=== PATIENT | female | born 1945 | race Caucasian/White ===

== ENCOUNTER 2016-05-03 08:29 | Emergency (ER) | payer MEDICARE ==
[2016-05-03 09:33] LABS: Hematocrit 43 % (35-47); Mean Corpuscular HGB Conc 33 g/dl (31-36); Mean Corpuscular Hemoglobin 30 pg (27-31); Mean Corpuscular Volume 90 fL (80-97); Mean Platelet Volume 8 um3 (7.4-10.4); Red Blood Count 4.74 10^6/ul (4.0-5.4); Red Cell Distribution Width 13 % (10.5-15); White Blood Count 8.5 10^3/ul (3.5-10.8)
[2016-05-03 09:48] LABS: Albumin 4.1 g/dL (3.2-5.2); BUN/Creatinine Ratio 17.4 (8-20); C Reactive Protein 1.86 mg/L (< 5.00); Calcium 9.4 mg/dL (8.6-10.3); Globulin 3.1 g/dL (2-4); Potassium 3.5 mmol/L (3.5-5.0); Total Bilirubin 0.6 mg/dL (0.2-1.0); Total Protein 7.2 g/dL (6.4-8.9)
[2016-05-03 09:50] LABS: Troponin I 0.01 ng/mL (<0.04)
--- NOTE | 2016-05-03 10:20 | RAD ---
INDICATION: Sudden onset shortness of breath started this morning. History of lung cancer and bronchitis. COMPARISON: February 16, 2016 thoracic spine radiographs. November 23, 2015 CT. TECHNIQUE: Multidetector CT images were obtained from the lung apices to the upper abdomen. Evaluation of the viscera is limited without IV contrast. REPORT: Elevated lung volumes and rarefaction of the interstitial markings consistent with chronic obstructive pulmonary disease and emphysema. No significant change in 1.9 x 3.8 cm region of soft tissue density at the apical and posterior segments of the RIGHT upper lobe approximating the major fissure seen in association with surgical clips and marginal bronchiectasis as well as less confluent opacity extending caudal compared with the November 23, 2015 exam. 0.8 x 0.6 cm nodule at the anterior basal segment of the RIGHT lower lobe just above the diaphragm is increased from 0.5 x 0.4 cm on the November 23, 2015 exam. On the coronal reformatted series reference image 62 the margins of the lesion appears spiculated. Mild predominant linear pleural parenchymal scarring at the LEFT lung base. No suspicious focal LEFT lung lesions. Negative for pleural effusions. Enlarged LEFT thyroid lobe with extension to the superior mediastinum without change. Negative for thoracic lymphadenopathy. Negative for cardiomegaly. Coronary artery calcifications. Images through the upper abdomen are remarkable for prior cholecystectomy. Unchanged severe anterior and middle column compression fracture at T6. No new thoracic fractures or suspicious focal osseous lesions evident. IMPRESSION: 1. 0.8 cm maximum dimension suspicious nodule at the anterior basal segment of the RIGHT lower lobe with significant interval increase in size from November 23, 2015 CT concerning for a metastasis or new bronchogenic carcinoma. Location is problematic for CT-guided biopsy due to location adjacent to the diaphragm. The lesion is too small to predictably characterize with PET CT. Thoracic surgery consultation suggested 2. No significant change in 1.9 x 3.8 cm region of soft tissue density at the apical and posterior segments of the RIGHT upper lobe approximating the major fissure seen in association with surgical clips and marginal bronchiectasis as well as less confluent opacity extending caudal compared with the November 23, 2015 exam. 3. Stigmata of advanced chronic obstructive pulmonary disease and emphysema.
[2016-05-03 13:30] VITALS: BP 112/81
--- NOTE | 2016-05-03 14:52 | ED ---
Robert Zhao Billy, scribed for Mitchel Grove MD on 05/03/16 at 0911 . Shortness of Breath - HPI Summary HPI Summary: Patient is a 70 year-old female with a history of COPD and lung cancer coming to [facility] for evaluation of constant SOB. She states that she has had bronchitis for the last 3 weeks, and her SOB worsened significantly this morning. She reports occasionally productive cough, mild dizziness, and night sweats. Denies any chest pain or N/V. 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 Current Severity: Moderate Dyspnea At: Rest Aggrevating Factors: Nothing Alleviating Factors: Nothing Associated Signs & Symptoms: Cough (Productive) - Allergy/Home Medications Allergies/Adverse Reactions: Allergies Allergy/AdvReac Type Severity Reaction Status Date / Time Vancomycin Allergy Severe Wheezing Verified 11/28/15 11:35 Daptomycin Allergy See Comment Verified 11/28/15 11:35 Doxycycline Allergy Vomiting Verified 11/28/15 11:35 Levofloxacin [From Levaquin] Allergy Rash Verified 11/28/15 11:35 Epinephrine AdvReac Severe Incr Verified 11/28/15 11:35 HR/N/V/feels faint Infliximab [From Remicade] AdvReac Severe arm Verified 11/28/15 11:35 swelling/pain/itching Tetanus Toxoid AdvReac Unknown arm Verified 11/28/15 11:35 pain/swelling/itching eggplant Allergy Severe Difficulty Uncoded 10/21/15 09:41 Breathing PMH/Surg Hx/FS Hx/Imm Hx Endocrine/Hematology History: Reports: Hx Anticoagulant Therapy - coumadin Denies: Hx Diabetes Cardiovascular History: Reports: Hx Deep Vein Thrombosis, Hx Embolism - PE, Hx Hypotension, Hx Syncope, 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 Denies: Hx Hypertension, Hx Pacemaker/ICD Respiratory History: Reports: Hx Asthma - "off and on", Hx Chronic Bronchitis, Hx Chronic Obstructive Pulmonary Disease (COPD), Hx Pulmonary Embolism - 2010, PE AND MESENTERIC THROMBOSIS, Hx Sleep Apnea, Other Respiratory Problems/ Disorders - wear O2 at hOME GI History: Reports: Hx Crohn's Disease - ILEOSTOMY, Hx Ileostomy, Other GI Disorders - Ileostomy placement Comment Only: Hx Ulcer - HYPERPARATHYROIDISM History: Reports: Hx Acute Renal Failure, Hx Chronic Renal Failure, Other Problems/Disorders - Renal deficit per Dr Whittaker Denies: Hx Dialysis, Hx Renal Disease Musculoskeletal History: Reports: Hx Back Problems, Hx Osteoporosis, Hx Scoliosis - lumbar disc problems; scoliosis Sensory History: Reports: Hx Cataracts - JANET, Hx Contacts or Glasses, Hx Hearing Problem - ears are "stopped up" lately Denies: Hx Hearing Aid Opthamlomology History: Reports: Hx Cataracts - JANET, Hx Contacts or Glasses Neurological History: Reports: Hx Nerve Disease - neuropathy, 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 SEVERAL BOWEL RESECTIONS AND FISTULA, [facility] Hx Anesthesia Reactions: Yes - LOW BP - Immunization History Date of Tetanus Vaccine: PT STATES UNSURE Date of Influenza Vaccine: PT STATES UNSURE Infectious Disease History: Yes Infectious Disease History: Reports: Hx of Known/Suspected MRSA Denies: Traveled Outside the [place] in Last 30 Days - Family History Known Family History: Positive: Unknown - Parents very young., Other - Crohn's Disease - Social History Alcohol Use: Rare Alcohol Amount: 1 Q 2-3 MONTHS Hx Substance Use: No Substance Use Type: Reports: Marijuana Substance Use Comment - Amount & Last Used: Medical Marijuana - once or twice a week Hx Tobacco Use: Yes Smoking Status (MU): Light Every Day Tobacco Smoker Type: Cigarettes Amount Used/How Often: 1-2 cigarettes per day Length of Time of Smoking/Using Tobacco: 53years Have You Smoked in the Last Year: Yes Review of Systems Positive: Skin Diaphoresis Negative: Chest Pain Positive: Shortness Of Breath, Cough Negative: Vomiting, Nausea Negative: Edema All Other Systems Reviewed And Are Negative: Yes Physical Exam - Summary Physical Exam Summary: The patient is an elderly female in moderate respiratory distress. The skin is warm and dry and skin color reflects adequate perfusion. HEENT: The head is normocephalic and atraumatic. The pupils are equal and reactive. The conjunctivae are clear and without drainage. Nares are patent and without drainage. Mouth reveals moist mucous membranes and the throat is without erythema and exudate. The external ears are intact. The ear canals are patent and without drainage. The tympanic membranes are intact. Neck is supple with full range of motion and non-tender. There are no carotid bruits. There is no neck vein distension. Respiratory: Chest is non-tender. There is bilateral wheezing, crackles in the bases of the lungs. She is speaking in full sentences. Cardiovascular: Heart is regular rate and rhythm. There is no murmur or rub auscultated. There is no peripheral edema and pulses are symmetrical and equal. Abdomen: The abdomen is soft and non-tender. There are normal bowel sounds heard in all four quadrants and there is no organomegaly palpated. Musculoskeletal: There is no back pain noted. Extremities are non-tender with full range of motion. There is good capillary refill. There is no peripheral edema or calf tenderness elicited. Neurological: Patient is alert and oriented to person, place and time. The patient has symmetrical motor strength in all four extremities. Cranial nerves are grossly intact. Deep tendon reflexes are symmetrical and equal in all four extremities. Psychiatric: The patient has an appropriate affect and does not exhibit any anxiety or depression. Triage Information Reviewed: Yes Vital Signs On Initial Exam: Initial Vitals Temp Pulse Resp BP Pulse Ox 98.1 F 82 23 137/76 97 05/03/16 08:42 05/03/16 08:42 05/03/16 08:42 05/03/16 08:42 05/03/16 08:42 Vital Signs Reviewed: Yes - Lluvia Coma Scale Coma Scale Total: 15 Diagnostics - Vital Signs Vital Signs Temp Pulse Resp BP Pulse Ox 05/03/16 08:42 98.1 F 82 23 137/76 97 - Laboratory Lab Results: Lab Results 05/03/16 05/03/16 05/03/16 Range/Units 09:11 09:11 09:11 WBC 8.5 (3.5-10.8) 10^3/ul RBC 4.74 (4.0-5.4) 10^6/ul Hgb 14.0 (12.0-16.0) g/dl Hct 43 (35-47) % MCV 90 (80-97) fL MCH 30 (27-31) pg MCHC 33 (31-36) g/dl RDW 13 (10.5-15) % Plt Count 249 (150-450) 10^3/ul MPV 8 (7.4-10.4) um3 Neut % (Auto) 63.0 (38-83) % Lymph % (Auto) 21.3 L (25-47) % [place] % (Auto) 10.7 H (1-9) % Eos % (Auto) 3.9 (0-6) % Baso % (Auto) 1.1 (0-2) % Absolute Neuts (auto) 5.4 (1.5-7.7) 10^3/ul Absolute Lymphs (auto) 1.8 (1.0-4.8) 10^3/ul Absolute Monos (auto) 0.9 H (0-0.8) 10^3/ul Absolute Eos (auto) 0.3 (0-0.6) 10^3/ul Absolute Basos (auto) 0.1 (0-0.2) 10^3/ul Absolute Nucleated RBC 0.01 10^3/ul Nucleated RBC % 0.2 APTT 46.7 H (26.0-36.3) seconds Sodium 137 (133-145) mmol/L Potassium 3.5 (3.5-5.0) mmol/L Chloride 99 L (101-111) mmol/L Carbon Dioxide 30 (22-32) mmol/L Anion Gap 8 (2-11) mmol/L BUN 31 H (6-24) mg/dL Creatinine 1.78 H (0.51-0.95) mg/dL Est GFR ( Amer) 36.0 (>60) Est GFR (Non-Af Amer) 28.0 (>60) BUN/Creatinine Ratio 17.4 (8-20) Glucose 105 H (70-100) mg/dL Lactic Acid (0.5-2.0) mmol/L Calcium 9.4 (8.6-10.3) mg/dL Total Bilirubin 0.60 (0.2-1.0) mg/dL AST 28 (13-39) U/L ALT 25 (7-52) U/L Alkaline Phosphatase 110 H (34-104) U/L Total Creatine Kinase 69 (10-223) U/L CK-MB (CK-2) 2.4 (0.6-6.3) ng/mL Troponin I 0.01 (<0.04) ng/mL C-Reactive Protein 1.86 (< 5.00) mg/L B-Natriuretic Peptide ( - 100) pg/mL Total Protein 7.2 (6.4-8.9) g/dL Albumin 4.1 (3.2-5.2) g/dL Globulin 3.1 (2-4) g/dL Albumin/Globulin Ratio 1.3 (1-3) Influenza A (Rapid) (Negative) Influenza B (Rapid) (Negative) 05/03/16 05/03/16 05/03/16 Range/Units 09:11 09:11 09:50 WBC (3.5-10.8) 10^3/ul RBC (4.0-5.4) 10^6/ul Hgb (12.0-16.0) g/dl Hct (35-47) % MCV (80-97) fL MCH (27-31) pg MCHC (31-36) g/dl RDW (10.5-15) % Plt Count (150-450) 10^3/ul MPV (7.4-10.4) um3 Neut % (Auto) (38-83) % Lymph % (Auto) (25-47) % [place] % (Auto) (1-9) % Eos % (Auto) (0-6) % Baso % (Auto) (0-2) % Absolute Neuts (auto) (1.5-7.7) 10^3/ul Absolute Lymphs (auto) (1.0-4.8) 10^3/ul Absolute Monos (auto) (0-0.8) 10^3/ul Absolute Eos (auto) (0-0.6) 10^3/ul Absolute Basos (auto) (0-0.2) 10^3/ul Absolute Nucleated RBC 10^3/ul Nucleated RBC % APTT (26.0-36.3) seconds Sodium (133-145) mmol/L Potassium (3.5-5.0) mmol/L Chloride (101-111) mmol/L Carbon Dioxide (22-32) mmol/L Anion Gap (2-11) mmol/L BUN (6-24) mg/dL Creatinine (0.51-0.95) mg/dL Est GFR ( Amer) (>60) Est GFR (Non-Af Amer) (>60) BUN/Creatinine Ratio (8-20) Glucose (70-100) mg/dL Lactic Acid 1.1 (0.5-2.0) mmol/L Calcium (8.6-10.3) mg/dL Total Bilirubin (0.2-1.0) mg/dL AST (13-39) U/L ALT (7-52) U/L Alkaline Phosphatase (34-104) U/L Total Creatine Kinase (10-223) U/L CK-MB (CK-2) (0.6-6.3) ng/mL Troponin I (<0.04) ng/mL C-Reactive Protein (< 5.00) mg/L B-Natriuretic Peptide 98 ( - 100) pg/mL Total Protein (6.4-8.9) g/dL Albumin (3.2-5.2) g/dL Globulin (2-4) g/dL Albumin/Globulin Ratio (1-3) Influenza A (Rapid) Negative (Negative) Influenza B (Rapid) Negative (Negative) Result Diagrams: 05/03/16 09:11 05/03/16 09:11 Lab Statement: Any lab studies that have been ordered have been reviewed, and results considered in the medical decision making process. - CT chest w/o CT Interpretation Completed By: Radiologist - 1. 0.8 cm maximum dimension suspicious nodule at the anterior basal segment of the RIGHT lower lobe with significant interval increase in size from November 23, 2015 CT concerning for a metastasis or new bronchogenic carcinoma. Location is problematic for CT- guided biopsy due to location adjacent to the diaphragm. The lesion is too small to predictably characterize with PET CT. Thoracic surgery consultation suggested 2. No significant change in 1.9 x 3.8 cm region of soft tissue density at the apical and posterior segments of the RIGHT upper lobe approximating the major fissure seen in association with surgical clips and marginal bronchiectasis as well as less confluent opacity extending caudal compared with the November 23, 2015 exam. 3. Stigmata of advanced chronic obstructive pulmonary disease and emphysema. - EKG 0853 EKG Interpretation: NSR 69 bpm, no ST elevation Course/Dx - Course Assessment/Plan: Patient is a 70 year-old female with a history of COPD and lung cancer coming to [facility] for evaluation of constant SOB. She states that she has had bronchitis for the last 3 weeks, and her SOB worsened significantly this morning. She reports occasionally productive cough, mild dizziness, and night sweats. Denies any chest pain or N/V. Bloodwork shows no increased WBC, she has chronic renal failure unchanged from baseline. Influenza A and B are negative. CT of the chest shows 0.8 cm nodule in the right lower lobe which has increased in size since November 23, 2015. The rest of the CT imaging is unchanged compared to previous. See radiologists report for further details. EKG shows a sinus rhythm [address] elevation. In the ED course, pt was given Duoneb and Solu-medrol with improvement. At this point, patient is feeling much better, has no SOB, and requested to be discharged home. Vital signs are stable, O2 sat is 96-98% on room air, therefore she will be discharged home to follow up with PCP. Hemodynamically stable, A&Ox3. She reports that she has a z-alem which she will start today, ordered by PCP. I discussed all the findings and test results with the patient. Patient was instructed to return to the emergency room immediately if any of the symptoms return or worsens. Plan of care was discussed with the patient and understands and agrees. All questions were answered at patient satisfaction. There were no further complaints or concerns. Lung exam before discharge: CTA B/L. Good air exchange. No wheezing or crackles heard. CVS: S1 and S2 present. No murmurs appreciated. Patient is alert and oriented x 3. Patient is hemodynamically stable. 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
== END 2016-05-03 13:25 | disposition home or self-care (01) ==
LOC: ED 08:29
DX: J44.1 Chronic obstructive pulmonary disease with (acute) exacerbation (principal); R06.02 Shortness of breath; R05 Cough; F17.210 Nicotine dependence, cigarettes, uncomplicated
CPT/HCPCS: 36415; 71250; 80053; 82550; 82553; 83605; 83880; 84484; 85025; 85610; 85730; 86140; 87040; 87502; 93005; 99284

== ENCOUNTER 2016-05-13 14:05 | Inpatient (IN) | payer MEDICARE ==
[2016-05-13] MEDS ORDERED: Ipratropium 0.5MG/2.5ML NEB* 0.5 MG/2.5 ML NEB.SOLN INH ONE (14:52)
[2016-05-13 15:18] LABS: Hematocrit 41 % (35-47); Hemoglobin 13.6 g/dl (12.0-16.0); Mean Corpuscular HGB Conc 33 g/dl (31-36); Mean Corpuscular Hemoglobin 29 pg (27-31); Mean Corpuscular Volume 89 fL (80-97); Mean Platelet Volume 8 um3 (7.4-10.4); Red Blood Count 4.64 10^6/ul (4.0-5.4); Red Cell Distribution Width 13 % (10.5-15); White Blood Count 10.6 10^3/ul (3.5-10.8)
[2016-05-13 15:35] LABS: ALT 36 U/L (7-52); Albumin 3.7 g/dL (3.2-5.2); Alkaline Phosphatase 92 U/L (34-104); BUN/Creatinine Ratio 20.1 (8-20); Blood Urea Nitrogen 34 mg/dL (6-24); CO2 Carbon Dioxide 27 mmol/L (22-32); Calcium 8.9 mg/dL (8.6-10.3); Chloride 101 mmol/L (101-111); EGFR African American 38.3 (>60); EGFR Non-African American 29.7 (>60); Globulin 2.9 g/dL (2-4); Glucose 132 mg/dL (70-100); Sodium 138 mmol/L (133-145); Total Protein 6.6 g/dL (6.4-8.9)
--- NOTE | 2016-05-13 16:02 | RAD ---
Indication: Shortness of breath. 2 views of the chest including dual energy PA views demonstrates no mediastinal shift. Heart is normal size and configuration. Right upper lobe airspace disease is noted and is unchanged from 05/03/2016 and 11/28/2015. 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 Otherwise lung randall appear hyperinflated no changes are noted. 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 Findings are not significantly changed since November 28, 2015 with no evidence of active infiltrate.
--- NOTE | 2016-05-13 16:58 | ED ---
Laura Zhao Alok, scribed for Caro Man MD on 05/13/16 at 1445 . Shortness of Breath - HPI Summary HPI Summary: 70 y/o female presents to the ED c/o of SOB for the last two weeks and a cough for the last two months. PMHx includes COPD and Cron's disease. Pt takes steroids and is on 4L O2 at home. - History of Current Complaint Chief Complaint: EDShortnessOfBreath Time Seen by Provider: 05/13/16 14:19 Hx Obtained From: Patient Onset/Duration: Sudden Onset, Lasting Weeks, Still Present Timing: Constant Current Severity: Moderate Aggrevating Factors: Nothing Alleviating Factors: Nothing Associated Signs & Symptoms: Cough (Nonproductive), Wheezing - Allergy/Home Medications Allergies/Adverse Reactions: Allergies Allergy/AdvReac Type Severity Reaction Status Date / Time Vancomycin Allergy Severe Wheezing Verified 11/28/15 11:35 Daptomycin Allergy See Comment Verified 11/28/15 11:35 Doxycycline Allergy Vomiting Verified 11/28/15 11:35 Levofloxacin [From Levaquin] Allergy Rash Verified 11/28/15 11:35 Epinephrine AdvReac Severe Incr Verified 11/28/15 11:35 HR/N/V/feels faint Infliximab [From Remicade] AdvReac Severe arm Verified 11/28/15 11:35 swelling/pain/itching Tetanus Toxoid AdvReac Unknown arm Verified 11/28/15 11:35 pain/swelling/itching eggplant Allergy Severe Difficulty Uncoded 10/21/15 09:41 Breathing Home Medications: Home Medications Albuterol Sulfate [Proair Respiclick] 1 puff INH Q6HR PRN 05/13/16 [History Confirmed 05/13/16] Aspirin Low Dose CHEW TAB* [Aspirin Low Dose TAB*] 81 mg PO QAM 05/13/16 [ History Confirmed 05/13/16] Budesonide/Formote 160/4.5(NF) [Symbicort 160/4.5 (NF)] 1 puff INH BID 05/13/16 [History Confirmed 05/13/16] Calcitriol CAP* [Rocaltrol CAP*] 0.25 mcg PO QAM 05/13/16 [History Confirmed ] Cyanocobalamin INJ * [Vitamin B12 INJ *] 1,000 mcg IM Q14D 05/13/16 [History Confirmed 05/13/16] LORazepam TAB(*) [Ativan 0.5 MG TAB (*)] 0.25 mg PO QAM PRN 05/13/16 [History Confirmed 05/13/16] LORazepam TAB(*) [Ativan 1 MG TAB (*)] 1 mg PO BEDTIME PRN 05/13/16 [History Confirmed 05/13/16] PARoxetine HCL TAB* [Paxil TAB*] 20 mg PO BEDTIME 05/13/16 [History Confirmed ] Tiotropium CAP.INH* [Spiriva CAP.INH*] 1 cap.inh INH DAILY 05/13/16 [History Confirmed 05/13/16] Warfarin TAB(*) [Coumadin TAB(*)] 2 mg PO QPM 05/13/16 [History Confirmed ] guaiFENesin ER TAB [Mucinex*] 600 mg PO BID PRN 05/13/16 [History Confirmed ] predniSONE TAB* [Deltasone TAB*] 10 mg PO DAILY 05/13/16 [History Confirmed ] PMH/Surg Hx/FS Hx/Imm Hx Endocrine/Hematology History: Reports: Hx Anticoagulant Therapy - coumadin Denies: Hx Diabetes Cardiovascular History: Reports: Hx Deep Vein Thrombosis, Hx Embolism - PE, Hx Hypotension, Hx Syncope, 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 Denies: Hx Hypertension, Hx Pacemaker/ICD Respiratory History: Reports: Hx Asthma - "off and on", Hx Chronic Bronchitis, Hx Chronic Obstructive Pulmonary Disease (COPD), Hx Pulmonary Embolism - 2010, PE AND MESENTERIC THROMBOSIS, Hx Sleep Apnea, Other Respiratory Problems/ Disorders - wear O2 at hOME GI History: Reports: Hx Crohn's Disease - ILEOSTOMY, Hx Ileostomy, Other GI Disorders - Ileostomy placement Comment Only: Hx Ulcer - HYPERPARATHYROIDISM History: Reports: Hx Acute Renal Failure, Hx Chronic Renal Failure, Other Problems/Disorders - Renal deficit per Dr Whittaker Denies: Hx Dialysis, Hx Renal Disease Musculoskeletal History: Reports: Hx Back Problems, Hx Osteoporosis, Hx Scoliosis - lumbar disc problems; scoliosis Sensory History: Reports: Hx Cataracts - JANET, Hx Contacts or Glasses, Hx Hearing Problem - ears are "stopped up" lately Denies: Hx Hearing Aid Opthamlomology History: Reports: Hx Cataracts - JANET, Hx Contacts or Glasses Neurological History: Reports: Hx Nerve Disease - neuropathy, 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 SEVERAL BOWEL RESECTIONS AND FISTULA, [facility] Hx Anesthesia Reactions: Yes - LOW BP - Immunization History Date of Tetanus Vaccine: PT STATES UNSURE Date of Influenza Vaccine: PT STATES UNSURE Infectious Disease History: No Infectious Disease History: Reports: Hx of Known/Suspected MRSA Denies: Traveled Outside the [place] in Last 30 Days - Family History Known Family History: Positive: Unknown - Parents very young., Other - Crohn's Disease - Social History Alcohol Use: Rare Alcohol Amount: 1 Q 2-3 MONTHS Hx Substance Use: No Substance Use Type: Reports: Marijuana Substance Use Comment - Amount & Last Used: Medical Marijuana - once or twice a week Hx Tobacco Use: Yes Smoking Status (MU): Light Every Day Tobacco Smoker Type: Cigarettes Amount Used/How Often: 1-2 cigarettes per day Length of Time of Smoking/Using Tobacco: 53years Have You Smoked in the Last Year: Yes Review of Systems Negative: Fever Positive: Shortness Of Breath, Cough All Other Systems Reviewed And Are Negative: Yes Physical Exam Triage Information Reviewed: Yes Vital Signs On Initial Exam: Initial Vitals Temp Pulse Resp BP Pulse Ox 98.5 F 80 16 101/73 95 05/13/16 14:12 05/13/16 14:12 05/13/16 14:12 05/13/16 14:12 05/13/16 14:12 Vital Signs Reviewed: Yes Appearance: Positive: Well-Appearing, No Pain Distress Skin: Positive: Warm, Skin Color Reflects Adequate Perfusion, Dry Eyes: Positive: EOMI, RUMA ENT: Positive: Pharynx normal, TMs normal Neck: Positive: Supple, Nontender Respiratory/Lung Sounds: Positive: Breath Sounds Present, Wheezes - Expiratory. Negative: Rales, Rhonchi Cardiovascular: Positive: RRR. Negative: Murmur, Rub, Other - Gallops Abdomen Description: Positive: Nontender, Soft Bowel Sounds: Positive: Present Musculoskeletal: Positive: Strength/ROM Intact. Negative: Edema Left, Edema Right Neurological: Positive: Sensory/Motor Intact, Alert, Oriented to Person Place, Time, CN Intact II-III Psychiatric: Positive: Affect/Mood Appropriate - Lluvia Coma Scale Coma Scale Total: 15 Diagnostics - Vital Signs Vital Signs Temp Pulse Resp BP Pulse Ox 05/13/16 14:15 76 101/73 94 05/13/16 14:14 80 92 05/13/16 14:12 98.5 F 80 16 101/73 95 - Laboratory Lab Results: Lab Results 05/13/16 05/13/16 05/13/16 Range/Units 15:10 15:10 15:10 WBC 10.6 (3.5-10.8) 10^3/ul RBC 4.64 (4.0-5.4) 10^6/ul Hgb 13.6 (12.0-16.0) g/dl Hct 41 (35-47) % MCV 89 (80-97) fL MCH 29 (27-31) pg MCHC 33 (31-36) g/dl RDW 13 (10.5-15) % Plt Count 260 (150-450) 10^3/ul MPV 8 (7.4-10.4) um3 Neut % (Auto) 84.0 H (38-83) % Lymph % (Auto) 12.1 L (25-47) % Ray % (Auto) 2.7 (1-9) % Eos % (Auto) 0.7 (0-6) % Baso % (Auto) 0.5 (0-2) % Absolute Neuts (auto) 8.9 H (1.5-7.7) 10^3/ul Absolute Lymphs (auto) 1.3 (1.0-4.8) 10^3/ul Absolute Monos (auto) 0.3 (0-0.8) 10^3/ul Absolute Eos (auto) 0.1 (0-0.6) 10^3/ul Absolute Basos (auto) 0.1 (0-0.2) 10^3/ul Absolute Nucleated RBC 0 10^3/ul Nucleated RBC % 0 INR (Anticoag Therapy) 3.88 H (0.89-1.11) Sodium 138 (133-145) mmol/L Potassium TNP Chloride 101 (101-111) mmol/L Carbon Dioxide 27 (22-32) mmol/L Anion Gap TNP BUN 34 H (6-24) mg/dL Creatinine 1.69 H (0.51-0.95) mg/dL Est GFR ( Amer) 38.3 (>60) Est GFR (Non-Af Amer) 29.7 (>60) BUN/Creatinine Ratio 20.1 H (8-20) Glucose 132 H (70-100) mg/dL Lactic Acid (0.5-2.0) mmol/L Calcium 8.9 (8.6-10.3) mg/dL Total Bilirubin 0.50 (0.2-1.0) mg/dL AST TNP ALT 36 (7-52) U/L Alkaline Phosphatase 92 (34-104) U/L Troponin I 0.00 (<0.04) ng/mL Total Protein 6.6 (6.4-8.9) g/dL Albumin 3.7 (3.2-5.2) g/dL Globulin 2.9 (2-4) g/dL Albumin/Globulin Ratio 1.3 (1-3) // Range/Units 15:10 WBC (3.5-10.8) 10^3/ul RBC (4.0-5.4) 10^6/ul Hgb (12.0-16.0) g/dl Hct (35-47) % MCV (80-97) fL MCH (27-31) pg MCHC (31-36) g/dl RDW (10.5-15) % Plt Count (150-450) 10^3/ul MPV (7.4-10.4) um3 Neut % (Auto) (38-83) % Lymph % (Auto) (25-47) % Ray % (Auto) (1-9) % Eos % (Auto) (0-6) % Baso % (Auto) (0-2) % Absolute Neuts (auto) (1.5-7.7) 10^3/ul Absolute Lymphs (auto) (1.0-4.8) 10^3/ul Absolute Monos (auto) (0-0.8) 10^3/ul Absolute Eos (auto) (0-0.6) 10^3/ul Absolute Basos (auto) (0-0.2) 10^3/ul Absolute Nucleated RBC 10^3/ul Nucleated RBC % INR (Anticoag Therapy) (0.89-1.11) Sodium (133-145) mmol/L Potassium Chloride (101-111) mmol/L Carbon Dioxide (22-32) mmol/L Anion Gap BUN (6-24) mg/dL Creatinine (0.51-0.95) mg/dL Est GFR ( Amer) (>60) Est GFR (Non-Af Amer) (>60) BUN/Creatinine Ratio (8-20) Glucose (70-100) mg/dL Lactic Acid 2.2 H* (0.5-2.0) mmol/L Calcium (8.6-10.3) mg/dL Total Bilirubin (0.2-1.0) mg/dL AST ALT (7-52) U/L Alkaline Phosphatase (34-104) U/L Troponin I (<0.04) ng/mL Total Protein (6.4-8.9) g/dL Albumin (3.2-5.2) g/dL Globulin (2-4) g/dL Albumin/Globulin Ratio (1-3) Result Diagrams: 05/13/16 15:10 05/13/16 16:28 Lab Statement: Any lab studies that have been ordered have been reviewed, and results considered in the medical decision making process. 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 Findings are not significantly changed since November 28, 2015 with no evidence of active infiltrate. Radiology Interpretation Completed By: Radiologist - EKG 1429 Cardiac Rate: NL EKG Rhythm: Sinus Rhythm - 70 bpm Course/Dx - Course Course Of Treatment: lactic elevated but is not likely real because labs were hemolyzed. INR is elevated, PE is in the differential but less likely given the INR, she has elevated renal function. Talked with Dr. Gross about pt will at this point leave it up to them about whether a CTA chest is required. - Diagnoses Provider Diagnoses: Dyspnea Discharge - Discharge Plan Condition: Stable Disposition: ADMITTED TO [facility] documentation as recorded by the Laura ray Alok accurately reflects the service I personally performed and the decisions made by me, Caro Man MD.
[2016-05-13] MEDS ORDERED: Albuterol/Ipratropium NEB.SOL* Albuterol 2.5 MG/Ipratropium 0.5 MG 3 ML INH PRN (17:52)
[2016-05-13] MEDS ORDERED: LORazepam TAB(*) 0.5 MG PO PRN (18:05)
[2016-05-13] MEDS: LORazepam TAB(*) 1 MG PO PRN ×2 (19:32→23:32)
[2016-05-13] MEDS: methylPREDNISolone 125 MG* 2 ML VIAL IV SCH (19:33)
[2016-05-13] MEDS: NS 0.9% 1000 ML* 1,000 ML IV SCH (19:36)
[2016-05-13] MEDS ORDERED: Ipratropium 0.5MG/2.5ML NEB* 0.5 MG/2.5 ML NEB.SOLN INH SCH (21:00)
[2016-05-13] MEDS ORDERED: Morphine ORAL CONCENTRATE* 5 MG/0.25 ML ORAL.SYRIN SL PRN (21:14)
[2016-05-13] MEDS: Mometasone/Formoter 200/5 MDI INH SCH (22:15)
[2016-05-13] MEDS: PARoxetine HCL TAB* 20 MG PO SCH (22:20)
[2016-05-13] MEDS: Opium Tincture* 6 MG/0.6 ML ORAL.LIQ SYRINGE PO SCH (22:21)
--- NOTE | 2016-05-14 00:28 | CONS ---
PULMONARY CONSULTATION REPORT: DATE OF CONSULT: 05/13/16 CONSULTATION REQUESTED BY: Dr. Caro Man. REASON FOR CONSULT: Evaluation of shortness of breath. HISTORY OF PRESENT ILLNESS: The patient is a 70-year-old female with multiple comorbidities, current smoker, recently diagnosed with stage I lung cancer. The patient was deemed not a surgical candidate, subsequently underwent radiation. The patient has been having gradually worsening shortness of breath. The patient was recently evaluated in the emergency room 1 week ago for similar complaints. The patient had CT scan of the chest performed at that time which was suggestive of interval increase in size of 0.8-cm nodule in right lower lobe. The patient also had 1.9 x 3.8 cm soft tissue density in the apical posterior segment of right upper lobe for which she was treated with radiation. The patient was recently being treated as an outpatient for acute COPD exacerbation with steroids and antibiotics. The patient has continued to have worsening shortness of breath with minimal exertion. Her O2 requirements have also increased at home. The patient uses nebulizers at home. The patient did not have improvement in symptoms and decided to come in to the ED today. The patient was seen and examined at bedside earlier today. The patient reported slight improvement in shortness of breath since she received treatments in the emergency room. The patient had chest x-ray in the emergency room, which was personally reviewed by me. The patient did not have acute changes compared to prior imaging studies. The patient did not have white count today. The patient noted to have mildly elevated lactic acid. The patient did not have evidence of hypercapnia. The patient is requiring O2 supplementation at 4 L currently. No acute changes on EKG were noted. The patient is being admitted for management of acute COPD exacerbation. PAST MEDICAL HISTORY: 1. Crohn's disease, status post ileostomy with high-output state. 2. Osteoporosis. 3. Chronic kidney disease. 4. Pulmonary embolism, on Coumadin. 5. Thyroid disease. 6. Lung cancer, adenocarcinoma diagnosed in 2014, slow growing, not a surgical candidate, received XRT. 7. COPD, moderate obstruction, severely decreased DLCO. 8. Obstructive sleep apnea. 9. Current smoking history. 10. Gout. 11. Depressive disorder. 12. Osteoporosis. 13. Anemia. PAST SURGICAL HISTORY: 1. Colectomy, status post ileal resection x2. 2. Rectal abscess and fistula. The patient was hospitalized in [place] in February of 2014 for severe MRSA pneumonia. ALLERGIES: EPINEPHRINE, REMICADE, TETANUS, DAPTOMYCIN, VANCOMYCIN, EGGPLANT, LEVAQUIN, DOXYCYCLINE, AUGMENTIN. FAMILY HISTORY: Heart disease in father. Suicide in mother. SOCIAL HISTORY: The patient lives alone at home. 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 Current smoker, smokes every day, at least half pack per day. Currently smoking 2 to 3 cigarettes per day. No alcohol or drug abuse. REVIEW OF SYSTEMS: All 14 systems reviewed and as per HPI. PHYSICAL EXAM: The patient sitting in bed and leaning forward in tripod positioning. Vital Signs: Temperature 98.5, pulse 78 beats per minute, respiratory rate 20 per minute, O2 sat 95% on 4 L, blood pressure 100/59. HEENT : Pupils equal, reactive to light. Mucous membranes moist. Lungs: Scattered wheeze present bilaterally, rhonchi present. Cardiovascular: S1, S2 present, regular. Abdomen: Soft, nontender, nondistended. Bowel sounds present. Extremities: Normal range of motion. No edema. Skin: No rash or bruises. Neuro: No focal deficits. DIAGNOSTIC STUDIES/LAB DATA: WBC count 10.6, hemoglobin 13.6, hematocrit 41, platelet count 260. INR 3.88. Sodium 138, potassium 4.4, chloride 101, bicarb 27, BUN 34, creatinine 1.69, lactic acid 2.2. LFTs within normal limits. Influenza A and B negative a week ago. Chest x-ray as described above in HPI. IMPRESSION AND RECOMMENDATIONS: 70-year-old female known to me from outpatient evaluation with history of severe chronic obstructive pulmonary disease, O2 dependent; history of adenocarcinoma of the lung, not a candidate for surgery, so underwent radiation with recent emergency room evaluation for worsening shortness of breath, now with acute chronic obstructive pulmonary disease exacerbation. 1. Acute chronic obstructive pulmonary disease exacerbation, likely secondary to viral bronchitis. The patient with diffuse wheezing, however, with clear phlegm. The patient being treated as an outpatient with no significant improvement. Will admit the patient for IV prednisone, IV Solu-Medrol, bronchodilators. The patient on Spiriva and Symbicort as an outpatient and does not see significant improvement. Will try Bevaspi. Continue with nebulizers.Continue with O2 supplementation. Will reassess in the morning. Further management of other underlying conditions as per hospitalist team. [id number]/[facility] #: [id number] [facility]
--- NOTE | 2016-05-14 00:44 | HP ---
HOSPITAL MEDICINE HISTORY AND PHYSICAL: DATE OF ADMISSION: 05/13/16 PRIMARY CARE PHYSICIAN: Suzette France MD ATTENDING PHYSICIAN: Shadia Gross DO* (dictation provided by Leana Onofre NP) CHIEF COMPLAINT: Shortness of breath and cough. HISTORY OF PRESENT ILLNESS: Ms. Tovar is a 70-year-old female with a past medical history of COPD and Crohn disease, status post ileostomy as well as chronic kidney disease who presents to the hospital today with concern for shortness of breath and cough. She states that she first began feeling worse about a month ago with increased shortness of breath and cough. At about 2 weeks ago, she was unable to walk more than 5 or 6 steps to the bathroom without becoming short of breath and quite dyspneic. With this, her anxiety has increased as well. She denies any fevers and any chills. Her cough is unchanged. She has been having a poor appetite and states that she has lost about 12 pounds over that course of time. She did come to the emergency room on 05/03/16 and at that time, she had a CT of the chest, which showed no change from previous with a history of the right lung nodule and soft tissue density on the right. No evidence of pneumonia. At that point, the patient completed a course of azithromycin and she was not treated with steroids. She did contact Dr. Zuniga regarding her shortness of breath and Dr. Zuniga started steroids a few days later. The patient states she has almost completed the taper, but showed no improvement in her symptoms at all. Today, she comes in to the emergency room because she has been so ill that she was not even able to make it to Dr. Zuniga's office and it was felt that she needed emergency evaluation. In the emergency room, Ms. Tovar had a chest x-ray, which showed no acute abnormality. Her labs are essentially unremarkable. She does have chronic kidney disease that is at baseline. Her lactic acid is mildly elevated at 2.2. Her INR is mildly elevated at 3.88. PAST MEDICAL HISTORY: 1. COPD, on 3 to 4 L of oxygen at home. 2. Crohn disease with placement of ileostomy. 3. History of lung malignancy, status post radiation, not currently on treatment. 4. CKD, stage 3. 5. DVT with PE, on chronic Coumadin. 6. Restless leg syndrome. 7. Anxiety. 8. Depression. MEDICATIONS: 1. Albuterol 1 puff inhaled q.6 hours p.r.n. 2. Budesonide/formoterol 160/4.5 mcg 1 puff inhaled b.i.d. 3. Cyanocobalamin 1000 mcg 2 weeks. 4. Warfarin 2 mg p.o. daily. 5. Prednisone 10 mg p.o. daily. 6. Aspirin 81 mg p.o. daily. 7. Calcitriol 0.25 mcg p.o. daily. 8. Sensipar 30 mg p.o. q.a.m. 9. Lorazepam 0.25 mg in the a.m. and 1 mg at bedtime as well as q.4 hours p.r.n. 10. Opium tincture 0.6 mL p.o. q.4 hours. 11. Paroxetine 20 mg p.o. bedtime. 12. Tiotropium 18 mcg inhaled daily. 13. Guaifenesin 600 mg p.o. b.i.d. FAMILY HISTORY: The patient reports her father of heart disease. Paternal grandmother had diabetes. SOCIAL HISTORY: The patient has a [id number] history, but states that in the past few months, she has only been smoking 2 cigarettes per day and in the past few weeks, she has not smoked at all. She reports marijuana use that helps with her anxiety and no significant alcohol use. She lives with her partner, Nikki Desir, who is her health care proxy. REVIEW OF SYSTEMS: A 14-point review of systems was completed with Ms. Tovar and all those mentioned above are negative. PHYSICAL EXAMINATION GENERAL: Ms. Tovar is sitting up in the bed. She is in no acute distress. VITAL SIGNS: Temperature 98.5, heart rate 62, respiratory rate 17, O2 saturation 97% on 4 L nasal cannula, and blood pressure 100/59. LUNGS: Clear to auscultation bilaterally with no accessory muscle use and good aeration. The patient is coughing frequently and severely, but again, the lungs are clear. HEART: S1, S2. No murmur, rub, or gallop and regular. ABDOMEN: Soft and nontender with bowel sounds positive x4. EXTREMITIES: No cyanosis or edema. NEUROLOGIC: She is alert. She is oriented x3. She moves all extremities equally. There is no facial asymmetry or focal weakness. Extraocular movements are intact. SKIN: Intact. DIAGNOSTIC STUDIES/LAB DATA: WBC 10.6, hemoglobin 13.6, hematocrit 41, and platelet count 260. INR 3.88. Sodium 138, potassium 4.4, chloride 101, serum bicarbonate 27, BUN 34, creatinine 1.69, glucose 132, lactic acid 2.2. Chest x-ray shows no acute process. EKG shows a sinus rhythm with no evidence of ischemia and a heart rate of about 70. ASSESSMENT: Ms. Tovar is a 70-year-old female with a past medical history of chronic obstructive pulmonary disease on 3 to 4 L of oxygen at home as well as a lung malignancy, status post treatment, Crohn disease with ileostomy and chronic kidney disease, stage 3 who presents today to the hospital with concern for worsening shortness of breath and cough. PLAN/RECOMMENDATIONS: Our plans are for observation in the hospital for the followin. Shortness of breath and cough: I suspect that Ms. Tovar's symptoms are related to chronic obstructive pulmonary disease. She has had decline over the past month and has not improved despite treatment with azithromycin and prednisone. I am concerned that the patient's symptoms are simply a progression of her underlying disease. The patient has been seen by Dr. Zuniga in the emergency room who follows her outpatient and her recommendations are to treat with steroids and duo nebulizers and oxygen as well as anxiolytics. The patient will therefore have Solu-Medrol, duo nebulizers, oxygen, and increased dose of lorazepam as needed to help with symptoms of shortness of breath. I have also suggested to Ms. Tovar that morphine would likely be very helpful in symptom management going forward; she has agreed to trial that here. I see no evidence of infection. The patient has therapeutic goal with her INR, so I have no concern for pulmonary embolism. The patient's lungs are clear. No concern for congestive heart failure. 2. History of deep vein thrombosis/pulmonary embolism: Continue warfarin at lower dose given that she is supratherapeutic. 3. Chronic kidney disease, stage 3: The patient is at baseline. Plan to continue her home medications. I will give her gentle hydration x1 L as she is so very prone to acute renal failure due to her high output ostomy. 4. Depression: Continue Paxil. 5. Code status: DNR. 6. Disposition: To the medical floor. TIME SPENT: Approximately 60 minutes was spent in the admission of this patient , more than half of the time was spent with the patient at the bedside reviewing the events leading up to this hospitalization, performing the physical examination, and reviewing my plan of care. LEANA ONOFRE NP CC: Dr. Zuniga; Dr. France* [id number]/[facility] #: [id number] [facility]
[2016-05-14] MEDS: Opium Tincture* 6 MG/0.6 ML ORAL.LIQ SYRINGE PO SCH ×6 (02:18→21:53)
[2016-05-14] MEDS: NS 0.9% 1000 ML* 1,000 ML IV SCH (05:36)
[2016-05-14] MEDS: methylPREDNISolone 125 MG* 2 ML VIAL IV SCH ×2 (06:06→17:31)
[2016-05-14] MEDS ORDERED: Spiriva Inhaler DEVICE* 1 EACH DEVICE INH ONE (09:00)
[2016-05-14] MEDS: Calcitriol CAP* 0.25 MCG PO SCH (09:30)
[2016-05-14] MEDS: Aspirin Low Dose CHEW TAB* 81 MG PO SCH (09:30)
[2016-05-14] MEDS: Cinacalcet TAB* 30 MG PO SCH (09:30)
[2016-05-14] MEDS: LORazepam TAB(*) 1 MG PO PRN ×4 (09:30→21:53)
[2016-05-14] MEDS: Mometasone/Formoter 200/5 MDI INH SCH (10:07)
[2016-05-14] MEDS: Tiotropium CAP.INH* CAP.INH/18 MCG (USE ORDER SET !) INH SCH (10:07)
[2016-05-14] MEDS: Levalbuterol 1.25MG/0.5ML NEB INH PRN ×2 (12:12→22:56)
--- NOTE | 2016-05-14 13:10 | PN ---
Subjective Date of Service: 05/14/16 Interval History: Patient seen and examined at bedside. She reports mild improvement in breathing today. Denies CP, abd pain, n/v. Patient has tried new inhaler provided by Dr. Zuniga. Has requested to continue IVF x 1 more liter due to high ileostomy output. No other acute concerns. Family History: Unchanged from Admission Social History: Unchanged from Admission Past Medical History: Unchanged from Admission Objective Active Medications: Aspirin (Aspirin Low Dose Tab*) 81 mg PO QAM [facility] Last Admin: 05/14/16 09:30 Dose: 81 mg Calcitriol (Rocaltrol Cap*) 0.25 mcg PO QAM [facility] Last Admin: 05/14/16 09:30 Dose: 0.25 mcg Cinacalcet (Sensipar Tab*) 30 mg PO QAM [facility] Last Admin: 05/14/16 09:30 Dose: 30 mg Guaifenesin (Mucinex*) 600 mg PO BID PRN PRN Reason: CONGESTION Sodium Chloride (Ns 0.9% 1000 Ml*) 1,000 mls @ 100 mls/hr IV PER RATE [facility] Last Admin: 05/14/16 05:36 Dose: 100 mls/hr Levalbuterol HCl (Xopenex 1.25 Mg/0.5 Ml Neb.Vesna*) 1.25 mg INH Q6H PRN PRN Reason: SOB/WHEEZING Last Admin: 05/14/16 12:12 Dose: 1.25 mg Lorazepam (Ativan Tab(*)) 1 mg PO BEDTIME PRN PRN Reason: ANXIETY Last Admin: 05/13/16 23:32 Dose: 1 mg Lorazepam (Ativan Tab(*)) 0.25 mg PO QAM PRN PRN Reason: ANXIETY Lorazepam (Ativan Tab(*)) 1 mg PO Q4H PRN PRN Reason: ANXIETY Last Admin: 05/14/16 09:30 Dose: 1 mg Methylprednisolone Sodium Succinate (Solu-Medrol*) 60 mg IV Q12H [facility] Last Admin: 05/14/16 06:06 Dose: 60 mg Mometasone Furoate/Formoterol Fumar (Dulera 200/5 Mdi*) 2 puff INH BID [facility] Last Admin: 05/14/16 10:07 Dose: Not Given Morphine Sulfate (Morphine Oral Concentrate*) 2.5 mg SL Q1H PRN PRN Reason: SHORTNESS OF BREATH Non-Formulary Medication (Non Formulary Med10*) 2 admin INH BID [facility] Opium Tincture (Opium Tincture*) 6 mg PO Q4HR [facility] Last Admin: 05/14/16 09:31 Dose: 6 mg Paroxetine HCl (Paxil Tab*) 20 mg PO BEDTIME [facility] Last Admin: 05/13/16 22:20 Dose: 20 mg Pharmacy Profile Note (Coumadin Daily Reminder*) 1 note FOLLOW UP 1700 [facility] Tiotropium [place] (Spiriva Cap.Inh*) 1 cap INH DAILY [facility] Last Admin: 05/14/16 10:07 Dose: Not Given Warfarin Sodium (Coumadin Tab(*)) 1.5 mg PO DAILY@1700 [facility] PRN Reason: Protocol Vital Signs 05/13/16 05/13/16 05/13/16 18:00 18:59 19:32 Temperature 98.1 F Pulse Rate 70 73 Respiratory 18 16 22 Rate Blood Pressure 131/65 (mmHg) O2 Sat by Pulse 94 97 Oximetry 05/13/16 05/13/16 05/13/16 19:48 21:32 22:21 Temperature Pulse Rate 70 Respiratory 18 20 22 Rate Blood Pressure (mmHg) O2 Sat by Pulse 94 Oximetry 05/13/16 05/13/16 05/14/16 22:50 23:32 00:19 Temperature 98.3 F Pulse Rate 83 Respiratory 20 20 18 Rate Blood Pressure 129/52 (mmHg) O2 Sat by Pulse 94 Oximetry 05/14/16 05/14/16 05/14/16 00:21 01:32 02:18 Temperature Pulse Rate Respiratory 20 18 18 Rate Blood Pressure (mmHg) O2 Sat by Pulse Oximetry 05/14/16 05/14/16 05/14/16 04:03 04:18 06:05 Temperature 97.9 F Pulse Rate 85 Respiratory 16 18 18 Rate Blood Pressure 118/50 (mmHg) O2 Sat by Pulse 93 Oximetry 05/14/16 05/14/16 05/14/16 07:56 08:05 09:30 Temperature 97.6 F Pulse Rate 52 Respiratory 16 16 16 Rate Blood Pressure 123/50 (mmHg) O2 Sat by Pulse 97 Oximetry 05/14/16 05/14/16 05/14/16 09:31 11:30 11:49 Temperature 97.7 F Pulse Rate 50 Respiratory 16 16 16 Rate Blood Pressure 124/56 (mmHg) O2 Sat by Pulse 96 Oximetry 05/14/16 12:36 Temperature Pulse Rate 55 Respiratory 16 Rate Blood Pressure (mmHg) O2 Sat by Pulse 97 Oximetry Oxygen Devices in Use Now: Nasal Cannula - 2Lnc Appearance: Chronically ill appearing female, lying in bed, eating lunch, in NAD Eyes: PERRLA Ears/Nose/Mouth/Throat: Mucous Membranes Moist Neck: NL Appearance and Movements; NL JVP Respiratory: Symmetrical Chest Expansion and Respiratory Effort, - - scattered expiratory wheezing Cardiovascular: NL Sounds; No Murmurs; No JVD, RRR Abdominal: NL Sounds; No Tenderness; No Distention Extremities: No Edema Skin: No Rash or Ulcers Neurological: Alert and Oriented x 3, NL Muscle Strength and Tone Lines/Tubes/Other Access: Clean, Dry and Intact Peripheral IV Nutrition: Taking PO's Result Diagrams: 05/13/16 15:10 05/13/16 16:28 Additional Lab and Data: Lab Results 05/13/16 05/13/16 05/13/16 Range/Units 15:10 15:10 15:10 WBC 10.6 (3.5-10.8) 10^3/ul RBC 4.64 (4.0-5.4) 10^6/ul Hgb 13.6 (12.0-16.0) g/dl Hct 41 (35-47) % MCV 89 (80-97) fL MCH 29 (27-31) pg MCHC 33 (31-36) g/dl RDW 13 (10.5-15) % Plt Count 260 (150-450) 10^3/ul MPV 8 (7.4-10.4) um3 Neut % (Auto) 84.0 H (38-83) % Lymph % (Auto) 12.1 L (25-47) % [place] % (Auto) 2.7 (1-9) % Eos % (Auto) 0.7 (0-6) % Baso % (Auto) 0.5 (0-2) % Absolute Neuts (auto) 8.9 H (1.5-7.7) 10^3/ul Absolute Lymphs (auto) 1.3 (1.0-4.8) 10^3/ul Absolute Monos (auto) 0.3 (0-0.8) 10^3/ul Absolute Eos (auto) 0.1 (0-0.6) 10^3/ul Absolute Basos (auto) 0.1 (0-0.2) 10^3/ul Absolute Nucleated RBC 0 10^3/ul Nucleated RBC % 0 INR (Anticoag Therapy) 3.88 H (0.89-1.11) Sodium 138 (133-145) mmol/L Potassium TNP Chloride 101 (101-111) mmol/L Carbon Dioxide 27 (22-32) mmol/L Anion Gap TNP BUN 34 H (6-24) mg/dL Creatinine 1.69 H (0.51-0.95) mg/dL Est GFR ( Amer) 38.3 (>60) Est GFR (Non-Af Amer) 29.7 (>60) BUN/Creatinine Ratio 20.1 H (8-20) Glucose 132 H (70-100) mg/dL Lactic Acid (0.5-2.0) mmol/L Calcium 8.9 (8.6-10.3) mg/dL Total Bilirubin 0.50 (0.2-1.0) mg/dL AST TNP ALT 36 (7-52) U/L Alkaline Phosphatase 92 (34-104) U/L Troponin I 0.00 (<0.04) ng/mL Total Protein 6.6 (6.4-8.9) g/dL Albumin 3.7 (3.2-5.2) g/dL Globulin 2.9 (2-4) g/dL Albumin/Globulin Ratio 1.3 (1-3) 05/13/ Range/Units 15:10 WBC (3.5-10.8) 10^3/ul RBC (4.0-5.4) 10^6/ul Hgb (12.0-16.0) g/dl Hct (35-47) % MCV (80-97) fL MCH (27-31) pg MCHC (31-36) g/dl RDW (10.5-15) % Plt Count (150-450) 10^3/ul MPV (7.4-10.4) um3 Neut % (Auto) (38-83) % Lymph % (Auto) (25-47) % [place] % (Auto) (1-9) % Eos % (Auto) (0-6) % Baso % (Auto) (0-2) % Absolute Neuts (auto) (1.5-7.7) 10^3/ul Absolute Lymphs (auto) (1.0-4.8) 10^3/ul Absolute Monos (auto) (0-0.8) 10^3/ul Absolute Eos (auto) (0-0.6) 10^3/ul Absolute Basos (auto) (0-0.2) 10^3/ul Absolute Nucleated RBC 10^3/ul Nucleated RBC % INR (Anticoag Therapy) (0.89-1.11) Sodium (133-145) mmol/L Potassium Chloride (101-111) mmol/L Carbon Dioxide (22-32) mmol/L Anion Gap BUN (6-24) mg/dL Creatinine (0.51-0.95) mg/dL Est GFR ( Amer) (>60) Est GFR (Non-Af Amer) (>60) BUN/Creatinine Ratio (8-20) Glucose (70-100) mg/dL Lactic Acid 2.2 H* (0.5-2.0) mmol/L Calcium (8.6-10.3) mg/dL Total Bilirubin (0.2-1.0) mg/dL AST ALT (7-52) U/L Alkaline Phosphatase (34-104) U/L Troponin I (<0.04) ng/mL Total Protein (6.4-8.9) g/dL Albumin (3.2-5.2) g/dL Globulin (2-4) g/dL Albumin/Globulin Ratio (1-3) Assess/Plan/Problems-Billing Assessment: - Patient Problems (1) COPD exacerbation Code(s): J44.1 - CHRONIC OBSTRUCTIVE PULMONARY DISEASE W (ACUTE) EXACERBATION Comment: Failed outpatient treatment. Appreciate pulmonology consult. Continue Bevaspi, d/c Dulera and Spiriva. Continue Solu-medrol, prn O2, flutter valve. (2) Crohn's disease Code(s): K50.90 - CROHN'S DISEASE, UNSPECIFIED, WITHOUT COMPLICATIONS Comment : With ileostomy. Continue tincture of opium. (3) History of pulmonary embolism Code(s): Z86.711 - PERSONAL HISTORY OF PULMONARY EMBOLISM Comment: Continue home warfarin at reduced dose due to supratherapeutic INR. (4) CKD (chronic kidney disease), stage IV Code(s): N18.4 - CHRONIC KIDNEY DISEASE, STAGE 4 (SEVERE) Comment: Creatinine within baseline (5) Depression Code(s): F32.9 - MAJOR DEPRESSIVE DISORDER, SINGLE EPISODE, UNSPECIFIED Comment: Continue Paxil (6) DVT prophylaxis Code(s): GSG8862 - Comment: Warfarin (7) DNR (do not resuscitate) Status and Disposition: OBV to inpatient admit. Plan to d/c home when medically stable.
[2016-05-14] MEDS: FORMOTEROL INH SCH ×2 (14:09→21:54)
[2016-05-14] MEDS: GLYCOPYRROLATE INH SCH ×2 (14:09→21:54)
[2016-05-14] MEDS ORDERED: NS 0.9% 1000 ML* 1,000 ML IV SCH (14:45)
[2016-05-14] MEDS: Warfarin TAB(*) 1 MG PO SCH (16:40)
--- NOTE | 2016-05-14 17:52 | PN ---
Progress Note - Progress Note Note: Pulm consult f/u note 05/14/16. Pt seen and examined at bedside this am.Pt reported slight improvement in breathing and was also able to expectorate more phelghm. Active Medications Generic Name Dose Route Start Last Admin Trade Name Freq PRN Reason Stop Dose Admin Aspirin 81 mg 05/14/16 09:00 05/14/16 09:30 Aspirin Low Dose Tab* PO 81 mg QAM [facility] Administration Calcitriol 0.25 mcg 05/14/16 09:00 05/14/16 09:30 Rocaltrol Cap* PO 0.25 mcg QAM [facility] Administration Cinacalcet 30 mg 05/14/16 09:00 05/14/16 09:30 Sensipar Tab* PO 30 mg QAM [facility] Administration Guaifenesin 600 mg 05/13/16 17:55 Mucinex* PO BID PRN CONGESTION Sodium Chloride 1,000 mls @ 100 mls/hr 05/14/16 14:45 05/14/16 15:59 Ns 0.9% 1000 Ml* IV 05/15/16 00:44 100 mls/hr PER RATE [facility] Administration Levalbuterol HCl 1.25 mg 05/13/16 22:27 05/14/16 12:12 Xopenex 1.25 Mg/0.5 Ml Neb.Vesna* INH 1.25 mg Q6H PRN Administration SOB/WHEEZING Lorazepam 1 mg 05/13/16 18:05 05/13/16 23:32 Ativan Tab(*) PO 1 mg BEDTIME PRN Administration ANXIETY Lorazepam 0.25 mg 05/13/16 18:05 Ativan Tab(*) PO QAM PRN ANXIETY Lorazepam 1 mg 05/13/16 18:05 05/14/16 13:38 Ativan Tab(*) PO 1 mg Q4H PRN Administration ANXIETY Methylprednisolone Sodium Succinate 60 mg 05/13/16 18:00 05/14/16 17:31 Solu-Medrol* IV 60 mg Q12H [facility] Administration Morphine Sulfate 2.5 mg 05/14/16 08:57 Morphine Oral Concentrate* SL Q1H PRN SHORTNESS OF BREATH Bevespi Aerosphere 2 admin 05/14/16 13:04 05/14/16 14:09 Mdi INH 2 admin BID [facility] Administration Opium Tincture 6 mg 05/13/16 22:00 05/14/16 17:32 Opium Tincture* PO 6 mg Q4HR [facility] Administration Paroxetine HCl 20 mg 05/13/16 21:00 05/13/16 22:20 Paxil Tab* PO 20 mg BEDTIME [facility] Administration Pharmacy Profile Note 1 note 05/14/16 17:00 05/14/16 16:39 Coumadin Daily Reminder* FOLLOW UP Not Given 1700 [facility] Tiotropium [place] 1 cap 05/14/16 09:00 05/14/16 10:07 Spiriva Cap.Inh* INH Not Given DAILY [facility] Warfarin Sodium 1.5 mg 05/14/16 17:00 05/14/16 16:40 Coumadin Tab(*) PO Not Given DAILY@1700 [facility] Protocol Vital Signs Temp Pulse Resp BP Pulse Ox 98.0 F 73 16 116/42 96 05/14/16 15:26 05/14/16 15:26 05/14/16 17:32 05/14/16 15:26 05/14/16 15:26 O/E: Gen: Pt in bed in NAD HEENT: PERRLA, NO JVD Lungs: scaterred wheeze present CVS: S1, S2+ Abd: Soft, BS+ Ext: No edema Neuro: No focal defecits Laboratory Results - last 24 hr 05/14/16 06:03 INR (Anticoag Therapy) 3.81 H I/R: 70 y o f with h/o severe emphysema, O2 dependant, multiple comorbidities a/ f evaluationof worsening SOB, hypoxia being treated for acute COPD exacerbation Pt reprots improvement in SOB, cough C/w nebs Will d/c Spiriva, Symbicort Will initiate pt on Bevaspi c/w O2 supplementation Flutter valve with instructions on usage PT, OOB to chair as tolerated Pt has h/o lung nodule in RLL with interval increase in size, pt doesnot want to go through biopsy
[2016-05-14] MEDS: PARoxetine HCL TAB* 20 MG PO SCH (21:53)
[2016-05-14] MEDS: Acetaminophen TAB* 325 MG PO PRN (21:57)
[2016-05-15] MEDS: Opium Tincture* 6 MG/0.6 ML ORAL.LIQ SYRINGE PO SCH ×6 (01:48→22:26)
[2016-05-15] MEDS: LORazepam TAB(*) 1 MG PO PRN ×5 (01:48→21:13)
[2016-05-15] MEDS: methylPREDNISolone 125 MG* 2 ML VIAL IV SCH ×2 (06:11→18:36)
[2016-05-15] MEDS: guaiFENesin ER TAB 600 MG PO PRN (06:11)
[2016-05-15] MEDS: Tiotropium CAP.INH* CAP.INH/18 MCG (USE ORDER SET !) INH SCH (08:49)
[2016-05-15] MEDS: Cinacalcet TAB* 30 MG PO SCH (09:53)
[2016-05-15] MEDS: Calcitriol CAP* 0.25 MCG PO SCH (09:53)
[2016-05-15] MEDS: Aspirin Low Dose CHEW TAB* 81 MG PO SCH (09:54)
[2016-05-15] MEDS: GLYCOPYRROLATE INH SCH ×2 (09:56→21:14)
[2016-05-15] MEDS: FORMOTEROL INH SCH ×2 (09:56→21:14)
[2016-05-15] MEDS: Acetaminophen TAB* 325 MG PO PRN ×3 (10:20→22:26)
--- NOTE | 2016-05-15 14:54 | PN ---
Subjective Date of Service: 05/15/16 Interval History: Patient seen and examined at bedside. She reports mild improvement in her breathing but fatigues easily. She recognizes that this "most likely won't get better." She denies CP, abd pain, n/v. Her ileostomy output appears WNL. She has requested palliative care consult because she is interested in hospice or respite via hospice. Family History: Unchanged from Admission Social History: Unchanged from Admission Past Medical History: Unchanged from Admission Objective Active Medications: Acetaminophen (Tylenol Tab*) 650 mg PO Q4H PRN PRN Reason: FEVER/PAIN Last Admin: 05/15/16 10:20 Dose: 650 mg Aspirin ([facility]in Low Dose Tab*) [facility] [place] [facility] Last Admin: 05/15/16 09:54 Dose: 81 mg Calcitriol (Rocaltrol Cap*) [facility]cg [facility] [place] Last Admin: 05/15/16 09:53 Dose: 0.25 mcg Cinacalcet (Sensipar Tab*) [facility] [place] Last Admin: 05/15/16 09:53 Dose: 30 mg Guaifenesin (Mucinex*) 600 mg PO BID PRN PRN Reason: CONGESTION Last Admin: 05/15/16 06:11 Dose: 600 mg Levalbuterol HCl (Xopenex 1.25 Mg/0.5 Ml Neb.Vesna*) 1.25 mg INH Q6H PRN PRN Reason: SOB/WHEEZING Last Admin: 05/14/16 22:56 Dose: 1.25 mg Lorazepam (Ativan Tab(*)) 1 mg PO BEDTIME PRN PRN Reason: ANXIETY Last Admin: 05/14/16 21:53 Dose: 1 mg Lorazepam (Ativan Tab(*)) 0.25 mg PO QAM PRN PRN Reason: ANXIETY Lorazepam (Ativan Tab(*)) 1 mg PO Q4H PRN PRN Reason: ANXIETY Last Admin: 05/15/16 10:11 Dose: 1 mg Methylprednisolone Sodium Succinate (Solu-Medrol*) 60 mg IV Q12H [facility] Last Admin: 05/15/16 06:11 Dose: 60 mg Morphine Sulfate (Morphine Oral Concentrate*) 2.5 mg SL Q1H PRN PRN Reason: SHORTNESS OF BREATH Bevespi Aerosphere (Mdi) 2 admin INH BID [facility] Last Admin: 05/15/16 09:56 Dose: 2 admin Opium Tincture (Opium Tincture*) 6 mg PO Q4HR [facility] Last Admin: 05/15/16 09:54 Dose: 6 mg Paroxetine HCl (Paxil Tab*) 20 mg PO BEDTIME [facility] Last Admin: 05/14/16 21:53 Dose: 20 mg Pharmacy Profile Note (Coumadin Daily Reminder*) 1 note FOLLOW UP 1700 [facility] Last Admin: 05/14/16 16:39 Dose: Not Given Tiotropium [place] (Spiriva Cap.Inh*) 1 cap INH DAILY [facility] Last Admin: 05/15/16 08:49 Dose: 1 cap Warfarin Sodium (Coumadin Tab(*)) 1.5 mg PO DAILY@1700 [facility] PRN Reason: Protocol Last Admin: 05/14/16 16:40 Dose: Not Given Vital Signs 05/14/16 05/14/16 05/14/16 17:32 17:51 19:40 Temperature 98.2 F Pulse Rate 82 Respiratory 16 16 16 Rate Blood Pressure 123/58 (mmHg) O2 Sat by Pulse 95 Oximetry 05/14/16 05/14/16 05/14/16 19:51 20:00 20:15 Temperature Pulse Rate Respiratory 16 18 16 Rate Blood Pressure (mmHg) O2 Sat by Pulse Oximetry 05/14/16 05/14/16 05/14/16 21:53 22:57 23:28 Temperature 98.3 F Pulse Rate 82 88 Respiratory 20 16 17 Rate Blood Pressure 113/35 (mmHg) O2 Sat by Pulse 95 97 Oximetry 05/14/16 05/15/16 05/15/16 23:53 01:48 03:30 Temperature 98.0 F Pulse Rate 61 Respiratory 16 18 17 Rate Blood Pressure 126/54 (mmHg) O2 Sat by Pulse 99 Oximetry 05/15/16 05/15/16 05/15/16 03:48 06:11 07:10 Temperature 98.1 F Pulse Rate 56 Respiratory 17 18 18 Rate Blood Pressure 115/53 (mmHg) O2 Sat by Pulse 100 Oximetry 05/15/16 05/15/16 05/15/16 08:11 09:54 10:00 Temperature Pulse Rate Respiratory 20 20 18 Rate Blood Pressure (mmHg) O2 Sat by Pulse Oximetry 05/15/16 05/15/16 10:11 11:58 Temperature 98.2 F Pulse Rate 64 Respiratory 18 16 Rate Blood Pressure 137/56 (mmHg) O2 Sat by Pulse 97 Oximetry Oxygen Devices in Use Now: Nasal Cannula - 2-3Lnc Appearance: Female patient, lying in bed, in NAD Eyes: PERRLA Ears/Nose/Mouth/Throat: Clear Oropharnyx, Mucous Membranes Moist Neck: NL Appearance and Movements; NL JVP Respiratory: Symmetrical Chest Expansion and Respiratory Effort, - - diminished , scattered wheezing Cardiovascular: RRR Abdominal: NL Sounds; No Tenderness; No Distention, - - ileostomy Extremities: No Edema Skin: No Rash or Ulcers Neurological: Alert and Oriented x 3 Lines/Tubes/Other Access: Clean, Dry and Intact Peripheral IV Nutrition: Taking PO's Result Diagrams: 05/13/16 15:10 05/13/16 16:28 Additional Lab and Data: Lab Results 05/13/16 05/13/16 05/13/16 Range/Units 15:10 15:10 15:10 WBC 10.6 (3.5-10.8) 10^3/ul RBC 4.64 (4.0-5.4) 10^6/ul Hgb 13.6 (12.0-16.0) g/dl Hct 41 (35-47) % MCV 89 (80-97) fL MCH 29 (27-31) pg MCHC 33 (31-36) g/dl RDW 13 (10.5-15) % Plt Count 260 (150-450) 10^3/ul MPV 8 (7.4-10.4) um3 Neut % (Auto) 84.0 H (38-83) % Lymph % (Auto) 12.1 L (25-47) % [place] % (Auto) 2.7 (1-9) % Eos % (Auto) 0.7 (0-6) % Baso % (Auto) 0.5 (0-2) % Absolute Neuts (auto) 8.9 H (1.5-7.7) 10^3/ul Absolute Lymphs (auto) 1.3 (1.0-4.8) 10^3/ul Absolute Monos (auto) 0.3 (0-0.8) 10^3/ul Absolute Eos (auto) 0.1 (0-0.6) 10^3/ul Absolute Basos (auto) 0.1 (0-0.2) 10^3/ul Absolute Nucleated RBC 0 10^3/ul Nucleated RBC % 0 INR (Anticoag Therapy) 3.88 H (0.89-1.11) Sodium 138 (133-145) mmol/L Potassium TNP Chloride 101 (101-111) mmol/L Carbon Dioxide 27 (22-32) mmol/L Anion Gap TNP BUN 34 H (6-24) mg/dL Creatinine 1.69 H (0.51-0.95) mg/dL Est GFR ( Amer) 38.3 (>60) Est GFR (Non-Af Amer) 29.7 (>60) BUN/Creatinine Ratio 20.1 H (8-20) Glucose 132 H (70-100) mg/dL Lactic Acid (0.5-2.0) mmol/L Calcium 8.9 (8.6-10.3) mg/dL Total Bilirubin 0.50 (0.2-1.0) mg/dL AST TNP ALT 36 (7-52) U/L Alkaline Phosphatase 92 (34-104) U/L Troponin I 0.00 (<0.04) ng/mL Total Protein 6.6 (6.4-8.9) g/dL Albumin 3.7 (3.2-5.2) g/dL Globulin 2.9 (2-4) g/dL Albumin/Globulin Ratio 1.3 (1-3) /20/17 Range/Units 15:10 WBC (3.5-10.8) 10^3/ul RBC (4.0-5.4) 10^6/ul Hgb (12.0-16.0) g/dl Hct (35-47) % MCV (80-97) fL MCH (27-31) pg MCHC (31-36) g/dl RDW (10.5-15) % Plt Count (150-450) 10^3/ul MPV (7.4-10.4) um3 Neut % (Auto) (38-83) % Lymph % (Auto) (25-47) % [place] % (Auto) (1-9) % Eos % (Auto) (0-6) % Baso % (Auto) (0-2) % Absolute Neuts (auto) (1.5-7.7) 10^3/ul Absolute Lymphs (auto) (1.0-4.8) 10^3/ul Absolute Monos (auto) (0-0.8) 10^3/ul Absolute Eos (auto) (0-0.6) 10^3/ul Absolute Basos (auto) (0-0.2) 10^3/ul Absolute Nucleated RBC 10^3/ul Nucleated RBC % INR (Anticoag Therapy) (0.89-1.11) Sodium (133-145) mmol/L Potassium Chloride (101-111) mmol/L Carbon Dioxide (22-32) mmol/L Anion Gap BUN (6-24) mg/dL Creatinine (0.51-0.95) mg/dL Est GFR ( Amer) (>60) Est GFR (Non-Af Amer) (>60) BUN/Creatinine Ratio (8-20) Glucose (70-100) mg/dL Lactic Acid 2.2 H* (0.5-2.0) mmol/L Calcium (8.6-10.3) mg/dL Total Bilirubin (0.2-1.0) mg/dL AST ALT (7-52) U/L Alkaline Phosphatase (34-104) U/L Troponin I (<0.04) ng/mL Total Protein (6.4-8.9) g/dL Albumin (3.2-5.2) g/dL Globulin (2-4) g/dL Albumin/Globulin Ratio (1-3) Assess/Plan/Problems-Billing Assessment: - Patient Problems (1) COPD exacerbation Code(s): J44.1 - CHRONIC OBSTRUCTIVE PULMONARY DISEASE W (ACUTE) EXACERBATION Comment: Failed outpatient treatment. Appreciate pulmonology consult. Continue Bevaspi, d/c Dulera and Spiriva. Continue Solu-medrol, prn O2, flutter valve. Palliative care consult for advanced disease process (2) Crohn's disease Code(s): K50.90 - CROHN'S DISEASE, UNSPECIFIED, WITHOUT COMPLICATIONS Comment : With ileostomy. Continue tincture of opium. (3) History of pulmonary embolism Code(s): Z86.711 - PERSONAL HISTORY OF PULMONARY EMBOLISM Comment: Continue home warfarin at reduced dose due to supratherapeutic INR. Hold today's dose due to supratherapeutic INR, and allow INR to drift down. Daily INR (4) CKD (chronic kidney disease), stage IV Code(s): N18.4 - CHRONIC KIDNEY DISEASE, STAGE 4 (SEVERE) Comment: Creatinine within baseline (5) Depression Code(s): F32.9 - MAJOR DEPRESSIVE DISORDER, SINGLE EPISODE, UNSPECIFIED Comment: Continue Paxil (6) DVT prophylaxis Code(s): TIB5751 - Comment: Warfarin - hold today's dose due to supratherapeutic INR (7) DNR (do not resuscitate) Status and Disposition: Inpatient admit. Palliative care consult placed in order to guide discharge plan.
[2016-05-15] MEDS: Warfarin TAB(*) 1 MG PO SCH (15:27)
[2016-05-15] MEDS: NS 0.9% 1000 ML* 1,000 ML IV SCH (18:39)
--- NOTE | 2016-05-15 20:28 | PN ---
Progress Note - Progress Note Note: Pulm consult f/u note 05/15/16. Pt seen and examined at bedside this am.Pt reported slight improvement in breathing. is getting winded with minimal exertion. Active Medications Generic Name Dose Route Start Last Admin Trade Name Freq PRN Reason Stop Dose Admin Acetaminophen 650 mg 05/14/16 20:48 05/15/16 15:23 Tylenol Tab* PO 650 mg Q4H PRN Administration FEVER/PAIN Aspirin 81 mg 05/14/16 09:00 05/15/16 09:54 Aspirin Low Dose Tab* PO 81 mg QAM [facility] Administration Calcitriol 0.25 mcg 05/14/16 09:00 05/15/16 09:53 Rocaltrol Cap* PO 0.25 mcg QAM [facility] Administration Cinacalcet 30 mg 05/14/16 09:00 05/15/16 09:53 Sensipar Tab* PO 30 mg QAM [facility] Administration Guaifenesin 600 mg 05/13/16 17:55 05/15/16 06:11 Mucinex* PO 600 mg BID PRN Administration CONGESTION Sodium Chloride 1,000 mls @ 75 mls/hr 05/15/16 17:30 05/15/16 18:39 Ns 0.9% 1000 Ml* IV 75 mls/hr PER RATE [facility] Administration Levalbuterol HCl 1.25 mg 05/13/16 22:27 05/14/16 22:56 Xopenex 1.25 Mg/0.5 Ml Neb.Vesna* INH 1.25 mg Q6H PRN Administration SOB/WHEEZING Lorazepam 1 mg 05/13/16 18:05 05/14/16 21:53 Ativan Tab(*) PO 1 mg BEDTIME PRN Administration ANXIETY Lorazepam 0.25 mg 05/13/16 18:05 Ativan Tab(*) PO QAM PRN ANXIETY Lorazepam 1 mg 05/13/16 18:05 05/15/16 15:17 Ativan Tab(*) PO 1 mg Q4H PRN Administration ANXIETY Methylprednisolone Sodium Succinate 60 mg 05/13/16 18:00 05/15/16 18:36 Solu-Medrol* IV 60 mg Q12H [facility] Administration Morphine Sulfate 2.5 mg 05/14/16 08:57 Morphine Oral Concentrate* SL Q1H PRN SHORTNESS OF BREATH Bevespi Aerosphere 2 admin 05/14/16 13:04 05/15/16 09:56 Mdi INH 2 admin BID [facility] Administration Opium Tincture 6 mg 05/13/16 22:00 05/15/16 18:35 Opium Tincture* PO 6 mg Q4HR [facility] Administration Paroxetine HCl 20 mg 05/13/16 21:00 05/14/16 21:53 Paxil Tab* PO 20 mg BEDTIME [facility] Administration Pharmacy Profile Note 1 note 05/14/16 17:00 05/15/16 15:26 Coumadin Daily Reminder* FOLLOW UP Not Given 1700 [facility] Tiotropium [place] 1 cap 05/14/16 09:00 05/15/16 08:49 Spiriva Cap.Inh* INH 1 cap DAILY [facility] Administration Warfarin Sodium 1.5 mg 05/14/16 17:00 05/15/16 15:27 Coumadin Tab(*) PO Not Given DAILY@1700 [facility] Protocol Vital Signs Temp Pulse Resp BP Pulse Ox 97.6 F 73 18 110/42 97 05/15/16 15:21 05/15/16 15:21 05/15/16 18:35 05/15/16 15:21 05/15/16 15:21 O/E: Gen: Pt in bed in NAD HEENT: PERRLA, NO JVD Lungs: scaterred wheeze present CVS: S1, S2+ Abd: Soft, BS+ Ext: No edema Neuro: No focal defecits Laboratory Results - last 24 hr 05/15/16 08:44 INR (Anticoag Therapy) 3.74 H I/R: 70 y o f with h/o severe emphysema, O2 dependant, multiple comorbidities a/ f evaluationof worsening SOB, hypoxia being treated for acute COPD exacerbation Pt reprots improvement in SOB, cough C/w nebs c/w Bevaspi c/w O2 supplementation Flutter valve with instructions on usage PT, OOB to chair as tolerated Pt has h/o lung nodule in RLL with interval increase in size, pt doesnot want to go through biopsy Recommend palliative care
[2016-05-15] MEDS: PARoxetine HCL TAB* 20 MG PO SCH (21:13)
--- NOTE | 2016-05-16 00:29 | CONS ---
PALLIATIVE CARE CONSULT REPORT: DATE OF CONSULT: 05/15/16 PRIMARY CARE PHYSICIAN: Suzette France MD REQUESTING PROVIDER FOR CONSULT: Sarah Sanchez NP REASON FOR CONSULT: Evaluation for hospice. HOSPITAL COURSE: This is a 70-year-old female with a past medical history of COPD, on 3 to 4 L at home; history of lung cancer, status post chemotherapy; Crohn's disease, with ileostomy with recurrent dehydration and infection, who presented to the emergency room on the with shortness of breath and cough. The patient states that she was only using oxygen at bedtime up until above 2- 1/2 weeks ago and then at that time it came on abruptly where she needed oxygen regularly. She has been followed by Dr. Zuniga as an outpatient, as she also was in the emergency room on the , for shortness of breath at that time. She was started on steroids few days after that, but showed no improvement in her symptoms. On arrival to the emergency room, the patient was admitted for COPD exacerbation and decline over the past month or so. The patient states she has lost about 13 pounds over the past few months. She is still complaining of shortness of breath and she has a significant amount of back pain , currently pain-free as long as she does not move, she states. The patient was also seen by Dr. Zuniga in consultation, who agreed that this was COPD exacerbation secondary to viral bronchitis, started on IV steroids and bronchodilators. Dr. Zuniga feels that patient has severe emphysema. Also, of note, she has a history of right lower lobe lung nodule with interval increase in size. The patient has been followed by oncologist at [place] and had lung cancer in the past that was treated with chemotherapy. She states her oncologist in [place] is not worried about this lung nodule have gotten much bigger and she has no interest in pursuing further evaluation for this. The patient states back in 2011, she was enrolled in [facility] when she had a thoracic compression fracture, it was felt that she had bone cancer, and was discharged to [facility] at that time. Since her Crohn's back in 2010, she became critically ill with an ileostomy, has had recurrent episodes of dehydration and recurrent infections of her port. She has no port placement at this time, but battles with recurrent dehydration suffered with chronic kidney disease as a result of this. Otherwise, remaining review of systems is negative. The patient states that she would like to have more resources at home. She refuses go to rehab. She refuses go to a shelter. She lives at home with her , who works and states that she needs more assistance during the day at home. We discussed her eligibility for hospice that she is a candidate with her end-stage COPD, but it only provides an hour per day. She states that whatever resources will give her more help at home, whether be VNS or hospice services, she is agreeable to. PAST MEDICAL HISTORY: 1. COPD, on 3 to 4 L continuous oxygen. 2. History of lung cancer and question of recurrent lung cancer at this time, status post chemotherapy, followed by oncologist at [facility]. 3. CKD, stage 3. 4. History of Crohn's disease, status post ileostomy. 5. DVT and PE, on Coumadin. 6. Restless legs syndrome. 7. Anxiety. 8. Depression. MEDICATIONS: 1. Tylenol 650 mg every 4 hours as needed. 2. Aspirin 81 mg daily. 3. Calcitriol 0.25 mcg daily in the morning. 4. Cinacalcet 30 mg in the morning. 5. Lorazepam 1 mg at bedtime. 6. Lorazepam 0.25 mg in the morning as needed. 7. Lorazepam 1 mg every 4 hours as needed. 8. Levalbuterol 1.25 mg every 6 hours as needed. 9. Morphine 2.5 mg sublingual every hour as needed and normal saline 1 L. 10. Bevespi inhaled twice a day. 11. Opium tincture 6 mg every 4 hours. 12. Paroxetine 20 mg at bedtime. 13. Spiriva daily. 14. Warfarin 1.5 mg daily. 15. Guaifenesin ER 600 mg p.o. b.i.d. as needed. 16. Solu-Medrol 60 mg IV q.12. ALLERGIES: VANCOMYCIN, wheezing; DAPTOMYCIN; DOXYCYCLINE; LEVOFLOXACIN; EPINEPHRINE; INFLIXIMAB; TETANUS TOXOID; EGGPLANT. FAMILY HISTORY: Father from heart disease. SOCIAL HISTORY: The patient lives at home with her , Nikki Desir, who is her healthcare proxy. The patient has been a heavy smoker, she did quit 3 weeks ago. She does use marijuana on regular basis for her anxiety. No alcohol use. Her MOLST form is a DNR/DNI. REVIEW OF SYSTEMS: As mentioned in the HPI. PHYSICAL EXAM: Vitals: Temp 97.6, pulse rate 73, respiratory rate 18, oxygen saturation 97% on 2 L nasal cannula. General: Frail, elderly female, in no acute distress. HEENT: Neck supple. No lymphadenopathy. Pupils are equal and reactive, anicteric. Head: Normocephalic. Oropharynx, mucous membranes moist. No erythema or exudate. Cardiac: Regular rate and rhythm. No murmur, rubs, or gallops. Respiratory: Diminished breath sounds. Prolonged expiratory phase. No wheezes, rhonchi, or rales. Abdomen: Soft, nontender, nondistended. Extremities: No clubbing, cyanosis, or edema. +1 DPs. Neurological: Alert and oriented x3. No focal neurologic deficits. DIAGNOSTIC STUDIES/LAB DATA: White count 10.6, hemoglobin 13.6, hematocrit 41, platelets 260. INR is 3.74. Sodium 138, potassium 4.4, chloride 101, bicarb 27 , BUN 34, creatinine 1.69, glucose 132, lactic acid 2.2. Chest x-ray on admission shows right upper lobe postradiation pneumonitis and/ or fibrosis, findings are not significantly changed since November 2015. ASSESSMENT AND PLAN: This is a 70-year-old female with a past medical history of end-stage chronic obstructive pulmonary disease with history of lung cancer with suggestion of an enlarging nodule, who presents to the emergency room and admitted for chronic obstructive pulmonary disease exacerbation. The patient and the family were interested in palliative care. Dr. Zuniga states the patient has severe emphysema, end-stage chronic obstructive pulmonary disease, which makes her eligible for hospice. The patient is refusing to go to any fdc facility and would like to be enrolled at home with hospice services, which I think is appropriate for her for her end-stage chronic obstructive pulmonary disease. The patient is adequately controlled with her pain and her breathing at this time. I would recommend increasing her morphine as air hunger becomes more of an issue. Thank you for this consultation. I will follow along with you. PATIENT TIME: Greater than 60 minutes was spent doing this consultation, more than half the time spent in direct patient contact. CC: Suzette France MD* [id number]/[facility] #: [id number] ANI
[2016-05-16] MEDS: Levalbuterol 1.25MG/0.5ML NEB INH PRN ×3 (00:57→18:13)
[2016-05-16] MEDS: LORazepam TAB(*) 1 MG PO PRN ×5 (00:57→22:27)
[2016-05-16] MEDS: Opium Tincture* 6 MG/0.6 ML ORAL.LIQ SYRINGE PO SCH ×6 (01:53→22:28)
[2016-05-16] MEDS: methylPREDNISolone 125 MG* 2 ML VIAL IV SCH ×2 (06:02→18:11)
[2016-05-16] MEDS: Calcitriol CAP* 0.25 MCG PO SCH (08:35)
[2016-05-16] MEDS: guaiFENesin ER TAB 600 MG PO PRN ×2 (08:35→20:27)
[2016-05-16] MEDS: Aspirin Low Dose CHEW TAB* 81 MG PO SCH (08:35)
[2016-05-16] MEDS: Cinacalcet TAB* 30 MG PO SCH (08:35)
[2016-05-16] MEDS: Tiotropium CAP.INH* CAP.INH/18 MCG (USE ORDER SET !) INH SCH (08:57)
[2016-05-16] MEDS: FORMOTEROL INH SCH ×2 (09:01→22:28)
[2016-05-16] MEDS: GLYCOPYRROLATE INH SCH ×2 (09:01→22:28)
[2016-05-16] MEDS: Acetaminophen TAB* 325 MG PO PRN ×2 (09:09→20:26)
[2016-05-16] MEDS: NS 0.9% 1000 ML* 1,000 ML IV SCH (14:13)
[2016-05-16] MEDS: Warfarin TAB(*) 1 MG PO SCH (17:15)
--- NOTE | 2016-05-16 18:31 | PN ---
Progress Note - Progress Note Note: Pulm consult f/u note 05/16/16. Pt seen and examined at bedside this am.Pt reported worse breathing and dry cough today. is getting winded with minimal exertion. Active Medications Generic Name Dose Route Start Last Admin Trade Name Freq PRN Reason Stop Dose Admin Acetaminophen 650 mg 05/14/16 20:48 05/16/16 09:09 Tylenol Tab* PO 650 mg Q4H PRN Administration FEVER/PAIN Aspirin 81 mg 05/14/16 09:00 05/16/16 08:35 Aspirin Low Dose Tab* PO 81 mg QAM HANK Administration Calcitriol 0.25 mcg 05/14/16 09:00 05/16/16 08:35 Rocaltrol Cap* PO 0.25 mcg QAM HANK Administration Cinacalcet 30 mg 05/14/16 09:00 05/16/16 08:35 Sensipar Tab* PO 30 mg QAM HANK Administration Guaifenesin 600 mg 05/13/16 17:55 05/16/16 08:35 Mucinex* PO 600 mg BID PRN Administration CONGESTION Sodium Chloride 1,000 mls @ 75 mls/hr 05/15/16 17:30 05/16/16 14:13 Ns 0.9% 1000 Ml* IV 75 mls/hr PER RATE HANK Administration Levalbuterol HCl 1.25 mg 05/13/16 22:27 05/16/16 18:13 Xopenex 1.25 Mg/0.5 Ml Neb.Vesna* INH 1.25 mg Q6H PRN Administration SOB/WHEEZING Lorazepam 1 mg 05/13/16 18:05 05/15/16 21:13 Ativan Tab(*) PO 1 mg BEDTIME PRN Administration ANXIETY Lorazepam 0.25 mg 05/13/16 18:05 Ativan Tab(*) PO QAM PRN ANXIETY Lorazepam 1 mg 05/13/16 18:05 05/16/16 18:19 Ativan Tab(*) PO 1 mg Q4H PRN Administration ANXIETY Methylprednisolone Sodium Succinate 60 mg 05/13/16 18:00 05/16/16 18:11 Solu-Medrol* IV 60 mg Q12H HANK Administration Morphine Sulfate 2.5 mg 05/14/16 08:57 Morphine Oral Concentrate* SL Q1H PRN SHORTNESS OF BREATH Bevespi Aerosphere 2 admin 05/14/16 13:04 05/16/16 09:01 Mdi INH 2 admin BID HANK Administration Opium Tincture 6 mg 05/13/16 22:00 05/16/16 18:11 Opium Tincture* PO 6 mg Q4HR HANK Administration Paroxetine HCl 20 mg 05/13/16 21:00 05/15/16 21:13 Paxil Tab* PO 20 mg BEDTIME HANK Administration Pharmacy Profile Note 1 note 05/14/16 17:00 05/16/16 17:15 Coumadin Daily Reminder* FOLLOW UP Not Given 1700 HANK Tiotropium [place] 1 cap 05/14/16 09:00 05/16/16 08:57 Spiriva Cap.Inh* INH 1 cap DAILY HANK Administration Warfarin Sodium 1.5 mg 05/14/16 17:00 05/16/16 17:15 Coumadin Tab(*) PO Not Given DAILY@1700 HANK Protocol Vital Signs Temp Pulse Resp BP Pulse Ox 97.7 F 73 18 122/49 96 05/16/16 11:33 05/16/16 18:14 05/16/16 18:19 05/16/16 15:32 05/16/16 18:14 O/E: Gen: Pt in bed in NAD HEENT: PERRLA, NO JVD Lungs: scaterred wheeze present CVS: S1, S2+ Abd: Soft, BS+ Ext: No edema Neuro: No focal defecits Laboratory Results - last 24 hr 05/16/16 07:05 INR (Anticoag Therapy) 3.31 H I/R: 70 y o f with h/o severe emphysema, O2 dependant, multiple comorbidities a/ f evaluationof worsening SOB, hypoxia being treated for acute COPD exacerbation Pt reports worsening SOB, cough today Reports that she didnot receive her nebs today Discussed with RT, pt to get nebs Will change orer to standing c/w Bevaspi c/w O2 supplementation Flutter valve with instructions on usage PT, OOB to chair as tolerated Pt has h/o lung nodule in RLL with interval increase in size, pt doesnot want to go through biopsy palliative care evaluation noted
--- NOTE | 2016-05-16 18:41 | PN ---
Subjective Date of Service: 05/16/16 Interval History: Patient seen and examined at bedside. Denies fever, chills, chest discomfort, N/ V/D. Pt reports that he ostomy output is at her baseline and thicker than normal. Reports shortness of breath and dry non-productive cough. Reports feeling more anxious and a tremor around her steroids and albuterol. Pt states that steroids often make her "manic". Pt would like to continue IV fluids for now. Family History: Unchanged from Admission Social History: Unchanged from Admission Past Medical History: Unchanged from Admission Objective Active Medications: Acetaminophen (Tylenol Tab*) 650 mg PO Q4H PRN Reason: FEVER/PAIN Albuterol/Ipratropium (Duoneb (Albuterol 2.5 Mg/Ipratropium 0.5 Mg)) 1 neb INH [id number] AWAKE [facility] Aspirin (Aspirin Low Dose Tab*) 81 mg PO QAM [facility] Calcitriol (Rocaltrol Cap*) 0.25 mcg PO QAM [facility] Cinacalcet (Sensipar Tab*) 30 mg PO QAM [facility] Guaifenesin (Mucinex*) 600 mg PO BID PRN Reason: CONGESTION Sodium Chloride (Ns 0.9% 1000 Ml*) 1,000 mls @ 75 mls/hr IV PER RATE [facility] Lorazepam (Ativan Tab(*)) 1 mg PO BEDTIME PRN Reason: ANXIETY Lorazepam (Ativan Tab(*)) 0.25 mg PO QAM PRN Reason: ANXIETY Lorazepam (Ativan Tab(*)) 1 mg PO Q4H PRN Reason: ANXIETY Methylprednisolone Sodium Succinate (Solu-Medrol*) 60 mg IV Q12H [facility] Morphine Sulfate (Morphine Oral Concentrate*) 2.5 mg SL Q1H PRN Reason: SHORTNESS OF BREATH Bevespi Aerosphere (Mdi) 2 admin INH BID [facility] Opium Tincture (Opium Tincture*) 6 mg PO Q4HR [facility] Paroxetine HCl (Paxil Tab*) 20 mg PO BEDTIME [facility] Pharmacy Profile Note (Coumadin Daily Reminder*) 1 note FOLLOW UP 1700 [facility] Tiotropium [place] (Spiriva Cap.Inh*) 1 cap INH DAILY [facility] Warfarin Sodium (Coumadin Tab(*)) 1.5 mg PO DAILY@1700 [facility] Reason: Protocol Vital Signs 05/15/16 05/15/16 05/15/16 20:03 21:13 22:26 Temperature 98.0 F Pulse Rate 76 Respiratory 16 20 18 Rate Blood Pressure 116/49 (mmHg) O2 Sat by Pulse 95 Oximetry 05/15/16 05/15/16 05/15/16 22:47 23:13 23:38 Temperature 98.0 F Pulse Rate 74 Respiratory 20 18 21 Rate Blood Pressure 135/47 (mmHg) O2 Sat by Pulse 94 Oximetry 05/16/16 05/16/16 05/16/16 02:57 03:39 03:53 Temperature 97.9 F Pulse Rate 75 Respiratory 18 20 18 Rate Blood Pressure 136/52 (mmHg) O2 Sat by Pulse 97 Oximetry 05/16/16 05/16/16 05/16/16 06:02 07:24 08:02 Temperature 97.8 F Pulse Rate 79 Respiratory 18 18 16 Rate Blood Pressure 123/60 (mmHg) O2 Sat by Pulse 99 Oximetry 05/16/16 05/16/16 05/16/16 10:36 11:33 14:10 Temperature 97.7 F Pulse Rate 66 Respiratory 20 16 16 Rate Blood Pressure 111/45 (mmHg) O2 Sat by Pulse 98 Oximetry 05/16/16 05/16/16 05/16/16 15:32 16:10 18:11 Temperature Pulse Rate 70 Respiratory 18 20 16 Rate Blood Pressure 122/49 (mmHg) O2 Sat by Pulse 96 Oximetry 05/16/16 05/16/16 18:14 18:19 Temperature Pulse Rate 73 Respiratory 24 18 Rate Blood Pressure (mmHg) O2 Sat by Pulse 96 Oximetry Oxygen Devices in Use Now: Nasal Cannula - 3L Appearance: NAD, sitting up in bed Eyes: No Scleral Icterus, PERRLA Respiratory: Symmetrical Chest Expansion and Respiratory Effort, - - Bilateral rhonchi that clear with cough Cardiovascular: NL Sounds; No Murmurs; No JVD, RRR Extremities: No Edema Neurological: Alert and Oriented x 3, NL Muscle Strength and Tone Lines/Tubes/Other Access: Clean, Dry and Intact Peripheral IV - site benign Nutrition: Taking PO's Result Diagrams: 05/13/16 15:10 05/13/16 16:28 Additional Lab and Data: Assess/Plan/Problems-Billing Assessment: Ms. Beckwith is a 70 yo female with PMH significant for COPD on home O2, with lung malignancy, Crohn disease, CKD stage 3 who presented to the hospital with worsening shortness of breath. - Patient Problems (1) COPD exacerbation Code(s): J44.1 - CHRONIC OBSTRUCTIVE PULMONARY DISEASE W (ACUTE) EXACERBATION SNOMED Code(s): 906878817 Comment: - Failed outpatient treatment. Appreciate pulmonology consult. - Continue Bevaspi, d/c Dulera and Spiriva. - Continue prn O2, flutter valve. - Palliative care consult for advanced disease process - Will change Solu-medrol to Prednisone in the morning (2) Crohn's disease Code(s): K50.90 - CROHN'S DISEASE, UNSPECIFIED, WITHOUT COMPLICATIONS SNOMED Code(s): 79408132 Comment: - With ileostomy. - Continue tincture of opium. (3) History of pulmonary embolism Code(s): Z86.711 - PERSONAL HISTORY OF PULMONARY EMBOLISM SNOMED Code(s): 979655571 Comment: - Continue home warfarin at reduced dose due to supratherapeutic INR. - Hold today's dose due to supratherapeutic INR, and allow INR to drift down. - Daily INR (4) CKD (chronic kidney disease), stage IV Code(s): N18.4 - CHRONIC KIDNEY DISEASE, STAGE 4 (SEVERE) SNOMED Code(s): 431679337 Comment: - Creatinine within baseline (5) Depression Code(s): F32.9 - MAJOR DEPRESSIVE DISORDER, SINGLE EPISODE, UNSPECIFIED SNOMED Code(s): 66570851 Comment: - Continue Paxil (6) DVT prophylaxis Code(s): FMO2271 - SNOMED Code(s): 496633605 Comment: - Warfarin - hold today's dose due to supratherapeutic INR (7) DNR (do not resuscitate) Status and Disposition: Inpatient admit. Palliative care consult to guide discharge plan.
[2016-05-16] MEDS: Albuterol/Ipratropium NEB.SOL* Albuterol 2.5 MG/Ipratropium 0.5 MG 3 ML INH SCH ×2 (18:43→23:18)
[2016-05-16] MEDS: PARoxetine HCL TAB* 20 MG PO SCH (22:27)
[2016-05-16] MEDS: Artificial Tears* 15 ML BTL BOTH EYES PRN (22:29)
[2016-05-17] MEDS: Acetaminophen TAB* 325 MG PO PRN ×2 (00:41→22:25)
[2016-05-17] MEDS: Opium Tincture* 6 MG/0.6 ML ORAL.LIQ SYRINGE PO SCH ×6 (02:46→22:10)
[2016-05-17] MEDS: LORazepam TAB(*) 1 MG PO PRN ×4 (02:55→22:09)
[2016-05-17] MEDS: Albuterol/Ipratropium NEB.SOL* Albuterol 2.5 MG/Ipratropium 0.5 MG 3 ML INH SCH ×6 (03:28→21:39)
[2016-05-17] MEDS: NS 0.9% 1000 ML* 1,000 ML IV SCH (06:25)
[2016-05-17] MEDS: FORMOTEROL INH SCH ×2 (08:01→22:27)
[2016-05-17] MEDS: GLYCOPYRROLATE INH SCH ×2 (08:01→22:27)
[2016-05-17] MEDS: Aspirin Low Dose CHEW TAB* 81 MG PO SCH (08:02)
[2016-05-17] MEDS: Cinacalcet TAB* 30 MG PO SCH (08:02)
[2016-05-17] MEDS: predniSONE TAB* 20 MG PO SCH (08:02)
[2016-05-17] MEDS: Calcitriol CAP* 0.25 MCG PO SCH (08:02)
--- NOTE | 2016-05-17 14:01 | PN ---
Progress Note - Progress Note Note: Pulm consult f/u note 05/17/16. Pt seen and examined at bedside this am.Pt reported worse breathing and dry cough today. is getting winded with minimal exertion. Active Medications Generic Name Dose Route Start Last Admin Trade Name Freq PRN Reason Stop Dose Admin Acetaminophen 650 mg 05/14/16 20:48 05/17/16 00:41 Tylenol Tab* PO 650 mg Q4H PRN Administration FEVER/PAIN Albuterol/Ipratropium 1 neb 05/16/16 19:00 05/17/16 12:56 Duoneb (Albuterol 2.5 Mg/Ipratropium 0.5 Mg) INH 1 neb [id number] AWAKE HANK Administration Aspirin 81 mg 05/14/16 09:00 05/17/16 08:02 Aspirin Low Dose Tab* PO 81 mg QAM HANK Administration Calcitriol 0.25 mcg 05/14/16 09:00 05/17/16 08:02 Rocaltrol Cap* PO 0.25 mcg QAM HANK Administration Cinacalcet 30 mg 05/14/16 09:00 05/17/16 08:02 Sensipar Tab* PO 30 mg QAM HANK Administration Guaifenesin 600 mg 05/13/16 17:55 05/16/16 20:27 Mucinex* PO 600 mg BID PRN Administration CONGESTION Sodium Chloride 1,000 mls @ 75 mls/hr 05/15/16 17:30 05/17/16 06:25 Ns 0.9% 1000 Ml* IV 75 mls/hr PER RATE [facility]ANK Administration Lorazepam 1 mg 05/13/16 18:05 05/16/16 22:27 Ativan Tab(*) PO 1 mg BEDTIME PRN Administration ANXIETY Lorazepam 0.25 mg 05/13/16 18:05 Ativan Tab(*) PO QAM PRN ANXIETY Lorazepam 1 mg 05/13/16 18:05 05/17/16 08:02 Ativan Tab(*) PO 1 mg Q4H PRN Administration ANXIETY Morphine Sulfate 2.5 mg 05/14/16 08:57 Morphine Oral Concentrate* SL Q1H PRN SHORTNESS OF BREATH Bevespi Aerosphere 2 admin 05/14/16 13:04 05/17/16 08:01 Mdi INH 2 admin BID HANK Administration Opium Tincture 6 mg 05/13/16 22:00 05/17/16 10:13 Opium Tincture* PO 6 mg Q4HR HANK Administration Paroxetine HCl 20 mg 05/13/16 21:00 05/16/16 22:27 Paxil Tab* PO 20 mg BEDTIME HANK Administration Pharmacy Profile Note 1 note 05/14/16 17:00 05/16/16 17:15 Coumadin Daily Reminder* FOLLOW UP Not Given 1700 HANK Polyvinyl Alcohol 1 drop 05/16/16 22:14 05/16/16 22:29 Polyvinyl Alcohol 1.4% Opth* BOTH EYES 1 drop Q2H PRN Administration DRY EYE Prednisone 60 mg 05/17/16 09:00 05/17/16 08:02 Deltasone Tab* PO 60 mg DAILY HANK Administration Vital Signs Temp Pulse Resp BP Pulse Ox 97.8 F 79 18 134/57 96 05/17/16 12:30 05/17/16 12:57 05/17/16 12:57 05/17/16 12:30 05/17/16 12:57 O/E: Gen: Pt in bed in NAD HEENT: PERRLA, NO JVD Lungs: diminished a/e b/l, no wheeze CVS: S1, S2+ Abd: Soft, BS+ Ext: No edema Neuro: No focal defecits Laboratory Last Values WBC 10.6 10^3/ul (3.5-10.8) 05/13/16 15:10 RBC 4.64 10^6/ul (4.0-5.4) 05/13/16 15:10 Hgb 13.6 g/dl (12.0-16.0) 05/13/16 15:10 Hct 41 % (35-47) 05/13/16 15:10 MCV 89 fL (80-97) 05/13/16 15:10 MCH 29 pg (27-31) 05/13/16 15:10 MCHC 33 g/dl (31-36) 05/13/16 15:10 RDW 13 % (10.5-15) 05/13/16 15:10 Plt Count 260 10^3/ul (150-450) 05/13/16 15:10 MPV 8 um3 (7.4-10.4) 05/13/16 15:10 Neut % (Auto) 84.0 % (38-83) H 05/13/16 15:10 Lymph % (Auto) 12.1 % (25-47) L 05/13/16 15:10 [facility] % (Auto) 2.7 % (1-9) 05/13/16 15:10 Eos % (Auto) 0.7 % (0-6) 05/13/16 15:10 Baso % (Auto) 0.5 % (0-2) 05/13/16 15:10 Absolute Neuts (auto) 8.9 10^3/ul (1.5-7.7) H 05/13/16 15:10 Absolute Lymphs (auto) 1.3 10^3/ul (1.0-4.8) 05/13/16 15:10 Absolute Monos (auto) 0.3 10^3/ul (0-0.8) 05/13/16 15:10 Absolute Eos (auto) 0.1 10^3/ul (0-0.6) 05/13/16 15:10 Absolute Basos (auto) 0.1 10^3/ul (0-0.2) 05/13/16 15:10 Absolute Nucleated RBC 0 10^3/ul 05/13/16 15:10 Nucleated RBC % 0 05/13/16 15:10 INR (Anticoag Therapy) 1.38 (0.89-1.11) H 05/17/16 07:37 Sodium 138 mmol/L (133-145) 05/13/16 15:10 Potassium 4.4 mmol/L (3.5-5.0) 05/13/16 16:28 Chloride 101 mmol/L (101-111) 05/13/16 15:10 Carbon Dioxide 27 mmol/L (22-32) 05/13/16 15:10 Anion Gap TNP 05/13/16 15:10 BUN 34 mg/dL (6-24) H 05/13/16 15:10 Creatinine 1.69 mg/dL (0.51-0.95) H 05/13/16 15:10 Est GFR ( Amer) 38.3 (>60) 05/13/16 15:10 Est GFR (Non-Af Amer) 29.7 (>60) 05/13/16 15:10 BUN/Creatinine Ratio 20.1 (8-20) H 05/13/16 15:10 Glucose 132 mg/dL (70-100) H 05/13/16 15:10 Lactic Acid 2.2 mmol/L (0.5-2.0) H* 05/13/16 15:10 Calcium 8.9 mg/dL (8.6-10.3) 05/13/16 15:10 Total Bilirubin 0.50 mg/dL (0.2-1.0) 05/13/16 15:10 AST 19 U/L (13-39) 05/13/16 16:28 ALT 36 U/L (7-52) 05/13/16 15:10 Alkaline Phosphatase 92 U/L (34-104) 05/13/16 15:10 Troponin I 0.00 ng/mL (<0.04) 05/13/16 15:10 Total Protein 6.6 g/dL (6.4-8.9) 05/13/16 15:10 Albumin 3.7 g/dL (3.2-5.2) 05/13/16 15:10 Globulin 2.9 g/dL (2-4) 05/13/16 15:10 Albumin/Globulin Ratio 1.3 (1-3) 05/13/16 15:10 I/R: 70 y o f with h/o severe emphysema, O2 dependant, multiple comorbidities a/ f evaluationof worsening SOB, hypoxia being treated for acute COPD exacerbation Pt reports worsening SOB today Has standing order for nebs c/w Bevaspi Will begin steroid taper c/w O2 supplementation Flutter valve with instructions on usage PT, OOB to chair as tolerated Pt has h/o lung nodule in RLL with interval increase in size, pt doesnot want to go through biopsy palliative care evaluation noted It is likely that her breathing might not improve any further given terminal COPD
[2016-05-17] MEDS: Warfarin TAB(*) 1 MG PO SCH (16:21)
--- NOTE | 2016-05-17 17:22 | PN ---
Subjective Date of Service: 05/17/16 Interval History: Patient seen and examined at bedside. Pt reports a dry cough today and increased shortness of breath with exertion. She also reports feeling more fatigued today. Pt continues to want to have IV fluids while she is here. Denies fever, chills, N/V/D. Family History: Unchanged from Admission Social History: Unchanged from Admission Past Medical History: Unchanged from Admission Objective Active Medications: Acetaminophen (Tylenol Tab*) 650 mg PO Q4H PRN Reason: FEVER/PAIN Albuterol/Ipratropium (Duoneb (Albuterol 2.5 Mg/Ipratropium 0.5 Mg)) 1 neb INH [id number] AWAKE [facility] Aspirin (Aspirin Low Dose Tab*) 81 mg PO QAM [facility] Calcitriol (Rocaltrol Cap*) 0.25 mcg PO QAM [facility] Cinacalcet (Sensipar Tab*) 30 mg PO QAM [facility] Guaifenesin (Mucinex*) 600 mg PO BID PRN Reason: CONGESTION Sodium Chloride (Ns 0.9% 1000 Ml*) 1,000 mls @ 75 mls/hr IV PER RATE [facility] Lorazepam (Ativan Tab(*)) 1 mg PO BEDTIME PRN Reason: ANXIETY Lorazepam (Ativan Tab(*)) 0.25 mg PO QAM PRN Reason: ANXIETY Lorazepam (Ativan Tab(*)) 1 mg PO Q4H PRN Reason: ANXIETY Morphine Sulfate (Morphine Oral Concentrate*) 2.5 mg SL Q1H PRN Reason: SHORTNESS OF BREATH Bevespi Aerosphere (Mdi) 2 admin INH BID [facility] Opium Tincture (Opium Tincture*) 6 mg PO Q4HR [facility] Paroxetine HCl (Paxil Tab*) 20 mg PO BEDTIME [facility] Pharmacy Profile Note (Coumadin Daily Reminder*) 1 note FOLLOW UP 1700 [facility] Polyvinyl Alcohol (Polyvinyl Alcohol 1.4% Opth*) 1 drop BOTH EYES Q2H PRN Reason: DRY EYE Prednisone (Deltasone Tab*) 60 mg PO DAILY [facility] Warfarin Sodium (Coumadin Tab(*)) 1.5 mg PO DAILY@1700 [facility] Reason: Protocol Vital Signs 05/16/16 05/16/16 05/16/16 18:11 18:14 18:19 Temperature Pulse Rate 73 Respiratory 16 24 18 Rate Blood Pressure (mmHg) O2 Sat by Pulse 96 Oximetry 05/16/16 05/16/16 05/16/16 19:43 19:47 20:00 Temperature 98.6 F Pulse Rate 84 85 Respiratory 17 18 Rate Blood Pressure 131/35 132/46 (mmHg) O2 Sat by Pulse 94 Oximetry 05/16/16 05/16/16 05/16/16 22:28 23:13 23:18 Temperature 98.2 F Pulse Rate 83 80 Respiratory 18 23 Rate Blood Pressure 139/52 (mmHg) O2 Sat by Pulse 94 94 Oximetry 05/17/16 05/17/16 05/17/16 02:46 02:55 03:28 Temperature 98.2 F Pulse Rate 86 Respiratory 22 20 18 Rate Blood Pressure 88/67 (mmHg) O2 Sat by Pulse 97 Oximetry 05/17/16 05/17/16 05/17/16 03:45 04:46 04:55 Temperature Pulse Rate Respiratory 16 16 Rate Blood Pressure 116/68 (mmHg) O2 Sat by Pulse Oximetry 05/17/16 05/17/16 05/17/16 06:23 07:50 08:02 Temperature 97.6 F Pulse Rate 77 Respiratory 22 18 20 Rate Blood Pressure 126/50 (mmHg) O2 Sat by Pulse 97 Oximetry 05/17/16 05/17/16 05/17/16 12:13 12:30 12:56 Temperature 97.8 F Pulse Rate 79 79 Respiratory 18 18 18 Rate Blood Pressure 134/57 (mmHg) O2 Sat by Pulse 96 98 Oximetry 05/17/16 05/17/16 05/17/16 12:57 15:16 16:21 Temperature 98.0 F Pulse Rate 79 82 Respiratory 18 20 22 Rate Blood Pressure 129/48 (mmHg) O2 Sat by Pulse 96 95 Oximetry Oxygen Devices in Use Now: Nasal Cannula - 3L Appearance: NAD, sitting up in bed Eyes: No Scleral Icterus, PERRLA Respiratory: Symmetrical Chest Expansion and Respiratory Effort, Clear to Auscultation - , diminished Cardiovascular: NL Sounds; No Murmurs; No JVD, RRR Abdominal: NL Sounds; No Tenderness; No Distention Extremities: No Edema Skin: No Rash or Ulcers Neurological: Alert and Oriented x 3, NL Muscle Strength and Tone Lines/Tubes/Other Access: Clean, Dry and Intact Peripheral IV - site benign Nutrition: Taking PO's Result Diagrams: 05/13/16 15:10 05/13/16 16:28 Additional Lab and Data: Assess/Plan/Problems-Billing Assessment: Ms. Beckwith is a 70 yo female with PMH significant for COPD on home O2, with lung malignancy, Crohn disease, CKD stage 3 who presented to the hospital with worsening shortness of breath. - Patient Problems (1) COPD exacerbation Code(s): J44.1 - CHRONIC OBSTRUCTIVE PULMONARY DISEASE W (ACUTE) EXACERBATION SNOMED Code(s): 207118327 Comment: - Failed outpatient treatment. Appreciate pulmonology consult. - Continue Bevaspi, d/c Dulera and Spiriva. - Continue prn O2, flutter valve. - Palliative care consult for advanced disease process - Continue Prednisone taper (2) Crohn's disease Code(s): K50.90 - CROHN'S DISEASE, UNSPECIFIED, WITHOUT COMPLICATIONS SNOMED Code(s): 69163894 Comment: - With ileostomy. - Continue tincture of opium. (3) History of pulmonary embolism Code(s): Z86.711 - PERSONAL HISTORY OF PULMONARY EMBOLISM SNOMED Code(s): 679589446 Comment: - Resume home warfarin - Daily INR (4) CKD (chronic kidney disease), stage IV Code(s): N18.4 - CHRONIC KIDNEY DISEASE, STAGE 4 (SEVERE) SNOMED Code(s): 618480117 Comment: - Creatinine within baseline (5) Depression Code(s): F32.9 - MAJOR DEPRESSIVE DISORDER, SINGLE EPISODE, UNSPECIFIED SNOMED Code(s): 52074609 Comment: - Continue Paxil (6) DVT prophylaxis Code(s): DNE9957 - SNOMED Code(s): 640262608 Comment: - Warfarin (7) DNR (do not resuscitate) Status and Disposition: Inpatient admit. Palliative care consult to guide discharge plan.
[2016-05-17] MEDS: PARoxetine HCL TAB* 20 MG PO SCH (22:09)
[2016-05-17] MEDS: Artificial Tears* 15 ML BTL BOTH EYES PRN (22:26)
[2016-05-17] MEDS: Saline NASAL SPRAY 0.65%* BTL BOTH NARES PRN (22:29)
[2016-05-18] MEDS: Morphine ORAL CONCENTRATE* 5 MG/0.25 ML ORAL.SYRIN SL PRN ×7 (00:03→21:21)
[2016-05-18] MEDS: Opium Tincture* 6 MG/0.6 ML ORAL.LIQ SYRINGE PO SCH ×6 (02:23→22:07)
[2016-05-18] MEDS: Saline NASAL SPRAY 0.65%* BTL BOTH NARES PRN (02:57)
[2016-05-18] MEDS: Albuterol/Ipratropium NEB.SOL* Albuterol 2.5 MG/Ipratropium 0.5 MG 3 ML INH SCH ×7 (03:00→23:12)
[2016-05-18] MEDS: LORazepam TAB(*) 1 MG PO PRN ×2 (06:04→22:06)
[2016-05-18] MEDS: Acetaminophen TAB* 325 MG PO PRN ×2 (06:04→23:33)
[2016-05-18] MEDS: Cinacalcet TAB* 30 MG PO SCH (10:04)
[2016-05-18] MEDS: Calcitriol CAP* 0.25 MCG PO SCH (10:04)
[2016-05-18] MEDS: Aspirin Low Dose CHEW TAB* 81 MG PO SCH (10:04)
[2016-05-18] MEDS: predniSONE TAB* 20 MG PO SCH (10:04)
[2016-05-18] MEDS: Nystatin SUSPENSION* 100000 UNITS/ML 5 ML UDC SWISH SWAL SCH ×3 (10:05→21:04)
[2016-05-18] MEDS: FORMOTEROL INH SCH ×2 (10:05→21:05)
[2016-05-18] MEDS: GLYCOPYRROLATE INH SCH ×2 (10:05→21:05)
[2016-05-18] MEDS: Warfarin TAB(*) 1 MG PO SCH (17:50)
--- NOTE | 2016-05-18 18:55 | PN ---
Subjective Date of Service: 05/18/16 Interval History: Patient seen and examined at bedside. Reports that her dyspnea with exertion is improved with the use of morphine. She continues to have a dry non productive cough. Denies fever, chills, chest discomfort, N/V/D. Family History: Unchanged from Admission Social History: Unchanged from Admission Past Medical History: Unchanged from Admission Objective Active Medications: Acetaminophen (Tylenol Tab*) 650 mg PO Q4H PRN Reason: FEVER/PAIN Albuterol/Ipratropium (Duoneb (Albuterol 2.5 Mg/Ipratropium 0.5 Mg)) 1 neb INH [id number] AWAKE [facility] Aspirin (Aspirin Low Dose Tab*) 81 mg PO QAM [facility] Calcitriol (Rocaltrol Cap*) 0.25 mcg PO QAM [facility] Cinacalcet (Sensipar Tab*) 30 mg PO QAM [facility] Guaifenesin (Mucinex*) 600 mg PO BID PRN Reason: CONGESTION Lorazepam (Ativan Tab(*)) 1 mg PO BEDTIME PRN Reason: ANXIETY Lorazepam (Ativan Tab(*)) 0.25 mg PO QAM PRN Reason: ANXIETY Lorazepam (Ativan Tab(*)) 1 mg PO Q4H PRN Reason: ANXIETY Morphine Sulfate (Morphine Oral Concentrate*) 2.5 mg SL Q1H PRN Reason: SHORTNESS OF BREATH Bevespi Aerosphere (Mdi) 2 admin INH BID [facility] Nystatin (Nystatin Suspension*) 500,000 units SWISH SWAL TID [facility] Opium Tincture (Opium Tincture*) 6 mg PO Q4HR [facility] Paroxetine HCl (Paxil Tab*) 20 mg PO BEDTIME [facility] Pharmacy Profile Note (Coumadin Daily Reminder*) 1 note FOLLOW UP 1700 [facility] Polyvinyl Alcohol (Polyvinyl Alcohol 1.4% Opth*) 1 drop BOTH EYES Q2H PRN Reason: DRY EYE Prednisone (Deltasone Tab*) 60 mg PO DAILY [facility] Sodium Chloride (Sodium Chloride 0.65% Nasal [place]*) 1 spray BOTH NARES Q4H PRN Reason: CONGESTION Warfarin Sodium (Coumadin Tab(*)) 1.5 mg PO DAILY@1700 [facility] Reason: Protocol Vital Signs 05/17/16 05/17/16 05/17/16 19:05 20:18 21:00 Temperature 98.1 F Pulse Rate 90 Respiratory 18 24 24 Rate Blood Pressure 138/61 (mmHg) O2 Sat by Pulse 93 Oximetry 05/17/16 05/17/16 05/17/16 21:40 22:09 22:10 Temperature Pulse Rate 95 Respiratory 20 20 Rate Blood Pressure (mmHg) O2 Sat by Pulse 92 Oximetry 05/17/16 05/18/16 05/18/16 23:25 00:03 02:23 Temperature 98.5 F Pulse Rate 98 Respiratory 16 22 22 Rate Blood Pressure 126/40 (mmHg) O2 Sat by Pulse 95 Oximetry 05/18/16 05/18/16 05/18/16 02:26 03:32 04:23 Temperature 98.0 F Pulse Rate 85 Respiratory 22 20 20 Rate Blood Pressure 133/56 (mmHg) O2 Sat by Pulse 97 Oximetry 05/18/16 05/18/16 05/18/16 07:14 08:00 08:02 Temperature 97.7 F Pulse Rate 74 Respiratory 22 22 22 Rate Blood Pressure 114/47 (mmHg) O2 Sat by Pulse 93 Oximetry 05/18/16 05/18/16 05/18/16 11:59 12:03 12:14 Temperature 98.6 F Pulse Rate 72 Respiratory 24 21 21 Rate Blood Pressure 118/53 (mmHg) O2 Sat by Pulse 93 Oximetry 05/18/16 05/18/16 05/18/16 12:23 13:22 13:23 Temperature Pulse Rate 72 Respiratory 16 22 22 Rate Blood Pressure (mmHg) O2 Sat by Pulse 92 Oximetry 05/18/16 05/18/16 05/18/16 15:22 16:05 17:12 Temperature 98.6 F Pulse Rate 72 Respiratory 20 24 22 Rate Blood Pressure 124/44 (mmHg) O2 Sat by Pulse 94 Oximetry Oxygen Devices in Use Now: Nasal Cannula - 3L Appearance: NAD, sitting up in bed Eyes: No Scleral Icterus, PERRLA Respiratory: Symmetrical Chest Expansion and Respiratory Effort, - - Lung sounds with rhonchi bilateral Cardiovascular: NL Sounds; No Murmurs; No JVD, RRR Abdominal: NL Sounds; No Tenderness; No Distention Extremities: No Edema Skin: No Rash or Ulcers Neurological: Alert and Oriented x 3, NL Muscle Strength and Tone Lines/Tubes/Other Access: Clean, Dry and Intact Peripheral IV - site benign Nutrition: Taking PO's Result Diagrams: 05/13/16 15:10 05/13/16 16:28 Additional Lab and Data: Assess/Plan/Problems-Billing Assessment: Ms. Beckwith is a 70 yo female with PMH significant for COPD on home O2, with lung malignancy, Crohn disease, CKD stage 3 who presented to the hospital with worsening shortness of breath. - Patient Problems (1) COPD exacerbation Code(s): J44.1 - CHRONIC OBSTRUCTIVE PULMONARY DISEASE W (ACUTE) EXACERBATION SNOMED Code(s): 392233652 Comment: - Failed outpatient treatment. Appreciate pulmonology consult. - Continue Bevaspi, d/c Dulera and Spiriva. - Continue prn O2, flutter valve. - Palliative care consult for advanced disease process - Continue Prednisone taper (2) Crohn's disease Code(s): K50.90 - CROHN'S DISEASE, UNSPECIFIED, WITHOUT COMPLICATIONS SNOMED Code(s): 75643352 Comment: - With ileostomy. - Continue tincture of opium. (3) History of pulmonary embolism Code(s): Z86.711 - PERSONAL HISTORY OF PULMONARY EMBOLISM SNOMED Code(s): 940923644 Comment: - Resume home warfarin - Daily INR (4) CKD (chronic kidney disease), stage IV Code(s): N18.4 - CHRONIC KIDNEY DISEASE, STAGE 4 (SEVERE) SNOMED Code(s): 023510487 Comment: - Creatinine within baseline (5) Depression Code(s): F32.9 - MAJOR DEPRESSIVE DISORDER, SINGLE EPISODE, UNSPECIFIED SNOMED Code(s): 09566270 Comment: - Continue Paxil (6) DVT prophylaxis Code(s): [id number] - SNOMED Code(s): 150660253 Comment: - Warfarin (7) DNR (do not resuscitate) Status and Disposition: Inpatient admit. Plan for discharge to home with Hospice services on Friday.
[2016-05-18] MEDS: PARoxetine HCL TAB* 20 MG PO SCH (21:03)
[2016-05-18] MEDS: Artificial Tears* 15 ML BTL BOTH EYES PRN (22:08)
[2016-05-19] MEDS: Morphine ORAL CONCENTRATE* 5 MG/0.25 ML ORAL.SYRIN SL PRN ×3 (01:54→22:43)
[2016-05-19] MEDS: Opium Tincture* 6 MG/0.6 ML ORAL.LIQ SYRINGE PO SCH ×6 (01:55→21:33)
[2016-05-19] MEDS: LORazepam TAB(*) 1 MG PO PRN ×4 (01:56→22:44)
[2016-05-19] MEDS: Saline NASAL SPRAY 0.65%* BTL BOTH NARES PRN ×3 (01:58→13:24)
[2016-05-19] MEDS: Albuterol/Ipratropium NEB.SOL* Albuterol 2.5 MG/Ipratropium 0.5 MG 3 ML INH SCH (03:20)
[2016-05-19] MEDS ORDERED: Ipratropium 0.5MG/2.5ML NEB* 0.5 MG/2.5 ML NEB.SOLN ONE (03:24)
[2016-05-19] MEDS: Levalbuterol 1.25MG/0.5ML NEB INH SCH ×4 (03:32→19:30)
[2016-05-19] MEDS: Ipratropium 0.5MG/2.5ML NEB* 0.5 MG/2.5 ML NEB.SOLN INH SCH ×4 (03:50→19:30)
[2016-05-19] MEDS: Nystatin SUSPENSION* 100000 UNITS/ML 5 ML UDC SWISH SWAL SCH ×3 (07:56→21:34)
[2016-05-19] MEDS: Aspirin Low Dose CHEW TAB* 81 MG PO SCH (07:56)
[2016-05-19] MEDS: Cinacalcet TAB* 30 MG PO SCH (07:56)
[2016-05-19] MEDS: predniSONE TAB* 20 MG PO SCH (07:56)
[2016-05-19] MEDS: Calcitriol CAP* 0.25 MCG PO SCH (07:56)
[2016-05-19] MEDS: FORMOTEROL INH SCH ×2 (07:57→21:34)
[2016-05-19] MEDS: GLYCOPYRROLATE INH SCH ×2 (07:57→21:34)
[2016-05-19] MEDS: Acetaminophen TAB* 325 MG PO PRN ×4 (08:01→23:45)
[2016-05-19] MEDS: Warfarin TAB(*) 1 MG PO SCH (17:40)
--- NOTE | 2016-05-19 20:04 | PN ---
Subjective Date of Service: 05/19/16 Interval History: Patient seen and examined at bedside. Denies fever, chills, chest discomfort, N/ V/D. Pt reports that her shortness of breath on exertion has improved with the use of SL morphine. Pt is wondering about getting IV fluids overnight, we discussed her goals and that she had requested Palliative/Hospice care. Pt agrees that she doesn't need the IV fluids and is eating and drinking well. We also discussed stopping some of her medications, and she would like to continue all of them at this time. Family History: Unchanged from Admission Social History: Unchanged from Admission Past Medical History: Unchanged from Admission Objective Active Medications: Acetaminophen (Tylenol Tab*) 650 mg PO Q4H PRN Reason: FEVER/PAIN Aspirin (Aspirin Low Dose Tab*) 81 mg PO QAM [facility] Calcitriol (Rocaltrol Cap*) 0.25 mcg PO QAM [facility] Cinacalcet (Sensipar Tab*) 30 mg PO QAM [facility] Guaifenesin (Mucinex*) 600 mg PO BID PRN Reason: CONGESTION Ipratropium [place] (Atrovent 0.5 Mg Neb.Vesna*) 0.5 mg INH [id number] AWAKE [facility] Levalbuterol HCl (Xopenex 1.25 Mg/0.5 Ml Neb.Vesna*) 1.25 mg INH Q6H [facility] Lorazepam (Ativan Tab(*)) 1 mg PO BEDTIME PRN Reason: ANXIETY Lorazepam (Ativan Tab(*)) 0.25 mg PO QAM PRN Reason: ANXIETY Lorazepam (Ativan Tab(*)) 1 mg PO Q4H PRN Reason: ANXIETY Morphine Sulfate (Morphine Oral Concentrate*) 2.5 mg SL Q1H PRN Reason: SHORTNESS OF BREATH Bevespi Aerosphere (Mdi) 2 admin INH BID [facility] Nystatin (Nystatin Suspension*) 500,000 units SWISH SWAL TID [facility] Opium Tincture (Opium Tincture*) 6 mg PO Q4HR [facility] Paroxetine HCl (Paxil Tab*) 20 mg PO BEDTIME [facility] Pharmacy Profile Note (Coumadin Daily Reminder*) 1 note FOLLOW UP 1700 [facility] Polyvinyl Alcohol (Polyvinyl Alcohol 1.4% Opth*) 1 drop BOTH EYES Q2H PRN Reason: DRY EYE Prednisone (Deltasone Tab*) 50 mg PO DAILY [facility] Sodium Chloride (Sodium Chloride 0.65% Nasal [place]*) 1 spray BOTH NARES Q4H PRN Reason: CONGESTION Vitamin B Complex/Vitamin E (Complex B-100*) 1 tab PO DAILY [facility] Warfarin Sodium (Coumadin Tab(*)) 1.5 mg PO DAILY@1700 [facility] Reason: Protocol Vital Signs 05/18/16 05/18/16 05/18/16 20:26 21:21 22:06 Temperature 98.4 F Pulse Rate 79 Respiratory 16 28 18 Rate Blood Pressure 120/53 (mmHg) O2 Sat by Pulse 93 Oximetry 05/18/16 05/18/16 05/18/16 22:07 23:21 23:44 Temperature 97.9 F Pulse Rate 108 Respiratory 18 22 20 Rate Blood Pressure 124/59 (mmHg) O2 Sat by Pulse 96 Oximetry 05/19/16 05/19/16 05/19/16 01:56 03:35 03:52 Temperature 98.0 F Pulse Rate 74 85 Respiratory 24 18 20 Rate Blood Pressure 142/56 (mmHg) O2 Sat by Pulse 96 92 Oximetry 05/19/16 05/19/16 05/19/16 03:56 06:20 07:46 Temperature 97.6 F Pulse Rate 78 Respiratory 20 18 20 Rate Blood Pressure 127/61 (mmHg) O2 Sat by Pulse 94 Oximetry 05/19/16 05/19/16 05/19/16 07:55 08:00 08:05 Temperature Pulse Rate 82 Respiratory 20 20 17 Rate Blood Pressure (mmHg) O2 Sat by Pulse 95 Oximetry 05/19/16 05/19/16 05/19/16 12:08 12:43 12:52 Temperature 98.0 F Pulse Rate 74 79 Respiratory 18 16 18 Rate Blood Pressure 124/45 (mmHg) O2 Sat by Pulse 96 96 Oximetry 05/19/16 05/19/16 05/19/16 15:59 17:35 19:32 Temperature 97.9 F Pulse Rate 82 80 Respiratory 16 18 18 Rate Blood Pressure 110/51 (mmHg) O2 Sat by Pulse 94 94 Oximetry Oxygen Devices in Use Now: Nasal Cannula - 3L Appearance: NAD, sitting up in a chair Respiratory: Symmetrical Chest Expansion and Respiratory Effort, - - Rhonchi bilateral, that clear with cough. LS diminished. Cardiovascular: RRR Abdominal: NL Sounds; No Tenderness; No Distention Extremities: No Edema Skin: No Rash or Ulcers Neurological: Alert and Oriented x 3, NL Muscle Strength and Tone Lines/Tubes/Other Access: Clean, Dry and Intact Peripheral IV - site benign Nutrition: Taking PO's Result Diagrams: 05/13/16 15:10 05/13/16 16:28 Additional Lab and Data: Microbiology and Other Data: Microbiology 05/19/16 03:50 Gram Stain - Final Sputum Expectorated Assess/Plan/Problems-Billing Assessment: Ms. Beckwith is a 70 yo female with PMH significant for COPD on home O2, with lung malignancy, Crohn disease, CKD stage 3 who presented to the hospital with worsening shortness of breath. - Patient Problems (1) COPD exacerbation Code(s): J44.1 - CHRONIC OBSTRUCTIVE PULMONARY DISEASE W (ACUTE) EXACERBATION SNOMED Code(s): 975561486 Comment: - Failed outpatient treatment. Appreciate pulmonology consult. - Continue Bevaspi, d/c Dulera and Spiriva. - Continue prn O2, flutter valve. - Palliative care consult for advanced disease process - Continue Prednisone taper (2) Crohn's disease Code(s): K50.90 - CROHN'S DISEASE, UNSPECIFIED, WITHOUT COMPLICATIONS SNOMED Code(s): 21065639 Comment: - With ileostomy. - Continue tincture of opium. (3) History of pulmonary embolism Code(s): Z86.711 - PERSONAL HISTORY OF PULMONARY EMBOLISM SNOMED Code(s): 667338800 Comment: - Resume home warfarin - Daily INR (4) CKD (chronic kidney disease), stage IV Code(s): N18.4 - CHRONIC KIDNEY DISEASE, STAGE 4 (SEVERE) SNOMED Code(s): 684874333 Comment: - Creatinine within baseline (5) Depression Code(s): F32.9 - MAJOR DEPRESSIVE DISORDER, SINGLE EPISODE, UNSPECIFIED SNOMED Code(s): 20331023 Comment: - Continue Paxil (6) DVT prophylaxis Code(s): KED4028 - SNOMED Code(s): 780973391 Comment: - Warfarin (7) DNR (do not resuscitate) Status and Disposition: Inpatient admit. Plan for discharge to home with Hospice services on Friday.
[2016-05-19] MEDS: PARoxetine HCL TAB* 20 MG PO SCH (21:34)
[2016-05-20] MEDS: Levalbuterol 1.25MG/0.5ML NEB INH SCH ×2 (01:01→09:40)
[2016-05-20] MEDS: Ipratropium 0.5MG/2.5ML NEB* 0.5 MG/2.5 ML NEB.SOLN INH SCH ×2 (01:01→09:40)
[2016-05-20] MEDS: Opium Tincture* 6 MG/0.6 ML ORAL.LIQ SYRINGE PO SCH ×3 (02:02→10:11)
[2016-05-20] MEDS: Morphine ORAL CONCENTRATE* 5 MG/0.25 ML ORAL.SYRIN SL PRN ×3 (03:38→10:02)
[2016-05-20] MEDS: LORazepam TAB(*) 1 MG PO PRN (03:38)
[2016-05-20 05:42] VITALS: BP 137/51
[2016-05-20] MEDS ORDERED: predniSONE TAB* 50 MG PO SCH (09:00)
[2016-05-20] MEDS ORDERED: Vitamin B Complex TAB PO SCH (09:00)
[2016-05-20] MEDS: Aspirin Low Dose CHEW TAB* 81 MG PO SCH (09:08)
[2016-05-20] MEDS: Cinacalcet TAB* 30 MG PO SCH (09:08)
[2016-05-20] MEDS: Calcitriol CAP* 0.25 MCG PO SCH (09:08)
--- NOTE | 2016-05-20 10:00 | DCNOTE ---
Subjective Date of Service: 05/20/16 Interval History: . Pt reports she is looking forward to going home. Reports her pain is controlled. Some diarrhea but states this is her baseline. Reports good appetite - no N/V. No other complaints. Family History: Unchanged from Admission Social History: Unchanged from Admission Past Medical History: Unchanged from Admission Objective Active Medications: Acetaminophen (Tylenol Tab*) 650 mg PO Q4H PRN PRN Reason: FEVER/PAIN Last Admin: 05/19/16 23:45 Dose: 650 mg Aspirin (Aspirin Low Dose Tab*) 81 mg PO QAM [facility] Last Admin: 05/20/16 09:08 Dose: 81 mg Calcitriol (Rocaltrol Cap*) 0.25 mcg PO QAM [facility] Last Admin: 05/20/16 09:08 Dose: 0.25 mcg Cinacalcet (Sensipar Tab*) 30 mg PO QAM [facility] Last Admin: 05/20/16 09:08 Dose: 30 mg Guaifenesin (Mucinex*) 600 mg PO BID PRN PRN Reason: CONGESTION Last Admin: 05/16/16 20:27 Dose: 600 mg Ipratropium [place] (Atrovent 0.5 Mg Neb.Vesna*) 0.5 mg INH [id number] AWAKE [facility] Last Admin: 05/20/16 09:40 Dose: 0.5 mg Levalbuterol HCl (Xopenex 1.25 Mg/0.5 Ml Neb.Vesna*) 1.25 mg INH Q6H [facility] Last Admin: 05/20/16 09:40 Dose: 1.25 mg Lorazepam (Ativan Tab(*)) 1 mg PO BEDTIME PRN PRN Reason: ANXIETY Last Admin: 05/20/16 03:38 Dose: 1 mg Lorazepam (Ativan Tab(*)) 0.25 mg PO QAM PRN PRN Reason: ANXIETY Lorazepam (Ativan Tab(*)) 1 mg PO Q4H PRN PRN Reason: ANXIETY Last Admin: 05/19/16 13:21 Dose: 1 mg Morphine Sulfate (Morphine Oral Concentrate*) 2.5 mg SL Q1H PRN PRN Reason: SHORTNESS OF BREATH Last Admin: 05/20/16 06:21 Dose: 2.5 mg Bevespi Aerosphere (Mdi) 2 admin INH BID [facility] Last Admin: 05/19/16 21:34 Dose: 2 admin Nystatin (Nystatin Suspension*) 500,000 units SWISH SWAL TID [facility] Last Admin: 05/19/16 21:34 Dose: 500,000 units Opium Tincture (Opium Tincture*) 6 mg PO Q4HR [facility] Last Admin: 05/20/16 06:14 Dose: 6 mg Paroxetine HCl (Paxil Tab*) 20 mg PO BEDTIME [facility] Last Admin: 05/19/16 21:34 Dose: 20 mg Pharmacy Profile Note (Coumadin Daily Reminder*) 1 note FOLLOW UP 1700 [facility] Last Admin: 05/19/16 17:40 Dose: 1 note Polyvinyl Alcohol (Polyvinyl Alcohol 1.4% Opth*) 1 drop BOTH EYES Q2H PRN PRN Reason: DRY EYE Last Admin: 05/18/16 22:08 Dose: 1 drop Prednisone (Deltasone Tab*) 50 mg PO DAILY [facility] Last Admin: 05/20/16 09:08 Dose: 50 mg Sodium Chloride (Sodium Chloride 0.65% Nasal [place]*) 1 spray BOTH NARES Q4H PRN PRN Reason: CONGESTION Last Admin: 05/19/16 13:24 Dose: 1 spray Vitamin B Complex/Vitamin E (Complex B-100*) 1 tab PO DAILY [facility] Last Admin: 05/20/16 09:08 Dose: 1 tab Vital Signs 05/19/16 05/19/16 05/19/16 10:08 12:08 12:43 Temperature 98.0 F Pulse Rate 74 Respiratory 16 18 16 Rate Blood Pressure 124/45 (mmHg) O2 Sat by Pulse 96 Oximetry 05/19/16 05/19/16 05/19/16 12:52 13:21 13:23 Temperature Pulse Rate 79 Respiratory 18 16 16 Rate Blood Pressure (mmHg) O2 Sat by Pulse 96 Oximetry 05/19/16 05/19/16 05/19/16 15:21 15:59 17:35 Temperature 97.9 F Pulse Rate 82 Respiratory 18 16 18 Rate Blood Pressure 110/51 (mmHg) O2 Sat by Pulse 94 Oximetry 05/19/16 05/19/16 05/19/16 19:27 19:32 19:35 Temperature 98.5 F Pulse Rate 79 80 Respiratory 20 18 16 Rate Blood Pressure 130/56 (mmHg) O2 Sat by Pulse 94 94 Oximetry 05/19/16 05/19/1617 21:30 21:33 22:43 Temperature Pulse Rate Respiratory 18 18 22 Rate Blood Pressure (mmHg) O2 Sat by Pulse Oximetry 05/19/16 05/19/16 05/19/16 22:44 23:33 23:50 Temperature 98.6 F Pulse Rate 89 Respiratory 22 18 18 Rate Blood Pressure 137/57 (mmHg) O2 Sat by Pulse 95 Oximetry 05/20/16 05/20/16 05/20/16 00:44 01:04 02:02 Temperature Pulse Rate 83 Respiratory 18 18 18 Rate Blood Pressure (mmHg) O2 Sat by Pulse 94 Oximetry 05/20/16 05/20/16 05/20/16 03:38 03:44 04:02 Temperature 98.4 F Pulse Rate 78 Respiratory 18 18 16 Rate Blood Pressure 137/51 (mmHg) O2 Sat by Pulse 96 Oximetry 05/20/16 05/20/16 05/20/16 05:38 06:14 06:21 Temperature Pulse Rate Respiratory 18 18 16 Rate Blood Pressure (mmHg) O2 Sat by Pulse Oximetry 05/20/16 05/20/16 05/20/16 08:14 08:21 09:46 Temperature Pulse Rate 83 Respiratory 18 18 18 Rate Blood Pressure (mmHg) O2 Sat by Pulse 92 Oximetry Oxygen Devices in Use Now: Nasal Cannula - 2L at baseline Appearance: 70 yo chronically ill appearing female sitting up in bed in NAD eating breakfast A+ox3 Eyes: No Scleral Icterus, PERRLA Ears/Nose/Mouth/Throat: NL Teeth, Lips, Gums Neck: NL Appearance and Movements; NL JVP Respiratory: Symmetrical Chest Expansion and Respiratory Effort Cardiovascular: NL Sounds; No Murmurs; No JVD, RRR, No Edema Abdominal: NL Sounds; No Tenderness; No Distention Extremities: No Edema, No Clubbing, Cyanosis Skin: No Rash or Ulcers, No Nodules or Sclerosis Neurological: Alert and Oriented x 3, NL Sensation, NL Muscle Strength and Tone Lines/Tubes/Other Access: Clean, Dry and Intact Peripheral IV Nutrition: Taking PO's Result Diagrams: 05/13/16 15:10 05/13/16 16:28 Additional Lab and Data: Microbiology and Other Data: Microbiology 05/19/16 03:50 Gram Stain - Final Sputum Expectorated Assess/Plan/Problems-Billing Assessment: Ms. Beckwith is a 70 yo female with PMH significant for end-stage COPD on home O2 , with lung malignancy, Crohn disease, CKD stage 3-4 who presented to the hospital with worsening shortness of breath; plan is for Hospice at home. - Patient Problems (1) Chronic respiratory failure with hypoxia Comment: - End-stage COPD with severe emphysema and hx of lung cancer with suggestion of enlarging nodule. - Appears to be new baseline - was on home O2 only at night up until recently, now requiring O2 at all times. Using 2-4L NC. - Continue Bevaspi - prednisone taper - Plan fofr Hospice Intake today at home with goals of palliative treatment. - Continue Oral morphine and atvian prn (2) CKD (chronic kidney disease), stage IV Comment: - Looking back at the baseline GFR appears to flucuate between Stage G3B-G4 - Creatinine within baseline (3) Crohn's disease Comment: - With ileostomy. - Continue tincture of opium. (4) Depression Comment: - Continue Paxil (5) History of pulmonary embolism Comment: - Resume home warfarin - Daily INR Status and Disposition: Inpatient. Plan for DC to home with Hospice sign on today.
[2016-05-20] MEDS: GLYCOPYRROLATE INH SCH (10:02)
[2016-05-20] MEDS: FORMOTEROL INH SCH (10:02)
[2016-05-20] MEDS: Nystatin SUSPENSION* 100000 UNITS/ML 5 ML UDC SWISH SWAL SCH (10:03)
[2016-05-20] MEDS: Acetaminophen TAB* 325 MG PO PRN (10:54)
--- NOTE | 2016-05-20 12:38 | DS ---
DATE OF ADMISSION: 05/13/2016. DATE OF DISCHARGE: 05/20/2016. PROVIDER: Anish Page NP. ATTENDING PHYSICIAN: Dr. Kasper* (reported dictated by Anish Page NP). PRIMARY CARE PROVIDER: Dr. France. PALLIATIVE PROVIDER: Dr. Akiko Quintana. DISCHARGE DIAGNOSES: 1. Chronic respiratory failure secondary to end-stage COPD with severe emphysema and history of lung cancer with suggestion of an enlarging nodule. 2. Chronic kidney disease, stage 3 to 4. 3. Plan for hospice services. SECONDARY DIAGNOSES: 1. 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 2. Restless leg syndrome. 3. Anxiety and depression. 4. Crohn's disease with placement of an ileostomy. DISCHARGE MEDICATIONS: 1. Albuterol one puff INH q.4 to 6 hours prn. 2. Vitamin B12 injection 1000 mcg IM q.14 days. 3. Opium Tincture 0.6 ml p.o. q.4 hours for Crohn's disease. 4. Paxil 20 mg p.o. at bedtime. 5. Coumadin 2 mg p.o. q.p.m. 6. Calcitriol 0.25 mcg p.o. q.a.m. 7. Sensipar 30 mg p.o. q.a.m. 8. Aspirin 81 mg p.o. q.a.m. 9. Prednisone taper starting at 50 mg p.o. times 3 days, taper by 5 mg every 3 days. 10. Nystatin suspension 500,000 units swish and swallow t.i.d. 11. Bevespi Aerosphere two puffs INH b.i.d. 12. Morphine oral concentrate 5 mg p.o. q.4 hours prn, maximum daily dose 30 mg. 13. Ativan 1 mg p.o. q.4 hours prn, max daily dose 6 mg. *Medications to be reviewed by Hospice physician. HISTORY OF PRESENT ILLNESS AND HOSPITAL COURSE: Please see history and physical by Leana Onofre NP for full admission details. In summary, this is a 70 -year-old female with a past medical history of end-stage COPD with severe emphysema and history of lung malignancies, status post radiation, not currently on treatment with suggesting enlarging nodule, also with a history of Crohn's disease, status post ileostomy, and chronic kidney disease, stage 3 to 4 who presented on 05/13/2016 with complaint of increasing shortness of breath and cough. The patient reported she started feeling worse approximately a month prior to admission with increasing shortness of breath and cough and two weeks prior she was unable to walk more than five to six steps without becoming very short of breath and dyspneic. She also reported increasing anxiety. She reports she has had poor appetite and has lost approximately 12 pounds over the past four weeks. She did come to the emergency department on 05/03/2016 and at that time she had a chest CT which showed no change from previous with a history of right lung nodule and soft tissue density on the right. There is no evidence of pneumonia. At that time, she completed a course of the Azithromycin , but was not put on steroids. She did contact Dr. Zuniga regarding her shortness of breath a few days after being seen on 05/03/2016 and did start on a steroid taper. The patient reported no improvement of her symptoms from her steroid taper and decided to return to the emergency department on 05/13/2016 for further evaluation. The patient was admitted for COPD exacerbation and she was started on IV steroids, duo nebulizers, and an increase in Ativan to help with her anxiety and shortness of breath. The patient was seen in consultation by Dr. Zuniga, passport support manager, who noted the CT scan of her chest was suggestive interval increase in size of a 0.8 cm nodule on the right lobe and also noted to be a 1.9 x 3.8 cm soft tissue density in the apical posterior segment of the right upper lobe for which she was treated with radiation. Dr. Zuniga thought possibly she had acute chronic obstructive pulmonary disease with exacerbation, likely secondary to a viral bronchitis. The patient and her spouse decided they did not want aggressive treatment and asked for a palliative consult. The patient was enrolled in [facility] back in 2011 when she had a thoracic compression fracture. It was felt that she had bone cancer and was discharged to [facility] at that time, in which she graduated from. The patient was felt to meet criteria for eligibility for hospice, as well these are the patient's wishes. Dr. Zuniga states the patient has severe emphysema with end-stage chronic obstructive pulmonary disease which makes her eligible for hospice. As well she is now requiring oxygenation 16/09 and has chronic respiratory failure. The patient wishes to spend her time at home and refuses jail facility and feels that she can be managed at home. Today, the patient on evaluation is alert and oriented times three. She is looking forward to going home. At this time, we discussed continuing her home medications and discussed with the hospice physician if there are any recommended medications she should discontinue. DISCHARGE PLAN: 1. Plan for discharge to home with hospice intake today with Dr. Akiko Quintana and tipping machine operator automatic. 2. MOLST as stated as DNR/DNI. 3. The patient has a follow-up with Dr. France on 05/20/2016 for 10:00 p.m. TIME SPENT: Sixty minutes have been spent on this discharge. ANISH PAGE NP CC: Dr. France* [id number]/[facility] #: [id number] ANI
== END 2016-05-20 11:30 | disposition hospice, home (50) | DRG 191 ==
LOC: ED 14:05 → SSU 17:50 → UNDOADMOB 17:50 → OBSVTOIN 05-14 16:28
PROVIDERS: ADMIT Hospitalist; ATTEND Internal Medicine
DX: J44.1 Chronic obstructive pulmonary disease with (acute) exacerbation (principal); J96.10 Chronic respiratory failure, unspecified whether with hypoxia or hypercapnia; N18.4 Chronic kidney disease, stage 4 (severe); K50.90 Crohn's disease, unspecified, without complications; J20.9 Acute bronchitis, unspecified; J44.0 Chronic obstructive pulmonary disease with (acute) lower respiratory infection; R91.1 Solitary pulmonary nodule; F32.9 Major depressive disorder, single episode, unspecified; F17.210 Nicotine dependence, cigarettes, uncomplicated; G25.81 Restless legs syndrome; F41.9 Anxiety disorder, unspecified; Z85.118 Personal history of other malignant neoplasm of bronchus and lung; Z99.81 Dependence on supplemental oxygen; Z93.2 Ileostomy status; Z86.718 Personal history of other venous thrombosis and embolism; Z79.01 Long term (current) use of anticoagulants; Z86.711 Personal history of pulmonary embolism; Z79.82 Long term (current) use of aspirin; Z79.52 Long term (current) use of systemic steroids; Z79.899 Other long term (current) drug therapy; Z82.49 Family history of ischemic heart disease and other diseases of the circulatory system; Z83.3 Family history of diabetes mellitus; Z66 Do not resuscitate; Z88.1 Allergy status to other antibiotic agents; Z88.7 Allergy status to serum and vaccine; Z88.8 Allergy status to other drugs, medicaments and biological substances; Z91.018 Allergy to other foods; M81.0 Age-related osteoporosis without current pathological fracture
CPT/HCPCS: 36415; 71020; 80053; 83605; 84484; 85025; 85610; 87040; 87070; 87077; 87186; 87205; 93005; 94640; 94760; A9270-GY; G0378; J2930; J7512; J7644

== ENCOUNTER 2016-10-20 12:33 | Inpatient (IN) | payer MEDICARE ==
[2016-10-20] MEDS ORDERED: NS 0.9% 1000 ML* 1,000 ML IV ONE (14:31)
[2016-10-20] MEDS ORDERED: methylPREDNISolone 125 MG* 2 ML VIAL IV ONE (14:31)
[2016-10-20] MEDS ORDERED: Albuterol/Ipratropium NEB.SOL* Albuterol 2.5 MG/Ipratropium 0.5 MG 3 ML INH ONE (14:31)
[2016-10-20] MEDS ORDERED: Opium Tincture* 6 MG/0.6 ML ORAL.LIQ SYRINGE PO ONE (14:37)
[2016-10-20 14:45] LABS: Add Diff/Slide Review? Manual Diff Added; Comments Flag Yes; Hematocrit 41 % (35-47); Hemoglobin 13.9 g/dl (12.0-16.0); Mean Corpuscular HGB Conc 34 g/dl (31-36); Mean Corpuscular Hemoglobin 31 pg (27-31); Mean Corpuscular Volume 92 fL (80-97); Mean Platelet Volume 8 um3 (7.4-10.4); Red Blood Count 4.42 10^6/ul (4.0-5.4); Red Cell Distribution Width 14 % (10.5-15); White Blood Count 10.9 10^3/ul (3.5-10.8)
--- NOTE | 2016-10-20 15:00 | ED ---
Zenia Zhao Edward, scribed for Josy Quinn MD on 10/20/16 at 1304 . Shortness of Breath - HPI Summary HPI Summary: 71 y/o female BIBA c/o gradual onset SOB for one week that became worse this morning. Pt has used albuterol inhaler, ipratropium nebs and oxygen to alleviate the SOB this past week. Pt had 1 nebulizer treatment this morning. The symptoms are also alleviated by CPAP at night but not in the morning - pt started using CPAP at 10/14/16 but has now stopped it because when she stops it , it makes her sxs of SOB worse. Pt has increased her oxygen intake this morning from 2L to 5L. Denies fever, CP. Associated sx: productive cough, VARGAS. PMHx COPD getting progressively worse for 3 weeks, Crohn's disease, lung CA R side, PE. SHx ostomy bag. Denies history of PA. Pt is on warfarin. Pt takes tincture of opium drops, not for pain, but to decrease her ostomy output. Pt had been on hospice in past, but not currently. Pt remains a DNR and confirms it with female partner witnessing. - History of Current Complaint Chief Complaint: EDShortnessOfBreath Hx Obtained From: Patient, Family/Leach Cell Operator - female partner is with pt Onset/Duration: Gradual Onset, Lasting Weeks - 1, Still Present, Worse Since - This morning Current Severity: Moderate Dyspnea At: Rest Aggrevating Factors: Deep Breaths Alleviating Factors: Bronchodilators - Albuterol, Oxygen Associated Signs & Symptoms: Cough (Productive) - Risk Factors Pulmonary Embolism: Malignancy, Bedrest, Previous PE Pseudomonas: Chronic Lung Disease Tuberculosis: Corticosteriod Use - Allergy/Home Medications Allergies/Adverse Reactions: Allergies Allergy/AdvReac Type Severity Reaction Status Date / Time Vancomycin Allergy Severe Wheezing Verified 10/18/16 13:39 Daptomycin Allergy See Comment Verified 10/18/16 13:39 Levofloxacin [From Levaquin] Allergy Rash Verified 10/18/16 13:39 Epinephrine AdvReac Severe Incr Verified 10/18/16 13:39 HR/N/V/feels faint Infliximab [From Remicade] AdvReac Severe arm Verified 10/18/16 13:39 swelling/pain/itching Tetanus Toxoid AdvReac Unknown arm Verified 10/18/16 13:39 pain/swelling/itching Doxycycline AdvReac Vomiting Verified 10/18/16 13:39 eggplant Allergy Severe Difficulty Uncoded 10/18/16 13:39 Breathing Home Medications: Home Medications Ipratropium 0.5MG/2.5ML NEB* [Atrovent 0.5 MG NEB.ALFIE*] 0.5 mg INH Q4H PRN 10/20 [History Confirmed 10/20/16] LORazepam TAB(*) [Ativan 1 MG TAB (*)] 0.5 mg PO BID PRN MDD 6 10/20/16 [ History Confirmed 10/20/16] Tiotropium CAP.INH* [Spiriva CAP.INH*] 1 cap.inh INH DAILY 10/20/16 [History Confirmed 10/20/16] predniSONE TAB* [Deltasone TAB*] 5 mg PO DAILY 10/20/16 [History Confirmed 10/20] PMH/Surg Hx/FS Hx/Imm Hx Previously Healthy: No Endocrine/Hematology History: Reports: Hx Anticoagulant Therapy - coumadin Denies: Hx Diabetes Cardiovascular History: Reports: Hx Deep Vein Thrombosis, Hx Embolism - PE, Hx Hypotension, Hx Hypertension, Hx Syncope Denies: Hx Pacemaker/ICD Respiratory History: Reports: Hx Chronic Bronchitis, Hx Chronic Obstructive Pulmonary Disease (COPD), Hx Pulmonary Embolism - 2010, Hx Sleep Apnea, Other Respiratory Problems/Disorders - O2 at home GI History: Reports: Hx Crohn's Disease, Hx Ileostomy, Other GI Disorders - Ileostomy placement History: Reports: Hx Acute Renal Failure, Hx Chronic Renal Failure Denies: Hx Dialysis, Hx Renal Disease Musculoskeletal History: Reports: Hx Back Problems, Hx Osteoporosis, Hx Scoliosis - lumbar disc problems; scoliosis Sensory History: Reports: Hx Cataracts, Hx Contacts or Glasses, Hx Hearing Problem Denies: Hx Hearing Aid Opthamlomology History: Reports: Hx Cataracts, Hx Contacts or Glasses Neurological History: Reports: Hx Nerve Disease - neuropathy, 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 SEVERAL BOWEL RESECTIONS AND FISTULA, [facility] Hx Anesthesia Reactions: Yes - LOW BP - Immunization History Date of Tetanus Vaccine: PT STATES UNSURE Date of Influenza Vaccine: PT STATES UNSURE Infectious Disease History: Yes Infectious Disease History: Reports: Hx of Known/Suspected MRSA Denies: Traveled Outside the [place] in Last 30 Days - Family History Known Family History: Positive: Other - Crohn's Disease - Social History Alcohol Use: Rare Alcohol Amount: 1 Q 2-3 MONTHS Hx Substance Use: No Substance Use Type: Reports: Other Substance Use Comment - Amount & Last Used: prescribed opium Hx Tobacco Use: Yes Smoking Status (MU): Light Every Day Tobacco Smoker Type: Cigarettes Amount Used/How Often: 1-2 cigarettes per day Length of Time of Smoking/Using Tobacco: 53 years Have You Smoked in the Last Year: Yes Review of Systems Constitutional: Negative Eyes: Negative ENT: Negative Cardiovascular: Negative Positive: Shortness Of Breath, Cough - productive Gastrointestinal: Negative Genitourinary: Negative Musculoskeletal: Negative Skin: Negative Positive: Headache Psychological: Normal All Other Systems Reviewed And Are Negative: Yes Physical Exam Triage Information Reviewed: Yes Vital Signs On Initial Exam: Initial Vitals Temp Pulse Resp BP Pulse Ox 98.5 F 105 20 121/55 100 10/20/16 12:43 10/20/16 12:43 10/20/16 12:43 10/20/16 12:43 10/20/16 12:43 Vital Signs Reviewed: Yes Appearance: Positive: No Pain Distress, Well-Nourished, Ill-Appearing Skin: Positive: Warm, Skin Color Reflects Adequate Perfusion Head/Face: Positive: Normal Head/Face Inspection Eyes: Positive: Conjunctiva Clear ENT: Positive: Normal ENT inspection Neck: Positive: Supple Respiratory/Lung Sounds: Positive: Breath Sounds Present, Wheezes - Inspiratory wheezes with every breath in all lung randall Cardiovascular: Positive: RRR, Pulses are Symmetrical in both Upper and Lower Extremities, Other - Brisk capillary refill Abdomen Description: Positive: Nontender, Soft Bowel Sounds: Positive: Present Musculoskeletal: Positive: Strength/ROM Intact, Other - neg Fernando's bilat, neg edema bilat Neurological: Positive: Sensory/Motor Intact, Alert, Oriented to Person Place, Time, Facial Symmetry, Speech Normal Psychiatric: Positive: Normal - Lluvia Coma Scale Coma Scale Total: 15 Diagnostics - Vital Signs Vital Signs Temp Pulse Resp BP Pulse Ox 10/20/16 12:43 98.5 F 105 20 121/55 100 - Laboratory Lab Results: Lab Results 10/20/16 Range/Units 14:30 WBC 10.9 H (3.5-10.8) 10^3/ul RBC 4.42 (4.0-5.4) 10^6/ul Hgb 13.9 (12.0-16.0) g/dl Hct 41 (35-47) % MCV 92 (80-97) fL MCH 31 (27-31) pg MCHC 34 (31-36) g/dl RDW 14 (10.5-15) % Plt Count 249 (150-450) 10^3/ul MPV 8 (7.4-10.4) um3 Absolute Neuts (auto) Pending Absolute Lymphs (auto) Pending Absolute Monos (auto) Pending Absolute Eos (auto) Pending Absolute Basos (auto) Pending Absolute Nucleated RBC Pending Neutrophils % Pending Normal RBC Morphology Pending Hem Pathologist Commnt Pending Result Diagrams: 10/20/16 14:30 10/20/16 14:30 Lab Statement: Any lab studies that have been ordered have been reviewed, and results considered in the medical decision making process. - Radiology CXR Xray Interpretation: No Acute Changes - HYPERINFLATION. NO ACTIVE CARDIOPULMONARY DISEASE. ED PHYSICIAN AGREEABLE Radiology Interpretation Completed By: Radiologist - Additional Comments Diagnostic Additional Comments: EKG @ 12:58 - SINUS RHYTHM @ 61 BPM. Normal AV, IV, and QTc. L axis -17. No STEMI. NSTW Changes. Q wave III is new from 05/13/2016. Course/Dx - Course Assessment/Plan: 71 y/o female BIBA c/o gradual onset SOB for one week that became worse this morning. Pt has used albuterol inhaler(1x emergency), ipratropium nebs and oxygen to alleviate the SOB this past week. Pt had 1 nebulizer treatment this morning. The symptoms are also alleviated by CPAP at night but not in the morning - pt started using CPAP at 10/14/16. Pt has increased her oxygen intake this morning. Denies fever, CP. Associated sx: productive cough, VARGAS. PMHx COPD getting progressively worse for 3 weeks, Crohn' s disease, lung CA R side, PE. SHx ostomy bag. Denies history of PA. Pt is on [place]. EKG @ 12:58 - SINUS RHYTHM @ 61 BPM. Normal AV, IV, and QTc. L axis - 17. No STEMI. NSTW Changes. Q wave III is new from 05/13/2016. TROPONIN 0.09, higher than normal. Dr. Kasper accepted the pt for admission @ 15:57. CXR SHOWS HYPERINFLATION. NO ACTIVE CARDIOPULMONARY DISEASE. - Diagnoses Differential Diagnosis/HQI/PQRI: Positive: Asthma, CHF, COPD Exacerbation, Pneumonia, Pulmonary Embolism Provider Diagnoses: Elevated troponin I level, COPD exacerbation - Physician Notifications Discussed Care of Patient With: Kadi Kasper Time Discussed With Above Provider: 15:57 Instructed by Provider To: Admit As Inpatient - Critical Care Time Critical Care Time: 30-74 min - 30 minutes Discharge - Discharge Plan Condition: Stable Disposition: ADMITTED TO [facility] documentation as recorded by the Zenia ray Edward accurately reflects the service I personally performed and the decisions made by Kai willoughby Barbara J, MD.
[2016-10-20 15:01] LABS: Eosinophils % 2 % (0-6); Neutrophil % 82 % (38-83); RBC Morphology Normal (Normal); Reactive Lymph % 3 % (0-6)
[2016-10-20 15:04] LABS: ALT 23 U/L (7-52); AST 30 U/L (13-39); Albumin 3.7 g/dL (3.2-5.2); Alkaline Phosphatase 53 U/L (34-104); Anion Gap 7 mmol/L (2-11); BUN/Creatinine Ratio 16.3 (8-20); Blood Urea Nitrogen 25 mg/dL (6-24); CO2 Carbon Dioxide 28 mmol/L (22-32); Calcium 8.9 mg/dL (8.6-10.3); Chloride 102 mmol/L (101-111); Creatine Kinase 67 U/L (10-223); EGFR African American 42.8 (>60); EGFR Non-African American 33.3 (>60); Globulin 2.8 g/dL (2-4); Glucose 110 mg/dL (70-100); Potassium 4.3 mmol/L (3.5-5.0); Sodium 137 mmol/L (133-145); Total Protein 6.5 g/dL (6.4-8.9)
[2016-10-20 15:13] LABS: Troponin I 0.09 ng/mL (<0.04)
[2016-10-20] MEDS ORDERED: Iodixanol* (CONTRAST) 320 MG/ML 100 ML SDV IV ONE (15:21)
[2016-10-20 15:31] LABS: C Reactive Protein < 1.00 mg/L (< 5.00)
[2016-10-20] MEDS ORDERED: Enoxaparin(*) 60 MG/0.6 ML SYR SUBCUT ONE (16:05)
[2016-10-20] MEDS ORDERED: Levalbuterol 1.25MG/0.5ML NEB INH PRN (16:05)
[2016-10-20] MEDS ORDERED: Acetaminophen TAB* 325 MG PO PRN (16:05)
[2016-10-20] MEDS ORDERED: Ondansetron INJ* 2 MG/ML VIAL IV PRN (16:05)
[2016-10-20] MEDS ORDERED: guaiFENesin ER TAB 600 MG PO PRN (16:12)
[2016-10-20] MEDS ORDERED: Warfarin TAB(*) 5 MG PO ONE (17:00)
--- NOTE | 2016-10-20 17:20 | RAD ---
HISTORY: Shortness of breath, inspiratory wheezing, lung cancer COMPARISONS: September 19, 2016 VIEWS:1: Single frontal portable view of the chest at 4:51 PM FINDINGS: LINES AND TUBES: None. CARDIOMEDIASTINAL SILHOUETTE: The cardiomediastinal silhouette is normal for portable technique. PLEURA: The costophrenic angles are sharp. No pleural abnormalities are noted. LUNG PARENCHYMA: There is hyperinflation. ABDOMEN: The upper abdomen is clear. There is no subphrenic gas. BONES AND SOFT TISSUES: No bone or soft tissue abnormalities are noted. IMPRESSION: HYPERINFLATION. NO ACTIVE CARDIOPULMONARY DISEASE.
[2016-10-20] MEDS: predniSONE TAB* 20 MG PO SCH (17:52)
[2016-10-20] MEDS: LORazepam TAB(*) 0.5 MG PO PRN ×2 (17:53→23:19)
[2016-10-20] MEDS: Azithromycin IV(*) 500 MG in NS 0.9% 250 ML* 250 ML IVPB SCH (17:55)
[2016-10-20] MEDS: Levalbuterol 1.25MG/0.5ML NEB INH SCH ×2 (18:00→22:47)
[2016-10-20] MEDS: Ipratropium 0.5MG/2.5ML NEB* 0.5 MG/2.5 ML NEB.SOLN INH SCH ×2 (18:00→22:44)
[2016-10-20] MEDS: Opium Tincture* 6 MG/0.6 ML ORAL.LIQ SYRINGE PO SCH ×2 (19:38→23:19)
[2016-10-20 19:56] LABS: Urine Bacteria 1+ (Absent); Urine Bilirubin Negative (Negative); Urine Glucose Negative (Negative); Urine Nitrite Negative (Negative)
[2016-10-20] MEDS: PARoxetine HCL TAB* 20 MG PO SCH (21:25)
[2016-10-20] MEDS: Nicotine Patch Removal NOTE FOLLOW UP SCH (21:46)
[2016-10-20] MEDS: Mometasone/Formoter 200/5 MDI INH SCH (22:49)
[2016-10-21] MEDS: Ipratropium 0.5MG/2.5ML NEB* 0.5 MG/2.5 ML NEB.SOLN INH SCH ×6 (02:46→23:42)
[2016-10-21] MEDS: Levalbuterol 1.25MG/0.5ML NEB INH SCH ×6 (02:48→23:42)
[2016-10-21] MEDS ORDERED: LORazepam INJ* 2 MG/ML 1 ML VIAL IV ONE (03:18)
--- NOTE | 2016-10-21 03:22 | HP ---
CC: Dr. France* HISTORY AND PHYSICAL: DATE OF ADMISSION: 10/20/16 PRIMARY CARE PROVIDER: Dr. France. ATTENDING PHYSICIAN WHILE IN THE HOSPITAL: Dr. Kadi Kasper* (report dictated by Roney Winn NP). CHIEF COMPLAINT: Shortness of breath. HISTORY OF PRESENT ILLNESS: Ms. Tovar is a 71-year-old female patient, who carries a history of COPD; Crohn's; lung cancer; CKD, stage 3; diabetes; PE; restless legs syndrome; anxiety; depression. She came in today saying the last couple of weeks, she has had progressive worsening shortness of breath. It was much worse today with minimal exertion. She was concerned because she had been coughing more, not really productive cough. She stated she has been feeling chilled. No fevers that she knows of. No vomiting and her ostomy output has been at her baseline, has not been any worse or better. She was concerned because of the cough and the fact that she was having more and more shortness of breath, so she decided to come into the ER to be evaluated. She denied having any chest pain. Does state that breathing treatments are making her feel better. She took a breathing treatment at home before coming in. It helped a little while but then shortly thereafter, she was having more shortness of breath. She states that she has not had any recent sick contacts. She denies having any chest pain with taking a deep breath and denied having any rhinorrhea , sore throat, or feeling congested. She came into the ER, she was evaluated and there was concern for COPD exacerbation. We are asked to evaluate for admission. PAST MEDICAL HISTORY: Significant for: 1. COPD. 2. Crohn's. 3. Lung cancer. 4. CKD, stage 3. 5. DVT and PE. 6. Restless legs syndrome. 7. Anxiety. 8. Depression. PAST SURGICAL HISTORY: She has had an ileostomy and colon resection. She has had AV fistulas put in the left upper extremity x3 and they failed and she has had multiple abdominal surgeries related to Crohn's. MEDICATIONS: Home meds according to the list that they provided include: 1. Atrovent 0.5 mg inhaled every 4 hours as needed. 2. Spiriva 1 capsule inhaled daily. 3. B12 1000 mcg IM every 2 weeks. 4. Sensipar 30 mg daily. 5. Calcitriol 0.25 mcg p.o. daily. 6. Aspirin 81 mg daily. 7. Opium tincture 0.6 cc p.o. every 4 hours. 8. Ativan 0.5 mg b.i.d. as needed. 9. Prednisone 5 mg daily. 10. Mucinex 600 mg p.o. b.i.d. as needed. 11. Warfarin 2 mg p.o. daily. 12. Paxil 30 mg p.o. bedtime. ALLERGIES TO MEDICATIONS: Include VANCO, DAPTOMYCIN, LEVAQUIN, EPINEPHRINE, REMICADE, TETANUS, and DOXYCYCLINE. FAMILY HISTORY: The patient had a history of suicidal ideation. The father had a history of heart disease. SOCIAL HISTORY: She does still continue to smoke about a cigarette a day. She was smoking at her peak 3 packs a day. She has been smoking for about 50 plus years. She smokes marijuana occasionally, also ingests marijuana occasionally. She denies any other recreational drugs. Her surrogate decision maker is her significant other, Nikki. REVIEW OF SYSTEMS: There is no documented fever. She denied having any significant weight change. There was no double vision. She denies having any ear discharge. There was no rhinorrhea. There was no sore throat. There was no thyroid enlargement. She denies having any chest pain. There is no orthopnea , but there is dyspnea on exertion. There is no abdominal pain. There was no vomiting. No dysuria, no frequency. No loss of consciousness. No pruritus and no skin ulcerations. Review of 14 systems completed, all others negative. PHYSICAL EXAMINATION GENERAL: Ms. Tovar is a 71-year-old female patient. She is chronically ill appearing. She is sitting in the ER stretcher. She does not appear to be in any acute respiratory distress. VITAL SIGNS: Reveal blood pressure 121/55; pulse 105; respirations 20; O2 sat 100%, she was on 5 L, she is now on 3 L at 95%; her temperature was 98.5. HEENT: Head, atraumatic. Eyes: EOMs intact. Sclerae anicteric. Throat: Oral mucosa appears to be dry. No oropharyngeal erythema. NECK: Supple. LUNGS: She did have rhonchi noted in the left base. She had equal diaphragmatic expansion. HEART: Sounds S1, S2. Regular rate and rhythm. No murmurs, rubs, or gallops. ABDOMEN: Soft. It was flat. It was nontender. She has an ileostomy, which again appeared to be functioning appropriately. EXTREMITIES: Pulses were 2+ throughout. She had no peripheral edema. She is able to move all 4 extremities with 5/5 strength. NEUROLOGIC: The patient is awake, she is alert, and she is oriented x3. No gross focal deficit. SKIN: Grossly intact. DIAGNOSTIC STUDIES/LAB DATA: Today revealed WBC 10.9, RBC of 4.42, hemoglobin 13.9, hematocrit of 41, platelet count of 249. The INR was 1.29, PTT is 32.4. D- dimer less than 200. Sodium 137, potassium of 4.3, chloride 102, bicarb 28, BUN 25, creatinine 1.53, glucose 110, lactate 1.4, calcium 8.9. Total bili 0.5 , AST 30, ALT 23, alk phos 53. CK 67. Troponin was 0.09. CRP less than 1. BNP 60. Serology was negative for flu. She did have an EKG obtained today, which revealed a normal sinus rhythm. No ST elevations or T-wave inversions were noted, rate of 61. Chest x-ray is pending. Old medical records were reviewed. ASSESSMENT AND PLAN: Ms. Tovar is a 71-year-old female patient, coming into the ER today with complaints of progressively worsening shortness of breath. We are asked to evaluate for admission for chronic obstructive pulmonary disease exacerbation. She will be admitted under inpatient status for: 1. Chronic obstructive pulmonary disease exacerbation. At this point, chest x- ray is pending. She does have some rhonchi on exam. I am not going to order Rocephin, I am just going to order azithromycin. If the x-ray does show an infiltrate, probably we will add on Rocephin. I am going to get legionella and Strep pneumo antigen. We will try to get a sputum culture. I have ordered flutter valve for pulmonary toileting. I will put her on Xopenex with Atrovent every 4 hours along with Dulera. I have increased her prednisone to 40. In addition to this, I have also ordered again, like I said, inhaled steroids in the form of Dulera. 2. Elevated troponin. The patient is not having any chest pain. This is probably demand ischemia in the setting of chronic obstructive pulmonary disease exacerbation. We will trend these. If they continue to elevate, we will get Cardiology consult and I will check an echo if they continue to elevate. We will trend them now. 3. Crohn's. Continue with her meds as prescribed. 4. Lung cancer. She should follow up with primary. We are getting a chest x- ray. 5. Chronic kidney disease, stage 3. She is at her baseline creatinine. Continue meds as prescribed. 6. History of deep venous thrombosis, pulmonary embolism. Unfortunately, her INR is only 1.2. I am going to give her one dose of Lovenox now to bridge her and I have increased her Coumadin. We will check her INR tomorrow. I gave her a therapeutic dose. Her GFR is 27, so I gave her 15 mg x1 and that should cover her for 24 hours. We will reevaluate her INR tomorrow after giving her an increased dose of Coumadin tonight. If it is still low, we may need to consider repeating Lovenox tomorrow. 7. History of restless legs syndrome. Continue meds as prescribed. 8. Anxiety and depression. Continue meds as prescribed. 9. DVT prophylaxis. Again, I am ordering SCDs, giving her a shot of Lovenox tonight, and continue the Coumadin. 10. Tobacco abuse. I did order a nicotine patch. 11. Code status. She is a DNR. 12. Fluids, electrolytes, nutrition. She can have a regular diet. TIME SPENT: On the admission is 60 minutes, greater than half the time spent face- to-face with the patient obtaining my history and physical, the other half time was spent going over the plan of care with the patient and implementing plan of care. I did discuss the plan of care with my attending, Dr. Kasper; she is in agreement. RONEY WINN NP [id number]/[facility] #: [id number] ANI
[2016-10-21] MEDS: Opium Tincture* 6 MG/0.6 ML ORAL.LIQ SYRINGE PO SCH ×5 (03:41→21:24)
[2016-10-21 05:08] LABS: Hematocrit 37 % (35-47); Hemoglobin 12.6 g/dl (12.0-16.0); Mean Corpuscular HGB Conc 34 g/dl (31-36); Mean Corpuscular Hemoglobin 32 pg (27-31); Mean Corpuscular Volume 93 fL (80-97); Mean Platelet Volume 8 um3 (7.4-10.4); Red Blood Count 3.95 10^6/ul (4.0-5.4); Red Cell Distribution Width 14 % (10.5-15); White Blood Count 10.7 10^3/ul (3.5-10.8)
[2016-10-21 05:25] LABS: BUN/Creatinine Ratio 14.9 (8-20); Calcium 8.4 mg/dL (8.6-10.3); EGFR African American 40.3 (>60); EGFR Non-African American 31.4 (>60); Potassium 3.8 mmol/L (3.5-5.0)
[2016-10-21] MEDS: Mometasone/Formoter 200/5 MDI INH SCH ×2 (09:03→20:51)
[2016-10-21] MEDS: Aspirin Low Dose CHEW TAB* 81 MG PO SCH (09:44)
[2016-10-21] MEDS: Calcitriol CAP* 0.25 MCG PO SCH (09:44)
[2016-10-21] MEDS: Cinacalcet TAB* 30 MG PO SCH (09:45)
[2016-10-21] MEDS: Nicotine PATCH 7 MG/24 HR* PATCH TRANSDERM SCH (09:45)
[2016-10-21] MEDS: predniSONE TAB* 20 MG PO SCH (09:46)
--- NOTE | 2016-10-21 10:26 | PN ---
Subjective Date of Service: 10/21/16 Interval History: Still has a productive cough, SOB, IBARRA. Headache after using flutter valve. Objective Active Medications: Acetaminophen (Tylenol Tab*) 650 mg PO Q4H PRN PRN Reason: FEVER/PAIN Last Admin: 10/20/16 21:41 Dose: 650 mg Acetaminophen (Tylenol Tab*) 650 mg PO Q4H PRN PRN Reason: PAIN Aspirin (Aspirin Low Dose Tab*) 81 mg PO [facility] Last Admin: 10/21/16 09:44 Dose: 81 mg Calcitriol (Rocaltrol Cap*) [facility] [place] Last Admin: 10/21/16 09:44 Dose: 0.25 mcg Cinacalcet (Sensipar Tab*) 30 mg PO [facility] Last Admin: 10/21/16 09:45 Dose: 30 mg Guaifenesin (Mucinex*) 600 mg PO BID PRN PRN Reason: CONGESTION Azithromycin 500 mg/ Sodium (Chloride) 250 mls @ 250 mls/hr IVPB Q24H [facility] Last Admin: 10/20/16 17:55 Dose: 250 mls/hr Ipratropium [place] (Atrovent 0.5 Mg Neb.Vesna*) 0.5 mg INH Q4H [facility] Last Admin: 10/21/16 09:03 Dose: 0.5 mg Levalbuterol HCl (Xopenex 1.25 Mg/0.5 Ml Neb.Vesna*) 1.25 mg INH Q2H PRN PRN Reason: SOB/WHEEZING Levalbuterol HCl (Xopenex 1.25 Mg/0.5 Ml Neb.Vesna*) 1.25 mg INH Q4H [facility] Last Admin: 10/21/16 09:02 Dose: 1.25 mg Lorazepam (Ativan Tab(*)) 0.5 mg PO BID PRN PRN Reason: ANXIETY Last Admin: 10/20/16 23:19 Dose: 0.5 mg Mometasone Furoate/Formoterol Fumar (Dulera 200/5 Mdi*) 2 puff INH BID [facility] Last Admin: 10/21/16 09:03 Dose: 2 puff Nicotine (Nicotine Patch 7 Mg/24 Hr*) 1 patch TRANSDERM DAILY [facility] Last Admin: 10/21/16 09:45 Dose: 1 patch Ondansetron HCl (Zofran Inj*) 4 mg IV Q6H PRN PRN Reason: NAUSEA Opium Tincture (Opium Tincture*) 6 mg PO Q4H [facility] Last Admin: 10/21/16 09:43 Dose: 6 mg Paroxetine HCl (Paxil Tab*) 30 mg PO BEDTIME [facility] Last Admin: 10/20/16 21:25 Dose: 30 mg Pharmacy Profile Note (Coumadin Per Pharmacy*) 1 note FOLLOW UP .PER PHARMACY PROTOC [facility] PRN Reason: Protocol Pharmacy Profile Note (Nicotine Patch Removal Note*) 1 note FOLLOW UP 2099 [facility] Last Admin: 10/20/16 21:46 Dose: Not Given Prednisone (Deltasone Tab*) 40 mg PO DAILY [facility] Last Admin: 10/21/16 09:46 Dose: 40 mg Prednisone (Deltasone Tab*) 40 mg PO DAILY [facility] Warfarin Sodium (Coumadin Tab(*)) 2.5 mg PO DAILY@1700 [facility] PRN Reason: Protocol Vital Signs 10/20/16 10/20/16 10/20/16 17:36 17:53 18:04 Temperature 98.6 F Pulse Rate 68 74 Respiratory 18 18 22 Rate Blood Pressure 117/57 (mmHg) O2 Sat by Pulse 94 93 Oximetry 10/20/16 10/20/16 10/20/16 19:31 19:38 19:53 Temperature 98.9 F Pulse Rate 90 Respiratory 20 20 20 Rate Blood Pressure 103/54 (mmHg) O2 Sat by Pulse 96 Oximetry 10/20/16 10/20/16 10/20/16 21:38 22:50 22:52 Temperature Pulse Rate 90 Respiratory 18 20 Rate Blood Pressure (mmHg) O2 Sat by Pulse 94 94 Oximetry 10/20/16 10/21/16 10/21/16 23:19 00:51 01:19 Temperature 98.4 F Pulse Rate 92 Respiratory 18 16 20 Rate Blood Pressure 108/51 (mmHg) O2 Sat by Pulse 94 Oximetry 10/21/16 10/21/16 10/21/16 02:48 03:36 03:41 Temperature Pulse Rate 75 Respiratory 20 19 19 Rate Blood Pressure (mmHg) O2 Sat by Pulse 97 Oximetry 10/21/16 10/21/16 10/21/16 04:33 04:36 07:27 Temperature 97.7 F 97.9 F Pulse Rate 96 77 Respiratory 20 15 18 Rate Blood Pressure 134/58 110/43 (mmHg) O2 Sat by Pulse 98 96 Oximetry 10/21/16 10/21/16 10/21/16 09:06 09:07 09:43 Temperature Pulse Rate 79 Respiratory 17 18 Rate Blood Pressure (mmHg) O2 Sat by Pulse 95 95 Oximetry Oxygen Devices in Use Now: Nasal Cannula Appearance: Alert, partly up and on her side in bed. Looks fatigued. No cough during my visit. Eyes: No Scleral Icterus Neck: NL Appearance and Movements; NL JVP, No Thyroid Enlargement, Masses Respiratory: Symmetrical Chest Expansion and Respiratory Effort, Clear to Percussion, - - mild to mod rhonchi all lung randall Cardiovascular: NL Sounds; No Murmurs; No JVD, RRR, No Edema, - Extremities: No Edema, No Clubbing, Cyanosis, - Skin: No Rash or Ulcers, No Nodules or Sclerosis, - Neurological: Alert and Oriented x 3, NL Sensation Result Diagrams: 10/21/16 04:37 10/21/16 04:37 Additional Lab and Data: Lab Results 10/20/16 Range/Units 14:30 WBC 10.9 H (3.5-10.8) 10^3/ul RBC 4.42 (4.0-5.4) 10^6/ul Hgb 13.9 (12.0-16.0) g/dl Hct 41 (35-47) % MCV 92 (80-97) fL MCH 31 (27-31) pg MCHC 34 (31-36) g/dl RDW 14 (10.5-15) % Plt Count 249 (150-450) 10^3/ul MPV 8 (7.4-10.4) um3 Absolute Neuts (auto) Pending Absolute Lymphs (auto) Pending Absolute Monos (auto) Pending Absolute Eos (auto) Pending Absolute Basos (auto) Pending Absolute Nucleated RBC Pending Neutrophils % Pending Normal RBC Morphology Pending Hem Pathologist Commnt Pending Microbiology and Other Data: Microbiology 10/20/16 19:56 Gram Stain - Final Sputum 10/20/16 19:40 Legionella Urinary Antigen - Final Urine Negative Legionella Streptococcus pneumoniae Ag Screen - Final Negative S. pneumo Antigen Assess/Plan/Problems-Billing Assessment: - Patient Problems (1) COPD exacerbation Current Visit: No Status: Acute Code(s): J44.1 - CHRONIC OBSTRUCTIVE PULMONARY DISEASE W (ACUTE) EXACERBATION SNOMED Code(s): 585676316 Comment: Continue azithromycin, resume tiotropium. Continue Prednisone 40 mg daily, note she was on 5 mg maintenance dose at home as well as mometasone/formoterol inhaler. (2) History of pulmonary embolism Current Visit: No Status: Chronic Priority: Medium Code(s): Z86.711 - PERSONAL HISTORY OF PULMONARY EMBOLISM SNOMED Code(s): 442816503 Comment: Recently ate a lot of spinach. Increase warfarin to 2.5 mg daily. Note she received extra 5 mg 10/20. (3) CKD (chronic kidney disease), stage IV Current Visit: No Status: Chronic Code(s): N18.4 - CHRONIC KIDNEY DISEASE, STAGE 4 (SEVERE) SNOMED Code(s): 997617950 Comment: - Creatinine at her baseline (4) Crohn's disease Current Visit: No Status: Chronic Code(s): K50.90 - CROHN'S DISEASE, UNSPECIFIED, WITHOUT COMPLICATIONS SNOMED Code(s): 18757621 Comment: S/P ileostomy. (5) Headache Current Visit: Yes Status: Acute Code(s): R51 - HEADACHE SNOMED Code(s): 56641781 Comment: D/T flutter valve use. APAP ordered as she requested.
[2016-10-21] MEDS: Acetaminophen TAB* 325 MG PO PRN ×3 (10:42→21:29)
[2016-10-21] MEDS: LORazepam TAB(*) 0.5 MG PO PRN ×2 (10:42→21:29)
[2016-10-21] MEDS ORDERED: Spiriva Inhaler DEVICE* 1 EACH DEVICE INH ONE (11:00)
--- NOTE | 2016-10-21 16:27 | ECHO ---
Patient: VIANCA NIELSON Rec#: [id number] : 1945 Date: 10/21/2016 Age: 71y Height: 152.4 cm / 60.0 in Weight: 52.16 kg / 115.0 lbs Sex: F BSA: 1.48 Room#: [facility] Admit Date#: 10/20/2016 Type: Inpatient Referring: Roney Winn NP Reading: Felix Ibrahim MD Mixing Tumbler Operator: Maria Victoria Hair RDCS,RDMS CC: Suzette France MD CC: MIGNON DILL Transthoracic Echocardiogram Indication: SOB BP: 134/58 HR: 75 Rhythm: NSR Findings History: COPD, lung cancer, radiation, CKD, DVT, PE Technical Comments: The study is technically limited due to poor parasternal windows. Left Ventricle: The left ventricular chamber size is normal. Global left ventricular wall motion and contractility are within normal limits. There is normal left ventricular systolic function. The estimated ejection fraction is 60-65%. There is no consistent Doppler evidence of clinically significant diastolic dysfunction. Left Atrium: The left atrial chamber size is normal. Right Ventricle: The right ventricle wall thickness is mildly increased. The right ventricular cavity size is normal. The right ventricular global systolic function is hyperdynamic. Right Atrium: The right atrial cavity size is normal. Aortic Valve: The aortic valve leaflets are mildly thickened. There is aortic annular calcification. There is no evidence of aortic regurgitation. There is no evidence of aortic stenosis. Mitral Valve: The mitral valve leaflets are mildly thickened. There is no evidence of mitral regurgitation. There is no evidence of mitral stenosis. Tricuspid Valve: The tricuspid valve leaflets are normal. There is trace tricuspid regurgitation. Unable to estimate the right ventricular systolic pressure. Pulmonic Valve: The pulmonic valve structure is not well visualized. Pericardium: There is no significant pericardial effusion. Aorta: The ascending aorta is not well visualized. There is no dilatation of the aortic arch. There is no dilation of the aortic root. Pulmonary Artery: The main pulmonary artery is not well visualized. Venous: The inferior vena cava is not visualized. Summary: There are no significant changes when compared to the previous study done on 01/24/11 Conclusions Global left ventricular wall motion and contractility are within normal limits. There is normal left ventricular systolic function. The estimated ejection fraction is 60-65%. There is no evidence of aortic stenosis. There is no evidence of mitral regurgitation. There is trace tricuspid regurgitation. Unable to estimate the right ventricular systolic pressure. There is no significant pericardial effusion. There are no significant changes when compared to the previous study done on 01/24/11 Measurements Name Value Normal Range RVDdMajor (2D) 2.8 cm (2.2 - 4.4) RAd ISD 4CH 4 cm (3.4 - 4.9) RA (A4C)W 2.8 cm (2.9 - 4.6) Aortic Annulus 1.9 cm (1.4 - 2.6) Ao root diameter (2D) 2.6 cm (2.1 - 3.5) Aortic arch 2.8 cm (1.8 - 3.4) LAd ISD 4CH 4.6 cm (2.9 - 5.3) LA ISD 4CH W 3.5 cm (2.5 - 4.5) Name Value Normal Range LA ESV SP 4CH (A/L) 37.61 ml - LA ESV SP 2CH (A/L) 31.83 ml - LA ESV BP (A/L) 34.83 ml - LA ESV BP (A/L) index 23.5 ml/m2 - LA ESV SP 4CH (MOD) 35.67 ml - LA ESV SP 2CH (MOD) 29.44 ml - Name Value Normal Range MV E-wave Vmax 0.9 m/sec - MV deceleration time 165 msec - MV A-wave Vmax 0.8 m/sec - MV E:A ratio 1.1 ratio - P. vein S-wave Vmax 0.6 m/sec - P. vein D-wave Vmax 0.5 m/sec - P. vein S:D Vmax ratio 1.2 ratio - P. vein A-wave duration 133.1 msec - LV lateral e' Vmax 0.1 m/sec - LV E:e' lateral ratio 9 ratio - Name Value Normal Range AV Vmax 1.6 m/sec - AV VTI 32.7 cm - AV peak gradient 10 mmHg - AV mean gradient 5.8 mmHg - LVOT Vmax 1.7 m/sec - LVOT VTI 34.7 cm - LVOT peak gradient 12.7 mmHg - LVOT mean gradient 5.4 mmHg - ADALI Vmax 0.5 m/sec - Name Value Normal Range RAP 8 mmHg - Name Value Normal Range PV Vmax 0.8 m/sec - PV peak gradient 2.6 mmHg -
[2016-10-21] MEDS: Azithromycin IV(*) 500 MG in NS 0.9% 250 ML* 250 ML IVPB SCH (16:50)
[2016-10-21] MEDS ORDERED: Warfarin TAB(*) 2.5 MG PO SCH (17:00)
[2016-10-21] MEDS: Tiotropium CAP.INH* CAP.INH/18 MCG (USE ORDER SET !) INH SCH (17:01)
[2016-10-21] MEDS: PARoxetine HCL TAB* 20 MG PO SCH (21:20)
[2016-10-21] MEDS: Nicotine Patch Removal NOTE FOLLOW UP SCH (21:47)
[2016-10-22] MEDS: Opium Tincture* 6 MG/0.6 ML ORAL.LIQ SYRINGE PO SCH ×7 (00:03→23:45)
[2016-10-22] MEDS: Ipratropium 0.5MG/2.5ML NEB* 0.5 MG/2.5 ML NEB.SOLN INH SCH (02:56)
[2016-10-22] MEDS: Levalbuterol 1.25MG/0.5ML NEB INH SCH ×6 (02:56→23:47)
[2016-10-22] MEDS ORDERED: LORazepam TAB(*) 0.5 MG PO ONE ×3 (04:13→23:57)
[2016-10-22] MEDS: Calcitriol CAP* 0.25 MCG PO SCH (08:09)
[2016-10-22] MEDS: Cinacalcet TAB* 30 MG PO SCH (08:09)
[2016-10-22] MEDS: Nicotine PATCH 7 MG/24 HR* PATCH TRANSDERM SCH (08:09)
[2016-10-22] MEDS: Aspirin Low Dose CHEW TAB* 81 MG PO SCH (08:09)
[2016-10-22] MEDS ORDERED: predniSONE TAB* 20 MG PO SCH (08:30)
[2016-10-22] MEDS ORDERED: predniSONE TAB* 20 MG PO ONE (09:19)
[2016-10-22] MEDS: LORazepam TAB(*) 0.5 MG PO PRN ×2 (09:57→21:21)
[2016-10-22] MEDS ORDERED: guaiFENesin ER TAB 600 MG PO ONE (10:24)
--- NOTE | 2016-10-22 10:27 | PN ---
Subjective Date of Service: 10/22/16 Interval History: No subj change. Objective Active Medications: Acetaminophen (Tylenol Tab*) 650 mg PO Q4H PRN PRN Reason: PAIN Last Admin: 10/21/16 21:29 Dose: 650 mg Aspirin (Aspirin Low Dose Tab*) [facility] [place] Last Admin: 10/22/16 08:09 Dose: 81 mg Calcitriol (Rocaltrol Cap*) 0.25 mcg [facility] [place] Last Admin: 10/22/16 08:09 Dose: 0.25 mcg Cinacalcet (Sensipar Tab*) [facility] [place] Last Admin: 10/22/16 08:09 Dose: 30 mg Guaifenesin (Mucinex*) 600 mg PO BID PRN PRN Reason: CONGESTION Azithromycin 500 mg/ Sodium (Chloride) 250 mls @ 250 mls/hr IVPB Q24H [facility] Last Admin: 10/21/16 16:50 Dose: 250 mls/hr Levalbuterol HCl (Xopenex 1.25 Mg/0.5 Ml Neb.Vesna*) 1.25 mg INH Q2H PRN PRN Reason: SOB/WHEEZING Last Admin: 10/22/16 04:12 Dose: 1.25 mg Levalbuterol HCl (Xopenex 1.25 Mg/0.5 Ml Neb.Vesna*) 1.25 mg INH [id number] AWAKE [facility] Last Admin: 10/22/16 07:33 Dose: Not Given Lorazepam (Ativan Tab(*)) 0.5 mg PO BID PRN PRN Reason: ANXIETY Last Admin: 10/22/16 09:57 Dose: 0.5 mg Mometasone Furoate/Formoterol Fumar (Dulera 200/5 Mdi*) 2 puff INH BID [facility] Last Admin: 10/21/16 20:51 Dose: 2 puff Nicotine (Nicotine Patch 7 Mg/24 Hr*) 1 patch TRANSDERM DAILY [facility] Last Admin: 10/22/16 08:09 Dose: 1 patch Ondansetron HCl (Zofran Inj*) 4 mg IV Q6H PRN PRN Reason: NAUSEA Opium Tincture (Opium Tincture*) 6 mg PO Q4H [facility] Last Admin: 10/22/16 08:12 Dose: 6 mg Paroxetine HCl (Paxil Tab*) 30 mg PO BEDTIME [facility] Last Admin: 10/21/16 21:20 Dose: 30 mg Pharmacy Profile Note (Nicotine Patch Removal Note*) 1 note FOLLOW UP 2100 [facility] Last Admin: 10/21/16 21:47 Dose: 1 note Prednisone (Deltasone Tab*) 60 mg PO DAILY [facility] Tiotropium [place] (Spiriva Cap.Inh*) 1 cap INH DAILY [facility] Last Admin: 10/21/16 17:01 Dose: Not Given Vital Signs 10/21/16 10/21/16 10/21/16 10:42 10:45 11:05 Temperature 97.9 F Pulse Rate 107 Respiratory 19 19 18 Rate Blood Pressure 101/38 (mmHg) O2 Sat by Pulse 91 Oximetry 10/21/16 10/21/16 10/21/16 11:43 12:42 12:45 Temperature Pulse Rate Respiratory 18 18 17 Rate Blood Pressure (mmHg) O2 Sat by Pulse Oximetry 10/21/16 10/21/16 10/21/16 15:05 15:36 16:19 Temperature 98.6 F Pulse Rate 70 88 Respiratory 20 19 18 Rate Blood Pressure 121/49 (mmHg) O2 Sat by Pulse 93 93 Oximetry 10/21/16 10/21/16 10/21/16 17:36 19:35 20:00 Temperature 98.5 F Pulse Rate 76 Respiratory 19 20 20 Rate Blood Pressure 120/65 (mmHg) O2 Sat by Pulse 96 Oximetry 10/21/16 10/21/16 10/21/16 20:54 20:57 21:24 Temperature Pulse Rate 76 Respiratory 20 20 Rate Blood Pressure (mmHg) O2 Sat by Pulse 92 92 Oximetry 10/21/16 10/21/16 10/21/16 21:29 23:24 23:29 Temperature Pulse Rate Respiratory 20 20 20 Rate Blood Pressure (mmHg) O2 Sat by Pulse Oximetry 10/22/16 10/22/16 10/22/16 00:03 00:20 02:03 Temperature 98.6 F Pulse Rate 82 Respiratory 20 20 20 Rate Blood Pressure 122/57 (mmHg) O2 Sat by Pulse 97 Oximetry 10/22/16 10/22/16 10/22/16 03:21 04:00 04:14 Temperature 98.4 F Pulse Rate 73 75 Respiratory 18 20 20 Rate Blood Pressure 117/51 (mmHg) O2 Sat by Pulse 98 99 Oximetry 10/22/16 10/22/16 10/22/16 04:41 06:00 06:41 Temperature Pulse Rate Respiratory 20 20 16 Rate Blood Pressure (mmHg) O2 Sat by Pulse Oximetry 10/22/16 10/22/16 10/22/16 07:39 08:12 09:17 Temperature 97.8 F Pulse Rate 72 Respiratory 16 16 16 Rate Blood Pressure 114/42 (mmHg) O2 Sat by Pulse 96 Oximetry 10/22/16 09:57 Temperature Pulse Rate Respiratory 16 Rate Blood Pressure (mmHg) O2 Sat by Pulse Oximetry Oxygen Devices in Use Now: Nasal Cannula Appearance: Alert, sitting up in bed. Looks discouraged but otherwise comfortable. Eyes: No Scleral Icterus Neck: NL Appearance and Movements; NL JVP, No Thyroid Enlargement, Masses Respiratory: Clear to Percussion, - - mod rhonchi BL Extremities: No Edema, No Clubbing, Cyanosis, - Skin: No Rash or Ulcers, No Nodules or Sclerosis, - Neurological: Alert and Oriented x 3, NL Sensation, NL Gait, NL Muscle Strength and Tone, - Result Diagrams: 10/21/16 04:37 10/21/16 04:37 Additional Lab and Data: Lab Results 10/20/16 Range/Units 14:30 WBC 10.9 H (3.5-10.8) 10^3/ul RBC 4.42 (4.0-5.4) 10^6/ul Hgb 13.9 (12.0-16.0) g/dl Hct 41 (35-47) % MCV 92 (80-97) fL MCH 31 (27-31) pg MCHC 34 (31-36) g/dl RDW 14 (10.5-15) % Plt Count 249 (150-450) 10^3/ul MPV 8 (7.4-10.4) um3 Absolute Neuts (auto) Pending Absolute Lymphs (auto) Pending Absolute Monos (auto) Pending Absolute Eos (auto) Pending Absolute Basos (auto) Pending Absolute Nucleated RBC Pending Neutrophils % Pending Normal RBC Morphology Pending Hem Pathologist Commnt Pending Microbiology and Other Data: Microbiology 10/20/16 19:56 Gram Stain - Final Sputum 10/20/16 19:40 Legionella Urinary Antigen - Final Urine Negative Legionella Streptococcus pneumoniae Ag Screen - Final Negative S. pneumo Antigen Assess/Plan/Problems-Billing Assessment: - Patient Problems (1) COPD exacerbation Current Visit: No Status: Acute Code(s): J44.1 - CHRONIC OBSTRUCTIVE PULMONARY DISEASE W (ACUTE) EXACERBATION SNOMED Code(s): 927061582 Comment: Continue azithromycin, resume tiotropium. Increase Prednisone to 60 mg daily 10/22, note she was on 5 mg maintenance dose at home as well as mometasone/formoterol inhaler. (2) History of pulmonary embolism Current Visit: No Status: Chronic Priority: Medium Code(s): Z86.711 - PERSONAL HISTORY OF PULMONARY EMBOLISM SNOMED Code(s): 020111937 Comment: Recently ate a lot of spinach. Hold warfarin 10/22. INR 10/23. Note she received extra 5 mg 10/20. (3) CKD (chronic kidney disease), stage IV Current Visit: No Status: Chronic Code(s): N18.4 - CHRONIC KIDNEY DISEASE, STAGE 4 (SEVERE) SNOMED Code(s): 660468730 Comment: - Creatinine at her baseline (4) Crohn's disease Current Visit: No Status: Chronic Code(s): K50.90 - CROHN'S DISEASE, UNSPECIFIED, WITHOUT COMPLICATIONS SNOMED Code(s): 27870968 Comment: S/P ileostomy. (5) Headache Current Visit: Yes Status: Acute Code(s): R51 - HEADACHE SNOMED Code(s): 99104091 Comment: D/T flutter valve use. APAP PRN ordered as she requested.
[2016-10-22] MEDS: Mometasone/Formoter 200/5 MDI INH SCH ×2 (11:37→19:51)
[2016-10-22] MEDS: Tiotropium CAP.INH* CAP.INH/18 MCG (USE ORDER SET !) INH SCH (11:37)
[2016-10-22] MEDS: Azithromycin IV(*) 500 MG in NS 0.9% 250 ML* 250 ML IVPB SCH (16:25)
[2016-10-22] MEDS: Acetaminophen TAB* 325 MG PO PRN (21:19)
[2016-10-22] MEDS: guaiFENesin ER TAB 600 MG PO SCH (21:20)
[2016-10-22] MEDS: PARoxetine HCL TAB* 20 MG PO SCH (21:20)
[2016-10-22] MEDS: Nicotine Patch Removal NOTE FOLLOW UP SCH (21:20)
[2016-10-23] MEDS: LORazepam TAB(*) 0.5 MG PO PRN ×3 (00:50→21:28)
[2016-10-23] MEDS: Opium Tincture* 6 MG/0.6 ML ORAL.LIQ SYRINGE PO SCH ×6 (03:38→23:24)
[2016-10-23] MEDS: Levalbuterol 1.25MG/0.5ML NEB INH SCH ×6 (04:04→23:36)
[2016-10-23] MEDS: Mometasone/Formoter 200/5 MDI INH SCH ×2 (07:30→19:48)
[2016-10-23] MEDS: Tiotropium CAP.INH* CAP.INH/18 MCG (USE ORDER SET !) INH SCH (07:30)
[2016-10-23] MEDS: Acetaminophen TAB* 325 MG PO PRN ×2 (07:41→20:44)
[2016-10-23] MEDS: guaiFENesin ER TAB 600 MG PO SCH ×2 (09:16→20:11)
[2016-10-23] MEDS: Aspirin Low Dose CHEW TAB* 81 MG PO SCH (09:16)
[2016-10-23] MEDS: predniSONE TAB* 20 MG PO SCH (09:17)
[2016-10-23] MEDS: Nicotine PATCH 7 MG/24 HR* PATCH TRANSDERM SCH (09:17)
[2016-10-23] MEDS: Cinacalcet TAB* 30 MG PO SCH (09:26)
[2016-10-23] MEDS: Calcitriol CAP* 0.25 MCG PO SCH (09:26)
--- NOTE | 2016-10-23 12:19 | PN ---
Subjective Date of Service: 10/23/16 Interval History: Slightly better today. No more sputum She is tired from frequent neb treatments during the night but does sleep between them. Severe IBARRA still. No new c/o. Objective Active Medications: Acetaminophen (Tylenol Tab*) 650 mg PO Q4H PRN PRN Reason: PAIN Last Admin: 10/23/16 07:41 Dose: 650 mg Aspirin (Aspirin Low Dose Tab*) 81 mg PO QAM [facility] Last Admin: 10/23/16 09:16 Dose: 81 mg Calcitriol (Rocaltrol Cap*) 0.25 mcg PO QAM [facility] Last Admin: 10/23/16 09:26 Dose: 0.25 mcg Cinacalcet (Sensipar Tab*) 30 mg PO QAM [facility] Last Admin: 10/23/16 09:26 Dose: 30 mg Guaifenesin (Mucinex*) 600 mg PO BID [facility] Last Admin: 10/23/16 09:16 Dose: 600 mg Azithromycin 500 mg/ Sodium (Chloride) 250 mls @ 250 mls/hr IVPB Q24H [facility] Last Admin: 10/22/16 16:25 Dose: 250 mls/hr Levalbuterol HCl (Xopenex 1.25 Mg/0.5 Ml Neb.Vesna*) 1.25 mg INH [id number] AWAKE [facility] Last Admin: 10/23/16 11:51 Dose: 1.25 mg Lorazepam (Ativan Tab(*)) 0.5 mg PO BID PRN PRN Reason: ANXIETY Last Admin: 10/23/16 07:41 Dose: 0.5 mg Mometasone Furoate/Formoterol Fumar (Dulera 200/5 Mdi*) 2 puff INH BID [facility] Last Admin: 10/23/16 07:30 Dose: 2 puff Nicotine (Nicotine Patch 7 Mg/24 Hr*) 1 patch TRANSDERM DAILY [facility] Last Admin: 10/23/16 09:17 Dose: 1 patch Ondansetron HCl (Zofran Inj*) 4 mg IV Q6H PRN PRN Reason: NAUSEA Opium Tincture (Opium Tincture*) 6 mg PO Q4H [facility] Last Admin: 10/23/16 11:50 Dose: 6 mg Paroxetine HCl (Paxil Tab*) 30 mg PO BEDTIME [facility] Last Admin: 10/22/16 21:20 Dose: 30 mg Pharmacy Profile Note (Nicotine Patch Removal Note*) 1 note FOLLOW UP 2100 [facility] Last Admin: 10/22/16 21:20 Dose: 1 note Prednisone (Deltasone Tab*) 60 mg PO DAILY [facility] Last Admin: 10/23/16 09:17 Dose: 60 mg Tiotropium [place] (Spiriva Cap.Inh*) 1 cap INH DAILY [facility] Last Admin: 10/23/16 07:30 Dose: 1 cap Vital Signs 10/22/16 10/22/16 10/22/16 12:17 14:17 15:12 Temperature 98.2 F Pulse Rate 68 Respiratory 16 16 18 Rate Blood Pressure 119/50 (mmHg) O2 Sat by Pulse 97 Oximetry 10/22/16 10/22/16 10/22/16 16:25 18:25 19:16 Temperature Pulse Rate Respiratory 18 18 16 Rate Blood Pressure (mmHg) O2 Sat by Pulse Oximetry 10/22/16 10/22/16 10/22/16 19:17 19:53 19:56 Temperature 97.9 F Pulse Rate 76 79 Respiratory 16 20 Rate Blood Pressure 122/54 (mmHg) O2 Sat by Pulse 98 97 98 Oximetry 10/22/16 10/22/16 10/22/16 20:00 21:16 21:21 Temperature Pulse Rate Respiratory 18 18 18 Rate Blood Pressure (mmHg) O2 Sat by Pulse Oximetry 10/22/16 10/22/16 10/22/16 23:21 23:45 23:48 Temperature 98.0 F Pulse Rate 65 Respiratory 18 18 16 Rate Blood Pressure 127/48 (mmHg) O2 Sat by Pulse 98 Oximetry 10/23/16 10/23/16 10/23/16 00:50 01:45 03:38 Temperature Pulse Rate Respiratory 18 20 20 Rate Blood Pressure (mmHg) O2 Sat by Pulse Oximetry 10/23/16 10/23/16 10/23/16 03:43 05:38 07:12 Temperature 97.7 F 97.9 F Pulse Rate 70 57 Respiratory 20 20 18 Rate Blood Pressure 115/52 133/66 (mmHg) O2 Sat by Pulse 98 100 Oximetry 10/23/16 10/23/16 10/23/16 07:33 07:40 07:41 Temperature Pulse Rate 65 Respiratory 18 16 16 Rate Blood Pressure (mmHg) O2 Sat by Pulse 98 Oximetry 10/23/16 10/23/16 10/23/16 09:41 11:50 11:52 Temperature Pulse Rate 68 Respiratory 14 14 14 Rate Blood Pressure (mmHg) O2 Sat by Pulse 98 Oximetry Oxygen Devices in Use Now: Nasal Cannula Appearance: Alert, supine in bed. In fair spirits but looks tired. Eyes: No Scleral Icterus Neck: NL Appearance and Movements; NL JVP, No Thyroid Enlargement, Masses Respiratory: Symmetrical Chest Expansion and Respiratory Effort, Clear to Percussion - mild to mod rhonchi BL Cardiovascular: NL Sounds; No Murmurs; No JVD, RRR, No Edema, - Extremities: No Edema, No Clubbing, Cyanosis, - Skin: No Rash or Ulcers, No Nodules or Sclerosis, - Neurological: Alert and Oriented x 3, NL Sensation Result Diagrams: 10/21/16 04:37 10/21/16 04:37 Additional Lab and Data: Lab Results 10/20/16 Range/Units 14:30 WBC 10.9 H (3.5-10.8) 10^3/ul RBC 4.42 (4.0-5.4) 10^6/ul Hgb 13.9 (12.0-16.0) g/dl Hct 41 (35-47) % MCV 92 (80-97) fL MCH 31 (27-31) pg MCHC 34 (31-36) g/dl RDW 14 (10.5-15) % Plt Count 249 (150-450) 10^3/ul MPV 8 (7.4-10.4) um3 Absolute Neuts (auto) Pending Absolute Lymphs (auto) Pending Absolute Monos (auto) Pending Absolute Eos (auto) Pending Absolute Basos (auto) Pending Absolute Nucleated RBC Pending Neutrophils % Pending Normal RBC Morphology Pending Hem Pathologist Commnt Pending Microbiology and Other Data: Microbiology 10/20/16 19:56 Gram Stain - Final Sputum 10/20/16 19:40 Legionella Urinary Antigen - Final Urine Negative Legionella Streptococcus pneumoniae Ag Screen - Final Negative S. pneumo Antigen Assess/Plan/Problems-Billing Assessment: - Patient Problems (1) COPD exacerbation Current Visit: No Status: Acute Code(s): J44.1 - CHRONIC OBSTRUCTIVE PULMONARY DISEASE W (ACUTE) EXACERBATION SNOMED Code(s): 246066937 Comment: Continue azithromycin, resume tiotropium. Continue Prednisone to 60 mg, note she was on 5 mg maintenance dose at home as well as mometasone/formoterol inhaler. Should get neb tx q 4 hr ATC. (2) History of pulmonary embolism Current Visit: No Status: Chronic Priority: Medium Code(s): Z86.711 - PERSONAL HISTORY OF PULMONARY EMBOLISM SNOMED Code(s): 441160585 Comment: Recently ate a lot of spinach. Hold warfarin starting 10/22. INR . Note she received extra 5 mg of warfarin 10/20. (3) CKD (chronic kidney disease), stage IV Current Visit: No Status: Chronic Code(s): N18.4 - CHRONIC KIDNEY DISEASE, STAGE 4 (SEVERE) SNOMED Code(s): 259471740 Comment: Creatinine at her baseline BMP 10/24. (4) Crohn's disease Current Visit: No Status: Chronic Code(s): K50.90 - CROHN'S DISEASE, UNSPECIFIED, WITHOUT COMPLICATIONS SNOMED Code(s): 12015728 Comment: S/P ileostomy. Continue tincture of opium q 4 hr ATC. (5) Headache Current Visit: Yes Status: Acute Code(s): R51 - HEADACHE SNOMED Code(s): 75670168 Comment: D/T flutter valve use. APAP PRN ordered as she requested.
[2016-10-23] MEDS ORDERED: Cyanocobalamin INJ * 1,000 MCG/ML VIAL 1 ML VIAL IM SCH (18:00)
[2016-10-23] MEDS: PARoxetine HCL TAB* 20 MG PO SCH (19:50)
[2016-10-23] MEDS: Azithromycin IV(*) 500 MG in NS 0.9% 250 ML* 250 ML IVPB SCH (19:52)
[2016-10-23] MEDS: Nicotine Patch Removal NOTE FOLLOW UP SCH (20:47)
[2016-10-24] MEDS: oxyCODONE/Acetamin 5/325 MG* TAB PO PRN (00:02)
[2016-10-24] MEDS: Levalbuterol 1.25MG/0.5ML NEB INH SCH ×6 (03:16→23:11)
[2016-10-24] MEDS: Opium Tincture* 6 MG/0.6 ML ORAL.LIQ SYRINGE PO SCH ×5 (03:22→20:42)
[2016-10-24 06:11] LABS: Comments Flag Yes; Hematocrit 37 % (35-47); Hemoglobin 12.1 g/dl (12.0-16.0); Mean Corpuscular HGB Conc 33 g/dl (31-36); Mean Corpuscular Hemoglobin 31 pg (27-31); Mean Corpuscular Volume 94 fL (80-97); Mean Platelet Volume 8 um3 (7.4-10.4); Red Blood Count 3.96 10^6/ul (4.0-5.4); Red Cell Distribution Width 14 % (10.5-15)
[2016-10-24 06:12] LABS: Add Diff/Slide Review? Slide Review Added
[2016-10-24 06:38] LABS: BUN/Creatinine Ratio 23.3 (8-20); Calcium 8.1 mg/dL (8.6-10.3); EGFR African American 45.2 (>60); EGFR Non-African American 35.1 (>60); Potassium 3.8 mmol/L (3.5-5.0)
[2016-10-24] MEDS: Tiotropium CAP.INH* CAP.INH/18 MCG (USE ORDER SET !) INH SCH (08:31)
[2016-10-24] MEDS: Mometasone/Formoter 200/5 MDI INH SCH ×2 (08:32→20:14)
[2016-10-24] MEDS: predniSONE TAB* 20 MG PO SCH (10:42)
[2016-10-24] MEDS: Calcitriol CAP* 0.25 MCG PO SCH (10:43)
[2016-10-24] MEDS: Cinacalcet TAB* 30 MG PO SCH (10:43)
[2016-10-24] MEDS: guaiFENesin ER TAB 600 MG PO SCH ×2 (10:43→20:42)
[2016-10-24] MEDS: Aspirin Low Dose CHEW TAB* 81 MG PO SCH (10:44)
[2016-10-24] MEDS: Nicotine PATCH 7 MG/24 HR* PATCH TRANSDERM SCH (10:53)
[2016-10-24] MEDS: LORazepam TAB(*) 0.5 MG PO PRN ×2 (12:19→22:03)
[2016-10-24] MEDS: Azithromycin IV(*) 500 MG in NS 0.9% 250 ML* 250 ML IVPB SCH (17:05)
[2016-10-24] MEDS: Acetaminophen TAB* 325 MG PO PRN ×2 (17:09→23:32)
--- NOTE | 2016-10-24 17:48 | PN ---
Subjective Date of Service: 10/24/16 Interval History: Feels worse. Some yellow sputum. Objective Active Medications: Acetaminophen (Tylenol Tab*) 650 mg PO Q4H PRN PRN Reason: PAIN Last Admin: 10/24/16 17:09 Dose: 650 mg Aspirin (Aspirin Low Dose Tab*) 81 mg PO QAM [facility] Last Admin: 10/24/16 10:44 Dose: 81 mg Calcitriol (Rocaltrol Cap*) 0.25 mcg PO QAM [facility] Last Admin: 10/24/16 10:43 Dose: 0.25 mcg Cinacalcet (Sensipar Tab*) 30 mg PO QAM [facility] Last Admin: 10/24/16 10:43 Dose: 30 mg Cyanocobalamin (Vitamin B12 Inj *) 1,000 mcg IM Q14D [facility] Last Admin: 10/23/16 19:51 Dose: 1,000 mcg Guaifenesin (Mucinex*) 600 mg PO BID [facility] Last Admin: 10/24/16 10:43 Dose: 600 mg Azithromycin 500 mg/ Sodium (Chloride) 250 mls @ 250 mls/hr IVPB Q24H [facility] Stop: 10/24/16 23:00 Last Admin: 10/24/16 17:05 Dose: 250 mls/hr Levalbuterol HCl (Xopenex 1.25 Mg/0.5 Ml Neb.Vesna*) 1.25 mg INH [id number] AWAKE [facility] Last Admin: 10/24/16 16:56 Dose: 1.25 mg Lorazepam (Ativan Tab(*)) 0.5 mg PO BID PRN PRN Reason: ANXIETY Last Admin: 10/24/16 12:19 Dose: 0.5 mg Mometasone Furoate/Formoterol Fumar (Dulera 200/5 Mdi*) 2 puff INH BID [facility] Last Admin: 10/24/16 08:32 Dose: 2 puff Nicotine (Nicotine Patch 7 Mg/24 Hr*) 1 patch TRANSDERM DAILY [facility] Last Admin: 10/24/16 10:53 Dose: 1 patch Ondansetron HCl (Zofran Inj*) 4 mg IV Q6H PRN PRN Reason: NAUSEA Opium Tincture (Opium Tincture*) 6 mg PO Q4H [facility] Last Admin: 10/24/16 17:09 Dose: 6 mg Oxycodone/Acetaminophen (Percocet 5/325 Tab*) 1 tab PO Q6H PRN PRN Reason: PAIN Last Admin: 10/24/16 00:02 Dose: 1 tab Paroxetine HCl (Paxil Tab*) 30 mg PO BEDTIME [facility] Last Admin: 10/23/16 19:50 Dose: 30 mg Pharmacy Profile Note (Nicotine Patch Removal Note*) 1 note FOLLOW UP 2100 [facility] Last Admin: 10/23/16 20:47 Dose: 1 note Pharmacy Profile Note (Coumadin Daily Reminder*) 0 note FOLLOW UP 1700 [facility] Last Admin: 10/24/16 17:11 Dose: Not Given Prednisone (Deltasone Tab*) 60 mg PO DAILY [facility] Last Admin: 10/24/16 10:42 Dose: 60 mg Tiotropium [place] (Spiriva Cap.Inh*) 1 cap INH DAILY [facility] Last Admin: 10/24/16 08:31 Dose: 1 cap Vital Signs 10/23/16 10/23/16 10/23/16 19:40 19:49 19:51 Temperature 98.4 F Pulse Rate 78 67 Respiratory 20 20 20 Rate Blood Pressure 135/60 (mmHg) O2 Sat by Pulse 94 97 Oximetry 10/23/16 10/23/16 10/23/16 20:11 21:28 21:51 Temperature Pulse Rate Respiratory 20 20 20 Rate Blood Pressure (mmHg) O2 Sat by Pulse Oximetry 10/23/16 10/23/16 10/23/16 23:20 23:24 23:28 Temperature 98.3 F Pulse Rate 73 Respiratory 20 20 20 Rate Blood Pressure 123/54 (mmHg) O2 Sat by Pulse 91 Oximetry 10/23/16 10/24/16 10/24/16 23:38 00:02 01:24 Temperature Pulse Rate 70 Respiratory 18 20 20 Rate Blood Pressure (mmHg) O2 Sat by Pulse 98 Oximetry 10/24/16 10/24/16 10/24/16 01:33 02:02 03:18 Temperature Pulse Rate 72 Respiratory 20 18 Rate Blood Pressure (mmHg) O2 Sat by Pulse 97 98 Oximetry 10/24/16 10/24/16 10/24/16 03:22 03:26 04:02 Temperature 97.2 F Pulse Rate 109 Respiratory 20 20 20 Rate Blood Pressure 126/84 (mmHg) O2 Sat by Pulse 100 Oximetry 10/24/16 10/24/16 10/24/16 07:33 08:00 08:36 Temperature 98.5 F Pulse Rate 77 68 Respiratory 22 18 14 Rate Blood Pressure 142/63 (mmHg) O2 Sat by Pulse 98 95 Oximetry 10/24/16 10/24/16 10/24/16 09:09 11:06 12:19 Temperature 98.0 F Pulse Rate 66 Respiratory 18 20 22 Rate Blood Pressure 137/52 (mmHg) O2 Sat by Pulse 97 Oximetry 10/24/16 10/24/16 10/24/16 12:45 14:19 16:57 Temperature Pulse Rate 61 68 Respiratory 14 18 18 Rate Blood Pressure (mmHg) O2 Sat by Pulse 98 97 Oximetry 10/24/16 17:09 Temperature Pulse Rate Respiratory 22 Rate Blood Pressure (mmHg) O2 Sat by Pulse Oximetry Oxygen Devices in Use Now: Nasal Cannula Appearance: Partly up in bed. Alert. In fair spirits. Some tachypnea. No cough during my visit. Neck: NL Appearance and Movements; NL JVP, No Thyroid Enlargement, Masses Respiratory: Symmetrical Chest Expansion and Respiratory Effort, Clear to Percussion - Moderate rhonchi BL, possibly worse than yesterday Extremities: No Edema, No Clubbing, Cyanosis, - Skin: No Rash or Ulcers, No Nodules or Sclerosis, - Neurological: Alert and Oriented x 3, NL Sensation Result Diagrams: 10/24/16 05:41 10/24/16 05:41 Additional Lab and Data: Lab Results 10/20/16 Range/Units 14:30 WBC 10.9 H (3.5-10.8) 10^3/ul RBC 4.42 (4.0-5.4) 10^6/ul Hgb 13.9 (12.0-16.0) g/dl Hct 41 (35-47) % MCV 92 (80-97) fL MCH 31 (27-31) pg MCHC 34 (31-36) g/dl RDW 14 (10.5-15) % Plt Count 249 (150-450) 10^3/ul MPV 8 (7.4-10.4) um3 Absolute Neuts (auto) Pending Absolute Lymphs (auto) Pending Absolute Monos (auto) Pending Absolute Eos (auto) Pending Absolute Basos (auto) Pending Absolute Nucleated RBC Pending Neutrophils % Pending Normal RBC Morphology Pending Hem Pathologist Commnt Pending Microbiology and Other Data: Microbiology 10/20/16 19:56 Gram Stain - Final Sputum 10/20/16 19:40 Legionella Urinary Antigen - Final Urine Negative Legionella Streptococcus pneumoniae Ag Screen - Final Negative S. pneumo Antigen Assess/Plan/Problems-Billing Assessment: - Patient Problems (1) COPD exacerbation Current Visit: No Status: Acute Code(s): J44.1 - CHRONIC OBSTRUCTIVE PULMONARY DISEASE W (ACUTE) EXACERBATION SNOMED Code(s): 156930715 Comment: 5th dose of azithromycin 10/24, start pip/luciana 10/24. Continue tiotropium. Continue Prednisone 60 mg, note she was on 5 mg maintenance dose at home as well as mometasone/formoterol inhaler. Should get neb tx q 4 hr ATC. Consult request for Dr. Zuniga. (2) History of pulmonary embolism Current Visit: No Status: Chronic Priority: Medium Code(s): Z86.711 - PERSONAL HISTORY OF PULMONARY EMBOLISM SNOMED Code(s): 927438950 Comment: Recently ate a lot of spinach. Hold warfarin starting 10/22. INR . Note she received extra 5 mg of warfarin 10/20. Continue to hold warfarin in case an invasive procedure is indicated. (3) CKD (chronic kidney disease), stage IV Current Visit: No Status: Chronic Code(s): N18.4 - CHRONIC KIDNEY DISEASE, STAGE 4 (SEVERE) SNOMED Code(s): 959215991 Comment: Creatinine down to 1.46 on 10/24. (4) Crohn's disease Current Visit: No Status: Chronic Code(s): K50.90 - CROHN'S DISEASE, UNSPECIFIED, WITHOUT COMPLICATIONS SNOMED Code(s): 80133649 Comment: S/P ileostomy. Continue tincture of opium q 4 hr ATC. (5) Headache Current Visit: Yes Status: Acute Code(s): R51 - HEADACHE SNOMED Code(s): 22921476 Comment: D/T flutter valve use, now exacerbated by increased cough. APAP PRN ordered as she requested. (6) Lung cancer Current Visit: Yes Status: Acute Code(s): C34.90 - MALIGNANT NEOPLASM OF UNSP PART OF UNSP BRONCHUS OR LUNG SNOMED Code(s): 128408540 Comment: Had gamma knife tx about [address] chest ordered 10/24. (7) Tobacco abuse Current Visit: Yes Status: Acute Code(s): Z72.0 - TOBACCO USE SNOMED Code( s): 058497885 Comment: Continue nicotine patch.
[2016-10-24] MEDS: PARoxetine HCL TAB* 20 MG PO SCH (20:40)
--- NOTE | 2016-10-24 21:53 | RAD ---
Indication: Lung cancer. CT of the chest was performed without IV contrast. Comparison is made with previous exam dated May 03, 2016. Right upper lobe mass is again identified. This is essentially unchanged from previous exam measuring 4.3 x 13 mm. This is likely due to slightly different orientation of the lesion. This extends into the right hilum. Again noted is a mass in the right lower lobe which has increased in size since previous exam. This now measures approximately 12 mm previously measuring 8 x 6 mm. Scarring is noted in the left base with hyperinflated lung randall. Emphysematous changes are noted. There is an enlarged left lobe of the thyroid. This is unchanged from previous exam. The heart demonstrates no pericardial effusion. Mild. Cardiomediastinal thickening is noted. The bony structures demonstrates kyphosis deformity with compression fracture of T6 vertebra. This is likely old. No bony sclerotic or lytic lesions are noted. IMPRESSION: INCREASING SIZE OF THE RIGHT LOWER LOBE NODULE NOW MEASURING 12 MM PREVIOUSLY WITH A MAXIMUM DIMENSION OF 8 MM. RIGHT UPPER LOBE MASS ADJACENT TO THE FISSURE MEASURES APPROXIMATELY 40 3X 3X 13 MM BUT IS LIKELY NOT SIGNIFICANTLY CHANGED IN SIZE OR DUE TO SLIGHTLY DIFFERENT ORIENTATION OF THE LESION. THERE IS LIKELY RIGHT HILAR ADENOPATHY NOTED. NO SUBCARINAL ADENOPATHY IS NOTED. KYPHOSIS DEFORMITY WITH MARKED WEDGE COMPRESSION T6 VERTEB
[2016-10-24] MEDS: Nicotine Patch Removal NOTE FOLLOW UP SCH (22:17)
[2016-10-25] MEDS: Opium Tincture* 6 MG/0.6 ML ORAL.LIQ SYRINGE PO SCH ×6 (00:40→20:17)
[2016-10-25] MEDS ORDERED: LORazepam TAB(*) 0.5 MG PO ONE (00:48)
[2016-10-25] MEDS: Levalbuterol 1.25MG/0.5ML NEB INH SCH ×6 (02:59→22:44)
[2016-10-25] MEDS: Acetaminophen TAB* 325 MG PO PRN ×2 (05:17→21:43)
[2016-10-25] MEDS: Nicotine PATCH 7 MG/24 HR* PATCH TRANSDERM SCH (08:43)
[2016-10-25] MEDS: guaiFENesin ER TAB 600 MG PO SCH ×2 (08:44→20:14)
[2016-10-25] MEDS: predniSONE TAB* 20 MG PO SCH (08:44)
[2016-10-25] MEDS: Aspirin Low Dose CHEW TAB* 81 MG PO SCH (08:44)
[2016-10-25] MEDS: Calcitriol CAP* 0.25 MCG PO SCH (08:45)
[2016-10-25] MEDS: LORazepam TAB(*) 0.5 MG PO PRN (08:50)
[2016-10-25] MEDS ORDERED: LORazepam TAB(*) 0.5 MG PO PRN (09:01)
[2016-10-25] MEDS: predniSONE TAB* 50 MG PO SCH (09:08)
[2016-10-25] MEDS: Cinacalcet TAB* 30 MG PO SCH (09:49)
[2016-10-25] MEDS: Mometasone/Formoter 200/5 MDI INH SCH ×2 (10:09→19:50)
[2016-10-25] MEDS: Tiotropium CAP.INH* CAP.INH/18 MCG (USE ORDER SET !) INH SCH (10:10)
--- NOTE | 2016-10-25 16:16 | PN ---
Subjective Date of Service: 10/25/16 Interval History: Feels better today. Little cough. No new c/o. Objective Active Medications: Acetaminophen (Tylenol Tab*) 650 mg PO Q4H PRN PRN Reason: PAIN Last Admin: 10/25/16 05:17 Dose: 650 mg Aspirin (Aspirin Low Dose Tab*) 81 mg PO QAM [facility] Last Admin: 10/25/16 08:44 Dose: 81 mg Calcitriol (Rocaltrol Cap*) 0.25 mcg PO QAM [facility] Last Admin: 10/25/16 08:45 Dose: 0.25 mcg Cinacalcet (Sensipar Tab*) 30 mg PO QAM [facility] Last Admin: 10/25/16 09:49 Dose: 30 mg Cyanocobalamin (Vitamin B12 Inj *) 1,000 mcg IM Q14D [facility] Last Admin: 10/23/16 19:51 Dose: 1,000 mcg Guaifenesin (Mucinex*) 600 mg PO BID [facility] Last Admin: 10/25/16 08:44 Dose: 600 mg Piperacillin Sod/Tazobactam (Sod 3.375 gm/ Sodium Chloride) 100 mls @ 25 mls/ hr IVPB Q8HR [facility] Last Admin: 10/25/16 13:14 Dose: 25 mls/hr Levalbuterol HCl (Xopenex 1.25 Mg/0.5 Ml Neb.Vesna*) 1.25 mg INH [id number] AWAKE [facility] Last Admin: 10/25/16 14:02 Dose: 1.25 mg Lorazepam (Ativan Tab(*)) 0.5 mg PO 1300 PRN PRN Reason: ANXIETY Lorazepam (Ativan Tab(*)) 0.5 mg PO BID [facility] Mometasone Furoate/Formoterol Fumar (Dulera 200/5 Mdi*) 2 puff INH BID [facility] Last Admin: 10/25/16 10:09 Dose: 2 puff Nicotine (Nicotine Patch 7 Mg/24 Hr*) 1 patch TRANSDERM DAILY [facility] Last Admin: 10/25/16 08:43 Dose: 1 patch Ondansetron HCl (Zofran Inj*) 4 mg IV Q6H PRN PRN Reason: NAUSEA Opium Tincture (Opium Tincture*) 6 mg PO Q4H [facility] Last Admin: 09/01/17 13:14 Dose: 6 mg Oxycodone/Acetaminophen (Percocet 5/325 Tab*) 1 tab PO Q6H PRN PRN Reason: PAIN Last Admin: 10/24/16 00:02 Dose: 1 tab Paroxetine HCl (Paxil Tab*) 30 mg PO BEDTIME [facility] Last Admin: 10/24/16 20:40 Dose: 30 mg Pharmacy Profile Note (Nicotine Patch Removal Note*) 1 note FOLLOW UP 2100 [facility] Last Admin: 10/24/16 22:17 Dose: 1 note Pharmacy Profile Note (Coumadin Daily Reminder*) 0 note FOLLOW UP 1700 [facility] Last Admin: 10/24/16 17:11 Dose: Not Given Prednisone (Deltasone Tab*) 50 mg PO DAILY [facility] Last Admin: 10/25/16 09:08 Dose: Not Given Tiotropium [place] (Spiriva Cap.Inh*) 1 cap INH DAILY [facility] Last Admin: 10/25/16 10:10 Dose: 1 cap Vital Signs 10/24/16 10/24/16 10/24/16 16:57 17:09 19:09 Temperature Pulse Rate 68 Respiratory 18 22 16 Rate Blood Pressure (mmHg) O2 Sat by Pulse 97 Oximetry 10/24/16 10/24/16 10/24/16 19:32 20:00 20:30 Temperature 98.9 F Pulse Rate 73 71 Respiratory 16 16 18 Rate Blood Pressure 130/63 (mmHg) O2 Sat by Pulse 98 97 Oximetry 10/24/16 10/24/16 10/24/16 20:42 22:03 22:42 Temperature Pulse Rate Respiratory 18 18 22 Rate Blood Pressure (mmHg) O2 Sat by Pulse Oximetry 10/24/16 10/25/16 10/25/16 23:16 00:03 00:22 Temperature 98.5 F Pulse Rate 99 80 Respiratory 98 22 22 Rate Blood Pressure 134/62 (mmHg) O2 Sat by Pulse 18 97 Oximetry 10/25/16 10/25/16 10/25/16 00:40 01:16 02:40 Temperature Pulse Rate Respiratory 20 18 18 Rate Blood Pressure (mmHg) O2 Sat by Pulse Oximetry 10/25/16 10/25/16 10/25/16 02:50 03:00 03:16 Temperature 97.8 F Pulse Rate 73 89 Respiratory 20 18 18 Rate Blood Pressure 123/61 (mmHg) O2 Sat by Pulse 95 98 Oximetry 10/25/16 10/25/16 10/25/16 04:59 07:17 08:00 Temperature 98.1 F Pulse Rate 67 Respiratory 24 16 18 Rate Blood Pressure 147/56 (mmHg) O2 Sat by Pulse 97 Oximetry 10/25/16 10/25/16 10/25/16 08:50 10:50 11:39 Temperature 98.3 F Pulse Rate 72 Respiratory 18 16 16 Rate Blood Pressure 131/54 (mmHg) O2 Sat by Pulse 92 Oximetry 10/25/16 10/25/16 13:14 15:14 Temperature Pulse Rate Respiratory 18 18 Rate Blood Pressure (mmHg) O2 Sat by Pulse Oximetry Oxygen Devices in Use Now: Nasal Cannula Appearance: Alert, partly up in bed. In good spirits. Looks comfortable. Eyes: No Scleral Icterus Neck: NL Appearance and Movements; NL JVP, No Thyroid Enlargement, Masses Respiratory: Symmetrical Chest Expansion and Respiratory Effort, Clear to Percussion - Diminished BS BL, no rhonchi Cardiovascular: NL Sounds; No Murmurs; No JVD, RRR, No Edema, - Extremities: No Edema, No Clubbing, Cyanosis, - Skin: No Rash or Ulcers, No Nodules or Sclerosis, - Neurological: Alert and Oriented x 3, NL Sensation Result Diagrams: 10/24/16 05:41 10/24/16 05:41 Additional Lab and Data: Lab Results 10/20/16 Range/Units 14:30 WBC 10.9 H (3.5-10.8) 10^3/ul RBC 4.42 (4.0-5.4) 10^6/ul Hgb 13.9 (12.0-16.0) g/dl Hct 41 (35-47) % MCV 92 (80-97) fL MCH 31 (27-31) pg MCHC 34 (31-36) g/dl RDW 14 (10.5-15) % Plt Count 249 (150-450) 10^3/ul MPV 8 (7.4-10.4) um3 Absolute Neuts (auto) Pending Absolute Lymphs (auto) Pending Absolute Monos (auto) Pending Absolute Eos (auto) Pending Absolute Basos (auto) Pending Absolute Nucleated RBC Pending Neutrophils % Pending Normal RBC Morphology Pending Hem Pathologist Commnt Pending Microbiology and Other Data: Microbiology 10/20/16 19:56 Gram Stain - Final Sputum 10/20/16 19:40 Legionella Urinary Antigen - Final Urine Negative Legionella Streptococcus pneumoniae Ag Screen - Final Negative S. pneumo Antigen Assess/Plan/Problems-Billing Assessment: - Patient Problems (1) COPD exacerbation Current Visit: No Status: Acute Code(s): J44.1 - CHRONIC OBSTRUCTIVE PULMONARY DISEASE W (ACUTE) EXACERBATION SNOMED Code(s): 852728116 Comment: Striking improvement in chest exam since starting pip/luciana 10/24. Plan a few more days of pip/luciana, then consider d/c on amox/clav, start to taper prednisone 10/26. Pt state she gets agitated/manic when the taper gets to about 20 mg daily. (2) History of pulmonary embolism Current Visit: No Status: Chronic Priority: Medium Code(s): Z86.711 - PERSONAL HISTORY OF PULMONARY EMBOLISM SNOMED Code(s): 677215955 Comment: Recently ate a lot of spinach. Hold warfarin starting 10/22. INR down to 2.82. Note she received extra 5 mg of warfarin 10/20. Continue to hold warfarin in case an invasive procedure is indicated. (3) CKD (chronic kidney disease), stage IV Current Visit: No Status: Chronic Code(s): N18.4 - CHRONIC KIDNEY DISEASE, STAGE 4 (SEVERE) SNOMED Code(s): 439195741 Comment: Creatinine down to 1.46 on 10/24. (4) Crohn's disease Current Visit: No Status: Chronic Code(s): K50.90 - CROHN'S DISEASE, UNSPECIFIED, WITHOUT COMPLICATIONS SNOMED Code(s): 23168626 Comment: S/P ileostomy. Continue tincture of opium q 4 hr ATC. (5) Headache Current Visit: Yes Status: Acute Code(s): R51 - HEADACHE SNOMED Code(s): 88862513 Comment: D/T flutter valve use, now exacerbated by increased cough. APAP PRN ordered as she requested. (6) Lung cancer Current Visit: Yes Status: Acute Code(s): C34.90 - MALIGNANT NEOPLASM OF UNSP PART OF UNSP BRONCHUS OR LUNG SNOMED Code(s): 408593628 Comment: Had gamma knife tx about [address] 10/24 show 2 small nodules , one sl large than 05/10, one abou the same size. (7) Tobacco abuse Current Visit: Yes Status: Acute Code(s): Z72.0 - TOBACCO USE SNOMED Code( s): 482841717 Comment: Continue nicotine patch.
[2016-10-25] MEDS: LORazepam TAB(*) 0.5 MG PO SCH (20:14)
[2016-10-25] MEDS: PARoxetine HCL TAB* 20 MG PO SCH (20:15)
[2016-10-25] MEDS: Nicotine Patch Removal NOTE FOLLOW UP SCH (20:20)
[2016-10-26] MEDS: Opium Tincture* 6 MG/0.6 ML ORAL.LIQ SYRINGE PO SCH ×7 (00:42→20:49)
--- NOTE | 2016-10-26 00:52 | CONS ---
PULMONARY CONSULTATION REPORT: DATE OF CONSULTATION: 10/25/16 CONSULTATION REQUESTED BY: Jovan Felder MD REASON FOR CONSULTATION: Evaluation of COPD exacerbation. HISTORY OF PRESENT ILLNESS: The patient is a 71-year-old female with severe COPD known to me from outpatient and inpatient evaluation in the past. The patient has severe COPD, significant smoking history, also has been smoking intermittently recently, history of Crohn's disease with high output ileostomy, lung cancer, chronic kidney disease stage 3, diabetes, PE, restless leg syndrome , anxiety, and depression. The patient came into the emergency room for evaluation of worsening shortness of breath, the patient was seen recently by me in outpatient clinic. She is on chronic prednisone therapy. She was also diagnosed with sleep apnea recently and was initiated on auto CPAP. She did not qualify for Trilogy. The patient reports worsening shortness of breath and productive cough. Her cough has turned more yellow since admission. The patient denies any sick contacts or recent travel. The patient's breathing treatments at home did not help and she decided to come into the emergency room for further evaluation. She was seen and examined at bedside by me today. The patient reported slight improvement in her breathing. She is coughing up more and bringing more phlegm. The patient also reports significant anxiety and has requested increasing dose of her lorazepam. The patient also is concerned about her CT scan. The patient has known history of lung cancer, underwent stereotactic radiation. The patient was found to have recurrence and opted to just watch without considering treatment. She was following up with cancer specialist at [place]. The patient is currently on broad-spectrum antibiotics. She was started on Zithromax and Zosyn was added yesterday. Sputum culture grew yeast and normal ari. Legionella and Strep pneumo antigen have been negative. Blood pressures have been negative. She is requiring O2 supplementation at 3 L per minute at rest, which is her home requirement. PAST MEDICAL HISTORY: 1. COPD, on home O2 and chronic prednisone dependent with multiple exacerbations. 2. Crohn's disease, status post high output ileostomy. 3. Lung caner. 4. Chronic kidney disease stage 3. 5. DVT, PE. 6. Restless leg syndrome. 7. Anxiety. 8. Depression. PAST SURGICAL HISTORY: 1. Ileostomy. 2. Colon resection. 3. 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 4. Multiple abdominal surgeries related to Crohn's. MEDICATIONS: 1. Atrovent. 2. Spiriva. 3. B12. 4. Sensipar. 5. Calcitriol. 6. Aspirin. 7. Opium tincture. 8. Ativan. 9. Prednisone. 10. Mucinex. 11. Warfarin. 12. Paxil. ALLERGIES: VANCO, DAPTOMYCIN, LEVAQUIN, EPINEPHRINE, REMICADE, TETANUS, and DOXYCYCLINE. FAMILY HISTORY: Suicidal ideation, heart disease in father. SOCIAL HISTORY: Continues to smoke a cigarette a day, was smoking 3 packs for 50 plus years, smokes marijuana occasionally, also ingests marijuana occasionally. Denies any other recreational drugs. Her healthcare proxy is her significant other, Nikki. REVIEW OF SYSTEMS: All 14 systems reviewed and as per HPI. PHYSICAL EXAMINATION: Vital Signs: Temperature 98.3, heart rate 72 beats per minute, respiratory rate 18 per minute, O2 sat 92% on 3 L, blood pressure 131/ 54. HEENT: Pupils are equal and reactive to light, mucous membranes moist, sclerae anicteric. Neck: Supple. Lungs: Rhonchi bilaterally. Cardiovascular : S1, S2 present. Regular rate and rhythm. No murmurs, gallops, or rubs. Abdominal: Soft, nontender, nondistended. Bowel sounds present. Ileostomy present. Extremities: 2+ pulses, moves all extremities. Neurologic: No focal deficits. Skin: No rash. LABORATORY DATA: WBC 12, hemoglobin 12.1, hematocrit 37, platelet count 242. Sodium 138, potassium 3.8, chloride 105, bicarb 24, BUN 34, creatinine 1.46. Influenza A and B negative. Microbiological cultures as described above in HPI. CT of chest was personally reviewed by me: Right upper lobe mass unchanged from previous exam measuring 4.3 x 13 mm and extends into the right hilum. The patient also noted to have right lower lobe 12 mm nodule, which is slightly increased in size. Evidence of emphysematous changes bilaterally. Enlarged left lobe of thyroid. IMPRESSION AND RECOMMENDATIONS: 71-year-old female with severe chronic obstructive pulmonary disease admitted with worsening shortness of breath being treated for acute chronic obstructive pulmonary disease exacerbation and possible pneumonia. 1. Acute chronic obstructive pulmonary disease exacerbation. 2. Bacterial pneumonia with possibility for pseudomonas. Agree with current management of chronic obstructive pulmonary disease. The patient with slight improvement in shortness of breath. Continue with CPAP at night. Continue with O2 supplementation. Continue with nebs q.[address] does show increase in size of right lower lobe lesion, which is being watched. The patient would want to see Oncology locally, will refer to Oncology as outpatient. Physical therapy. Overall prognosis is poor. Thank you for allowing me to participate in Ms. Tovar's care. [id number]/[facility] #: [id number] MTDD
[2016-10-26] MEDS: Levalbuterol 1.25MG/0.5ML NEB INH SCH ×6 (03:44→23:41)
[2016-10-26] MEDS: Acetaminophen TAB* 325 MG PO PRN ×2 (06:10→19:19)
[2016-10-26] MEDS: Nicotine PATCH 7 MG/24 HR* PATCH TRANSDERM SCH (11:01)
[2016-10-26] MEDS: Calcitriol CAP* 0.25 MCG PO SCH (11:01)
[2016-10-26] MEDS: Aspirin Low Dose CHEW TAB* 81 MG PO SCH (11:02)
[2016-10-26] MEDS: guaiFENesin ER TAB 600 MG PO SCH ×2 (11:02→20:48)
[2016-10-26] MEDS: predniSONE TAB* 50 MG PO SCH (11:02)
[2016-10-26] MEDS: LORazepam TAB(*) 0.5 MG PO SCH ×2 (11:02→20:48)
[2016-10-26] MEDS: Cinacalcet TAB* 30 MG PO SCH (11:02)
[2016-10-26] MEDS: Mometasone/Formoter 200/5 MDI INH SCH ×2 (11:41→20:17)
[2016-10-26] MEDS: Tiotropium CAP.INH* CAP.INH/18 MCG (USE ORDER SET !) INH SCH (11:41)
--- NOTE | 2016-10-26 12:52 | PN ---
Subjective Date of Service: 10/26/16 Interval History: Breathing continues to improve since addition of zosyn. Anxious about discharge/ disease. Wanting additional ativan prn available if necessary after exertion getting out of bed to change her ostomy bag. Yellow sputum. Objective Active Medications: Acetaminophen (Tylenol Tab*) 650 mg PO Q4H PRN PRN Reason: PAIN Last Admin: 10/26/16 06:10 Dose: 650 mg Aspirin (Aspirin Low Dose Tab*) [facility] [place] Admin: 10/26/16 11:02 Dose: 81 mg Calcitriol (Rocaltrol Cap*) 0.25 mcg PO QAM [facility] Last Admin: 10/26/16 11:01 Dose: 0.25 mcg Cinacalcet (Sensipar Tab*) 30 mg PO [facility] Last Admin: 10/26/16 11:02 Dose: 30 mg Cyanocobalamin (Vitamin B12 Inj *) 1,000 mcg IM Q14D [facility] Last Admin: 10/23/16 19:51 Dose: 1,000 mcg Guaifenesin (Mucinex*) 600 mg PO BID [facility] Last Admin: 10/26/16 11:02 Dose: 600 mg Piperacillin Sod/Tazobactam (Sod 3.375 gm/ Sodium Chloride) 100 mls @ 25 mls/ hr IVPB Q8HR [facility] Last Admin: 10/26/16 06:11 Dose: 25 mls/hr Levalbuterol HCl (Xopenex 1.25 Mg/0.5 Ml Neb.Vesna*) 1.25 mg INH [id number] AWAKE [facility] Last Admin: 10/26/16 11:39 Dose: 1.25 mg Lorazepam (Ativan Tab(*)) 0.5 mg PO BID [facility] Last Admin: 10/26/16 11:02 Dose: 0.5 mg Mometasone Furoate/Formoterol Fumar (Dulera 200/5 Mdi*) 2 puff INH BID [facility] Last Admin: 10/26/16 11:41 Dose: 2 puff Nicotine (Nicotine Patch 7 Mg/24 Hr*) 1 patch TRANSDERM DAILY [facility] Last Admin: 10/26/16 11:01 Dose: 1 patch Ondansetron HCl (Zofran Inj*) 4 mg IV Q6H PRN PRN Reason: NAUSEA Opium Tincture (Opium Tincture*) 6 mg PO Q4H [facility] Last Admin: 10/26/16 11:00 Dose: 6 mg Oxycodone/Acetaminophen (Percocet 5/325 Tab*) 1 tab PO Q6H PRN PRN Reason: PAIN Last Admin: 10/24/16 00:02 Dose: 1 tab Paroxetine HCl (Paxil Tab*) 30 mg PO BEDTIME [facility] Last Admin: 10/25/16 20:15 Dose: 30 mg Pharmacy Profile Note (Nicotine Patch Removal Note*) 1 note FOLLOW UP 2100 [facility] Last Admin: 10/25/16 20:20 Dose: 1 note Prednisone (Deltasone Tab*) 50 mg PO DAILY [facility] Last Admin: 10/26/16 11:02 Dose: 50 mg Tiotropium [place] (Spiriva Cap.Inh*) 1 cap INH DAILY [facility] Last Admin: 10/26/16 11:41 Dose: 1 cap Vital Signs 10/25/16 10/25/16 10/25/16 13:14 15:14 15:47 Temperature 98.1 F Pulse Rate 79 Respiratory 18 18 16 Rate Blood Pressure 133/62 (mmHg) O2 Sat by Pulse 100 Oximetry 10/25/16 10/25/16 10/25/16 17:31 18:33 19:31 Temperature Pulse Rate 3 Respiratory 18 21 Rate Blood Pressure (mmHg) O2 Sat by Pulse Oximetry 10/25/16 10/25/16 10/25/16 19:45 20:00 20:09 Temperature 98.2 F Pulse Rate 84 84 Respiratory 18 19 20 Rate Blood Pressure 110/62 (mmHg) O2 Sat by Pulse 98 98 Oximetry 10/25/16 10/25/16 10/25/16 20:14 20:17 22:13 Temperature Pulse Rate Respiratory 20 20 17 Rate Blood Pressure (mmHg) O2 Sat by Pulse Oximetry 10/25/16 10/25/16 10/25/16 22:17 22:47 23:14 Temperature Pulse Rate Respiratory 18 18 20 Rate Blood Pressure (mmHg) O2 Sat by Pulse 98 Oximetry 10/25/16 10/26/16 10/26/16 23:29 00:42 01:14 Temperature 98.1 F Pulse Rate 86 Respiratory 20 19 20 Rate Blood Pressure 146/55 (mmHg) O2 Sat by Pulse 99 Oximetry 10/26/16 10/26/16 10/26/16 02:42 03:41 05:45 Temperature 97.8 F Pulse Rate 69 Respiratory 20 20 19 Rate Blood Pressure 134/68 (mmHg) O2 Sat by Pulse 97 Oximetry 10/26/16 10/26/16 10/26/16 07:31 11:00 11:02 Temperature 97.7 F Pulse Rate 60 Respiratory 21 16 18 Rate Blood Pressure 147/70 (mmHg) O2 Sat by Pulse 98 Oximetry 10/26/16 11:43 Temperature Pulse Rate 70 Respiratory 16 Rate Blood Pressure (mmHg) O2 Sat by Pulse 97 Oximetry Oxygen Devices in Use Now: Nasal Cannula Eyes: No Scleral Icterus, PERRLA Ears/Nose/Mouth/Throat: Mucous Membranes Moist Neck: NL Appearance and Movements; NL JVP Respiratory: - - Expiratory wheezing and diffuse rhonchi. Decent air exchange Cardiovascular: NL Sounds; No Murmurs; No JVD Abdominal: NL Sounds; No Tenderness; No Distention, - - ostomy Extremities: No Edema, No Clubbing, Cyanosis Skin: No Rash or Ulcers Neurological: Alert and Oriented x 3, NL Sensation, NL Muscle Strength and Tone Nutrition: Taking PO's Result Diagrams: 10/24/16 05:41 10/24/16 05:41 Additional Lab and Data: Lab Results 10/20/16 Range/Units 14:30 WBC 10.9 H (3.5-10.8) 10^3/ul RBC 4.42 (4.0-5.4) 10^6/ul Hgb 13.9 (12.0-16.0) g/dl Hct 41 (35-47) % MCV 92 (80-97) fL MCH 31 (27-31) pg MCHC 34 (31-36) g/dl RDW 14 (10.5-15) % Plt Count 249 (150-450) 10^3/ul MPV 8 (7.4-10.4) um3 Absolute Neuts (auto) Pending Absolute Lymphs (auto) Pending Absolute Monos (auto) Pending Absolute Eos (auto) Pending Absolute Basos (auto) Pending Absolute Nucleated RBC Pending Neutrophils % Pending Normal RBC Morphology Pending Hem Pathologist Commnt Pending Microbiology and Other Data: Microbiology 10/20/16 19:56 Gram Stain - Final Sputum 10/20/16 19:40 Legionella Urinary Antigen - Final Urine Negative Legionella Streptococcus pneumoniae Ag Screen - Final Negative S. pneumo Antigen Assess/Plan/Problems-Billing Assessment: 71 year old PMH severe COPD (on home 3L), GABBY (CPAP), anxiety, depression, lung cancer s/p sterotaxtic radiation with likely recurrence p/w SOB likely 2/2 COPD exaccerbation. - Patient Problems (1) COPD exacerbation Current Visit: Yes Status: Acute Priority: High Code(s): J44.1 - CHRONIC OBSTRUCTIVE PULMONARY DISEASE W (ACUTE) EXACERBATION SNOMED Code(s): 266243024 Comment: Feels much better since starting pip/luciana 10/24 PM. No bacterial growth on sputum culture but given clinical improvement continue current zosyn. Consider d/c on amox/clav. Taper prednisone to 50mg today. Continue mometasone/ formoterol, tiotropium, nebs. Appreciate Dr. Efrain shah. (2) Lung cancer Current Visit: Yes Status: Acute Code(s): C34.90 - MALIGNANT NEOPLASM OF UNSP PART OF UNSP BRONCHUS OR LUNG SNOMED Code(s): 331740578 Comment: Likely recurrence based off new nodules. Needs outpatient f/u with new local oncologist as can't travel to [place] consistently. (3) Anxiety Current Visit: Yes Status: Acute Code(s): F41.9 - ANXIETY DISORDER, UNSPECIFIED SNOMED Code(s): 33737936 Comment: Continue 0.5mg ativan BID with additional breakthrough prn with panic attacks after she changes ostomy (4) Tobacco abuse Current Visit: Yes Status: Acute Code(s): Z72.0 - TOBACCO USE SNOMED Code( s): 101667719 Comment: Continue nicotine patch. 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 (6) Depression Current Visit: Yes Status: Chronic Priority: Medium Code(s): F32.9 - MAJOR DEPRESSIVE DISORDER, SINGLE EPISODE, UNSPECIFIED SNOMED Code(s): 45270521 Comment: - Continue Paxil Status and Disposition: inpatient, anticipated discharge 10/29 once VNS and health aides can be arranged. Attending: Crispin Phillip
[2016-10-26] MEDS: LORazepam TAB(*) 0.5 MG PO PRN (18:06)
[2016-10-26] MEDS: PARoxetine HCL TAB* 20 MG PO SCH (20:48)
[2016-10-26] MEDS: Nicotine Patch Removal NOTE FOLLOW UP SCH (20:51)
[2016-10-27] MEDS: Opium Tincture* 6 MG/0.6 ML ORAL.LIQ SYRINGE PO SCH ×6 (01:23→20:49)
[2016-10-27] MEDS: LORazepam TAB(*) 0.5 MG PO PRN (01:24)
[2016-10-27] MEDS: Levalbuterol 1.25MG/0.5ML NEB INH SCH ×2 (03:33→12:16)
[2016-10-27 07:06] LABS: Calcium 7.5 mg/dL (8.6-10.3); EGFR African American 38.4 (>60); EGFR Non-African American 29.9 (>60); Potassium 3.8 mmol/L (3.5-5.0)
[2016-10-27] MEDS: Aspirin Low Dose CHEW TAB* 81 MG PO SCH (08:09)
[2016-10-27] MEDS: predniSONE TAB* 50 MG PO SCH (08:09)
[2016-10-27] MEDS: guaiFENesin ER TAB 600 MG PO SCH ×2 (08:09→20:50)
[2016-10-27] MEDS: Calcitriol CAP* 0.25 MCG PO SCH (08:09)
[2016-10-27] MEDS: Cinacalcet TAB* 30 MG PO SCH (08:09)
[2016-10-27] MEDS: Nicotine PATCH 7 MG/24 HR* PATCH TRANSDERM SCH (08:10)
[2016-10-27] MEDS: LORazepam TAB(*) 0.5 MG PO SCH ×2 (08:10→20:51)
[2016-10-27] MEDS: Tiotropium CAP.INH* CAP.INH/18 MCG (USE ORDER SET !) INH SCH (08:24)
[2016-10-27] MEDS: Mometasone/Formoter 200/5 MDI INH SCH ×2 (08:24→19:37)
[2016-10-27] MEDS: Acetaminophen TAB* 325 MG PO PRN (13:52)
--- NOTE | 2016-10-27 14:10 | PN ---
Subjective Date of Service: 10/27/16 Interval History: Continued improvement in breathing. Less cough but more productive. Feeling better. Night owl, went to bed 4am and slept most of morning. Objective Active Medications: Acetaminophen (Tylenol Tab*) 650 mg PO Q4H PRN PRN Reason: PAIN Last Admin: 10/27/16 13:52 Dose: 650 mg Aspirin (Aspirin Low Dose Tab*) 81 mg PO QAM [facility] Last Admin: 10/27/16 08:09 Dose: 81 mg Calcitriol (Rocaltrol Cap*) 0.25 mcg PO QAM [facility] Last Admin: 10/27/16 08:09 Dose: 0.25 mcg Cinacalcet (Sensipar Tab*) 30 mg PO QAM [facility] Last Admin: 10/27/16 08:09 Dose: 30 mg Cyanocobalamin (Vitamin B12 Inj *) 1,000 mcg IM Q14D [facility] Last Admin: 10/23/16 19:51 Dose: 1,000 mcg Guaifenesin (Mucinex*) 600 mg PO BID [facility] Last Admin: 10/27/16 08:09 Dose: 600 mg Piperacillin Sod/Tazobactam (Sod 3.375 gm/ Sodium Chloride) 100 mls @ 25 mls/ hr IVPB Q8HR [facility] Last Admin: 10/27/16 13:47 Dose: 25 mls/hr Levalbuterol HCl (Xopenex 1.25 Mg/0.5 Ml Neb.Vesna*) 1.25 mg INH Q6H PRN PRN Reason: SOB/WHEEZING Lorazepam (Ativan Tab(*)) 0.5 mg PO BID [facility] Last Admin: 10/27/16 08:10 Dose: 0.5 mg Lorazepam (Ativan Tab(*)) 0.5 mg PO Q2H PRN PRN Reason: ANXIETY Last Admin: 10/27/16 01:24 Dose: 0.5 mg Mometasone Furoate/Formoterol Fumar (Dulera 200/5 Mdi*) 2 puff INH BID [facility] Last Admin: 10/27/16 08:24 Dose: 2 puff Nicotine (Nicotine Patch 7 Mg/24 Hr*) 1 patch TRANSDERM DAILY [facility] Last Admin: 10/27/16 08:10 Dose: 1 patch Ondansetron HCl (Zofran Inj*) 4 mg IV Q6H PRN PRN Reason: NAUSEA Opium Tincture (Opium Tincture*) 6 mg PO Q4H [facility] Last Admin: 10/27/16 13:47 Dose: 6 mg Oxycodone/Acetaminophen (Percocet 5/325 Tab*) 1 tab PO Q6H PRN PRN Reason: PAIN Last Admin: 10/24/16 00:02 Dose: 1 tab Paroxetine HCl (Paxil Tab*) 30 mg PO BEDTIME [facility] Last Admin: 10/26/16 20:48 Dose: 30 mg Pharmacy Profile Note (Nicotine Patch Removal Note*) 1 note FOLLOW UP 2100 [facility] Last Admin: 10/26/16 20:51 Dose: 1 note Prednisone (Deltasone Tab*) 50 mg PO DAILY [facility] Last Admin: 10/27/16 08:09 Dose: 50 mg Tiotropium [place] (Spiriva Cap.Inh*) 1 cap INH DAILY [facility] Last Admin: 10/27/16 08:24 Dose: 1 cap Warfarin Sodium (Coumadin Tab(*)) 2 mg PO DAILY@1700 [facility] PRN Reason: Protocol Vital Signs 10/26/16 10/26/16 10/26/16 15:15 16:00 16:17 Temperature 98.9 F Pulse Rate 77 Respiratory 14 22 Rate Blood Pressure 147/65 (mmHg) O2 Sat by Pulse 98 Oximetry 10/26/16 10/26/16 10/26/16 18:00 18:06 19:29 Temperature 97.6 F Pulse Rate 73 Respiratory 22 14 22 Rate Blood Pressure 138/57 (mmHg) O2 Sat by Pulse 98 Oximetry 10/26/16 10/26/16 10/26/16 20:00 20:06 20:18 Temperature Pulse Rate 74 Respiratory 20 20 18 Rate Blood Pressure (mmHg) O2 Sat by Pulse 99 Oximetry 10/26/16 10/26/16 10/26/16 20:48 20:49 22:48 Temperature Pulse Rate Respiratory 18 18 18 Rate Blood Pressure (mmHg) O2 Sat by Pulse Oximetry 10/26/16 10/26/16 10/26/16 22:49 23:48 23:58 Temperature 97.9 F Pulse Rate 71 67 Respiratory 18 16 18 Rate Blood Pressure 124/58 (mmHg) O2 Sat by Pulse 97 98 Oximetry 10/27/16 10/27/16 10/27/16 01:23 01:24 02:58 Temperature 98.2 F Pulse Rate 62 Respiratory 20 20 18 Rate Blood Pressure 122/51 (mmHg) O2 Sat by Pulse 100 Oximetry 10/27/16 10/27/16 10/27/16 03:23 03:24 05:18 Temperature Pulse Rate Respiratory 18 18 19 Rate Blood Pressure (mmHg) O2 Sat by Pulse Oximetry 10/27/16 10/27/16 10/27/16 08:00 08:04 08:10 Temperature Pulse Rate 62 Respiratory 18 18 18 Rate Blood Pressure (mmHg) O2 Sat by Pulse 100 Oximetry 10/27/16 10/27/16 10/27/16 08:15 08:28 08:29 Temperature 97.7 F Pulse Rate 62 59 Respiratory 18 18 Rate Blood Pressure 156/67 (mmHg) O2 Sat by Pulse 100 100 100 Oximetry 10/27/16 10/27/16 10:10 13:47 Temperature Pulse Rate Respiratory 18 18 Rate Blood Pressure (mmHg) O2 Sat by Pulse Oximetry Oxygen Devices in Use Now: Nasal Cannula Appearance: no acute distress. resting in bed Eyes: No Scleral Icterus, PERRLA Ears/Nose/Mouth/Throat: NL Teeth, Lips, Gums, Mucous Membranes Moist Neck: NL Appearance and Movements; NL JVP Respiratory: Symmetrical Chest Expansion and Respiratory Effort, Clear to Auscultation Cardiovascular: NL Sounds; No Murmurs; No JVD, RRR, No Edema Abdominal: NL Sounds; No Tenderness; No Distention Extremities: No Edema Skin: - - some echymoses near pIV Neurological: Alert and Oriented x 3, NL Muscle Strength and Tone Nutrition: Taking PO's Result Diagrams: 10/24/16 05:41 10/27/16 06:40 Additional Lab and Data: Lab Results 10/20/16 Range/Units 14:30 WBC 10.9 H (3.5-10.8) 10^3/ul RBC 4.42 (4.0-5.4) 10^6/ul Hgb 13.9 (12.0-16.0) g/dl Hct 41 (35-47) % MCV 92 (80-97) fL MCH 31 (27-31) pg MCHC 34 (31-36) g/dl RDW 14 (10.5-15) % Plt Count 249 (150-450) 10^3/ul MPV 8 (7.4-10.4) um3 Absolute Neuts (auto) Pending Absolute Lymphs (auto) Pending Absolute Monos (auto) Pending Absolute Eos (auto) Pending Absolute Basos (auto) Pending Absolute Nucleated RBC Pending Neutrophils % Pending Normal RBC Morphology Pending Hem Pathologist Commnt Pending Microbiology and Other Data: Microbiology 10/20/16 19:56 Gram Stain - Final Sputum 10/20/16 19:40 Legionella Urinary Antigen - Final Urine Negative Legionella Streptococcus pneumoniae Ag Screen - Final Negative S. pneumo Antigen Assess/Plan/Problems-Billing Assessment: 71 year old PMH severe COPD (on home 3L), GABBY (CPAP), anxiety, depression, lung cancer s/p sterotaxtic radiation with concern for recurrence p/ w SOB likely 2/2 COPD exaccerbation. Improved since zosyn. On steroid taper - Patient Problems (1) COPD exacerbation Current Visit: Yes Status: Acute Priority: High Code(s): J44.1 - CHRONIC OBSTRUCTIVE PULMONARY DISEASE W (ACUTE) EXACERBATION SNOMED Code(s): 382441708 Comment: Feels much better since starting pip/luciana 10/24 PM. No bacterial growth on sputum culture but given clinical improvement continue current zosyn. Consider d/c on amox/clav. Day 2 of 3 prednisone to 50mg today. Continue mometasone/formoterol, tiotropium, nebs. (2) Lung cancer Current Visit: Yes Status: Acute Code(s): C34.90 - MALIGNANT NEOPLASM OF UNSP PART OF UNSP BRONCHUS OR LUNG SNOMED Code(s): 841076858 Comment: Concern for possible recurrence based off growth of nodules from 8 to 12mm. Needs outpatient f/u upon discharge with a new local oncologist as can' t travel to [place] consistently. (3) Anxiety Current Visit: Yes Status: Acute Code(s): F41.9 - ANXIETY DISORDER, UNSPECIFIED SNOMED Code(s): 05645436 Comment: Continue 0.5mg ativan BID with additional breakthrough prn with panic attacks after she changes ostomy (4) Tobacco abuse Current Visit: Yes Status: Acute Code(s): Z72.0 - TOBACCO USE SNOMED Code( s): 473372519 Comment: Continue nicotine patch. 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 INR down to 1.56, restart home coumadin 2mg with dinner. (7) Depression Current Visit: Yes Status: Chronic Priority: Medium Code(s): F32.9 - MAJOR DEPRESSIVE DISORDER, SINGLE EPISODE, UNSPECIFIED SNOMED Code(s): 73640663 Comment: - Continue Paxil Status and Disposition: inpatient, anticipated discharge 10/29 once VNS and health aides can be arranged. Attending: Crispin Phillip
[2016-10-27] MEDS: Warfarin TAB(*) 2 MG PO SCH (18:14)
[2016-10-27] MEDS: Levalbuterol 1.25MG/0.5ML NEB INH PRN (19:41)
[2016-10-27] MEDS: PARoxetine HCL TAB* 20 MG PO SCH (20:50)
[2016-10-27] MEDS: Nicotine Patch Removal NOTE FOLLOW UP SCH (22:01)
[2016-10-28] MEDS: Opium Tincture* 6 MG/0.6 ML ORAL.LIQ SYRINGE PO SCH ×6 (01:22→21:28)
[2016-10-28] MEDS: LORazepam TAB(*) 0.5 MG PO PRN (01:23)
[2016-10-28] MEDS: Levalbuterol 1.25MG/0.5ML NEB INH PRN ×3 (01:41→19:38)
[2016-10-28] MEDS: Mometasone/Formoter 200/5 MDI INH SCH ×2 (07:25→19:41)
[2016-10-28] MEDS: Tiotropium CAP.INH* CAP.INH/18 MCG (USE ORDER SET !) INH SCH (07:25)
[2016-10-28] MEDS: Acetaminophen TAB* 325 MG PO PRN ×2 (07:49→18:03)
[2016-10-28] MEDS: Nicotine PATCH 7 MG/24 HR* PATCH TRANSDERM SCH (08:44)
[2016-10-28] MEDS: Aspirin Low Dose CHEW TAB* 81 MG PO SCH (08:45)
[2016-10-28] MEDS: LORazepam TAB(*) 0.5 MG PO SCH ×2 (08:45→21:25)
[2016-10-28] MEDS: predniSONE TAB* 50 MG PO SCH (08:45)
[2016-10-28] MEDS: guaiFENesin ER TAB 600 MG PO SCH ×2 (08:45→21:26)
[2016-10-28] MEDS: Calcitriol CAP* 0.25 MCG PO SCH (09:23)
[2016-10-28] MEDS: Cinacalcet TAB* 30 MG PO SCH (09:23)
--- NOTE | 2016-10-28 13:17 | PN ---
Subjective Date of Service: 10/28/16 Interval History: Pt continues to feel improved from respiratory and cough standpoint. INR low. IV replaced. Objective Active Medications: Acetaminophen (Tylenol Tab*) 650 mg PO Q4H PRN PRN Reason: PAIN Last Admin: 10/28/16 07:49 Dose: 650 mg Aspirin (Aspirin Low Dose Tab*) 81 mg PO QAM [facility] Last Admin: 10/28/16 08:45 Dose: 81 mg Calcitriol (Rocaltrol Cap*) 0.25 mcg PO QAM [facility] Last Admin: 10/28/16 09:23 Dose: 0.25 mcg Cinacalcet (Sensipar Tab*) 30 mg PO QAM [facility] Last Admin: 10/28/16 09:23 Dose: 30 mg Cyanocobalamin (Vitamin B12 Inj *) 1,000 mcg IM Q14D [facility] Last Admin: 10/23/16 19:51 Dose: 1,000 mcg Guaifenesin (Mucinex*) 600 mg PO BID [facility] Last Admin: 10/28/16 08:45 Dose: 600 mg Piperacillin Sod/Tazobactam (Sod 3.375 gm/ Sodium Chloride) 100 mls @ 25 mls/ hr IVPB Q8HR [facility] Last Admin: 10/28/16 05:48 Dose: 25 mls/hr Levalbuterol HCl (Xopenex 1.25 Mg/0.5 Ml Neb.Vesna*) 1.25 mg INH Q6H PRN PRN Reason: SOB/WHEEZING Last Admin: 10/28/16 01:41 Dose: 1.25 mg Lorazepam (Ativan Tab(*)) 0.5 mg PO BID [facility] Last Admin: 10/28/16 08:45 Dose: 0.5 mg Lorazepam (Ativan Tab(*)) 0.5 mg PO Q2H PRN PRN Reason: ANXIETY Last Admin: 10/28/16 01:23 Dose: 0.5 mg Mometasone Furoate/Formoterol Fumar (Dulera 200/5 Mdi*) 2 puff INH BID [facility] Last Admin: 10/28/16 07:25 Dose: 2 puff Nicotine (Nicotine Patch 7 Mg/24 Hr*) 1 patch TRANSDERM DAILY [facility] Last Admin: 10/28/16 08:44 Dose: 1 patch Ondansetron HCl (Zofran Inj*) 4 mg IV Q6H PRN PRN Reason: NAUSEA Opium Tincture (Opium Tincture*) 6 mg PO Q4H [facility] Last Admin: 10/28/16 12:43 Dose: 6 mg Oxycodone/Acetaminophen (Percocet 5/325 Tab*) 1 tab PO Q6H PRN PRN Reason: PAIN Last Admin: 10/24/16 00:02 Dose: 1 tab Paroxetine HCl (Paxil Tab*) 30 mg PO BEDTIME [facility] Last Admin: 10/27/16 20:50 Dose: 30 mg Pharmacy Profile Note (Nicotine Patch Removal Note*) 1 note FOLLOW UP 2100 [facility] Last Admin: 10/27/16 22:01 Dose: 1 note Prednisone (Deltasone Tab*) 50 mg PO DAILY [facility] Last Admin: 10/28/16 08:45 Dose: 50 mg Tiotropium [place] (Spiriva Cap.Inh*) 1 cap INH DAILY [facility] Last Admin: 10/28/16 07:25 Dose: 1 cap Vitamin B Complex/Vitamin E (Complex B-100*) 1 tab PO DAILY [facility] Warfarin Sodium (Coumadin Tab(*)) 2 mg PO DAILY@1700 [facility] PRN Reason: Protocol Last Admin: 10/27/16 18:14 Dose: 2 mg Vital Signs 10/27/16 10/27/16 10/27/16 13:47 15:47 15:48 Temperature Pulse Rate 70 Respiratory 18 18 20 Rate Blood Pressure 121/49 (mmHg) O2 Sat by Pulse 97 Oximetry 10/27/16 10/27/16 10/27/16 15:51 18:14 19:43 Temperature 98.1 F Pulse Rate 72 Respiratory 18 20 Rate Blood Pressure (mmHg) O2 Sat by Pulse 99 Oximetry 10/27/16 10/27/16 10/27/16 19:47 20:00 20:14 Temperature 98.2 F Pulse Rate 66 Respiratory 20 18 16 Rate Blood Pressure 135/59 (mmHg) O2 Sat by Pulse 99 Oximetry 10/27/16 10/27/16 10/27/16 20:49 20:51 22:49 Temperature Pulse Rate Respiratory 18 18 16 Rate Blood Pressure (mmHg) O2 Sat by Pulse Oximetry 10/27/16 10/27/16 10/28/16 22:51 23:23 01:22 Temperature 98.2 F Pulse Rate 67 Respiratory 16 16 16 Rate Blood Pressure 129/59 (mmHg) O2 Sat by Pulse 99 Oximetry 10/28/16 10/28/16 10/28/16 01:23 01:37 03:22 Temperature Pulse Rate 58 Respiratory 16 20 16 Rate Blood Pressure (mmHg) O2 Sat by Pulse 99 Oximetry 10/28/16 10/28/16 10/28/16 03:23 04:31 05:48 Temperature 98.2 F Pulse Rate 59 Respiratory 16 16 18 Rate Blood Pressure 111/50 (mmHg) O2 Sat by Pulse 100 Oximetry 10/28/16 10/28/16 10/28/16 07:37 07:48 08:00 Temperature 98.1 F Pulse Rate 62 Respiratory 16 16 16 Rate Blood Pressure 123/57 (mmHg) O2 Sat by Pulse 98 Oximetry 10/28/16 10/28/16 10/28/16 08:43 08:45 10:43 Temperature Pulse Rate Respiratory 16 16 16 Rate Blood Pressure (mmHg) O2 Sat by Pulse Oximetry 10/28/16 10/28/16 10:45 12:43 Temperature Pulse Rate Respiratory 16 16 Rate Blood Pressure (mmHg) O2 Sat by Pulse Oximetry Oxygen Devices in Use Now: Nasal Cannula Appearance: resting in bed, chronically ill appearing Eyes: No Scleral Icterus, PERRLA Ears/Nose/Mouth/Throat: NL Teeth, Lips, Gums Neck: NL Appearance and Movements; NL JVP Respiratory: Symmetrical Chest Expansion and Respiratory Effort, Clear to Auscultation, - - best she has sounded. Cardiovascular: NL Sounds; No Murmurs; No JVD, RRR Abdominal: NL Sounds; No Tenderness; No Distention Extremities: No Edema, No Clubbing, Cyanosis Skin: No Rash or Ulcers Neurological: Alert and Oriented x 3, NL Sensation, NL Muscle Strength and Tone Result Diagrams: 10/24/16 05:41 10/27/16 06:40 Additional Lab and Data: Lab Results 10/20/16 Range/Units 14:30 WBC 10.9 H (3.5-10.8) 10^3/ul RBC 4.42 (4.0-5.4) 10^6/ul Hgb 13.9 (12.0-16.0) g/dl Hct 41 (35-47) % MCV 92 (80-97) fL MCH 31 (27-31) pg MCHC 34 (31-36) g/dl RDW 14 (10.5-15) % Plt Count 249 (150-450) 10^3/ul MPV 8 (7.4-10.4) um3 Absolute Neuts (auto) Pending Absolute Lymphs (auto) Pending Absolute Monos (auto) Pending Absolute Eos (auto) Pending Absolute Basos (auto) Pending Absolute Nucleated RBC Pending Neutrophils % Pending Normal RBC Morphology Pending Hem Pathologist Commnt Pending Microbiology and Other Data: Microbiology 10/20/16 19:56 Gram Stain - Final Sputum 10/20/16 19:40 Legionella Urinary Antigen - Final Urine Negative Legionella Streptococcus pneumoniae Ag Screen - Final Negative S. pneumo Antigen Assess/Plan/Problems-Billing Assessment: 71 year old PMH severe COPD (on home 3L), GABBY (CPAP), anxiety, depression, lung cancer s/p sterotaxtic radiation with concern for recurrence p/ w SOB likely 2/2 COPD exaccerbation. Improved since zosyn, now day 5. On steroid taper . Plan discharge to home 10/29 with VNS - Patient Problems (1) COPD exacerbation Current Visit: Yes Status: Acute Priority: High Code(s): J44.1 - CHRONIC OBSTRUCTIVE PULMONARY DISEASE W (ACUTE) EXACERBATION SNOMED Code(s): 802045028 Comment: Feels much better since starting pip/luciana 10/24 PM. Day 5 of planned 6. No bacterial growth on sputum culture but given clinical improvement continue current zosyn. Consider d/c on amox/clav. Day 3 of 3 prednisone to 50mg today. 40mg tomorrow. Continue mometasone/formoterol, tiotropium, nebs. (2) Lung cancer Current Visit: Yes Status: Acute Code(s): C34.90 - MALIGNANT NEOPLASM OF UNSP PART OF UNSP BRONCHUS OR LUNG SNOMED Code(s): 011219228 Comment: Concern for possible recurrence based off growth of nodules from 8 to 12mm. Needs outpatient f/u upon discharge with a new local oncologist as can' t travel to [place] consistently. (3) Anxiety Current Visit: Yes Status: Acute Code(s): F41.9 - ANXIETY DISORDER, UNSPECIFIED SNOMED Code(s): 71199946 Comment: Continue 0.5mg ativan BID with additional breakthrough prn with panic attacks after she changes ostomy (4) Tobacco abuse Current Visit: Yes Status: Acute Code(s): Z72.0 - TOBACCO USE SNOMED Code( s): 200831271 Comment: Continue nicotine patch. 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 INR down to 1.41, restarted home coumadin 2mg on 10/27 (7) Depression Current Visit: Yes Status: Chronic Priority: Medium Code(s): F32.9 - MAJOR DEPRESSIVE DISORDER, SINGLE EPISODE, UNSPECIFIED SNOMED Code(s): 85963596 Comment: - Continue Paxil Status and Disposition: inpatient, anticipated discharge 10/29 once VNS and health aides can be arranged. Attending: Crispin Phillip
[2016-10-28] MEDS: Vitamin B Complex TAB PO SCH (14:46)
[2016-10-28] MEDS: Warfarin TAB(*) 2 MG PO SCH (17:09)
[2016-10-28] MEDS: PARoxetine HCL TAB* 20 MG PO SCH (21:26)
[2016-10-28] MEDS: Nicotine Patch Removal NOTE FOLLOW UP SCH (21:31)
[2016-10-28] MEDS: oxyCODONE/Acetamin 5/325 MG* TAB PO PRN (22:47)
[2016-10-29] MEDS: LORazepam TAB(*) 0.5 MG PO PRN ×2 (00:08→06:11)
[2016-10-29] MEDS: Levalbuterol 1.25MG/0.5ML NEB INH PRN ×2 (00:29→05:46)
[2016-10-29] MEDS: Acetaminophen TAB* 325 MG PO PRN (02:46)
[2016-10-29] MEDS: Opium Tincture* 6 MG/0.6 ML ORAL.LIQ SYRINGE PO SCH ×4 (02:47→14:53)
[2016-10-29] MEDS: Tiotropium CAP.INH* CAP.INH/18 MCG (USE ORDER SET !) INH SCH (07:52)
[2016-10-29] MEDS: Mometasone/Formoter 200/5 MDI INH SCH (07:52)
[2016-10-29] MEDS ORDERED: predniSONE TAB* 20 MG PO SCH (09:00)
[2016-10-29 10:06] VITALS: BP 115/49
[2016-10-29] MEDS: Nicotine PATCH 7 MG/24 HR* PATCH TRANSDERM SCH (10:11)
[2016-10-29] MEDS: Cinacalcet TAB* 30 MG PO SCH (10:11)
[2016-10-29] MEDS: Calcitriol CAP* 0.25 MCG PO SCH (10:11)
[2016-10-29] MEDS: LORazepam TAB(*) 0.5 MG PO SCH (10:11)
[2016-10-29] MEDS: guaiFENesin ER TAB 600 MG PO SCH (10:11)
[2016-10-29] MEDS: Aspirin Low Dose CHEW TAB* 81 MG PO SCH (10:12)
[2016-10-29] MEDS: Vitamin B Complex TAB PO SCH (10:12)
--- NOTE | 2016-10-29 13:07 | PN ---
Progress Note - Progress Note Date of Service: 10/29/16 Note: Pt seen and examined at bedside. Pt reports feeling better, SOB is improved, waiting ot be d/edilia home. Active Medications Generic Name Dose Route Start Last Admin Trade Name Freq PRN Reason Stop Dose Admin Acetaminophen 650 mg 10/21/16 10:13 10/29/16 02:46 Tylenol Tab* PO 650 mg Q4H PRN Administration PAIN Aspirin 81 mg 10/21/16 09:00 10/29/16 10:12 Aspirin Low Dose Tab* PO 81 mg QAM HANK Administration Calcitriol 0.25 mcg 10/21/16 09:00 10/29/16 10:11 Rocaltrol Cap* PO 0.25 mcg QAM HANK Administration Cinacalcet 30 mg 10/21/16 09:00 10/29/16 10:11 Sensipar Tab* PO 30 mg QAM HANK Administration Cyanocobalamin 1,000 mcg 10/23/16 18:00 10/23/16 19:51 Vitamin B12 Inj * IM 1,000 mcg Q14D HANK Administration Guaifenesin 600 mg 10/22/16 21:00 10/29/16 10:11 Mucinex* PO 600 mg BID HANK Administration Heparin Sodium (Porcine) 0 ml 10/28/16 21:00 10/29/16 12:11 Heparin Flush Picc/Ml/Cvc(*) FLUSH 1 ml 0600,1800 HANK Administration Piperacillin Sod/Tazobactam 100 mls @ 25 mls/hr 10/24/16 22:15 10/29/16 06:07 Sod 3.375 gm/ Sodium Chloride IVPB 25 mls/hr Q8HR HANK Administration Levalbuterol HCl 1.25 mg 10/27/16 08:16 10/29/16 05:46 Xopenex 1.25 Mg/0.5 Ml Neb.Vesna* INH 1.25 mg Q6H PRN Administration SOB/WHEEZING Lorazepam 0.5 mg 10/25/16 21:00 10/29/16 10:11 Ativan Tab(*) PO 0.5 mg BID HANK Administration Lorazepam 0.5 mg 10/26/16 12:45 10/29/16 06:11 Ativan Tab(*) PO 0.5 mg Q2H PRN Administration ANXIETY Mometasone Furoate/Formoterol Fumar 2 puff 10/20/16 21:00 10/29/16 07:52 Dulera 200/5 Mdi* INH 2 puff BID HANK Administration Nicotine 1 patch 10/21/16 09:00 10/29/16 10:11 Nicotine Patch 7 Mg/24 Hr* TRANSDERM 1 patch DAILY HANK Administration Ondansetron HCl 4 mg 10/20/16 16:05 Zofran Inj* IV Q6H PRN NAUSEA Opium Tincture 6 mg 10/25/16 05:00 10/29/16 10:10 Opium Tincture* PO 6 mg Q4H HANK Administration Oxycodone/Acetaminophen 1 tab 10/23/16 23:35 10/28/16 22:47 Percocet 5/325 Tab* PO 1 tab Q6H PRN Administration PAIN Paroxetine HCl 30 mg 10/20/16 21:00 10/28/16 21:26 Paxil Tab* PO 30 mg BEDTIME HANK Administration Pharmacy Profile Note 1 note 10/20/16 21:00 10/28/16 21:31 Nicotine Patch Removal Note* FOLLOW UP 1 note 2100 HANK Administration Prednisone 40 mg 10/29/16 09:00 10/29/16 10:11 Deltasone Tab* PO 40 mg DAILY HANK Administration Tiotropium [place] 1 cap 10/21/16 11:00 10/29/16 07:52 Spiriva Cap.Inh* INH 1 cap DAILY HANK Administration Vitamin B Complex/Vitamin E 1 tab 10/28/16 14:00 10/29/16 10:12 Complex B-100* PO 1 tab DAILY HANK Administration Warfarin Sodium 2 mg 10/27/16 17:00 10/28/16 17:09 Coumadin Tab(*) PO 2 mg DAILY@1700 HANK Administration Protocol Vital Signs Temp Pulse Resp BP Pulse Ox 98.2 F 70 16 115/49 99 10/29/16 08:17 10/29/16 08:17 10/29/16 12:11 10/29/16 08:17 10/29/16 08:17 Gen: Lying in bed in NAD HEENT: No Scleral Icterus, PERRLA Neck: NL Appearance and Movements; NL JVP Respiratory: Symmetrical Chest Expansion and Respiratory Effort, Clear to Auscultation, No accessory muscle usage Cardiovascular: NL Sounds; No Murmurs; No JVD, RRR Abdominal: NL Sounds; No Tenderness; No Distention Extremities: No Edema, No Clubbing, Cyanosis Skin: No Rash or Ulcers Neurological: Alert and Oriented x 3, NL Sensation, No focal defecits Laboratory Results - last 24 hr 10/29/16 03:30 INR (Anticoag Therapy) 2.06 H I/R: 71 y o f with significant smoking history a/w worsening SOB, treated for acute COPD exacerbation, improving C/w steroid taper Pt was treated with ZOsyn for possible Pseudomonal bronchitis c/w bronchodilators For D/c today CT chest showed increase in size of lung nodule concerning for recurrence of malignancy, pt would prefer to see oncologist locally, she was f/u oncology at [place], will arrange as out pt
--- NOTE | 2016-10-30 05:08 | DS ---
DISCHARGE SUMMARY: DATE OF ADMISSION: 10/20/16 DATE OF DISCHARGE: 10/29/16 ADMITTING PROVIDER: Roney Winn NP ATTENDING PHYSICIAN: Crispin Phillip MD PRIMARY DIAGNOSIS: Chronic obstructive pulmonary disease exacerbation with respiratory failure. SECONDARY DIAGNOSES: 1. Chronic kidney disease stage 3. 2. History of pulmonary embolism with anticoagulation goal INR 2 to 3 on Coumadin. 3. Depression and anxiety. 4. Lung cancer with concern for recurrence. 5. Tobacco abuse, current HISTORY OF PRESENT ILLNESS AND HOSPITAL COURSE: Ms. Tovar is a 71-year-old female with past medical history of COPD; Crohn's disease, status post ileostomy ; lung cancer; CKD stage 3; diabetes; pulmonary embolism, on Coumadin for lifelong anticoagulation; restless leg syndrome; anxiety; depression. Please see H and P of 10/20 for further details, but briefly she came in with progressive worsening of shortness of breath with minimal exertion, dry cough, chills. At baseline, she is on home oxygen 3 L. The patient was tachycardic in the ED to 105. She was admitted to medicine unit for COPD exacerbation and treated initially with ceftriaxone and azithromycin. Sputum culture was obtained without bacterial growth. She was continued on inhalers and prednisone 60 mg daily initially with slow taper. She did not improve initially until antibiotic was switched to Zosyn on 10/24/16, after which she did show gradual and substantial improvement in her breathing function. She completed a 6-day course of Zosyn and will be discharged on the prednisone taper ; currently 40 mg for another 4 days, followed by 30 mg x5 days, 20 mg x5 days, and then 10 mg continuously given likely adrenal suppression given decades long use of prednisone. Imaging demonstrated interval increase in the size of a right lower lobe nodule from 8 mm to 12 mm. Given her deconditioned state and inability to travel long distances, she has been discharged from her previous oncology practice located in [place] and is seeking further local Hematology/ Oncology followup with Dr. Mora, which has been arranged. She was initially subtherapeutic with her INR, got 5 mg of Coumadin which given interaction with Zosyn boosted her INR to supratherapeutic range. On discharge , she had restarted her 2 mg Coumadin with last INR 2.1. She was sent home with visiting nurses services and plan to reengage with her private home health aides. Of note, her significant other Nikki is away to [facility] on a trip for 3 weeks and patient will not be able to travel to any appointments outside that timeframe i.e. after 11/18/16. The patient suffers from anxiety and depression and was quite vicente that she would rather kill herself than go into a subacute rehab facility. She was given a nicotine patch for her current tobacco use (2 to 3 cigarettes a day). She was treated with her home Paxil for her depression. Her lung exam on day of discharge included respiratory exam, clear lungs without wheezing or rhonchi. She was at her baseline 2 to 3 L of oxygen. DISPOSITION: Home with VNS and home health aides. DIET: Regular. FOLLOWUP: With Dr. Mora on Friday11/20/16 at 2:40 p.m. has been arranged. The patient should also follow up with PCP, Dr. France, as she is able when her significant other returns to the [facility] (after 11/18). DISCHARGE MEDICATIONS: Include: 1. Aspirin 81 mg daily. 2. Calcitriol 0.25 mcg p.o. q.a.m. 3. Sensipar 30 mg p.o. q.a.m. 4. Vitamin B12 injections 1000 mcg weekly. 5. Ipratropium nebulizer q.4 hours p.r.n. 6. Lorazepam 0.5 mg p.o. b.i.d. with an additional p.r.n. dose with panic attacks following heavy exertion. 7. Zofran 4 mg q.6 p.r.n. 8. Opium tincture 2 mg/mL 0.6 mL p.o. q.48. 9. Paxil 30 mg p.o. bedtime. 10. Spiriva inhaler daily. 11. Warfarin 2 mg p.o. q. p.m. 12. Mucinex 600 mg p.o. b.i.d. 13. Prednisone taper 40 mg x4 days, 30 mg x5 days, 20 mg x5 days, 10 mg indefinitely until followup with Dr. uZniga. [id number]/[facility] #: [id number] MTDD
== END 2016-10-29 15:20 | disposition home health service (06) | DRG 190 ==
LOC: ED 12:33 → MEDTELE 15:59 → MED 10-25 00:14
PROVIDERS: ADMIT Internal Medicine; ATTEND Internal Medicine
DX: J44.1 Chronic obstructive pulmonary disease with (acute) exacerbation (principal); J96.90 Respiratory failure, unspecified, unspecified whether with hypoxia or hypercapnia; K50.90 Crohn's disease, unspecified, without complications; E11.22 Type 2 diabetes mellitus with diabetic chronic kidney disease; E11.40 Type 2 diabetes mellitus with diabetic neuropathy, unspecified; M41.9 Scoliosis, unspecified; C34.90 Malignant neoplasm of unspecified part of unspecified bronchus or lung; G47.30 Sleep apnea, unspecified; I12.9 Hypertensive chronic kidney disease with stage 1 through stage 4 chronic kidney disease, or unspecified chronic kidney disease; N18.3 Chronic kidney disease, stage 3 (moderate); M81.0 Age-related osteoporosis without current pathological fracture; F41.9 Anxiety disorder, unspecified; F32.9 Major depressive disorder, single episode, unspecified; F17.210 Nicotine dependence, cigarettes, uncomplicated; R40.2412 Glasgow coma scale score 13-15, at arrival to emergency department; G25.81 Restless legs syndrome; Z66 Do not resuscitate; R51 Headache; R74.8 Abnormal levels of other serum enzymes; R79.1 Abnormal coagulation profile; Z79.82 Long term (current) use of aspirin; Z88.1 Allergy status to other antibiotic agents; Z99.81 Dependence on supplemental oxygen; Z88.7 Allergy status to serum and vaccine; Z88.8 Allergy status to other drugs, medicaments and biological substances; Z86.718 Personal history of other venous thrombosis and embolism; Z86.711 Personal history of pulmonary embolism; Z72.89 Other problems related to lifestyle; Z98.42 Cataract extraction status, left eye; Z98.41 Cataract extraction status, right eye; Z90.49 Acquired absence of other specified parts of digestive tract; Z88.4 Allergy status to anesthetic agent; Z93.2 Ileostomy status; Z82.49 Family history of ischemic heart disease and other diseases of the circulatory system
CPT/HCPCS: 36415; 71010; 71250; 80048; 80053; 81003; 81015; 82550; 82553; 83605; 83880; 84484; 85025; 85060; 85379; 85610; 85730; 86140; 87040; 87070; 87077; 87086; 87205; 87502; 87899; 93005; 93306; 94640; 94660; 94760; 96360; A9270-GY; J0456; J1650; J2060; J2543; J2930; J3420; J7512; J7644

== ENCOUNTER 2017-01-17 14:05 | Emergency (ER) | payer MEDICARE ==
--- NOTE | 2017-01-17 15:16 | RAD ---
Dictation: Shortness of breath. Single frontal view of the chest performed at 1453 hours was reviewed. Comparison is made with previous exam dated October 20, 2016. Hyperinflated lung randall are noted. Increasing size of mass in the right base is noted. No alveolar consolidation is noted. Postoperative changes in the right midlung field. IMPRESSION: ENLARGING MASS IN THE RIGHT LOWER LOBE. RIGHT UPPER LOBE SCARRING AND ATELECTASIS.
[2017-01-17 15:18] LABS: Hematocrit 45 % (35-47); Hemoglobin 14.9 g/dl (12.0-16.0); Mean Corpuscular HGB Conc 33 g/dl (31-36); Mean Corpuscular Hemoglobin 31 pg (27-31); Mean Corpuscular Volume 94 fL (80-97); Mean Platelet Volume 8 um3 (7.4-10.4); Red Blood Count 4.77 10^6/ul (4.0-5.4); Red Cell Distribution Width 15 % (10.5-15); White Blood Count 13.3 10^3/ul (3.5-10.8)
[2017-01-17 15:28] LABS: Albumin 4.4 g/dL (3.2-5.2); BUN/Creatinine Ratio 17.3 (8-20); C Reactive Protein 12.12 mg/L (< 5.00); Calcium 9.3 mg/dL (8.6-10.3); EGFR African American 31.1 (>60); EGFR Non-African American 24.1 (>60); Globulin 3.1 g/dL (2-4); Potassium 4.9 mmol/L (3.5-5.0); Total Bilirubin 0.6 mg/dL (0.2-1.0); Total Protein 7.5 g/dL (6.4-8.9)
[2017-01-17 15:29] LABS: Troponin I 0.02 ng/mL (<0.04)
[2017-01-17 17:02] LABS: PCO2 Arterial 49 mmHg (35-45)
[2017-01-17 17:48] VITALS: BP 128/72
--- NOTE | 2017-01-18 07:32 | ED ---
Mansoor Zhao Gabriel, scribed for Mitchel Grove MD on 01/17/17 at 1440 . Respiratory - HPI Summary HPI Summary: This patient is a 71 year old F BIBA to [facility] accompanied by family with a chief complaint of difficulty breathing since an hour ago, which has spontaneous resolved. Patient has just finished chemotherapy for her lung cancer. Patient reports increased SOB, cough, and sinus draining. Patient denies fever, CP, n/v/d and any vision changes. - History of Current Complaint Stated Complaint: DIFF BREATHING Time Seen by Provider: 01/17/17 14:33 Hx Obtained From: Patient, Family/Pastry Wrapper Onset/Duration: Sudden Onset, Resolved Associated Signs and Symptoms: Negative - fever, CP, n/v/d and any vision changes., SOB - Allergy/Home Medications Allergies/Adverse Reactions: Allergies Allergy/AdvReac Type Severity Reaction Status Date / Time Levofloxacin [From Levaquin] Allergy Mild Rash Verified 10/21/16 03:20 Vancomycin Allergy Mild Wheezing Verified 10/21/16 03:20 Epinephrine AdvReac Intermediate Incr Verified 10/21/16 03:20 HR/N/V/feels faint Infliximab [From Remicade] AdvReac Intermediate arm Verified 10/21/16 03:20 swelling/pain/itching Tetanus Toxoid AdvReac Intermediate arm Verified 10/21/16 03:20 pain/swelling/itching Doxycycline AdvReac Mild Vomiting Verified 10/21/16 03:20 Daptomycin AdvReac See Comment Verified 10/21/16 03:20 eggplant Allergy Mild Difficulty Uncoded 10/21/16 03:20 Breathing Home Medications: Home Medications predniSONE TAB* [Deltasone TAB*] 7.5 mg PO DAILY 01/17/17 [History Confirmed ] PMH/Surg Hx/FS Hx/Imm Hx Previously Healthy: No Endocrine/Hematology History: Reports: Hx Anticoagulant Therapy - coumadin Denies: Hx Diabetes Cardiovascular History: Reports: Hx Deep Vein Thrombosis, Hx Embolism - PE, Hx Hypotension, Hx Hypertension, Hx Syncope, 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 Denies: Hx Pacemaker/ICD Respiratory History: Reports: Hx Asthma - intermittent, Hx Chronic Bronchitis, Hx Chronic Obstructive Pulmonary Disease (COPD), Hx Pulmonary Embolism - 2010, Hx Sleep Apnea, Other Respiratory Problems/Disorders - O2 at home GI History: Reports: Hx Crohn's Disease, Hx Ileostomy, Other GI Disorders - Ileostomy placement History: Reports: Hx Acute Renal Failure, Hx Chronic Renal Failure, Other Problems/Disorders - Renal deficit per Dr Whittaker Denies: Hx Dialysis, Hx Renal Disease Musculoskeletal History: Reports: Hx Back Problems, Hx Osteoporosis, Hx Scoliosis - lumbar disc problems; scoliosis Sensory History: Reports: Hx Cataracts, Hx Contacts or Glasses, Hx Hearing Problem Denies: Hx Hearing Aid Opthamlomology History: Reports: Hx Cataracts, Hx Contacts or Glasses Neurological History: Reports: Hx Nerve Disease - neuropathy, 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 SEVERAL BOWEL RESECTIONS AND FISTULA, [facility] Hx Anesthesia Reactions: Yes - LOW BP - Immunization History Date of Tetanus Vaccine: PT STATES UNSURE Date of Influenza Vaccine: PT STATES UNSURE Infectious Disease History: Reports: Hx of Known/Suspected MRSA Denies: Traveled Outside the [place] in Last 30 Days - Family History Known Family History: Positive: Unknown - Parents very young., Other - Crohn's Disease - Social History Alcohol Use: Rare Alcohol Amount: 1 Q 2-3 MONTHS Hx Substance Use: No Substance Use Type: Reports: Other Substance Use Comment - Amount & Last Used: prescribed opium Hx Tobacco Use: Yes Smoking Status (MU): Light Every Day Tobacco Smoker Type: Cigarettes Amount Used/How Often: 1-2 cigarettes per day Length of Time of Smoking/Using Tobacco: 53 years Have You Smoked in the Last Year: Yes Review of Systems Negative: Fever Positive: Other - sinus drainage Negative: Chest Pain Positive: Shortness Of Breath - increased from baseline , Cough Negative: Vomiting, Diarrhea, Nausea Neurological: Negative - vision changes All Other Systems Reviewed And Are Negative: Yes Physical Exam - Summary Physical Exam Summary: VITAL SIGNS: Reviewed. GENERAL: ~Patient is a well-developed and nourished female who is lying comfortable in the stretcher. ~Patient is not in any acute respiratory distress. HEAD AND FACE: No signs of trauma. ~No ecchymosis, hematomas or skull depressions. No sinus tenderness. EYES: PERRLA, EOMI x 2, No injected conjunctiva, no nystagmus. EARS: Hearing grossly intact. Ear canals and tympanic membranes are within normal limits. MOUTH: Oropharynx within normal limits. NECK: Supple, trachea is midline, no adenopathy, no JVD, no carotid bruit, no c- spine tenderness, neck with full ROM. CHEST: Symmetric, no tenderness at palpation LUNGS: Clear to auscultation bilaterally. Wheezing in apices of lung . Diffuse crackles in both lungs. Patient in on 4 liters of O2 nasal cannula CVS: Regular rate and rhythm, S1 and S2 present, no murmurs or gallops appreciated. ABDOMEN: Soft, non-tender. No signs of distention. No rebound no guarding, and no masses palpated. Bowel sounds are normal. EXTREMITIES: FROM in all major joints, no edema, no cyanosis or clubbing. NEURO: Alert and oriented x 3. No acute neurological deficits. Speech is normal and follows commands. SKIN: Dry and warm Triage Information Reviewed: Yes Vital Signs On Initial Exam: Initial Vitals Pulse Pulse Ox 99 94 01/17/17 14:14 01/17/17 14:14 Vital Signs Reviewed: Yes Diagnostics - Vital Signs Vital Signs Temp Pulse Resp BP Pulse Ox 01/17/17 17:47 97.8 F 86 17 128/72 97 01/17/17 15:05 85 15 137/78 97 01/17/17 15:00 85 20 97 01/17/17 14:39 98.7 F 85 18 143/81 96 01/17/17 14:32 143/81 01/17/17 14:30 91 96 01/17/17 14:14 99 94 - Laboratory Lab Results: Lab Results 01/17/17 01/17/17 01/17/17 Range/Units 15:06 15:06 15:06 WBC 13.3 H (3.5-10.8) 10^3/ul RBC 4.77 (4.0-5.4) 10^6/ul Hgb 14.9 (12.0-16.0) g/dl Hct 45 (35-47) % MCV 94 (80-97) fL MCH 31 (27-31) pg MCHC 33 (31-36) g/dl RDW 15 (10.5-15) % Plt Count 268 (150-450) 10^3/ul MPV 8 (7.4-10.4) um3 Neut % (Auto) 77.5 (38-83) % Lymph % (Auto) 12.0 L (25-47) % [place] % (Auto) 6.4 (1-9) % Eos % (Auto) 3.0 (0-6) % Baso % (Auto) 1.1 (0-2) % Absolute Neuts (auto) 10.3 H (1.5-7.7) 10^3/ul Absolute Lymphs (auto) 1.6 (1.0-4.8) 10^3/ul Absolute Monos (auto) 0.9 H (0-0.8) 10^3/ul Absolute Eos (auto) 0.4 (0-0.6) 10^3/ul Absolute Basos (auto) 0.1 (0-0.2) 10^3/ul Absolute Nucleated RBC 0 10^3/ul Nucleated RBC % 0 Patient Temperature ABG pH (7.35-7.45) ABG pH (Temp Correct) ABG pCO2 (35-45) mmHg ABG pCO2 (Temp Corrct ABG pO2 (80-100) mmHg ABG pO2 (Temp Correct ABG HCO3 (19-31) mmol/L ABG O2 Saturation (95-98) % ABG Base Excess (-2.0-2.0) Respiration Rate O2 Delivery Device Ventilator Type Vent Mode FiO2 Inspiratory Time PEEP Pressure Support Pressure Control EPAP IPAP BiPAP Sodium 136 (133-145) mmol/L Potassium 4.9 (3.5-5.0) mmol/L Chloride 98 L (101-111) mmol/L Carbon Dioxide 28 (22-32) mmol/L Anion Gap 10 (2-11) mmol/L BUN 35 H (6-24) mg/dL Creatinine 2.02 H (0.51-0.95) mg/dL Est GFR ( Amer) 31.1 (>60) Est GFR (Non-Af Amer) 24.1 (>60) BUN/Creatinine Ratio 17.3 (8-20) Glucose 115 H (70-100) mg/dL Calcium 9.3 (8.6-10.3) mg/dL Total Bilirubin 0.60 (0.2-1.0) mg/dL AST 28 (13-39) U/L ALT 24 (7-52) U/L Alkaline Phosphatase 69 (34-104) U/L Troponin I 0.02 (<0.04) ng/mL C-Reactive Protein 12.12 H (< 5.00) mg/L B-Natriuretic Peptide 42 ( - 100) pg/mL Total Protein 7.5 (6.4-8.9) g/dL Albumin 4.4 (3.2-5.2) g/dL Globulin 3.1 (2-4) g/dL Albumin/Globulin Ratio 1.4 (1-3) Influenza A (Rapid) (Negative) Influenza B (Rapid) (Negative) 01/17/17 01/17/17 Range/Units 15:37 16:55 WBC (3.5-10.8) 10^3/ul RBC (4.0-5.4) 10^6/ul Hgb (12.0-16.0) g/dl Hct (35-47) % MCV (80-97) fL MCH (27-31) pg MCHC (31-36) g/dl RDW (10.5-15) % Plt Count (150-450) 10^3/ul MPV (7.4-10.4) um3 Neut % (Auto) (38-83) % Lymph % (Auto) (25-47) % [place] % (Auto) (1-9) % Eos % (Auto) (0-6) % Baso % (Auto) (0-2) % Absolute Neuts (auto) (1.5-7.7) 10^3/ul Absolute Lymphs (auto) (1.0-4.8) 10^3/ul Absolute Monos (auto) (0-0.8) 10^3/ul Absolute Eos (auto) (0-0.6) 10^3/ul Absolute Basos (auto) (0-0.2) 10^3/ul Absolute Nucleated RBC 10^3/ul Nucleated RBC % Patient Temperature Not Reportable ABG pH 7.38 (7.35-7.45) ABG pH (Temp Correct) Not Reportable ABG pCO2 49 H (35-45) mmHg ABG pCO2 (Temp Corrct Not Reportable ABG pO2 88 (80-100) mmHg ABG pO2 (Temp Correct Not Reportable ABG HCO3 27.0 (19-31) mmol/L ABG O2 Saturation 97.7 (95-98) % ABG Base Excess 2.8 H (-2.0-2.0) Respiration Rate Not Reportable O2 Delivery Device 4 Ventilator Type Not Reportable Vent Mode Not Reportable FiO2 Not Reportable Inspiratory Time Not Reportable PEEP Not Reportable Pressure Support Not Reportable Pressure Control Not Reportable EPAP Not Reportable IPAP Not Reportable BiPAP Not Reportable Sodium (133-145) mmol/L Potassium (3.5-5.0) mmol/L Chloride (101-111) mmol/L Carbon Dioxide (22-32) mmol/L Anion Gap (2-11) mmol/L BUN (6-24) mg/dL Creatinine (0.51-0.95) mg/dL Est GFR ( Amer) (>60) Est GFR (Non-Af Amer) (>60) BUN/Creatinine Ratio (8-20) Glucose (70-100) mg/dL Calcium (8.6-10.3) mg/dL Total Bilirubin (0.2-1.0) mg/dL AST (13-39) U/L ALT (7-52) U/L Alkaline Phosphatase (34-104) U/L Troponin I (<0.04) ng/mL C-Reactive Protein (< 5.00) mg/L B-Natriuretic Peptide ( - 100) pg/mL Total Protein (6.4-8.9) g/dL Albumin (3.2-5.2) g/dL Globulin (2-4) g/dL Albumin/Globulin Ratio (1-3) Influenza A (Rapid) Negative (Negative) Influenza B (Rapid) Negative (Negative) Result Diagrams: 01/17/17 15:06 01/17/17 15:06 Lab Statement: Any lab studies that have been ordered have been reviewed, and results considered in the medical decision making process. - EKG 14:54 Cardiac Rate: NL EKG Rhythm: Sinus Rhythm - 84 BPM EKG Interpretation: No ST elevation EKG Comparison: No Significant Change - In comparison to EKG from 10/21/2016 Disposition - Course Assessment/Plan: In the ED course an IV access was obtained. Patient was placed in a rn cardiac. Patient was started with IV fluids. Labs without any significant abnormality except for wbc 13.3, Chronic renal failure possible secondary dehydration. Troponin #1: 0.02. EKG shows a NSR at 84 BPM w/o ST elevations. CXR impression: No acute pathology. After hydration patient is feeling better. We ambulated the patient and she did well, she had a good steady walk. Since she has no fever SOB resolved, no CP and she is feeling better she will be discharged home with F/U of PD. I discussed all the findings and test results with the patient. Patient was instructed to return to the emergency room immediately if any of the symptoms return or worsens . Plan of care was discussed with the patient and understands and agrees. All questions were answered at patient satisfaction. There were no further complaints or concerns. Lung exam before discharge: CTA B/L. Good air exchange. No wheezing or crackles heard. CVS: S1 and S2 present. No murmurs appreciated. Patient is alert and oriented x 3. Patient is hemodynamically stable. Patient will be discharged home with follow up cheese pancake roller in the next 2-3 days - Differential Dx - Cardiopulmonary Differential Diagnoses - Cardiopulmonary: Asthma, Bronchitis, CHF - Diagnoses Provider Diagnoses: SOB (shortness of breath) Discharge - Discharge Plan Condition: Stable Disposition: HOME Patient Education Materials: Dyspnea (ED) Referrals: Suzette France MD [Primary Care Provider] - 3 Days Additional Instructions: RETURN TO THE EMERGENCY DEPARTMENT FOR CHANGING OR WORSENING SYMPTOMS. The documentation as recorded by the Mansoor ray Gabriel accurately reflects the service I personally performed and the decisions made by , Mitchel Grove MD.
== END 2017-01-17 17:49 | disposition home or self-care (01) ==
LOC: ED 14:05
DX: R06.02 Shortness of breath (principal); Z88.1 Allergy status to other antibiotic agents; Z88.8 Allergy status to other drugs, medicaments and biological substances; Z86.718 Personal history of other venous thrombosis and embolism; Z86.711 Personal history of pulmonary embolism; Z79.01 Long term (current) use of anticoagulants; I10 Essential (primary) hypertension; Z85.118 Personal history of other malignant neoplasm of bronchus and lung; F17.210 Nicotine dependence, cigarettes, uncomplicated
CPT/HCPCS: 36415; 36600; 71010; 80053; 82803; 83880; 84484; 85025; 86140; 87502; 93005; 99283

== ENCOUNTER 2017-01-22 23:45 | Inpatient (IN) | payer MEDICARE ==
[2017-01-22] MEDS ORDERED: Albuterol/Ipratropium NEB.SOL* Albuterol 2.5 MG/Ipratropium 0.5 MG 3 ML INH ONE (23:51)
[2017-01-23] MEDS ORDERED: NS 0.9% 1000 ML* 1,000 ML IV ONE (00:38)
[2017-01-23] MEDS ORDERED: cefTRIAXone(*) 1 GM in NS 0.9% 50 ML* 50 ML IVPB ONE (00:38)
[2017-01-23] MEDS ORDERED: methylPREDNISolone SOD 40 MG* 1 ML VIAL IV ONE (00:41)
[2017-01-23] MEDS ORDERED: Albuterol/Ipratropium NEB.SOL* Albuterol 2.5 MG/Ipratropium 0.5 MG 3 ML INH ONE (00:41)
[2017-01-23] MEDS ORDERED: Magnesium Sulfate 1 GM IV* 1 GM/100 ML BAG IV ONE (00:43)
[2017-01-23 02:30] LABS: Hematocrit 41 % (35-47); Hemoglobin 13.4 g/dl (12.0-16.0); Mean Corpuscular HGB Conc 33 g/dl (31-36); Mean Corpuscular Hemoglobin 31 pg (27-31); Mean Corpuscular Volume 95 fL (80-97); Mean Platelet Volume 8 um3 (7.4-10.4); Red Blood Count 4.28 10^6/ul (4.0-5.4); Red Cell Distribution Width 14 % (10.5-15); White Blood Count 13.2 10^3/ul (3.5-10.8)
[2017-01-23] MEDS ORDERED: LORazepam INJ* 2 MG/ML 1 ML VIAL ONE (02:44)
[2017-01-23] MEDS ORDERED: LORazepam INJ* 2 MG/ML 1 ML VIAL IV PUSH ONE (02:48)
[2017-01-23 02:58] LABS: ALT 38 U/L (7-52); Albumin 3.7 g/dL (3.2-5.2); Alkaline Phosphatase 70 U/L (34-104); BUN/Creatinine Ratio 21.5 (8-20); Blood Urea Nitrogen 38 mg/dL (6-24); CO2 Carbon Dioxide 25 mmol/L (22-32); Calcium 9.1 mg/dL (8.6-10.3); Chloride 98 mmol/L (101-111); EGFR African American 36.2 (>60); EGFR Non-African American 28.1 (>60); Globulin 2.9 g/dL (2-4); Glucose 170 mg/dL (70-100); Sodium 136 mmol/L (133-145); Total Protein 6.6 g/dL (6.4-8.9)
[2017-01-23 03:00] LABS: Troponin I 0.03 ng/mL (<0.04)
[2017-01-23 03:09] LABS: Anion Gap 13 mmol/L (2-11)
[2017-01-23] MEDS ORDERED: Al Hydrox/Mg Hydrox/Simet LIQ* 30 ML UDC PO PRN (03:48)
[2017-01-23] MEDS ORDERED: Ondansetron INJ* 2 MG/ML VIAL IV PRN (03:48)
[2017-01-23] MEDS ORDERED: LORazepam TAB(*) 0.5 MG PO PRN (03:52)
[2017-01-23] MEDS ORDERED: Ipratropium 0.5MG/2.5ML NEB* 0.5 MG/2.5 ML NEB.SOLN INH SCH (04:00)
[2017-01-23] MEDS ORDERED: NS 0.9% 1000 ML* 1,000 ML IV SCH (04:00)
[2017-01-23] MEDS ORDERED: Azithromycin IV(*) 500 MG in NS 0.9% 250 ML* 250 ML IVPB ONE ×2 (04:13→06:00)
[2017-01-23] MEDS: Albuterol 2.5 MG/3 ML NEB.SOL* (0.083%) INH PRN ×3 (05:23→13:09)
--- NOTE | 2017-01-23 06:23 | ED ---
Mansoor Zhao Gabriel, scribed for Ryan Leavitt MD on 01/23/17 at 0028 . Shortness of Breath - HPI Summary HPI Summary: This patient is a 71 year old F BIBA to [facility] with a chief complaint of SOB since 6 days ago. She was seen then and discharge but states it has been getting worse and would like to be admitted. She has done 4 albuterol treatments WEIGHER AND CRUSHER and is on 15mg of prednisone. She uses a CPAP (5) and NC (3L) at home. Patient has a history of COPD and currently has lung cancer. Patient reports productive cough. - History of Current Complaint Chief Complaint: EDShortnessOfBreath Time Seen by Provider: 01/23/17 00:25 Hx Obtained From: Patient Onset/Duration: Lasting Days - 6, Still Present Dyspnea At: Rest Associated Signs & Symptoms: Cough (Productive) - Allergy/Home Medications Allergies/Adverse Reactions: Allergies Allergy/AdvReac Type Severity Reaction Status Date / Time Levofloxacin [From Levaquin] Allergy Mild Rash Verified 01/22/17 23:59 Vancomycin Allergy Mild Wheezing Verified 01/22/17 23:59 Epinephrine AdvReac Intermediate Incr Verified 01/22/17 23:59 HR/N/V/feels faint Infliximab [From Remicade] AdvReac Intermediate arm Verified 01/22/17 23:59 swelling/pain/itching Tetanus Toxoid AdvReac Intermediate arm Verified 01/22/17 23:59 pain/swelling/itching Doxycycline AdvReac Mild Vomiting Verified 01/22/17 23:59 Daptomycin AdvReac See Comment Verified 01/22/17 23:59 eggplant Allergy Mild Difficulty Uncoded 01/22/17 23:59 Breathing PMH/Surg Hx/FS Hx/Imm Hx Previously Healthy: No Endocrine/Hematology History: Reports: Hx Anticoagulant Therapy - coumadin Denies: Hx Diabetes Cardiovascular History: Reports: Hx Deep Vein Thrombosis, Hx Embolism - PE, Hx Hypotension, Hx Hypertension, Hx Syncope, 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 Denies: Hx Pacemaker/ICD Respiratory History: Reports: Hx Asthma - intermittent, Hx Chronic Bronchitis, Hx Chronic Obstructive Pulmonary Disease (COPD), Hx Pulmonary Embolism - 2010, Hx Sleep Apnea, Other Respiratory Problems/Disorders - O2 at home GI History: Reports: Hx Crohn's Disease, Hx Ileostomy, Other GI Disorders - Ileostomy placement History: Reports: Hx Acute Renal Failure, Hx Chronic Renal Failure, Other Problems/Disorders - Renal deficit per Dr Whittaker Denies: Hx Dialysis, Hx Renal Disease Musculoskeletal History: Reports: Hx Back Problems, Hx Osteoporosis, Hx Scoliosis - lumbar disc problems; scoliosis Sensory History: Reports: Hx Cataracts, Hx Contacts or Glasses, Hx Hearing Problem Denies: Hx Hearing Aid Opthamlomology History: Reports: Hx Cataracts, Hx Contacts or Glasses Neurological History: Reports: Hx Nerve Disease - neuropathy, 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 SEVERAL BOWEL RESECTIONS AND FISTULA, [facility] Hx Anesthesia Reactions: Yes - LOW BP - Immunization History Date of Tetanus Vaccine: utd Date of Influenza Vaccine: utd Infectious Disease History: No Infectious Disease History: Reports: Hx of Known/Suspected MRSA Denies: Traveled Outside the [place] in Last 30 Days - Family History Known Family History: Positive: Unknown - Parents very young., Other - Crohn's Disease - Social History Alcohol Use: Rare Alcohol Amount: 1 Q 2-3 MONTHS Hx Substance Use: No Substance Use Type: Reports: Other Substance Use Comment - Amount & Last Used: prescribed opium Hx Tobacco Use: Yes Smoking Status (MU): Former Smoker Type: Cigarettes Amount Used/How Often: 1-2 cigarettes per day Length of Time of Smoking/Using Tobacco: 53 years Have You Smoked in the Last Year: Yes Review of Systems Positive: Shortness Of Breath, Cough Negative: Slurred Speech All Other Systems Reviewed And Are Negative: Yes Physical Exam - Summary Physical Exam Summary: Appearance: Well appearing, no pain distress Skin: warm, dry, reflects adequate perfusion Head/face: normal Eyes: EOMI, RUMA ENT: gross amount of nasal drainage Neck: supple, non-tender Respiratory: CTA, breath sounds present, Corse in left base with diffuse wheezing, harsh dry cough Cardiovascular: pulses symmetrical, tachycardic but regular Abdomen: non-tender, soft, Ostomy bag Bowel: present Musculoskeletal: normal, strength/ROM intact Neuro: normal, sensory motor intact, A&Ox3 Triage Information Reviewed: Yes Vital Signs On Initial Exam: Initial Vitals Pulse Resp Pulse Ox 106 12 97 01/22/17 23:52 01/22/17 23:52 01/22/17 23:52 Vital Signs Reviewed: Yes - [place] Coma Scale Coma Scale Total: 15 Diagnostics - Vital Signs Vital Signs Temp Pulse Resp BP Pulse Ox 01/23/17 00:15 20 01/22/17 23:57 98.6 F 106 17 147/83 97 01/22/17 23:52 106 12 97 - Laboratory Lab Results: Lab Results 01/23/17 01/23/17 01/23/17 Range/Units 01:30 01:30 01:30 WBC 13.2 H (3.5-10.8) 10^3/ul RBC 4.28 (4.0-5.4) 10^6/ul Hgb 13.4 (12.0-16.0) g/dl Hct 41 (35-47) % MCV 95 (80-97) fL MCH 31 (27-31) pg MCHC 33 (31-36) g/dl RDW 14 (10.5-15) % Plt Count 261 (150-450) 10^3/ul MPV 8 (7.4-10.4) um3 Neut % (Auto) 65.8 (38-83) % Lymph % (Auto) 25.5 (25-47) % [place] % (Auto) 7.0 (1-9) % Eos % (Auto) 0.6 (0-6) % Baso % (Auto) 1.1 (0-2) % Absolute Neuts (auto) 8.7 H (1.5-7.7) 10^3/ul Absolute Lymphs (auto) 3.4 (1.0-4.8) 10^3/ul Absolute Monos (auto) 0.9 H (0-0.8) 10^3/ul Absolute Eos (auto) 0.1 (0-0.6) 10^3/ul Absolute Basos (auto) 0.1 (0-0.2) 10^3/ul Absolute Nucleated RBC 0.01 10^3/ul Nucleated RBC % 0.1 Sodium 136 (133-145) mmol/L Potassium TNP Chloride 98 L (101-111) mmol/L Carbon Dioxide 25 (22-32) mmol/L Anion Gap 13 H (2-11) mmol/L BUN 38 H (6-24) mg/dL Creatinine 1.77 H (0.51-0.95) mg/dL Est GFR ( Amer) 36.2 (>60) Est GFR (Non-Af Amer) 28.1 (>60) BUN/Creatinine Ratio 21.5 H (8-20) Glucose 170 H (70-100) mg/dL Lactic Acid 3.9 H* (0.5-2.0) mmol/L Calcium 9.1 (8.6-10.3) mg/dL Total Bilirubin 0.30 (0.2-1.0) mg/dL AST TNP ALT 38 (7-52) U/L Alkaline Phosphatase 70 (34-104) U/L Troponin I 0.03 (<0.04) ng/mL Total Protein 6.6 (6.4-8.9) g/dL Albumin 3.7 (3.2-5.2) g/dL Globulin 2.9 (2-4) g/dL Albumin/Globulin Ratio 1.3 (1-3) 01/23/17 Range/Units 03:23 WBC (3.5-10.8) 10^3/ul RBC (4.0-5.4) 10^6/ul Hgb (12.0-16.0) g/dl Hct (35-47) % MCV (80-97) fL MCH (27-31) pg MCHC (31-36) g/dl RDW (10.5-15) % Plt Count (150-450) 10^3/ul MPV (7.4-10.4) um3 Neut % (Auto) (38-83) % Lymph % (Auto) (25-47) % [place] % (Auto) (1-9) % Eos % (Auto) (0-6) % Baso % (Auto) (0-2) % Absolute Neuts (auto) (1.5-7.7) 10^3/ul Absolute Lymphs (auto) (1.0-4.8) 10^3/ul Absolute Monos (auto) (0-0.8) 10^3/ul Absolute Eos (auto) (0-0.6) 10^3/ul Absolute Basos (auto) (0-0.2) 10^3/ul Absolute Nucleated RBC 10^3/ul Nucleated RBC % Sodium (133-145) mmol/L Potassium 4.0 Chloride (101-111) mmol/L Carbon Dioxide (22-32) mmol/L Anion Gap (2-11) mmol/L BUN (6-24) mg/dL Creatinine (0.51-0.95) mg/dL Est GFR ( Amer) (>60) Est GFR (Non-Af Amer) (>60) BUN/Creatinine Ratio (8-20) Glucose (70-100) mg/dL Lactic Acid (0.5-2.0) mmol/L Calcium (8.6-10.3) mg/dL Total Bilirubin (0.2-1.0) mg/dL AST 30 ALT (7-52) U/L Alkaline Phosphatase (34-104) U/L Troponin I (<0.04) ng/mL Total Protein (6.4-8.9) g/dL Albumin (3.2-5.2) g/dL Globulin (2-4) g/dL Albumin/Globulin Ratio (1-3) Result Diagrams: 01/23/17 01:30 01/23/17 03:23 Lab Statement: Any lab studies that have been ordered have been reviewed, and results considered in the medical decision making process. - Radiology CXR Radiology Interpretation Completed By: ED Physician - modular mass in right base and right upper lobe scaring, unchanged from previous - EKG 01:41 Cardiac Rate: Tachycardia EKG Rhythm: Sinus Tachycardia - 106 BPM EKG Interpretation: LAD, Normal ST Re-Evaluation - Re-Evaluation First Eval Change: Improved - pt felt anxious initially with steroid and felt throat was tight. This subsided. Breathing improved modestly Course/Dx - Course Course Of Treatment: Pt with longstanding COPD on O2 with viral exacerbation. Mult drug sensitivilites. Small dose of steroid and she could tolerate larger doses in past. Failed outpt low dose steroid. Increased O2 demand. Refused ABG. Start abx for exacerbation. No infiltrate. Admit for further. - Diagnoses Provider Diagnoses: URI (upper respiratory infection), COPD exacerbation, Anxiety disorder, Dehydration - Physician Notifications Discussed Care of Patient With: Rolanda Shay Time Discussed With Above Provider: 03:07 Instructed by Provider To: Other - Discussed patient care with Dr. Shay, she has agreed to admit the patient. - Critical Care Time Critical Care Time: 30-74 min - CCT is EXCLUSIVE of separately billable procedures Discharge - Discharge Plan Condition: Stable Disposition: ADMITTED TO [facility] documentation as recorded by the Mansoor ray Gabriel accurately reflects the service I personally performed and the decisions made by , Ryan Leavitt MD.
[2017-01-23] MEDS: Acetaminophen TAB* 325 MG PO PRN ×4 (06:26→23:18)
[2017-01-23] MEDS: Opium Tincture* 6 MG/0.6 ML ORAL.LIQ SYRINGE PO SCH ×5 (06:27→22:56)
--- NOTE | 2017-01-23 06:59 | HP ---
CC: Suzette France MD * HISTORY AND PHYSICAL: DATE OF ADMISSION: 01/23/17 TIME OF EVALUATION: 0400. PRIMARY CARE PHYSICIAN: Suzette France MD CHIEF COMPLAINT: Shortness of breath. HISTORY OF PRESENT ILLNESS: This is a 71-year-old female with past medical history of COPD, on 3 L, with lung cancer, who was set up to get radiation this week, followed by Dr. Mora and Dr. Wang, who presented to the emergency room, was having progressively worsening shortness of breath. The patient states her symptoms began on 01/16/17 with shortness of breath and dry cough. She was seen in the emergency room on 01/17/17, had labs and imaging, was sent home. Her symptoms got progressively worse. She has lot of postnasal drip, increased shortness of breath with dry cough. She came in to the emergency room , had labs and imaging. She was given 1 L of fluid, 40 mg of Solu-Medrol, 1 g of mag, 1 mg of Ativan, ceftriaxone, and was referred to the hospitalist service for further evaluation. The patient is also complaining of pleuritic pain. No nausea or vomiting. She has no appetite for the past several days. No dysuria. She has had some abdominal discomfort. She is scheduled to have radiation treatment on small lung nodule on the right. She was supposed to have it 01/22/17, but was postponed to 01/24/17 due to her illness. She states her weight goes up and down. Otherwise, remaining review of systems is negative. PAST MEDICAL HISTORY: 1. History of COPD, on 3 L, followed by Dr. Zuniga. She is on CPAP at night. 2. Crohn's disease. 3. Lung cancer, followed by Dr. Mora and Dr. Wang. 4. CKD, stage 3. 5. History of DVT and PE, on anticoagulation. 6. Restless legs syndrome. 7. Anxiety. 8. Depression. PAST SURGICAL HISTORY: 1. History of colon resection with ileostomy. 2. 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 3. She has had multiple abdominal surgeries related to her Crohn's. MEDICATIONS: 1. Sensipar 30 mg p.o. daily. 2. Aspirin 81 mg p.o. daily. 3. Calcitriol 0.25 mcg daily. 4. Prednisone, was on 5 mg and just went up to 7.5 mg for the past [address] Zuniga. 5. Lorazepam 0.5 mg b.i.d. as needed for anxiety. 6. Mucinex 600 mg p.o. b.i.d. as needed for cough. 7. Spiriva inhaler. 8. Coumadin 2 mg daily. 9. Paxil 30 mg daily. 10. Opium tincture 10 mg/mL 0.6 mg 5 times a day, adjusted as needed to slow down diarrhea. 11. B12 injections every week. 12. Ipratropium 3 to 4 times a day every 6 to 8 hours. ALLERGIES: REMICADE, TETANUS, EPINEPHRINE, VANCOMYCIN, DAPTOMYCIN, and EGG PLANT. FAMILY HISTORY: Reviewed, noncontributory. SOCIAL HISTORY: The patient lives at home with her , Nikki, who is her healthcare proxy. She is still smoking 3 to 4 cigarettes a day. She has been smoking for the past 60 years. Her peak was 3 packs per day. Occasional marijuana use. No alcohol use. Her code status is DNR/DNI with trial of BiPAP. REVIEW OF SYSTEMS: A 14-point review of systems reviewed. Pertinent positives and negatives as mentioned in the HPI, otherwise negative. PHYSICAL EXAMINATION GENERAL: Mildly ill appearing, with at the bedside. VITAL SIGNS: Temp 98.6, pulse rate 102, respiratory rate 18, oxygen saturation 96% on 4 L, blood pressure 112/76. HEENT: Head normocephalic. Pupils are equal and reactive, anicteric. Oropharynx: Mucous membranes dry. Posterior oropharynx erythematous. No exudate. NECK: Supple. No lymphadenopathy. RESPIRATORY: Minimal aeration on the right lung. Increased work of breathing. Prolonged expiratory phase, bilateral wheezes. CARDIAC: Tachycardia. Soft systolic murmur heard throughout. ABDOMEN: Soft, nontender. EXTREMITIES: No clubbing, cyanosis, or edema. NEUROLOGIC: Alert and oriented x3. No focal neurologic deficits. DIAGNOSTIC STUDIES/LAB DATA: White count 13.2, hemoglobin 13.4, hematocrit 41 , platelets 261. Sodium 136, potassium is pending, chloride 98, bicarb 25, BUN 38, creatinine 1.77, lactate is 3.9. Troponin 0.03. Chest x-ray: Hyperinflated lungs. No significant change from prior chest x- ray. ASSESSMENT AND PLAN: This is a 71-year-old female with past medical history of chronic obstructive pulmonary disease, on 3 L, lung cancer, who presents to the emergency room with worsening shortness of breath and cough. Shortness of breath and cough. Assessment: The patient's history and physical most consistent with chronic obstructive pulmonary disease exacerbation. Concerning for an underlying bacterial infection such as pneumonia that has not yet blossomed. She is also immunosuppressed. Plan: We will continue her on prednisone 40. Continue her inhaler regimen and start her on albuterol q.2 hours as needed. We will give her IV fluids and continue her on antibiotics. We will add azithromycin to the ceftriaxone and check urine legionella and pneumococcal, place her on CPAP at night as well. CHRONIC MEDICAL PROBLEMS: 1. History of DVT/PE. Assessment and plan: We will check an INR. If the patient is subtherapeutic and she is not clinically improving, consider followup for PE. 2. Lung cancer: The patient's is going to call Dr. Wang to let him know that she will not be able to make a radiation treatment. He may want to see her in the hospital to evaluate for radiation as an inpatient. 3. Anxiety: Continue lorazepam as needed. 4. Depression: Continue Paxil as needed. 5. High stool output via ostomy: Continue opium. FEN: We will place the patient on a regular diet with IV fluids. DVT prophylaxis: The patient scores high risk. She is on Coumadin. Code status: The patient is DNR/DNI with trial BiPAP. PATIENT TIME: Greater than 60 minutes was spent doing the history and physical , more than half the time spent in direct patient contact. [id number]/[facility] #: [id number] [facility]ENTERMax
--- NOTE | 2017-01-23 08:06 | RAD ---
Indication: Shortness of breath, COPD. 2 views of the chest including dual energy PA views demonstrate no mediastinal shift. Lung randall appear hyperinflated. No pleural fluid, pneumonia or pneumothorax is noted. When compared to previous exam of January 17, 2017 overall appearance appears to be stable. Nodule is noted in the right base and right upper lobe. IMPRESSION: COPD. Mass in the right upper lobe and right lower lobe. No change since previous exam of January 17, 2017.
[2017-01-23] MEDS: Tiotropium CAP.INH* CAP.INH/18 MCG (USE ORDER SET !) INH SCH (08:18)
[2017-01-23] MEDS: Ipratropium 0.5MG/2.5ML NEB* 0.5 MG/2.5 ML NEB.SOLN INH SCH ×3 (08:18→20:01)
[2017-01-23] MEDS ORDERED: Spiriva Inhaler DEVICE* 1 EACH DEVICE SCH (09:00)
[2017-01-23] MEDS: Calcitriol CAP* 0.25 MCG PO SCH (09:55)
[2017-01-23] MEDS: predniSONE TAB* 20 MG PO SCH (09:55)
[2017-01-23] MEDS: Cinacalcet TAB* 30 MG PO SCH (09:55)
[2017-01-23] MEDS: PARoxetine HCL TAB* 10 MG PO SCH (09:56)
[2017-01-23] MEDS: Aspirin EC Low Dose* 81 MG TAB.EC PO SCH (09:56)
[2017-01-23] MEDS ORDERED: methylPREDNISolone SOD 40 MG* 1 ML VIAL ONE (11:13)
[2017-01-23 11:51] LABS: PCO2 Arterial 39 mmHg (35-45)
--- NOTE | 2017-01-23 12:04 | PN ---
Subjective Date of Service: 01/23/17 Interval History: Some cough, little subj change overnight. Slept poorly due to frequent interruptions, intake process. Objective Active Medications: Acetaminophen (Tylenol Tab*) 650 mg PO Q4H PRN PRN Reason: FEVER/PAIN Last Admin: 01/23/17 06:26 Dose: 650 mg Al Hydrox/Mg Hydrox/Simethicone (Maalox Plus*) 30 ml PO Q6H PRN PRN Reason: INDIGESTION Albuterol (Ventolin 2.5 Mg/3 Ml Neb.Vesna*) 2.5 mg INH Q2H PRN PRN Reason: SOB/WHEEZING Last Admin: 01/23/17 11:10 Dose: 2.5 mg Aspirin (Aspirin Ec Low Dose*) 81 mg PO DAILY [facility] Last Admin: 01/23/17 09:56 Dose: 81 mg Calcitriol (Rocaltrol Cap*) 0.25 mcg PO DAILY [facility] Last Admin: 01/23/17 09:55 Dose: 0.25 mcg Cinacalcet (Sensipar Tab*) 30 mg PO DAILY [facility] Last Admin: 01/23/17 09:55 Dose: 30 mg Device (Tiotropium Inhaler Device*) 1 each .SEE ORDER .USE w/ SPIRIVA CAPS [facility] Guaifenesin (Mucinex*) 600 mg PO BID PRN PRN Reason: COUGH Sodium Chloride (Ns 0.9% 1000 Ml*) 1,000 mls @ 125 mls/hr IV PER RATE [facility] Last Admin: 01/23/17 05:31 Dose: 125 mls/hr Azithromycin 250 mg/ Dextrose 250 mls @ 250 mls/hr IVPB Q24H [facility] Ceftriaxone Sodium 1,000 mg/ (Dextrose) 50 mls @ 200 mls/hr IVPB Q24H [facility] Ipratropium [place] (Atrovent 0.5 Mg Neb.Vesna*) 0.5 mg INH [id number] AWAKE [facility] Last Admin: 01/23/17 08:18 Dose: 0.5 mg Lorazepam (Ativan Tab(*)) 0.5 mg PO Q6H PRN PRN Reason: ANXIETY Last Admin: 01/23/17 11:06 Dose: 0.5 mg Ondansetron HCl (Zofran Inj*) 4 mg IV Q4H PRN PRN Reason: NAUSEA/VOMITING Opium Tincture (Opium Tincture*) 0.6 mg PO Q4HR [facility] Last Admin: 01/23/17 09:56 Dose: 0.6 mg Paroxetine HCl (Paxil Tab*) 30 mg PO DAILY [facility] Last Admin: 01/23/17 09:56 Dose: 30 mg Pharmacy Profile Note (Coumadin Per Pharmacy*) 1 note FOLLOW UP .PER PHARMACY PROTOC [facility] PRN Reason: Protocol Prednisone (Deltasone Tab*) 40 mg PO DAILY [facility] Last Admin: 01/23/17 09:55 Dose: 40 mg Tiotropium [place] (Spiriva Cap.Inh*) 1 cap INH DAILY [facility] Last Admin: 01/23/17 08:18 Dose: 1 cap Warfarin Sodium (Coumadin Tab(*)) 2 mg PO DAILY@1700 [facility] PRN Reason: Protocol Vital Signs 01/23/17 01/23/17 01/23/17 04:00 04:30 05:13 Temperature 97.9 F Pulse Rate 104 103 99 Respiratory 26 Rate Blood Pressure 140/53 134/66 (mmHg) O2 Sat by Pulse 82 95 94 Oximetry 01/23/17 01/23/17 01/23/17 05:24 06:27 07:41 Temperature 98.0 F Pulse Rate 93 76 Respiratory 20 24 20 Rate Blood Pressure 117/53 (mmHg) O2 Sat by Pulse 96 98 Oximetry 01/23/17 01/23/17 01/23/17 08:00 08:20 09:56 Temperature Pulse Rate 92 Respiratory 22 20 20 Rate Blood Pressure (mmHg) O2 Sat by Pulse 97 Oximetry 01/23/17 01/23/17 01/23/17 09:59 11:06 11:10 Temperature Pulse Rate 125 Respiratory 20 32 35 Rate Blood Pressure (mmHg) O2 Sat by Pulse 98 Oximetry 01/23/17 11:13 Temperature 98.5 F Pulse Rate 112 Respiratory 22 Rate Blood Pressure 187/83 (mmHg) O2 Sat by Pulse 94 Oximetry Oxygen Devices in Use Now: Nasal Cannula Appearance: Alert, partly up in bed. In fair spirits. Appears depressed but otherwise comfortable. No cough during my visit. Eyes: No Scleral Icterus Neck: NL Appearance and Movements; NL JVP, No Thyroid Enlargement, Masses Respiratory: Symmetrical Chest Expansion and Respiratory Effort, Clear to Percussion, - - mild to mod rhonchi BL, good air movement Extremities: No Edema, No Clubbing, Cyanosis, - Skin: No Rash or Ulcers, No Nodules or Sclerosis, - Neurological: Alert and Oriented x 3, NL Sensation Result Diagrams: 01/23/17 01:30 01/23/17 03:23 Additional Lab and Data: Lab Results 01/23/17 01/23/17 01/23/17 Range/Units 01: 01:30 01:30 WBC 13.2 H (3.5-10.8) 10^3/ul RBC 4.28 (4.0-5.4) 10^6/ul Hgb 13.4 (12.0-16.0) g/dl Hct 41 (35-47) % MCV 95 (80-97) fL MCH 31 (27-31) pg MCHC 33 (31-36) g/dl RDW 14 (10.5-15) % Plt Count 261 (150-450) 10^3/ul MPV 8 (7.4-10.4) um3 Neut % (Auto) 65.8 (38-83) % Lymph % (Auto) 25.5 (25-47) % [place] % (Auto) 7.0 (1-9) % Eos % (Auto) 0.6 (0-6) % Baso % (Auto) 1.1 (0-2) % Absolute Neuts (auto) 8.7 H (1.5-7.7) 10^3/ul Absolute Lymphs (auto) 3.4 (1.0-4.8) 10^3/ul Absolute Monos (auto) 0.9 H (0-0.8) 10^3/ul Absolute Eos (auto) 0.1 (0-0.6) 10^3/ul Absolute Basos (auto) 0.1 (0-0.2) 10^3/ul Absolute Nucleated RBC 0.01 10^3/ul Nucleated RBC % 0.1 Sodium 136 (133-145) mmol/L Potassium TNP Chloride 98 L (101-111) mmol/L Carbon Dioxide 25 (22-32) mmol/L Anion Gap 13 H (2-11) mmol/L BUN 38 H (6-24) mg/dL Creatinine 1.77 H (0.51-0.95) mg/dL Est GFR ( Amer) 36.2 (>60) Est GFR (Non-Af Amer) 28.1 (>60) BUN/Creatinine Ratio 21.5 H (8-20) Glucose 170 H (70-100) mg/dL Lactic Acid 3.9 H* (0.5-2.0) mmol/L Calcium 9.1 (8.6-10.3) mg/dL Total Bilirubin 0.30 (0.2-1.0) mg/dL AST TNP ALT 38 (7-52) U/L Alkaline Phosphatase 70 (34-104) U/L Troponin I 0.03 (<0.04) ng/mL Total Protein 6.6 (6.4-8.9) g/dL Albumin 3.7 (3.2-5.2) g/dL Globulin 2.9 (2-4) g/dL Albumin/Globulin Ratio 1.3 (1-3) 01/23/ Range/Units 03:23 WBC (3.5-10.8) 10^3/ul RBC (4.0-5.4) 10^6/ul Hgb (12.0-16.0) g/dl Hct (35-47) % MCV (80-97) fL MCH (27-31) pg MCHC (31-36) g/dl RDW (10.5-15) % Plt Count (150-450) 10^3/ul MPV (7.4-10.4) um3 Neut % (Auto) (38-83) % Lymph % (Auto) (25-47) % [place] % (Auto) (1-9) % Eos % (Auto) (0-6) % Baso % (Auto) (0-2) % Absolute Neuts (auto) (1.5-7.7) 10^3/ul Absolute Lymphs (auto) (1.0-4.8) 10^3/ul Absolute Monos (auto) (0-0.8) 10^3/ul Absolute Eos (auto) (0-0.6) 10^3/ul Absolute Basos (auto) (0-0.2) 10^3/ul Absolute Nucleated RBC 10^3/ul Nucleated RBC % Sodium (133-145) mmol/L Potassium 4.0 Chloride (101-111) mmol/L Carbon Dioxide (22-32) mmol/L Anion Gap (2-11) mmol/L BUN (6-24) mg/dL Creatinine (0.51-0.95) mg/dL Est GFR ( Amer) (>60) Est GFR (Non-Af Amer) (>60) BUN/Creatinine Ratio (8-20) Glucose (70-100) mg/dL Lactic Acid (0.5-2.0) mmol/L Calcium (8.6-10.3) mg/dL Total Bilirubin (0.2-1.0) mg/dL AST 30 ALT (7-52) U/L Alkaline Phosphatase (34-104) U/L Troponin I (<0.04) ng/mL Total Protein (6.4-8.9) g/dL Albumin (3.2-5.2) g/dL Globulin (2-4) g/dL Albumin/Globulin Ratio (1-3) Assess/Plan/Problems-Billing Assessment: - Patient Problems (1) COPD exacerbation Current Visit: No Status: Acute Priority: High Code(s): J44.1 - CHRONIC OBSTRUCTIVE PULMONARY DISEASE W (ACUTE) EXACERBATION SNOMED Code(s): 410166859084597 Comment: Nurse felt patient was worse and an additional 60 mg IV methyprednisolone given 01/23. ABG's OK 01/23/17. Continue azith/ceftri. Pt states she last smoked 01/17/17. (2) Lung cancer Current Visit: No Status: Acute Code(s): C34.90 - MALIGNANT NEOPLASM OF UNSP PART OF UNSP BRONCHUS OR LUNG SNOMED Code(s): 074742589 Comment: Patient missed the start of her RT tx, was supposed to go MWF. Consider starting 01/27 at the earliest. (3) History of pulmonary embolism Current Visit: No Status: Chronic Priority: Medium Code(s): Z86.711 - PERSONAL HISTORY OF PULMONARY EMBOLISM SNOMED Code(s): 490073446 Comment: Continue warfarin at home dose. INR 01/24/17. (4) CKD (chronic kidney disease), stage IV Current Visit: No Status: Chronic Code(s): N18.4 - CHRONIC KIDNEY DISEASE, STAGE 4 (SEVERE) SNOMED Code(s): 118545297 Comment: About at her baseline. (5) Crohn's disease Current Visit: No Status: Chronic Code(s): K50.90 - CROHN'S DISEASE, UNSPECIFIED, WITHOUT COMPLICATIONS SNOMED Code(s): 39661225 Comment: S/P ileostomy. (6) Tobacco abuse Current Visit: No Status: Acute Code(s): Z72.0 - TOBACCO USE SNOMED Code(s ): 735987268 Comment: Pt advised to quit smoking.
[2017-01-23] MEDS: LORazepam TAB(*) 0.5 MG PO PRN ×2 (15:09→23:17)
[2017-01-23] MEDS ORDERED: Warfarin TAB(*) 2 MG PO ONE (17:00)
[2017-01-23] MEDS: guaiFENesin ER TAB 600 MG PO PRN (23:17)
[2017-01-24] MEDS: Ipratropium 0.5MG/2.5ML NEB* 0.5 MG/2.5 ML NEB.SOLN INH SCH ×4 (01:12→20:22)
[2017-01-24] MEDS: Morphine INJ* 2 MG/ML 1 ML SYRINGE (TWO MG - NEW SYRINGE VERSION) IV PRN ×2 (02:05→23:07)
[2017-01-24] MEDS: Acetaminophen TAB* 325 MG PO PRN ×4 (03:35→20:52)
[2017-01-24] MEDS: Opium Tincture* 6 MG/0.6 ML ORAL.LIQ SYRINGE PO SCH ×6 (03:36→21:00)
[2017-01-24] MEDS: cefTRIAXone VIAL(*) 1,000 MG in D5W 50 ML BAG* 50 ML IVPB SCH (05:34)
[2017-01-24] MEDS: Azithromycin IV(*) 250 MG in D5W 250 ML BAG* 250 ML IVPB SCH (07:07)
[2017-01-24 07:13] LABS: Hematocrit 36 % (35-47); Mean Corpuscular HGB Conc 34 g/dl (31-36); Mean Corpuscular Hemoglobin 32 pg (27-31); Mean Corpuscular Volume 93 fL (80-97); Mean Platelet Volume 8 um3 (7.4-10.4); Red Blood Count 3.81 10^6/ul (4.0-5.4); Red Cell Distribution Width 14 % (10.5-15); White Blood Count 19.2 10^3/ul (3.5-10.8)
[2017-01-24 07:14] LABS: Comments Flag Yes
[2017-01-24 07:15] LABS: Add Diff/Slide Review? Slide Review Added
[2017-01-24 07:29] LABS: BUN/Creatinine Ratio 18.7 (8-20); Calcium 8.4 mg/dL (8.6-10.3); EGFR African American 43.8 (>60)
[2017-01-24] MEDS: predniSONE TAB* 20 MG PO SCH (09:35)
[2017-01-24] MEDS: Cinacalcet TAB* 30 MG PO SCH (09:35)
[2017-01-24] MEDS: PARoxetine HCL TAB* 10 MG PO SCH (09:35)
[2017-01-24] MEDS: Aspirin EC Low Dose* 81 MG TAB.EC PO SCH (09:35)
[2017-01-24] MEDS: LORazepam TAB(*) 0.5 MG PO PRN ×4 (09:35→21:08)
[2017-01-24] MEDS: Calcitriol CAP* 0.25 MCG PO SCH (09:35)
[2017-01-24] MEDS: Tiotropium CAP.INH* CAP.INH/18 MCG (USE ORDER SET !) INH SCH (10:08)
--- NOTE | 2017-01-24 13:23 | PN ---
Subjective Date of Service: 01/24/17 Interval History: Cough and SOB somewhat better but not at her baseline. Pt concerned that her high ilesotomy outpt is causing dehydraiton. Objective Active Medications: Acetaminophen (Tylenol Tab*) 650 mg PO Q4H PRN PRN Reason: FEVER/PAIN Last Admin: 01/24/17 09:36 Dose: 650 mg Al Hydrox/Mg Hydrox/Simethicone (Maalox Plus*) 30 ml PO Q6H PRN PRN Reason: INDIGESTION Albuterol (Ventolin 2.5 Mg/3 Ml Neb.Vesna*) 2.5 mg INH Q2H PRN PRN Reason: SOB/WHEEZING Last Admin: 01/23/17 13:09 Dose: 2.5 mg Aspirin (Aspirin Ec Low Dose*) 81 mg PO DAILY [facility] Last Admin: 01/24/17 09:35 Dose: 81 mg Calcitriol (Rocaltrol Cap*) 0.25 mcg PO DAILY [facility] Last Admin: 01/24/17 09:35 Dose: 0.25 mcg Cinacalcet (Sensipar Tab*) 30 mg PO DAILY [facility] Last Admin: 01/24/17 09:35 Dose: 30 mg Device (Tiotropium Inhaler Device*) 1 each .SEE ORDER .USE w/ SPIRIVA CAPS [facility] Guaifenesin (Mucinex*) 600 mg PO BID PRN PRN Reason: COUGH Last Admin: 01/23/17 23:17 Dose: 600 mg Azithromycin 250 mg/ Dextrose 250 mls @ 250 mls/hr IVPB Q24H [facility] Last Admin: 01/24/17 07:07 Dose: 250 mls/hr Ceftriaxone Sodium 1,000 mg/ (Dextrose) 50 mls @ 200 mls/hr IVPB Q24H [facility] Last Admin: 01/24/17 05:34 Dose: 200 mls/hr Potassium Chloride/Dextrose (D5w 1/2 Ns Kcl 20 Meq 1000 Ml*) 1,000 mls @ 60 mls /hr IV PER RATE [facility] Ipratropium [place] (Atrovent 0.5 Mg Neb.Vesna*) 0.5 mg INH [id number] AWAKE [facility] Last Admin: 01/24/17 10:02 Dose: 0.5 mg Lorazepam (Ativan Tab(*)) 0.5 mg PO Q4H PRN PRN Reason: ANXIETY Last Admin: 01/24/17 09:35 Dose: 0.5 mg Morphine Sulfate (Morphine Inj (Syringe)*) 1 mg IV Q4H PRN PRN Reason: PAIN Last Admin: 01/24/17 02:05 Dose: 1 mg Ondansetron HCl (Zofran Inj*) 4 mg IV Q4H PRN PRN Reason: NAUSEA/VOMITING Opium Tincture (Opium Tincture*) 0.6 mg PO Q4HR [facility] Last Admin: 01/24/17 09:34 Dose: 0.6 mg Paroxetine HCl (Paxil Tab*) 30 mg PO DAILY [facility] Last Admin: 01/24/17 09:35 Dose: 30 mg Pharmacy Profile Note (Coumadin Per Pharmacy*) 1 note FOLLOW UP .PER PHARMACY PROTOC [facility] PRN Reason: Protocol Prednisone (Deltasone Tab*) 30 mg PO DAILY [facility] Tiotropium [place] (Spiriva Cap.Inh*) 1 cap INH DAILY [facility] Last Admin: 01/24/17 10:08 Dose: 1 cap Vital Signs 01/23/17 01/23/17 01/23/17 14:10 15:09 15:25 Temperature 98.5 F Pulse Rate 68 Respiratory 24 16 26 Rate Blood Pressure 134/77 (mmHg) O2 Sat by Pulse 95 Oximetry 01/23/17 01/23/17 01/23/17 16:02 16:32 18:14 Temperature Pulse Rate Respiratory 24 24 24 Rate Blood Pressure (mmHg) O2 Sat by Pulse Oximetry 01/23/17 01/23/17 01/23/17 19:25 20:00 20:03 Temperature 99.0 F Pulse Rate 77 80 Respiratory 18 18 16 Rate Blood Pressure 145/60 (mmHg) O2 Sat by Pulse 97 98 Oximetry 01/23/17 01/23/17 01/23/17 21:06 22:56 23:17 Temperature Pulse Rate Respiratory 18 18 18 Rate Blood Pressure (mmHg) O2 Sat by Pulse Oximetry 01/24/17 01/24/17 01/24/17 00:07 01:15 02:05 Temperature 99.3 F Pulse Rate 96 80 Respiratory 20 20 20 Rate Blood Pressure 129/98 (mmHg) O2 Sat by Pulse 100 98 Oximetry 01/24/17 01/24/17 01/24/17 02:10 02:11 02:33 Temperature Pulse Rate Respiratory 20 20 18 Rate Blood Pressure (mmHg) O2 Sat by Pulse Oximetry 01/24/17 01/24/17 01/24/17 03:13 03:36 04:13 Temperature 98.5 F Pulse Rate 83 Respiratory 20 18 20 Rate Blood Pressure 161/56 (mmHg) O2 Sat by Pulse 100 Oximetry 01/24/17 01/24/17 01/24/17 07:21 07:24 07:38 Temperature 98.0 F Pulse Rate 70 Respiratory 18 20 18 Rate Blood Pressure 138/53 (mmHg) O2 Sat by Pulse 99 Oximetry 01/24/17 01/24/17 01/24/17 08:00 09:34 09:35 Temperature Pulse Rate Respiratory 18 18 18 Rate Blood Pressure (mmHg) O2 Sat by Pulse Oximetry 01/24/17 01/24/17 01/24/17 10:02 12:18 12:39 Temperature 98.2 F Pulse Rate 80 75 Respiratory 16 18 Rate Blood Pressure 130/46 (mmHg) O2 Sat by Pulse 100 99 Oximetry Oxygen Devices in Use Now: Nasal Cannula Appearance: Alert, on her side in bed, blanket pulled up to her chin. In fair spirits. Looks comfortable. Eyes: No Scleral Icterus Neck: NL Appearance and Movements; NL JVP, No Thyroid Enlargement, Masses Respiratory: Symmetrical Chest Expansion and Respiratory Effort, Clear to Auscultation, Clear to Percussion Cardiovascular: NL Sounds; No Murmurs; No JVD, No Edema Extremities: No Edema, No Clubbing, Cyanosis, - Skin: No Rash or Ulcers, No Nodules or Sclerosis, - Neurological: Alert and Oriented x 3, NL Sensation Result Diagrams: 01/24/17 06:58 01/24/17 06:58 Additional Lab and Data: Lab Results 01/23/17 01/23/17 01/23/17 Range/Units 01:30 01:30 01:30 WBC 13.2 H (3.5-10.8) 10^3/ul RBC 4.28 (4.0-5.4) 10^6/ul Hgb 13.4 (12.0-16.0) g/dl Hct 41 (35-47) % MCV 95 (80-97) fL MCH 31 (27-31) pg MCHC 33 (31-36) g/dl RDW 14 (10.5-15) % Plt Count 261 (150-450) 10^3/ul MPV 8 (7.4-10.4) um3 Neut % (Auto) 65.8 (38-83) % Lymph % (Auto) 25.5 (25-47) % [place] % (Auto) 7.0 (1-9) % Eos % (Auto) 0.6 (0-6) % Baso % (Auto) 1.1 (0-2) % Absolute Neuts (auto) 8.7 H (1.5-7.7) 10^3/ul Absolute Lymphs (auto) 3.4 (1.0-4.8) 10^3/ul Absolute Monos (auto) 0.9 H (0-0.8) 10^3/ul Absolute Eos (auto) 0.1 (0-0.6) 10^3/ul Absolute Basos (auto) 0.1 (0-0.2) 10^3/ul Absolute Nucleated RBC 0.01 10^3/ul Nucleated RBC % 0.1 Sodium 136 (133-145) mmol/L Potassium TNP Chloride 98 L (101-111) mmol/L Carbon Dioxide 25 (22-32) mmol/L Anion Gap 13 H (2-11) mmol/L BUN 38 H (6-24) mg/dL Creatinine 1.77 H (0.51-0.95) mg/dL Est GFR ( Amer) 36.2 (>60) Est GFR (Non-Af Amer) 28.1 (>60) BUN/Creatinine Ratio 21.5 H (8-20) Glucose 170 H (70-100) mg/dL Lactic Acid 3.9 H* (0.5-2.0) mmol/L Calcium 9.1 (8.6-10.3) mg/dL Total Bilirubin 0.30 (0.2-1.0) mg/dL AST TNP ALT 38 (7-52) U/L Alkaline Phosphatase 70 (34-104) U/L Troponin I 0.03 (<0.04) ng/mL Total Protein 6.6 (6.4-8.9) g/dL Albumin 3.7 (3.2-5.2) g/dL Globulin 2.9 (2-4) g/dL Albumin/Globulin Ratio 1.3 (1-3) 01/23/17 Range/Units 03:23 WBC (3.5-10.8) 10^3/ul RBC (4.0-5.4) 10^6/ul Hgb (12.0-16.0) g/dl Hct (35-47) % MCV (80-97) fL MCH (27-31) pg MCHC (31-36) g/dl RDW (10.5-15) % Plt Count (150-450) 10^3/ul MPV (7.4-10.4) um3 Neut % (Auto) (38-83) % Lymph % (Auto) (25-47) % [place] % (Auto) (1-9) % Eos % (Auto) (0-6) % Baso % (Auto) (0-2) % Absolute Neuts (auto) (1.5-7.7) 10^3/ul Absolute Lymphs (auto) (1.0-4.8) 10^3/ul Absolute Monos (auto) (0-0.8) 10^3/ul Absolute Eos (auto) (0-0.6) 10^3/ul Absolute Basos (auto) (0-0.2) 10^3/ul Absolute Nucleated RBC 10^3/ul Nucleated RBC % Sodium (133-145) mmol/L Potassium 4.0 Chloride (101-111) mmol/L Carbon Dioxide (22-32) mmol/L Anion Gap (2-11) mmol/L BUN (6-24) mg/dL Creatinine (0.51-0.95) mg/dL Est GFR ( Amer) (>60) Est GFR (Non-Af Amer) (>60) BUN/Creatinine Ratio (8-20) Glucose (70-100) mg/dL Lactic Acid (0.5-2.0) mmol/L Calcium (8.6-10.3) mg/dL Total Bilirubin (0.2-1.0) mg/dL AST 30 ALT (7-52) U/L Alkaline Phosphatase (34-104) U/L Troponin I (<0.04) ng/mL Total Protein (6.4-8.9) g/dL Albumin (3.2-5.2) g/dL Globulin (2-4) g/dL Albumin/Globulin Ratio (1-3) Assess/Plan/Problems-Billing Assessment: - Patient Problems (1) COPD exacerbation Current Visit: No Status: Acute Priority: High Code(s): J44.1 - CHRONIC OBSTRUCTIVE PULMONARY DISEASE W (ACUTE) EXACERBATION SNOMED Code(s): 193848554246005 Comment: Nurse felt patient was worse and an additional 60 mg IV methyprednisolone given 01/23. ABG's OK 01/23/17. Continue azith/ceftri. Pt states she last smoked 01/17/17. Prednisone taper. (2) Lung cancer Current Visit: No Status: Acute Code(s): C34.90 - MALIGNANT NEOPLASM OF UNSP PART OF UNSP BRONCHUS OR LUNG SNOMED Code(s): 898283951 Comment: Patient missed the start of her RT tx, was supposed to go MWF. Consider starting 01/27 at the earliest. Discussed with Dr. Wang 01/23/17. (3) History of pulmonary embolism Current Visit: No Status: Chronic Priority: Medium Code(s): Z86.711 - PERSONAL HISTORY OF PULMONARY EMBOLISM SNOMED Code(s): 086889354 Comment: Continue warfarin at home dose. INR 01/24/17 was 1.96, repeat in a few days. (4) CKD (chronic kidney disease), stage IV Current Visit: No Status: Chronic Code(s): N18.4 - CHRONIC KIDNEY DISEASE, STAGE 4 (SEVERE) SNOMED Code(s): 878070950 Comment: About at her baseline. (5) Crohn's disease Current Visit: No Status: Chronic Code(s): K50.90 - CROHN'S DISEASE, UNSPECIFIED, WITHOUT COMPLICATIONS SNOMED Code(s): 12290278 Comment: S/P ileostomy. Pt concerned about high oupt, feels she is dehydrated. Output from ileostomy 01/23-01/24 recorded as 1050 ml. IV at 60 ml/hr ordered, would be more than her ileostomy output. She should be able to drink enough to stay hydrated. (6) Tobacco abuse Current Visit: No Status: Acute Code(s): Z72.0 - TOBACCO USE SNOMED Code(s ): 480729434 Comment: Pt advised to quit smoking.
[2017-01-24] MEDS: D5W 1/2 NS KCl 20 Meq 1000 ML* 1,000 ML IV SCH (13:47)
[2017-01-24] MEDS ORDERED: Warfarin TAB(*) 2 MG PO ONE (17:00)
[2017-01-24] MEDS: Fluticasone NASAL SPRAY 50MCG* 16 gm SPRAY BTL BOTH NARES SCH (21:06)
[2017-01-25] MEDS: Opium Tincture* 6 MG/0.6 ML ORAL.LIQ SYRINGE PO SCH ×6 (01:14→21:23)
[2017-01-25] MEDS: LORazepam TAB(*) 0.5 MG PO PRN ×5 (01:16→21:22)
[2017-01-25] MEDS: Acetaminophen TAB* 325 MG PO PRN ×3 (01:18→15:53)
[2017-01-25] MEDS: Ipratropium 0.5MG/2.5ML NEB* 0.5 MG/2.5 ML NEB.SOLN INH SCH ×4 (01:48→20:46)
[2017-01-25] MEDS: guaiFENesin ER TAB 600 MG PO PRN (01:51)
[2017-01-25] MEDS: cefTRIAXone VIAL(*) 1,000 MG in D5W 50 ML BAG* 50 ML IVPB SCH (03:56)
[2017-01-25] MEDS: Morphine INJ* 2 MG/ML 1 ML SYRINGE (TWO MG - NEW SYRINGE VERSION) IV PRN ×3 (04:07→21:22)
[2017-01-25] MEDS: Azithromycin IV(*) 250 MG in D5W 250 ML BAG* 250 ML IVPB SCH (05:44)
[2017-01-25] MEDS: Tiotropium CAP.INH* CAP.INH/18 MCG (USE ORDER SET !) INH SCH (07:46)
[2017-01-25] MEDS ORDERED: predniSONE TAB* 20 MG PO SCH ×2 (09:00→13:20)
[2017-01-25 09:38] LABS: BUN/Creatinine Ratio 18.1 (8-20); EGFR African American 44.1 (>60); EGFR Non-African American 34.3 (>60); Potassium 3.6 mmol/L (3.5-5.0)
[2017-01-25] MEDS: Fluticasone NASAL SPRAY 50MCG* 16 gm SPRAY BTL BOTH NARES SCH (09:45)
[2017-01-25] MEDS: Cinacalcet TAB* 30 MG PO SCH (09:45)
[2017-01-25] MEDS: PARoxetine HCL TAB* 10 MG PO SCH (09:45)
[2017-01-25] MEDS: Calcitriol CAP* 0.25 MCG PO SCH (09:45)
[2017-01-25] MEDS: Aspirin EC Low Dose* 81 MG TAB.EC PO SCH (09:45)
--- NOTE | 2017-01-25 13:18 | PN ---
Subjective Date of Service: 01/25/17 Interval History: Sometimes feels like her throat is "closing up". Gets SOB walking a few steps in her room. Objective Active Medications: Acetaminophen (Tylenol Tab*) 650 mg PO Q4H PRN PRN Reason: FEVER/PAIN Last Admin: 01/25/17 06:15 Dose: 650 mg Al Hydrox/Mg Hydrox/Simethicone (Maalox Plus*) 30 ml PO Q6H PRN PRN Reason: INDIGESTION Albuterol (Ventolin 2.5 Mg/3 Ml Neb.Vesna*) 2.5 mg INH Q2H PRN PRN Reason: SOB/WHEEZING Last Admin: 01/23/17 13:09 Dose: 2.5 mg Aspirin (Aspirin Ec Low Dose*) 81 mg PO DAILY [facility] Last Admin: 01/25/17 09:45 Dose: 81 mg Calcitriol (Rocaltrol Cap*) 0.25 mcg PO DAILY [facility] Last Admin: 01/25/17 09:45 Dose: 0.25 mcg Cinacalcet (Sensipar Tab*) 30 mg PO DAILY [facility] Last Admin: 01/25/17 09:45 Dose: 30 mg Device (Tiotropium Inhaler Device*) 1 each .SEE ORDER .USE w/ SPIRIVA CAPS [facility] Fluticasone Propionate (Flonase Nasal [place] 50mcg*) 2 spray BOTH NARES DAILY [facility] Last Admin: 01/25/17 09:45 Dose: 2 spray Guaifenesin (Mucinex*) 600 mg PO BID PRN PRN Reason: COUGH Last Admin: 01/25/17 01:51 Dose: 600 mg Azithromycin 250 mg/ Dextrose 250 mls @ 250 mls/hr IVPB Q24H [facility] Last Admin: 01/25/17 05:44 Dose: 250 mls/hr Ceftriaxone Sodium 1,000 mg/ (Dextrose) 50 mls @ 200 mls/hr IVPB Q24H [facility] Last Admin: 01/25/17 03:56 Dose: 200 mls/hr Potassium Chloride/Dextrose (D5w 1/2 Ns Kcl 20 Meq 1000 Ml*) 1,000 mls @ 60 mls /hr IV PER RATE [facility] Last Admin: 01/24/17 13:47 Dose: 60 mls/hr Ipratropium [place] (Atrovent 0.5 Mg Neb.Vesna*) 0.5 mg INH [id number] AWAKE [facility] Last Admin: 01/25/17 12:43 Dose: 0.5 mg Lorazepam (Ativan Tab(*)) 0.5 mg PO Q4H PRN PRN Reason: ANXIETY Last Admin: 01/25/17 11:13 Dose: 0.5 mg Morphine Sulfate (Morphine Inj (Syringe)*) 1 mg IV Q4H PRN PRN Reason: PAIN Last Admin: 01/25/17 11:13 Dose: 1 mg Ondansetron HCl (Zofran Inj*) 4 mg IV Q4H PRN PRN Reason: NAUSEA/VOMITING Opium Tincture (Opium Tincture*) 0.6 mg PO Q4HR [facility] Last Admin: 01/25/17 09:44 Dose: 0.6 mg Paroxetine HCl (Paxil Tab*) 30 mg PO DAILY [facility] Last Admin: 01/25/17 09:45 Dose: 30 mg Pharmacy Profile Note (Coumadin Per Pharmacy*) 1 note FOLLOW UP .PER PHARMACY PROTOC [facility] PRN Reason: Protocol Prednisone (Deltasone Tab*) 30 mg PO DAILY [facility] Last Admin: 01/25/17 09:45 Dose: 30 mg Tiotropium [place] (Spiriva Cap.Inh*) 1 cap INH DAILY [facility] Last Admin: 01/25/17 07:46 Dose: 1 cap Vital Signs 01/24/17 01/24/17 01/24/17 13:47 13:48 15:31 Temperature 98.2 F Pulse Rate 84 Respiratory 16 16 16 Rate Blood Pressure 133/61 (mmHg) O2 Sat by Pulse 98 Oximetry 01/24/17 01/24/17 01/24/17 17:05 17:06 17:30 Temperature Pulse Rate Respiratory 16 16 20 Rate Blood Pressure (mmHg) O2 Sat by Pulse Oximetry 01/24/17 01/24/17 01/24/17 19:56 20:00 20:01 Temperature 98.4 F Pulse Rate 83 Respiratory 19 18 19 Rate Blood Pressure 133/52 (mmHg) O2 Sat by Pulse 97 Oximetry 01/24/17 01/24/17 01/24/17 20:02 20:24 21:00 Temperature Pulse Rate 76 Respiratory 19 18 198 Rate Blood Pressure (mmHg) O2 Sat by Pulse 98 Oximetry 01/24/17 01/24/17 01/25/17 21:08 23:07 00:05 Temperature Pulse Rate Respiratory 19 20 19 Rate Blood Pressure (mmHg) O2 Sat by Pulse Oximetry 01/25/17 01/25/17 01/25/17 00:19 01:14 01:16 Temperature 98.1 F Pulse Rate 92 Respiratory 16 17 17 Rate Blood Pressure 153/70 (mmHg) O2 Sat by Pulse 97 Oximetry 01/25/17 01/25/17 01/25/17 01:17 01:50 03:42 Temperature Pulse Rate 76 Respiratory 18 18 18 Rate Blood Pressure (mmHg) O2 Sat by Pulse 99 Oximetry 01/25/17 01/25/17 01/25/17 03:43 04:05 04:07 Temperature 98.2 F Pulse Rate 66 Respiratory 18 16 19 Rate Blood Pressure 143/65 (mmHg) O2 Sat by Pulse Oximetry 01/25/17 01/25/17 01/25/17 04:16 05:20 05:21 Temperature 98.1 F Pulse Rate 66 Respiratory 16 18 18 Rate Blood Pressure 144/62 (mmHg) O2 Sat by Pulse 99 Oximetry 01/25/17 01/25/17 01/25/17 05:44 06:16 07:24 Temperature 97.8 F Pulse Rate 59 Respiratory 17 19 16 Rate Blood Pressure 137/56 (mmHg) O2 Sat by Pulse 100 Oximetry 01/25/17 01/25/17 01/25/17 07:48 09:44 09:55 Temperature Pulse Rate 55 Respiratory 16 16 18 Rate Blood Pressure (mmHg) O2 Sat by Pulse 98 Oximetry 01/25/17 01/25/17 01/25/17 09:56 11:13 12:45 Temperature Pulse Rate 76 Respiratory 18 18 16 Rate Blood Pressure (mmHg) O2 Sat by Pulse 98 Oximetry Oxygen Devices in Use Now: Nasal Cannula Appearance: Alert, on her L side in bed. Infrequent moist cough. Resp quiet otherwise. Looks fatigued/depressed. Eyes: No Scleral Icterus Ears/Nose/Mouth/Throat: Clear Oropharnyx, Mucous Membranes Moist Neck: NL Appearance and Movements; NL JVP, No Thyroid Enlargement, Masses Respiratory: Symmetrical Chest Expansion and Respiratory Effort, Clear to Auscultation, Clear to Percussion Extremities: No Edema, No Clubbing, Cyanosis, - Skin: No Rash or Ulcers, No Nodules or Sclerosis, - Neurological: Alert and Oriented x 3, NL Sensation Result Diagrams: 01/24/17 06:58 01/25/17 09:04 Additional Lab and Data: Lab Results 01/23/17 01/23/17 01/23/17 Range/Units 01:30 01:30 01:30 WBC 13.2 H (3.5-10.8) 10^3/ul RBC 4.28 (4.0-5.4) 10^6/ul Hgb 13.4 (12.0-16.0) g/dl Hct 41 (35-47) % MCV 95 (80-97) fL MCH 31 (27-31) pg MCHC 33 (31-36) g/dl RDW 14 (10.5-15) % Plt Count 261 (150-450) 10^3/ul MPV 8 (7.4-10.4) um3 Neut % (Auto) 65.8 (38-83) % Lymph % (Auto) 25.5 (25-47) % [place] % (Auto) 7.0 (1-9) % Eos % (Auto) 0.6 (0-6) % Baso % (Auto) 1.1 (0-2) % Absolute Neuts (auto) 8.7 H (1.5-7.7) 10^3/ul Absolute Lymphs (auto) 3.4 (1.0-4.8) 10^3/ul Absolute Monos (auto) 0.9 H (0-0.8) 10^3/ul Absolute Eos (auto) 0.1 (0-0.6) 10^3/ul Absolute Basos (auto) 0.1 (0-0.2) 10^3/ul Absolute Nucleated RBC 0.01 10^3/ul Nucleated RBC % 0.1 Sodium 136 (133-145) mmol/L Potassium TNP Chloride 98 L (101-111) mmol/L Carbon Dioxide 25 (22-32) mmol/L Anion Gap 13 H (2-11) mmol/L BUN 38 H (6-24) mg/dL Creatinine 1.77 H (0.51-0.95) mg/dL Est GFR ( Amer) 36.2 (>60) Est GFR (Non-Af Amer) 28.1 (>60) BUN/Creatinine Ratio 21.5 H (8-20) Glucose 170 H (70-100) mg/dL Lactic Acid 3.9 H* (0.5-2.0) mmol/L Calcium 9.1 (8.6-10.3) mg/dL Total Bilirubin 0.30 (0.2-1.0) mg/dL AST TNP ALT 38 (7-52) U/L Alkaline Phosphatase 70 (34-104) U/L Troponin I 0.03 (<0.04) ng/mL Total Protein 6.6 (6.4-8.9) g/dL Albumin 3.7 (3.2-5.2) g/dL Globulin 2.9 (2-4) g/dL Albumin/Globulin Ratio 1.3 (1-3) 01/23/17 Range/Units 03:23 WBC (3.5-10.8) 10^3/ul RBC (4.0-5.4) 10^6/ul Hgb (12.0-16.0) g/dl Hct (35-47) % MCV (80-97) fL MCH (27-31) pg MCHC (31-36) g/dl RDW (10.5-15) % Plt Count (150-450) 10^3/ul MPV (7.4-10.4) um3 Neut % (Auto) (38-83) % Lymph % (Auto) (25-47) % [place] % (Auto) (1-9) % Eos % (Auto) (0-6) % Baso % (Auto) (0-2) % Absolute Neuts (auto) (1.5-7.7) 10^3/ul Absolute Lymphs (auto) (1.0-4.8) 10^3/ul Absolute Monos (auto) (0-0.8) 10^3/ul Absolute Eos (auto) (0-0.6) 10^3/ul Absolute Basos (auto) (0-0.2) 10^3/ul Absolute Nucleated RBC 10^3/ul Nucleated RBC % Sodium (133-145) mmol/L Potassium 4.0 Chloride (101-111) mmol/L Carbon Dioxide (22-32) mmol/L Anion Gap (2-11) mmol/L BUN (6-24) mg/dL Creatinine (0.51-0.95) mg/dL Est GFR ( Amer) (>60) Est GFR (Non-Af Amer) (>60) BUN/Creatinine Ratio (8-20) Glucose (70-100) mg/dL Lactic Acid (0.5-2.0) mmol/L Calcium (8.6-10.3) mg/dL Total Bilirubin (0.2-1.0) mg/dL AST 30 ALT (7-52) U/L Alkaline Phosphatase (34-104) U/L Troponin I (<0.04) ng/mL Total Protein (6.4-8.9) g/dL Albumin (3.2-5.2) g/dL Globulin (2-4) g/dL Albumin/Globulin Ratio (1-3) Assess/Plan/Problems-Billing Assessment: - Patient Problems (1) COPD exacerbation Current Visit: No Status: Acute Priority: High Code(s): J44.1 - CHRONIC OBSTRUCTIVE PULMONARY DISEASE W (ACUTE) EXACERBATION SNOMED Code(s): 793233236271216 Comment: Nurse felt patient was worse and an additional 60 mg IV methyprednisolone given 01/23. ABG's OK 01/23/17. Continue azith/ceftri. Pt states she last smoked 01/17/17. Continue prednisone taper. (2) Lung cancer Current Visit: No Status: Acute Code(s): C34.90 - MALIGNANT NEOPLASM OF UNSP PART OF UNSP BRONCHUS OR LUNG SNOMED Code(s): 094625244 Comment: Patient missed the start of her RT tx, was supposed to go MWF. Consider starting 01/27, discharge home after that. Discussed with Dr. Wang . (3) History of pulmonary embolism Current Visit: No Status: Chronic Priority: Medium Code(s): Z86.711 - PERSONAL HISTORY OF PULMONARY EMBOLISM SNOMED Code(s): 611846668 Comment: Continue warfarin at home dose. INR 01/24/17 was 1.96, repeat 01/26. (4) CKD (chronic kidney disease), stage IV Current Visit: No Status: Chronic Code(s): N18.4 - CHRONIC KIDNEY DISEASE, STAGE 4 (SEVERE) SNOMED Code(s): 959372387 Comment: About at her baseline. (5) Crohn's disease Current Visit: No Status: Chronic Code(s): K50.90 - CROHN'S DISEASE, UNSPECIFIED, WITHOUT COMPLICATIONS SNOMED Code(s): 24060807 Comment: S/P ileostomy. Pt concerned about high oupt, feels she is dehydrated. Output from ileostomy 01/23-01/24 recorded as 1050 ml. IV at 60 ml/hr ordered, would be more than her ileostomy output. She should be able to drink enough to stay hydrated. (6) Tobacco abuse Current Visit: No Status: Acute Code(s): Z72.0 - TOBACCO USE SNOMED Code(s ): 268985219 Comment: Pt advised to quit smoking.
[2017-01-25] MEDS: D5W 1/2 NS KCl 20 Meq 1000 ML* 1,000 ML IV SCH (14:25)
[2017-01-25] MEDS ORDERED: Warfarin TAB(*) 2 MG PO ONE (17:00)
[2017-01-25] MEDS: Benzocaine/Menthol LOZ* 1 LOZENGE PO PRN (21:03)
[2017-01-25] MEDS: Artificial Tears* 15 ML BTL BOTH EYES PRN (21:03)
[2017-01-25] MEDS: Saline NASAL SPRAY 0.65%* BTL BOTH NARES PRN (21:23)
[2017-01-26] MEDS: Ipratropium 0.5MG/2.5ML NEB* 0.5 MG/2.5 ML NEB.SOLN INH SCH ×4 (01:19→19:02)
[2017-01-26] MEDS: Saline NASAL SPRAY 0.65%* BTL BOTH NARES PRN ×2 (01:24→22:53)
[2017-01-26] MEDS: Morphine INJ* 2 MG/ML 1 ML SYRINGE (TWO MG - NEW SYRINGE VERSION) IV PRN ×3 (01:25→09:51)
[2017-01-26] MEDS: LORazepam TAB(*) 0.5 MG PO PRN ×5 (01:26→20:00)
[2017-01-26] MEDS: Opium Tincture* 6 MG/0.6 ML ORAL.LIQ SYRINGE PO SCH ×6 (01:26→22:48)
[2017-01-26] MEDS: Acetaminophen TAB* 325 MG PO PRN ×2 (03:43→20:09)
[2017-01-26] MEDS: Benzocaine/Menthol LOZ* 1 LOZENGE PO PRN ×2 (03:43→09:56)
[2017-01-26] MEDS: cefTRIAXone VIAL(*) 1,000 MG in D5W 50 ML BAG* 50 ML IVPB SCH (05:46)
[2017-01-26] MEDS: Azithromycin IV(*) 250 MG in D5W 250 ML BAG* 250 ML IVPB SCH (06:29)
[2017-01-26] MEDS: Tiotropium CAP.INH* CAP.INH/18 MCG (USE ORDER SET !) INH SCH (07:57)
[2017-01-26] MEDS ORDERED: predniSONE TAB* 20 MG PO SCH (09:41)
[2017-01-26] MEDS ORDERED: predniSONE TAB* 20 MG PO ONE (09:47)
--- NOTE | 2017-01-26 09:47 | PN ---
Subjective Date of Service: 01/26/17 Interval History: Feels better. Ileostomy output acceptable to her. Appetite OK. Objective Active Medications: Acetaminophen (Tylenol Tab*) 650 mg PO Q4H PRN PRN Reason: FEVER/PAIN Last Admin: 01/26/17 03:43 Dose: 650 mg Al Hydrox/Mg Hydrox/Simethicone (Maalox Plus*) 30 ml PO Q6H PRN PRN Reason: INDIGESTION Albuterol (Ventolin 2.5 Mg/3 Ml Neb.Vesna*) 2.5 mg INH Q2H PRN PRN Reason: SOB/WHEEZING Last Admin: 01/23/17 13:09 Dose: 2.5 mg Aspirin (Aspirin Ec Low Dose*) 81 mg PO DAILY [facility] Last Admin: 01/25/17 09:45 Dose: 81 mg Calcitriol (Rocaltrol Cap*) 0.25 mcg PO DAILY [facility] Last Admin: 01/25/17 09:45 Dose: 0.25 mcg Cinacalcet (Sensipar Tab*) 30 mg PO DAILY [facility] Last Admin: 01/25/17 09:45 Dose: 30 mg Device (Tiotropium Inhaler Device*) 1 each .SEE ORDER .USE w/ SPIRIVA CAPS [facility] Fluticasone Propionate (Flonase Nasal [place] 50mcg*) 2 spray BOTH NARES DAILY [facility] Last Admin: 01/25/17 09:45 Dose: 2 spray Guaifenesin (Mucinex*) 600 mg PO BID PRN PRN Reason: COUGH Last Admin: 01/25/17 01:51 Dose: 600 mg Azithromycin 250 mg/ Dextrose 250 mls @ 250 mls/hr IVPB Q24H [facility] Last Admin: 01/26/17 06:29 Dose: 250 mls/hr Ceftriaxone Sodium 1,000 mg/ (Dextrose) 50 mls @ 200 mls/hr IVPB Q24H [facility] Last Admin: 01/26/17 05:46 Dose: 200 mls/hr Ipratropium [place] (Atrovent 0.5 Mg Neb.Vesna*) 0.5 mg INH [id number] AWAKE [facility] Last Admin: 01/26/17 07:56 Dose: 0.5 mg Lorazepam (Ativan Tab(*)) 0.5 mg PO Q4H PRN PRN Reason: ANXIETY Last Admin: 01/26/17 05:46 Dose: 0.5 mg Morphine Sulfate (Morphine Inj (Syringe)*) 1 mg IV Q4H PRN PRN Reason: PAIN Last Admin: 01/26/17 05:45 Dose: 1 mg Ondansetron HCl (Zofran Inj*) 4 mg IV Q4H PRN PRN Reason: NAUSEA/VOMITING Opium Tincture (Opium Tincture*) 6 mg PO Q4HR [facility] Last Admin: 01/26/17 05:46 Dose: 6 mg Paroxetine HCl (Paxil Tab*) 30 mg PO DAILY [facility] Last Admin: 01/25/17 09:45 Dose: 30 mg Pharmacy Profile Note (Coumadin Per Pharmacy*) 1 note FOLLOW UP .PER PHARMACY PROTOC [facility] PRN Reason: Protocol Polyvinyl Alcohol (Polyvinyl Alcohol 1.4% Opth*) 1 drop BOTH EYES Q2H PRN PRN Reason: DRY EYE Last Admin: 01/25/17 21:03 Dose: 1 drop Sodium Chloride (Sodium Chloride 0.65% Nasal [place]*) 1 spray BOTH NARES Q4H PRN PRN Reason: Nasal congestion Last Admin: 01/26/17 01:24 Dose: 1 spray Throat Lozenges (Chloraseptic Marine*) 1 marine PO Q6H PRN PRN Reason: SORE THROAT Last Admin: 01/26/17 03:43 Dose: 1 marine Tiotropium [place] (Spiriva Cap.Inh*) 1 cap INH DAILY [facility] Last Admin: 01/26/17 07:57 Dose: 1 cap Vital Signs 01/25/17 01/25/17 01/25/17 09:44 09:55 09:56 Temperature Pulse Rate Respiratory 16 18 18 Rate Blood Pressure (mmHg) O2 Sat by Pulse Oximetry 01/25/17 01/25/17 01/25/17 11:13 12:45 13:48 Temperature Pulse Rate 76 Respiratory 18 16 16 Rate Blood Pressure (mmHg) O2 Sat by Pulse 98 Oximetry 01/25/17 01/25/17 01/25/17 13:49 13:56 14:24 Temperature 97.7 F Pulse Rate 79 Respiratory 16 20 16 Rate Blood Pressure 143/71 (mmHg) O2 Sat by Pulse 97 Oximetry 01/25/17 01/25/17 01/25/17 15:29 15:53 17:16 Temperature 98.1 F Pulse Rate 69 Respiratory 20 16 20 Rate Blood Pressure 134/60 (mmHg) O2 Sat by Pulse 98 Oximetry 01/25/17 01/25/17 01/25/17 17:21 18:05 19:39 Temperature 98.6 F Pulse Rate 83 Respiratory 20 16 20 Rate Blood Pressure 125/62 (mmHg) O2 Sat by Pulse 97 Oximetry 01/25/17 01/25/17 01/25/17 19:58 20:00 20:48 Temperature Pulse Rate 74 Respiratory 18 16 18 Rate Blood Pressure (mmHg) O2 Sat by Pulse 98 Oximetry 01/25/17 01/25/17 01/25/17 21:22 21:23 23:30 Temperature Pulse Rate Respiratory 20 20 18 Rate Blood Pressure (mmHg) O2 Sat by Pulse Oximetry 01/26/17 01/26/17 01/26/17 01:20 01:25 01:26 Temperature Pulse Rate 74 Respiratory 18 20 20 Rate Blood Pressure (mmHg) O2 Sat by Pulse 98 Oximetry 01/26/17 01/26/17 01/26/17 02:34 03:35 03:40 Temperature 98.5 F Pulse Rate 81 Respiratory 18 16 18 Rate Blood Pressure 147/78 (mmHg) O2 Sat by Pulse 97 Oximetry 01/26/17 01/26/17 01/26/17 05:45 05:46 07:24 Temperature Pulse Rate Respiratory 16 18 18 Rate Blood Pressure (mmHg) O2 Sat by Pulse Oximetry 01/26/17 07:59 Temperature Pulse Rate 78 Respiratory 17 Rate Blood Pressure (mmHg) O2 Sat by Pulse 97 Oximetry Oxygen Devices in Use Now: Nasal Cannula Appearance: Alert, sitting up in bed. In good spirits. Looks comfortable. Neck: NL Appearance and Movements; NL JVP, No Thyroid Enlargement, Masses Respiratory: Symmetrical Chest Expansion and Respiratory Effort, Clear to Auscultation, Clear to Percussion Cardiovascular: NL Sounds; No Murmurs; No JVD, RRR, No Edema, - Extremities: No Edema, No Clubbing, Cyanosis, - Skin: No Rash or Ulcers, No Nodules or Sclerosis, - Neurological: Alert and Oriented x 3, NL Sensation Result Diagrams: 01/24/17 06:58 01/25/17 09:04 Additional Lab and Data: Lab Results 01/23/17 01/23/17 01/23/17 Range/Units 01:30 01:30 01:30 WBC 13.2 H (3.5-10.8) 10^3/ul RBC 4.28 (4.0-5.4) 10^6/ul Hgb 13.4 (12.0-16.0) g/dl Hct 41 (35-47) % MCV 95 (80-97) fL MCH 31 (27-31) pg MCHC 33 (31-36) g/dl RDW 14 (10.5-15) % Plt Count 261 (150-450) 10^3/ul MPV 8 (7.4-10.4) um3 Neut % (Auto) 65.8 (38-83) % Lymph % (Auto) 25.5 (25-47) % [place] % (Auto) 7.0 (1-9) % Eos % (Auto) 0.6 (0-6) % Baso % (Auto) 1.1 (0-2) % Absolute Neuts (auto) 8.7 H (1.5-7.7) 10^3/ul Absolute Lymphs (auto) 3.4 (1.0-4.8) 10^3/ul Absolute Monos (auto) 0.9 H (0-0.8) 10^3/ul Absolute Eos (auto) 0.1 (0-0.6) 10^3/ul Absolute Basos (auto) 0.1 (0-0.2) 10^3/ul Absolute Nucleated RBC 0.01 10^3/ul Nucleated RBC % 0.1 Sodium 136 (133-145) mmol/L Potassium TNP Chloride 98 L (101-111) mmol/L Carbon Dioxide 25 (22-32) mmol/L Anion Gap 13 H (2-11) mmol/L BUN 38 H (6-24) mg/dL Creatinine 1.77 H (0.51-0.95) mg/dL Est GFR ( Amer) 36.2 (>60) Est GFR (Non-Af Amer) 28.1 (>60) BUN/Creatinine Ratio 21.5 H (8-20) Glucose 170 H (70-100) mg/dL Lactic Acid 3.9 H* (0.5-2.0) mmol/L Calcium 9.1 (8.6-10.3) mg/dL Total Bilirubin 0.30 (0.2-1.0) mg/dL AST TNP ALT 38 (7-52) U/L Alkaline Phosphatase 70 (34-104) U/L Troponin I 0.03 (<0.04) ng/mL Total Protein 6.6 (6.4-8.9) g/dL Albumin 3.7 (3.2-5.2) g/dL Globulin 2.9 (2-4) g/dL Albumin/Globulin Ratio 1.3 (1-3) 01/23/ Range/Units 03:23 WBC (3.5-10.8) 10^3/ul RBC (4.0-5.4) 10^6/ul Hgb (12.0-16.0) g/dl Hct (35-47) % MCV (80-97) fL MCH (27-31) pg MCHC (31-36) g/dl RDW (10.5-15) % Plt Count (150-450) 10^3/ul MPV (7.4-10.4) um3 Neut % (Auto) (38-83) % Lymph % (Auto) (25-47) % [place] % (Auto) (1-9) % Eos % (Auto) (0-6) % Baso % (Auto) (0-2) % Absolute Neuts (auto) (1.5-7.7) 10^3/ul Absolute Lymphs (auto) (1.0-4.8) 10^3/ul Absolute Monos (auto) (0-0.8) 10^3/ul Absolute Eos (auto) (0-0.6) 10^3/ul Absolute Basos (auto) (0-0.2) 10^3/ul Absolute Nucleated RBC 10^3/ul Nucleated RBC % Sodium (133-145) mmol/L Potassium 4.0 Chloride (101-111) mmol/L Carbon Dioxide (22-32) mmol/L Anion Gap (2-11) mmol/L BUN (6-24) mg/dL Creatinine (0.51-0.95) mg/dL Est GFR ( Amer) (>60) Est GFR (Non-Af Amer) (>60) BUN/Creatinine Ratio (8-20) Glucose (70-100) mg/dL Lactic Acid (0.5-2.0) mmol/L Calcium (8.6-10.3) mg/dL Total Bilirubin (0.2-1.0) mg/dL AST 30 ALT (7-52) U/L Alkaline Phosphatase (34-104) U/L Troponin I (<0.04) ng/mL Total Protein (6.4-8.9) g/dL Albumin (3.2-5.2) g/dL Globulin (2-4) g/dL Albumin/Globulin Ratio (1-3) Assess/Plan/Problems-Billing Assessment: - Patient Problems (1) COPD exacerbation Current Visit: No Status: Acute Priority: High Code(s): J44.1 - CHRONIC OBSTRUCTIVE PULMONARY DISEASE W (ACUTE) EXACERBATION SNOMED Code(s): 419405717564502 Comment: Nurse felt patient was worse and an additional 60 mg IV methyprednisolone given 01/23. ABG's OK 01/23/17. Continue azith/ceftri. Pt states she last smoked 01/17/17. Prednisone 10 mg daily start 01/27. Pt states she had trouble with 7 mg prednisone, needs very slow taper. (2) Lung cancer Current Visit: No Status: Acute Code(s): C34.90 - MALIGNANT NEOPLASM OF UNSP PART OF UNSP BRONCHUS OR LUNG SNOMED Code(s): 069729283 Comment: Patient missed the start of her RT tx, was supposed to have 3 treatments. Start 01/27, discharge home after that. Appt for 01/[address] Wang 01/26/17. (3) History of pulmonary embolism Current Visit: No Status: Chronic Priority: Medium Code(s): Z86.711 - PERSONAL HISTORY OF PULMONARY EMBOLISM SNOMED Code(s): 183446479 Comment: Continue warfarin at home dose. INR 01/24/17 was 1.96, repeat 01/26. (4) CKD (chronic kidney disease), stage IV Current Visit: No Status: Chronic Code(s): N18.4 - CHRONIC KIDNEY DISEASE, STAGE 4 (SEVERE) SNOMED Code(s): 066024069 Comment: About at her baseline. (5) Crohn's disease Current Visit: No Status: Chronic Code(s): K50.90 - CROHN'S DISEASE, UNSPECIFIED, WITHOUT COMPLICATIONS SNOMED Code(s): 28429889 Comment: S/P ileostomy. Pt concerned about high oupt, feels she is dehydrated. Output from ileostomy 01/23-01/24 recorded as 1050 ml. IV at 60 ml/hr ordered, would be more than her ileostomy output. She should be able to drink enough to stay hydrated. (6) Tobacco abuse Current Visit: No Status: Acute Code(s): Z72.0 - TOBACCO USE SNOMED Code(s ): 034074960 Comment: Pt advised to quit smoking.
[2017-01-26] MEDS: Cinacalcet TAB* 30 MG PO SCH (09:53)
[2017-01-26] MEDS: Calcitriol CAP* 0.25 MCG PO SCH (09:53)
[2017-01-26] MEDS: PARoxetine HCL TAB* 10 MG PO SCH (09:54)
[2017-01-26] MEDS: Aspirin EC Low Dose* 81 MG TAB.EC PO SCH (09:55)
[2017-01-26] MEDS: Fluticasone NASAL SPRAY 50MCG* 16 gm SPRAY BTL BOTH NARES SCH (09:56)
[2017-01-26] MEDS: Warfarin TAB(*) 1 MG PO SCH (18:43)
[2017-01-26] MEDS: Artificial Tears* 15 ML BTL BOTH EYES PRN (22:51)
[2017-01-27] MEDS: Acetaminophen TAB* 325 MG PO PRN (00:30)
[2017-01-27] MEDS: LORazepam TAB(*) 0.5 MG PO PRN ×4 (00:31→13:49)
[2017-01-27] MEDS: Ipratropium 0.5MG/2.5ML NEB* 0.5 MG/2.5 ML NEB.SOLN INH SCH ×3 (01:59→14:09)
[2017-01-27] MEDS: Opium Tincture* 6 MG/0.6 ML ORAL.LIQ SYRINGE PO SCH ×4 (02:16→13:49)
[2017-01-27] MEDS: cefTRIAXone VIAL(*) 1,000 MG in D5W 50 ML BAG* 50 ML IVPB SCH (04:38)
[2017-01-27] MEDS: Tiotropium CAP.INH* CAP.INH/18 MCG (USE ORDER SET !) INH SCH (07:54)
[2017-01-27] MEDS: Aspirin EC Low Dose* 81 MG TAB.EC PO SCH (08:22)
[2017-01-27] MEDS: Calcitriol CAP* 0.25 MCG PO SCH (08:23)
[2017-01-27] MEDS: PARoxetine HCL TAB* 10 MG PO SCH (08:23)
[2017-01-27] MEDS: Fluticasone NASAL SPRAY 50MCG* 16 gm SPRAY BTL BOTH NARES SCH (08:23)
[2017-01-27] MEDS: Cinacalcet TAB* 30 MG PO SCH (08:23)
[2017-01-27] MEDS ORDERED: Azithromycin TAB* 250 MG PO SCH (09:00)
[2017-01-27] MEDS ORDERED: predniSONE TAB* 10 MG PO SCH (09:00)
[2017-01-27 15:58] VITALS: BP 137/59
[2017-01-27] MEDS: Warfarin TAB(*) 1 MG PO SCH (16:45)
--- NOTE | 2017-01-28 08:40 | DS ---
CC: Dr. Suzette France. * DISCHARGE SUMMARY: DATE OF ADMISSION: 01/23/17 DATE OF DISCHARGE: 01/27/17 PRIMARY CARE PHYSICIAN: Dr. Suzette France. ADMISSION DIAGNOSES: 1. Chronic obstructive pulmonary disease exacerbation. 2. History of DVT and pulmonary embolism. 3. Lung cancer. 4. Anxiety. 5. Depression. DISCHARGE DIAGNOSES: 1. Chronic obstructive pulmonary disease exacerbation. 2. History of DVT and pulmonary embolism. 3. Lung cancer. 4. Anxiety. 5. Depression. HOSPITAL COURSE: The patient is a 71-year-old woman who presented to [facility] with a chief compliant of shortness of breath. The patient was admitted and placed on prednisone, placed on her inhalers. She continued CPAP at night. The patient overnight on her first night felt she was somewhat worsened, received the IV methylprednisolone. Patient then slowly improved throughout her hospital stay. On the date of discharge, she was feeling well enough to go home. The patient will be discharged on a tapering dose of prednisone, inhalers and with close followup with her PCP. PHYSICAL EXAMINATION: On the date of discharge: Elderly woman lying in bed in no acute distress. Vital Signs: Temperature 98.3 degrees, heart rate 82 beats per minute, respiratory rate 16 breaths per minute, and pulse ox 98% on supplemental oxygen. Neck is supple. No JVD, bruits, palpable thyroid, or lymphadenopathy. Chest: She has got some diminished breath sounds, but no wheezing. Cardiovascular Exam: S1 and S2 appreciated. Abdominal Exam: Obese , positive bowel sounds in all 4 quadrants. Soft, nontender, and nondistended. No hepatosplenomegaly. Extremities: No cyanosis, clubbing, or edema; +2 peripheral pulses bilaterally. Neuro: Alert and oriented x3, moves all extremities. Skin: No rashes. Chest x-ray done on 01/23/17 shows COPD, mass in the right upper lobe and right lower lobe. No changes to previous exam on 01/17/17. DISCHARGE MEDICATIONS: 1. Guaifenesin 60 mg twice a day as needed. 2. Warfarin 2 mg in the evening. 3. Spiriva 1 puff inhaled daily. 4. Piroxicam 30 mg at bedtime. 5. Opium tincture 0.6 mL every 4 hours as needed. 6. Lorazepam 0.5 mg twice a day as needed. 7. Ipratropium nebulizer 0.5 mg every 6 hours as needed. 8. Vitamin B12 1000 mcg IM weekly. 9. Sensipar 30 mg in the morning. 10. Calcitriol 0.25 mg in the morning. 11. Aspirin 81 mg daily. 12. Prednisone taper 20 mg daily for 3 days, then 10 mg daily for 2 days, and 5 mg thereafter. DISCHARGE PLAN: The patient will be discharged home. The patient will follow up with her PCP and oncologist as an outpatient. Hopefully, she can resume her treatment. TIME SPENT: Over 35 minutes was spent on this discharge, more than 20 minutes of which was spent in direct [id number] contact with the patient evaluation, physical exam, counseling, and coordination of care. [id number]/[facility] #: [id number] ANI
== END 2017-01-27 18:13 | disposition home or self-care (01) | DRG 191 ==
LOC: ED 23:45 → MEDTELE 01-23 03:48
PROVIDERS: ADMIT Pediatrics; ATTEND Internal Medicine
PROC: DB021ZZ Beam Radiation of Lung using Photons 1 - 10 MeV (ICD-10-PCS; principal; 2017-01-27)
DX: J44.1 Chronic obstructive pulmonary disease with (acute) exacerbation (principal); C34.11 Malignant neoplasm of upper lobe, right bronchus or lung; K50.90 Crohn's disease, unspecified, without complications; Z99.81 Dependence on supplemental oxygen; C34.31 Malignant neoplasm of lower lobe, right bronchus or lung; F41.9 Anxiety disorder, unspecified; F17.210 Nicotine dependence, cigarettes, uncomplicated; F32.9 Major depressive disorder, single episode, unspecified; G25.81 Restless legs syndrome; N18.3 Chronic kidney disease, stage 3 (moderate); Z66 Do not resuscitate; Z86.711 Personal history of pulmonary embolism; Z86.718 Personal history of other venous thrombosis and embolism; Z79.01 Long term (current) use of anticoagulants; Z79.82 Long term (current) use of aspirin; Z79.52 Long term (current) use of systemic steroids; Z79.899 Other long term (current) drug therapy; Z88.1 Allergy status to other antibiotic agents; Z88.7 Allergy status to serum and vaccine; Z88.8 Allergy status to other drugs, medicaments and biological substances; Z91.018 Allergy to other foods; Z93.2 Ileostomy status
CPT/HCPCS: 36415; 36600; 71020; 80048; 80053; 82803; 83605; 84484; 85025; 85610; 87040; 93005; 94640; 94660; 94760; A9270-GY; J0456; J0696; J2060; J2270; J2920; J3475; J7512; J7644

== ENCOUNTER 2017-05-17 13:19 | Inpatient (IN) | payer MEDICARE ==
[2017-05-17] MEDS ORDERED: Ondansetron INJ* 2 MG/ML VIAL ONE (14:24)
[2017-05-17] MEDS ORDERED: NS 0.9% 1000 ML* 1,000 ML IV ONE (14:25)
[2017-05-17] MEDS ORDERED: Ondansetron INJ* 2 MG/ML VIAL IV ONE ×2 (14:25→14:27)
[2017-05-17] MEDS ORDERED: NS 0.9% 1000 ML*IV.FLUID IV ONE (14:27)
[2017-05-17] MEDS ORDERED: NS 0.9% 1000 ML* 1,000 ML IV SCH (14:30)
[2017-05-17 14:41] LABS: Hematocrit 43 % (35-47); Hemoglobin 14.2 g/dl (12.0-16.0); Mean Corpuscular HGB Conc 33 g/dl (31-36); Mean Corpuscular Hemoglobin 31 pg (27-31); Mean Corpuscular Volume 94 fL (80-97); Mean Platelet Volume 7.8 um3 (7.4-10.4); Platelet Count 238 10^3/ul (150-450); Red Blood Count 4.58 10^6/ul (4.0-5.4); Red Cell Distribution Width 14 % (10.5-15); White Blood Count 32.4 10^3/ul (3.5-10.8)
[2017-05-17 14:43] LABS: INR 1.74 (0.77-1.02)
[2017-05-17 14:52] LABS: EGFR Non-African American 27.1 (>60)
[2017-05-17 15:05] LABS: ABS Basophils 0.2 10^3/ul (0-0.2); ABS Eosinophils 0.1 10^3/ul (0-0.6); ABS Lymphocytes 1.9 10^3/ul (1.0-4.8); ABS Monocytes 2.2 10^3/ul (0-0.8); ABS Neutrophils 28.1 10^3/ul (1.5-7.7); ABS Nucleated RBC 0 10^3/ul; Eosinophil % 0.2 % (0-6); Lymphocyte % 5.7 % (25-47); Nucleated Red Blood Cells % 0
--- NOTE | 2017-05-17 15:07 | RAD ---
HISTORY: Weakness COMPARISONS: Chest CT dated March 21, 2017 VIEWS: 1: frontal portable view of the chest at 2:50 PM FINDINGS: LINES AND TUBES: None. CARDIOMEDIASTINAL SILHOUETTE: Again noted is masslike density of the right upper paramediastinal region. This is slightly increased when compared to CT March 21, 2017. PLEURA: The costophrenic angles are sharp. No pleural abnormalities are noted. LUNG PARENCHYMA: As noted above, there is a masslike density of the right upper paramediastinal region. ABDOMEN: The upper abdomen is clear. There is no subphrenic gas. BONES AND SOFT TISSUES: No bone or soft tissue abnormalities are noted. IMPRESSION: THERE HAS BEEN PROGRESSION IN SIZE OF THE RIGHT UPPER MEDIASTINAL MASS NOTED ON THE PREVIOUS CT EXAMINATION, CONCERNING FOR PROGRESSION OF NEOPLASM.
--- NOTE | 2017-05-17 15:52 | RAD ---
CLINICAL HISTORY: Diffuse abdominal pain COMPARISON: January 09, 2017, December 03, 2016 TECHNIQUE: Multiple contiguous axial CT scans were obtained of the abdomen and pelvis, without intravenous contrast enhancement. Coronal and sagittal multiplanar reformations are submitted for review. Oral contrast was not administered. FINDINGS: The study is limited by the lack of intravenous contrast. This limits evaluation of the solid organs and vasculature. LUNG BASES: The lung bases are clear. The right lung mass noted on previous examination is not included within the [id number] the submitted images. LIVER: The liver is normal in shape, size, contour, and attenuation. BILE DUCTS: There is no intrahepatic or extrahepatic biliary dilatation. GALLBLADDER: The gallbladder is not visualized. Surgical clips are noted in the gallbladder fossa. PANCREAS: The pancreas is normal, without mass or ductal dilatation. SPLEEN: Normal in size and appearance. UPPER GI TRACT: Evaluation of the gastrointestinal tract is limited by incomplete gastric distention. The upper GI tract is unremarkable. SMALL BOWEL AND MESENTERY: An ileostomy is noted. There is a parastomal hernia containing small bowel loops. There is no obstruction. This is similar to the previous examination. COLON: The patient appears to be status post colectomy. ADRENALS: Normal bilaterally. KIDNEYS: There is stable left renal cyst. There is no appreciable hydronephrosis or nephrolithiasis. BLADDER: The bladder is smooth in contour. PELVIC ORGANS: There is a left ovarian cyst measuring 3.2 cm in size. This is persistent from January 09, 2017. AORTA: There is calcific atherosclerotic disease of the abdominal aorta and its branches, without aneurysmal dilatation IVC: Unremarkable LYMPH NODES: There is no lymphadenopathy by size criteria. ABDOMINAL WALL: As noted above, there is a right hemiabdomen ileostomy with parastomal hernia BONES AND SOFT TISSUES: There are mild diffuse degenerative changes. OTHER: None IMPRESSION: 1. STATUS POST COLECTOMY AND ILEOSTOMY WITH STABLE PARASTOMAL HERNIA. 2. THERE IS NO OBSTRUCTION. 3. LEFT OVARIAN CYST, PERSISTENT FROM MULTIPLE PREVIOUS EXAMINATIONS. GIVEN THE PATIENT'S AGE, RECOMMEND CONSIDERATION OF GYNECOLOGIC CONSULTATION IN THE NONACUTE SETTING. 4. ATHEROSCLEROSIS.
[2017-05-17] MEDS ORDERED: Piperacillin/Tazobac ADVAN(*) 3.375 GM in NS 0.9% 100 ML* 100 ML IVPB ONE (16:17)
[2017-05-17] MEDS: Lactated Ringers 1000 ml Bag*IV.FLUID IV ONE ×2 (16:31→18:20)
[2017-05-17 16:40] LABS: Urine Appearance Clear; Urine Blood 2+ (Negative); Urine Color Yellow; Urine Ketones Negative (Negative); Urine Protein 1+(30 mg/dL) (Negative); Urine Specific Gravity 1.013 (1.010-1.030); Urine Urobilinogen Negative (Negative)
[2017-05-17] MEDS ORDERED: Vancomycin(*) 1,250 MG IV x ONCE IVPB ONE ×2 (17:00)
[2017-05-17] MEDS ORDERED: Vancomycin(*) 1,000 MG VIAL IVPB SCH (17:00)
[2017-05-17] MEDS ORDERED: Ipratropium 0.5MG/2.5ML NEB* 0.5 MG/2.5 ML NEB.SOLN INH PRN (17:40)
[2017-05-17] MEDS ORDERED: Ondansetron INJ* 2 MG/ML VIAL IV PRN (17:40)
[2017-05-17] MEDS ORDERED: Cyanocobalamin INJ * 1,000 MCG/ML VIAL 1 ML VIAL IM SCH (18:00)
[2017-05-17] MEDS ORDERED: Vancomycin per Pharmacy* NOTE FOLLOW UP SCH (18:00)
[2017-05-17] MEDS ORDERED: Zosyn per Pharmacy* NOTE FOLLOW UP SCH (18:00)
[2017-05-17] MEDS ORDERED: Linezolid 600 MG IVPREMIX(*) 600 MG/300 ML BAG IVPB ONE (18:08)
--- NOTE | 2017-05-17 18:58 | ED ---
Marcy Zhao Elizabeth, scribed for Juanjo Bergeorn on 05/17/17 at 1451 . GI/ HPI - HPI Summary HPI Summary: The patient is a 71 year old female complaining of nausea. The patient additionally complains of emesis. Per triage note, the patient also reports back pain. The patient denies fever. Patient uses oxygen at home. Patient notes that she has had an Ileostomy and has a history of Crohns disease, COPD, and lung cancer. - History of Current Complaint Chief Complaint: EDNauseaVomitDiarrh Time Seen by Provider: 05/17/17 14:05 Stated Complaint: DIFFICULTY BREATHING Hx Obtained From: Patient Timing: Intermittent Current Severity: Mild Pain Intensity: 6 Location of Pain: Diffuse Associated Signs and Symptoms: Positive: Nausea, Vomiting. Negative: Fever Aggravating Factor(s): Palpation - Additional Pertinent History Primary Care Physician: SAMEERA - Allergy/Home Medications Allergies/Adverse Reactions: Allergies Allergy/AdvReac Type Severity Reaction Status Date / Time daptomycin Allergy See Comment Verified 05/17/17 13:46 doxycycline Allergy Vomiting Verified 05/17/17 13:46 epinephrine Allergy See Comment Verified 05/17/17 13:46 infliximab [From Remicade] Allergy Swelling Verified 05/17/17 13:46 levofloxacin [From Levaquin] Allergy Rash Verified 05/17/17 13:46 tetanus toxoid, adsorbed Allergy Swelling Verified 05/17/17 13:46 vancomycin Allergy Wheezing Verified 05/17/17 13:46 eggplant Allergy Mild Difficulty Uncoded 01/22/17 23:59 Breathing Home Medications: Home Medications Aspirin EC Low Dose* [Ecotrin EC Low Dose 81 MG*] 81 mg PO DAILY 05/17/17 [ History Confirmed 05/17/17] predniSONE TAB* [Deltasone TAB*] 10 mg PO DAILY 05/17/17 [History Confirmed ] PMH/Surg Hx/FS Hx/Imm Hx Endocrine/Hematology History: Reports: Hx Anticoagulant Therapy - coumadin Denies: Hx Diabetes Cardiovascular History: Reports: Hx Deep Vein Thrombosis, Hx Embolism - PE, Hx Hypotension, Hx Hypertension, Hx Syncope, 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 Denies: Hx Pacemaker/ICD Respiratory History: Reports: Hx Asthma - intermittent, Hx Chronic Bronchitis, Hx Chronic Obstructive Pulmonary Disease (COPD), Hx Pulmonary Embolism - 2010, Hx Sleep Apnea, Other Respiratory Problems/Disorders - O2 at home GI History: Reports: Hx Crohn's Disease, Hx Ileostomy, Other GI Disorders - Ileostomy placement History: Reports: Hx Acute Renal Failure, Hx Chronic Renal Failure, Other Problems/Disorders - Renal deficit per Dr Whittaker Denies: Hx Dialysis, Hx Renal Disease Musculoskeletal History: Reports: Hx Back Problems, Hx Osteoporosis, Hx Scoliosis - lumbar disc problems; scoliosis Sensory History: Reports: Hx Cataracts, Hx Contacts or Glasses, Hx Hearing Problem Denies: Hx Hearing Aid Opthamlomology History: Reports: Hx Cataracts, Hx Contacts or Glasses Neurological History: Reports: Hx Nerve Disease - neuropathy, 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 SEVERAL BOWEL RESECTIONS AND FISTULA, [facility] Hx Anesthesia Reactions: Yes - LOW BP - Immunization History Date of Tetanus Vaccine: utd Date of Influenza Vaccine: utd Infectious Disease History: No Infectious Disease History: Reports: Hx of Known/Suspected MRSA Denies: Traveled Outside the [place] in Last 30 Days - Family History Known Family History: Positive: Unknown - Parents very young., Other - Crohn's Disease - Social History Alcohol Use: Rare Alcohol Amount: 1 Q 2-3 MONTHS Hx Substance Use: No Substance Use Type: Reports: Other Substance Use Comment - Amount & Last Used: prescribed opium Hx Tobacco Use: Yes Smoking Status (MU): Former Smoker Type: Cigarettes Amount Used/How Often: 1-2 cigarettes per day Length of Time of Smoking/Using Tobacco: 53 years Have You Smoked in the Last Year: Yes Review of Systems Negative: Fever Positive: Vomiting, Nausea Positive: Other - back pain All Other Systems Reviewed And Are Negative: Yes Physical Exam - Summary Physical Exam Summary: Appearance: Well appearing, no pain distress Skin: warm, dry, reflects adequate perfusion Head/face: normal Eyes: EOMI, RUMA ENT: dry mucous membranes Neck: supple, non-tender Respiratory: CTA, breath sounds present Cardiovascular: RRR, pulses symmetrical Abdomen: diffuse tenderness, soft, ileostomy bag Bowel: present Musculoskeletal: normal, strength/ROM intact Neuro: normal, sensory motor intact, A&Ox3 Triage Information Reviewed: Yes Vital Signs On Initial Exam: Initial Vitals Temp Pulse Resp BP Pulse Ox 99.3 F 77 24 126/40 94 05/17/17 13:29 05/17/17 13:29 05/17/17 13:29 05/17/17 13:29 05/17/17 13:29 Vital Signs Reviewed: Yes Diagnostics - Vital Signs Vital Signs Temp Pulse Resp BP Pulse Ox 05/17/17 13:31 103 24 91 05/17/17 13:30 126/40 05/17/17 13:29 99.3 F 77 24 126/40 94 - Laboratory Lab Results: Lab Results 05/17/17 05/17/17 Range/Units 14:20 14:20 WBC 32.4 H (3.5-10.8) 10^3/ul RBC 4.58 (4.0-5.4) 10^6/ul Hgb 14.2 (12.0-16.0) g/dl Hct 43 (35-47) % MCV 94 (80-97) fL MCH 31 (27-31) pg MCHC 33 (31-36) g/dl RDW 14 (10.5-15) % Plt Count 238 (150-450) 10^3/ul MPV 7.8 (7.4-10.4) um3 Neut % (Auto) Pending Lymph % (Auto) Pending [place] % (Auto) Pending Eos % (Auto) Pending Baso % (Auto) Pending Absolute Neuts (auto) Pending Absolute Lymphs (auto) Pending Absolute Monos (auto) Pending Absolute Eos (auto) Pending Absolute Basos (auto) Pending Absolute Nucleated RBC Pending Nucleated RBC % Pending INR (Anticoag Therapy) 1.74 H (0.77-1.02) APTT 38.3 H (26.0-36.3) seconds Result Diagrams: 05/17/17 14:20 05/17/17 14:20 Lab Statement: Any lab studies that have been ordered have been reviewed, and results considered in the medical decision making process. - Radiology CXR Xray Interpretation: Positive (See Comments) - IMPRESSION: THERE HAS BEEN PROGRESSION IN SIZE OF THE RIGHT UPPER MEDIASTINAL MASS NOTED ON THE PREVIOUS CT EXAMINATION, CONCERNING FOR PROGRESSION OF NEOPLASM. Dr. Bergeron has reviewed this report. Radiology Interpretation Completed By: Radiologist - CT CT Abd/Pelvis CT Interpretation: Positive (See Comments) - IMPRESSION: 1. STATUS POST COLECTOMY AND ILEOSTOMY WITH STABLE PARASTOMAL HERNIA. 2. THERE IS NO OBSTRUCTION. 3. LEFT OVARIAN CYST, PERSISTENT FROM MULTIPLE PREVIOUS EXAMINATIONS. GIVEN THE PATIENT'S AGE, RECOMMEND CONSIDERATION OF GYNECOLOGIC CONSULTATION IN THE NONACUTE SETTING. 4. [address]. Dr. Bergeron has reviewed this report. CT Interpretation Completed By: Radiologist - EKG 14:57 Cardiac Rate: NL - 66 BPM EKG Rhythm: Sinus Rhythm ST Segment: Non-Specific GIGU Course/Dx - Course Course Of Treatment: The patient presented with nausea, vomiting, and back pain. An EKG reveals sinus rhythm at 66 bpm with non-specific ST changes. CXR reveals, per radiologist, progression in the size of the right upper mediastinal mass noted on the previous CT examination, concerning for progress of neoplasm. CT Abd/Pelvis reveals, per radiologist, status post colectomy and ileostomy with stable parastomal hernia, there is no obstruction, left ovarian cyst (persistent from previous examinations), and artherosclerosis. Dr. Bergeron has reviewed this radiology report. Bloodwork and UA obtained. In the ED course , the patient was given IV fluids, IV Zofran, Lactated ringers, Vancomycin, and Zosyn. We discussed patient care with Dr. Kasper, hospitalist, and they recommended admission to [facility]. Patient will be admitted with diagnosis of sepsis , lung cancer, COPD, Crohns disease, and pneumonia. The patient is agreeable with this plan. - Diagnoses Differential Diagnoses - Female: Aspiration, Pneumonia, Pyelonephritis, Sepsis, Urinary Tract Infection Provider Diagnoses: COPD (chronic obstructive pulmonary disease), Crohn's disease, Lung cancer, Sepsis, Pneumonia - Physician Notifications Discussed Care Of Patient With: Kadi Kasper Instructed by Provider To: Admit As Inpatient - Critical Care Time Critical Care Time: 30-74 min - 30 min Discharge - Sign-Out/Discharge Documenting (check all that apply): Discharge - admit to [facility] - Discharge Plan Condition: Stable Disposition: ADMITTED TO [facility] - Billing Disposition and Condition Condition: STABLE Disposition: HOSP-[facility] The documentation as recorded by the Marcy ray Elizabeth accurately reflects the service I personally performed and the decisions made by me, Juanjo Bergeron.
[2017-05-17] MEDS ORDERED: Morphine INJ* 2 MG/ML 1 ML CARPUJECT ONE (19:04)
[2017-05-17] MEDS: NS 0.9% 1000 ML* 1,000 ML IV SCH (19:49)
--- NOTE | 2017-05-17 19:49 | RAD ---
HISTORY: Rule out epidural abscess, back pain, nausea, elevated white blood cell count COMPARISONS: CT of the chest dated March 21, 2009 TECHNIQUE: The following sequences were obtained of the thoracic spine: Sagittal T1 and T2-weighted images, sagittal STIR images, coronal T2-weighted images, and axial T2-weighted images. . FINDINGS: Evaluation is somewhat limited by patient motion artifact. Localization is based on counting from C2 SPINAL CORD, CONUS, AND CAUDA EQUINA: The visualized spinal cord, conus, and cauda equina are normal in caliber, position, and signal intensity. There is no appreciable epidural fluid collection. ALIGNMENT: The alignment is normal. VERTEBRAL BODIES: There is a chronic compression deformity of T6, without bone edema. There is no osseous retropulsion. There is anterolateral marginal osteophyte formation. JOINTS: There is mild osteoarthritis of the costovertebral articulations. MUSCULATURE: Mild fatty infiltration. INTERVERTEBRAL DISCS: There is diffuse loss of intervertebral disc height and T2 signal throughout the spine. AXIAL IMAGES: There is no central canal stenosis or neuroforaminal narrowing. SOFT TISSUES: There is a small right pleural effusion. OTHER: None. IMPRESSION: 1. CHRONIC COMPRESSION DEFORMITY OF T6 WITHOUT OSSEOUS RETROPULSION. 2. NO EPIDURAL FLUID COLLECTION TO SUGGEST EPIDURAL ABSCESS. NO INTERVERTEBRAL DISC FLUID OR BONE EDEMA TO SUGGEST OSTEOMYELITIS DISCITIS. 3. MILD DEGENERATIVE DISC DISEASE AND OSTEOPOROSIS. THERE IS NO SIGNIFICANT NEURAL FORAMINAL NARROWING OR CENTRAL CANAL STENOSIS.
[2017-05-17] MEDS: PARoxetine HCL TAB* 20 MG PO SCH (20:15)
[2017-05-17] MEDS: Warfarin TAB(*) 2 MG PO SCH (20:15)
[2017-05-17] MEDS: Acetaminophen TAB* 325 MG PO PRN (20:26)
[2017-05-17] MEDS ORDERED: Piperacillin/Tazobactam 13.5 GM IV 24 hour continuous infusion IVPB SCH ×2 (20:30)
[2017-05-17] MEDS: LORazepam TAB(*) 0.5 MG PO PRN (20:34)
--- NOTE | 2017-05-18 00:09 | HP ---
CC: Dr. France * HOSPITAL MEDICINE HISTORY AND PHYSICAL: DATE OF ADMISSION: 05/17/17 PRIMARY CARE PHYSICIAN: Dr. France. ATTENDING PHYSICIAN: Dr. Kadi Kasper *(dictation provided by Leana Onofre NP) . CHIEF COMPLAINT: Back pain and nausea. HISTORY OF PRESENT ILLNESS: Ms. Tovar is a 71-year-old female with a past medical history of lung cancer, COPD, history of DVT, PE and Crohn's disease, status post colectomy with ileostomy, who presents today to the hospital with concern for back pain, nausea, and shortness of breath. Ms. Tovar is feeling quite ill and some of the information is obtained from her friends who are at the bedside as well as from her report. The story at this point is that the patient was doing well yesterday; she is normally independent, but she needs support in the home. Her healthcare proxy and partner is out of town and therefore friends are taking turns helping to care for her. The patient's friend who is at the bedside was not with her until right prior to admission, but the story that she heard from other caretakers is that the patient was vomiting last evening. When the friend saw her today, she was complaining of severe back pain. She has not vomited since approximately 7 a.m. She complains of some shortness of breath, but clearly has significant shortness of breath at baseline. The patient states that her back pain is in the similar location to her previous history of back pain due to chronic T6 compression fracture, but that she feels it is much more severe. She reports feeling "ill all over." No reported fever at home. Patient denies abdominal pain or nausea at this time. She confirms the shortness of breath worse than baseline. She denies headache. She has had some loose stool in her ileostomy. She denies weakness, numbness, or tingling in the upper or lower extremities. In the emergency room, Ms. Tovar was confirmed to have sepsis based on elevated respiratory rate and leukocytosis. Her white blood cell count is 32.4 , her INR is subtherapeutic at 1.74. She is on Coumadin. Her creatinine is 1.83, which is near her baseline. Her lactic acid is 2.3. She has received 30 mL per kg of IV fluids. Her troponin is 0.04, CRP is 92.26. In terms of source of infection, her urinalysis shows only a 1+ leuk esterase. No bacteria is present. Her blood cultures have been sent. Her chest x-ray shows worsening of left upper lobe mass. The abdomen and pelvis CT shows no acute abnormality. PAST MEDICAL HISTORY: 1. Crohn's disease with colectomy and ileostomy. 2. History of DVT and PE, on Coumadin. 3. COPD. 4. Lung cancer, status post radiation. 5. Anxiety. 5. Depression. 6. Restless legs syndrome. 7. T6 compression fracture. MEDICATIONS: 1. Opium tincture 0.6 mL p.o. q.4 hours as needed. 2. Aspirin 81 mg p.o. daily. 3. Calcitriol 0.25 mg p.o. q.a.m. 4. Cinacalcet 30 mg p.o. q.a.m. 5. Cyanocobalamin 1000 mcg IM weekly. 6. Guaifenesin ER 600 mg p.o. b.i.d. p.r.n. 7. Ipratropium 0.5 mg inhaled q.6 hours p.r.n. 8. Lorazepam 0.5 mg p.o. b.i.d. p.r.n. 9. Paroxetine 30 mg p.o. q.p.m. 10. Prednisone 10 mg p.o. daily. 11. Tiotropium 1 cap inhaled p.o. q.a.m. 12. Warfarin 2 mg p.o. q.p.m. ALLERGIES: DAPTOMYCIN, DOXYCYCLINE, EPINEPHRINE, INFLIXIMAB, LEVOFLOXACIN, TETANUS TOXOID, VANCOMYCIN which causes wheezing and EGGPLANT. FAMILY HISTORY: Her father had heart disease and also reports a paternal grandmother had diabetes. SOCIAL HISTORY: No report of current tobacco abuse. No report of alcohol drug use. She has a partner, Nikki Desir who is the healthcare proxy. REVIEW OF SYSTEMS: A 14-point review of systems was completed with Ms. Tovar and all those mentioned above were negative. PHYSICAL EXAMINATION GENERAL: Ms. Tovar is lying in the bed. She is in no acute distress and sleeping. She is initially difficult to arouse, but then is appropriate during conversation. VITAL SIGNS: Temperature 99.3, pulse rate 69, respiratory rate 27, O2 saturation 98% on 4 L nasal cannula, blood pressure 102/27. LUNGS: Have rhonchi bilaterally throughout. There is no wheezing. There is good aeration. There is no accessory muscle use. HEART: S1, S2. No murmur, rub, or gallop and regular. ABDOMEN: Soft, nontender. There is an ileostomy place with soft stool. EXTREMITIES: No cyanosis or edema. NEURO: She is drowsy, but responds appropriately once awoken. She is oriented x3. She moves all extremities equally. There is no facial asymmetry or focal weakness. Extraocular movements are intact. BACK: Back was palpated. Spine was palpated. The patient complained of pain at about somewhere between T4 and T6 with palpation. She states that this is where she has pain usually, but that this is much more severe. SKIN: Intact. ASSESSMENT AND PLAN: Ms. Tovar is a 71-year-old female with a past medical history of COPD, lung cancer and Crohn's disease with ileostomy as well as deep vein thrombosis, pulmonary embolism on Coumadin, who presents to the hospital today with concern for back pain associated with nausea, vomiting, and sepsis. Our plans are for inpatient admission as expected length of stay to be greater than 2 days for the followin. Sepsis: The source of sepsis is not entirely clear. Her main complaint is of back pain and she does have a history of a T6 compression fracture at that level; however, this pain is much more severe, is associated with sepsis and therefore I think ruling out epidural abscess is essential. I spoke with radiology and Dr. Daniels will be calling in the team to assess her appropriateness for MRI study. The patient has nausea, but there is no evidence of acute abdominal process. She had a urinalysis, which showed only 1+ leuk esterase, but no bacteria or nitrite. Blood cultures have been sent. Lactic acid is 2.3 and will be repeated. She did receive the appropriate amount of IV fluids in the ED at 30 mL per kg. We will continue with IV fluids as her mucous membranes remained dry. Her vitals are stable. She is going to continue on linezolid (vanomycin allergy) and Zosyn until she stabilizes or etiology is determined. Repeat all labs in a.m. It is possible that she has acute pneumonia as certainly her lungs are congested, but it is unclear how much more severe this is from her baseline. The chest x-ray shows worsening of her mass, but no clear new infiltrate. 2. Chronic obstructive pulmonary disease. Plan to continue her home prednisone. She is not wheezing at all. She will continue on DuoNebs as needed. I see no evidence of acute exacerbation. She will have guaifenesin as needed p.r.n. for congestion. 3. Hx of DVT/PE. Her INR is subtherapeutic, but with her acute illness and need for antibiotics, plan to leave her warfarin dose at the current dose of 2 mg and recheck in a.m. 4. Nausea and vomiting, patient has reported not had vomiting since early this morning. She will have ondansetron available p.r.n. for depression. 5. Depression. Continue Paxil. 6. Code status is DNR. TIME SPENT: Approximately 75 minutes were spent on the admission of this patient, more than half of the time was spent with the patient at the bedside reviewing the events leading up to this hospitalization, performing the physical examination, and reviewing the plan of care. LEANA ONOFRE, LUIS MANUEL [id number]/CPS #: [id number] ANI
[2017-05-18] MEDS: Morphine INJ* 2 MG/ML 1 ML CARPUJECT IV PRN ×5 (00:48→14:40)
[2017-05-18] MEDS: Acetaminophen TAB* 325 MG PO PRN ×2 (03:50→20:00)
[2017-05-18 06:12] LABS: Hematocrit 36 % (35-47); Hemoglobin 12.1 g/dl (12.0-16.0); Mean Corpuscular HGB Conc 33 g/dl (31-36); Mean Corpuscular Hemoglobin 31 pg (27-31); Mean Corpuscular Volume 93 fL (80-97); Mean Platelet Volume 7.6 um3 (7.4-10.4); Platelet Count 197 10^3/ul (150-450); Red Blood Count 3.93 10^6/ul (4.0-5.4); Red Cell Distribution Width 14 % (10.5-15)
[2017-05-18 06:13] LABS: ABS Basophils 0.1 10^3/ul (0-0.2); ABS Eosinophils 0.1 10^3/ul (0-0.6); ABS Lymphocytes 1.3 10^3/ul (1.0-4.8); ABS Monocytes 1.7 10^3/ul (0-0.8); ABS Neutrophils 23.8 10^3/ul (1.5-7.7); ABS Nucleated RBC 0 10^3/ul; Eosinophil % 0.3 % (0-6); Lymphocyte % 4.9 % (25-47); Nucleated Red Blood Cells % 0
[2017-05-18 06:26] LABS: INR 1.81 (0.77-1.02)
[2017-05-18 06:45] LABS: EGFR Non-African American 22.7 (>60)
[2017-05-18] MEDS: NS 0.9% 1000 ML* 1,000 ML IV SCH ×3 (07:40→22:35)
[2017-05-18] MEDS: Tiotropium CAP.INH* CAP.INH/18 MCG (USE ORDER SET !) INH SCH (08:22)
[2017-05-18] MEDS: Calcitriol CAP* 0.25 MCG PO SCH (08:58)
[2017-05-18] MEDS: guaiFENesin ER TAB 600 MG PO PRN ×2 (08:58→20:07)
[2017-05-18] MEDS: Aspirin EC TAB* 81 MG TAB.EC PO SCH (08:58)
[2017-05-18] MEDS: predniSONE TAB* 10 MG PO SCH (08:58)
[2017-05-18] MEDS: Cinacalcet TAB* 30 MG PO SCH (08:58)
[2017-05-18] MEDS: LORazepam TAB(*) 0.5 MG PO PRN ×2 (08:58→20:35)
[2017-05-18] MEDS ORDERED: Spiriva Inhaler DEVICE* 1 EACH DEVICE INH ONE (09:00)
[2017-05-18] MEDS: Albuterol/Ipratropium NEB.SOL* Albuterol 2.5 MG/Ipratropium 0.5 MG 3 ML INH PRN ×3 (11:01→19:57)
[2017-05-18] MEDS: PIPERACILLIN IVPB SCH ×4 (17:03→20:38)
[2017-05-18] MEDS: TAZOBACTAM IVPB SCH ×4 (17:03→20:38)
--- NOTE | 2017-05-18 17:13 | PN ---
Subjective Date of Service: 05/18/17 Interval History: . Interviewed and examined patient at bedside; Discussed case with LUIS MANUEL Onofre; Reviewed previous notes and radiology results; MRI T-spine did NOT show disciiis or epidural collection, but did show chronic T6 vertebral body compression. WBC Still Quite Elevated 05/17/17 05/18/17 14:20 05:57 WBC 32.4 H 27.0 H Neut % (Auto) 86.8 H 88.3 H Family History: Unchanged from Admission Social History: Unchanged from Admission Past Medical History: Unchanged from Admission Objective Active Medications: . Acetaminophen (Tylenol Tab*) 650 mg PO Q6H PRN PRN Reason: pain/fever Last Admin: 05/18/17 03:50 Dose: 650 mg Albuterol/Ipratropium (Duoneb (Albuterol 2.5 Mg/Ipratropium 0.5 Mg)) 1 neb INH Q4H PRN PRN Reason: SOB/WHEEZING Last Admin: 05/18/17 15:17 Dose: 1 neb Aspirin (Aspirin Ec Low Dose*) 81 mg PO DAILY [facility] Last Admin: 05/18/17 08:58 Dose: 81 mg Calcitriol (Rocaltrol Cap*) 0.25 mcg PO QAM [facility] Last Admin: 05/18/17 08:58 Dose: 0.25 mcg Cinacalcet (Sensipar Tab*) 30 mg PO QAM [facility] Last Admin: 05/18/17 08:58 Dose: 30 mg Cyanocobalamin (Vitamin B12 Inj *) 1,000 mcg IM WEEKLY [facility] Guaifenesin (Mucinex*) 600 mg PO BID PRN PRN Reason: CONGESTION Last Admin: 05/18/17 08:58 Dose: 600 mg Sodium Chloride (Ns 0.9% 1000 Ml*) 1,000 mls @ 150 mls/hr IV PER RATE [facility] Last Admin: 05/18/17 14:39 Dose: 150 mls/hr Piperacillin Sod/Tazobactam (Sod 2.25 gm/ Dextrose) 50 mls @ 100 mls/hr IVPB Q6H [facility] Last Admin: 05/18/17 17:03 Dose: 100 mls/hr Lorazepam (Ativan Tab(*)) 0.5 mg PO BID PRN PRN Reason: ANXIETY Last Admin: 05/18/17 08:58 Dose: 0.5 mg Morphine Sulfate (Morphine Inj (Syringe)*) 2 mg IV Q2H PRN PRN Reason: PAIN Last Admin: 05/18/17 14:40 Dose: 2 mg Ondansetron HCl (Zofran Inj*) 4 mg IV Q6H PRN PRN Reason: NAUSEA Opium Tincture (Opium Tincture*) 0.6 mg PO Q5H PRN PRN Reason: diarrhea Paroxetine HCl (Paxil Tab*) 30 mg PO QPM [facility] Last Admin: 05/17/17 20:15 Dose: 30 mg Pharmacy Consult (Zosyn Per Pharmacy*) 1 note FOLLOW UP .ZOSYN PER PHARMACY [facility] Prednisone (Deltasone Tab*) 10 mg PO DAILY [facility] Last Admin: 05/18/17 08:58 Dose: 10 mg Tiotropium [place] (Spiriva Cap.Inh*) 1 cap INH QAM [facility] Last Admin: 05/18/17 08:22 Dose: 1 cap Warfarin Sodium (Coumadin Tab(*)) 2 mg PO QPM [facility] PRN Reason: Protocol Last Admin: 05/17/17 20:15 Dose: 2 mg Vital Signs - 8 hr 05/18/17 05/18/17 05/18/17 10:32 11:04 11:29 Temperature Pulse Rate 68 Respiratory 14 16 14 Rate Blood Pressure (mmHg) O2 Sat by Pulse 98 Oximetry 05/18/17 05/18/17 05/18/17 11:44 11:49 13:00 Temperature 98.5 F Pulse Rate 72 Respiratory 22 16 18 Rate Blood Pressure 125/97 (mmHg) O2 Sat by Pulse 97 Oximetry Oxygen Devices in Use Now: Nasal Cannula Appearance: NAD Eyes: No Scleral Icterus Ears/Nose/Mouth/Throat: Clear Oropharnyx Neck: Trachea Midline Respiratory: Symmetrical Chest Expansion and Respiratory Effort, Clear to Auscultation Cardiovascular: RRR Abdominal: No Hepatosplenomegaly Lymphatic: No Cervical Adenopathy Extremities: No Edema Skin: No Rash or Ulcers Neurological: Alert and Oriented x 3 Lines/Tubes/Other Access: Clean, Dry and Intact Peripheral IV Nutrition: Taking PO's Result Diagrams: 05/18/17 05:57 05/18/17 05:51 Additional Lab and Data: . Microbiology and Other Data: Microbiology 05/17/17 18:12 Influenza Types A,B Antigen (ROSALBA) - Final Nasal Specimen received for Influenza A/B Molecular testing Assess/Plan/Problems-Billing . Assessment: 71 year old woman with PMH of Crohn's disease (s/p ileostom), s/p radiation for lung cancer, COPD, and PE/DVT (on coumadin), now admitted for nausea, vomiting and worsening back pain. patient MET criteria for sepsis at admission. - Patient Problems (1) Acute on chronic renal failure Current Visit: No Status: Acute Priority: High Onset Date: 01/10/14 Code (s): N17.9 - ACUTE KIDNEY FAILURE, UNSPECIFIED; N18.9 - CHRONIC KIDNEY DISEASE, UNSPECIFIED SNOMED Code(s): 041606863 Comment: - Cr up to 2.1 from 1.8 at admission - Baseline, in Jan 2017, was 1.49. (2) Anxiety Current Visit: No Status: Acute Code(s): F41.9 - ANXIETY DISORDER, UNSPECIFIED SNOMED Code(s): 67359642 Comment: Continue 0.5 mg ativan BID with additional breakthrough prn with panic attacks after she changes ostomy (3) Pharyngitis Current Visit: Yes Status: Acute Priority: High Code(s): J02.9 - ACUTE PHARYNGITIS, UNSPECIFIED Comment: - bacterial causes would be covered with piperacillin - lozenges ordered - IVF
[2017-05-18] MEDS: Warfarin TAB(*) 2 MG PO SCH (17:35)
[2017-05-18] MEDS: PARoxetine HCL TAB* 20 MG PO SCH (17:35)
[2017-05-18] MEDS ORDERED: Artificial Tears* 15 ML BTL BOTH EYES PRN (19:31)
[2017-05-18] MEDS: Opium Tincture* 6 MG/0.6 ML ORAL.LIQ SYRINGE PO PRN (19:51)
[2017-05-18] MEDS ORDERED: Ipratropium 0.5MG/2.5ML NEB* 0.5 MG/2.5 ML NEB.SOLN ONE (22:51)
[2017-05-19] MEDS ORDERED: Piperacillin/Tazobactam VIAL*) 3.375 GM VIAL (COMPD & OVERRIDE) IVPB ONE (04:29)
[2017-05-19] MEDS: PIPERACILLIN IVPB SCH ×4 (04:32→10:06)
[2017-05-19] MEDS: TAZOBACTAM IVPB SCH ×4 (04:32→10:06)
[2017-05-19] MEDS: LORazepam TAB(*) 0.5 MG PO PRN ×2 (04:44→19:57)
[2017-05-19] MEDS: Tiotropium CAP.INH* CAP.INH/18 MCG (USE ORDER SET !) INH SCH (08:35)
[2017-05-19] MEDS: Ipratropium 0.5MG/2.5ML NEB* 0.5 MG/2.5 ML NEB.SOLN INH PRN ×2 (08:38→13:19)
[2017-05-19] MEDS: NS 0.9% 1000 ML* 1,000 ML IV SCH (09:27)
[2017-05-19] MEDS: Acetaminophen TAB* 325 MG PO PRN ×2 (10:04→20:02)
[2017-05-19] MEDS: Calcitriol CAP* 0.25 MCG PO SCH (10:04)
[2017-05-19] MEDS: Cinacalcet TAB* 30 MG PO SCH (10:04)
[2017-05-19] MEDS: guaiFENesin ER TAB 600 MG PO PRN (10:04)
[2017-05-19] MEDS: Aspirin EC TAB* 81 MG TAB.EC PO SCH (10:04)
[2017-05-19] MEDS: Opium Tincture* 6 MG/0.6 ML ORAL.LIQ SYRINGE PO PRN (10:05)
[2017-05-19] MEDS: predniSONE TAB* 10 MG PO SCH (10:05)
--- NOTE | 2017-05-19 13:26 | CONS ---
CONSULTATION REPORT: DATE OF CONSULT: 05/19/17. REQUESTING PHYSICIAN: Dr. Angel. CONSULTING SERVICE: Infectious Disease. REASON FOR CONSULTATION: Leukocytosis. IMPRESSION: 1. Left otitis; bacterial versus viral, as well as pharyngitis. 2. Leukocytosis, which is improving on Zosyn. 3. Severe mid back pain. She does have a T6 compression fracture, which is chronic and MRI did not show osteodiskitis or epidural collection. 4. Crohn's, status post colectomy and ileostomy. 5. Deep venous thrombosis/pulmonary embolism, anticoagulated. RECOMMENDATION: Stop Zosyn. Start Augmentin. Follow her ear and throat symptoms, as well as ensure that her spine pain is improving. HISTORY OF PRESENT ILLNESS: This is a 71-year-old woman with T6 compression fracture admitted with severe back pain. She was found to have leukocytosis of 32,000, CRP of about 100. She was stared on Zosyn. Blood cultures were sent and are negative at this point. Urine culture is negative. Influenza PCR negative. The white blood cell count is down 27 today and creatinine is 2.1 today. Troponin is 0.04. She had chest x-ray that showed right upper mediastinal mass which is progressing. CT of the abdomen and pelvis shows parastomal hernia, which is stable; left ovarian cyst. Her back pain is a little better. She has no neck pain. She does not have pain with moving her legs. She does not feel weak in her arms or legs. She has noticed about 3 days of left ear and throat pain, hurts to swallow, there all the time, it is being a little bit better today. No change in her hearing. PAST MEDICAL HISTORY: 1. Crohn's disease, status post colectomy and ileostomy. 2. DVT/PE on Coumadin. 3. COPD. 4. Lung cancer treated with radiation. 5. Anxiety. 6. Depression. 7. Restless leg. 8. T6 compression fracture. ALLERGIES: DAPTOMYCIN caused elevated CK, DOXYCYCLINE, EPINEPHRINE, INFLIXIMAB, LEVAQUIN, TETANUS TOXOID, VANCOMYCIN. MEDICATIONS: 1. Tylenol. 2. Aspirin. 3. Calcitriol. 4. Cinacalcet. 5. Vitamin B12 once a week. 6. Guaifenesin. 7. Spiriva. 8. Opium tincture. 9. Prednisone 10 mg a day. 10. Warfarin. SOCIAL HISTORY: No travel or sick contacts. Past smoker. FAMILY HISTORY: No recurrent infection. REVIEW OF SYSTEMS: A 14-point review of systems was all negative, other than noted above. PHYSICAL EXAM: Vital Signs: Temperature 37, heart rate is 80, respiratory rate 20, blood pressure 119/46, oxygen saturation 94% on 4 L. In general, she is awake not in distress. Neurologic: She is alert. She is oriented x3. Follows commands. HEENT: There is no conjunctival hemorrhage. Oropharynx without lesions. There is mild pharyngeal erythema. There is left tympanic membrane erythema and slight bulging. The canal is normal. Neck: Supple without mass. Lymph Nodes: There is no inguinal, axillary, or epitrochlear lymphadenopathy. Heart is regular rate and rhythm without murmurs, rubs or gallops. Lungs are clear to auscultation bilaterally. Abdomen is soft, nontender, nondistended. Bowel sounds present. Ostomy is present with air and liquid stool. Skin: There are no rashes or splinter hemorrhages. Musculoskeletal: There is thoracic tenderness to palpation. There is no lumbar or cervical spine tenderness. There is no joint synovitis. LABORATORY DATA: Creatinine 2.1. White blood cell count 27, hemoglobin 12, platelets 187. Urinalysis shows blood, leukocyte esterase, no nitrites. Please see impressions and recommendation outlined above. Thank you for asking me to see Ms. Tovar in consultation. [id number]/[facility] #: [id number] ANI
[2017-05-19] MEDS ORDERED: NS 0.9% 1000 ML* 1,000 ML IV ONE (14:24)
[2017-05-19] MEDS: Ipratropium 0.5MG/2.5ML NEB* 0.5 MG/2.5 ML NEB.SOLN INH SCH ×2 (14:31→19:15)
[2017-05-19] MEDS: PARoxetine HCL TAB* 20 MG PO SCH (17:15)
[2017-05-19] MEDS: Warfarin TAB(*) 2 MG PO SCH (17:16)
--- NOTE | 2017-05-19 17:17 | PN ---
Subjective Date of Service: 05/19/17 Interval History: . Patient still feels unwell. Saw Dr. Cook who felt she has OM. Had conversation with spouse in [place]. Points of conversation included - IV fluids - diet consistency - concern for side effect of ABX - COPD treatment frequencies General questions asked and answered. Will check labs in AM; all in agreement. . Family History: Unchanged from Admission Social History: Unchanged from Admission Past Medical History: Unchanged from Admission Objective Active Medications: . Acetaminophen (Tylenol Tab*) 650 mg PO Q6H PRN PRN Reason: pain/fever Last Admin: 05/19/17 10:04 Dose: 650 mg Amoxicillin/Clavulanate Potassium (Augmentin Tab*) 500 mg PO BID [facility] Aspirin (Aspirin Ec Low Dose*) 81 mg PO DAILY [facility] Last Admin: 05/19/17 10:04 Dose: 81 mg Calcitriol (Rocaltrol Cap*) 0.25 mcg PO QAM [facility] Last Admin: 05/19/17 10:04 Dose: 0.25 mcg Cinacalcet (Sensipar Tab*) 30 mg PO QAM [facility] Last Admin: 05/19/17 10:04 Dose: 30 mg Cyanocobalamin (Vitamin B12 Inj *) 1,000 mcg IM WEEKLY [facility] Guaifenesin (Mucinex*) 600 mg PO BID PRN PRN Reason: CONGESTION Last Admin: 05/19/17 10:04 Dose: 600 mg Sodium Chloride (Ns 0.9% 1000 Ml*) 1,000 mls @ 150 mls/hr IV PER RATE [facility] Last Admin: 05/19/17 09:27 Dose: 150 mls/hr Ipratropium [place] (Atrovent 0.5 Mg Neb.Vesna*) 0.5 mg INH [id number] AWAKE [facility] Last Admin: 05/19/17 14:31 Dose: Not Given Lorazepam (Ativan Tab(*)) 0.5 mg PO BID PRN PRN Reason: ANXIETY Last Admin: 05/19/17 04:44 Dose: 0.5 mg Morphine Sulfate (Morphine Inj (Syringe)*) 2 mg IV Q2H PRN PRN Reason: PAIN Last Admin: 05/18/17 14:40 Dose: 2 mg Ondansetron HCl (Zofran Inj*) 4 mg IV Q6H PRN PRN Reason: NAUSEA Opium Tincture (Opium Tincture*) 6 mg PO Q4H PRN PRN Reason: diarrhea Paroxetine HCl (Paxil Tab*) 30 mg PO QPM [facility] Last Admin: 05/18/17 17:35 Dose: 30 mg Polyvinyl Alcohol (Polyvinyl Alcohol 1.4% Opth*) 1 drop BOTH EYES Q2H PRN PRN Reason: DRY EYE Last Admin: 05/18/17 19:51 Dose: 1 drop Prednisone (Deltasone Tab*) 10 mg PO DAILY [facility] Last Admin: 05/19/17 10:05 Dose: 10 mg Throat Lozenges (Chloraseptic Bradford*) 1 bradford PO Q6H PRN PRN Reason: SORE THROAT Tiotropium [place] (Spiriva Cap.Inh*) 1 cap INH QAM [facility] Last Admin: 05/19/17 08:35 Dose: 1 cap Warfarin Sodium (Coumadin Tab(*)) 2 mg PO QPM [facility] PRN Reason: Protocol Last Admin: 05/18/17 17:35 Dose: 2 mg . Vital Signs - 8 hr 05/19/17 05/19/17 05/19/17 10:05 11:43 13:28 Temperature 98.6 F Pulse Rate 63 70 Respiratory 22 15 18 Rate Blood Pressure 109/46 (mmHg) O2 Sat by Pulse 96 93 Oximetry 05/19/17 05/19/17 14:48 15:40 Temperature 99.0 F Pulse Rate 70 Respiratory 18 20 Rate Blood Pressure 128/49 (mmHg) O2 Sat by Pulse 98 Oximetry Oxygen Devices in Use Now: Nasal Cannula Appearance: NAD Eyes: No Scleral Icterus Ears/Nose/Mouth/Throat: - - posterior pharyngeal erythema Neck: Trachea Midline Respiratory: Symmetrical Chest Expansion and Respiratory Effort Cardiovascular: NL Sounds; No Murmurs; No JVD Abdominal: - - ostomy Lymphatic: No Cervical Adenopathy Extremities: No Edema Skin: No Rash or Ulcers Neurological: Alert and Oriented x 3 Lines/Tubes/Other Access: Clean, Dry and Intact Peripheral IV Nutrition: Taking PO's Result Diagrams: 05/18/17 05:57 05/18/17 05:51 Additional Lab and Data: . Microbiology and Other Data: Microbiology 05/17/17 18:12 Influenza Types A,B Antigen (ROSALBA) - Final Nasal Specimen received for Influenza A/B Molecular testing Assess/Plan/Problems-Billing . Assessment: 71 year old woman with PMH of Crohn's disease (s/p ileostom), s/p radiation for lung cancer, COPD, and PE/DVT (on coumadin), now admitted for nausea, vomiting and worsening back pain. IN REVIEW OF ALL DATA SO FAR IN THIS ADMISSION, I THINK PATIENT WAS NOT SEPTIC, ALTHOUGH AT SEVERAL POINTS THERE WAS SUGGESTION OF POSSIBLE OR SUSPECTED SEPSIS. BUT...THAT IS NOT THE CASE AND AT THIS POINT, I DO NOT BELIEVE SHE WAS SEPTIC DURING THIS ADMISSION. . - Patient Problems (1) Acute on chronic renal failure Current Visit: No Status: Acute Priority: High Onset Date: 01/10/14 Code (s): N17.9 - ACUTE KIDNEY FAILURE, UNSPECIFIED; N18.9 - CHRONIC KIDNEY DISEASE, UNSPECIFIED SNOMED Code(s): 969655972 Comment: - Cr elevated - Baseline, in Jan 2017, was 1.49. - check BMP (2) Anxiety Current Visit: No Status: Acute Code(s): F41.9 - ANXIETY DISORDER, UNSPECIFIED SNOMED Code(s): 31516310 Comment: Continue 0.5 mg ativan BID with additional breakthrough prn with panic attacks after she changes ostomy (3) Pharyngitis Current Visit: Yes Status: Acute Priority: High Code(s): J02.9 - ACUTE PHARYNGITIS, UNSPECIFIED Comment: - bacterial causes would be covered with piperacillin ==> changed to Augmentin by ID - Lozenges ordered - IVF ongoing (4) Otitis media Current Visit: Yes Status: Acute Priority: High Code(s): H66.90 - OTITIS MEDIA, UNSPECIFIED, UNSPECIFIED EAR Comment: - likely bacterial - augmentin ordered
[2017-05-19] MEDS: Amoxicillin/Clavulanate TAB* 500 MG PO SCH (19:57)
[2017-05-20] MEDS: NS 0.9% 1000 ML* 1,000 ML IV SCH ×3 (00:33→14:17)
[2017-05-20] MEDS: Ipratropium 0.5MG/2.5ML NEB* 0.5 MG/2.5 ML NEB.SOLN INH SCH ×4 (01:37→20:39)
[2017-05-20] MEDS: Acetaminophen TAB* 325 MG PO PRN ×2 (03:44→16:34)
[2017-05-20 07:25] LABS: ABS Basophils 0 10^3/ul (0-0.2); ABS Eosinophils 0.2 10^3/ul (0-0.6); ABS Lymphocytes 1.1 10^3/ul (1.0-4.8); ABS Monocytes 0.8 10^3/ul (0-0.8); ABS Neutrophils 14.6 10^3/ul (1.5-7.7); ABS Nucleated RBC 0 10^3/ul; Eosinophil % 1.1 % (0-6); Hematocrit 33 % (35-47); Hemoglobin 10.8 g/dl (12.0-16.0); Lymphocyte % 6.4 % (25-47); Mean Corpuscular HGB Conc 33 g/dl (31-36); Mean Corpuscular Hemoglobin 31 pg (27-31); Mean Corpuscular Volume 93 fL (80-97); Mean Platelet Volume 7.8 um3 (7.4-10.4); Nucleated Red Blood Cells % 0; Platelet Count 234 10^3/ul (150-450); Red Blood Count 3.52 10^6/ul (4.0-5.4); Red Cell Distribution Width 14 % (10.5-15); White Blood Count 16.7 10^3/ul (3.5-10.8)
[2017-05-20] MEDS: predniSONE TAB* 10 MG PO SCH (08:02)
[2017-05-20] MEDS: guaiFENesin ER TAB 600 MG PO PRN ×2 (08:02→16:35)
[2017-05-20] MEDS: LORazepam TAB(*) 0.5 MG PO PRN (08:03)
[2017-05-20] MEDS: Tiotropium CAP.INH* CAP.INH/18 MCG (USE ORDER SET !) INH SCH (08:14)
[2017-05-20] MEDS ORDERED: Potassium Chlor TAB* 10 MEQ TAB.ER PO ONE (08:17)
[2017-05-20] MEDS: Aspirin EC TAB* 81 MG TAB.EC PO SCH (09:29)
[2017-05-20] MEDS: Calcitriol CAP* 0.25 MCG PO SCH (09:30)
[2017-05-20] MEDS: Cinacalcet TAB* 30 MG PO SCH (09:30)
[2017-05-20] MEDS ORDERED: PROCHLORPERAZINE INJ 5 MG/ML 2 ML VIAL IV PRN (13:15)
[2017-05-20] MEDS: Morphine INJ* 2 MG/ML 1 ML CARPUJECT IV PRN ×2 (13:21→21:38)
--- NOTE | 2017-05-20 15:11 | PN ---
Progress Note - Progress Note Date of Service: 05/20/17 SOAP: Subjective: CC: leukocytosis HPI: 71 year old woman admitted with low back pain; chronic T spine compression fracture on MRI, no spine infection. Elevated WBC, trending down each day, initially on zosyn now augmentin. No abd pain, fever, rash, or diarrhea. Left ear pain a little better, no change in hearing. Some cough, similar to baseline , non productive. Objective: Vital Signs Temp 36.7 C 05/20/17 07:21 Pulse 62 05/20/17 13:20 Resp 18 05/20/17 13:21 BP 129/42 05/20/17 11:27 Pulse Ox 98 05/20/17 13:20 Intake & Output 05/19/17 05/20/17 05/20/17 18:59 06:59 18:59 Intake Total 2152 2460 2121 Output Total 800 925 795 Balance 1352 1535 1326 Intake: IV Fluids 2031 1440 1831 NS (0.9%) 2031 1440 1831 Oral 120 1020 290 Output: Pigtail Drain 925 500 Urine 250 295 Ileostomy 550 Other: # Bowel Movements 0 1 Estimated Stool Amount Small Gen:awake, no distress HEENT:no thrush Heart:RRR no murmur Lungs:CTA BL Abd:+BS NTND soft; ostomy Skin: no rash Laboratory Results - last 24 hr 05/20/17 05/20/17 07:00 07:00 WBC 16.7 H RBC 3.52 L Hgb 10.8 L Hct 33 L MCV 93 MCH 31 MCHC 33 RDW 14 Plt Count 234 MPV 7.8 Neut % (Auto) 87.5 H Lymph % (Auto) 6.4 L Moore % (Auto) 4.7 Eos % (Auto) 1.1 Baso % (Auto) 0.3 Absolute Neuts (auto) 14.6 H Absolute Lymphs (auto) 1.1 Absolute Monos (auto) 0.8 Absolute Eos (auto) 0.2 Absolute Basos (auto) 0 Absolute Nucleated RBC 0 Nucleated RBC % 0 Sodium 141 Potassium 3.0 L Chloride 110 Carbon Dioxide 23 Anion Gap 8 BUN 14 Creatinine 1.54 H Est GFR ( Amer) 42.5 Est GFR (Non-Af Amer) 33.0 BUN/Creatinine Ratio 9.1 Glucose 98 Calcium 7.5 L Microbiology 05/17/17 16:58 Aerobic Blood Culture - Preliminary Blood Venous No Growth Day 2 Anaerobic Blood Culture - Preliminary No Growth Day 2 05/17/17 16:10 Aerobic Blood Culture - Preliminary Blood Venous No Growth Day 2 Anaerobic Blood Culture - Preliminary No Growth Day 2 05/17/17 16:10 Urine Culture - Final Urine Assessment: 1. leukocytosis, improving, suspect due to otitis media 2. chronic T spine compression fracture 3. Crohn's disease s/p colectomy/ileostomy 4. COPD with chronic hypoxemic respiratory failure 5. Chronic kidney disease Plan: 1. augmentin for 5 more days (to complete 7 day course)
[2017-05-20] MEDS ORDERED: Levalbuterol 0.63MG/3ML NEB* UNIT OF USE INH PRN (15:49)
[2017-05-20] MEDS ORDERED: Zolpidem TAB* 5 MG PO PRN (15:52)
[2017-05-20] MEDS: Amoxicillin/Clavulanate TAB* 500 MG PO SCH (16:00)
[2017-05-20] MEDS: NS 0.9% w/ 20 Meq KCL 1000 ML* 1,000 ML IV SCH (16:09)
[2017-05-20] MEDS: oxyCODONE TAB* 5 MG TAB PO PRN (16:34)
[2017-05-20] MEDS: Benzocaine/Menthol LOZ* 1 LOZENGE PO PRN (16:34)
[2017-05-20] MEDS: PARoxetine HCL TAB* 20 MG PO SCH (17:59)
[2017-05-20] MEDS: Warfarin TAB(*) 2 MG PO SCH (17:59)
[2017-05-20] MEDS: Opium Tincture* 6 MG/0.6 ML ORAL.LIQ SYRINGE PO PRN (18:12)
[2017-05-20] MEDS: LORazepam TAB(*) 0.5 MG PO SCH (21:38)
--- NOTE | 2017-05-20 22:44 | PN ---
Subjective Date of Service: 05/20/17 Interval History: . Saw patient at bedside Feeling quite ill: nauseous, sore throat, cough, shot of breath; anxious, headache, etc. She feels the augmentin is making her nauseous; I agreed to stop it. I also agreed to: - Xopenex Q4 prn SOB - increase and make standing her ativan. - Stop Augmentin, and add back piperacillin in case there is a bacterial component to her presentation. - Added morphine for pain - Ambien for insomnia at night - Compazine for nausea (Q6 prn) in addition to Zofran. Overall, despite her many symptoms, we discussed how she seems to be improving: WBC steadily decreasing Laboratory Tests 05/17/17 05/18/17 05/20/17 14:20 05:57 07:00 WBC 32.4 H 27.0 H 16.7 H Creatinine Normalized: Laboratory Tests 05/18/17 05/20/17 05:51 07:00 Creatinine 2.13 H 1.54 H We DID NOT discuss her enlarging mediastinal mass given how upset she was with her current symptoms. It is likely unrelated to her current presentation, and htat will be discussed DURING this admission, but not today. Family History: Unchanged from Admission Social History: Unchanged from Admission Past Medical History: Unchanged from Admission Objective Active Medications: . Acetaminophen (Tylenol Tab*) 650 mg PO Q6H PRN PRN Reason: pain/fever Last Admin: 05/20/17 16:34 Dose: 650 mg Aspirin (Aspirin Ec Low Dose*) 81 mg PO DAILY [facility] Last Admin: 05/20/17 09:29 Dose: 81 mg Calcitriol (Rocaltrol Cap*) 0.25 mcg PO QAM [facility] Last Admin: 05/20/17 09:30 Dose: 0.25 mcg Cinacalcet (Sensipar Tab*) 30 mg PO QAM [facility] Last Admin: 05/20/17 09:30 Dose: 30 mg Cyanocobalamin (Vitamin B12 Inj *) 1,000 mcg IM WEEKLY [facility] Guaifenesin (Mucinex*) 600 mg PO BID PRN PRN Reason: CONGESTION Last Admin: 05/20/17 16:35 Dose: 600 mg Potassium Chloride/Sodium Chloride (Ns 0.9% W/ 20 Meq Kcl 1000 Ml*) 1,000 mls @ 100 mls/hr IV PER RATE [facility] Last Admin: 05/20/17 16:09 Dose: 100 mls/hr Ipratropium [place] (Atrovent 0.5 Mg Neb.Vesna*) 0.5 mg INH [id number] AWAKE [facility] Last Admin: 05/20/17 20:39 Dose: 0.5 mg Levalbuterol HCl (Xopenex 0.63mg/3ml Neb*) 0.63 mg INH Q4H PRN PRN Reason: SOB/WHEEZING Lorazepam (Ativan Tab(*)) 1 mg PO BID [facility] Last Admin: 05/20/17 21:38 Dose: 1 mg Morphine Sulfate (Morphine Inj (Syringe)*) 2 mg IV Q2H PRN PRN Reason: PAIN Last Admin: 05/20/17 21:38 Dose: 2 mg Ondansetron HCl (Zofran Inj*) 4 mg IV Q6H PRN PRN Reason: NAUSEA Last Admin: 05/20/17 06:28 Dose: 4 mg Opium Tincture (Opium Tincture*) 6 mg PO Q4H PRN PRN Reason: diarrhea Last Admin: 05/20/17 18:12 Dose: 6 mg Oxycodone HCl (Roxycodone Tab*) 5 mg PO Q4HR PRN PRN Reason: DISCOMFORT Last Admin: 05/20/17 16:34 Dose: 5 mg Paroxetine HCl (Paxil Tab*) 30 mg PO QPM [facility] Last Admin: 05/20/17 17:59 Dose: 30 mg Polyvinyl Alcohol (Polyvinyl Alcohol 1.4% Opth*) 1 drop BOTH EYES Q2H PRN PRN Reason: DRY EYE Last Admin: 05/18/17 19:51 Dose: 1 drop Prednisone (Deltasone Tab*) 10 mg PO DAILY [facility] Last Admin: 05/20/17 08:02 Dose: 10 mg Prochlorperazine Edisylate (Compazine Inj*) 10 mg IV Q6H PRN PRN Reason: NAUSEA Last Admin: 05/20/17 14:16 Dose: 10 mg Throat Lozenges (Chloraseptic [place]*) 1 bradford PO Q6H PRN PRN Reason: SORE THROAT Last Admin: 05/20/17 16:34 Dose: 1 bradford Tiotropium [place] (Spiriva Cap.Inh*) 1 cap INH QAM [facility] Last Admin: 05/20/17 08:14 Dose: 1 cap Warfarin Sodium (Coumadin Tab(*)) 2 mg PO QPM [facility] PRN Reason: Protocol Last Admin: 05/20/17 17:59 Dose: 2 mg Zolpidem Tartrate (Ambien Tab*) 5 mg PO BEDTIME PRN PRN Reason: INSOMNIA Last Admin: 05/20/17 21:38 Dose: 5 mg . Vital Signs - 8 hr 05/20/17 05/20/17 05/20/17 14:40 16:01 16:34 Temperature 99.2 F Pulse Rate 65 Respiratory 20 20 22 Rate Blood Pressure 116/47 (mmHg) O2 Sat by Pulse 99 Oximetry 05/20/17 05/20/17 05/20/17 18:12 20:41 21:38 Temperature Pulse Rate 75 Respiratory 18 16 18 Rate Blood Pressure (mmHg) O2 Sat by Pulse 99 Oximetry Oxygen Devices in Use Now: Nasal Cannula Appearance: sleeping during my interview. awakens with cough, but falls asleep. Eyes: No Scleral Icterus Ears/Nose/Mouth/Throat: Clear Oropharnyx Respiratory: Symmetrical Chest Expansion and Respiratory Effort Cardiovascular: NL Sounds; No Murmurs; No JVD Abdominal: NL Sounds; No Tenderness; No Distention, - - ostomy Lymphatic: No Cervical Adenopathy Extremities: No Edema Skin: No Rash or Ulcers Neurological: Alert and Oriented x 3 Lines/Tubes/Other Access: Clean, Dry and Intact Peripheral IV Nutrition: Taking PO's Result Diagrams: 05/20/17 07:00 05/20/17 07:00 Additional Lab and Data: . Microbiology and Other Data: Microbiology 05/17/17 18:12 Influenza Types A,B Antigen (ROSALBA) - Final Nasal Specimen received for Influenza A/B Molecular testing Assess/Plan/Problems-Billing . Assessment: 71 year old woman with PMH of Crohn's disease (s/p ileostom), s/p radiation for lung cancer, COPD, and PE/DVT (on coumadin), now admitted for nausea, vomiting and worsening back pain. IN REVIEW OF ALL DATA SO FAR IN THIS ADMISSION, I THINK PATIENT WAS NOT SEPTIC, ALTHOUGH AT SEVERAL POINTS THERE WAS SUGGESTION OF POSSIBLE OR SUSPECTED SEPSIS. DESPITE WHAT WAS WRITTEN A POSSIBILITY, I DO NOT BELIEVE SHE WAS SEPTIC DURING THIS ADMISSION. . - Patient Problems (1) Acute on chronic renal failure Current Visit: No Status: Acute Priority: High Onset Date: 01/10/14 Code (s): N17.9 - ACUTE KIDNEY FAILURE, UNSPECIFIED; N18.9 - CHRONIC KIDNEY DISEASE, UNSPECIFIED SNOMED Code(s): 071912646 Comment: - Cr elevated at presentation. - Baseline, in Jan 2017, was 1.49. - 05/20 --> back to baseline at ~1.5. (2) Anxiety Current Visit: No Status: Acute Code(s): F41.9 - ANXIETY DISORDER, UNSPECIFIED SNOMED Code(s): 64537568 Comment: - Increase ativan to 1 mg PO BID (3) Pharyngitis Current Visit: Yes Status: Acute Priority: High Code(s): J02.9 - ACUTE PHARYNGITIS, UNSPECIFIED Comment: - bacterial causes would be covered with piperacillin ==> changed to Augmentin by ID - patient wants to go back to Piperacillin because she believes Augmentin made her nauseous. - Lozenges ordered / IVF ongoing (4) Otitis media Current Visit: Yes Status: Acute Priority: High Code(s): H66.90 - OTITIS MEDIA, UNSPECIFIED, UNSPECIFIED EAR Comment: - likely bacterial - augmentin ordered ==> piperacillin/tazo will cover as well. (5) Tracheitis Current Visit: Yes Status: Acute Priority: High Code(s): J04.10 - ACUTE TRACHEITIS WITHOUT OBSTRUCTION Comment: - perhaps the manifestation of a larger viral infection? (6) Bronchitis Current Visit: Yes Status: Acute Priority: High Code(s): J40 - BRONCHITIS , NOT SPECIFIED ACUTE OR CHRONIC Comment: - perhaps the manifestation of a larger viral infection?
[2017-05-20] MEDS ORDERED: Piperacillin/Tazobac ADVAN(*) 3.375 GM in NS 0.9% 100 ML* 100 ML IVPB ONE (22:50)
[2017-05-20] MEDS ORDERED: Zosyn per Pharmacy* NOTE FOLLOW UP SCH (23:00)
[2017-05-21] MEDS ORDERED: PIPERACILLIN IVPB ONE ×2 (00:30)
[2017-05-21] MEDS ORDERED: TAZOBACTAM IVPB ONE ×2 (00:30)
[2017-05-21] MEDS: Ipratropium 0.5MG/2.5ML NEB* 0.5 MG/2.5 ML NEB.SOLN INH SCH ×4 (01:11→19:09)
[2017-05-21] MEDS: oxyCODONE TAB* 5 MG TAB PO PRN (01:26)
[2017-05-21] MEDS: Acetaminophen TAB* 325 MG PO PRN ×2 (01:27→22:40)
[2017-05-21] MEDS: Benzocaine/Menthol LOZ* 1 LOZENGE PO PRN (01:27)
[2017-05-21] MEDS: NS 0.9% w/ 20 Meq KCL 1000 ML* 1,000 ML IV SCH (03:43)
[2017-05-21] MEDS ORDERED: Piperacillin/Tazobactam 13.5 GM IV 24 hour continuous infusion IVPB SCH ×2 (05:30)
[2017-05-21] MEDS: Morphine INJ* 2 MG/ML 1 ML CARPUJECT IV PRN ×3 (06:16→22:36)
[2017-05-21] MEDS: Tiotropium CAP.INH* CAP.INH/18 MCG (USE ORDER SET !) INH SCH (07:27)
[2017-05-21] MEDS ORDERED: Furosemide IV* 10 MG/ML VIAL (40 MG) IV ONE (08:27)
[2017-05-21] MEDS ORDERED: predniSONE TAB* 20 MG PO SCH (08:52)
[2017-05-21 08:55] LABS: EGFR Non-African American 30.3 (>60)
--- NOTE | 2017-05-21 09:27 | PN ---
Subjective Date of Service: 05/21/17 Interval History: SOB. No pain, liitle cough Family History: Unchanged from Admission Social History: Unchanged from Admission Past Medical History: Unchanged from Admission Objective Active Medications: Acetaminophen (Tylenol Tab*) 650 mg PO Q6H PRN PRN Reason: pain/fever Last Admin: 05/21/17 01:27 Dose: 650 mg Aspirin (Aspirin Ec Low Dose*) 81 mg PO DAILY [facility] Last Admin: 05/20/17 09:29 Dose: 81 mg Calcitriol (Rocaltrol Cap*) 0.25 mcg PO QAM [facility] Last Admin: 05/20/17 09:30 Dose: 0.25 mcg Cinacalcet (Sensipar Tab*) 30 mg PO QAM [facility] Last Admin: 05/20/17 09:30 Dose: 30 mg Cyanocobalamin (Vitamin B12 Inj *) 1,000 mcg IM WEEKLY [facility] Guaifenesin (Mucinex*) 600 mg PO BID PRN PRN Reason: CONGESTION Last Admin: 05/20/17 16:35 Dose: 600 mg Piperacillin Sod/Tazobactam (Sod 13.5 gm/ Sodium Chloride) 500 mls @ 20.833 mls /hr IVPB Q24H [facility] Last Admin: 05/21/17 06:16 Dose: 20.833 mls/hr Ipratropium [place] (Atrovent 0.5 Mg Neb.Vesna*) 0.5 mg INH [id number] AWAKE [facility] Last Admin: 05/21/17 07:27 Dose: 0.5 mg Levalbuterol HCl (Xopenex 0.63mg/3ml Neb*) 0.63 mg INH Q4H PRN PRN Reason: SOB/WHEEZING Last Admin: 05/21/17 08:23 Dose: 0.63 mg Lorazepam (Ativan Tab(*)) 1 mg PO BID [facility] Last Admin: 05/20/17 21:38 Dose: 1 mg Morphine Sulfate (Morphine Inj (Syringe)*) 2 mg IV Q2H PRN PRN Reason: PAIN Last Admin: 05/21/17 08:17 Dose: 2 mg Ondansetron HCl (Zofran Inj*) 4 mg IV Q6H PRN PRN Reason: NAUSEA Last Admin: 05/20/17 06:28 Dose: 4 mg Opium Tincture (Opium Tincture*) 6 mg PO Q4H PRN PRN Reason: diarrhea Last Admin: 05/20/17 18:12 Dose: 6 mg Oxycodone HCl (Roxycodone Tab*) 5 mg PO Q4HR PRN PRN Reason: DISCOMFORT Last Admin: 05/21/17 01:26 Dose: 5 mg Paroxetine HCl (Paxil Tab*) 30 mg PO QPM [facility] Last Admin: 05/20/17 17:59 Dose: 30 mg Pharmacy Consult (Zosyn Per Pharmacy*) 1 note FOLLOW UP .ZOSYN PER PHARMACY [facility] Polyvinyl Alcohol (Polyvinyl Alcohol 1.4% Opth*) 1 drop BOTH EYES Q2H PRN PRN Reason: DRY EYE Last Admin: 05/18/17 19:51 Dose: 1 drop Potassium Chloride (Klor Con Er Tab*) 20 meq PO Q2H [facility] Stop: 05/21/17 16:30 Prednisone (Deltasone Tab*) 60 mg PO DAILY [facility] Prochlorperazine Edisylate (Compazine Inj*) 10 mg IV Q6H PRN PRN Reason: NAUSEA Last Admin: 05/20/17 14:16 Dose: 10 mg Throat Lozenges (Chloraseptic [place]*) 1 bradford PO Q6H PRN PRN Reason: SORE THROAT Last Admin: 05/21/17 01:27 Dose: 1 bradford Tiotropium [place] (Spiriva Cap.Inh*) 1 cap INH QAM [facility] Last Admin: 05/21/17 07:27 Dose: 1 cap Warfarin Sodium (Coumadin Tab(*)) 2 mg PO QPM [facility] PRN Reason: Protocol Last Admin: 05/20/17 17:59 Dose: 2 mg Zolpidem Tartrate (Ambien Tab*) 5 mg PO BEDTIME PRN PRN Reason: INSOMNIA Last Admin: 05/20/17 21:38 Dose: 5 mg Vital Signs - 8 hr 05/21/17 05/21/17 05/21/17 01:26 04:24 06:15 Temperature 98.4 F Pulse Rate 54 Respiratory 18 16 20 Rate Blood Pressure 117/47 (mmHg) O2 Sat by Pulse 98 Oximetry 05/21/17 05/21/17 05/21/17 06:16 07:31 08:17 Temperature Pulse Rate 58 Respiratory 20 16 42 Rate Blood Pressure (mmHg) O2 Sat by Pulse 98 Oximetry 05/21/17 05/21/17 08:27 08:35 Temperature 98.3 F Pulse Rate 102 93 Respiratory 40 32 Rate Blood Pressure 139/64 (mmHg) O2 Sat by Pulse 89 94 Oximetry Oxygen Devices in Use Now: Nasal Cannula Appearance: Sitting on the edge of her bed, tachypneic. Alert. Looks fatigued. Eyes: No Scleral Icterus Ears/Nose/Mouth/Throat: Clear Oropharnyx, Mucous Membranes Moist Neck: NL Appearance and Movements; NL JVP, No Thyroid Enlargement, Masses Respiratory: Symmetrical Chest Expansion and Respiratory Effort, Clear to Percussion, - - mild to mod wheezing R > L, diffuse rhonchi Extremities: No Edema, No Clubbing, Cyanosis, - Skin: No Rash or Ulcers, No Nodules or Sclerosis, - Neurological: Alert and Oriented x 3, NL Sensation Result Diagrams: 05/20/17 07:00 05/21/17 08:02 Additional Lab and Data: . Microbiology and Other Data: Microbiology 05/17/17 18:12 Influenza Types A,B Antigen (ROSALBA) - Final Nasal Specimen received for Influenza A/B Molecular testing Assess/Plan/Problems-Billing . Assessment: 71 year old woman with PMH of Crohn's disease (s/p ileostom), s/p radiation for lung cancer, COPD, and PE/DVT (on coumadin), now admitted for nausea, vomiting and worsening back pain. IN REVIEW OF ALL DATA SO FAR IN THIS ADMISSION, I THINK PATIENT WAS NOT SEPTIC, ALTHOUGH AT SEVERAL POINTS THERE WAS SUGGESTION OF POSSIBLE OR SUSPECTED SEPSIS. DESPITE WHAT WAS WRITTEN A POSSIBILITY, I DO NOT BELIEVE SHE WAS SEPTIC DURING THIS ADMISSION. . - Patient Problems (1) Severe sepsis Current Visit: Yes Status: Acute Code(s): A41.9 - SEPSIS, UNSPECIFIED ORGANISM; R65.20 - SEVERE SEPSIS WITHOUT SEPTIC SHOCK SNOMED Code(s): 31132640 Comment: Acidosis present. ABG's and lactic acid pending. Transfer to ICU. Discussed with Dr. Enrique. (2) COPD exacerbation Current Visit: No Status: Acute Priority: High Code(s): J44.1 - CHRONIC OBSTRUCTIVE PULMONARY DISEASE W (ACUTE) EXACERBATION SNOMED Code(s): 096625180665206 Comment: Continue pip/luciana. Pt states she last smoked 01/17/17. Prednisone 60 mg start 05/21. Pt states she had trouble with 7 mg prednisone, needs very slow taper. (3) History of pulmonary embolism Current Visit: No Status: Chronic Priority: Medium Code(s): Z86.711 - PERSONAL HISTORY OF PULMONARY EMBOLISM SNOMED Code(s): 226128847 Comment: Continue warfarin. INR 05/21 pending. (4) CKD (chronic kidney disease) stage 3, GFR 30-59 ml/min Current Visit: No Status: Chronic Code(s): N18.3 - CHRONIC KIDNEY DISEASE, STAGE 3 (MODERATE) SNOMED Code(s): 378710356 Comment: Est GFR 30.3 05/21. Furosemide 40 mg IV ordered 05/21. IV fluids stopped due to large positive fluid balance and SOB.
[2017-05-21 10:12] LABS: ABS Basophils 0.1 10^3/ul (0-0.2); ABS Eosinophils 0.3 10^3/ul (0-0.6); ABS Lymphocytes 0.9 10^3/ul (1.0-4.8); ABS Neutrophils 8.4 10^3/ul (1.5-7.7); ABS Nucleated RBC 0 10^3/ul; Eosinophil % 2.4 % (0-6); Hematocrit 34 % (35-47); Hemoglobin 11.2 g/dl (12.0-16.0); Lymphocyte % 8.6 % (25-47); Mean Corpuscular HGB Conc 33 g/dl (31-36); Mean Corpuscular Hemoglobin 31 pg (27-31); Mean Corpuscular Volume 93 fL (80-97); Mean Platelet Volume 7.8 um3 (7.4-10.4); Nucleated Red Blood Cells % 0.1; Platelet Count 249 10^3/ul (150-450); Red Blood Count 3.68 10^6/ul (4.0-5.4); Red Cell Distribution Width 14 % (10.5-15); White Blood Count 10.6 10^3/ul (3.5-10.8)
[2017-05-21 10:23] LABS: INR 4.25 (0.77-1.02)
[2017-05-21] MEDS: Calcitriol CAP* 0.25 MCG PO SCH (10:41)
[2017-05-21] MEDS: Potassium Chlor TAB* 10 MEQ TAB.ER PO SCH ×4 (10:41→17:05)
[2017-05-21] MEDS: LORazepam TAB(*) 0.5 MG PO SCH ×2 (10:41→20:32)
[2017-05-21] MEDS: Cinacalcet TAB* 30 MG PO SCH (10:41)
[2017-05-21] MEDS: Aspirin EC TAB* 81 MG TAB.EC PO SCH (10:42)
[2017-05-21] MEDS ORDERED: Amoxicillin/Clavulanate TAB* 500 MG PO ONE (14:52)
--- NOTE | 2017-05-21 15:03 | PN ---
Date of Service: 05/21/17 Critical Care Services: 71 y/o femal with multiple medical problems, admitted on 05/17 for presumed sepsis (possible source is pharyngitis/otitis) - sent to ICU today because of respiratory distress (presumed due to fluid overload) and metabolic acidosis of unknown etiology. Patient was given IV furosemide just prior to ICU transfer, and on admission to ICU was breathing comfortably. Vital Signs: Temp Pulse Resp BP SpO2 FiO2 100.0 F 74 16 114/64 97 Physical Exam: Gen:Alert and oriented. Breathing comfortably. Lungs: No wheezing or crackles. Diminished BS at right base. Cardiac: Reg rhythm Extremities: No cyanosis. 2+edema of both lower extremities. Fluid Balance (Past 24 Hours): 05/21/17 06:59 Intake Total 4106 Output Total 2195 Balance +1911 Intake: IV Fluids 3116 NS (0.9%) 2241 NS (0.9%) 20 meq KCL 875 IVPB ABX - PIPERACILLIN NS (0.9%) Oral 990 Output: Pigtail Drain 500 Urine 745 Mcgill Colostomy 100 Ileostomy 850 Other: Estimated Void Small # Bowel Movements 0 Estimated Stool Amount Medium # Voids 0 Labs: 05/21/17 05/21/17 05/21/17 08:02 09:52 09:52 WBC 10.6 RBC 3.68 L Hgb 11.2 L Hct 34 L MCV 93 MCH 31 MCHC 33 RDW 14 Plt Count 249 INR (Anticoag Therapy) 4.25 Sodium 140 Potassium TNP Chloride 112 Carbon Dioxide 14 Anion Gap 14 BUN 12 Creatinine 1.66 H Est GFR ( Amer) 38.9 Est GFR (Non-Af Amer) 30.3 BUN/Creatinine Ratio 7.2 L Glucose 98 Lactic Acid 2.0 Calcium 6.7 Magnesium 1.4 Studies: CXR: No change from CXR on admission Nutrition: Oral diet Impression: 1. Episode of SOB earlier has resolved. No evidence for pulmonary congestion at the present time. 2. Metabolic acidosis most likely from saline infusion. 3. Is overanticoagulated with coumadin. Plan: 1. Hold coumadin and monitor INR 2. D/C IV fluid. Diurese if necessary. 3. Follow serum HCO3 and anion gap Critical Care Time: 40 minutes
--- NOTE | 2017-05-21 15:50 | RAD ---
Indication: Mild shortness of breath. History of COPD. Sepsis. Question CHF. Comparison: April 19, 2017 CT abdomen and May 17, 2017 chest radiograph. March 21, 2017 CT. Technique: Upright AP 1513 hours Report: RIGHT upper lobe mass containing 2 surgical clips with extension to the suprahilar region without significant change. Bilateral epicardial fat pads noted. No compelling pleural effusions. Negative for pneumothorax. Upper normal heart size. Unremarkable central pulmonary vasculature. IMPRESSION: 1. No compelling evidence for CHF. 2. RIGHT upper lobe mass with extension to the hilum/mediastinum without significant interval change. No new pulmonary opacity evident. 3. No compelling joint effusions. Negative for pneumothorax.
[2017-05-21] MEDS: PARoxetine HCL TAB* 20 MG PO SCH (18:43)
[2017-05-21 19:17] LABS: EGFR Non-African American 26.6 (>60)
[2017-05-21] MEDS ORDERED: Amoxicillin/Clavulanate TAB* 250 MG PO SCH (21:00)
[2017-05-22] MEDS: Morphine INJ* 2 MG/ML 1 ML CARPUJECT IV PRN ×3 (00:29→20:32)
[2017-05-22] MEDS: Ipratropium 0.5MG/2.5ML NEB* 0.5 MG/2.5 ML NEB.SOLN INH SCH ×4 (00:52→19:21)
[2017-05-22] MEDS: Opium Tincture* 6 MG/0.6 ML ORAL.LIQ SYRINGE PO PRN ×3 (01:04→20:33)
[2017-05-22] MEDS ORDERED: LORazepam TAB(*) 0.5 MG PO ONE (04:03)
[2017-05-22 07:00] LABS: Hematocrit 35 % (35-47); Hemoglobin 11.9 g/dl (12.0-16.0); Mean Corpuscular HGB Conc 34 g/dl (31-36); Mean Corpuscular Hemoglobin 31 pg (27-31); Mean Corpuscular Volume 93 fL (80-97); Platelet Count 284 10^3/ul (150-450); Red Blood Count 3.81 10^6/ul (4.0-5.4); Red Cell Distribution Width 14 % (10.5-15); White Blood Count 10.2 10^3/ul (3.5-10.8)
[2017-05-22 07:08] LABS: EGFR Non-African American 23.7 (>60)
[2017-05-22] MEDS: Tiotropium CAP.INH* CAP.INH/18 MCG (USE ORDER SET !) INH SCH (08:03)
[2017-05-22] MEDS ORDERED: NS 0.9% 1000 ML* 500 ML IV ONE (08:12)
--- NOTE | 2017-05-22 08:15 | PN ---
Subjective Date of Service: 05/22/17 Interval History: C/O IBARRA, panics when whe moves and gets SOB. No cough. Appetite OK. No new c/ o. Family History: Unchanged from Admission Social History: Unchanged from Admission Past Medical History: Unchanged from Admission Objective Active Medications: Acetaminophen (Tylenol Tab*) 650 mg PO Q6H PRN PRN Reason: pain/fever Last Admin: 05/21/17 22:40 Dose: 650 mg Amoxicillin/Clavulanate Potassium (Augmentin Tab*) 250 mg PO TID [facility] Last Admin: 05/21/17 20:32 Dose: 250 mg Aspirin (Aspirin Ec Low Dose*) 81 mg PO DAILY [facility] Last Admin: 05/21/17 10:42 Dose: 81 mg Calcitriol (Rocaltrol Cap*) 0.25 mcg PO QAM [facility] Last Admin: 05/21/17 10:41 Dose: 0.25 mcg Cinacalcet (Sensipar Tab*) 30 mg PO QAM [facility] Last Admin: 05/21/17 10:41 Dose: 30 mg Cyanocobalamin (Vitamin B12 Inj *) 1,000 mcg IM WEEKLY [facility] Guaifenesin (Mucinex*) 600 mg PO BID PRN PRN Reason: CONGESTION Last Admin: 05/20/17 16:35 Dose: 600 mg Ipratropium Jennings (Atrovent 0.5 Mg Neb.Vesna*) 0.5 mg INH RT.[id number] AWAKE [facility] Last Admin: 05/22/17 08:03 Dose: 0.5 mg Levalbuterol HCl (Xopenex 0.63mg/3ml Neb*) 0.63 mg INH Q4H PRN PRN Reason: SOB/WHEEZING Last Admin: 05/21/17 08:23 Dose: 0.63 mg Lorazepam (Ativan Tab(*)) 1 mg PO BID [facility] Last Admin: 05/21/17 20:32 Dose: 1 mg Morphine Sulfate (Morphine Inj (Syringe)*) 2 mg IV Q2H PRN PRN Reason: PAIN Last Admin: 05/22/17 03:50 Dose: 2 mg Ondansetron HCl (Zofran Inj*) 4 mg IV Q6H PRN PRN Reason: NAUSEA Last Admin: 05/20/17 06:28 Dose: 4 mg Opium Tincture (Opium Tincture*) 6 mg PO Q4H PRN PRN Reason: diarrhea Last Admin: 05/22/17 01:04 Dose: 6 mg Oxycodone HCl (Roxycodone Tab*) 5 mg PO Q4HR PRN PRN Reason: DISCOMFORT Last Admin: 05/21/17 01:26 Dose: 5 mg Paroxetine HCl (Paxil Tab*) 30 mg PO QPM [facility] Last Admin: 05/21/17 18:43 Dose: 30 mg Pharmacy Profile Note (Coumadin Daily Reminder*) 1 note FOLLOW UP 1700 [facility] Last Admin: 05/21/17 18:27 Dose: 1 note Polyvinyl Alcohol (Polyvinyl Alcohol 1.4% Opth*) 1 drop BOTH EYES Q2H PRN PRN Reason: DRY EYE Last Admin: 05/18/17 19:51 Dose: 1 drop Prednisone (Deltasone Tab*) 50 mg PO DAILY [facility] Prochlorperazine Edisylate (Compazine Inj*) 10 mg IV Q6H PRN PRN Reason: NAUSEA Last Admin: 05/20/17 14:16 Dose: 10 mg Throat Lozenges (Chloraseptic Marine*) 1 marine PO Q6H PRN PRN Reason: SORE THROAT Last Admin: 05/21/17 01:27 Dose: 1 marine Tiotropium Jennings (Spiriva Cap.Inh*) 1 cap INH QAM [facility] Last Admin: 05/22/17 08:03 Dose: 1 cap Vital Signs - 8 hr 05/22/17 05/22/17 05/22/17 00:17 00:29 00:55 Temperature 98.7 F Pulse Rate 73 71 Respiratory 18 18 Rate Blood Pressure (mmHg) O2 Sat by Pulse 97 96 Oximetry 05/22/17 05/22/17 05/22/17 01:04 02:30 03:11 Temperature 98.2 F Pulse Rate 76 Respiratory 18 18 16 Rate Blood Pressure 122/58 (mmHg) O2 Sat by Pulse 100 Oximetry 05/22/17 05/22/17 05/22/17 03:41 03:50 04:55 Temperature Pulse Rate Respiratory 18 18 18 Rate Blood Pressure (mmHg) O2 Sat by Pulse Oximetry 05/22/17 05/22/17 05:03 07:37 Temperature 98.1 F Pulse Rate 64 Respiratory 16 Rate Blood Pressure 108/52 (mmHg) O2 Sat by Pulse 100 Oximetry Oxygen Devices in Use Now: Nasal Cannula Appearance: Alert, partly up in bed. In fair spirits, somewhat anxious, sl tachypneic, otherwise looks comfortable. Eyes: No Scleral Icterus Ears/Nose/Mouth/Throat: Clear Oropharnyx, Mucous Membranes Moist Neck: NL Appearance and Movements; NL JVP, No Thyroid Enlargement, Masses Respiratory: Symmetrical Chest Expansion and Respiratory Effort, Clear to Auscultation, Clear to Percussion, - - Much clearer than yesterday. Cardiovascular: NL Sounds; No Murmurs; No JVD, RRR, No Edema Extremities: No Edema, No Clubbing, Cyanosis, - Skin: No Rash or Ulcers, No Nodules or Sclerosis, - Neurological: Alert and Oriented x 3, NL Sensation Result Diagrams: 05/22/17 06:37 05/22/17 06:37 Additional Lab and Data: . Microbiology and Other Data: Microbiology 05/17/17 18:12 Influenza Types A,B Antigen (ROSALBA) - Final Nasal Specimen received for Influenza A/B Molecular testing Assess/Plan/Problems-Billing . Assessment: 71 year old woman with PMH of Crohn's disease (s/p ileostom), s/p radiation for lung cancer, COPD, and PE/DVT (on coumadin), now admitted for nausea, vomiting and worsening back pain. IN REVIEW OF ALL DATA SO FAR IN THIS ADMISSION, I THINK PATIENT WAS NOT SEPTIC, ALTHOUGH AT SEVERAL POINTS THERE WAS SUGGESTION OF POSSIBLE OR SUSPECTED SEPSIS. DESPITE WHAT WAS WRITTEN A POSSIBILITY, I DO NOT BELIEVE SHE WAS SEPTIC DURING THIS ADMISSION. . - Patient Problems (1) Severe sepsis Current Visit: Yes Status: Acute Code(s): A41.9 - SEPSIS, UNSPECIFIED ORGANISM; R65.20 - SEVERE SEPSIS WITHOUT SEPTIC SHOCK SNOMED Code(s): 35706368 Comment: No longer has severe sepsis as of 05/22. C02 up to 22, anion gap unchanged at 14, lacatic acid 2.5. Continue amox/clav as per Dr. Enrique. (2) COPD exacerbation Current Visit: No Status: Acute Priority: High Code(s): J44.1 - CHRONIC OBSTRUCTIVE PULMONARY DISEASE W (ACUTE) EXACERBATION SNOMED Code(s): 963201816553073 Comment: Continue amox/clav. Pt states she last smoked 01/17/17. Prednisone 30 mg 05/22. Pt states she had trouble with 7 mg prednisone, needs very slow taper. (3) History of pulmonary embolism Current Visit: No Status: Chronic Priority: Medium Code(s): Z86.711 - PERSONAL HISTORY OF PULMONARY EMBOLISM SNOMED Code(s): 684467693 Comment: Continue warfarin. INR 05/21 pending. (4) CKD (chronic kidney disease) stage 3, GFR 30-59 ml/min Current Visit: No Status: Chronic Code(s): N18.3 - CHRONIC KIDNEY DISEASE, STAGE 3 (MODERATE) SNOMED Code(s): 958366086 Comment: Est GFR 30.3 05/21. Furosemide 40 mg IV ordered 05/21. Large diuresis 05/21, will give 500 ml NSS 05/22 and repeat BMP 05/23. (5) Hypomagnesemia Current Visit: Yes Status: Acute Code(s): E83.42 - HYPOMAGNESEMIA SNOMED Code(s): 503162895 Comment: Mg++ 1.4 05/21 before IV fuorsemide. Mag oxide 8000 mg daily ordered.
[2017-05-22] MEDS ORDERED: predniSONE TAB* 10 MG PO SCH (09:00)
[2017-05-22] MEDS ORDERED: predniSONE TAB* 50 MG PO SCH (09:00)
[2017-05-22] MEDS: Calcitriol CAP* 0.25 MCG PO SCH (09:22)
[2017-05-22] MEDS: Cinacalcet TAB* 30 MG PO SCH (09:22)
[2017-05-22] MEDS: Amoxicillin/Clavulanate TAB* 500 MG PO SCH ×3 (09:22→20:30)
[2017-05-22] MEDS: LORazepam TAB(*) 0.5 MG PO SCH ×2 (09:23→20:31)
[2017-05-22] MEDS: Magnesium Oxide TAB* 400 MG PO SCH (09:23)
[2017-05-22] MEDS: Aspirin EC TAB* 81 MG TAB.EC PO SCH (09:24)
[2017-05-22] MEDS: PARoxetine HCL TAB* 20 MG PO SCH (17:45)
[2017-05-22] MEDS: Acetaminophen TAB* 325 MG PO PRN (20:30)
[2017-05-22] MEDS: Benzocaine/Menthol LOZ* 1 LOZENGE PO PRN (22:49)
[2017-05-23] MEDS: Opium Tincture* 6 MG/0.6 ML ORAL.LIQ SYRINGE PO PRN ×2 (00:31→10:48)
[2017-05-23] MEDS: Ipratropium 0.5MG/2.5ML NEB* 0.5 MG/2.5 ML NEB.SOLN INH SCH ×3 (00:43→12:33)
[2017-05-23] MEDS: oxyCODONE TAB* 5 MG TAB PO PRN (00:55)
[2017-05-23] MEDS: Morphine INJ* 2 MG/ML 1 ML CARPUJECT IV PRN (03:31)
[2017-05-23 06:48] LABS: Hematocrit 32 % (35-47); Hemoglobin 11.3 g/dl (12.0-16.0); Mean Corpuscular HGB Conc 35 g/dl (31-36); Mean Corpuscular Hemoglobin 32 pg (27-31); Mean Corpuscular Volume 92 fL (80-97); Platelet Count 322 10^3/ul (150-450); Red Blood Count 3.54 10^6/ul (4.0-5.4); Red Cell Distribution Width 14 % (10.5-15)
[2017-05-23 07:06] LABS: EGFR Non-African American 26.9 (>60)
[2017-05-23] MEDS: Tiotropium CAP.INH* CAP.INH/18 MCG (USE ORDER SET !) INH SCH (07:08)
[2017-05-23 07:30] LABS: INR 6.32 (0.77-1.02)
[2017-05-23 08:13] VITALS: BP 139/60
[2017-05-23 08:32] LABS: ABS Basophils 0 10^3/ul (0-0.2); ABS Eosinophils 0 10^3/ul (0-0.6); ABS Lymphocytes 1.2 10^3/ul (1.0-4.8); ABS Neutrophils 9.7 10^3/ul (1.5-7.7); ABS Nucleated RBC 0 10^3/ul; Eosinophil % 0.2 % (0-6); Lymphocyte % 10.1 % (25-47); Nucleated Red Blood Cells % 0
[2017-05-23] MEDS ORDERED: predniSONE TAB* 50 MG PO SCH (08:50)
--- NOTE | 2017-05-23 09:15 | PN ---
Progress Note - Progress Note Date of Service: 05/23/17 Note: Time spent on discharge 50 minutes.
[2017-05-23] MEDS ORDERED: predniSONE TAB* 20 MG PO SCH (10:37)
[2017-05-23] MEDS: Cinacalcet TAB* 30 MG PO SCH (10:44)
[2017-05-23] MEDS: Amoxicillin/Clavulanate TAB* 500 MG PO SCH (10:44)
[2017-05-23] MEDS: Calcitriol CAP* 0.25 MCG PO SCH (10:44)
[2017-05-23] MEDS: Magnesium Oxide TAB* 400 MG PO SCH (10:46)
[2017-05-23] MEDS: Aspirin EC TAB* 81 MG TAB.EC PO SCH (10:46)
[2017-05-23] MEDS: LORazepam TAB(*) 0.5 MG PO SCH (10:46)
--- NOTE | 2017-05-24 00:50 | DS ---
CC: Dr. France * DISCHARGE SUMMARY: DATE OF ADMISSION: DATE OF DISCHARGE: 05/23/17 HISTORY OF PRESENT ILLNESS: This 71-year-old woman presented complaining of back pain and nausea. She also complained of left ear pain and difficulty hearing. She has a chronic vertebral compression fracture. Her back pain was really not a big issue during this hospital stay. She did complain of ear pain , which finally resolved. She was given antibiotics in part for her presumed otitis and in part for COPD. She did have 1 episode where she got very short of breath and had a poor lung exam, this may have been due to a panic attack or to mucous plugging. She was in the ICU for only a few hours. She got 40 mg of furosemide IV. She diuresed quite a bit. Her creatinine went up. I gave her 500 mL of normal saline back. Her creatinine came back down to its baseline. On 05/23/17, her creatinine was 1.84, pretty much at baseline. The highest it was, was 2.05. She will not go home on any diuretic. She will continue on antibiotics for 5 more days as an outpatient. She was given steroids and this will be tapered. Her INR went up quite rapidly here. Her last dose of warfarin was 2 mg on 05/20. On the day of discharge, her INR was 6.32. I note that the patient has a home INR machine. She is very familiar with interpreting the values and administering her warfarin. I instructed her that she would likely not need any warfarin for several days and that if she wanted, she could wait till Friday to check her fingerstick. She is instructed to not take warfarin until her INR is under 3. On the day of discharge, I examined her ear. It was not red. There was no cerumen. Tympanic membrane was flat. DISCHARGE DIAGNOSES: 1. Chronic obstructive pulmonary disease exacerbation. 2. History of pulmonary embolism. 3. Left otitis. 4. Chronic kidney disease. 5. Hypomagnesemia. DISCHARGE MEDICATIONS: 1. Acetaminophen 650 mg every 6 hours p.r.n. 2. Amoxicillin clavulanate 500 mg b.i.d. for 5 days. 3. Magnesium oxide 400 mg b.i.d. 4. Tincture of opium 0.6 mL as prescribed. 5. Cinacalcet 30 mg daily. 6. Vitamin B12 1000 mcg IM weekly. 7. Fluoxetine 30 mg h.s. 8. Guaifenesin 600 mg b.i.d. p.r.n. 9. Calcitriol 0.25 mg daily. 10. Ipratropium 0.5 mg by nebulizer every 6 hours p.r.n. 11. Tiotropium 1 capsule daily. 12. Lorazepam 0.5 mg b.i.d. p.r.n. 13. Aspirin 81 mg daily. 14. Prednisone 10 mg, to taper from 3 to 0 over 3 days. Warfarin will be restarted when her INR is under 3. [id number]/[place] #: [id number] [facility]
== END 2017-05-23 12:50 | disposition home health service (06) | DRG 872 ==
LOC: ED 13:19 → MEDTELE 17:34 → ICU 05-21 09:13 → MED 05-22 00:22
PROVIDERS: ADMIT Internal Medicine; ATTEND Internal Medicine
DX: A41.9 Sepsis, unspecified organism (principal); J44.1 Chronic obstructive pulmonary disease with (acute) exacerbation; M48.54XA Collapsed vertebra, not elsewhere classified, thoracic region, initial encounter for fracture; C34.12 Malignant neoplasm of upper lobe, left bronchus or lung; N17.9 Acute kidney failure, unspecified; J96.11 Chronic respiratory failure with hypoxia; H66.92 Otitis media, unspecified, left ear; R65.20 Severe sepsis without septic shock; J02.9 Acute pharyngitis, unspecified; I12.9 Hypertensive chronic kidney disease with stage 1 through stage 4 chronic kidney disease, or unspecified chronic kidney disease; M81.0 Age-related osteoporosis without current pathological fracture; M41.86 Other forms of scoliosis, lumbar region; G62.9 Polyneuropathy, unspecified; G47.30 Sleep apnea, unspecified; H91.90 Unspecified hearing loss, unspecified ear; F41.9 Anxiety disorder, unspecified; F32.9 Major depressive disorder, single episode, unspecified; Z66 Do not resuscitate; N83.202 Unspecified ovarian cyst, left side; K43.5 Parastomal hernia without obstruction or gangrene; R11.0 Nausea; G47.00 Insomnia, unspecified; J40 Bronchitis, not specified as acute or chronic; N18.3 Chronic kidney disease, stage 3 (moderate); E83.42 Hypomagnesemia; T17.990A Other foreign object in respiratory tract, part unspecified in causing asphyxiation, initial encounter; X58.XXXA Exposure to other specified factors, initial encounter; G25.81 Restless legs syndrome; Z88.1 Allergy status to other antibiotic agents; Z88.7 Allergy status to serum and vaccine; Z88.8 Allergy status to other drugs, medicaments and biological substances; Z86.718 Personal history of other venous thrombosis and embolism; Z86.711 Personal history of pulmonary embolism; Z99.81 Dependence on supplemental oxygen; Z98.42 Cataract extraction status, left eye; Z98.41 Cataract extraction status, right eye; Z90.49 Acquired absence of other specified parts of digestive tract; Z86.14 Personal history of Methicillin resistant Staphylococcus aureus infection; Z88.4 Allergy status to anesthetic agent; Z93.2 Ileostomy status; Z72.89 Other problems related to lifestyle; Z82.49 Family history of ischemic heart disease and other diseases of the circulatory system; Z83.3 Family history of diabetes mellitus; Z87.891 Personal history of nicotine dependence; Z79.82 Long term (current) use of aspirin
CPT/HCPCS: 36415; 36600; 71045; 72146; 74176; 80048; 80053; 81003; 81015; 82803; 83605; 83690; 83735; 84484; 85025; 85027; 85610; 85730; 86140; 87040; 87086; 87502; 93005; 94640; 94760; 99284; A9270-GY; C1751; J0780; J1940; J2020; J2270; J2405; J2543; J3370; J7512

== ENCOUNTER 2017-06-16 09:03 | Inpatient (IN) | payer MEDICARE ==
[2017-06-16] MEDS ORDERED: NS 0.9% 1000 ML* 1,000 ML IV SCH (09:15)
[2017-06-16] MEDS ORDERED: Albuterol/Ipratropium NEB.SOL* Albuterol 2.5 MG/Ipratropium 0.5 MG 3 ML INH ONE (09:15)
[2017-06-16 10:07] LABS: Hematocrit 38 % (35-47); Hemoglobin 12.4 g/dl (12.0-16.0); Mean Corpuscular HGB Conc 33 g/dl (31-36); Mean Corpuscular Hemoglobin 31 pg (27-31); Mean Corpuscular Volume 94 fL (80-97); Mean Platelet Volume 7.8 um3 (7.4-10.4); Platelet Count 261 10^3/ul (150-450); Red Cell Distribution Width 15 % (10.5-15); White Blood Count 10.5 10^3/ul (3.5-10.8)
[2017-06-16 10:09] LABS: INR 0.96 (0.77-1.02)
[2017-06-16 10:21] LABS: EGFR Non-African American 25.4 (>60)
[2017-06-16 10:28] LABS: ABS Basophils 0.2 10^3/ul (0-0.2); ABS Eosinophils 0.6 10^3/ul (0-0.6); ABS Lymphocytes 1.3 10^3/ul (1.0-4.8); ABS Monocytes 0.8 10^3/ul (0-0.8); ABS Neutrophils 7.7 10^3/ul (1.5-7.7); ABS Nucleated RBC 0 10^3/ul; Nucleated Red Blood Cells % 0.1
[2017-06-16 10:36] LABS: Monocytes % 7 % (0-7)
--- NOTE | 2017-06-16 10:39 | RAD ---
INDICATION: Shortness of breath. COMPARISON: Comparison is made with a prior CT of the chest from March 21, 2017 and a prior chest x-ray study from May 21, 2017. TECHNIQUE: A portable view of the chest was obtained. FINDINGS: The heart is within normal limits in size. There is a masslike density which projects over the right upper lobe which appears smaller in size than on the prior study. The lungs are underinflated. There is a small infiltrate at the left lung base. No pleural effusion is seen. IMPRESSION: 1. SMALL LEFT BASILAR INFILTRATE. 2. MASSLIKE DENSITY IN THE RIGHT UPPER LOBE SMALLER THAN ON THE PRIOR STUDY.
[2017-06-16] MEDS ORDERED: Azithromycin IV(*) 500 MG in NS 0.9% 250 ML* 250 ML IVPB ONE (10:48)
[2017-06-16] MEDS ORDERED: cefTRIAXone(*) 1 GM in NS 0.9% 50 ML* 50 ML IVPB ONE (10:48)
--- NOTE | 2017-06-16 12:16 | ED ---
Makayla Zhao Thomas, scribed for Jarrett Chand MD on 06/16/17 at 0919 . Shortness of Breath - HPI Summary HPI Summary: The patient is a 71 year old female brought in by ambulance complaining of shortness of breath that began one week ago and worsened in the last couple of days. She called the ambulance this morning because she woke up and was short of breath. The patient also complains of nasal congestion and postnasal drip. The patient denies chest pain, abdominal pain, fevers, and cough. Past medical history includes COPD, lung cancer, pneumonia, and radiation therapy. Her last radiation was three months ago. - History of Current Complaint Chief Complaint: EDShortnessOfBreath Time Seen by Provider: 06/16/17 09:05 Hx Obtained From: Patient Onset/Duration: Lasting Weeks - 1, Still Present, Worse Since - last few days Timing: Constant Current Severity: Moderate Dyspnea At: Rest Aggrevating Factors: Nothing Associated Signs & Symptoms: Nasal Congestion - Allergy/Home Medications Allergies/Adverse Reactions: Allergies Allergy/AdvReac Type Severity Reaction Status Date / Time daptomycin Allergy See Comment Verified 05/17/17 13:46 doxycycline Allergy Vomiting Verified 05/17/17 13:46 epinephrine Allergy See Comment Verified 05/17/17 13:46 infliximab [From Remicade] Allergy Swelling Verified 05/17/17 13:46 levofloxacin [From Levaquin] Allergy Rash Verified 05/17/17 13:46 tetanus toxoid, adsorbed Allergy Swelling Verified 05/17/17 13:46 vancomycin Allergy Wheezing Verified 05/17/17 13:46 eggplant Allergy Mild Difficulty Uncoded 01/22/17 23:59 Breathing PMH/Surg Hx/FS Hx/Imm Hx Endocrine/Hematology History: Reports: Hx Anticoagulant Therapy - coumadin Denies: Hx Diabetes Cardiovascular History: Reports: Hx Angina, Hx Deep Vein Thrombosis, Hx Embolism - PE, Hx Hypotension, Hx Hypertension, Hx Syncope, 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 RUL CA. GI History: Reports: Hx Crohn's Disease, Hx Ileostomy, Other GI Disorders - Ileostomy placement History: Reports: Hx Acute Renal Failure, Hx Chronic Renal Failure, Other Problems/Disorders - Renal deficit per Dr Whittaker Denies: Hx Dialysis, Hx Renal Disease Musculoskeletal History: Reports: Hx Back Problems, Hx Osteoporosis, Hx Scoliosis - lumbar disc problems; scoliosis Sensory History: Reports: Hx Cataracts, Hx Contacts or Glasses, Hx Hearing Problem Denies: Hx Hearing Aid Opthamlomology History: Reports: Hx Cataracts, Hx Contacts or Glasses Neurological History: Reports: Hx Headaches, Hx Nerve Disease - neuropathy, 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 SEVERAL BOWEL RESECTIONS AND FISTULA, [facility] Hx Anesthesia Reactions: Yes - LOW BP - Immunization History Date of Tetanus Vaccine: utd Date of Influenza Vaccine: utd Infectious Disease History: No Infectious Disease History: Reports: Hx of Known/Suspected MRSA Denies: Traveled Outside the [place] in Last 30 Days - Family History Known Family History: Positive: Unknown - Parents very young., Other - Crohn's Disease - Social History Alcohol Use: Rare Alcohol Amount: 1 Q 2-3 MONTHS Hx Substance Use: No Substance Use Type: Reports: Other Substance Use Comment - Amount & Last Used: prescribed opium Hx Tobacco Use: Yes Smoking Status (MU): Former Smoker Type: Cigarettes Amount Used/How Often: 1-2 cigarettes per day Length of Time of Smoking/Using Tobacco: 53 years Have You Smoked in the Last Year: Yes Review of Systems Negative: Fever Positive: Nasal Discharge, Other - Postnasal drip Negative: Chest Pain Positive: Shortness Of Breath. Negative: Cough Negative: Abdominal Pain All Other Systems Reviewed And Are Negative: Yes Physical Exam - Summary Physical Exam Summary: General: mildly ill-appearing, no pain distress Skin: warm, color reflects adequate perfusion, dry Head: normal Eyes: EOMI, RUMA ENT: normal Neck: supple, nontender Respiratory: There are wheezes and rhonchi bilaterally. Cardiovascular: RRR Abdomen: soft, nontender Bowel: present Musculoskeletal: strength/ROM intact, trace pedal edema Neurological: normal, sensory/motor intact, A&O x3 Psychological: affect/mood appropriate Triage Information Reviewed: Yes Vital Signs On Initial Exam: Initial Vitals Temp Pulse Resp BP Pulse Ox 98.2 F 70 19 168/86 100 06/16/17 09:13 06/16/17 09:13 06/16/17 09:13 06/16/17 09:13 06/16/17 09:13 Vital Signs Reviewed: Yes Diagnostics - Vital Signs Vital Signs Temp Pulse Resp BP Pulse Ox 06/16/17 09:13 98.2 F 70 19 168/86 100 - Laboratory Lab Results: Lab Results 06/16/17 06/16/17 06/16/17 Range/Units 09:46 09:46 09:46 WBC (3.5-10.8) 10^3/ul RBC (4.0-5.4) 10^6/ul Hgb (12.0-16.0) g/dl Hct (35-47) % MCV (80-97) fL MCH (27-31) pg MCHC (31-36) g/dl RDW (10.5-15) % Plt Count (150-450) 10^3/ul MPV (7.4-10.4) um3 Neut % (Auto) Lymph % (Auto) [place] % (Auto) Eos % (Auto) Baso % (Auto) Absolute Neuts (auto) (1.5-7.7) 10^3/ul Absolute Lymphs (auto) (1.0-4.8) 10^3/ul Absolute Monos (auto) (0-0.8) 10^3/ul Absolute Eos (auto) (0-0.6) 10^3/ul Absolute Basos (auto) (0-0.2) 10^3/ul Absolute Nucleated RBC 10^3/ul Neutrophils % (38-83) % Lymphocytes % (25-47) % Reactive Lymphs % (0-6) % Monocytes % (0-7) % Eosinophils % (0-6) % Basophils % (0-2) % Nucleated RBC % Abs Neuts (Manual) (1.5-7.7) 10^3/ul Abs Lymphs (Manual) (1.0-4.8) 10^3/ul Abs Monocytes (Manual) (0-0.8) 10^3/ul Absolute Eos (Manual) (0-0.6) 10^3/ul Abs Basophils (Manual) (0-0.2) 10^3/ul Normal RBC Morphology (Normal) Hem Pathologist Commnt INR (Anticoag Therapy) 0.96 (0.77-1.02) APTT 29.3 (26.0-36.3) seconds D-Dimer, Quantitative 240 H (Less Than 230) ng/mL Sodium 142 (139-145) mmol/L Potassium 4.0 (3.5-5.0) mmol/L Chloride 102 (101-111) mmol/L Carbon Dioxide 33 H (22-32) mmol/L Anion Gap 7 (2-11) mmol/L BUN 31 H (6-24) mg/dL Creatinine 1.93 H (0.51-0.95) mg/dL Est GFR ( Amer) 32.7 (>60) Est GFR (Non-Af Amer) 25.4 (>60) BUN/Creatinine Ratio 16.1 (8-20) Glucose 95 (70-100) mg/dL Lactic Acid (0.5-2.0) mmol/L Calcium 8.7 (8.6-10.3) mg/dL Magnesium 2.2 (1.9-2.7) mg/dL Total Bilirubin 0.40 (0.2-1.0) mg/dL AST 23 (13-39) U/L ALT 23 (7-52) U/L Alkaline Phosphatase 65 (34-104) U/L Ammonia 38 (16-53) mcmol/L CK-MB (CK-2) 5.7 (0.6-6.3) ng/mL Troponin I 0.05 H* (<0.04) ng/mL C-Reactive Protein 4.77 (< 5.00) mg/L B-Natriuretic Peptide 113 H ( - 100) pg/mL Total Protein 6.6 (6.4-8.9) g/dL Albumin 3.8 (3.2-5.2) g/dL Globulin 2.8 (2-4) g/dL Albumin/Globulin Ratio 1.4 (1-3) Lipase 29 (11.0-82.0) U/L TSH 1.30 (0.34-5.60) mcIU/mL Acetaminophen < 15 mcg/mL Serum Alcohol < 10 (<10) mg/dL 06/16/17 06/16/17 Range/Units 09:46 10:40 WBC 10.5 (3.5-10.8) 10^3/ul RBC 4.00 (4.0-5.4) 10^6/ul Hgb 12.4 (12.0-16.0) g/dl Hct 38 (35-47) % MCV 94 (80-97) fL MCH 31 (27-31) pg MCHC 33 (31-36) g/dl RDW 15 (10.5-15) % Plt Count 261 (150-450) 10^3/ul MPV 7.8 (7.4-10.4) um3 Neut % (Auto) Not Reportable Lymph % (Auto) Not Reportable [place] % (Auto) Not Reportable Eos % (Auto) Not Reportable Baso % (Auto) Not Reportable Absolute Neuts (auto) 7.7 (1.5-7.7) 10^3/ul Absolute Lymphs (auto) 1.3 (1.0-4.8) 10^3/ul Absolute Monos (auto) 0.8 (0-0.8) 10^3/ul Absolute Eos (auto) 0.6 (0-0.6) 10^3/ul Absolute Basos (auto) 0.2 (0-0.2) 10^3/ul Absolute Nucleated RBC 0 10^3/ul Neutrophils % 73 (38-83) % Lymphocytes % 14 L (25-47) % Reactive Lymphs % 3 (0-6) % Monocytes % 7 (0-7) % Eosinophils % 3 (0-6) % Basophils % 0 (0-2) % Nucleated RBC % 0.1 Abs Neuts (Manual) 7.7 (1.5-7.7) 10^3/ul Abs Lymphs (Manual) 1.5 (1.0-4.8) 10^3/ul Abs Monocytes (Manual) 0.7 (0-0.8) 10^3/ul Absolute Eos (Manual) 0.3 (0-0.6) 10^3/ul Abs Basophils (Manual) 0 (0-0.2) 10^3/ul Normal RBC Morphology Normal (Normal) Hem Pathologist Commnt Pending INR (Anticoag Therapy) (0.77-1.02) APTT (26.0-36.3) seconds D-Dimer, Quantitative (Less Than 230) ng/mL Sodium (139-145) mmol/L Potassium (3.5-5.0) mmol/L Chloride (101-111) mmol/L Carbon Dioxide (22-32) mmol/L Anion Gap (2-11) mmol/L BUN (6-24) mg/dL Creatinine (0.51-0.95) mg/dL Est GFR ( Amer) (>60) Est GFR (Non-Af Amer) (>60) BUN/Creatinine Ratio (8-20) Glucose (70-100) mg/dL Lactic Acid 1.7 (0.5-2.0) mmol/L Calcium (8.6-10.3) mg/dL Magnesium (1.9-2.7) mg/dL Total Bilirubin (0.2-1.0) mg/dL AST (13-39) U/L ALT (7-52) U/L Alkaline Phosphatase (34-104) U/L Ammonia (16-53) mcmol/L CK-MB (CK-2) (0.6-6.3) ng/mL Troponin I (<0.04) ng/mL C-Reactive Protein (< 5.00) mg/L B-Natriuretic Peptide ( - 100) pg/mL Total Protein (6.4-8.9) g/dL Albumin (3.2-5.2) g/dL Globulin (2-4) g/dL Albumin/Globulin Ratio (1-3) Lipase (11.0-82.0) U/L TSH (0.34-5.60) mcIU/mL Acetaminophen mcg/mL Serum Alcohol (<10) mg/dL Result Diagrams: 06/16/17 09:46 06/16/17 09:46 Lab Statement: Any lab studies that have been ordered have been reviewed, and results considered in the medical decision making process. - Radiology CXR Xray Interpretation: No Acute Changes - IMPRESSION: 1. SMALL LEFT BASILAR INFILTRATE. 2. MASSLIKE DENSITY IN THE RIGHT UPPER LOBE SMALLER THAN ON THE PRIOR STUDY. Dr. Chand has reviewed this report. Radiology Interpretation Completed By: Radiologist - EKG 09:25 Cardiac Rate: NL EKG Rhythm: Sinus Rhythm - at [address] Segment: Normal Ectopy: None Course/Dx - Course Course Of Treatment: ADMIT HOSPITALIST. CRITICAL CARE TIME LESS THAN 30 MINUTES Assessment/Plan: Medications reviewed. Allergies noted. BP noted and patient urged to follow up with primary care. - Diagnoses Provider Diagnoses: HTN (hypertension), Shortness of breath, COPD (chronic obstructive pulmonary disease), Elevated troponin - Physician Notifications Discussed Care of Patient With: Kadi Kasper Time Discussed With Above Provider: 11:38 Instructed by Provider To: Admit As Inpatient Discharge - Sign-Out/Discharge Documenting (check all that apply): Discharge/Admit/Transfer - Patient will be admitted - Discharge Plan Condition: Stable Disposition: ADMITTED TO [facility] Referrals: Suzette France MD [Primary Care Provider] - - Billing Disposition and Condition Condition: STABLE [place] [place] The documentation as recorded by the Makayla ray Thomas accurately reflects the service I personally performed and the decisions made by , Jarrett Chand MD.
[2017-06-16] MEDS ORDERED: Ipratropium 0.5MG/2.5ML NEB* 0.5 MG/2.5 ML NEB.SOLN INH PRN (14:18)
[2017-06-16] MEDS ORDERED: methylPREDNISolone 125 MG* 2 ML VIAL IV ONE (14:54)
[2017-06-16] MEDS: Albuterol/Ipratropium NEB.SOL* Albuterol 2.5 MG/Ipratropium 0.5 MG 3 ML INH PRN ×2 (15:51→20:10)
[2017-06-16] MEDS ORDERED: LORazepam TAB(*) 0.5 MG PO ONE (15:54)
[2017-06-16] MEDS ORDERED: Enoxaparin(*) 60 MG/0.6 ML SYR SUBCUT SCH (16:00)
--- NOTE | 2017-06-16 18:04 | RAD ---
Indication: COPD exacerbation. CT of the chest performed without IV contrast. Coronal and sagittal reconstructed images were obtained. Comparison is made with previous exam dated March 15, 2015. Again noted is an ovoid right upper lobe mass measuring 5.8 x 2.9 cm which is likely increased in size when compared to previous exam. There is multiple radiopaque marker is noted. There is encasement of several bronchi noted in this area. There is suggestion of right hilar adenopathy noted. There is a precarinal lymph node measuring up to 6 mm which is unchanged from previous exam. The heart demonstrates no pericardial effusion. No pleural fluid is identified. The left lung field demonstrates COPD. No focal nodules are noted. No alveolar consolidation or pneumothorax is noted. The abdominal organs likely represents a cortical cyst in the upper pole of left kidney. The remainder of the dominant organs are unremarkable. IMPRESSION: OVOID RIGHT UPPER LOBE MASS APPEARS TO BE PROGRESSIVE IN SIZE NOW MEASURING 4.8 CM IN WIDTH X 2.9 CM AP WHEN COMPARED TO PREVIOUS EXAM. EMPHYSEMATOUS CHANGES ARE NOTED.
--- NOTE | 2017-06-16 18:13 | HP ---
CC: Dr. France; Dr. Zuniga* HISTORY AND PHYSICAL: DATE OF ADMISSION: 06/16/17 PROVIDER: Anish Page NP ATTENDING PHYSICIAN: Dr. Kasper* (report dictated by Anish Page NP). PRIMARY CARE DOCTOR: Dr. France. GAMING INVESTIGATOR: Dr. Zuniga. DIESEL POWERPLANT MECHANIC: Dr. Whittaker. CHIEF COMPLAINT: Shortness of breath. HISTORY OF PRESENT ILLNESS: Ms. Tovar is a 71-year-old female with a past medical history of lung cancer, status post radiation; COPD, current tobacco abuse, continuous oxygen of 3 to 3.5 L; history of PE, on Coumadin; Crohn's disease, anxiety, status post colectomy with ileostomy, who presents to the emergency department today with worsening shortness of breath. She reports approximately 2 weeks ago she came down with a "regular cold" with reporting a runny nose, sore throat, headache, nasal congestion and cough. She reports that she saw her primary care provider, Dr. Frnace on 06/06/17 where she was diagnosed with sinus infection and which she was reports that she was treated with antibiotics, but does not remember the name. She also reports when she saw her at that time she had some increasing shortness of breath and was currently on a prednisone taper for a prior COPD exacerbation and at that time Dr. France increased her taper from 20 mg back up to 40 and started her back on the taper. She reports she initially felt better; however, over the course of the week, she has had worsening shortness of breath, cough, wheezing. She reports that she has been nebulizing herself 4 times a day with some relief, but it does not last long. She reports nonproductive cough, but states that she has a "harsh cough." She denies any fevers or chills. She reports a poor appetite. No nausea or vomiting. She has diarrhea at her baseline through her ileostomy and states that the output has been normal. Denies any urinary symptoms. She continues to smoke tobacco daily, smoking approximately 2 cigarettes a day. In the emergency department, she had a chest x-ray, which shows: 1. Small left basilar infiltrate. 2. Mass-like density in the right upper lobe, smaller than on prior study. She has no leukocytosis and no lactic acidosis. She does have a mildly elevated troponin of 0.05. On assessment in the emergency department, she continues to complain of wheezing and shortness of breath. In the emergency department, she was started on azithromycin and ceftriaxone. PAST MEDICAL HISTORY: 1. Crohn's disease with colectomy and ileostomy. 2. History of DVT and PE, on Coumadin. 3. COPD, on continuous oxygen 3 to 3.5 L. 4. Current tobacco abuse. 5. History of lung cancer, status post radiation. 6. Anxiety. 7. Depression. 8. Restless legs syndrome. 9. T6 compression fracture. 10. She was put on clotrimazole by her PCP for oral thrush and which she states was a 5-day course and she reports her oral symptoms have improved. 11. In regards to the patient's INR, it is noted to be 0.96. The patient states that she does take Coumadin and she monitors her INR at home on Mondays. Last time she reports she checked it was a week ago and it was 1.5. She speaks with Rosetta at Dr. France's office to help adjust her Coumadin. She reports over the course of the past week, she has taken Coumadin 3 mg, 3 mg, 2 mg, 2 mg, 1 mg, 1 mg and so forth. She is not able to tell me why she was on this regimen of Coumadin and today her INR is normal at 0.96. 12. Chronic kidney disease, stage 3. PAST SURGICAL HISTORY: 1. History of colon resection with ileostomy secondary to Crohn's. 2. 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 3. She has had multiple abdominal surgeries related to her Crohn's. HOME MEDICATIONS: 1. Mucinex 600 mg p.o. b.i.d. 2. Albuterol HFA inhaler 2 puffs INH q.4 hours p.r.n. 3. Aspirin 81 mg p.o. daily. 4. Acetaminophen 650 mg p.o. q.6 hours p.r.n. 5. Ativan 0.5 mg p.o. t.i.d. 6. Sensipar 30 mg p.o. q.a.m. 7. Spiriva 1 cap INH daily. 8. Paxil 30 mg p.o. q.p.m. 9. Opium tincture 0.6 mL up to 5 times daily, 3 mL max daily. 10. Clotrimazole shanell. Per the patient, she should have finished this course. 11. Atrovent 0.5 mg neb q.6 hours p.r.n. 12. Vitamin B12 injection 1000 mcg IM weekly. 13. Magnesium oxide 400 mg p.o. b.i.d. 14. Calcitriol 0.25 mcg p.o. q.a.m. 15. Coumadin 2 mg p.o. daily. ALLERGIES: EGGPLANT, VANCOMYCIN, TETANUS, LEVOFLOXACIN, REMICADE, EPINEPHRINE, DOXYCYCLINE, and DAPTOMYCIN. FAMILY HISTORY: Father has a history of heart disease. Paternal grandmother has diabetes. SOCIAL HISTORY: The patient is a long time smoker, smoking for the past 60 years, reporting she smokes 2 cigarettes a day. Denies alcohol use. Her partner, Nikki Desir, is her healthcare proxy. REVIEW OF SYSTEMS: A 14-point review of systems was performed. All the pertinent positives and negatives are mentioned in the history of present illness. Otherwise are negative. PHYSICAL EXAMINATION GENERAL APPEARANCE: Chronically ill female, lying in bed with mild dyspnea, alert and oriented x3. VITAL SIGNS: Temperature 98.2, heart rate 72, respirations 17, O2 sat 96% on 5 L nasal cannula, blood pressure is 120/68. HEENT: Head is normocephalic, atraumatic. Pupils are equal and reactive to light. Oropharynx is clear. No thrush noted. Moist mucous membranes. RESPIRATORY: Lungs have rhonchi throughout with some noted expiratory and inspiratory wheezes, mild dyspnea. No accessory muscle use. CARDIAC: S1, S2. Regular rate and rhythm. No murmur, rub, or gallop appreciated. No lower extremity edema noted. ABDOMEN: Obese, soft, nontender. Ileostomy in place with draining brown soft stool. EXTREMITIES: No clubbing, cyanosis, or edema. NEURO: Alert and oriented x3. Moves all extremities equally. Strength is 5/5 throughout. SKIN: Warm, pink, dry. ASSESSMENT AND PLAN: Ms. Tovar is a 71-year-old female with a past medical history of chronic obstructive pulmonary disease, on 3 L nasal cannula; current tobacco abuse; history of lung cancer, status post radiation; history of pulmonary embolism/deep venous thrombosis, on Coumadin; depression and anxiety, who presents to the emergency department today with report of 2 weeks of upper respiratory illness with worsening shortness of breath, wheezing and cough. 1. Chronic obstructive pulmonary disease exacerbation. The patient will be admitted to the telemetry unit with a diagnosis of chronic obstructive pulmonary disease exacerbation and she is noted to have a possible pneumonia with a left basilar infiltrate. She is wheezing on exam. At this point, she has not had any steroids in the emergency department. Plan to give her Solu- Medrol 125 mg IV x1 now and start her on 40 mg IV q.8 hours. She was started azithromycin and ceftriaxone in the emergency department. These will continue q.24 hours. Continue DuoNeb. Continue home inhalers Spiriva. I have asked Dr. Zuniga, who follows the patient as an outpatient, to see the patient in consultation. In regards to her history of lung cancer, on the chest x-ray it states that the mass-like density in the right upper lobe is smaller than on prior study. Plan will be to get a CT of the chest. Obtain sputum culture, S pneumoniae and Legionella urinary antigens. Continue Mucinex 600 mg p.o. b.i.d. 2. Elevated troponin. She has a mildly elevated troponin of 0.05. She has no chest pain. EKG showing normal sinus rhythm with a rate of 65. In comparison to prior EKG, there appears to be no acute ST changes. I suspect this is secondary to demand ischemia. We will monitor on tele and trend another troponin. 3. History of deep venous thrombosis and pulmonary embolism. Again, the patient states that she is on Coumadin. I question if she is taking her medications appropriately as her INR is 0.96 and her reported dosage of Coumadin was abnormal. Plan to start the patient on Lovenox at 1 mg/kg q.24 hours due to her creatinine clearance. This will give her full coverage and restart her on her Coumadin. We will try to obtain records from Dr. France's office as she states that she has followup with Erum at Dr. France's office for her Coumadin doses. She does have a noted elevated D-dimer. She cannot undergo a CTA due to her renal function. At this point, the plan will just to be to anticoagulate the patient and bridge her with lovenox and coumadin 4. History of lung cancer, status post radiation. Per the chest x-ray, the mass appears to be smaller than previous imaging. Again, the patient will undergo a CT of the chest. 5. Anxiety/depression. Continue Ativan 0.5 mg p.o. t.i.d. Continue Paxil 30 mg p.o. q.a.m. 6. Crohn's disease, status post ileostomy. Okay for the patient to continue on her opium tincture, which she uses at home. 7. Chronic kidney disease. The patient appears to be around her baseline renal function. Renally dosed medications. 8. DVT prophylaxis: Lovenox bridge to Coumadin. 9. Code status: The patient states that she is a DNR. The patient's MOLST is on the chart. 10. Hospital status: Inpatient with chronic obstructive pulmonary disease exacerbation with possible pneumonia. TIME SPENT: Approximately 75 minutes was spent on this admission. ANISH PAGE NP [id number]/[facility] #: [id number] ANI
[2017-06-16] MEDS: PARoxetine HCL TAB* 10 MG PO SCH (19:17)
[2017-06-16] MEDS: LORazepam TAB(*) 1 MG PO SCH (21:52)
[2017-06-16] MEDS: Warfarin TAB(*) 3 MG PO SCH (21:52)
[2017-06-16] MEDS: Magnesium Oxide TAB* 400 MG PO SCH (21:53)
[2017-06-16] MEDS: Opium Tincture* 6 MG/0.6 ML ORAL.LIQ SYRINGE PO PRN (21:53)
[2017-06-16] MEDS: Enoxaparin(*) 60 MG/0.6 ML SYR SUBCUT SCH (21:56)
[2017-06-16] MEDS: methylPREDNISolone SOD 40 MG* 1 ML VIAL IV SCH (21:57)
[2017-06-16] MEDS ORDERED: Heparin VIAL(*) 5000 UNITS/ML VIAL (FIVE THOUSAND) SUBCUT SCH (22:00)
[2017-06-17] MEDS: NS 0.9% 1000 ML* 1,000 ML IV SCH ×3 (03:04→22:20)
[2017-06-17] MEDS: Opium Tincture* 6 MG/0.6 ML ORAL.LIQ SYRINGE PO PRN ×5 (06:35→21:24)
[2017-06-17] MEDS: methylPREDNISolone SOD 40 MG* 1 ML VIAL IV SCH ×3 (06:36→21:25)
[2017-06-17 06:54] LABS: ABS Basophils 0 10^3/ul (0-0.2); ABS Eosinophils 0 10^3/ul (0-0.6); ABS Lymphocytes 0.8 10^3/ul (1.0-4.8); ABS Monocytes 0.4 10^3/ul (0-0.8); ABS Nucleated RBC 0 10^3/ul; Eosinophil % 0 % (0-6); Hematocrit 30 % (35-47); Hemoglobin 10.1 g/dl (12.0-16.0); Lymphocyte % 8.8 % (25-47); Mean Corpuscular HGB Conc 33 g/dl (31-36); Mean Corpuscular Hemoglobin 31 pg (27-31); Mean Corpuscular Volume 94 fL (80-97); Mean Platelet Volume 7.6 um3 (7.4-10.4); Nucleated Red Blood Cells % 0; Platelet Count 224 10^3/ul (150-450); Red Blood Count 3.22 10^6/ul (4.0-5.4); Red Cell Distribution Width 15 % (10.5-15); White Blood Count 9.2 10^3/ul (3.5-10.8)
[2017-06-17 07:00] LABS: INR 1.1 (0.77-1.02)
[2017-06-17 07:15] LABS: EGFR Non-African American 31.4 (>60)
[2017-06-17] MEDS: Tiotropium CAP.INH* CAP.INH/18 MCG (USE ORDER SET !) INH SCH (08:02)
[2017-06-17] MEDS ORDERED: Spiriva Inhaler DEVICE* 1 EACH DEVICE INH ONE (09:00)
[2017-06-17] MEDS: Calcitriol CAP* 0.25 MCG PO SCH (09:06)
[2017-06-17] MEDS: Magnesium Oxide TAB* 400 MG PO SCH ×2 (09:06→21:23)
[2017-06-17] MEDS: Aspirin EC TAB* 81 MG TAB.EC PO SCH (09:06)
[2017-06-17] MEDS: Cinacalcet TAB* 30 MG PO SCH (09:06)
[2017-06-17] MEDS: guaiFENesin ER TAB 600 MG PO PRN ×2 (09:06→21:30)
[2017-06-17] MEDS: LORazepam TAB(*) 1 MG PO SCH ×3 (09:07→21:23)
[2017-06-17] MEDS: Azithromycin IV(*) 500 MG in NS 0.9% 250 ML* 250 ML IVPB SCH (09:18)
[2017-06-17] MEDS: Albuterol/Ipratropium NEB.SOL* Albuterol 2.5 MG/Ipratropium 0.5 MG 3 ML INH PRN ×2 (09:54→15:51)
[2017-06-17 09:55] LABS: Urine Appearance Clear; Urine Blood Negative (Negative); Urine Color Yellow; Urine Ketones Negative (Negative); Urine Protein Negative (Negative); Urine Specific Gravity 1.018 (1.010-1.030); Urine Urobilinogen Negative (Negative)
[2017-06-17] MEDS: cefTRIAXone(*) 1 GM in NS 0.9% 50 ML* 50 ML IVPB SCH (12:00)
--- NOTE | 2017-06-17 13:51 | ECHO ---
Patient: VIANCA NIELSON [facility] Rec#: [id number] : 1945 Date: 06/17/2017 Age: 71y Height: 147.32 cm / 58.0 in Weight: 70.31 kg / 155.0 lbs Sex: F BSA: 1.63 Room#: 413 Admit Date#: 06/16/2017 Type: Inpatient Referring: Kadi Kasper MD Reading: Axel Brown MD Computer Tech: Maria Victoria Hair RD,RDMS Transthoracic Echocardiogram Indication: SOB BP: 120/42 HR: 65 Rhythm: NSR Findings History: COPD, lung cancer, radiation, smoker, O2 dependent Technical Comments: The study is technically limited due to the patient's history of COPD. Left Ventricle: The left ventricular chamber size is normal. Mild to moderate concentric left ventricular hypertrophy is observed. The left ventricle appears hyperdynamic. The estimated ejection fraction is greater than 65%. There is an E to A reversal in the mitral valve flow pattern suggestive of diastolic dysfunction. Left Atrium: The left atrial chamber size is normal. Right Ventricle: The right ventricular chamber size and systolic function are within normal limits. Right Atrium: The right atrial cavity size is normal. Aortic Valve: The aortic valve leaflets are mildly thickened. Systolic excursion of the aortic valve is normal. There is no evidence of aortic regurgitation. There is no evidence of aortic stenosis. Mitral Valve: The mitral valve leaflets appear normal. There is no evidence of mitral regurgitation. There is no evidence of mitral stenosis. Tricuspid Valve: The tricuspid valve leaflets are normal. There is trace tricuspid regurgitation. Unable to estimate the right ventricular systolic pressure. Pulmonic Valve: The pulmonic valve structure is not well visualized. There is no evidence of pulmonic regurgitation. Pericardium: There is no significant pericardial effusion. Aorta: The aortic root appears normal. There is no dilatation of the aortic arch. Pulmonary Artery: The main pulmonary artery is not well visualized. Venous: The inferior vena cava appears normal in size. There is less than 50% respiratory change in the inferior vena cava dimension. Conclusions The study is technically limited due to the patient's history of COPD. Mild to moderate concentric left ventricular hypertrophy is observed. The left ventricle appears hyperdynamic. The estimated ejection fraction is greater than 65%. There is trace tricuspid regurgitation. Measurements Name Value Normal Range RVIDd (AP) 2D 2.6 cm (0.9 - 2.6) RVDdMajor (2D) 2.8 cm (2.2 - 4.4) RAd ISD 4CH 3.7 cm (3.4 - 4.9) RA (A4C)W 3 cm (2.9 - 4.6) IVSd (2D) 1.4 cm (0.6 - 1) LVPWd (2D) 1.3 cm (0.6 - 1) LVIDd (2D) 3.7 cm (3.6 - 5.4) LVIDs (2D) 3 cm - LV FS (2D) 21 % (25 - 45) Aortic Annulus 2 cm (1.4 - 2.6) Ao root diameter (2D) 2.6 cm (2.1 - 3.5) Ascending Ao 2.5 cm (2.1 - 3.4) Aortic arch 3.1 cm (1.8 - 3.4) LAd ISD 4CH 5.1 cm (2.9 - 5.3) LA ISD 4CH W 3.1 cm (2.5 - 4.5) Name Value Normal Range LA ESV SP 4CH (A/L) 49.37 ml - LA ESV SP 4CH (MOD) 43.3 ml - Name Value Normal Range MV E-wave Vmax 0.7 m/sec - MV deceleration time 208 msec - MV A-wave Vmax 0.8 m/sec - MV E:A ratio 0.9 ratio - P. vein S-wave Vmax 0.6 m/sec - P. vein D-wave Vmax 0.4 m/sec - P. vein S:D Vmax ratio 1.3 ratio - P. vein A-wave duration 96.1 msec - LV septal e' Vmax 0.07 m/sec - LV lateral e' Vmax 0.08 m/sec - LV E:e' septal ratio 10 ratio - LV E:e' lateral ratio 9 ratio - Name Value Normal Range AV Vmax 1.5 m/sec - AV VTI 33.1 cm - AV peak gradient 9 mmHg - AV mean gradient 5.3 mmHg - LVOT Vmax 1.6 m/sec - LVOT VTI 38.6 cm - LVOT peak gradient 10 mmHg - LVOT mean gradient 5.2 mmHg - ADALI Vmax 0.6 m/sec - Name Value Normal Range RAP 8 mmHg - IVC diameter 2.1 cm - Name Value Normal Range PV Vmax 1 m/sec - PV peak gradient 4 mmHg -
--- NOTE | 2017-06-17 14:27 | CONS ---
PULMONARY CONSULTATION REPORT: DATE OF CONSULT: 06/17/17 REQUESTING PHYSICIAN: Uzma Beck NP REASON FOR CONSULT: Evaluation of shortness of breath. HISTORY OF PRESENT ILLNESS: The patient is a 71-year-old female with history of severe COPD, history of lung cancer status post radiation with recurrence, chronic disease, chronic anxiety, history of A.fib, on Coumadin, significant hypoxemia, recurrent admissions in the past for acute COPD exacerbation and recurrent bronchitis, who presents for reevaluation of worsening shortness of breath. The patient's shortness of breath has been gradually worsening over the past 2 weeks. She had runny nose, sore throat, headache, and nasal congestion prior to 2 weeks. Her symptoms have been worsening since then. She was seen by her primary care physician on 06/23/17 and was diagnosed with sinus infection, was started on antibiotics. Her shortness of breath continued to worsen, did not improve in spite of being on prednisone taper recently. The patient was noted to be significantly dyspneic on arrival in the emergency room. She also has been having significant cough, mostly nonproductive in nature. The patient did not have fevers or chills, appetite is poor, has diarrhea at baseline through her ileostomy with no change in output. She continues to smoke 2 cigarettes per day. Chest x-ray in the emergency room was personally reviewed by me, evidence of small basilar infiltrate and opacity in the right upper lobe consistent with prior CT scan finding of cancer. She did not have white count or elevated lactic acid. Troponin was slightly elevated at 0.05. She was admitted for management of acute COPD exacerbation. She was started on bronchodilators, steroids, and was started on empiric therapy for community acquired pneumonia with Rocephin and Zithromax. PAST MEDICAL HISTORY: 1. Crohn's disease with colectomy and ileostomy. 2. Atrial fibrillationon Coumadin. 3. COPD, on 3 to 3.5 liters. 4. Tobacco abuse. 5. Lung cancer, status post radiation. 6. Anxiety. 7. Depression. 8. Restless leg syndrome. 9. T6 compression fracture. 10. Chronic kidney disease, stage 3. PAST SURGICAL HISTORY: 1. Resection and ileostomy. 2. AV fistula. 3. Multiple abdominal surgeries. MEDICATIONS: 1. Mucinex. 2. Albuterol. 3. Aspirin. 4. Acetaminophen. 5. Ativan. 6. Sensipar. 7. Spiriva. 8. Paxil. 9. Opium tincture. 10. Clotrimazole. 11. Atrovent. 12. Vitamin B12. 13. Magnesium. 14. Calcitriol. 15. Coumadin. ALLERGIES: EGGPLANT, VANCOMYCIN, TETANUS, LEVOFLOXACIN, REMICADE, EPINEPHRINE, DOXYCYCLINE, and DAPTOMYCIN. FAMILY HISTORY: Father with heart disease, paternal grandmother has diabetes. SOCIAL HISTORY: Long-time smoker, quit for a little bit, started smoking again , smokes about 2 cigarettes per day. Denies alcohol or drug abuse. REVIEW OF SYSTEMS: A 14-point review of systems was as above. PHYSICAL EXAM: The patient is in bed, in no apparent distress. She appears to be slightly drowsy and sleepy. Temperature 98, heart rate 61 beats per minute, respiratory rate 16 per minute, O2 sat 100% on 3 liters, blood pressure 120/42. HEENT: Pupils are equal, round, and reactive to light. Lungs: Diminished air entry bilaterally, scattered wheezing present on auscultation. Cardiovascular: S1 and S2 present, regular. Abdomen: Soft, nontender, and nondistended. Bowel sounds present. Skin: No rash or bruises. Neuro: No focal deficits. DIAGNOSTIC STUDIES/LAB DATA: WBC 9.2, hemoglobin 10.1, hematocrit 30, platelet count was 224. Sodium 141, potassium 4.6, chloride 106, bicarb 28, BUN 29, creatinine 1.61, troponin slightly elevated at 0.05, trending down to 0.04, BNP elevated at 113, lactic acid within normal limits. Chest x-ray as described above in HPI. IMPRESSION AND RECOMMENDATIONS: 71-year-old female with history of recurrent bronchitis, severe chronic obstructive pulmonary disease, current smoking status , on chronic prednisone therapy with worsening shortness of breath after recent upper respiratory infection symptoms and sinusitis, being treated for acute chronic obstructive pulmonary disease exacerbation. The patient is improving slowly, still kind of sleepy and fatigued. She also has high-output ileostomy, which also results in disruptive sleep and daytime fatigue. She has a history of obstructive sleep apnea, was on CPAP, which she has not been compliant recently, which might also be worsening her symptoms. Continue with current management for acute chronic obstructive pulmonary disease exacerbation, will do slow taper on her prednisone. Continue with bronchodilators. Thank you for allowing me to participate in the care of your patient. Will follow up with you. [id number]/[facility] #: [id number] ANI
[2017-06-17] MEDS ORDERED: Azithromycin IV(*) 500 MG in NS 0.9% 250 ML* 250 ML IVPB SCH (15:00)
[2017-06-17] MEDS: Enoxaparin(*) 60 MG/0.6 ML SYR SUBCUT SCH (15:17)
[2017-06-17] MEDS ORDERED: Saline NASAL SPRAY 0.65%* BTL BOTH NARES PRN (16:53)
--- NOTE | 2017-06-17 17:16 | PN ---
Hospitalist Progress Note Date of Service: 06/17/17 Assess/Plan/Problems-Billing Assessment: - Patient Problems (1) COPD exacerbation Current Visit: No Status: Acute Priority: High Code(s): J44.1 - CHRONIC OBSTRUCTIVE PULMONARY DISEASE W (ACUTE) EXACERBATION SNOMED Code(s): 362092837788657 Comment: --Changed Duonebs to scheduled dose and place pt on PRN Levalbuterol --Discussed possibility of hospice with pt given her previous experience with it , however, pt is not yet interested in being placed back in hospice but is open to that if she doesn't improve --Increase Solumedrol to 60 mg dose --Continue antibiotics at this time (2) Mass of upper lobe of right lung Current Visit: Yes Comment: --To rediscuss increasing mass in terms of hospice if pt still remains unimprove in AM --Continue watchful waiting (3) Elevated troponin Current Visit: Yes Status: Acute Code(s): R74.8 - ABNORMAL LEVELS OF OTHER SERUM ENZYMES SNOMED Code(s): 033094565 Comment: --Likely due to demand ischemia given SOB and/or due to the mass identified in CT --Will obtain 2D echo to R/O wall motion abnormalities (4) History of DVT (deep vein thrombosis) Current Visit: Yes Status: Acute Code(s): Z86.718 - PERSONAL HISTORY OF OTHER VENOUS THROMBOSIS AND EMBOLISM SNOMED Code(s): 120646333 Comment: --Continue Lovenox --Continue watchful waiting Status and Disposition: To rediscuss possible hospice again in context of mildly increasing RUL mass especially if pt is unimproved
[2017-06-17] MEDS: Warfarin TAB(*) 3 MG PO SCH (18:11)
[2017-06-17] MEDS: PARoxetine HCL TAB* 10 MG PO SCH (18:12)
[2017-06-17] MEDS: Albuterol/Ipratropium NEB.SOL* Albuterol 2.5 MG/Ipratropium 0.5 MG 3 ML INH SCH ×2 (18:44→19:37)
[2017-06-17] MEDS ORDERED: Levalbuterol 0.63MG/3ML NEB* UNIT OF USE INH SCH (19:00)
[2017-06-17] MEDS ORDERED: Ipratropium 0.5MG/2.5ML NEB* 0.5 MG/2.5 ML NEB.SOLN INH PRN ×2 (19:39→23:50)
[2017-06-17] MEDS: Ipratropium 0.5MG/2.5ML NEB* 0.5 MG/2.5 ML NEB.SOLN INH SCH ×2 (22:29→23:57)
[2017-06-18] MEDS: Opium Tincture* 6 MG/0.6 ML ORAL.LIQ SYRINGE PO PRN ×4 (05:04→17:29)
[2017-06-18] MEDS: methylPREDNISolone SOD 40 MG* 1 ML VIAL IV SCH (05:04)
[2017-06-18 05:16] LABS: Hematocrit 30 % (35-47); Hemoglobin 9.5 g/dl (12.0-16.0); Mean Corpuscular HGB Conc 32 g/dl (31-36); Mean Corpuscular Hemoglobin 31 pg (27-31); Mean Corpuscular Volume 96 fL (80-97); Mean Platelet Volume 7.8 um3 (7.4-10.4); Platelet Count 246 10^3/ul (150-450); Red Blood Count 3.09 10^6/ul (4.0-5.4); Red Cell Distribution Width 16 % (10.5-15); White Blood Count 11.5 10^3/ul (3.5-10.8)
[2017-06-18] MEDS: Ipratropium 0.5MG/2.5ML NEB* 0.5 MG/2.5 ML NEB.SOLN INH SCH ×3 (07:26→19:27)
[2017-06-18] MEDS: Tiotropium CAP.INH* CAP.INH/18 MCG (USE ORDER SET !) INH SCH (07:26)
[2017-06-18] MEDS: Calcitriol CAP* 0.25 MCG PO SCH (08:57)
[2017-06-18] MEDS: Azithromycin IV(*) 500 MG in NS 0.9% 250 ML* 250 ML IVPB SCH (08:57)
[2017-06-18] MEDS: Cinacalcet TAB* 30 MG PO SCH (08:57)
[2017-06-18] MEDS: guaiFENesin ER TAB 600 MG PO PRN (08:58)
[2017-06-18] MEDS: Aspirin EC TAB* 81 MG TAB.EC PO SCH (08:58)
[2017-06-18] MEDS: Magnesium Oxide TAB* 400 MG PO SCH ×2 (08:58→21:17)
[2017-06-18] MEDS: LORazepam TAB(*) 1 MG PO SCH ×3 (08:58→21:18)
[2017-06-18] MEDS: NS 0.9% 1000 ML* 1,000 ML IV SCH (09:03)
--- NOTE | 2017-06-18 10:19 | PN ---
Subjective Date of Service: 06/18/17 Interval History: Feels somewhat better than yesterday, less SOB, but not well enough to go home. Objective Active Medications: Acetaminophen (Tylenol Tab*) 650 mg PO Q6H PRN PRN Reason: pain/fever Aspirin (Aspirin Ec Tab*) 81 mg PO DAILY [facility] Last Admin: 06/18/17 08:58 Dose: 81 mg Calcitriol (Rocaltrol Cap*) 0.25 mcg PO QAM [facility] Last Admin: 06/18/17 08:57 Dose: 0.25 mcg Cinacalcet (Sensipar Tab*) 30 mg PO QAM [facility] Last Admin: 06/18/17 08:57 Dose: 30 mg Enoxaparin Sodium (Lovenox(*)) 55 mg SUBCUT Q24H [facility] Last Admin: 06/17/17 15:17 Dose: 55 mg Guaifenesin (Mucinex*) 600 mg PO BID PRN PRN Reason: CONGESTION Last Admin: 06/18/17 08:58 Dose: 600 mg Ceftriaxone Sodium 1 gm/ (Sodium Chloride) 50 mls @ 200 mls/hr IVPB Q24H [facility] Last Admin: 06/17/17 12:00 Dose: 200 mls/hr Azithromycin 500 mg/ Sodium (Chloride) 250 mls @ 250 mls/hr IVPB Q24H [facility] Last Admin: 06/18/17 08:57 Dose: 250 mls/hr Sodium Chloride (Ns 0.9% 1000 Ml*) 1,000 mls @ 125 mls/hr IV PER RATE [facility] Last Admin: 06/18/17 09:03 Dose: 125 mls/hr Ipratropium [place] (Atrovent 0.5 Mg Neb.[place]*) 0.5 mg INH [id number] AWAKE [facility] Last Admin: 06/18/17 07:26 Dose: 0.5 mg Ipratropium [place] (Atrovent 0.5 Mg Neb.[place]*) 0.5 mg INH Q4H PRN PRN Reason: SOB/WHEEZING Lorazepam (Ativan Tab(*)) 0.5 mg PO TID [facility] Last Admin: 06/18/17 08:58 Dose: 0.5 mg Magnesium Oxide (Magox 400 Tab*) 400 mg PO BID [facility] Last Admin: 06/18/17 08:58 Dose: 400 mg Opium Tincture (Opium Tincture*) 6 mg PO FIVE TIMES DAILY PRN PRN Reason: SEVERE DIARRHEA Last Admin: 06/18/17 08:57 Dose: 6 mg Paroxetine HCl (Paxil Tab*) 30 mg PO QPM [facility] Last Admin: 06/17/17 18:12 Dose: 30 mg Prednisone (Deltasone Tab*) 60 mg PO DAILY [facility] Sodium Chloride (Sodium Chloride 0.65% Nasal [place]*) 1 spray BOTH NARES Q4H PRN PRN Reason: Dry nasal passages Tiotropium [place] (Spiriva Cap.Inh*) 1 cap INH DAILY [facility] Last Admin: 06/18/17 07:26 Dose: 1 cap Warfarin Sodium (Coumadin Tab(*)) 3 mg PO DAILY@1700 [facility] PRN Reason: Protocol Last Admin: 06/17/17 18:11 Dose: 3 mg Vital Signs - 8 hr 06/18/17 06/18/17 06/18/17 03:15 05:04 07:28 Temperature 98.1 F Pulse Rate 77 66 Respiratory 16 18 18 Rate Blood Pressure 144/53 (mmHg) O2 Sat by Pulse 100 99 Oximetry 06/18/17 06/18/17 06/18/17 08:26 08:57 08:58 Temperature Pulse Rate Respiratory 16 22 22 Rate Blood Pressure (mmHg) O2 Sat by Pulse Oximetry Oxygen Devices in Use Now: Nasal Cannula Appearance: Alert, sitting up in bed. In fair spirits. Looks comfortable. Respiratory: Symmetrical Chest Expansion and Respiratory Effort, Clear to Percussion, - - mild to mod rhonchi BL Extremities: No Edema, No Clubbing, Cyanosis, - Skin: No Rash or Ulcers, No Nodules or Sclerosis, - Neurological: Alert and Oriented x 3, NL Sensation Result Diagrams: 06/18/17 04:55 06/18/17 04:55 Additional Lab and Data: Lab Results 06/16/17 06/16/17 06/16/17 Range/Units 09:46 09:46 09:46 WBC (3.5-10.8) 10^3/ul RBC (4.0-5.4) 10^6/ul Hgb (12.0-16.0) g/dl Hct (35-47) % MCV (80-97) fL MCH (27-31) pg MCHC (31-36) g/dl RDW (10.5-15) % Plt Count (150-450) 10^3/ul MPV (7.4-10.4) um3 Neut % (Auto) Lymph % (Auto) [place] % (Auto) Eos % (Auto) Baso % (Auto) Absolute Neuts (auto) (1.5-7.7) 10^3/ul Absolute Lymphs (auto) (1.0-4.8) 10^3/ul Absolute Monos (auto) (0-0.8) 10^3/ul Absolute Eos (auto) (0-0.6) 10^3/ul Absolute Basos (auto) (0-0.2) 10^3/ul Absolute Nucleated RBC 10^3/ul Neutrophils % (38-83) % Lymphocytes % (25-47) % Reactive Lymphs % (0-6) % Monocytes % (0-7) % Eosinophils % (0-6) % Basophils % (0-2) % Nucleated RBC % Abs Neuts (Manual) (1.5-7.7) 10^3/ul Abs Lymphs (Manual) (1.0-4.8) 10^3/ul Abs Monocytes (Manual) (0-0.8) 10^3/ul Absolute Eos (Manual) (0-0.6) 10^3/ul Abs Basophils (Manual) (0-0.2) 10^3/ul Normal RBC Morphology (Normal) Hem Pathologist Commnt INR (Anticoag Therapy) 0.96 (0.77-1.02) APTT 29.3 (26.0-36.3) seconds D-Dimer, Quantitative 240 H (Less Than 230) ng/mL Sodium 142 (139-145) mmol/L Potassium 4.0 (3.5-5.0) mmol/L Chloride 102 (101-111) mmol/L Carbon Dioxide 33 H (22-32) mmol/L Anion Gap 7 (2-11) mmol/L BUN 31 H (6-24) mg/dL Creatinine 1.93 H (0.51-0.95) mg/dL Est GFR ( Amer) 32.7 (>60) Est GFR (Non-Af Amer) 25.4 (>60) BUN/Creatinine Ratio 16.1 (8-20) Glucose 95 (70-100) mg/dL Lactic Acid (0.5-2.0) mmol/L Calcium 8.7 (8.6-10.3) mg/dL Magnesium 2.2 (1.9-2.7) mg/dL Total Bilirubin 0.40 (0.2-1.0) mg/dL AST 23 (13-39) U/L ALT 23 (7-52) U/L Alkaline Phosphatase 65 (34-104) U/L Ammonia 38 (16-53) mcmol/L CK-MB (CK-2) 5.7 (0.6-6.3) ng/mL Troponin I 0.05 H* (<0.04) ng/mL C-Reactive Protein 4.77 (< 5.00) mg/L B-Natriuretic Peptide 113 H ( - 100) pg/mL Total Protein 6.6 (6.4-8.9) g/dL Albumin 3.8 (3.2-5.2) g/dL Globulin 2.8 (2-4) g/dL Albumin/Globulin Ratio 1.4 (1-3) Lipase 29 (11.0-82.0) U/L TSH 1.30 (0.34-5.60) mcIU/mL Acetaminophen < 15 mcg/mL Serum Alcohol < 10 (<10) mg/dL 06/16/17 06/16/17 Range/Units 09:46 10:40 WBC 10.5 (3.5-10.8) 10^3/ul RBC 4.00 (4.0-5.4) 10^6/ul Hgb 12.4 (12.0-16.0) g/dl Hct 38 (35-47) % MCV 94 (80-97) fL MCH 31 (27-31) pg MCHC 33 (31-36) g/dl RDW 15 (10.5-15) % Plt Count 261 (150-450) 10^3/ul MPV 7.8 (7.4-10.4) um3 Neut % (Auto) Not Reportable Lymph % (Auto) Not Reportable [place] % (Auto) Not Reportable Eos % (Auto) Not Reportable Baso % (Auto) Not Reportable Absolute Neuts (auto) 7.7 (1.5-7.7) 10^3/ul Absolute Lymphs (auto) 1.3 (1.0-4.8) 10^3/ul Absolute Monos (auto) 0.8 (0-0.8) 10^3/ul Absolute Eos (auto) 0.6 (0-0.6) 10^3/ul Absolute Basos (auto) 0.2 (0-0.2) 10^3/ul Absolute Nucleated RBC 0 10^3/ul Neutrophils % 73 (38-83) % Lymphocytes % 14 L (25-47) % Reactive Lymphs % 3 (0-6) % Monocytes % 7 (0-7) % Eosinophils % 3 (0-6) % Basophils % 0 (0-2) % Nucleated RBC % 0.1 Abs Neuts (Manual) 7.7 (1.5-7.7) 10^3/ul Abs Lymphs (Manual) 1.5 (1.0-4.8) 10^3/ul Abs Monocytes (Manual) 0.7 (0-0.8) 10^3/ul Absolute Eos (Manual) 0.3 (0-0.6) 10^3/ul Abs Basophils (Manual) 0 (0-0.2) 10^3/ul Normal RBC Morphology Normal (Normal) Hem Pathologist Commnt Pending INR (Anticoag Therapy) (0.77-1.02) APTT (26.0-36.3) seconds D-Dimer, Quantitative (Less Than 230) ng/mL Sodium (139-145) mmol/L Potassium (3.5-5.0) mmol/L Chloride (101-111) mmol/L Carbon Dioxide (22-32) mmol/L Anion Gap (2-11) mmol/L BUN (6-24) mg/dL Creatinine (0.51-0.95) mg/dL Est GFR ( Amer) (>60) Est GFR (Non-Af Amer) (>60) BUN/Creatinine Ratio (8-20) Glucose (70-100) mg/dL Lactic Acid 1.7 (0.5-2.0) mmol/L Calcium (8.6-10.3) mg/dL Magnesium (1.9-2.7) mg/dL Total Bilirubin (0.2-1.0) mg/dL AST (13-39) U/L ALT (7-52) U/L Alkaline Phosphatase (34-104) U/L Ammonia (16-53) mcmol/L CK-MB (CK-2) (0.6-6.3) ng/mL Troponin I (<0.04) ng/mL C-Reactive Protein (< 5.00) mg/L B-Natriuretic Peptide ( - 100) pg/mL Total Protein (6.4-8.9) g/dL Albumin (3.2-5.2) g/dL Globulin (2-4) g/dL Albumin/Globulin Ratio (1-3) Lipase (11.0-82.0) U/L TSH (0.34-5.60) mcIU/mL Acetaminophen mcg/mL Serum Alcohol (<10) mg/dL Microbiology and Other Data: Microbiology 06/17/17 09:22 Legionella Urinary Antigen - Final Urine Negative Legionella Antigen Streptococcus pneumoniae Ag Screen - Final Negative S. pneumo Antigen Assess/Plan/Problems-Billing Assessment: - Patient Problems (1) COPD exacerbation Current Visit: No Status: Acute Priority: High Code(s): J44.1 - CHRONIC OBSTRUCTIVE PULMONARY DISEASE W (ACUTE) EXACERBATION SNOMED Code(s): 821514097454025 Comment: Spiriva daily, PRN Levalbuterol Prednisone taper, start 60 mg 06/19. --Continue azith, ceftri. (2) Lung cancer Current Visit: No Status: Acute Code(s): C34.90 - MALIGNANT NEOPLASM OF UNSP PART OF UNSP BRONCHUS OR LUNG SNOMED Code(s): 004408857 Comment: Fup with Dr. Wang as outpt. (3) History of DVT (deep vein thrombosis) Current Visit: Yes Status: Acute Code(s): Z86.718 - PERSONAL HISTORY OF OTHER VENOUS THROMBOSIS AND EMBOLISM SNOMED Code(s): 009973859 Comment: Warfarin increased to 3 mg daily. Repeat INR 06/20. Continue enoxaparin until INR 2. (4) Tobacco abuse Current Visit: No Status: Acute Code(s): Z72.0 - TOBACCO USE SNOMED Code(s ): 890734700 Comment: Pt advised to quit smoking and avoid second hand smoke. Status and Disposition: To rediscuss possible hospice again in context of mildly increasing RUL mass especially if pt is unimproved
[2017-06-18] MEDS ORDERED: Ipratropium 0.5MG/2.5ML NEB* 0.5 MG/2.5 ML NEB.SOLN INH SCH (11:00)
[2017-06-18] MEDS ORDERED: Levalbuterol 1.25MG/0.5ML NEB INH SCH (11:00)
[2017-06-18] MEDS: cefTRIAXone(*) 1 GM in NS 0.9% 50 ML* 50 ML IVPB SCH (11:41)
[2017-06-18] MEDS: Enoxaparin(*) 60 MG/0.6 ML SYR SUBCUT SCH (15:21)
[2017-06-18] MEDS: Warfarin TAB(*) 3 MG PO SCH (16:31)
[2017-06-18] MEDS: PARoxetine HCL TAB* 10 MG PO SCH (17:29)
[2017-06-19] MEDS: Opium Tincture* 6 MG/0.6 ML ORAL.LIQ SYRINGE PO PRN ×2 (00:13→08:21)
[2017-06-19] MEDS: Ipratropium 0.5MG/2.5ML NEB* 0.5 MG/2.5 ML NEB.SOLN INH SCH ×4 (00:14→19:49)
[2017-06-19 06:51] LABS: INR 2.29 (0.77-1.02)
[2017-06-19] MEDS: LORazepam TAB(*) 1 MG PO SCH ×3 (08:19→21:04)
[2017-06-19] MEDS: Aspirin EC TAB* 81 MG TAB.EC PO SCH (08:19)
[2017-06-19] MEDS: Calcitriol CAP* 0.25 MCG PO SCH (08:19)
[2017-06-19] MEDS: Cinacalcet TAB* 30 MG PO SCH (08:19)
[2017-06-19] MEDS: guaiFENesin ER TAB 600 MG PO PRN (08:20)
[2017-06-19] MEDS: Magnesium Oxide TAB* 400 MG PO SCH ×2 (08:20→21:04)
[2017-06-19] MEDS: Tiotropium CAP.INH* CAP.INH/18 MCG (USE ORDER SET !) INH SCH (08:20)
[2017-06-19] MEDS: Azithromycin IV(*) 500 MG in NS 0.9% 250 ML* 250 ML IVPB SCH (08:43)
[2017-06-19] MEDS ORDERED: predniSONE TAB* 20 MG PO SCH (09:00)
[2017-06-19] MEDS: cefTRIAXone(*) 1 GM in NS 0.9% 50 ML* 50 ML IVPB SCH (10:38)
--- NOTE | 2017-06-19 12:58 | ADMNOTE ---
Subjective Date of Service: 06/19/17 Interval History: Slowly improving but only has walked in her room so far. No new c/o. Review of Systems - Measurements Intake and Output: Intake and Output Last 24 Hours 06/17/17 06/18/17 06/19/17 06/20/17 06:59 06:59 06:59 06:59 Intake Total 1547 3532 1340 400 Output Total 375 2100 3400 350 Balance 1172 1432 -2060 50 Weight 125 lb Intake: IV Fluids 1547 2792 0 NS (0.9%) 947 2792 0 Oral 0 740 1340 400 Output: Urine 350 Mcgill 900 2200 Colostomy 375 800 Ileostomy 850 400 350 Other: Estimated Void Medium Large # Bowel Movements 0 0 Estimated Stool Amount Medium Large # Voids 1 2 Objective Active Medications: Acetaminophen (Tylenol Tab*) 650 mg PO Q6H PRN PRN Reason: pain/fever Aspirin (Aspirin Ec Tab*) 81 mg PO DAILY [facility] Last Admin: 06/19/17 08:19 Dose: 81 mg Calcitriol (Rocaltrol Cap*) 0.25 mcg PO QAM [facility] Last Admin: 06/19/17 08:19 Dose: 0.25 mcg Cinacalcet (Sensipar Tab*) 30 mg PO QAM [facility] Last Admin: 06/19/17 08:19 Dose: 30 mg Enoxaparin Sodium (Lovenox(*)) 55 mg SUBCUT Q24H [facility] Last Admin: 06/18/17 15:21 Dose: 55 mg Guaifenesin (Mucinex*) 600 mg PO BID PRN PRN Reason: CONGESTION Last Admin: 06/19/17 08:20 Dose: 600 mg Ceftriaxone Sodium 1 gm/ (Sodium Chloride) 50 mls @ 200 mls/hr IVPB Q24H [facility] Last Admin: 06/19/17 10:38 Dose: 200 mls/hr Azithromycin 500 mg/ Sodium (Chloride) 250 mls @ 250 mls/hr IVPB Q24H [facility] Last Admin: 06/19/17 08:43 Dose: 250 mls/hr Ipratropium [place] (Atrovent 0.5 Mg Neb.Vesna*) 0.5 mg INH [id number] AWAKE [facility] Last Admin: 06/19/17 12:42 Dose: 0.5 mg Lorazepam (Ativan Tab(*)) 0.5 mg PO TID [facility] Last Admin: 06/19/17 08:19 Dose: 0.5 mg Magnesium Oxide (Magox 400 Tab*) 400 mg PO BID [facility] Last Admin: 06/19/17 08:20 Dose: 400 mg Opium Tincture (Opium Tincture*) 6 mg PO FIVE TIMES DAILY PRN PRN Reason: SEVERE DIARRHEA Last Admin: 06/19/17 08:21 Dose: 6 mg Paroxetine HCl (Paxil Tab*) 30 mg PO QPM [facility] Last Admin: 06/18/17 17:29 Dose: 30 mg Prednisone (Deltasone Tab*) 50 mg PO DAILY [facility] Sodium Chloride (Sodium Chloride 0.65% Nasal [place]*) 1 spray BOTH NARES Q4H PRN PRN Reason: Dry nasal passages Tiotropium [place] (Spiriva Cap.Inh*) 1 cap INH DAILY [facility] Last Admin: 06/19/17 08:20 Dose: 1 cap Warfarin Sodium (Coumadin Tab(*)) 3 mg PO DAILY@1700 [facility] PRN Reason: Protocol Last Admin: 06/18/17 16:31 Dose: 3 mg Vital Signs - 8 hr 06/19/17 06/19/17 06/19/17 05:04 07:08 08:00 Temperature 97.9 F Pulse Rate 73 Respiratory 18 22 Rate Blood Pressure 138/56 (mmHg) O2 Sat by Pulse 100 97 Oximetry 06/19/17 06/19/17 06/19/17 08:19 08:21 10:37 Temperature Pulse Rate Respiratory 22 22 20 Rate Blood Pressure (mmHg) O2 Sat by Pulse Oximetry 06/19/17 12:40 Temperature Pulse Rate 84 Respiratory Rate Blood Pressure (mmHg) O2 Sat by Pulse Oximetry Oxygen Devices in Use Now: Nasal Cannula Appearance: Alert, partly up in bed. In fair spirits. Looks comfortable. Eyes: No Scleral Icterus Neck: NL Appearance and Movements; NL JVP, No Thyroid Enlargement, Masses Respiratory: Symmetrical Chest Expansion and Respiratory Effort, Clear to Percussion, - - mild rhonchi BL Cardiovascular: NL Sounds; No Murmurs; No JVD, RRR, No Edema, - Extremities: No Edema, No Clubbing, Cyanosis, - Skin: No Rash or Ulcers, No Nodules or Sclerosis, - Neurological: Alert and Oriented x 3, NL Sensation Result Diagrams: 06/18/17 04:55 06/18/17 04:55 Additional Lab and Data: Lab Results 06/16/17 06/16/17 06/16/17 Range/Units 09:46 09:46 09:46 WBC (3.5-10.8) 10^3/ul RBC (4.0-5.4) 10^6/ul Hgb (12.0-16.0) g/dl Hct (35-47) % MCV (80-97) fL MCH (27-31) pg MCHC (31-36) g/dl RDW (10.5-15) % Plt Count (150-450) 10^3/ul MPV (7.4-10.4) um3 Neut % (Auto) Lymph % (Auto) [place] % (Auto) Eos % (Auto) Baso % (Auto) Absolute Neuts (auto) (1.5-7.7) 10^3/ul Absolute Lymphs (auto) (1.0-4.8) 10^3/ul Absolute Monos (auto) (0-0.8) 10^3/ul Absolute Eos (auto) (0-0.6) 10^3/ul Absolute Basos (auto) (0-0.2) 10^3/ul Absolute Nucleated RBC 10^3/ul Neutrophils % (38-83) % Lymphocytes % (25-47) % Reactive Lymphs % (0-6) % Monocytes % (0-7) % Eosinophils % (0-6) % Basophils % (0-2) % Nucleated RBC % Abs Neuts (Manual) (1.5-7.7) 10^3/ul Abs Lymphs (Manual) (1.0-4.8) 10^3/ul Abs Monocytes (Manual) (0-0.8) 10^3/ul Absolute Eos (Manual) (0-0.6) 10^3/ul Abs Basophils (Manual) (0-0.2) 10^3/ul Normal RBC Morphology (Normal) Hem Pathologist Commnt INR (Anticoag Therapy) 0.96 (0.77-1.02) APTT 29.3 (26.0-36.3) seconds D-Dimer, Quantitative 240 H (Less Than 230) ng/mL Sodium 142 (139-145) mmol/L Potassium 4.0 (3.5-5.0) mmol/L Chloride 102 (101-111) mmol/L Carbon Dioxide 33 H (22-32) mmol/L Anion Gap 7 (2-11) mmol/L BUN 31 H (6-24) mg/dL Creatinine 1.93 H (0.51-0.95) mg/dL Est GFR ( Amer) 32.7 (>60) Est GFR (Non-Af Amer) 25.4 (>60) BUN/Creatinine Ratio 16.1 (8-20) Glucose 95 (70-100) mg/dL Lactic Acid (0.5-2.0) mmol/L Calcium 8.7 (8.6-10.3) mg/dL Magnesium 2.2 (1.9-2.7) mg/dL Total Bilirubin 0.40 (0.2-1.0) mg/dL AST 23 (13-39) U/L ALT 23 (7-52) U/L Alkaline Phosphatase 65 (34-104) U/L Ammonia 38 (16-53) mcmol/L CK-MB (CK-2) 5.7 (0.6-6.3) ng/mL Troponin I 0.05 H* (<0.04) ng/mL C-Reactive Protein 4.77 (< 5.00) mg/L B-Natriuretic Peptide 113 H ( - 100) pg/mL Total Protein 6.6 (6.4-8.9) g/dL Albumin 3.8 (3.2-5.2) g/dL Globulin 2.8 (2-4) g/dL Albumin/Globulin Ratio 1.4 (1-3) Lipase 29 (11.0-82.0) U/L TSH 1.30 (0.34-5.60) mcIU/mL Acetaminophen < 15 mcg/mL Serum Alcohol < 10 (<10) mg/dL 06/16/17 06/16/17 Range/Units 09:46 10:40 WBC 10.5 (3.5-10.8) 10^3/ul RBC 4.00 (4.0-5.4) 10^6/ul Hgb 12.4 (12.0-16.0) g/dl Hct 38 (35-47) % MCV 94 (80-97) fL MCH 31 (27-31) pg MCHC 33 (31-36) g/dl RDW 15 (10.5-15) % Plt Count 261 (150-450) 10^3/ul MPV 7.8 (7.4-10.4) um3 Neut % (Auto) Not Reportable Lymph % (Auto) Not Reportable [place] % (Auto) Not Reportable Eos % (Auto) Not Reportable Baso % (Auto) Not Reportable Absolute Neuts (auto) 7.7 (1.5-7.7) 10^3/ul Absolute Lymphs (auto) 1.3 (1.0-4.8) 10^3/ul Absolute Monos (auto) 0.8 (0-0.8) 10^3/ul Absolute Eos (auto) 0.6 (0-0.6) 10^3/ul Absolute Basos (auto) 0.2 (0-0.2) 10^3/ul Absolute Nucleated RBC 0 10^3/ul Neutrophils % 73 (38-83) % Lymphocytes % 14 L (25-47) % Reactive Lymphs % 3 (0-6) % Monocytes % 7 (0-7) % Eosinophils % 3 (0-6) % Basophils % 0 (0-2) % Nucleated RBC % 0.1 Abs Neuts (Manual) 7.7 (1.5-7.7) 10^3/ul Abs Lymphs (Manual) 1.5 (1.0-4.8) 10^3/ul Abs Monocytes (Manual) 0.7 (0-0.8) 10^3/ul Absolute Eos (Manual) 0.3 (0-0.6) 10^3/ul Abs Basophils (Manual) 0 (0-0.2) 10^3/ul Normal RBC Morphology Normal (Normal) Hem Pathologist Commnt Pending INR (Anticoag Therapy) (0.77-1.02) APTT (26.0-36.3) seconds D-Dimer, Quantitative (Less Than 230) ng/mL Sodium (139-145) mmol/L Potassium (3.5-5.0) mmol/L Chloride (101-111) mmol/L Carbon Dioxide (22-32) mmol/L Anion Gap (2-11) mmol/L BUN (6-24) mg/dL Creatinine (0.51-0.95) mg/dL Est GFR ( Amer) (>60) Est GFR (Non-Af Amer) (>60) BUN/Creatinine Ratio (8-20) Glucose (70-100) mg/dL Lactic Acid 1.7 (0.5-2.0) mmol/L Calcium (8.6-10.3) mg/dL Magnesium (1.9-2.7) mg/dL Total Bilirubin (0.2-1.0) mg/dL AST (13-39) U/L ALT (7-52) U/L Alkaline Phosphatase (34-104) U/L Ammonia (16-53) mcmol/L CK-MB (CK-2) (0.6-6.3) ng/mL Troponin I (<0.04) ng/mL C-Reactive Protein (< 5.00) mg/L B-Natriuretic Peptide ( - 100) pg/mL Total Protein (6.4-8.9) g/dL Albumin (3.2-5.2) g/dL Globulin (2-4) g/dL Albumin/Globulin Ratio (1-3) Lipase (11.0-82.0) U/L TSH (0.34-5.60) mcIU/mL Acetaminophen mcg/mL Serum Alcohol (<10) mg/dL Microbiology and Other Data: Microbiology 06/17/17 09:22 Legionella Urinary Antigen - Final Urine Negative Legionella Antigen Streptococcus pneumoniae Ag Screen - Final Negative S. pneumo Antigen Assess/Plan/Problems-Billing Assessment: - Patient Problems (1) COPD exacerbation Current Visit: No Status: Acute Priority: High Code(s): J44.1 - CHRONIC OBSTRUCTIVE PULMONARY DISEASE W (ACUTE) EXACERBATION SNOMED Code(s): 446651025693108 Comment: SLowly improving. Neew[place] to walk more. Spiriva daily, PRN Levalbuterol Prednisone taper, 50 mg 06/20. --Continue azith, ceftri. (2) Lung cancer Current Visit: No Status: Acute Code(s): C34.90 - MALIGNANT NEOPLASM OF UNSP PART OF UNSP BRONCHUS OR LUNG SNOMED Code(s): 193413381 Comment: Fup with Dr. Wang as outpt. (3) History of DVT (deep vein thrombosis) Current Visit: Yes Status: Acute Code(s): Z86.718 - PERSONAL HISTORY OF OTHER VENOUS THROMBOSIS AND EMBOLISM SNOMED Code(s): 811760843 Comment: Warfarin increased to 3 mg daily. Repeat INR 06/20. Continue enoxaparin until INR 2. (4) Tobacco abuse Current Visit: No Status: Acute Code(s): Z72.0 - TOBACCO USE SNOMED Code(s ): 627729609 Comment: Pt advised to quit smoking and avoid second hand smoke. Status and Disposition: To rediscuss possible hospice again in context of mildly increasing RUL mass especially if pt is unimproved
[2017-06-19] MEDS ORDERED: Albuterol/Ipratropium NEB.SOL* Albuterol 2.5 MG/Ipratropium 0.5 MG 3 ML INH ONE (16:29)
[2017-06-19] MEDS: Morphine VIAL* 4 MG/ML VIAL (1 ml vial) IV ONE (16:38)
[2017-06-19] MEDS ORDERED: Morphine INJ* 2 MG/ML 1 ML CARPUJECT IV ONE (16:50)
[2017-06-19] MEDS ORDERED: Morphine VIAL* 4 MG/ML VIAL (1 ml vial) IV ONE ×2 (16:57→17:00)
[2017-06-19] MEDS: Enoxaparin(*) 60 MG/0.6 ML SYR SUBCUT SCH (17:00)
[2017-06-19] MEDS: Warfarin TAB(*) 3 MG PO SCH (17:01)
[2017-06-19] MEDS: PARoxetine HCL TAB* 10 MG PO SCH (17:01)
--- NOTE | 2017-06-19 17:10 | PN ---
Progress Note - Progress Note Date of Service: 06/19/17 - Pulm f/u note Note: Pt seen and examined at bedside. Pt more alert today after Ativan dose was decreased. Pt reports worsening SOB, she was tearful during interview, expressed concern with worsening COPD. Denied much cough or sputum production She had c/o worsening SOB and developed possible bronchospasm. Bedside RN was summoned, Duoneb was administered. 2+2 mg of Morphine was also administered with slight improvement. RT was called to bedside for BiPAP. She was initiated on BiPAP and will be transferred to ICU for close monitoring Active Medications Generic Name Dose Route Start Last Admin Trade Name Freq PRN Reason Stop Dose Admin Acetaminophen 650 mg 06/16/17 14:18 Tylenol Tab* PO Q6H PRN pain/fever Aspirin 81 mg 06/17/17 09:00 06/19/17 08:19 Aspirin Ec Tab* PO 81 mg DAILY [facility] Administration Calcitriol 0.25 mcg 06/17/17 09:00 06/19/17 08:19 Rocaltrol Cap* PO 0.25 mcg QAM [facility] Administration Cinacalcet 30 mg 06/17/17 09:00 06/19/17 08:19 Sensipar Tab* PO 30 mg QAM [facility] Administration Enoxaparin Sodium 55 mg 06/16/17 15:00 06/18/17 15:21 Lovenox(*) SUBCUT 55 mg Q24H [facility] Administration Guaifenesin 600 mg 06/16/17 14:18 06/19/17 08:20 Mucinex* PO 600 mg BID PRN Administration CONGESTION Ceftriaxone Sodium 1 gm/ 50 mls @ 200 mls/hr 06/17/17 12:00 06/19/17 10:38 Sodium Chloride IVPB 200 mls/hr Q24H [facility] Administration Azithromycin 500 mg/ Sodium 250 mls @ 250 mls/hr 06/17/17 10:00 06/19/17 08: 43 Chloride IVPB 250 mls/hr Q24H [facility] Administration Ipratropium [place] 0.5 mg 06/18/17 13:00 06/19/17 12:42 Atrovent 0.5 Mg Neb.Vesna* INH 0.5 mg [id number] AWAKE [facility] Administration Lorazepam 0.5 mg 06/16/17 21:00 06/19/17 16:23 Ativan Tab(*) PO Not Given TID [facility] Magnesium Oxide 400 mg 06/16/17 21:00 06/19/17 08:20 Magox 400 Tab* PO 400 mg BID [facility] Administration Morphine Sulfate 2 mg 06/19/17 16:50 Morphine Inj (Syringe)* IV 06/19/17 16:51 ED ONCE ONE Opium Tincture 6 mg 06/16/17 22:00 06/19/17 08:21 Opium Tincture* PO 6 mg FIVE TIMES DAILY PRN Administration SEVERE DIARRHEA Paroxetine HCl 30 mg 06/16/17 18:00 06/18/17 17:29 Paxil Tab* PO 30 mg QPM [facility] Administration Prednisone 50 mg 06/19/17 12:38 Deltasone Tab* PO DAILY [facility] Sodium Chloride 1 spray 06/17/17 16:53 Sodium Chloride 0.65% Nasal [place]* BOTH NARES Q4H PRN Dry nasal passages Tiotropium [place] 1 cap 06/17/17 09:00 06/19/17 08:20 Spiriva Cap.Inh* INH 1 cap DAILY [facility] Administration Warfarin Sodium 3 mg 06/16/17 17:00 06/18/17 16:31 Coumadin Tab(*) PO 3 mg DAILY@1700 [facility] Administration Protocol Vital Signs Temp Pulse Resp BP Pulse Ox 98.1 F 75 32 149/75 97 06/19/17 14:30 06/19/17 14:30 06/19/17 16:38 06/19/17 14:30 06/19/17 14:30 O/E: Pt in resp distress, using accessory muscles of respiration HEENT: PERRLA, mucus membranes moist Lungs: Expiratory wheeze and rhonchi + b/l CVS: S1, S2+, tachycardic Abd: Soft, BS+ Ext: No edema Neuro: Alert, awake, no focal defecits Psych: Depressed, tearful Laboratory Results - last 24 hr 06/19/17 06:18 INR (Anticoag Therapy) 2.29 H I/R: 71 y o f with significant smoking history, still continuing to smoke few cigs, with lung cancer s/p XRT with recurrence, severe COPD, recurrent admissions, progressively worsening course recently, GABBY on CPAP a/w worsening SOB for acute COPD exacerbation Pt has been drowsy likely sec to medications, Ativan dose was decreased with improvement in mental status Pt with no imrpovement in breathing inspite of max therapy of COPD Pt with acute episode of bronchospasm, recognized immediately, Duoneb and Morphine were administered Pt with slight improvement, still in resp distress, using accessory muscles of resp Pt was initiated on NIPPV and was transferred to ICU for close monitoring Pt is full code currently, her condition was appropriate for hospice however she didnot consent for DNR status Her significant other Nikki is her HCP, she is currently in [place], will be returning this weekend Recurrent lung cancer s/p XRT Will manage as full code for now, BiPAP for rescue, nebs q 2hrs, while awake She is not hypoxic on 2L O2 Overall prognosis is guarded D/w RN, RT, Dr Felder aware of plan for transfer to ICU and change in status
[2017-06-19] MEDS: Acetaminophen TAB* 325 MG PO PRN (19:40)
[2017-06-20] MEDS: Ipratropium 0.5MG/2.5ML NEB* 0.5 MG/2.5 ML NEB.SOLN INH SCH ×4 (01:40→19:53)
[2017-06-20] MEDS: Acetaminophen TAB* 325 MG PO PRN ×2 (06:17→18:53)
[2017-06-20 06:47] LABS: INR 2.06 (0.77-1.02)
[2017-06-20] MEDS: LORazepam TAB(*) 1 MG PO SCH ×3 (08:22→21:29)
[2017-06-20] MEDS: Magnesium Oxide TAB* 400 MG PO SCH ×2 (09:34→21:29)
[2017-06-20] MEDS: Aspirin EC TAB* 81 MG TAB.EC PO SCH (09:34)
[2017-06-20] MEDS: Calcitriol CAP* 0.25 MCG PO SCH (09:34)
[2017-06-20] MEDS: Cinacalcet TAB* 30 MG PO SCH (09:34)
[2017-06-20] MEDS: Tiotropium CAP.INH* CAP.INH/18 MCG (USE ORDER SET !) INH SCH (09:38)
[2017-06-20] MEDS: predniSONE TAB* 50 MG PO SCH (10:01)
[2017-06-20] MEDS: Azithromycin IV(*) 500 MG in NS 0.9% 250 ML* 250 ML IVPB SCH (10:29)
[2017-06-20] MEDS: Morphine VIAL* 4 MG/ML VIAL (1 ml vial) IV ONE (11:06)
[2017-06-20] MEDS ORDERED: Morphine VIAL* 4 MG/ML VIAL (1 ml vial) IV ONE ×2 (11:10)
[2017-06-20] MEDS ORDERED: Morphine INJ* 10 MG/ML 1 ML CARPUJECT IV ONE (11:25)
--- NOTE | 2017-06-20 11:41 | PN ---
Progress Note - Progress Note Date of Service: 06/20/17 Note: Patient had an uneventful evening after ICU admission, but this AM (at about 11: 00 AM) developed acute-onset SOB - placed on BiPAP but continued to have respiratory distress, which eventually subsided with morphine (10 mg IV). Lung exam revealed scattered rhonchi and crackles, but no wheezes. BP initially up to 230/120, but decreased to 170/80 after the morphine. Etiology of this acute episode is unclear - this could be the product of mucus plugging or aspiration while asleep, but I cannot r/o pulmonary embolus ( although it seems unlikely that she would survive and acute embolus). Will follow this with a venous ultrasound of the leg veins (at the bedside) in search of thromboembolism. Dr. Angel is aware of this episode, and how it was managed, and is in agreement with the management. NOTE: This AM, patient agreed to DNR/DNI order while breathing comfortably, and reaffirmed this when she was in respiratory distress.
[2017-06-20] MEDS: cefTRIAXone(*) 1 GM in NS 0.9% 50 ML* 50 ML IVPB SCH (12:13)
[2017-06-20] MEDS: Morphine VIAL* 4 MG/ML VIAL (1 ml vial) IV PRN ×4 (14:03→22:49)
[2017-06-20] MEDS: Enoxaparin(*) 60 MG/0.6 ML SYR SUBCUT SCH (14:04)
--- NOTE | 2017-06-20 14:05 | RAD ---
HISTORY: Rule out DVT, history of DVT, shortness of breath COMPARISONS: February 05, 2011 TECHNIQUE: Multiple transverse and longitudinal ultrasound images were obtained of the bilateral lower extremities from the level of the common femoral vein inferiorly through to the infrapopliteal veins using grayscale, color Doppler, and spectral Doppler imaging with and without compression and with augmentation. FINDINGS: VEINS: There is thrombus noted within the superior portion of the left femoral vein which becomes occlusive. The femoral vein appears small which suggests chronic occlusion. There is also occlusion of the peroneal veins in the calf on the left. The remainder of the venous system of the bilateral lower extremities is compressible throughout its course, with normal flow on color Doppler imaging and normal response to augmentation on spectral Doppler imaging. SOFT TISSUES: Unremarkable. OTHER FINDINGS: None. IMPRESSION: 1. NO RIGHT LOWER EXTREMITY DEEP VEIN THROMBOSIS. 2. THERE IS OCCLUSIVE THROMBUS OF THE SUPERIOR EXTENT OF THE LEFT FEMORAL VEIN AND WITHIN THE LEFT PERONEAL VEIN IN THE CALF. THE VEINS APPEAR SMALL WHICH MAY INDICATE CHRONIC OCCLUSION.
[2017-06-20] MEDS: Enoxaparin(*) 80 MG/0.8 ML SYR SUBCUT SCH (15:08)
--- NOTE | 2017-06-20 15:44 | PN ---
Progress Note - Progress Note Date of Service: 06/20/17 - Pulm f/u note Note: Pt seen and examined at bedside. Pt is more alert, has been on BiPAP since yesterday. pt reports slight improvement in breathing. Active Medications Generic Name Dose Route Start Last Admin Trade Name Freq PRN Reason Stop Dose Admin Acetaminophen 650 mg 06/16/17 14:18 06/20/17 06:17 Tylenol Tab* PO 650 mg Q6H PRN Administration pain/fever Aspirin 81 mg 06/17/17 09:00 06/20/17 09:34 Aspirin Ec Tab* PO 81 mg DAILY HANK Administration Calcitriol 0.25 mcg 06/17/17 09:00 06/20/17 09:34 Rocaltrol Cap* PO 0.25 mcg QAM HANK Administration Cinacalcet 30 mg 06/17/17 09:00 06/20/17 09:34 Sensipar Tab* PO 30 mg QAM HANK Administration Enoxaparin Sodium 70 mg 06/20/17 15:00 06/20/17 15:08 Lovenox(*) SUBCUT Not Given Q24H HANK Guaifenesin 600 mg 06/16/17 14:18 06/19/17 08:20 Mucinex* PO 600 mg BID PRN Administration CONGESTION Ceftriaxone Sodium 1 gm/ 50 mls @ 200 mls/hr 06/17/17 12:00 06/20/17 12:13 Sodium Chloride IVPB 200 mls/hr Q24H HANK Administration Azithromycin 500 mg/ Sodium 250 mls @ 250 mls/hr 06/17/17 10:00 06/20/17 10: 29 Chloride IVPB 250 mls/hr Q24H HANK Administration Ipratropium [place] 0.5 mg 06/18/17 13:00 06/20/17 12:48 Atrovent 0.5 Mg Neb.Vesna* INH 0.5 mg [id number] AWAKE HANK Administration Lorazepam 0.5 mg 06/16/17 21:00 06/20/17 14:08 Ativan Tab(*) PO 0.5 mg TID HANK Administration Magnesium Oxide 400 mg 06/16/17 21:00 06/20/17 09:34 Magox 400 Tab* PO 400 mg BID HANK Administration Morphine Sulfate 4 mg 06/20/17 11:22 06/20/17 14:03 Morphine Vial* IV 4 mg Q2H PRN Administration DISCOMFORT Opium Tincture 6 mg 06/16/17 22:00 06/19/17 08:21 Opium Tincture* PO 6 mg FIVE TIMES DAILY PRN Administration SEVERE DIARRHEA Paroxetine HCl 30 mg 06/16/17 18:00 06/19/17 17:01 Paxil Tab* PO 30 mg QPM HANK Administration Pharmacy Profile Note 0 note 06/20/17 17:00 Coumadin Daily Reminder* FOLLOW UP 1700 [facility] Prednisone 50 mg 06/19/17 12:38 06/20/17 10:01 Deltasone Tab* PO 50 mg DAILY HANK Administration Sodium Chloride 1 spray 06/17/17 16:53 Sodium Chloride 0.65% Nasal [place]* BOTH NARES Q4H PRN Dry nasal passages Tiotropium [place] 1 cap 06/17/17 09:00 06/20/17 09:38 Spiriva Cap.Inh* INH 1 cap DAILY HANK Administration Warfarin Sodium 3 mg 06/16/17 17:00 06/19/17 17:01 Coumadin Tab(*) PO 3 mg DAILY@1700 HAKN Administration Protocol Vital Signs Temp Pulse Resp BP Pulse Ox 98.8 F 102 14 138/80 100 06/20/17 15:38 06/20/17 15:00 06/20/17 15:25 06/20/17 15:00 06/20/17 15:00 O/E: Pt in NAD HEENT: PERRLA, mucus membranes moist Lungs: Expiratory wheeze and rhonchi + b/l CVS: S1, S2+, tachycardic Abd: Soft, BS+ Ext: No edema Neuro: Alert, awake, no focal defecits Psych: Depressed, tearful Laboratory Results - last 24 hr 06/19/17 06/20/17 17:50 06:14 INR (Anticoag Therapy) 2.06 H Patient Temperature Not Reportable ABG pH 7.41 ABG pH (Temp Correct) Not Reportable ABG pCO2 57 H ABG pCO2 (Temp Corrct Not Reportable ABG pO2 157 H ABG pO2 (Temp Correct Not Reportable ABG HCO3 32.6 H ABG O2 Saturation 99.5 H ABG Base Excess 9.8 H Respiration Rate Not Reportable Ventilator Type Not Reportable Vent Mode Not Reportable FiO2 40 Inspiratory Time Not Reportable PEEP Not Reportable Pressure Support Not Reportable Pressure Control Not Reportable EPAP Not Reportable IPAP Not Reportable BiPAP Not Reportable I/R: 71 y o f with significant smoking history, still continuing to smoke few cigs, with lung cancer s/p XRT with recurrence, severe COPD, recurrent admissions, progressively worsening course recently, GABBY on CPAP a/w worsening SOB for acute COPD exacerbation Pt reports benefit from Morphine Will get her off BiPAP during daytime and c/w BiPAP at night ABG reviewed, compensated resp acidosis Will have pt in ICU today for close monitoring Pt consented for DNR status Her significant other Nikki is her HCP, she is currently in [facility], will be returning this weekend Recurrent lung cancer s/p XRT She is not hypoxic on 2-3L O2 Overall prognosis is guarded D/w Dr Enrique
[2017-06-20] MEDS: Warfarin TAB(*) 3 MG PO SCH (17:43)
[2017-06-20] MEDS: PARoxetine HCL TAB* 10 MG PO SCH (17:43)
[2017-06-20] MEDS: Opium Tincture* 6 MG/0.6 ML ORAL.LIQ SYRINGE PO SCH ×2 (18:09→21:30)
[2017-06-21] MEDS: Ipratropium 0.5MG/2.5ML NEB* 0.5 MG/2.5 ML NEB.SOLN INH SCH ×4 (01:12→19:33)
[2017-06-21] MEDS: Morphine VIAL* 4 MG/ML VIAL (1 ml vial) IV PRN ×5 (01:46→15:20)
[2017-06-21] MEDS: LORazepam TAB(*) 1 MG PO SCH ×4 (06:47→20:32)
[2017-06-21] MEDS: Tiotropium CAP.INH* CAP.INH/18 MCG (USE ORDER SET !) INH SCH (07:12)
[2017-06-21 08:02] LABS: INR 2.59 (0.77-1.02)
[2017-06-21] MEDS: Opium Tincture* 6 MG/0.6 ML ORAL.LIQ SYRINGE PO SCH ×5 (09:43→20:33)
[2017-06-21] MEDS: Aspirin EC TAB* 81 MG TAB.EC PO SCH (09:44)
[2017-06-21] MEDS: Morphine TAB Extended Release (*) 15 MG TAB.ER PO SCH ×2 (09:44→17:26)
[2017-06-21] MEDS: Azithromycin IV(*) 500 MG in NS 0.9% 250 ML* 250 ML IVPB SCH (09:44)
[2017-06-21] MEDS: Cinacalcet TAB* 30 MG PO SCH (09:44)
[2017-06-21] MEDS: Magnesium Oxide TAB* 400 MG PO SCH ×2 (09:44→20:32)
[2017-06-21] MEDS: Calcitriol CAP* 0.25 MCG PO SCH (09:44)
[2017-06-21] MEDS: predniSONE TAB* 50 MG PO SCH (09:44)
[2017-06-21] MEDS: cefTRIAXone(*) 1 GM in NS 0.9% 50 ML* 50 ML IVPB SCH (13:08)
--- NOTE | 2017-06-21 13:24 | PN ---
Progress Note - Progress Note Date of Service: 06/21/17 - Pulm f/u note Note: Pt seen and examined at bedside. Interim events noted. Pt was on BiPAP at time of exam, was transitioned to nasal cannula. Pt reported that she didnot sleep well last night and is feeling sleepy this morning. Overall feeling better today Active Medications Generic Name Dose Route Start Last Admin Trade Name Freq PRN Reason Stop Dose Admin Acetaminophen 650 mg 06/16/17 14:18 06/20/17 18:53 Tylenol Tab* PO 650 mg Q6H PRN Administration pain/fever Aspirin 81 mg 06/17/17 09:00 06/21/17 09:44 Aspirin Ec Tab* PO 81 mg DAILY HANK Administration Calcitriol 0.25 mcg 06/17/17 09:00 06/21/17 09:44 Rocaltrol Cap* PO 0.25 mcg QAM HANK Administration Cinacalcet 30 mg 06/17/17 09:00 06/21/17 09:44 Sensipar Tab* PO 30 mg QAM HANK Administration Enoxaparin Sodium 70 mg 06/20/17 15:00 06/20/17 15:08 Lovenox(*) SUBCUT Not Given Q24H HANK Guaifenesin 600 mg 06/16/17 14:18 06/19/17 08:20 Mucinex* PO 600 mg BID PRN Administration CONGESTION Ceftriaxone Sodium 1 gm/ 50 mls @ 200 mls/hr 06/17/17 12:00 06/21/17 13:08 Sodium Chloride IVPB 200 mls/hr Q24H HANK Administration Azithromycin 500 mg/ Sodium 250 mls @ 250 mls/hr 06/17/17 10:00 06/21/17 09: 44 Chloride IVPB 250 mls/hr Q24H HANK Administration Ipratropium [place] 0.5 mg 06/18/17 13:00 06/21/17 12:09 Atrovent 0.5 Mg Neb.Vesna* INH 0.5 mg [id number] AWAKE HANK Administration Lorazepam 0.5 mg 06/16/17 21:00 06/21/17 13:08 Ativan Tab(*) PO 0.5 mg TID HANK Administration Magnesium Oxide 400 mg 06/16/17 21:00 06/21/17 09:44 Magox 400 Tab* PO 400 mg BID HANK Administration Morphine Sulfate 4 mg 06/20/17 11:22 06/21/17 09:44 Morphine Vial* IV 4 mg Q2H PRN Administration DISCOMFORT Morphine Sulfate 15 mg 06/21/17 10:00 06/21/17 09:44 Ms Contin(*) PO 15 mg Q8H HANK Administration Opium Tincture 6 mg 06/20/17 18:00 06/21/17 13:08 Opium Tincture* PO 6 mg FIVE TIMES DAILY HANK Administration Paroxetine HCl 30 mg 06/16/17 18:00 06/20/17 17:43 Paxil Tab* PO 30 mg QPM HANK Administration Pharmacy Profile Note 0 note 06/20/17 17:00 06/20/17 16:38 Coumadin Daily Reminder* FOLLOW UP 1 note 1700 HANK Administration Prednisone 50 mg 06/19/17 12:38 06/21/17 09:44 Deltasone Tab* PO 50 mg DAILY HANK Administration Sodium Chloride 1 spray 06/17/17 16:53 Sodium Chloride 0.65% Nasal [place]* BOTH NARES Q4H PRN Dry nasal passages Tiotropium [place] 1 cap 06/17/17 09:00 06/21/17 07:12 Spiriva Cap.Inh* INH 1 cap DAILY HANK Administration Warfarin Sodium 3 mg 06/16/17 17:00 06/20/17 17:43 Coumadin Tab(*) PO 3 mg DAILY@1700 HANK Administration Protocol O/E: Pt in NAD, appears tired HEENT: PERRLA, No JVD Lungs: Diminished air entry b/l, scaterred wheeze + CVS: S1, S2+ Abd: Soft, BS+ Ext:Trace edema +, no tenderness to palpation Skin: Ecchymosis + in UE Neuro: Drowsy, awakes to verbal stimuli, is oriented x3 Laboratory Results - last 24 hr 06/21/17 07:44 INR (Anticoag Therapy) 2.59 H I/R: 71 y o f with h/o severe COPD, lung cancer with recurrence, underwent XRT, Chrons s/p ileostomy with high out put, GABBY on CPAP a/w worsening SOB for acute COPD exacerbation Pt reports benefit from Morphine, has po and IV ordered She is also on Opium for high out put ileostomy Will get her off BiPAP during daytime and c/w BiPAP at night Will have pt in ICU today for close monitoring, can transfer to floor tomorrow if stable Pt consented for DNR status Her significant other Nikki is her HCP, she is currently in [place], will be returning this weekend Recurrent lung cancer s/p XRT, progressing as per imaging findings Taper prednisone to 40mg tomorrow She is not hypoxic on 2-3L O2 Overall prognosis is guarded D/w Dr Enrique
--- NOTE | 2017-06-21 14:36 | PN ---
Subjective Date of Service: 06/20/17 Interval History: . I saw Ms. Tovar earlier in the morning of 06/20/17 -- before the event described by Dr. Enrique. After that, pt on biPAP and stable. pt nodded when I later asked if she is ok. previous notes reviewed and discussed case with Dr. Enrique. . Family History: Unchanged from Admission Social History: Unchanged from Admission Past Medical History: Unchanged from Admission Objective Active Medications: . Acetaminophen (Tylenol Tab*) 650 mg PO Q6H PRN PRN Reason: pain/fever Last Admin: 06/20/17 18:53 Dose: 650 mg Aspirin (Aspirin Ec Tab*) 81 mg PO DAILY [facility] Last Admin: 06/21/17 09:44 Dose: 81 mg Calcitriol (Rocaltrol Cap*) 0.25 mcg PO QAM [facility] Last Admin: 06/21/17 09:44 Dose: 0.25 mcg Cinacalcet (Sensipar Tab*) 30 mg PO QAM [facility] Last Admin: 06/21/17 09:44 Dose: 30 mg Enoxaparin Sodium (Lovenox(*)) 70 mg SUBCUT Q24H [facility] Last Admin: 06/20/17 15:08 Dose: Not Given Guaifenesin (Mucinex*) 600 mg PO BID PRN PRN Reason: CONGESTION Last Admin: 06/19/17 08:20 Dose: 600 mg Ceftriaxone Sodium 1 gm/ (Sodium Chloride) 50 mls @ 200 mls/hr IVPB Q24H [facility] Last Admin: 06/21/17 13:08 Dose: 200 mls/hr Azithromycin 500 mg/ Sodium (Chloride) 250 mls @ 250 mls/hr IVPB Q24H [facility] Last Admin: 06/21/17 09:44 Dose: 250 mls/hr Ipratropium [place] (Atrovent 0.5 Mg Neb.Vesna*) 0.5 mg INH [id number] AWAKE [facility] Last Admin: 06/21/17 12:09 Dose: 0.5 mg Lorazepam (Ativan Tab(*)) 0.5 mg PO TID [facility] Last Admin: 06/21/17 13:08 Dose: 0.5 mg Magnesium Oxide (Magox 400 Tab*) 400 mg PO BID [facility] Last Admin: 06/21/17 09:44 Dose: 400 mg Morphine Sulfate (Morphine Vial*) 4 mg IV Q2H PRN PRN Reason: DISCOMFORT Last Admin: 06/21/17 13:22 Dose: 4 mg Morphine Sulfate (Ms Contin(*)) 15 mg PO Q8H [facility] Last Admin: 06/21/17 09:44 Dose: 15 mg Opium Tincture (Opium Tincture*) 6 mg PO FIVE TIMES DAILY [facility] Last Admin: 06/21/17 13:08 Dose: 6 mg Paroxetine HCl (Paxil Tab*) 30 mg PO QPM [facility] Last Admin: 06/20/17 17:43 Dose: 30 mg Pharmacy Profile Note (Coumadin Daily Reminder*) 0 note FOLLOW UP 1700 [facility] Last Admin: 06/20/17 16:38 Dose: 1 note Prednisone (Deltasone Tab*) 50 mg PO DAILY [facility] Last Admin: 06/21/17 09:44 Dose: 50 mg Sodium Chloride (Sodium Chloride 0.65% Nasal [place]*) 1 spray BOTH NARES Q4H PRN PRN Reason: Dry nasal passages Tiotropium [place] (Spiriva Cap.Inh*) 1 cap INH DAILY [facility] Last Admin: 06/21/17 07:12 Dose: 1 cap Warfarin Sodium (Coumadin Tab(*)) 3 mg PO DAILY@1700 [facility] PRN Reason: Protocol Last Admin: 06/20/17 17:43 Dose: 3 mg . Vital Signs - 8 hr 06/21/17 06/21/17 06/21/17 06:31 06:47 07:00 Temperature Pulse Rate 76 Respiratory 18 16 18 Rate Blood Pressure 161/74 (mmHg) O2 Sat by Pulse 99 Oximetry 06/21/17 06/21/17 06/21/17 07:13 07:34 07:49 Temperature Pulse Rate 66 73 Respiratory 16 12 18 Rate Blood Pressure 145/89 (mmHg) O2 Sat by Pulse 100 91 Oximetry Oxygen Devices in Use Now: BiPAP Appearance: sleeping earlier in day 06/20; later on BiPAP Ears/Nose/Mouth/Throat: NL Teeth, Lips, Gums Neck: NL Appearance and Movements; NL JVP Respiratory: Symmetrical Chest Expansion and Respiratory Effort, - - rhonchorous , tachypneic, distant sounds; on BiPAP. Cardiovascular: NL Sounds; No Murmurs; No JVD Abdominal: NL Sounds; No Tenderness; No Distention, - - + ostomy Lymphatic: No Cervical Adenopathy Extremities: No Edema Skin: No Rash or Ulcers Neurological: Alert and Oriented x 3 Lines/Tubes/Other Access: Clean, Dry and Intact Peripheral IV Nutrition: - - on BiPAP Result Diagrams: 06/18/17 04:55 06/18/17 04:55 Additional Lab and Data: . Microbiology and Other Data: Microbiology 06/17/17 09:22 Legionella Urinary Antigen - Final Urine Negative Legionella Antigen Streptococcus pneumoniae Ag Screen - Final Negative S. pneumo Antigen Assess/Plan/Problems-Billing . Assessment: 71 yo female with h/o severe COPD, lung cancer (and recurrence), s/p radiation, now with orsening SOB for acute COPD exacerbation Medically complex patient with Crohn's s/p ileostomy with high output, on Opium as antimotility agent GABBY - on BiPAP DNR status - Patient Problems (1) COPD exacerbation Current Visit: No Status: Acute Priority: High Code(s): J44.1 - CHRONIC OBSTRUCTIVE PULMONARY DISEASE W (ACUTE) EXACERBATION SNOMED Code(s): 804927984336339 Comment: - Regressed with need for rescue BiPAP 06/19 and 06/20 - Certainly anxiety component, but maybe also mucus plug, etc (see Dr. Enrique's note) - BiPAP available as patient needs - Morphine seems to help greatly - Spiriva daily, PRN Levalbuterol - Prednisone taper, 50 mg 06/20. - Continue azith, ceftri. (2) Chronic respiratory failure with hypoxia Current Visit: No Status: Acute Comment: - End-stage COPD with severe emphysema and hx of lung cancer with suggestion of enlarging nodule. - Now requiring O2 at all times. Using 2-4L NC. - Continue Bevaspi - prednisone taper - Had been considered for hospice before. - Continue Oral morphine and atvian prn (3) Anxiety Current Visit: No Status: Acute Priority: High Code(s): F41.9 - ANXIETY DISORDER, UNSPECIFIED Comment: - Certainly an anxiety component to this presentation. - Add morphine SR 15 mg PO Q8 - Consider increasing ativan -- currently at 0.5 mg PO TID...she has taken 1 mg PO BID in past. (4) History of DVT (deep vein thrombosis) Current Visit: Yes Status: Chronic Priority: High Code(s): Z86.718 - PERSONAL HISTORY OF OTHER VENOUS THROMBOSIS AND EMBOLISM Comment: - Warfarin increased to 3 mg daily. - INR therapeutic (5) Mass of upper lobe of right lung Current Visit: Yes Status: Acute Priority: High Code(s): R91.8 - OTHER NONSPECIFIC ABNORMAL FINDING OF LUNG FIELD Comment: - To rediscuss increasing mass in terms of hospice - palliative care consult. (6) Acute on chronic renal failure Current Visit: No Status: Acute Priority: High Onset Date: 01/10/14 Code (s): N17.9 - ACUTE KIDNEY FAILURE, UNSPECIFIED; N18.9 - CHRONIC KIDNEY DISEASE, UNSPECIFIED SNOMED Code(s): 529055051 Comment: - Cr at admission 1.9 - Now at baseline at ~1.5. Status and Disposition: . Palliative care consult to discuss possible hospice again in context of mildly increasing RUL mass, especially if pt continues to be clinically tenuous.
--- NOTE | 2017-06-21 15:14 | PN ---
Subjective Date of Service: 06/21/17 Interval History: . saw patient mid morning --> Dr. Enrique present. patient feeling much improved. saturation is ok on a few liters Oxygen. denies pain / anxiety at this time but wants assurances she will rapidly get morphine if she experiences distress. I suggested and she accepted standing morphine (oral) and htat will be trialled in the hospital; start with Morphine Sr 15 mg PO Q8... reassess later today or tomorrow AM RN aware of plan may be able to transfer to medical floor later today or tomorrow AM. BiPAP if needed. . Family History: Unchanged from Admission Social History: Unchanged from Admission Past Medical History: Unchanged from Admission Objective Active Medications: . Acetaminophen (Tylenol Tab*) 650 mg PO Q6H PRN PRN Reason: pain/fever Last Admin: 06/20/17 18:53 Dose: 650 mg Aspirin (Aspirin Ec Tab*) 81 mg PO DAILY [facility] Last Admin: 06/21/17 09:44 Dose: 81 mg Calcitriol (Rocaltrol Cap*) 0.25 mcg PO QAM [facility] Last Admin: 06/21/17 09:44 Dose: 0.25 mcg Cinacalcet (Sensipar Tab*) 30 mg PO QAM [facility] Last Admin: 06/21/17 09:44 Dose: 30 mg Enoxaparin Sodium (Lovenox(*)) 70 mg SUBCUT Q24H [facility] (now off) Last Admin: 06/20/17 15:08 Dose: Not Given Guaifenesin (Mucinex*) 600 mg PO BID PRN PRN Reason: CONGESTION Last Admin: 06/19/17 08:20 Dose: 600 mg Ceftriaxone Sodium 1 gm/ (Sodium Chloride) 50 mls @ 200 mls/hr IVPB Q24H [facility] Last Admin: 06/21/17 13:08 Dose: 200 mls/hr Azithromycin 500 mg/ Sodium (Chloride) 250 mls @ 250 mls/hr IVPB Q24H [facility] Last Admin: 06/21/17 09:44 Dose: 250 mls/hr Ipratropium [place] (Atrovent 0.5 Mg Neb.Vesna*) 0.5 mg INH [id number] AWAKE [facility] Last Admin: 06/21/17 12:09 Dose: 0.5 mg Lorazepam (Ativan Tab(*)) 0.5 mg PO TID [facility] Last Admin: 06/21/17 13:08 Dose: 0.5 mg Magnesium Oxide (Magox 400 Tab*) 400 mg PO BID [facility] Last Admin: 06/21/17 09:44 Dose: 400 mg Morphine Sulfate (Morphine Vial*) 4 mg IV Q2H PRN PRN Reason: DISCOMFORT Last Admin: 06/21/17 13:22 Dose: 4 mg Morphine Sulfate (Ms Contin(*)) 15 mg PO Q8H [facility] Last Admin: 06/21/17 09:44 Dose: 15 mg Opium Tincture (Opium Tincture*) 6 mg PO FIVE TIMES DAILY [facility] Last Admin: 06/21/17 13:08 Dose: 6 mg Paroxetine HCl (Paxil Tab*) 30 mg PO QPM [facility] Last Admin: 06/20/17 17:43 Dose: 30 mg Pharmacy Profile Note (Coumadin Daily Reminder*) 0 note FOLLOW UP 1700 [facility] Last Admin: 06/20/17 16:38 Dose: 1 note Prednisone (Deltasone Tab*) 50 mg PO DAILY [facility] Last Admin: 06/21/17 09:44 Dose: 50 mg Sodium Chloride (Sodium Chloride 0.65% Nasal [place]*) 1 spray BOTH NARES Q4H PRN PRN Reason: Dry nasal passages Tiotropium [place] (Spiriva Cap.Inh*) 1 cap INH DAILY [facility] Last Admin: 06/21/17 07:12 Dose: 1 cap Warfarin Sodium (Coumadin Tab(*)) 3 mg PO DAILY@1700 [facility] PRN Reason: Protocol Last Admin: 06/20/17 17:43 Dose: 3 mg Vital Signs - 8 hr 06/21/17 06/21/17 06/21/17 07:13 07:34 07:49 Temperature Pulse Rate 66 73 Respiratory 16 12 18 Rate Blood Pressure 145/89 (mmHg) O2 Sat by Pulse 100 91 Oximetry 06/21/17 06/21/17 06/21/17 08:00 09:00 09:44 Temperature 98.2 F Pulse Rate 73 78 Respiratory 15 17 20 Rate Blood Pressure 154/82 (mmHg) O2 Sat by Pulse 93 98 Oximetry 06/21/17 06/21/17 06/21/17 10:00 11:00 12:00 Temperature Pulse Rate 65 71 63 Respiratory 13 15 14 Rate Blood Pressure (mmHg) O2 Sat by Pulse 97 95 96 Oximetry 06/21/17 06/21/17 06/21/17 12:11 13:00 13:08 Temperature Pulse Rate 65 66 Respiratory 14 15 17 Rate Blood Pressure (mmHg) O2 Sat by Pulse 96 94 Oximetry 06/21/17 06/21/17 06/21/17 13:22 14:00 14:18 Temperature Pulse Rate 66 64 Respiratory 23 14 12 Rate Blood Pressure 140/62 (mmHg) O2 Sat by Pulse 96 96 Oximetry Oxygen Devices in Use Now: BiPAP Appearance: elderly, frail. Ears/Nose/Mouth/Throat: NL Teeth, Lips, Gums Neck: Trachea Midline, No Thyroid Enlargement, Masses Respiratory: Symmetrical Chest Expansion and Respiratory Effort, - - no expremis today Cardiovascular: NL Sounds; No Murmurs; No JVD Abdominal: NL Sounds; No Tenderness; No Distention Lymphatic: No Cervical Adenopathy Extremities: No Edema Skin: No Rash or Ulcers Neurological: Alert and Oriented x 3 Lines/Tubes/Other Access: Clean, Dry and Intact Peripheral IV Nutrition: Taking PO's Result Diagrams: 06/18/17 04:55 06/18/17 04:55 Additional Lab and Data: . Microbiology and Other Data: Microbiology 06/17/17 09:22 Legionella Urinary Antigen - Final Urine Negative Legionella Antigen Streptococcus pneumoniae Ag Screen - Final Negative S. pneumo Antigen Assess/Plan/Problems-Billing . Assessment: 71 yo female with h/o severe COPD, lung cancer (and recurrence), s/p radiation, now with worsening SOB for acute COPD exacerbation and hypoxic respiratory failure Medically complex patient with Crohn's s/p ileostomy with high output, on Opium as antimotility agent GABBY - on BiPAP DNR status - Patient Problems (1) COPD exacerbation Current Visit: No Status: Acute Priority: High Code(s): J44.1 - CHRONIC OBSTRUCTIVE PULMONARY DISEASE W (ACUTE) EXACERBATION SNOMED Code(s): 271483976789457 Comment: - Regressed with need for rescue BiPAP 06/19 and 06/20 - Certainly anxiety component, but maybe also mucus plug, etc (see Dr. Enrique's note) - BiPAP available as patient needs - Morphine seems to help greatly - Spiriva daily, PRN Levalbuterol - Prednisone taper, 50 mg 06/20. - Continue azith, ceftri. (2) Acute and chronic respiratory failure with hypoxia Current Visit: Yes Status: Acute Priority: High Code(s): J96.21 - ACUTE AND CHRONIC RESPIRATORY FAILURE WITH HYPOXIA Comment: - demonstrated elevation in A-a gradient. - BiPAP often needed - certainly acute and chronic HYPOXIC respiratory failure... (3) Chronic respiratory failure with hypoxia Current Visit: No Status: Acute Comment: - End-stage COPD with severe emphysema and hx of lung cancer with suggestion of enlarging nodule. - Now requiring O2 at all times. Using 2-4L NC. - Continue Bevaspi - prednisone taper - Had been considered for hospice before. - Continue Oral morphine and atvian prn (4) Anxiety Current Visit: No Status: Acute Priority: High Code(s): F41.9 - ANXIETY DISORDER, UNSPECIFIED Comment: - Certainly an anxiety component to this presentation. - Add morphine SR 15 mg PO Q8 - Consider increasing ativan -- currently at 0.5 mg PO TID...she has taken 1 mg PO BID in past. (5) History of DVT (deep vein thrombosis) Current Visit: Yes Status: Chronic Priority: High Code(s): Z86.718 - PERSONAL HISTORY OF OTHER VENOUS THROMBOSIS AND EMBOLISM Comment: - Warfarin increased to 3 mg daily. - INR therapeutic (6) Mass of upper lobe of right lung Current Visit: Yes Status: Acute Priority: High Code(s): R91.8 - OTHER NONSPECIFIC ABNORMAL FINDING OF LUNG FIELD Comment: - To rediscuss increasing mass in terms of hospice - palliative care consult. - Lung cancer. (7) Acute on chronic renal failure Current Visit: No Status: Acute Priority: High Onset Date: 01/10/14 Code (s): N17.9 - ACUTE KIDNEY FAILURE, UNSPECIFIED; N18.9 - CHRONIC KIDNEY DISEASE, UNSPECIFIED SNOMED Code(s): 577829894 Comment: - Cr at admission 1.9 - Now at baseline at ~1.5. Status and Disposition: . Palliative care consult to discuss possible hospice again in context of mildly increasing RUL mass, especially if pt continues to be clinically tenuous.
[2017-06-21] MEDS: Enoxaparin(*) 80 MG/0.8 ML SYR SUBCUT SCH (16:42)
[2017-06-21] MEDS: PARoxetine HCL TAB* 10 MG PO SCH (17:26)
[2017-06-21] MEDS: Warfarin TAB(*) 3 MG PO SCH (17:27)
[2017-06-21] MEDS: Acetaminophen TAB* 325 MG PO PRN (19:12)
[2017-06-22] MEDS: Ipratropium 0.5MG/2.5ML NEB* 0.5 MG/2.5 ML NEB.SOLN INH SCH ×4 (01:11→19:57)
[2017-06-22] MEDS: Morphine TAB Extended Release (*) 15 MG TAB.ER PO SCH ×3 (02:07→17:18)
[2017-06-22] MEDS: Morphine VIAL* 4 MG/ML VIAL (1 ml vial) IV PRN ×4 (05:10→16:33)
[2017-06-22 05:35] LABS: Hematocrit 32 % (35-47); Hemoglobin 10.6 g/dl (12.0-16.0); Mean Corpuscular HGB Conc 33 g/dl (31-36); Mean Corpuscular Hemoglobin 31 pg (27-31); Mean Corpuscular Volume 94 fL (80-97); Mean Platelet Volume 7.3 um3 (7.4-10.4); Platelet Count 279 10^3/ul (150-450); Red Blood Count 3.43 10^6/ul (4.0-5.4); Red Cell Distribution Width 15 % (10.5-15); White Blood Count 10.6 10^3/ul (3.5-10.8)
[2017-06-22 05:51] LABS: EGFR Non-African American 34.8 (>60)
[2017-06-22] MEDS: Opium Tincture* 6 MG/0.6 ML ORAL.LIQ SYRINGE PO SCH ×5 (06:43→22:14)
[2017-06-22] MEDS ORDERED: NS 0.9% 1000 ML* 1,000 ML IV ONE (06:58)
[2017-06-22 06:59] LABS: ABS Basophils 0.1 10^3/ul (0-0.2); ABS Eosinophils 0 10^3/ul (0-0.6); ABS Lymphocytes 1.2 10^3/ul (1.0-4.8); ABS Monocytes 0.8 10^3/ul (0-0.8); ABS Neutrophils 8.2 10^3/ul (1.5-7.7); ABS Nucleated RBC 0 10^3/ul; Eosinophil % 0.1 % (0-6); Lymphocyte % 11.9 % (25-47); Nucleated Red Blood Cells % 0.1
[2017-06-22] MEDS: Tiotropium CAP.INH* CAP.INH/18 MCG (USE ORDER SET !) INH SCH (07:11)
[2017-06-22] MEDS: Aspirin EC TAB* 81 MG TAB.EC PO SCH (07:23)
[2017-06-22] MEDS: LORazepam TAB(*) 1 MG PO SCH ×3 (07:23→22:14)
[2017-06-22] MEDS: Calcitriol CAP* 0.25 MCG PO SCH (07:23)
[2017-06-22] MEDS: Cinacalcet TAB* 30 MG PO SCH (07:23)
[2017-06-22] MEDS: Magnesium Oxide TAB* 400 MG PO SCH ×2 (07:23→22:14)
[2017-06-22] MEDS: predniSONE TAB* 50 MG PO SCH (07:23)
[2017-06-22] MEDS ORDERED: predniSONE TAB* 50 MG PO SCH (09:00)
[2017-06-22] MEDS: Azithromycin IV(*) 500 MG in NS 0.9% 250 ML* 250 ML IVPB SCH (10:33)
[2017-06-22] MEDS: cefTRIAXone(*) 1 GM in NS 0.9% 50 ML* 50 ML IVPB SCH (12:07)
[2017-06-22] MEDS: PARoxetine HCL TAB* 10 MG PO SCH (17:18)
[2017-06-22] MEDS: Warfarin TAB(*) 3 MG PO SCH (17:18)
--- NOTE | 2017-06-22 20:01 | PN ---
Subjective Date of Service: 06/22/17 Interval History: . did well overnight. transferred to mid morning. morphine SR 15 TID helping greatly as per patient. titrating prednisone down... PT evaluation agreed to lab holiday on 06/23/17 Family History: Unchanged from Admission Social History: Unchanged from Admission Past Medical History: Unchanged from Admission Objective Active Medications: . Acetaminophen (Tylenol Tab*) 650 mg PO Q6H PRN PRN Reason: pain/fever Last Admin: 06/21/17 19:12 Dose: 650 mg Aspirin (Aspirin Ec Tab*) 81 mg PO DAILY [facility] Last Admin: 06/22/17 07:23 Dose: 81 mg Calcitriol (Rocaltrol Cap*) 0.25 mcg PO QAM [facility] Last Admin: 06/22/17 07:23 Dose: 0.25 mcg Cinacalcet (Sensipar Tab*) 30 mg PO QAM [facility] Last Admin: 06/22/17 07:23 Dose: 30 mg Guaifenesin (Mucinex*) 600 mg PO BID PRN PRN Reason: CONGESTION Last Admin: 06/19/17 08:20 Dose: 600 mg Ceftriaxone Sodium 1 gm/ (Sodium Chloride) 50 mls @ 200 mls/hr IVPB Q24H [facility] Last Admin: 06/22/17 12:07 Dose: 200 mls/hr Azithromycin 500 mg/ Sodium (Chloride) 250 mls @ 250 mls/hr IVPB Q24H [facility] Last Admin: 06/22/17 10:33 Dose: 250 mls/hr Ipratropium [place] (Atrovent 0.5 Mg Neb.Vesna*) 0.5 mg INH [id number] AWAKE [facility] Last Admin: 06/22/17 12:19 Dose: 0.5 mg Lorazepam (Ativan Tab(*)) 0.5 mg PO TID [facility] Last Admin: 06/22/17 13:34 Dose: 0.5 mg Magnesium Oxide (Magox 400 Tab*) 400 mg PO BID [facility] Last Admin: 06/22/17 07:23 Dose: 400 mg Morphine Sulfate (Morphine Vial*) 4 mg IV Q2H PRN PRN Reason: DISCOMFORT Last Admin: 06/22/17 16:33 Dose: 4 mg Morphine Sulfate (Ms Contin(*)) 15 mg PO Q8H [facility] Last Admin: 06/22/17 17:18 Dose: 15 mg Opium Tincture (Opium Tincture*) 6 mg PO FIVE TIMES DAILY [facility] Last Admin: 06/22/17 17:18 Dose: 6 mg Paroxetine HCl (Paxil Tab*) 30 mg PO QPM [facility] Last Admin: 06/22/17 17:18 Dose: 30 mg Pharmacy Profile Note (Coumadin Daily Reminder*) 0 note FOLLOW UP 1700 [facility] Last Admin: 06/22/17 17:18 Dose: 1 note Prednisone (Deltasone Tab*) 40 mg PO DAILY [facility] Last Admin: 06/22/17 07:23 Dose: 50 mg Sodium Chloride (Sodium Chloride 0.65% Nasal [place]*) 1 spray BOTH NARES Q4H PRN PRN Reason: Dry nasal passages Tiotropium [place] (Spiriva Cap.Inh*) 1 cap INH DAILY [facility] Last Admin: 06/22/17 07:11 Dose: 1 cap Warfarin Sodium (Coumadin Tab(*)) 3 mg PO DAILY@1700 [facility] PRN Reason: Protocol Last Admin: 06/22/17 17:18 Dose: 3 mg . Vital Signs - 8 hr 06/22/17 06/22/17 06/22/17 12:24 12:36 13:34 Temperature Pulse Rate 68 Respiratory 18 22 20 Rate Blood Pressure (mmHg) O2 Sat by Pulse 98 Oximetry 06/22/17 06/22/17 06/22/17 13:40 14:55 15:38 Temperature Pulse Rate Respiratory 20 20 22 Rate Blood Pressure (mmHg) O2 Sat by Pulse Oximetry Oxygen Devices in Use Now: High Flow Nasal Cannula Appearance: NAD Eyes: No Scleral Icterus Ears/Nose/Mouth/Throat: NL Teeth, Lips, Gums, Clear Oropharnyx Neck: NL Appearance and Movements; NL JVP, Trachea Midline Respiratory: Symmetrical Chest Expansion and Respiratory Effort Cardiovascular: NL Sounds; No Murmurs; No JVD Abdominal: NL Sounds; No Tenderness; No Distention, - - ostomy unchanged Lymphatic: No Cervical Adenopathy Extremities: No Edema Skin: No Rash or Ulcers Neurological: Alert and Oriented x 3 Lines/Tubes/Other Access: Clean, Dry and Intact Peripheral IV Nutrition: Taking PO's Result Diagrams: 06/22/17 05:21 06/22/17 05:21 Additional Lab and Data: . Microbiology and Other Data: Microbiology 06/17/17 09:22 Legionella Urinary Antigen - Final Urine Negative Legionella Antigen Streptococcus pneumoniae Ag Screen - Final Negative S. pneumo Antigen Assess/Plan/Problems-Billing . Assessment: 71 yo female with h/o severe COPD, lung cancer (and recurrence), s/p radiation, now with worsening SOB for acute COPD exacerbation and hypoxic respiratory failure Medically complex patient with Crohn's s/p ileostomy with high output, on Opium as antimotility agent GABBY - on BiPAP DNR status - Patient Problems (1) COPD exacerbation Current Visit: No Status: Acute Priority: High Code(s): J44.1 - CHRONIC OBSTRUCTIVE PULMONARY DISEASE W (ACUTE) EXACERBATION SNOMED Code(s): 121448249844487 Comment: - Regressed with need for rescue BiPAP 06/19 and 06/20 - Certainly anxiety component, but maybe also mucus plug, etc (see Dr. Enrique's note) - BiPAP available as patient needs - Morphine seems to help greatly - Spiriva daily, PRN Levalbuterol - Prednisone taper, 40 mg 06/22. - Continue azith, ceftri. (2) Acute and chronic respiratory failure with hypoxia Current Visit: Yes Status: Acute Priority: High Code(s): J96.21 - ACUTE AND CHRONIC RESPIRATORY FAILURE WITH HYPOXIA Comment: - demonstrated elevation in A-a gradient. - BiPAP often needed - certainly acute and chronic HYPOXIC respiratory failure... (3) Chronic respiratory failure with hypoxia Current Visit: No Status: Acute Comment: - End-stage COPD with severe emphysema and hx of lung cancer with suggestion of enlarging nodule. - Now requiring O2 at all times. Using 2-4L NC. - Continue Bevaspi - prednisone taper - Had been considered for hospice before. - Continue Oral morphine and atvian prn (4) Anxiety Current Visit: No Status: Acute Priority: High Code(s): F41.9 - ANXIETY DISORDER, UNSPECIFIED Comment: - Certainly an anxiety component to this presentation. - Add morphine SR 15 mg PO Q8 - Consider increasing ativan -- currently at 0.5 mg PO TID...she has taken 1 mg PO BID in past. (5) History of DVT (deep vein thrombosis) Current Visit: Yes Status: Chronic Priority: High Code(s): Z86.718 - PERSONAL HISTORY OF OTHER VENOUS THROMBOSIS AND EMBOLISM Comment: - Warfarin increased to 3 mg daily. - INR therapeutic (6) Mass of upper lobe of right lung Current Visit: Yes Status: Acute Priority: High Code(s): R91.8 - OTHER NONSPECIFIC ABNORMAL FINDING OF LUNG FIELD Comment: - To rediscuss increasing mass in terms of hospice - palliative care consult. - Lung cancer. (7) Acute on chronic renal failure Current Visit: No Status: Acute Priority: High Onset Date: 01/10/14 Code (s): N17.9 - ACUTE KIDNEY FAILURE, UNSPECIFIED; N18.9 - CHRONIC KIDNEY DISEASE, UNSPECIFIED SNOMED Code(s): 699176396 Comment: - Cr at admission 1.9 - Now at baseline at ~1.5. Status and Disposition: . Palliative care consult to discuss possible hospice again in context of mildly increasing RUL mass, especially if pt continues to be clinically tenuous.
[2017-06-22] MEDS ORDERED: Clotrimazole TROCHE* 10 MG TROCHE PO ONE (22:17)
[2017-06-23] MEDS: Ipratropium 0.5MG/2.5ML NEB* 0.5 MG/2.5 ML NEB.SOLN INH SCH ×4 (01:29→19:40)
[2017-06-23] MEDS: Morphine TAB Extended Release (*) 15 MG TAB.ER PO SCH ×3 (01:43→17:50)
[2017-06-23] MEDS: Acetaminophen TAB* 325 MG PO PRN (01:45)
[2017-06-23] MEDS: Opium Tincture* 6 MG/0.6 ML ORAL.LIQ SYRINGE PO SCH ×5 (06:26→21:20)
[2017-06-23] MEDS: Morphine VIAL* 4 MG/ML VIAL (1 ml vial) IV PRN (06:26)
[2017-06-23] MEDS: Tiotropium CAP.INH* CAP.INH/18 MCG (USE ORDER SET !) INH SCH (08:24)
[2017-06-23] MEDS ORDERED: predniSONE TAB* 50 MG PO SCH (09:00)
--- NOTE | 2017-06-23 09:03 | PN ---
Subjective Date of Service: 06/23/17 Interval History: Patient sleeping all morning on Bipap refused to get up this morning per nurse and RT, which has she has been refusing to get OOB on a daily basis. On exam pt reports she usually sleeps between 1a & 1pm and "sleeps in" everyday and wants PT to come in the afternoon. Patient states today " I will get OOB in a couple days" as well as "Dont send me to rehab". I discussed at length with the patient the risk of not getting OOB and encouraged her to work with PT, which at this point she agrees to get OOB today and sit in a chair. She denies SOB/ CP. She reports good appetite. No fevers or chills. Continues to have a cough, not really bringing up much sputum. She is not sure which direction she wants to go in regards to her lung mass as she would like to follow up with her ONC Dr. Mora and Dr. Wang (she was supposed to see last week but did not make the appointment). At this point she wants to put Hospice on hold. Family History: Unchanged from Admission Social History: Unchanged from Admission Past Medical History: Unchanged from Admission Objective Active Medications: Acetaminophen (Tylenol Tab*) 650 mg PO Q6H PRN PRN Reason: pain/fever Last Admin: 06/23/17 01:45 Dose: 325 mg Aspirin (Aspirin Ec Tab*) 81 mg PO DAILY [facility] Last Admin: 06/22/17 07:23 Dose: 81 mg Calcitriol (Rocaltrol Cap*) [facility] Last Admin: 06/22/17 07:23 Dose: 0.25 mcg Cinacalcet (Sensipar Tab*) 30 mg PO QAM [facility] Last Admin: 06/22/17 07:23 Dose: 30 mg Guaifenesin (Mucinex*) 600 mg PO BID PRN PRN Reason: CONGESTION Last Admin: 06/19/17 08:20 Dose: 600 mg Ceftriaxone Sodium 1 gm/ (Sodium Chloride) 50 mls @ 200 mls/hr IVPB Q24H [facility] Last Admin: 06/22/17 12:07 Dose: 200 mls/hr Azithromycin 500 mg/ Sodium (Chloride) 250 mls @ 250 mls/hr IVPB Q24H [facility] Last Admin: 04/29/18 10:33 Dose: 250 mls/hr Ipratropium [place] (Atrovent 0.5 Mg Neb.Vesna*) 0.5 mg INH [id number] AWAKE [facility] Last Admin: 06/23/17 08:16 Dose: 0.5 mg Lorazepam (Ativan Tab(*)) 0.5 mg PO TID [facility] Last Admin: 06/22/17 22:14 Dose: 0.5 mg Magnesium Oxide (Magox 400 Tab*) 400 mg PO BID [facility] Last Admin: 06/22/17 22:14 Dose: 400 mg Morphine Sulfate (Morphine Vial*) 4 mg IV Q2H PRN PRN Reason: DISCOMFORT Last Admin: 06/23/17 06:26 Dose: 4 mg Morphine Sulfate (Ms Contin(*)) 15 mg PO Q8H [facility] Last Admin: 06/23/17 01:43 Dose: 15 mg Opium Tincture (Opium Tincture*) 6 mg PO FIVE TIMES DAILY [facility] Last Admin: 06/23/17 06:26 Dose: 6 mg Paroxetine HCl (Paxil Tab*) 30 mg PO QPM [facility] Last Admin: 06/22/17 17:18 Dose: 30 mg Pharmacy Profile Note (Coumadin Daily Reminder*) 0 note FOLLOW UP 1700 [facility] Last Admin: 06/22/17 17:18 Dose: 1 note Prednisone (Deltasone Tab*) 40 mg PO 0900 [facility] Sodium Chloride (Sodium Chloride 0.65% Nasal [place]*) 1 spray BOTH NARES Q4H PRN PRN Reason: Dry nasal passages Tiotropium [place] (Spiriva Cap.Inh*) 1 cap INH DAILY [facility] Last Admin: 06/23/17 08:24 Dose: Not Given Warfarin Sodium (Coumadin Tab(*)) 3 mg PO DAILY@1700 [facility] PRN Reason: Protocol Last Admin: 06/22/17 17:18 Dose: 3 mg Vital Signs - 8 hr 06/23/17 06/23/17 06/23/17 01:43 04:07 06:26 Temperature 97.6 F Pulse Rate 72 Respiratory 18 16 16 Rate Blood Pressure 157/65 (mmHg) O2 Sat by Pulse 98 Oximetry 06/23/17 06/23/17 07:23 08:20 Temperature 97.9 F Pulse Rate 59 59 Respiratory 15 16 Rate Blood Pressure 148/62 (mmHg) O2 Sat by Pulse 100 98 Oximetry Oxygen Devices in Use Now: Nasal Cannula Appearance: chronically ill female laying in bed in NAD. A+O x3 Eyes: No Scleral Icterus, PERRLA Ears/Nose/Mouth/Throat: NL Teeth, Lips, Gums, Mucous Membranes Moist Neck: NL Appearance and Movements; NL JVP Respiratory: Symmetrical Chest Expansion and Respiratory Effort, - - diminished b/l Cardiovascular: NL Sounds; No Murmurs; No JVD, RRR, No Edema Abdominal: NL Sounds; No Tenderness; No Distention, - - obese. Ileostomy draining brown thin stool. Extremities: No Edema, No Clubbing, Cyanosis Skin: No Rash or Ulcers, No Nodules or Sclerosis Neurological: Alert and Oriented x 3, NL Sensation, NL Muscle Strength and Tone Lines/Tubes/Other Access: Clean, Dry and Intact Peripheral IV Nutrition: Taking PO's Result Diagrams: 06/22/17 05:21 06/22/17 05:21 Additional Lab and Data: . Microbiology and Other Data: Microbiology 06/17/17 09:22 Legionella Urinary Antigen - Final Urine Negative Legionella Antigen Streptococcus pneumoniae Ag Screen - Final Negative S. pneumo Antigen Assess/Plan/Problems-Billing . Assessment: 71 yo female with h/o severe COPD, lung cancer (and recurrence), s/p radiation, now with worsening SOB for acute COPD exacerbation and hypoxic respiratory failure Medically complex patient with Crohn's s/p ileostomy with high output, on Opium as antimotility agent - Patient Problems (1) Acute and chronic respiratory failure with hypoxia Comment: - End-stage COPD with severe emphysema and hx of lung cancer with suggestion of enlarging nodule. - demonstrated elevation in A-a gradient. - BiPAP often needed - certainly acute and chronic HYPOXIC respiratory failure - improving on Bipap - Efrain following (2) COPD exacerbation Comment: - Regressed with need for rescue BiPAP 06/19 and 06/20 - Certainly anxiety component, but maybe also mucus plug, etc (see Dr. Enrique's note) - BiPAP available as patient needs - Morphine seems to help greatly - Spiriva daily, PRN Levalbuterol - Prednisone taper, 40 mg 06/23. - DC azith, ceftri - 6 day course. (3) Mass of upper lobe of right lung Comment: - Lung cancer - increasing mass on CT. follows with Dr. Wang/Dr. Mora - Pt wants to f/u with Onc/Onc Radiology to discuss further options prior to deciding hospice (4) Crohn's disease Comment: S/P ileostomy with hx of high oupt - Continue home dose tincture of opium (5) History of DVT (deep vein thrombosis) Comment: - Warfarin increased to 3 mg daily. - INR therapeutic (6) Acute on chronic renal failure Comment: - Cr at admission 1.9 - Now at baseline at ~1.5. (7) Anxiety Comment: - Certainly an anxiety component to this presentation. - Add morphine SR 15 mg PO Q8 - Continue Ativan 0.5 mg PO TID (8) DNR (do not resuscitate) (9) DVT prophylaxis Comment: - Warfarin Status and Disposition: . Palliative care consult to discuss possible hospice again in context of mildly increasing RUL mass, especially if pt continues to be clinically tenuous.
[2017-06-23] MEDS ORDERED: predniSONE TAB* 20 MG PO SCH (09:41)
[2017-06-23] MEDS: LORazepam TAB(*) 1 MG PO SCH ×3 (09:51→21:20)
[2017-06-23] MEDS: Aspirin EC TAB* 81 MG TAB.EC PO SCH (09:53)
[2017-06-23] MEDS: Magnesium Oxide TAB* 400 MG PO SCH ×2 (09:56→21:20)
[2017-06-23] MEDS: Calcitriol CAP* 0.25 MCG PO SCH (09:56)
[2017-06-23] MEDS: Cinacalcet TAB* 30 MG PO SCH (09:56)
--- NOTE | 2017-06-23 17:02 | PN ---
Progress Note - Progress Note Date of Service: 06/23/17 - Pulm f/u note Note: Pt seen and examined at bedside. Pt is sitting up in chair eating lunch. Reports improvement in breathing. Cough is productive of thick phleghm. Morphine is very helpful. Reports dry nasal passages Active Medications Generic Name Dose Route Start Last Admin Trade Name Freq PRN Reason Stop Dose Admin Acetaminophen 650 mg 06/16/17 14:18 06/23/17 01:45 Tylenol Tab* PO 325 mg Q6H PRN Administration pain/fever Aspirin 81 mg 06/17/17 09:00 06/23/17 09:53 Aspirin Ec Tab* PO 81 mg DAILY [facility] Administration Calcitriol 0.25 mcg 06/17/17 09:00 06/23/17 09:56 Rocaltrol Cap* PO 0.25 mcg QAM [facility] Administration Cinacalcet 30 mg 06/17/17 09:00 06/23/17 09:56 Sensipar Tab* PO 30 mg QAM [facility] Administration Fluticasone Propionate 2 spray 06/24/17 09:00 Flonase Nasal [place] 50mcg* BOTH NARES DAILY [facility] Guaifenesin 600 mg 06/16/17 14:18 06/19/17 08:20 Mucinex* PO 600 mg BID PRN Administration CONGESTION Ipratropium [place] 0.5 mg 06/18/17 13:00 06/23/17 13:38 Atrovent 0.5 Mg Neb.Vesna* INH 0.5 mg [id number] AWAKE [facility] Administration Lorazepam 0.5 mg 06/16/17 21:00 06/23/17 14:51 Ativan Tab(*) PO 0.5 mg TID [facility] Administration Magnesium Oxide 400 mg 06/16/17 21:00 06/23/17 09:56 Magox 400 Tab* PO 400 mg BID [facility] Administration Morphine Sulfate 15 mg 06/21/17 10:00 06/23/17 09:53 Ms Contin(*) PO 15 mg Q8H [facility] Administration Opium Tincture 6 mg 06/20/17 18:00 06/23/17 14:51 Opium Tincture* PO 6 mg FIVE TIMES DAILY [facility] Administration Paroxetine HCl 30 mg 06/16/17 18:00 06/22/17 17:18 Paxil Tab* PO 30 mg QPM [facility] Administration Pharmacy Profile Note 0 note 06/20/17 17:00 06/22/17 17:18 Coumadin Daily Reminder* FOLLOW UP 1 note 1700 [facility] Administration Prednisone 40 mg 06/23/17 09:41 Deltasone Tab* PO 0900 [facility] Sodium Chloride 1 spray 06/17/17 16:53 Sodium Chloride 0.65% Nasal [place]* BOTH NARES Q4H PRN Dry nasal passages Tiotropium [place] 1 cap 06/17/17 09:00 06/23/17 08:24 Spiriva Cap.Inh* INH Not Given DAILY [facility] Warfarin Sodium 3 mg 06/16/17 17:00 06/22/17 17:18 Coumadin Tab(*) PO 3 mg DAILY@1700 [facility] Administration Protocol Vital Signs Temp Pulse Resp BP Pulse Ox 97.9 F 72 16 139/72 99 06/23/17 15:11 06/23/17 15:11 06/23/17 15:11 06/23/17 15:11 06/23/17 15:11 O/E: Pt in NAD, in good spirits today HEENT: PERRLA, No JVD Lungs: Diminished air entry b/l, scattered wheeze + CVS: S1, S2+ Abd: Soft, BS+ Ext:Trace edema +, no tenderness to palpation Skin: Ecchymosis + in UE Neuro: Drowsy, awakes to verbal stimuli, is oriented x3 Labs: No new labs I/R: 71 y o f with h/o severe COPD, lung cancer with recurrence, underwent XRT, [place] s/p ileostomy with high out put, GABBY on CPAP a/w worsening SOB for acute COPD exacerbation Improved since admission Is not sleepy anymore Morphine working better for her breathing c/w nebs Reports dry nose from O2 usage Saline nasal spray not helpful Will order Flonase Having thick phleghm, using flutter device c/w BiPAP at night Will c/w prednisone taper She is also on Opium for high out put ileostomy Pt consented for DNR status Her significant other Nikki is her HCP, she is currently in [place], will be returning tomorrow Recurrent lung cancer s/p XRT, progressing as per imaging findings Pt to f/u with Dr Wang She is not hypoxic on 2-3L O2 Overall prognosis is guarded D/w Yessica Beck NP
[2017-06-23] MEDS: PARoxetine HCL TAB* 10 MG PO SCH (17:50)
[2017-06-23] MEDS: Warfarin TAB(*) 3 MG PO SCH (17:51)
--- NOTE | 2017-06-23 19:47 | CONSULT ---
Palliative / Hospice Consult Ordering Provider: Nahid Angel - Subjective Code Status: DNR Advance Directives Location: In Chart MOLST Part A Completed: Yes - DNR MOLST Part E Completed:: Yes - DNI HCP Completed: Yes - Partner Mathew Okeefe - History or Present Illness History or Present Illness: This 71 year old woman with longstanding COPD was on hospice services 5 years ago when she was found to have lung cancer with presumed bone metastases, but was then found to have no metastatic disease. SHe underwent readiation therapy to the RUL mass at that time. She was reevaluated for hospice again one year ago after a hospitalization for COPD exacerbation. At the time she was stable on 3.5 L O2, with no evidence of right heart failure or cor pulmonale. Her right lung was found to have a recurrent nodule (0.8 cm) but the patient refused biopsy, and an oncologist in [place] told her she had nothing to worry about and should return for a recheck in 2 years. Meanwhile, her pulmonary function has deteriorated further, with 3 hospitalizations for COPD and sepsis in the past year. She also has GABBY on CPAP at home with which she is not compliant, and she continues to smoke. She has additional PMH of Crohn's disease with ileostomy productive of copious liquid stool for which she uses opium. She has been using MSO4 for dyspnea with good effect. At this point, when I saw her today in the presence of her , the patient stated she was thinking of reversing her DNR/DNI status, and wanted to see Dr. Wang for consideration of radiation therapy to the right lung mass, which has enlarged since last CT in 2016. We discussed goals of care and advance directives. Her last PFTs in June 2016 showed an FVC of 91% predicted, and FEV1 of 56% predicted. Her echocardiogram on this admission did not demonstrate pulmonary hypertension, and her EF was 56%. At home, she is chronically on 3.5 L O2. Lab Values: Laboratory Last Values WBC 10.6 10^3/ul (3.5-10.8) 06/22/17 05:21 RBC 3.43 10^6/ul (4.0-5.4) L 06/22/17 05:21 Hgb 10.6 g/dl (12.0-16.0) L 06/22/17 05:21 Hct 32 % (35-47) L 06/22/17 05:21 MCV 94 fL (80-97) 06/22/17 05:21 MCH 31 pg (27-31) 06/22/17 05:21 MCHC 33 g/dl (31-36) 06/22/17 05:21 RDW 15 % (10.5-15) 06/22/17 05:21 Plt Count 279 10^3/ul (150-450) 06/22/17 05:21 MPV 7.3 um3 (7.4-10.4) L 06/22/17 05:21 Neut % (Auto) 79.0 % (38-83) 06/22/17 05:21 Lymph % (Auto) 11.9 % (25-47) L 06/22/17 05:21 Vermilion % (Auto) 8.1 % (0-7) H 06/22/17 05:21 Eos % (Auto) 0.1 % (0-6) 06/22/17 05:21 Baso % (Auto) 0.9 % (0-2) 06/22/17 05:21 Absolute Neuts (auto) 8.2 10^3/ul (1.5-7.7) H 06/22/17 05:21 Absolute Lymphs (auto) 1.2 10^3/ul (1.0-4.8) 06/22/17 05:21 Absolute Monos (auto) 0.8 10^3/ul (0-0.8) 06/22/17 05:21 Absolute Eos (auto) 0 10^3/ul (0-0.6) 06/22/17 05:21 Absolute Basos (auto) 0.1 10^3/ul (0-0.2) 06/22/17 05:21 Absolute Nucleated RBC 0 10^3/ul 06/22/17 05:21 Neutrophils % 73 % (38-83) 06/16/17 09:46 Lymphocytes % 14 % (25-47) L 06/16/17 09:46 Reactive Lymphs % 3 % (0-6) 06/16/17 09:46 Monocytes % 7 % (0-7) 06/16/17 09:46 Eosinophils % 3 % (0-6) 06/16/17 09:46 Basophils % 0 % (0-2) 06/16/17 09:46 Nucleated RBC % 0.1 06/22/17 05:21 Abs Neuts (Manual) 7.7 10^3/ul (1.5-7.7) 06/16/17 09:46 Abs Lymphs (Manual) 1.5 10^3/ul (1.0-4.8) 06/16/17 09:46 Abs Monocytes (Manual) 0.7 10^3/ul (0-0.8) 06/16/17 09:46 Absolute Eos (Manual) 0.3 10^3/ul (0-0.6) 06/16/17 09:46 Abs Basophils (Manual) 0 10^3/ul (0-0.2) 06/16/17 09:46 Normal RBC Morphology Normal (Normal) 06/16/17 09:46 Hem Pathologist Commnt 06/16/17 09:46 INR (Anticoag Therapy) 2.59 (0.77-1.02) H 06/21/17 07:44 APTT 29.3 seconds (26.0-36.3) 06/16/17 09:46 D-Dimer, Quantitative 240 ng/mL (Less Than 230) H 06/16/17 09:46 Patient Temperature Not Reportable 06/19/17 17:50 ABG pH 7.41 (7.35-7.45) 06/19/17 17:50 ABG pH (Temp Correct) Not Reportable 06/19/17 17:50 ABG pCO2 57 mmHg (35-45) H 06/19/17 17:50 ABG pCO2 (Temp Corrct Not Reportable 06/19/17 17:50 ABG pO2 157 mmHg (80-100) H 06/19/17 17:50 ABG pO2 (Temp Correct Not Reportable 06/19/17 17:50 ABG HCO3 32.6 mmol/L (19-31) H 06/19/17 17:50 ABG O2 Saturation 99.5 % (95-98) H 06/19/17 17:50 ABG Base Excess 9.8 (-2.0-2.0) H 06/19/17 17:50 Respiration Rate Not Reportable 06/19/17 17:50 O2 Delivery Device n/c 06/17/17 17:40 Ventilator Type Not Reportable 06/19/17 17:50 Vent Mode Not Reportable 06/19/17 17:50 FiO2 40 06/19/17 17:50 Inspiratory Time Not Reportable 06/19/17 17:50 PEEP Not Reportable 06/19/17 17:50 Pressure Support Not Reportable 06/19/17 17:50 Pressure Control Not Reportable 06/19/17 17:50 EPAP Not Reportable 06/19/17 17:50 IPAP Not Reportable 06/19/17 17:50 BiPAP Not Reportable 06/19/17 17:50 Sodium 139 mmol/L (139-145) 06/22/17 05:21 Potassium 4.5 mmol/L (3.5-5.0) 06/22/17 05:21 Chloride 98 mmol/L (101-111) L 06/22/17 05:21 Carbon Dioxide 36 mmol/L (22-32) H 06/22/17 05:21 Anion Gap 5 mmol/L (2-11) 06/22/17 05:21 BUN 34 mg/dL (6-24) H 06/22/17 05:21 Creatinine 1.47 mg/dL (0.51-0.95) H 06/22/17 05:21 Est GFR ( Amer) 44.8 (>60) 06/22/17 05:21 Est GFR (Non-Af Amer) 34.8 (>60) 06/22/17 05:21 BUN/Creatinine Ratio 23.1 (8-20) H 06/22/17 05:21 Glucose 139 mg/dL (70-100) H 06/22/17 05:21 Lactic Acid 1.7 mmol/L (0.5-2.0) 06/16/17 10:40 Calcium 8.1 mg/dL (8.6-10.3) L 06/22/17 05:21 Phosphorus 3.2 mg/dL (2.5-5.0) 06/22/17 05:21 Magnesium 1.9 mg/dL (1.9-2.7) 06/22/17 05:21 Total Bilirubin 0.30 mg/dL (0.2-1.0) 06/22/17 05:21 Direct Bilirubin 0.10 mg/dL (0.03-0.18) 06/22/17 05:21 Indirect Bilirubin 0.2 mg/dL (0.3-1.0) L 06/22/17 05:21 AST 25 U/L (13-39) 06/22/17 05:21 ALT 46 U/L (7-52) 06/22/17 05:21 Alkaline Phosphatase 51 U/L (34-104) 06/22/17 05:21 Ammonia 38 mcmol/L (16-53) 06/16/17 09:46 CK-MB (CK-2) 5.7 ng/mL (0.6-6.3) 06/16/17 09:46 Troponin I 0.05 ng/mL (<0.04) H* 06/18/17 04:55 C-Reactive Protein 4.77 mg/L (< 5.00) 06/16/17 09:46 B-Natriuretic Peptide 113 pg/mL (-100) H 06/16/17 09:46 Total Protein 5.7 g/dL (6.4-8.9) L 06/22/17 05:21 Albumin 3.2 g/dL (3.2-5.2) 06/22/17 05:21 Globulin 2.5 g/dL (2-4) 06/22/17 05:21 Albumin/Globulin Ratio 1.3 (1-3) 06/22/17 05:21 Lipase 29 U/L (11.0-82.0) 06/16/17 09:46 TSH 1.30 mcIU/mL (0.34-5.60) 06/16/17 09:46 Urine Color Yellow 06/17/17 09:22 Urine Appearance Clear 06/17/17 09:22 Urine pH 6.0 (5-9) 06/17/17 09:22 Ur Specific Mentor 1.018 (1.010-1.030) 06/17/17 09:22 Urine Protein Negative (Negative) 06/17/17 09:22 Urine Ketones Negative (Negative) 06/17/17 09:22 Urine Blood Negative (Negative) 06/17/17 09:22 Urine Nitrate Negative (Negative) 06/17/17 09:22 Urine Bilirubin Negative (Negative) 06/17/17 09:22 Urine Urobilinogen Negative (Negative) 06/17/17 09:22 Ur Leukocyte Esterase Trace (Negative) A 06/17/17 09:22 Urine WBC (Auto) Trace(0-5/hpf) (Absent) 06/17/17 09:22 Urine RBC (Auto) 1+(3-5/hpf) (Absent) A 06/17/17 09:22 Ur Squamous Epith Cells Present (Absent) A 06/17/17 09:22 Urine Bacteria Absent (Absent) 06/17/17 09:22 Urine Glucose Negative (Negative) 06/17/17 09:22 Urine Ascorbic Acid * (Negative) A 06/17/17 09:22 Acetaminophen < 15 mcg/mL 06/16/17 09:46 Serum Alcohol < 10 mg/dL (<10) 06/16/17 09:46 - Objective Active Medications: Acetaminophen (Tylenol Tab*) 650 mg PO Q6H PRN PRN Reason: pain/fever Last Admin: 06/23/17 01:45 Dose: 325 mg Aspirin (Aspirin Ec Tab*) 81 mg PO DAILY [facility] Last Admin: 06/23/17 09:53 Dose: 81 mg Calcitriol (Rocaltrol Cap*) 0.25 mcg PO QAM [facility] Last Admin: 06/23/17 09:56 Dose: 0.25 mcg Cinacalcet (Sensipar Tab*) 30 mg PO QAM [facility] Last Admin: 06/23/17 09:56 Dose: 30 mg Fluticasone Propionate (Flonase Nasal [place] 50mcg*) 2 spray BOTH NARES DAILY [facility] Guaifenesin (Mucinex*) 600 mg PO BID PRN PRN Reason: CONGESTION Last Admin: 06/19/17 08:20 Dose: 600 mg Ipratropium Maurice (Atrovent 0.5 Mg Neb.Vesna*) 0.5 mg INH [id number] AWAKE [facility] Last Admin: 06/23/17 19:40 Dose: 0.5 mg Lorazepam (Ativan Tab(*)) 0.5 mg PO TID [facility] Last Admin: 06/23/17 14:51 Dose: 0.5 mg Magnesium Oxide (Magox 400 Tab*) 400 mg PO BID [facility] Last Admin: 06/23/17 09:56 Dose: 400 mg Morphine Sulfate (Ms Contin(*)) 15 mg PO Q8H [facility] Last Admin: 06/23/17 17:50 Dose: 15 mg Opium Tincture (Opium Tincture*) 6 mg PO FIVE TIMES DAILY [facility] Last Admin: 06/23/17 17:51 Dose: 6 mg Paroxetine HCl (Paxil Tab*) 30 mg PO QPM [facility] Last Admin: 06/23/17 17:50 Dose: 30 mg Pharmacy Profile Note (Coumadin Daily Reminder*) 0 note FOLLOW UP 1700 [facility] Last Admin: 06/23/17 17:51 Dose: 1 note Prednisone (Deltasone Tab*) 40 mg PO 0900 [facility] Sodium Chloride (Sodium Chloride 0.65% Nasal [place]*) 1 spray BOTH NARES Q4H PRN PRN Reason: Dry nasal passages Tiotropium Maurice (Spiriva Cap.Inh*) 1 cap INH DAILY [facility] Last Admin: 06/23/17 08:24 Dose: Not Given Warfarin Sodium (Coumadin Tab(*)) 3 mg PO DAILY@1700 [facility] PRN Reason: Protocol Last Admin: 06/23/17 17:51 Dose: 3 mg Vital Signs: Vital Signs: Temp Pulse Resp BP Pulse Ox 97.9 F 72 18 139/72 99 06/23/17 15:11 06/23/17 15:11 06/23/17 17:51 06/23/17 15:11 06/23/17 15:11 Patient Weight: Weight 158 lb 6.4 oz Intake and Output: Intake & Output 06/21/17 06/22/17 06/23/17 06/24/17 06:59 06:59 06:59 06:59 Intake Total 1120 1654 1823 720 Output Total 2600 2170 3200 1000 Balance -1480 -516 -1377 -280 Weight 165 lb 9.074 oz 159 lb 13.362 oz 158 lb 6.4 oz Intake: IV Fluids 70 114 850 NS (0.9%) 70 114 850 IVPB 300 320 323 ABX - AZITHROMYCIN 250 265 265 ABX - CEFTRIAXONE 50 55 58 Oral 750 1220 650 720 Output: Urine 982 538 9178 500 Mcgill 1400 1450 350 500 Liquid Stool 200 Ileostomy 3522 724 2166 Other: Estimated Void Small Date of Last Bowel 06/22/17 Movement # Bowel Movements 2 1 Estimated Stool Amount Medium ADLs: Meal Record Start: 06/16/17 18: 10 Freq: DAILY@0900,1400,1800 Status: Complete Protocol: Created 06/16/17 18:10 System (Rec: 06/16/17 18:10 System MED-M02) Document 06/17/17 09:00 [id number] (Rec: 06/17/17 09:44 [id number] MED-C04) Document 06/17/17 14:00 IAI6163 (Rec: 06/17/17 15:14 [id number] MED-C04) Document 06/17/17 18:00 YFW9142 (Rec: 06/17/17 19:30 TYI9017 MED-C09) Document 06/18/17 09:00 YAL2526 (Rec: 06/18/17 10:54 GWV6838 MED-C11) Document 06/18/17 14:00 KDO0709 (Rec: 06/18/17 15:23 AEM9616 MED-C11) Document 06/18/17 18:00 PRX3142 (Rec: 06/18/17 22:58 ELO8137 MED-C09) Document 06/19/17 09:00 KSV4160 (Rec: 06/19/17 09:08 JHH4419 MED-C11) Document 06/19/17 14:00 ZRY7339 (Rec: 06/19/17 15:11 RHH5662 MED-C14) ADLs: Meal Record Start: 06/19/17 18: 51 Freq: 09,13,18 Status: Complete Protocol: Created 06/19/17 18:51 KTL1805 (Rec: 06/19/17 18:51 QPZ9454 ICU-M04) Document 06/20/17 13:00 QHS6559 (Rec: 06/20/17 13:52 SNF6833 ICU-C16) Document 06/20/17 19:13 SAZ7085 (Rec: 06/20/17 19:13 TYR7496 ICU-C15) Document 06/21/17 09:00 ZMK6694 (Rec: 06/21/17 17:20 RKK2094 ICU-C10) Document 06/21/17 13:00 BIL9755 (Rec: 06/21/17 17:32 ARZ6518 ICU-C10) Document 06/21/17 18:00 FSG7688 (Rec: 06/21/17 21:46 GMB2185 ICU-C15) ADLs: Meal Record Start: 06/21/17 23: 14 Freq: DAILY@0900,1400,1800 Status: Active Protocol: Created 06/21/17 23:14 QGD4611 (Rec: 06/21/17 23:14 LHN4799 ICU-C12) Document 06/22/17 14:00 GIC1025 (Rec: 06/22/17 14:51 IBC1794 TELE-C09) Document 06/22/17 18:00 DEA7045 (Rec: 06/22/17 18:22 PVD0192 TELE-C09) Document 06/23/17 09:00 PRX6268 (Rec: 06/23/17 10:01 SWQ1923 TELE-C05) Document 06/23/17 14:00 AOL1348 (Rec: 06/23/17 14:45 BDJ8585 TELE-C01) Document 06/23/17 18:00 NPK1608 (Rec: 06/23/17 18:28 ORX8861 TELE-C05) Intake and Output Start: 06/16/17 09: 05 Freq: Status: Cancelled Protocol: Created 06/16/17 09:05 System (Rec: 06/16/17 09:05 System ED-C05) Intake and Output Start: 06/16/17 14: 17 Freq: 06,14,2200 Status: Inactive Protocol: Created 06/16/17 14:18 BEX1560 (Rec: 06/16/17 14:18 BKG CURT-BG12) Intake and Output Start: 06/16/17 14: 57 Freq: Status: Active Protocol: Created 06/16/17 14:57 QNE0450 (Rec: 06/16/17 14:57 BKG CURT-BG12) Intake and Output Start: 06/16/17 18: 10 Freq: DAILY@0600,1400,2200 Status: Complete Protocol: Created 06/16/17 18:10 System (Rec: 06/16/17 18:10 System MED-M02) Document 06/16/17 22:00 JXX8743 (Rec: 06/16/17 23:35 LMB4797 MED-C14) Document 06/17/17 05:55 CPL4269 (Rec: 06/17/17 05:55 MED4088 MED-C11) Document 06/17/17 14:00 GGY7370 (Rec: 06/17/17 15:14 SIU3729 MED-C04) Document 06/17/17 21:21 RBO7571 (Rec: 06/17/17 21:22 JTN4868 MED-C09) Document 06/18/17 04:32 ZOR2751 (Rec: 06/18/17 04:34 OQP0666 MED-C09) Document 06/18/17 14:00 QGD7223 (Rec: 06/18/17 15:23 YVS5224 MED-C11) Document 06/18/17 22:00 KJY5135 (Rec: 06/18/17 22:59 CBV3297 MED-C09) Document 06/19/17 06:00 SWT9811 (Rec: 06/19/17 06:20 VUK4918 MED-C09) Document 06/19/17 14:00 JYB8087 (Rec: 06/19/17 15:11 ONJ8918 MED-C14) Intake and Output Start: 06/19/17 18: 51 Freq: Q1HR Status: Complete Protocol: Created 06/19/17 18:51 CWW0586 (Rec: 06/19/17 18:51 KMF4063 ICU-M04) Document 06/19/17 19:00 FHG9339 (Rec: 06/19/17 19:38 RKT9831 ICU-M04) Document 06/19/17 20:00 OHT6511 (Rec: 06/19/17 20:11 YUL0382 ICU-C15) Document 06/19/17 21:00 DPP9510 (Rec: 06/19/17 22:18 YJW2115 ICU-M04) Document 06/19/17 22:00 YKT8710 (Rec: 06/19/17 22:18 RVN6225 ICU-M04) Document 06/19/17 22:18 LJY4413 (Rec: 06/19/17 22:18 BLE6719 ICU-M04) Document 06/19/17 23:00 CUQ4650 (Rec: 06/20/17 00:33 MMV7967 ICU-C15) Document 06/20/17 00:00 LPX6286 (Rec: 06/20/17 00:33 FVJ3167 ICU-C15) Document 06/20/17 01:00 PBW8702 (Rec: 06/20/17 02:51 VRW7749 ICU-C15) Document 06/20/17 02:00 MWU2390 (Rec: 06/20/17 02:51 NUI4157 ICU-C15) Document 06/20/17 03:00 WJT1991 (Rec: 06/20/17 04:27 TSE9033 ICU-C15) Document 06/20/17 04:00 JLX6596 (Rec: 06/20/17 04:27 UGL4214 ICU-C15) Document 06/20/17 05:00 HVO1303 (Rec: 06/20/17 06:21 CFQ9197 ICU-M04) Document 06/20/17 06:00 XXL2753 (Rec: 06/20/17 06:21 WNW4040 ICU-M04) Document 06/20/17 07:00 JDN9551 (Rec: 06/20/17 07:21 HMJ8697 ICU-C15) Document 06/20/17 07:45 LTE6188 (Rec: 06/20/17 07:53 VZB0296 ICU-C15) Document 06/20/17 09:00 CWU8695 (Rec: 06/20/17 10:04 EOH0409 ICU-C15) Document 06/20/17 10:00 UBX2979 (Rec: 06/20/17 10:35 VMG1933 ICU-C15) Document 06/20/17 12:00 ZMW5437 (Rec: 06/20/17 12:23 LFC0544 ICU-M04) Document 06/20/17 13:00 QYK2940 (Rec: 06/20/17 13:53 KJR5046 ICU-C16) Document 06/20/17 14:00 UGQ7688 (Rec: 06/20/17 15:13 BIG5446 ICU-M04) Document 06/20/17 15:00 YDT2514 (Rec: 06/20/17 15:13 KWR4047 ICU-M04) Document 06/20/17 15:13 ZGF9968 (Rec: 06/20/17 15:13 KDC1803 ICU-M04) Document 06/20/17 15:23 UWZ7551 (Rec: 06/20/17 15:23 KWK2391 ICU-C16) Document 06/20/17 17:00 OKG9053 (Rec: 06/20/17 18:37 QSV7379 ICU-C16) Document 06/20/17 18:00 JLS0229 (Rec: 06/20/17 18:37 UBJ6553 ICU-C16) Document 06/20/17 19:00 XJG3260 (Rec: 06/20/17 19:24 ILU2373 ICU-C15) Document 06/20/17 22:00 JTC7757 (Rec: 06/20/17 22:06 NLZ1406 ICU-C18) Document 06/20/17 23:00 QFV0040 (Rec: 06/20/17 23:46 PUH6512 ICU-C15) Document 06/20/17 23:46 JLJ4741 (Rec: 06/20/17 23:46 VBR9737 ICU-C15) Document 06/21/17 06:00 IVV0441 (Rec: 06/21/17 07:01 ZNI9796 ICU-C12) Document 06/21/17 14:28 JOU2278 (Rec: 06/21/17 14:28 XWR5138 ICU-C10) Document 06/21/17 15:00 QSZ3809 (Rec: 06/21/17 17:33 XKA0510 ICU-C10) Document 06/21/17 16:00 GHL8051 (Rec: 06/21/17 17:37 RZD4123 ICU-C10) Document 06/21/17 17:00 GHU5573 (Rec: 06/21/17 17:38 AAI6223 ICU-C10) Document 06/21/17 20:00 KJW9348 (Rec: 06/21/17 20:59 PEW4428 ICU-C20) Document 06/21/17 21:00 EVD4402 (Rec: 06/21/17 22:06 PFZ9039 ICU-C15) Document 06/21/17 22:00 BRE3254 (Rec: 06/21/17 22:06 DER3091 ICU-C15) Document 06/21/17 23:00 MVK1051 (Rec: 06/21/17 23:14 XSQ6668 ICU-C15) Intake and Output Start: 06/21/17 23: 14 Freq: DAILY@0600,1400,2200 Status: Active Protocol: Created 06/21/17 23:14 JGX3774 (Rec: 06/21/17 23:14 QDM7226 ICU-C12) Document 06/22/17 06:00 SEG6969 (Rec: 06/22/17 06:26 DPC6337 ICU-C15) Document 06/22/17 08:15 SIC1867 (Rec: 06/22/17 09:09 VIO1165 ICU-C15) Document 06/22/17 14:00 RRZ8631 (Rec: 06/22/17 15:15 QQM2055 TELE-C09) Document 06/22/17 21:40 JTE2864 (Rec: 06/22/17 21:41 DFG2651 TELE-C01) Document 06/23/17 06:00 UMT1764 (Rec: 06/23/17 07:22 VOL5501 TELE-C35) Document 06/23/17 14:00 YVZ4341 (Rec: 06/23/17 14:45 VSF0627 TELE-C01) Head: Symmetrical Eyes: No Scleral Icterus, PERRLA Ears/Nose/Mouth/Throat: NL Teeth, Lips, Gums, Mucous Membranes Moist Neck: NL Appearance and Movements; NL JVP Cardiovascular: NL Sounds; No Murmurs; No JVD, RRR, No Edema Respiratory: Symmetrical Chest Expansion and Respiratory Effort, - - coarse rales throughout both lungs Abdominal: NL Sounds; No Tenderness; No Distention, - - obese. Ileostomy draining brown thin stool. Extremities: No Edema, No Clubbing, Cyanosis Neurological: NL Sensation, NL Muscle Strength and Tone, - - Somewhat drowsy and confused, having recently received Ativan dose - Assessment Assessment: This patient is ambivalent about her advanced directives, and wants to pursue treatment (radiation) for her lung cancer, as she is not a candidate for surgery or chemotherapy. She still does not meet criteria for hospice care for COPD,as her FEV1 is >40% predicted, and she is also not currently willing to enrol in hospice, but I think she would be an excellent candidate for our COPD co pilot palliative program, to try to reduce ER visits and hospital readmissions. I suggested this to her and she is in agreement, along with her . She can pursue radiation therapy while on this program and will have an extra layer of support at home to try to prevent the need for hospitalizations. Thanks for asking me to see her. I would continue her excellent hospitalist care for the time being. - Plan Consult Plan (MU): Palliative - Time On Unit Date of Evaluation: 06/23/17 Hospice Consult Time in: 16:00 Hospice Consult Time Out: 17:15 Hospice Consult Time Total: 75 > 50% of Time Spend In Counseling or Coordinating Care: Yes
[2017-06-24] MEDS: Ipratropium 0.5MG/2.5ML NEB* 0.5 MG/2.5 ML NEB.SOLN INH SCH ×4 (01:03→19:04)
[2017-06-24] MEDS: Morphine TAB Extended Release (*) 15 MG TAB.ER PO SCH ×3 (02:31→17:38)
[2017-06-24] MEDS: Opium Tincture* 6 MG/0.6 ML ORAL.LIQ SYRINGE PO SCH ×5 (06:06→21:09)
[2017-06-24 06:18] LABS: Hematocrit 31 % (35-47); Hemoglobin 10.1 g/dl (12.0-16.0); Mean Corpuscular HGB Conc 33 g/dl (31-36); Mean Corpuscular Hemoglobin 31 pg (27-31); Mean Corpuscular Volume 94 fL (80-97); Mean Platelet Volume 7.5 um3 (7.4-10.4); Platelet Count 234 10^3/ul (150-450); Red Blood Count 3.26 10^6/ul (4.0-5.4); Red Cell Distribution Width 15 % (10.5-15); White Blood Count 10.7 10^3/ul (3.5-10.8)
[2017-06-24 06:26] LABS: INR 3.39 (0.77-1.02)
[2017-06-24 06:43] LABS: EGFR Non-African American 33.5 (>60)
[2017-06-24 07:34] LABS: ABS Basophils 0.2 10^3/ul (0-0.2); ABS Eosinophils 0.1 10^3/ul (0-0.6); ABS Lymphocytes 1.4 10^3/ul (1.0-4.8)
[2017-06-24 07:37] LABS: Monocytes % 9 % (0-7)
[2017-06-24] MEDS: Tiotropium CAP.INH* CAP.INH/18 MCG (USE ORDER SET !) INH SCH (09:01)
[2017-06-24] MEDS: Magnesium Oxide TAB* 400 MG PO SCH ×2 (09:42→21:08)
[2017-06-24] MEDS: Fluticasone NASAL SPRAY 50MCG* 16 gm SPRAY BTL BOTH NARES SCH (09:43)
[2017-06-24] MEDS: Aspirin EC TAB* 81 MG TAB.EC PO SCH (09:43)
[2017-06-24] MEDS: LORazepam TAB(*) 1 MG PO SCH ×3 (09:43→21:08)
[2017-06-24] MEDS: Cinacalcet TAB* 30 MG PO SCH (09:45)
[2017-06-24] MEDS: Calcitriol CAP* 0.25 MCG PO SCH (09:45)
--- NOTE | 2017-06-24 14:27 | PN ---
Subjective Date of Service: 06/24/17 Interval History: patient is very teary on exam. We discussed going home tomorrow. She states it is very hard for her to leave her house for doctors visits due to "it takes a lot of energy and is exhausting" and wants to have full "cancer workup" in hospital. We discussed optimizing her lung status first, getting her home and the possible enlarge lung nodule could be work up as an outpt if she wanted to seek further treatment. Again, she was teary as well as confrontational on exam. Continued support was given. She reports overall she feels better today with improved breathing and less SOB. Family History: Unchanged from Admission Social History: Unchanged from Admission Past Medical History: Unchanged from Admission Objective Active Medications: Acetaminophen (Tylenol Tab*) 650 mg PO Q6H PRN PRN Reason: pain/fever Last Admin: 06/23/17 01:45 Dose: 325 mg Aspirin (Aspirin Ec Tab*) 81 mg PO DAILY [facility] Last Admin: 06/24/17 09:43 Dose: 81 mg Calcitriol (Rocaltrol Cap*) 0.25 mcg PO QAM [facility] Last Admin: 06/24/17 09:45 Dose: 0.25 mcg Cinacalcet (Sensipar Tab*) 30 mg PO QAM [facility] Last Admin: 06/24/17 09:45 Dose: 30 mg Fluticasone Propionate (Flonase Nasal [place] 50mcg*) 2 spray BOTH NARES DAILY [facility] Last Admin: 06/24/17 09:43 Dose: 2 spray Guaifenesin (Mucinex*) 600 mg PO BID PRN PRN Reason: CONGESTION Last Admin: 06/19/17 08:20 Dose: 600 mg Ipratropium [place] (Atrovent 0.5 Mg Neb.Vesna*) 0.5 mg INH [id number] AWAKE [facility] Last Admin: 06/24/17 13:12 Dose: 0.5 mg Lorazepam (Ativan Tab(*)) 0.5 mg PO TID [facility] Last Admin: 06/24/17 09:43 Dose: 0.5 mg Magnesium Oxide (Magox 400 Tab*) 400 mg PO BID [facility] Last Admin: 06/24/17 09:42 Dose: 400 mg Morphine Sulfate (Ms Contin(*)) 15 mg PO Q8H [facility] Last Admin: 06/24/17 09:42 Dose: 15 mg Opium Tincture (Opium Tincture*) 6 mg PO FIVE TIMES DAILY [facility] Last Admin: 06/24/17 09:41 Dose: 6 mg Paroxetine HCl (Paxil Tab*) 30 mg PO QPM [facility] Last Admin: 06/23/17 17:50 Dose: 30 mg Pharmacy Profile Note (Coumadin Daily Reminder*) 0 note FOLLOW UP 1700 [facility] Last Admin: 06/23/17 17:51 Dose: 1 note Prednisone (Deltasone Tab*) 40 mg PO 0900 [facility] Last Admin: 06/24/17 09:42 Dose: 40 mg Sodium Chloride (Sodium Chloride 0.65% Nasal [place]*) 1 spray BOTH NARES Q4H PRN PRN Reason: Dry nasal passages Tiotropium [place] (Spiriva Cap.Inh*) 1 cap INH DAILY [facility] Last Admin: 06/24/17 09:01 Dose: 1 cap Warfarin Sodium (Coumadin Tab(*)) 3 mg PO DAILY@1700 [facility] PRN Reason: Protocol Last Admin: 06/23/17 17:51 Dose: 3 mg Vital Signs - 8 hr 06/24/17 06/24/17 06/24/17 07:45 08:00 09:01 Temperature 97.3 F Pulse Rate 58 68 Respiratory 20 20 18 Rate Blood Pressure 154/57 (mmHg) O2 Sat by Pulse 99 98 Oximetry 06/24/17 06/24/17 06/24/17 09:41 09:42 09:43 Temperature Pulse Rate Respiratory 20 20 20 Rate Blood Pressure (mmHg) O2 Sat by Pulse Oximetry 06/24/17 06/24/17 06/24/17 11:29 12:57 13:12 Temperature 97.9 F Pulse Rate 64 68 Respiratory 20 16 16 Rate Blood Pressure 149/55 (mmHg) O2 Sat by Pulse 100 98 Oximetry Oxygen Devices in Use Now: Nasal Cannula Appearance: chronically ill female sitting up in bed in NAD, A+O x3 Eyes: No Scleral Icterus, PERRLA Ears/Nose/Mouth/Throat: NL Teeth, Lips, Gums, Mucous Membranes Moist Neck: NL Appearance and Movements; NL JVP Respiratory: Symmetrical Chest Expansion and Respiratory Effort, - - diminished b/l Cardiovascular: NL Sounds; No Murmurs; No JVD, RRR, No Edema Abdominal: NL Sounds; No Tenderness; No Distention Extremities: No Edema, No Clubbing, Cyanosis Neurological: Alert and Oriented x 3, NL Sensation, NL Muscle Strength and Tone Lines/Tubes/Other Access: Clean, Dry and Intact Peripheral IV Nutrition: Taking PO's Result Diagrams: 06/24/17 06:02 06/24/17 06:02 Additional Lab and Data: . Microbiology and Other Data: Microbiology 06/17/17 09:22 Legionella Urinary Antigen - Final Urine Negative Legionella Antigen Streptococcus pneumoniae Ag Screen - Final Negative S. pneumo Antigen Assess/Plan/Problems-Billing . Assessment: 71 yo female with h/o severe COPD, lung cancer (and recurrence), s/p radiation, now with worsening SOB for acute COPD exacerbation and hypoxic respiratory failure Medically complex patient with Crohn's s/p ileostomy with high output, on Opium as antimotility agent - Patient Problems (1) Acute and chronic respiratory failure with hypoxia Comment: - improving - End-stage COPD with severe emphysema and hx of lung cancer with suggestion of possible enlarging nodule. - demonstrated elevation in A-a gradient. - BiPAP often needed - certainly acute and chronic HYPOXIC respiratory failure - improving - Efrain following - discussed over the phone - moving forward slow prednsione taper down to 10 mg (home dose), encourage home cpap (she has been non-compliant ) and smoking cessation (2) COPD exacerbation Comment: - Regressed with need for rescue BiPAP 06/19 and 06/20 - now doing much better - Certainly anxiety component, but maybe also mucus plug, etc (see Dr. Enrique's note) - BiPAP available as patient needs - Morphine seems to help greatly - Spiriva daily, PRN Levalbuterol - Prednisone taper, 35 mg 5/ - azith and ceftri - 6 day course. (3) Mass of upper lobe of right lung Comment: - Lung cancer - possible? mass on CT. follows with Dr. Wang/Dr. Mora - f/u with Onc/Onc Radiology to discuss further options prior to deciding hospice - Discussed with Dr. Wang 06/24 who will stop by and see the patient. (4) Crohn's disease Comment: S/P ileostomy with hx of high oupt - Continue home dose tincture of opium (5) History of DVT (deep vein thrombosis) Comment: - Warfarin (6) Acute on chronic renal failure Comment: - Cr at admission 1.9 - Now at baseline at ~1.5. (7) Anxiety Comment: - Certainly an anxiety component - Continue morphine SR 15 mg PO Q8 (started this admission) - Continue Ativan 0.5 mg PO TID (8) DNR (do not resuscitate) (9) DVT prophylaxis Comment: - Warfarin, INR 3.39 today, hold todays dose and reduce to 2 mg daily Status and Disposition: . Inpatient. Most likely home when medically stable.
--- NOTE | 2017-06-24 16:47 | PN ---
Progress Note - Progress Note Date of Service: 06/24/17 - Pulm f/u note Note: Pt seen and examined at bedside. Pt reports feeling better, has been on BiPAP during the day while sleeping. No new complaints Active Medications Generic Name Dose Route Start Last Admin Trade Name Freq PRN Reason Stop Dose Admin Acetaminophen 650 mg 06/16/17 14:18 06/23/17 01:45 Tylenol Tab* PO 325 mg Q6H PRN Administration pain/fever Aspirin 81 mg 06/17/17 09:00 06/24/17 09:43 Aspirin Ec Tab* PO 81 mg DAILY [facility] Administration Calcitriol 0.25 mcg 06/17/17 09:00 06/24/17 09:45 Rocaltrol Cap* PO 0.25 mcg QAM [facility] Administration Cinacalcet 30 mg 06/17/17 09:00 06/24/17 09:45 Sensipar Tab* PO 30 mg QAM [facility] Administration Fluticasone Propionate 2 spray 06/24/17 09:00 06/24/17 09:43 Flonase Nasal [place] 50mcg* BOTH NARES 2 spray DAILY [facility] Administration Guaifenesin 600 mg 06/16/17 14:18 06/19/17 08:20 Mucinex* PO 600 mg BID PRN Administration CONGESTION Ipratropium [place] 0.5 mg 06/18/17 13:00 06/24/17 13:12 Atrovent 0.5 Mg Neb.Vesna* INH 0.5 mg [id number] AWAKE [facility] Administration Lorazepam 0.5 mg 06/16/17 21:00 06/24/17 14:37 Ativan Tab(*) PO 0.5 mg TID [facility] Administration Magnesium Oxide 400 mg 06/16/17 21:00 06/24/17 09:42 Magox 400 Tab* PO 400 mg BID [facility] Administration Morphine Sulfate 15 mg 06/21/17 10:00 06/24/17 09:42 Ms Contin(*) PO 15 mg Q8H [facility] Administration Opium Tincture 6 mg 06/20/17 18:00 06/24/17 14:38 Opium Tincture* PO 6 mg FIVE TIMES DAILY [facility] Administration Paroxetine HCl 30 mg 06/16/17 18:00 06/23/17 17:50 Paxil Tab* PO 30 mg QPM [facility] Administration Pharmacy Profile Note 0 note 06/20/17 17:00 06/23/17 17:51 Coumadin Daily Reminder* FOLLOW UP 1 note 1700 [facility] Administration Prednisone 35 mg 06/25/17 09:00 Deltasone Tab* PO 0900 [facility] Sodium Chloride 1 spray 06/17/17 16:53 Sodium Chloride 0.65% Nasal [place]* BOTH NARES Q4H PRN Dry nasal passages Tiotropium [place] 1 cap 06/17/17 09:00 06/24/17 09:01 Spiriva Cap.Inh* INH 1 cap DAILY [facility] Administration Warfarin Sodium 2 mg 06/25/17 17:00 Coumadin Tab(*) PO DAILY@1700 [facility] Protocol Vital Signs Temp Pulse Resp BP Pulse Ox 97.9 F 68 18 149/55 98 06/24/17 11:29 06/24/17 13:12 06/24/17 14:38 06/24/17 11:29 06/24/17 13:12 O/E: Pt in NAD, lying in bed HEENT: PERRLA, No JVD Lungs: Diminished air entry b/l, prolonged exhalation CVS: S1, S2+, regular Abd: Soft, BS+ Ext:Trace edema +, no tenderness to palpation Skin: Ecchymosis + in UE Neuro: Oriented x3, no focal deficits Labs: Laboratory Results - last 24 hr 06/24/17 06:02 WBC 10.7 RBC 3.26 L Hgb 10.1 L Hct 31 L MCV 94 MCH 31 MCHC 33 RDW 15 Plt Count 234 MPV 7.5 Neut % (Auto) Not Reportable Lymph % (Auto) Not Reportable [place] % (Auto) Not Reportable Eos % (Auto) Not Reportable Baso % (Auto) Not Reportable Absolute Neuts (auto) 8.0 H Absolute Lymphs (auto) 1.4 Absolute Monos (auto) 1.0 H Absolute Eos (auto) 0.1 Absolute Basos (auto) 0.2 Absolute Nucleated RBC Not Reportable Immature Gran % 5 Neutrophils % 75 Band Neutrophils % 1 Lymphocytes % 11 L Monocytes % 9 H Eosinophils % 0 Basophils % 0 Myelocytes % 4 H Nucleated RBC % Not Reportable Abs Neuts (Manual) 8.0 H Abs Lymphs (Manual) 1.2 Abs Monocytes (Manual) 1.0 H Absolute Eos (Manual) 0 Abs Basophils (Manual) 0 Normal RBC Morphology Normal Hem Pathologist Commnt I/R: 71 y o f with h/o severe COPD, lung cancer with recurrence, underwent XRT, [place] s/p ileostomy with high out put, GABBY on CPAP a/w worsening SOB for acute COPD exacerbation Overall improved since admission Morphine working better for her breathing Less sleepy since Ativan was d/edilia c/w nebs c/w prednisone taper c/w Flonase Having thick phleghm, using flutter device c/w BiPAP at night She is also on Opium for high out put ileostomy Pt is DNR Her significant other Nikki is her HCP, will discuss with her Recurrent lung cancer s/p XRT, progressing as per imaging findings Pt to f/u with Dr Wang as out pt She is not hypoxic on 2-3L O2
[2017-06-24] MEDS: PARoxetine HCL TAB* 10 MG PO SCH (17:42)
[2017-06-24] MEDS ORDERED: amLODIPine TAB* 5 MG PO ONE (20:05)
[2017-06-25] MEDS: Morphine TAB Extended Release (*) 15 MG TAB.ER PO SCH ×3 (01:11→20:59)
[2017-06-25] MEDS: Acetaminophen TAB* 325 MG PO PRN (01:14)
[2017-06-25] MEDS: Ipratropium 0.5MG/2.5ML NEB* 0.5 MG/2.5 ML NEB.SOLN INH SCH ×4 (01:23→20:01)
[2017-06-25] MEDS: Opium Tincture* 6 MG/0.6 ML ORAL.LIQ SYRINGE PO SCH ×5 (05:30→20:59)
[2017-06-25] MEDS: Tiotropium CAP.INH* CAP.INH/18 MCG (USE ORDER SET !) INH SCH (07:37)
[2017-06-25] MEDS ORDERED: predniSONE TAB* 10 MG PO SCH (09:00)
[2017-06-25] MEDS: Fluticasone NASAL SPRAY 50MCG* 16 gm SPRAY BTL BOTH NARES SCH (09:39)
[2017-06-25] MEDS: Cinacalcet TAB* 30 MG PO SCH (09:40)
[2017-06-25] MEDS: Calcitriol CAP* 0.25 MCG PO SCH (09:40)
[2017-06-25] MEDS: amLODIPine TAB* 5 MG PO SCH (09:42)
[2017-06-25] MEDS: LORazepam TAB(*) 1 MG PO SCH ×4 (09:42→20:58)
[2017-06-25] MEDS: Aspirin EC TAB* 81 MG TAB.EC PO SCH (09:43)
[2017-06-25] MEDS: Magnesium Oxide TAB* 400 MG PO SCH ×2 (09:43→20:59)
--- NOTE | 2017-06-25 12:10 | PN ---
Subjective Date of Service: 06/25/17 Interval History: patient reports "I dont want to go home today I feel too weak still", pt reports she is gaining strength daily but continues to feel very SOB with exertion of more than a few steps. Spoke with her partner Mathew who is also worried about her respiratory status with exertion. Little sputum production. She does feel that she is improving but worried about going home and being independent. Family History: Unchanged from Admission Social History: Unchanged from Admission Past Medical History: Unchanged from Admission Objective Active Medications: Acetaminophen (Tylenol Tab*) 650 mg PO Q6H PRN PRN Reason: pain/fever Last Admin: 06/25/17 01:14 Dose: 650 mg Amlodipine Besylate (Norvasc Tab*) 5 mg PO DAILY [facility] Last Admin: 06/25/17 09:42 Dose: 5 mg Aspirin (Aspirin Ec Tab*) 81 mg PO DAILY [facility] Last Admin: 06/25/17 09:43 Dose: 81 mg Calcitriol (Rocaltrol Cap*) 0.25 mcg PO QAM [facility] Last Admin: 06/25/17 09:40 Dose: 0.25 mcg Cinacalcet (Sensipar Tab*) 30 mg PO QAM [facility] Last Admin: 06/25/17 09:40 Dose: 30 mg Fluticasone Propionate (Flonase Nasal [place] 50mcg*) 2 spray BOTH NARES DAILY [facility] Last Admin: 06/25/17 09:39 Dose: 2 spray Guaifenesin (Mucinex*) 600 mg PO BID PRN PRN Reason: CONGESTION Last Admin: 06/19/17 08:20 Dose: 600 mg Ipratropium [place] (Atrovent 0.5 Mg Neb.Vesna*) 0.5 mg INH [id number] AWAKE [facility] Last Admin: 06/25/17 06:01 Dose: 0.5 mg Lorazepam (Ativan Tab(*)) 0.5 mg PO TID [facility] Last Admin: 06/25/17 09:42 Dose: 0.5 mg Magnesium Oxide (Magox 400 Tab*) 400 mg PO BID [facility] Last Admin: 06/25/17 09:43 Dose: 400 mg Morphine Sulfate (Ms Contin(*)) 15 mg PO Q8H [facility] Last Admin: 06/25/17 09:41 Dose: 15 mg Opium Tincture (Opium Tincture*) 6 mg PO FIVE TIMES DAILY [facility] Last Admin: 06/25/17 09:39 Dose: 6 mg Paroxetine HCl (Paxil Tab*) 30 mg PO QPM [facility] Last Admin: 06/24/17 17:42 Dose: 30 mg Pharmacy Profile Note (Coumadin Daily Reminder*) 0 note FOLLOW UP 1700 [facility] Last Admin: 06/24/17 17:43 Dose: 1 note Prednisone (Deltasone Tab*) 35 mg PO 0900 [facility] Last Admin: 06/25/17 09:40 Dose: 35 mg Sodium Chloride (Sodium Chloride 0.65% Nasal [place]*) 1 spray BOTH NARES Q4H PRN PRN Reason: Dry nasal passages Tiotropium [place] (Spiriva Cap.Inh*) 1 cap INH DAILY [facility] Last Admin: 06/25/17 07:37 Dose: 1 cap Warfarin Sodium (Coumadin Tab(*)) 2 mg PO DAILY@1700 [facility] PRN Reason: Protocol Vital Signs - 8 hr 06/25/17 06/25/17 06/25/17 05:30 06:01 09:19 Pulse Rate 66 66 Respiratory 20 20 Rate Blood Pressure 132/49 (mmHg) O2 Sat by Pulse 99 99 Oximetry 06/25/17 06/25/17 06/25/17 09:21 09:39 09:41 Pulse Rate Respiratory 16 20 20 Rate Blood Pressure (mmHg) O2 Sat by Pulse Oximetry 06/25/17 06/25/17 09:42 11:23 Pulse Rate 68 Respiratory 20 18 Rate Blood Pressure 145/56 (mmHg) O2 Sat by Pulse 98 Oximetry Oxygen Devices in Use Now: Nasal Cannula Appearance: chronically ill appearing female A+O x3 in NAD Eyes: No Scleral Icterus, PERRLA Ears/Nose/Mouth/Throat: NL Teeth, Lips, Gums, Mucous Membranes Moist Neck: NL Appearance and Movements; NL JVP Respiratory: Symmetrical Chest Expansion and Respiratory Effort, - - diminished b/l Cardiovascular: NL Sounds; No Murmurs; No JVD, RRR, - - 1+ LE edema Abdominal: NL Sounds; No Tenderness; No Distention Extremities: No Clubbing, Cyanosis Skin: No Rash or Ulcers, No Nodules or Sclerosis Neurological: Alert and Oriented x 3, NL Sensation, NL Muscle Strength and Tone Lines/Tubes/Other Access: Clean, Dry and Intact Peripheral IV Nutrition: Taking PO's Result Diagrams: 06/24/17 06:02 06/24/17 06:02 Additional Lab and Data: . Microbiology and Other Data: Microbiology 06/17/17 09:22 Legionella Urinary Antigen - Final Urine Negative Legionella Antigen Streptococcus pneumoniae Ag Screen - Final Negative S. pneumo Antigen Assess/Plan/Problems-Billing . Assessment: 71 yo female with h/o severe COPD, lung cancer (and recurrence), s/p radiation, now with worsening SOB for acute COPD exacerbation and hypoxic respiratory failure Medically complex patient with Crohn's s/p ileostomy with high output, on Opium as antimotility agent - Patient Problems (1) Acute and chronic respiratory failure with hypoxia Comment: - improving - End-stage COPD with severe emphysema and hx of lung cancer with suggestion of possible enlarging nodule. - demonstrated elevation in A-a gradient. - BiPAP often needed - certainly acute and chronic HYPOXIC respiratory failure - improving - Efrain following - discussed over the phone - moving forward slow prednsione taper down to 10 mg (home dose), encourage home cpap (she has been non-compliant ) and smoking cessation (2) COPD exacerbation Comment: - Regressed with need for rescue BiPAP 06/19 and 06/20 - now doing much better - Certainly anxiety component, but maybe also mucus plug, etc (see Dr. Enrique's note) - BiPAP available as patient needs - Morphine seems to help greatly - Spiriva daily, PRN Levalbuterol - Prednisone taper, 35 mg 5/ - finished azith and ceftri - 6 day course. (3) Mass of upper lobe of right lung Comment: - Lung cancer - possible? mass on CT. follows with Dr. Wang/Dr. Mora - f/u with Onc/Onc Radiology to discuss further options prior to deciding hospice - (4) Crohn's disease Comment: S/P ileostomy with hx of high oupt - Continue home dose tincture of opium (5) History of DVT (deep vein thrombosis) Comment: - Warfarin (6) Acute on chronic renal failure Comment: - Cr at admission 1.9 - Now at baseline at ~1.5. (7) Anxiety Comment: - Certainly an anxiety component - Continue morphine SR but change from 15 mg PO Q8 to Q12 today (started this admission) - Continue Ativan 0.5 mg PO TID (8) DNR (do not resuscitate) (9) DVT prophylaxis Comment: - Warfarin, INR 2.33 today, continue 2 mg daily Status and Disposition: . Inpatient. Most likely home when medically stable.
[2017-06-25] MEDS ORDERED: Furosemide IV* 10 MG/ML 2 ML VIAL (20 MG) IV ONE (12:22)
[2017-06-25 14:15] LABS: INR 2.33 (0.77-1.02)
[2017-06-25] MEDS: PARoxetine HCL TAB* 10 MG PO SCH (17:44)
[2017-06-25] MEDS: Warfarin TAB(*) 2 MG PO SCH (17:45)
[2017-06-26] MEDS: Ipratropium 0.5MG/2.5ML NEB* 0.5 MG/2.5 ML NEB.SOLN INH SCH ×4 (00:15→20:24)
[2017-06-26] MEDS: Opium Tincture* 6 MG/0.6 ML ORAL.LIQ SYRINGE PO SCH ×5 (06:09→20:15)
[2017-06-26] MEDS: Tiotropium CAP.INH* CAP.INH/18 MCG (USE ORDER SET !) INH SCH ×2 (07:57→11:07)
[2017-06-26] MEDS: LORazepam TAB(*) 1 MG PO SCH ×3 (08:29→20:15)
[2017-06-26] MEDS: Calcitriol CAP* 0.25 MCG PO SCH (08:30)
[2017-06-26] MEDS: predniSONE TAB* 10 MG PO SCH (08:30)
[2017-06-26] MEDS: Cinacalcet TAB* 30 MG PO SCH (08:30)
[2017-06-26] MEDS: amLODIPine TAB* 5 MG PO SCH (08:30)
[2017-06-26] MEDS: Magnesium Oxide TAB* 400 MG PO SCH ×2 (08:30→20:14)
[2017-06-26] MEDS: Aspirin EC TAB* 81 MG TAB.EC PO SCH (08:31)
[2017-06-26] MEDS: Morphine TAB Extended Release (*) 15 MG TAB.ER PO SCH ×2 (08:31→20:15)
[2017-06-26] MEDS: Fluticasone NASAL SPRAY 50MCG* 16 gm SPRAY BTL BOTH NARES SCH (08:44)
[2017-06-26 11:15] LABS: Hematocrit 34 % (35-47); Hemoglobin 11.1 g/dl (12.0-16.0); Mean Corpuscular HGB Conc 33 g/dl (31-36); Mean Corpuscular Hemoglobin 30 pg (27-31); Mean Corpuscular Volume 93 fL (80-97); Mean Platelet Volume 7.4 um3 (7.4-10.4); Platelet Count 231 10^3/ul (150-450); Red Blood Count 3.66 10^6/ul (4.0-5.4); Red Cell Distribution Width 15 % (10.5-15); White Blood Count 14.8 10^3/ul (3.5-10.8)
[2017-06-26 11:33] LABS: EGFR Non-African American 32.8 (>60)
[2017-06-26 11:36] LABS: INR 1.7 (0.77-1.02)
[2017-06-26 12:08] LABS: ABS Basophils 0 10^3/ul (0-0.2); ABS Eosinophils 0 10^3/ul (0-0.6); ABS Lymphocytes 1.4 10^3/ul (1.0-4.8); ABS Monocytes 0.9 10^3/ul (0-0.8); ABS Neutrophils 12.4 10^3/ul (1.5-7.7); ABS Nucleated RBC 0 10^3/ul
[2017-06-26 12:11] LABS: Monocytes % 4 % (0-7)
[2017-06-26] MEDS: PARoxetine HCL TAB* 10 MG PO SCH (16:42)
[2017-06-26] MEDS: Warfarin TAB(*) 2 MG PO SCH (16:43)
--- NOTE | 2017-06-26 17:53 | PN ---
Subjective Date of Service: 06/26/17 Interval History: per nursing staff patient is refusing to get OOB today. On exam she reports she was "very tired today". She is noted to A+O x3 sitting up visiting with the nursing coordinator laughing and appearing to have a nice conversation. She denies depression but states she feels very anxious about going home and not being strong enough. She does not want to go to subacute rehab. She is also not sure if she wants to go back on Hospice. She is very short with me and state s:I just dont want to talk about it right now". She reports her breathing continues to feel better. No fevers or chills. Appetite improving. Discussed with the briefcase sewer who has set up a meeting with her Mathew tomorrow at 230pm . Family History: Unchanged from Admission Social History: Unchanged from Admission Past Medical History: Unchanged from Admission Objective Active Medications: Acetaminophen (Tylenol Tab*) 650 mg PO Q6H PRN PRN Reason: pain/fever Last Admin: 06/25/17 01:14 Dose: 650 mg Amlodipine Besylate (Norvasc Tab*) 5 mg PO DAILY [facility] Last Admin: 06/26/17 08:30 Dose: 5 mg Aspirin (Aspirin Ec Tab*) 81 mg PO DAILY [facility] Last Admin: 06/26/17 08:31 Dose: 81 mg Calcitriol (Rocaltrol Cap*) 0.25 mcg PO QAM [facility] Last Admin: 06/26/17 08:30 Dose: 0.25 mcg Cinacalcet (Sensipar Tab*) 30 mg PO QAM [facility] Last Admin: 06/26/17 08:30 Dose: 30 mg Fluticasone Propionate (Flonase Nasal [place] 50mcg*) 2 spray BOTH NARES DAILY [facility] Last Admin: 06/26/17 08:44 Dose: Not Given Guaifenesin (Mucinex*) 600 mg PO BID PRN PRN Reason: CONGESTION Last Admin: 06/19/17 08:20 Dose: 600 mg Ipratropium [place] (Atrovent 0.5 Mg Neb.Vesna*) 0.5 mg INH [id number] AWAKE [facility] Last Admin: 06/26/17 13:07 Dose: 0.5 mg Lorazepam (Ativan Tab(*)) 0.5 mg PO TID [facility] Last Admin: 06/26/17 15:16 Dose: 0.5 mg Magnesium Oxide (Magox 400 Tab*) 400 mg PO BID [facility] Last Admin: 06/26/17 08:30 Dose: 400 mg Morphine Sulfate (Ms Contin(*)) 15 mg PO Q12H [facility] Last Admin: 06/26/17 08:31 Dose: 15 mg Opium Tincture (Opium Tincture*) 6 mg PO FIVE TIMES DAILY [facility] Last Admin: 06/26/17 16:41 Dose: 6 mg Paroxetine HCl (Paxil Tab*) 30 mg PO QPM [facility] Last Admin: 06/26/17 16:42 Dose: 30 mg Pharmacy Profile Note (Coumadin Daily Reminder*) 0 note FOLLOW UP 1700 [facility] Last Admin: 06/26/17 16:42 Dose: 1 note Prednisone (Deltasone Tab*) 30 mg PO 0900 [facility] Last Admin: 06/26/17 08:30 Dose: 30 mg Sodium Chloride (Sodium Chloride 0.65% Nasal [place]*) 1 spray BOTH NARES Q4H PRN PRN Reason: Dry nasal passages Tiotropium [place] (Spiriva Cap.Inh*) 1 cap INH DAILY [facility] Last Admin: 06/26/17 07:57 Dose: 1 cap Warfarin Sodium (Coumadin Tab(*)) 2 mg PO DAILY@1700 [facility] PRN Reason: Protocol Last Admin: 06/26/17 16:43 Dose: 2 mg Vital Signs - 8 hr 06/26/17 06/26/17 06/26/17 10:17 10:18 11:19 Temperature 97.8 F Pulse Rate 76 Respiratory 16 16 20 Rate Blood Pressure 136/66 (mmHg) O2 Sat by Pulse 99 Oximetry 06/26/17 06/26/17 06/26/17 13:08 15:00 15:14 Temperature 97.9 F Pulse Rate 76 68 Respiratory 19 16 16 Rate Blood Pressure 147/74 (mmHg) O2 Sat by Pulse 95 98 Oximetry 06/26/17 06/26/17 06/26/17 15:16 16:24 16:25 Temperature Pulse Rate Respiratory 16 20 20 Rate Blood Pressure (mmHg) O2 Sat by Pulse Oximetry 06/26/17 16:41 Temperature Pulse Rate Respiratory 20 Rate Blood Pressure (mmHg) O2 Sat by Pulse Oximetry Oxygen Devices in Use Now: BiPAP Appearance: chronically ill 71 yo female layingin bed A+O x3 in NAD Eyes: No Scleral Icterus, PERRLA Ears/Nose/Mouth/Throat: NL Teeth, Lips, Gums, Mucous Membranes Moist Neck: NL Appearance and Movements; NL JVP Respiratory: Symmetrical Chest Expansion and Respiratory Effort, Clear to Auscultation Cardiovascular: NL Sounds; No Murmurs; No JVD, RRR, No Edema Abdominal: NL Sounds; No Tenderness; No Distention, - - obese Skin: - - multiple areas of ecchymosis on arms bilaterally (secondary to blood draws); healing Neurological: Alert and Oriented x 3, NL Sensation, NL Muscle Strength and Tone Lines/Tubes/Other Access: Clean, Dry and Intact Peripheral IV Nutrition: Taking PO's Result Diagrams: 06/26/17 11:06 06/26/17 11:06 Additional Lab and Data: . Microbiology and Other Data: Microbiology 06/17/17 09:22 Legionella Urinary Antigen - Final Urine Negative Legionella Antigen Streptococcus pneumoniae Ag Screen - Final Negative S. pneumo Antigen Assess/Plan/Problems-Billing . Assessment: 71 yo female with h/o severe COPD, lung cancer (and recurrence), s/p radiation, now with worsening SOB for acute COPD exacerbation and hypoxic respiratory failure Medically complex patient with Crohn's s/p ileostomy with high output, on Opium as antimotility agent - Patient Problems (1) Acute and chronic respiratory failure with hypoxia Comment: - Resolved - End-stage COPD with severe emphysema and hx of lung cancer with suggestion of possible enlarging nodule. - demonstrated elevation in A-a gradient. - BiPAP often needed - certainly acute and chronic HYPOXIC respiratory failure - improving - Efrain following - discussed over the phone - moving forward slow prednsione taper down to 10 mg (home dose), encourage home cpap (she has been non-compliant ) and smoking cessation (2) COPD exacerbation Comment: - Regressed with need for rescue BiPAP 06/19 and 06/20 - now doing much better and is back at her baseline. - Certainly anxiety component, but may also have been a mucus plug, etc (see Dr. Enrique's note) - BiPAP available as patient needs - - Morphine seems to help greatly - Spiriva daily, PRN Levalbuterol - Prednisone taper, 35 mg 06/26 - decrease to 30 mg tomorrow with continued slow taper - finished azith and ceftri - 6 day course. (3) Mass of upper lobe of right lung Comment: - Lung cancer - possible? mass on CT. follows with Dr. Wang/Dr. Mora - f/u with Onc/Onc Radiology to discuss further options prior to deciding hospice - - Dr. Wang looked at scans and her CT was discussed in Tumor Board including Dr. mora ... it is possible there is some growth but could also be fibrous tissue aorund the nodule that was there already..... their team is following along peripherally. Dr. barnes spoke with the patient twice this week. Most likely the patient is not a canidate for much treatment but pt should follow up with her onc if she decides she wants to discuss further. (4) Crohn's disease Comment: S/P ileostomy with hx of high oupt - Continue home dose tincture of opium (5) History of DVT (deep vein thrombosis) Comment: - Warfarin (6) Acute on chronic renal failure Comment: - Cr at admission 1.9 - Now at baseline at ~1.5. (7) Anxiety Comment: - Certainly an anxiety component - Continue morphine SR - changed from 15 mg PO Q8 to Q12 5/ (started this admission) - Continue Ativan 0.5 mg PO TID (8) DNR (do not resuscitate) (9) DVT prophylaxis Comment: - Warfarin, INR 1.7 today, continue 2 mg daily Status and Disposition: . Inpatient. Patients goal was to return to home at discharge. It was discussed with her at length that to meet that goal she needs to be compliant with PT and she frequently refuses to get OOB with the nurse and/or not work with PT. the patient is very weak and has little reserve. She is medically stable for discharge at this point other than her deconditioning and weakness. There is a family meeting tomorrow at 230pm to discuss options with the patient and her , along with case management assistant.
--- NOTE | 2017-06-26 18:59 | PN ---
Progress Note - Progress Note Date of Service: 06/26/17 - Pulm f/u note Note: Pt seen and examined at bedside. pt reports feeling better. Has not tried to get out of bed today. Denies significant cough. Active Medications Generic Name Dose Route Start Last Admin Trade Name Freq PRN Reason Stop Dose Admin Acetaminophen 650 mg 06/16/17 14:18 06/25/17 01:14 Tylenol Tab* PO 650 mg Q6H PRN Administration pain/fever Amlodipine Besylate 5 mg 06/25/17 09:00 06/26/17 08:30 Norvasc Tab* PO 5 mg DAILY [facility] Administration Aspirin 81 mg 06/17/17 09:00 06/26/17 08:31 Aspirin Ec Tab* PO 81 mg DAILY [facility] Administration Calcitriol 0.25 mcg 06/17/17 09:00 06/26/17 08:30 Rocaltrol Cap* PO 0.25 mcg QAM [facility] Administration Cinacalcet 30 mg 06/17/17 09:00 06/26/17 08:30 Sensipar Tab* PO 30 mg QAM [facility] Administration Fluticasone Propionate 2 spray 06/24/17 09:00 06/26/17 08:44 Flonase Nasal [place] 50mcg* BOTH NARES Not Given DAILY [facility] Guaifenesin 600 mg 06/16/17 14:18 06/19/17 08:20 Mucinex* PO 600 mg BID PRN Administration CONGESTION Ipratropium [place] 0.5 mg 06/18/17 13:00 06/26/17 13:07 Atrovent 0.5 Mg Neb.Vesna* INH 0.5 mg [id number] AWAKE [facility] Administration Lorazepam 0.5 mg 06/16/17 21:00 06/26/17 15:16 Ativan Tab(*) PO 0.5 mg TID [facility] Administration Magnesium Oxide 400 mg 06/16/17 21:00 06/26/17 08:30 Magox 400 Tab* PO 400 mg BID [facility] Administration Morphine Sulfate 15 mg 06/25/17 22:00 06/26/17 08:31 Ms Contin(*) PO 15 mg Q12H [facility] Administration Opium Tincture 6 mg 06/20/17 18:00 06/26/17 16:41 Opium Tincture* PO 6 mg FIVE TIMES DAILY [facility] Administration Paroxetine HCl 30 mg 06/16/17 18:00 06/26/17 16:42 Paxil Tab* PO 30 mg QPM [facility] Administration Pharmacy Profile Note 0 note 06/20/17 17:00 06/26/17 16:42 Coumadin Daily Reminder* FOLLOW UP 1 note 1700 [facility] Administration Prednisone 30 mg 06/26/17 09:00 06/26/17 08:30 Deltasone Tab* PO 30 mg 0900 [facility] Administration Sodium Chloride 1 spray 06/17/17 16:53 Sodium Chloride 0.65% Nasal [place]* BOTH NARES Q4H PRN Dry nasal passages Tiotropium [place] 1 cap 06/17/17 09:00 06/26/17 07:57 Spiriva Cap.Inh* INH 1 cap DAILY [facility] Administration Warfarin Sodium 2 mg 06/25/17 17:00 06/26/17 16:43 Coumadin Tab(*) PO 2 mg DAILY@1700 [facility] Administration Protocol Vital Signs Temp Pulse Resp BP Pulse Ox 97.9 F 68 18 147/74 98 06/26/17 15:00 06/26/17 15:00 06/26/17 18:18 06/26/17 15:00 06/26/17 15:00 O/E: Pt in NAD, lying in bed HEENT: PERRLA, No JVD, mucus membranes moist Lungs: Diminished air entry b/l, prolonged exhalation CVS: S1, S2+, regular Abd: Soft, BS+, NT Ext:Trace edema +, no tenderness to palpation Skin: Ecchymosis + in UE Neuro: Oriented x3, no focal deficits Laboratory Results - last 24 hr 06/26/17 06/26/17 06/26/17 11:06 11:06 11:06 WBC 14.8 H RBC 3.66 L Hgb 11.1 L Hct 34 L MCV 93 MCH 30 MCHC 33 RDW 15 Plt Count 231 MPV 7.4 Neut % (Auto) Not Reportable Lymph % (Auto) Not Reportable [place] % (Auto) Not Reportable Eos % (Auto) Not Reportable Baso % (Auto) Not Reportable Absolute Neuts (auto) 12.4 H Absolute Lymphs (auto) 1.4 Absolute Monos (auto) 0.9 H Absolute Eos (auto) 0 Absolute Basos (auto) 0 Absolute Nucleated RBC 0 Immature Gran % 3 Neutrophils % 88 H Band Neutrophils % 1 Lymphocytes % 5 L Monocytes % 4 Eosinophils % 0 Basophils % 0 Metamyelocytes % 1 Myelocytes % 1 Nucleated RBC % Not Reportable Abs Neuts (Manual) 13.0 H Abs Lymphs (Manual) 0.7 L Abs Monocytes (Manual) 0.6 Absolute Eos (Manual) 0 Abs Basophils (Manual) 0 Normal RBC Morphology Normal INR (Anticoag Therapy) 1.70 H Sodium 141 Potassium 4.1 Chloride 95 L Carbon Dioxide 38 H Anion Gap 8 BUN 38 H Creatinine 1.55 H Est GFR ( Amer) 42.2 Est GFR (Non-Af Amer) 32.8 BUN/Creatinine Ratio 24.5 H Glucose 212 H Calcium 8.5 L I/R: 71 y o f with h/o severe COPD, lung cancer with recurrence, underwent XRT, [place] s/p ileostomy with high out put, GABBY on CPAP a/w worsening SOB for acute COPD exacerbation Overall improved since admission Has poor functional status and quality of life at baseline, sleeping in bed for most part Morphine working better for her breathing c/w nebs c/w prednisone taper to baseline of 10mg c/w Flonase Having thick phleghm, using flutter device c/w BiPAP at night She is not hypoxic on 2-3L O2 Recurrent lung cancer s/p XRT, progressing as per imaging findings Was discussed at tumor board, lesion not accessible for easy biopsy given poor functional status and pulmonary status Slowly growing malignancy versus inflammation sec to radiation being considered Pt is DNR Her significant other Nikki is her HCP, will discuss arrangements needed for d/ c
[2017-06-26] MEDS: guaiFENesin ER TAB 600 MG PO PRN (20:15)
[2017-06-27] MEDS: Ipratropium 0.5MG/2.5ML NEB* 0.5 MG/2.5 ML NEB.SOLN INH SCH ×3 (01:44→13:48)
[2017-06-27] MEDS ORDERED: CMCS:Melatonin (NF) 3 MG TAB PO PRN (02:28)
[2017-06-27] MEDS: Opium Tincture* 6 MG/0.6 ML ORAL.LIQ SYRINGE PO SCH ×2 (05:51→10:25)
[2017-06-27] MEDS: Tiotropium CAP.INH* CAP.INH/18 MCG (USE ORDER SET !) INH SCH (07:57)
[2017-06-27 08:00] LABS: INR 1.9 (0.77-1.02)
[2017-06-27 08:07] VITALS: BP 144/66
[2017-06-27] MEDS: guaiFENesin ER TAB 600 MG PO PRN (10:26)
[2017-06-27] MEDS: Morphine TAB Extended Release (*) 15 MG TAB.ER PO SCH (10:26)
[2017-06-27] MEDS: amLODIPine TAB* 5 MG PO SCH (10:26)
[2017-06-27] MEDS: Aspirin EC TAB* 81 MG TAB.EC PO SCH (10:26)
[2017-06-27] MEDS: predniSONE TAB* 10 MG PO SCH (10:26)
[2017-06-27] MEDS: Cinacalcet TAB* 30 MG PO SCH (10:26)
[2017-06-27] MEDS: Calcitriol CAP* 0.25 MCG PO SCH (10:26)
[2017-06-27] MEDS: LORazepam TAB(*) 1 MG PO SCH (10:27)
[2017-06-27] MEDS: Magnesium Oxide TAB* 400 MG PO SCH (10:27)
[2017-06-27] MEDS: Fluticasone NASAL SPRAY 50MCG* 16 gm SPRAY BTL BOTH NARES SCH (11:07)
[2017-06-27] MEDS ORDERED: predniSONE TAB* 10 MG PO SCH (14:28)
--- NOTE | 2017-06-27 14:29 | PN ---
Subjective Date of Service: 06/27/17 Interval History: Patient states she is breathing better but needs more time to get stronger so she can go home. Family History: Unchanged from Admission Social History: Unchanged from Admission Past Medical History: Unchanged from Admission Objective Active Medications: Acetaminophen (Tylenol Tab*) 650 mg PO Q6H PRN PRN Reason: pain/fever Last Admin: 06/25/17 01:14 Dose: 650 mg Amlodipine Besylate (Norvasc Tab*) 5 mg PO DAILY [facility] Last Admin: 06/27/17 10:26 Dose: 5 mg Aspirin (Aspirin Ec Tab*) 81 mg PO DAILY [facility] Last Admin: 06/27/17 10:26 Dose: 81 mg Calcitriol (Rocaltrol Cap*) 0.25 mcg PO QAM [facility] Last Admin: 06/27/17 10:26 Dose: 0.25 mcg Cinacalcet (Sensipar Tab*) 30 mg PO QAM [facility] Last Admin: 06/27/17 10:26 Dose: 30 mg Fluticasone Propionate (Flonase Nasal [place] 50mcg*) 2 spray BOTH NARES DAILY [facility] Last Admin: 06/27/17 11:07 Dose: Not Given Guaifenesin (Mucinex*) 600 mg PO BID PRN PRN Reason: CONGESTION Last Admin: 06/27/17 10:26 Dose: 600 mg Ipratropium [place] (Atrovent 0.5 Mg Neb.Vesna*) 0.5 mg INH [id number] AWAKE [facility] Last Admin: 06/27/17 13:48 Dose: 0.5 mg Lorazepam (Ativan Tab(*)) 0.5 mg PO TID [facility] Last Admin: 06/27/17 10:27 Dose: 0.5 mg Magnesium Oxide (Magox 400 Tab*) 400 mg PO BID [facility] Last Admin: 06/27/17 10:27 Dose: 400 mg Melatonin (Melatonin (Nf)) 3 mg PO BEDTIME PRN PRN Reason: INSOMNIA Last Admin: 06/27/17 02:43 Dose: 3 mg Morphine Sulfate (Ms Contin(*)) 15 mg PO Q12H [facility] Last Admin: 06/27/17 10:26 Dose: 15 mg Opium Tincture (Opium Tincture*) 6 mg PO FIVE TIMES DAILY [facility] Last Admin: 06/27/17 10:25 Dose: 6 mg Paroxetine HCl (Paxil Tab*) 30 mg PO QPM [facility] Last Admin: 06/26/17 16:42 Dose: 30 mg Pharmacy Profile Note (Coumadin Daily Reminder*) 0 note FOLLOW UP 1700 [facility] Last Admin: 06/26/17 16:42 Dose: 1 note Prednisone (Deltasone Tab*) 30 mg PO 0900 [facility] Last Admin: 06/27/17 10:26 Dose: 30 mg Sodium Chloride (Sodium Chloride 0.65% Nasal [place]*) 1 spray BOTH NARES Q4H PRN PRN Reason: Dry nasal passages Tiotropium [place] (Spiriva Cap.Inh*) 1 cap INH DAILY [facility] Last Admin: 06/27/17 07:57 Dose: 1 cap Warfarin Sodium (Coumadin Tab(*)) 2 mg PO DAILY@1700 [facility] PRN Reason: Protocol Last Admin: 06/26/17 16:43 Dose: 2 mg Vital Signs - 8 hr 06/27/17 06/27/17 06/27/17 07:20 07:59 08:00 Temperature 98.6 F Pulse Rate 57 70 Respiratory 17 17 26 Rate Blood Pressure 144/66 (mmHg) O2 Sat by Pulse 100 98 Oximetry 06/27/17 06/27/17 06/27/17 08:28 10:25 10:26 Temperature Pulse Rate Respiratory 22 20 20 Rate Blood Pressure (mmHg) O2 Sat by Pulse Oximetry 06/27/17 06/27/17 06/27/17 10:27 13:01 13:02 Temperature Pulse Rate Respiratory 20 16 16 Rate Blood Pressure (mmHg) O2 Sat by Pulse Oximetry 06/27/17 13:50 Temperature Pulse Rate 74 Respiratory 17 Rate Blood Pressure (mmHg) O2 Sat by Pulse 98 Oximetry Oxygen Devices in Use Now: Nasal Cannula Appearance: Alert, in a chair. In fair spirits. Looks comfortable. Eyes: No Scleral Icterus Respiratory: Symmetrical Chest Expansion and Respiratory Effort, Clear to Percussion, - - mild rhonchi BL Cardiovascular: NL Sounds; No Murmurs; No JVD, RRR, No Edema, - Extremities: No Edema, No Clubbing, Cyanosis, - Skin: No Rash or Ulcers, No Nodules or Sclerosis, - Neurological: Alert and Oriented x 3, NL Sensation Result Diagrams: 06/26/17 11:06 06/26/17 11:06 Additional Lab and Data: . Microbiology and Other Data: Microbiology 06/17/17 09:22 Legionella Urinary Antigen - Final Urine Negative Legionella Antigen Streptococcus pneumoniae Ag Screen - Final Negative S. pneumo Antigen Assess/Plan/Problems-Billing . Assessment: 71 yo female with h/o severe COPD, lung cancer (and recurrence), s/p radiation, now with worsening SOB for acute COPD exacerbation and hypoxic respiratory failure Medically complex patient with Crohn's s/p ileostomy with high output, on Opium as antimotility agent - Patient Problems (1) COPD exacerbation Current Visit: Yes Status: Acute Priority: High Code(s): J44.1 - CHRONIC OBSTRUCTIVE PULMONARY DISEASE W (ACUTE) EXACERBATION SNOMED Code(s): 607893417934099 Comment: - Regressed with need for rescue BiPAP 06/19 and 06/20 - now doing much better and is back at her baseline. - Certainly anxiety component - BiPAP available as patient needs - Scheduled morphine seems to help - Spiriva daily, PRN Levalbuterol - Prednisone taper, 25 mg 06/27, continue taper - finished azith and ceftri - 6 day course. (2) Lung cancer Current Visit: No Status: Acute Code(s): C34.90 - MALIGNANT NEOPLASM OF UNSP PART OF UNSP BRONCHUS OR LUNG SNOMED Code(s): 866617971 Comment: Fup with Dr. Wang as outpt. (3) History of DVT (deep vein thrombosis) Current Visit: Yes Status: Chronic Priority: High Code(s): Z86.718 - PERSONAL HISTORY OF OTHER VENOUS THROMBOSIS AND EMBOLISM SNOMED Code(s): 391741966 Comment: - Warfarin (4) Tobacco abuse Current Visit: No Status: Acute Code(s): Z72.0 - TOBACCO USE SNOMED Code(s ): 421338484 Comment: Pt advised to quit smoking and avoid second hand smoke. Status and Disposition: . Inpatient. Patients goal was to return to home at discharge. It was discussed with her at length that to meet that goal she needs to be compliant with PT and she frequently refuses to get OOB with the nurse and/or not work with PT. the patient is very weak and has little reserve. She is medically stable for discharge at this point other than her deconditioning and weakness. There is a family meeting tomorrow at 230pm to discuss options with the patient and her , along with rn case manager hospice.
== END 2017-06-27 15:33 | disposition swing bed (61) | DRG 190 ==
LOC: ED 09:03 → MED 14:42 → ICU 06-19 18:39 → MEDTELE 06-22 09:47 → MED 06-25 00:33
PROVIDERS: ADMIT Internal Medicine; ATTEND Internal Medicine
PROC: 5A09357 Assistance with Respiratory Ventilation, Less than 24 Consecutive Hours, Continuous Positive Airway Pressure (ICD-10-PCS; principal; 2017-06-17)
DX: J44.1 Chronic obstructive pulmonary disease with (acute) exacerbation (principal); J96.21 Acute and chronic respiratory failure with hypoxia; K50.90 Crohn's disease, unspecified, without complications; N17.9 Acute kidney failure, unspecified; C34.90 Malignant neoplasm of unspecified part of unspecified bronchus or lung; F41.9 Anxiety disorder, unspecified; F32.9 Major depressive disorder, single episode, unspecified; G62.9 Polyneuropathy, unspecified; M81.0 Age-related osteoporosis without current pathological fracture; I12.9 Hypertensive chronic kidney disease with stage 1 through stage 4 chronic kidney disease, or unspecified chronic kidney disease; R74.8 Abnormal levels of other serum enzymes; F17.210 Nicotine dependence, cigarettes, uncomplicated; G25.81 Restless legs syndrome; Z66 Do not resuscitate; I48.91 Unspecified atrial fibrillation; G47.33 Obstructive sleep apnea (adult) (pediatric); Z85.118 Personal history of other malignant neoplasm of bronchus and lung; Z87.01 Personal history of pneumonia (recurrent); Z92.3 Personal history of irradiation; Z88.1 Allergy status to other antibiotic agents; Z88.7 Allergy status to serum and vaccine; Z86.718 Personal history of other venous thrombosis and embolism; Z86.711 Personal history of pulmonary embolism; Z93.2 Ileostomy status; Z90.49 Acquired absence of other specified parts of digestive tract; Z98.42 Cataract extraction status, left eye; Z98.41 Cataract extraction status, right eye; Z86.14 Personal history of Methicillin resistant Staphylococcus aureus infection; Z83.79 Family history of other diseases of the digestive system; Z72.89 Other problems related to lifestyle; Z99.81 Dependence on supplemental oxygen; Z83.3 Family history of diabetes mellitus; Z82.49 Family history of ischemic heart disease and other diseases of the circulatory system; Z91.19 Patient's noncompliance with other medical treatment and regimen
CPT/HCPCS: 36415; 36600; 71045; 71250; 80048; 80053; 80076; 80320; 80329; 81003; 81015; 82140; 82553; 82803; 83605; 83690; 83735; 83880; 84100; 84443; 84484; 85025; 85027; 85060; 85379; 85610; 85730; 86140; 87040; 87086; 87899; 93005; 93308; 93970; 94640; 94660; 94760; 99285; A9270-GY; G0480; G8978-GP-CL; G8979-GP-CK; J0456; J0696; J1650; J1940; J2270; J2920; J2930; J7512

== ENCOUNTER 2017-06-27 15:33 | Inpatient (IN) | payer MEDICARE ==
[2017-06-27] MEDS ORDERED: Albuterol HFA INHALER* 8 gm MDI INH PRN (16:40)
[2017-06-27] MEDS ORDERED: guaiFENesin ER TAB 600 MG PO PRN (16:40)
[2017-06-27] MEDS ORDERED: Cyanocobalamin INJ * 1,000 MCG/ML VIAL 1 ML VIAL IM SCH (17:00)
[2017-06-27] MEDS: PARoxetine HCL TAB* 20 MG PO SCH (17:09)
[2017-06-27] MEDS: Opium Tincture* 6 MG/0.6 ML ORAL.LIQ SYRINGE PO SCH ×2 (17:09→21:15)
[2017-06-27] MEDS: Artificial Tears* 15 ML BTL BOTH EYES PRN (17:09)
[2017-06-27] MEDS: Clotrimazole TROCHE* 10 MG TROCHE PO SCH ×2 (17:10→22:14)
[2017-06-27] MEDS: Warfarin TAB(*) 2 MG PO SCH (17:10)
[2017-06-27] MEDS: LORazepam TAB(*) 0.5 MG PO SCH ×3 (17:10→22:52)
[2017-06-27] MEDS: Ipratropium 0.5MG/2.5ML NEB* 0.5 MG/2.5 ML NEB.SOLN INH PRN ×2 (17:45→22:51)
[2017-06-27] MEDS: Magnesium Oxide TAB* 400 MG PO SCH (21:11)
[2017-06-27] MEDS: Heparin VIAL(*) 5000 UNITS/ML VIAL (FIVE THOUSAND) SUBCUT SCH (22:06)
[2017-06-27] MEDS: Morphine TAB Extended Release (*) 15 MG TAB.ER PO SCH (22:09)
[2017-06-28] MEDS: Heparin VIAL(*) 5000 UNITS/ML VIAL (FIVE THOUSAND) SUBCUT SCH ×2 (05:59→14:41)
[2017-06-28] MEDS: Ipratropium 0.5MG/2.5ML NEB* 0.5 MG/2.5 ML NEB.SOLN INH PRN ×3 (08:51→23:16)
[2017-06-28] MEDS: Tiotropium CAP.INH* CAP.INH/18 MCG (USE ORDER SET !) INH SCH (08:52)
[2017-06-28] MEDS: Opium Tincture* 6 MG/0.6 ML ORAL.LIQ SYRINGE PO SCH ×4 (08:58→20:39)
[2017-06-28] MEDS: Calcitriol CAP* 0.25 MCG PO SCH (08:59)
[2017-06-28] MEDS: Clotrimazole TROCHE* 10 MG TROCHE PO SCH ×4 (08:59→20:37)
[2017-06-28] MEDS: Cinacalcet TAB* 30 MG PO SCH (08:59)
[2017-06-28] MEDS: LORazepam TAB(*) 0.5 MG PO SCH ×3 (08:59→20:37)
[2017-06-28] MEDS ORDERED: predniSONE TAB* 50 MG PO SCH (09:00)
[2017-06-28] MEDS: Morphine TAB Extended Release (*) 15 MG TAB.ER PO SCH ×2 (09:00→21:22)
[2017-06-28] MEDS: amLODIPine TAB* 5 MG PO SCH (09:00)
[2017-06-28] MEDS: Aspirin EC TAB* 81 MG TAB.EC PO SCH (09:00)
[2017-06-28] MEDS ORDERED: Spiriva Inhaler DEVICE* 1 EACH DEVICE INH ONE (09:00)
[2017-06-28] MEDS: Magnesium Oxide TAB* 400 MG PO SCH ×2 (09:00→20:37)
[2017-06-28] MEDS: guaiFENesin ER TAB 600 MG PO SCH ×3 (09:00→21:02)
[2017-06-28] MEDS: Artificial Tears* 15 ML BTL BOTH EYES PRN (09:06)
--- NOTE | 2017-06-28 12:28 | ADMNOTE ---
Subjective Date of Service: 06/28/17 Interval History: DISCHARGE SUMMARY FOR 06/27/17: ADMISSION HISTORY AND PHYSICAL EXAM: Allergies Allergy/AdvReac Type Severity Reaction Status Date / Time daptomycin Allergy See Comment Verified 05/17/17 13:46 doxycycline Allergy Vomiting Verified 05/17/17 13:46 epinephrine Allergy See Comment Verified 05/17/17 13:46 infliximab [From Remicade] Allergy Swelling Verified 05/17/17 13:46 levofloxacin [From Levaquin] Allergy Rash Verified 05/17/17 13:46 tetanus toxoid, adsorbed Allergy Swelling Verified 05/17/17 13:46 vancomycin Allergy Wheezing Verified 05/17/17 13:46 eggplant Allergy Mild Difficulty Uncoded 01/22/17 23:59 Breathing Home Medications Medication Instructions Recorded Confirmed Type Opium Tincture* [Opium*] 0.6 ml PO SEE INSTRUCTIONS MDD 24 01/18/13 06/27/17 History mg Cinacalcet TAB* [Sensipar TAB*] 30 mg PO QAM 04/23/13 06/27/17 History Calcitriol CAP* [Rocaltrol CAP*] 0.25 mcg PO QAM 05/13/16 06/27/17 History Cyanocobalamin INJ * [Vitamin B12 1,000 mcg IM WEEKLY 05/13/16 06/27/17 History INJ *] PARoxetine HCL TAB* [Paxil TAB*] 30 mg PO QPM 05/13/16 06/27/17 History guaiFENesin ER TAB [Mucinex*] 600 mg PO BID PRN 05/13/16 06/27/17 History Ipratropium 0.5MG/2.5ML NEB* 0.5 mg INH Q6HR PRN 10/20/16 06/27/17 History [Atrovent 0.5 MG NEB.ALFIE*] LORazepam TAB(*) [Ativan 1 MG TAB 0.5 mg PO TID MDD 6 10/20/16 06/27/17 History (*)] Aspirin EC TAB* [Ecotrin EC Low 81 mg PO DAILY 05/17/17 06/27/17 History Dose 81 MG*] Acetaminophen TAB* [Tylenol TAB*] 650 mg PO Q6H PRN tab 05/23/17 06/27/17 Rx Magnesium Oxide TAB* [MagOx 400 400 mg PO BID #60 tab 05/23/17 06/27/17 Rx TAB*] Albuterol HFA INHALER* [Ventolin 2 puff INH Q4H PRN 06/16/17 06/27/17 History HFA Inhaler*] Clotrimazole GURU* [Mycelex 10 mg PO SEE INSTRUCTIONS 06/16/17 06/27/17 History Guru*] Tiotropium CAP.INH* [Spiriva 1 cap INH DAILY 06/16/17 06/27/17 History CAP.INH*] Warfarin TAB(*) [Coumadin TAB(*)] 2 mg PO DAILY 06/16/17 06/27/17 History HPI: The patient was admitted to an acute hospital bed 06/16/17 with cc SOB. She was treated for a COPD exacerbation and changed to swing bed status on 06/27/17. There has been no significant clinical change since 06/27. She states she had a good night's sleep last night. Family History: Findings - Paternal GF had diabetes, father had heart disease Social History: Findings - Smokes 2ppd. Lives with her partner Nikki montesinos who is her SDM. Past Medical History: Findings - Colectomy/ileostomy for Crohn's disease, mult abdominal surgeries for Crohn's, AV fistula L arm x 3. Review of Systems - Measurements Intake and Output: Intake and Output Last 24 Hours 06/26/17 06/27/17 06/28/17 06/29/17 06:59 06:59 06:59 06:59 Intake Total 0 600 Output Total 1800 Balance -1800 600 Weight 151 lb 6.4 oz Intake: Oral 0 600 Output: Urine 0 Mcgill 1100 Colostomy 350 Ileostomy 350 Other: Estimated Stool Amount Large - Review of Systems Constitutional Symptoms: Negative: Weight Gain, Weight Loss, Weakness, Fatigue, Fever, Night Sweats, Unexplained Falls, Other Dermatology: Negative: Normal, Rash, Skin Lesions, Cancer, Skin Lumps, Other HEENT: Negative: Normal, Change in Hearing, Vertigo, Dental Problems, Tinnitus, Sinus Problem, Other Eyes: Negative: Normal, Change in Vision, Double Vision, Eye Pain, Glaucoma, Cataract, Contacts or Glasses, Other Thyroid: Negative: Normal, Goiter, Thyroid Nodule, Cold Intolerance, Heat Intolerance , Sweatiness, Tremor, Frequent Defecation, Constipation, Palpitations, Primary Hypothyroidism, Primary Hyperthyroidism, Weight Loss, Weight Gain, Change in Skin/Hair, Change in Menstruation, Radiation Exposure, Other Pulmonary: Positive: Shortness of Breath, COPD Cardiology: Positive: Normal Gastroenterology: Positive: Normal Genital - Urinary: Positive: Normal Musculoskeletal: Negative: Joint Pain, Joint Stiffness, Arthritis, Osteoporosis, Low Back Pain , Sciatica, Joint Deformities, Kyphoscoliosis, Other Endocrinology: Positive: Normal Hematologic/Lymphatic: Positive: Anemia Neurology: Positive: Normal Psychiatry: Positive: Depression Allergic/Immunologic: Negative: Hx Anaphylaxis, Hx Angioedema, Hx Environmental, Hx Seasonal, Athsma, Hx HIV, Immunocompromise, Swollen Glands LymphNodes, Other Objective Active Medications: Acetaminophen (Tylenol Tab*) 650 mg PO Q6H PRN PRN Reason: pain/fever Albuterol (Ventolin Hfa Inhaler*) 2 puff INH Q4H PRN PRN Reason: SOB/WHEEZING Amlodipine Besylate (Norvasc Tab*) 5 mg PO DAILY [facility] Last Admin: 06/28/17 09:00 Dose: 5 mg Aspirin (Aspirin Ec Tab*) 81 mg PO DAILY [facility] Last Admin: 06/28/17 09:00 Dose: 81 mg Calcitriol (Rocaltrol Cap*) 0.25 mcg PO QAM [facility] Last Admin: 06/28/17 08:59 Dose: 0.25 mcg Cinacalcet (Sensipar Tab*) 30 mg PO QAM [facility] Last Admin: 06/28/17 08:59 Dose: 30 mg Clotrimazole (Mycelex Guru*) 10 mg PO QID [facility] Last Admin: 06/28/17 08:59 Dose: 10 mg Cyanocobalamin (Vitamin B12 Inj *) 1,000 mcg IM WEEKLY [facility] Guaifenesin (Mucinex*) 600 mg PO BID [facility] Last Admin: 06/28/17 09:00 Dose: 600 mg Heparin Sodium (Porcine) (Heparin Vial(*)) 5,000 units SUBCUT Q8HR [facility] Last Admin: 06/28/17 05:59 Dose: Not Given Ipratropium Uneeda (Atrovent 0.5 Mg Neb.Alfie*) 0.5 mg INH Q6HR PRN PRN Reason: WHEEZING Last Admin: 06/28/17 08:51 Dose: 0.5 mg Lorazepam (Ativan Tab(*)) 0.5 mg PO TID [facility] Last Admin: 06/28/17 08:59 Dose: 0.5 mg Magnesium Oxide (Magox 400 Tab*) 400 mg PO BID [facility] Last Admin: 06/28/17 09:00 Dose: 400 mg Morphine Sulfate (Ms Contin(*)) 15 mg PO Q12H [facility] Last Admin: 06/28/17 09:00 Dose: 15 mg Opium Tincture (Opium Tincture*) 6 mg PO QID [facility] Last Admin: 06/28/17 08:58 Dose: 6 mg Paroxetine HCl (Paxil Tab*) 30 mg PO QPM [facility] Last Admin: 06/27/17 17:09 Dose: 30 mg Polyvinyl Alcohol (Polyvinyl Alcohol 1.4% Opth*) 1 drop BOTH EYES Q2H PRN PRN Reason: DRY EYE Last Admin: 06/28/17 09:06 Dose: 1 drop Prednisone (Deltasone Tab*) 25 mg PO DAILY [facility] Last Admin: 06/28/17 08:59 Dose: 25 mg Tiotropium Uneeda (Spiriva Cap.Inh*) 1 cap INH DAILY [facility] Last Admin: 06/28/17 08:52 Dose: 1 cap Warfarin Sodium (Coumadin Tab(*)) 2 mg PO DAILY@1700 [facility] PRN Reason: Protocol Last Admin: 06/27/17 17:10 Dose: 2 mg Vital Signs - 8 hr 06/28/17 06/28/17 06/28/17 07:50 08:00 08:55 Temperature 96.2 F Pulse Rate 58 66 Respiratory 18 20 16 Rate Blood Pressure 134/63 (mmHg) O2 Sat by Pulse 100 100 Oximetry 06/28/17 06/28/17 06/28/17 08:58 08:59 09:00 Temperature Pulse Rate Respiratory 20 20 20 Rate Blood Pressure (mmHg) O2 Sat by Pulse Oximetry 06/28/17 11:40 Temperature 96.1 F Pulse Rate 68 Respiratory 15 Rate Blood Pressure 138/50 (mmHg) O2 Sat by Pulse 97 Oximetry Oxygen Devices in Use Now: BiPAP Appearance: Alert, using BIPAP, lying on her L side. In fair spirits. Looks comfortable. Eyes: No Scleral Icterus Neck: NL Appearance and Movements; NL JVP, No Thyroid Enlargement, Masses Respiratory: Symmetrical Chest Expansion and Respiratory Effort, Clear to Percussion, - - mild rhonchi BL Cardiovascular: NL Sounds; No Murmurs; No JVD, RRR, No Edema, - Extremities: No Edema, No Clubbing, Cyanosis, - Skin: No Rash or Ulcers, No Nodules or Sclerosis, - Neurological: Alert and Oriented x 3, NL Sensation Assess/Plan/Problems-Billing Assessment: - Patient Problems (1) COPD exacerbation Current Visit: No Status: Acute Priority: High Code(s): J44.1 - CHRONIC OBSTRUCTIVE PULMONARY DISEASE W (ACUTE) EXACERBATION SNOMED Code(s): 346782708613509 Comment: - Regressed with need for rescue BiPAP 06/19 and 06/20 - now doing much better and is back at her baseline. - Certainly anxiety component - BiPAP available as patient needs - Scheduled morphine seems to help - Spiriva daily, PRN Levalbuterol - Prednisone taper, 20 mg 5/, continue taper. - finished azith and ceftri - 6 day course. (2) Crohn's disease Current Visit: No Status: Chronic Code(s): K50.90 - CROHN'S DISEASE, UNSPECIFIED, WITHOUT COMPLICATIONS SNOMED Code(s): 21952202 Comment: S/P ileostomy with hx of high oupt - Continue home dose tincture of opium (3) Anxiety Current Visit: No Status: Acute Priority: High Code(s): F41.9 - ANXIETY DISORDER, UNSPECIFIED SNOMED Code(s): 50486950 Comment: - Certainly an anxiety component - Continue morphine SR 15 mg PO Q12. - Continue Ativan 0.5 mg PO TID (4) History of DVT (deep vein thrombosis) Current Visit: No Status: Chronic Priority: High Code(s): Z86.718 - PERSONAL HISTORY OF OTHER VENOUS THROMBOSIS AND EMBOLISM SNOMED Code(s): 519790456 Comment: - Warfarin (5) History of pulmonary embolism Current Visit: No Status: Chronic Priority: Medium Code(s): Z86.711 - PERSONAL HISTORY OF PULMONARY EMBOLISM SNOMED Code(s): 685394976 Comment: Continue warfarin. INR 5/6. (6) CKD (chronic kidney disease) stage 3, GFR 30-59 ml/min Current Visit: No Status: Chronic Code(s): N18.3 - CHRONIC KIDNEY DISEASE, STAGE 3 (MODERATE) SNOMED Code(s): 256118570 Comment: Est GFR 32.8 5/3/18. (7) Lung cancer Current Visit: No Status: Acute Code(s): C34.90 - MALIGNANT NEOPLASM OF UNSP PART OF UNSP BRONCHUS OR LUNG SNOMED Code(s): 072711029 Comment: Fup with Dr. Wang as outpt. (8) Tobacco abuse Current Visit: No Status: Acute Code(s): Z72.0 - TOBACCO USE SNOMED Code(s ): 896404071 Comment: Pt advised to quit smoking and avoid second hand smoke.
[2017-06-28] MEDS: PARoxetine HCL TAB* 20 MG PO SCH (18:22)
[2017-06-28] MEDS: Warfarin TAB(*) 2 MG PO SCH (18:22)
[2017-06-28] MEDS: Acetaminophen TAB* 325 MG PO PRN (21:26)
[2017-06-29] MEDS: Opium Tincture* 6 MG/0.6 ML ORAL.LIQ SYRINGE PO SCH ×4 (09:05→20:07)
[2017-06-29] MEDS: predniSONE TAB* 50 MG PO SCH (09:05)
[2017-06-29] MEDS: guaiFENesin ER TAB 600 MG PO SCH ×2 (09:06→19:44)
[2017-06-29] MEDS: Aspirin EC TAB* 81 MG TAB.EC PO SCH (09:06)
[2017-06-29] MEDS: Magnesium Oxide TAB* 400 MG PO SCH ×2 (09:06→19:51)
[2017-06-29] MEDS: Calcitriol CAP* 0.25 MCG PO SCH (09:06)
[2017-06-29] MEDS: amLODIPine TAB* 5 MG PO SCH (09:06)
[2017-06-29] MEDS: Cinacalcet TAB* 30 MG PO SCH (09:06)
[2017-06-29] MEDS: Morphine TAB Extended Release (*) 15 MG TAB.ER PO SCH ×2 (09:06→21:27)
[2017-06-29] MEDS: LORazepam TAB(*) 0.5 MG PO SCH ×3 (09:06→20:08)
[2017-06-29] MEDS: Clotrimazole TROCHE* 10 MG TROCHE PO SCH ×4 (09:06→20:10)
[2017-06-29] MEDS: Tiotropium CAP.INH* CAP.INH/18 MCG (USE ORDER SET !) INH SCH (09:19)
[2017-06-29] MEDS: Ipratropium 0.5MG/2.5ML NEB* 0.5 MG/2.5 ML NEB.SOLN INH PRN ×3 (09:19→20:17)
[2017-06-29 14:37] LABS: INR 2.04 (0.77-1.02)
[2017-06-29] MEDS: Warfarin TAB(*) 2 MG PO SCH (16:09)
[2017-06-29] MEDS: Artificial Tears* 15 ML BTL BOTH EYES PRN ×2 (16:09→19:51)
[2017-06-29] MEDS: PARoxetine HCL TAB* 20 MG PO SCH (16:09)
[2017-06-29] MEDS: Acetaminophen TAB* 325 MG PO PRN (19:46)
[2017-06-30] MEDS ORDERED: Benzocaine/Menthol LOZ* 1 LOZENGE PO PRN (00:44)
[2017-06-30] MEDS: Ipratropium 0.5MG/2.5ML NEB* 0.5 MG/2.5 ML NEB.SOLN INH PRN ×4 (02:53→21:20)
[2017-06-30] MEDS: Tiotropium CAP.INH* CAP.INH/18 MCG (USE ORDER SET !) INH SCH (08:08)
[2017-06-30] MEDS: Morphine TAB Extended Release (*) 15 MG TAB.ER PO SCH ×2 (09:24→21:31)
[2017-06-30] MEDS: LORazepam TAB(*) 0.5 MG PO SCH ×3 (09:25→21:30)
[2017-06-30] MEDS: Opium Tincture* 6 MG/0.6 ML ORAL.LIQ SYRINGE PO SCH ×4 (09:25→21:29)
[2017-06-30] MEDS: predniSONE TAB* 20 MG PO SCH (09:25)
[2017-06-30] MEDS: Magnesium Oxide TAB* 400 MG PO SCH ×2 (09:25→21:30)
[2017-06-30] MEDS: Calcitriol CAP* 0.25 MCG PO SCH (09:26)
[2017-06-30] MEDS: amLODIPine TAB* 5 MG PO SCH (09:26)
[2017-06-30] MEDS: guaiFENesin ER TAB 600 MG PO SCH ×2 (09:26→21:30)
[2017-06-30] MEDS: Cinacalcet TAB* 30 MG PO SCH (09:26)
[2017-06-30] MEDS: Aspirin EC TAB* 81 MG TAB.EC PO SCH (09:26)
[2017-06-30] MEDS: Clotrimazole TROCHE* 10 MG TROCHE PO SCH ×5 (12:59→21:29)
[2017-06-30] MEDS: predniSONE TAB* 50 MG PO SCH (16:52)
[2017-06-30] MEDS: Warfarin TAB(*) 2 MG PO SCH (17:58)
[2017-06-30] MEDS: PARoxetine HCL TAB* 20 MG PO SCH (18:00)
[2017-07-01] MEDS: Tiotropium CAP.INH* CAP.INH/18 MCG (USE ORDER SET !) INH SCH (07:56)
[2017-07-01] MEDS: Ipratropium 0.5MG/2.5ML NEB* 0.5 MG/2.5 ML NEB.SOLN INH PRN ×3 (07:56→20:22)
[2017-07-01] MEDS: Artificial Tears* 15 ML BTL BOTH EYES PRN (09:33)
[2017-07-01] MEDS: Aspirin EC TAB* 81 MG TAB.EC PO SCH (09:34)
[2017-07-01] MEDS: Cinacalcet TAB* 30 MG PO SCH (09:34)
[2017-07-01] MEDS: predniSONE TAB* 20 MG PO SCH (09:34)
[2017-07-01] MEDS: Calcitriol CAP* 0.25 MCG PO SCH (09:34)
[2017-07-01] MEDS: Morphine TAB Extended Release (*) 15 MG TAB.ER PO SCH ×2 (09:34→21:53)
[2017-07-01] MEDS: LORazepam TAB(*) 0.5 MG PO SCH ×3 (09:34→21:53)
[2017-07-01] MEDS: amLODIPine TAB* 5 MG PO SCH (09:35)
[2017-07-01] MEDS: Magnesium Oxide TAB* 400 MG PO SCH ×2 (09:35→21:53)
[2017-07-01] MEDS: Clotrimazole TROCHE* 10 MG TROCHE PO SCH ×4 (09:35→22:18)
[2017-07-01] MEDS: guaiFENesin ER TAB 600 MG PO SCH ×2 (09:35→21:53)
[2017-07-01] MEDS: Opium Tincture* 6 MG/0.6 ML ORAL.LIQ SYRINGE PO SCH ×4 (09:36→21:52)
[2017-07-01] MEDS: Warfarin TAB(*) 2 MG PO SCH (17:09)
[2017-07-01] MEDS: PARoxetine HCL TAB* 20 MG PO SCH (17:17)
--- NOTE | 2017-07-01 18:52 | PN ---
Subjective Date of Service: 06/30/17 Interval History: Feels that she is getting better. She looks forward to getting out of bed today. She has no complaints, breathing is comfortable on her home O2. Family History: Findings - Paternal GF had diabetes, father had heart disease Social History: Findings - Smokes 2ppd. Lives with her partner Nikki montesinos who is her SDM. Past Medical History: Findings - Colectomy/ileostomy for Crohn's disease, mult abdominal surgeries for Crohn's, AV fistula L arm x 3. Objective Active Medications: Acetaminophen (Tylenol Tab*) 650 mg PO Q6H PRN PRN Reason: pain/fever Last Admin: 06/29/17 19:46 Dose: 650 mg Albuterol (Ventolin Hfa Inhaler*) 2 puff INH Q4H PRN PRN Reason: SOB/WHEEZING Amlodipine Besylate (Norvasc Tab*) 5 mg PO DAILY [facility] Last Admin: 07/01/17 09:35 Dose: 5 mg Aspirin (Aspirin Ec Tab*) 81 mg PO DAILY [facility] Last Admin: 07/01/17 09:34 Dose: 81 mg Calcitriol (Rocaltrol Cap*) 0.25 mcg PO QAM [facility] Last Admin: 07/01/17 09:34 Dose: 0.25 mcg Cinacalcet (Sensipar Tab*) 30 mg PO QAM [facility] Last Admin: 07/01/17 09:34 Dose: 30 mg Clotrimazole (Mycelex Guru*) 10 mg PO QID [facility] Last Admin: 07/01/17 17:09 Dose: 10 mg Cyanocobalamin (Vitamin B12 Inj *) 1,000 mcg IM WEEKLY [facility] Guaifenesin (Mucinex*) 600 mg PO BID [facility] Last Admin: 07/01/17 09:35 Dose: 600 mg Ipratropium Butler (Atrovent 0.5 Mg Neb.Vesna*) 0.5 mg INH Q6HR PRN PRN Reason: WHEEZING Last Admin: 07/01/17 14:05 Dose: 0.5 mg Lorazepam (Ativan Tab(*)) 0.5 mg PO TID [facility] Last Admin: 07/01/17 13:27 Dose: 0.5 mg Magnesium Oxide (Magox 400 Tab*) 400 mg PO BID [facility] Last Admin: 07/01/17 09:35 Dose: 400 mg Morphine Sulfate (Ms Contin(*)) 15 mg PO Q12H [facility] Last Admin: 07/01/17 09:34 Dose: 15 mg Opium Tincture (Opium Tincture*) 6 mg PO QID [facility] Last Admin: 07/01/17 17:08 Dose: 6 mg Paroxetine HCl (Paxil Tab*) 30 mg PO QPM [facility] Last Admin: 07/01/17 17:17 Dose: 30 mg Polyvinyl Alcohol (Polyvinyl Alcohol 1.4% Opth*) 1 drop BOTH EYES Q2H PRN PRN Reason: DRY EYE Last Admin: 07/01/17 09:33 Dose: 1 drop Prednisone (Deltasone Tab*) 20 mg PO DAILY [facility] Last Admin: 07/01/17 09:34 Dose: 20 mg Throat Lozenges (Chloraseptic Bradford*) 1 bradford PO Q6H PRN PRN Reason: SORE THROAT Tiotropium Butler (Spiriva Cap.Inh*) 1 cap INH DAILY [facility] Last Admin: 07/01/17 07:56 Dose: 1 cap Warfarin Sodium (Coumadin Tab(*)) 2 mg PO DAILY@1700 [facility] PRN Reason: Protocol Last Admin: 07/01/17 17:09 Dose: 2 mg Vital Signs - 8 hr 07/01/17 07/01/17 07/01/17 11:30 11:50 13:26 Temperature 98.6 F Pulse Rate 65 Respiratory 18 18 20 Rate Blood Pressure 138/44 (mmHg) O2 Sat by Pulse 97 Oximetry 07/01/17 07/01/17 07/01/17 13:27 14:06 17:08 Temperature Pulse Rate 73 Respiratory 20 18 16 Rate Blood Pressure (mmHg) O2 Sat by Pulse 98 Oximetry Oxygen Devices in Use Now: Nasal Cannula Appearance: alert, resting in bed, speaking in full sentences Eyes: No Scleral Icterus Neck: NL Appearance and Movements; NL JVP Respiratory: Symmetrical Chest Expansion and Respiratory Effort, Clear to Auscultation, - - prolonged expiratory phase with no wheezes or rhonchi Cardiovascular: NL Sounds; No Murmurs; No JVD, No Edema Abdominal: NL Sounds; No Tenderness; No Distention Lymphatic: No Cervical Adenopathy Extremities: No Edema Skin: No Rash or Ulcers Neurological: Alert and Oriented x 3 Assess/Plan/Problems-Billing Assessment: - Patient Problems (1) Acute and chronic respiratory failure with hypoxia Current Visit: No Status: Acute Priority: High Code(s): J96.21 - ACUTE AND CHRONIC RESPIRATORY FAILURE WITH HYPOXIA SNOMED Code(s): 72594338 Comment: Now back to her baseline Has been evaluated by hospice and deemed not a hospice candidate due to fev1 Slow prednsione taper down (still on 20mg) eventually down to 10 mg (home dose) , encourage home cpap, and smoking cessation (2) Anxiety Current Visit: No Status: Acute Priority: High Code(s): F41.9 - ANXIETY DISORDER, UNSPECIFIED SNOMED Code(s): 83559295 Comment: Continue morphine SR 15 mg PO Q12 and Ativan 0.5 mg PO TID (3) Mass of upper lobe of right lung Current Visit: No Status: Acute Priority: High Code(s): R91.8 - OTHER NONSPECIFIC ABNORMAL FINDING OF LUNG FIELD SNOMED Code(s): 654934371 Comment: Lung cancer - possible. mass on CT. follows with Dr. Wang/Dr. Burciaga - Dr. Wang looked at scans and her CT was discussed in Tumor Board including Dr. burciaga ... it is possible there is some growth but could also be fibrous tissue aorund the nodule that was there already. Needs outpatient follow up (4) Crohn's disease Current Visit: No Status: Chronic Code(s): K50.90 - CROHN'S DISEASE, UNSPECIFIED, WITHOUT COMPLICATIONS SNOMED Code(s): 31149373 Comment: S/P ileostomy with hx of high oupt - Continue home dose tincture of opium (5) History of DVT (deep vein thrombosis) Current Visit: No Status: Chronic Priority: High Code(s): Z86.718 - PERSONAL HISTORY OF OTHER VENOUS THROMBOSIS AND EMBOLISM SNOMED Code(s): 959017096 Comment: Warfarin, needs weekly INR (6) History of pulmonary embolism Current Visit: No Status: Chronic Priority: Medium Code(s): Z86.711 - PERSONAL HISTORY OF PULMONARY EMBOLISM SNOMED Code(s): 060124994 Comment: Continue warfarin. Status and Disposition: swing
[2017-07-02] MEDS: Ipratropium 0.5MG/2.5ML NEB* 0.5 MG/2.5 ML NEB.SOLN INH PRN ×4 (00:56→21:18)
[2017-07-02] MEDS: Tiotropium CAP.INH* CAP.INH/18 MCG (USE ORDER SET !) INH SCH (08:33)
[2017-07-02] MEDS: Morphine TAB Extended Release (*) 15 MG TAB.ER PO SCH ×2 (10:42→21:29)
[2017-07-02] MEDS: Calcitriol CAP* 0.25 MCG PO SCH (10:42)
[2017-07-02] MEDS: Cinacalcet TAB* 30 MG PO SCH (10:42)
[2017-07-02] MEDS: LORazepam TAB(*) 0.5 MG PO SCH ×3 (10:43→21:30)
[2017-07-02] MEDS: guaiFENesin ER TAB 600 MG PO SCH ×2 (10:43→21:29)
[2017-07-02] MEDS: Aspirin EC TAB* 81 MG TAB.EC PO SCH (10:43)
[2017-07-02] MEDS: Magnesium Oxide TAB* 400 MG PO SCH ×2 (10:43→21:30)
[2017-07-02] MEDS: predniSONE TAB* 20 MG PO SCH (10:43)
[2017-07-02] MEDS: amLODIPine TAB* 5 MG PO SCH (10:44)
[2017-07-02] MEDS: Clotrimazole TROCHE* 10 MG TROCHE PO SCH ×4 (10:44→21:30)
[2017-07-02] MEDS: Opium Tincture* 6 MG/0.6 ML ORAL.LIQ SYRINGE PO SCH ×4 (10:44→23:24)
[2017-07-02] MEDS: Warfarin TAB(*) 2 MG PO SCH (19:26)
[2017-07-02] MEDS: PARoxetine HCL TAB* 20 MG PO SCH (19:27)
[2017-07-03] MEDS ORDERED: LORazepam TAB(*) 0.5 MG PO ONE (02:51)
[2017-07-03 06:48] LABS: INR 2.77 (0.77-1.02)
[2017-07-03] MEDS: Tiotropium CAP.INH* CAP.INH/18 MCG (USE ORDER SET !) INH SCH (08:11)
[2017-07-03] MEDS: Ipratropium 0.5MG/2.5ML NEB* 0.5 MG/2.5 ML NEB.SOLN INH PRN (08:11)
--- NOTE | 2017-07-03 08:57 | PN ---
Progress Note - Progress Note Date of Service: 07/03/17 Note: Time spent on discharge 45 minutes.
[2017-07-03] MEDS ORDERED: predniSONE TAB* 5 MG PO SCH (09:00)
[2017-07-03] MEDS ORDERED: predniSONE TAB* 10 MG PO SCH (09:00)
[2017-07-03] MEDS: guaiFENesin ER TAB 600 MG PO SCH (10:25)
[2017-07-03] MEDS: Magnesium Oxide TAB* 400 MG PO SCH (10:25)
[2017-07-03] MEDS: Cinacalcet TAB* 30 MG PO SCH (10:25)
[2017-07-03] MEDS: Aspirin EC TAB* 81 MG TAB.EC PO SCH (10:25)
[2017-07-03] MEDS: Calcitriol CAP* 0.25 MCG PO SCH (10:25)
[2017-07-03] MEDS: amLODIPine TAB* 5 MG PO SCH (10:26)
[2017-07-03] MEDS: Opium Tincture* 6 MG/0.6 ML ORAL.LIQ SYRINGE PO SCH ×3 (10:31→17:13)
[2017-07-03] MEDS: LORazepam TAB(*) 0.5 MG PO SCH ×2 (10:32→13:41)
[2017-07-03] MEDS: Clotrimazole TROCHE* 10 MG TROCHE PO SCH ×4 (10:32→17:13)
[2017-07-03] MEDS: Morphine TAB Extended Release (*) 15 MG TAB.ER PO SCH (10:32)
[2017-07-03] MEDS ORDERED: Nicotine Inhaler* 10 MG AMP INH PRN (14:01)
[2017-07-03] MEDS ORDERED: Mouth Piece, Nicotine* 1 EACH CARTRIDGE INH PRN (14:01)
[2017-07-03 15:38] VITALS: BP 134/47
[2017-07-03] MEDS: Warfarin TAB(*) 2 MG PO SCH (17:12)
[2017-07-03] MEDS: PARoxetine HCL TAB* 20 MG PO SCH (17:12)
--- NOTE | 2017-07-04 02:22 | DS ---
CC: Dr. France * DISCHARGE SUMMARY: DATE OF ADMISSION: 06/27/17 DATE OF DISCHARGE: 07/03/17 HOSPITAL COURSE: This 72-year-old woman [facility] with shortness of breath. She was treated for COPD exacerbation and changed to swing bed status on 06/27/17. She initially refused physical therapy , but when she understood that she will not be able to go home without physical therapy, she did start to cooperate. She was able to walk adequately and to manage at home. She did complain of some blurry vision and some isiah feeling in her eyes. There was no redness in her eyes. I recommended she see her head baker within 4 days. We are also checking a fingerstick blood sugar. The patient will be finishing her prednisone taper at home. She was started on amlodipine for high blood pressure here and this will be continued. FINAL DIAGNOSES: 1. Chronic obstructive pulmonary disease with exacerbation. 2. Crohn disease. 3. Anxiety. 4. History of deep venous thrombosis. 5. Lung cancer. 6. History of pulmonary embolism. 7. Chronic kidney disease. 8. Tobacco abuse. DISCHARGE MEDICATIONS: 1. Amlodipine 5 mg daily. 2. Artificial Tears 1 drop every 2 hours p.r.n. 3. Prednisone 5 mg, to taper from 2 to 1 over 4 days. 4. Opium tincture 0.6 mL as prescribed. 5. Cinacalcet 30 mg daily. 6. Cyanocobalamin injection 1000 mcg IM weekly. 7. Paroxetine 30 mg h.s. 8. Guaifenesin ER 600 mg b.i.d. p.r.n. 9. Calcitriol 0.25 mcg daily. 10. Ipratropium by nebulizer 0.5 mg every 6 hours p.r.n. 11. Lorazepam 0.5 mg t.i.d. 12. Aspirin 81 mg daily. 13. Acetaminophen 650 mg every 6 hours p.r.n. 14. Magnesium oxide 400 mg b.i.d. 15. Tiotropium 1 capsule daily. 16. Clotrimazole shanell as prescribed. 17. Albuterol inhaler 2 puffs every 4 hours p.r.n. 18. Warfarin 2 mg daily. I note her INR on the day of discharge was 2.77. She will get an INR as an outpatient in 4 to 5 days. [id number]/[facility] #: [id number] MTDD
== END 2017-07-03 19:00 | disposition home health service (06) | DRG 190 ==
LOC: MED 15:33
PROVIDERS: ADMIT Internal Medicine; ATTEND Internal Medicine
DX: J44.1 Chronic obstructive pulmonary disease with (acute) exacerbation (principal); J96.21 Acute and chronic respiratory failure with hypoxia; C34.90 Malignant neoplasm of unspecified part of unspecified bronchus or lung; K50.90 Crohn's disease, unspecified, without complications; H53.8 Other visual disturbances; F17.210 Nicotine dependence, cigarettes, uncomplicated; N18.3 Chronic kidney disease, stage 3 (moderate); F41.9 Anxiety disorder, unspecified; Z86.718 Personal history of other venous thrombosis and embolism; Z88.1 Allergy status to other antibiotic agents; Z88.7 Allergy status to serum and vaccine; Z93.2 Ileostomy status; Z86.711 Personal history of pulmonary embolism; Z83.3 Family history of diabetes mellitus; Z82.49 Family history of ischemic heart disease and other diseases of the circulatory system; Z79.82 Long term (current) use of aspirin; Z79.01 Long term (current) use of anticoagulants
CPT/HCPCS: 36415; 85610; 94640; 94660; A9270-GY; G8978-GP-CJ; G8979-GP-CI; J1644; J7512

== ENCOUNTER 2017-09-08 15:32 | Emergency (ER) | payer MEDICARE ==
--- NOTE | 2017-09-08 16:29 | ED ---
Back Pain - HPI Summary HPI Summary: This is flor Antoine documenting for attending yRan Leavitt M.D. Pt is a 72 y/o female who presents to [facility] c/o back pain. Pt states she woke up 4 days ago at 3:00 with a coughing attack that lasted for 4 hours. She began to have excrutiating pain from T6 to her sacrum that radiates to her hips. She describes the pain as throbbing, aching, and 4/10 in severity. Pt states coughing and deep breathing bring cause sharp 8/10 pain, and movement causes 15/ 10 pain. Laying still makes the pain better, and she lays on her left side. Pt also states she feels dehydrated. PMHx lung cancer, COPD, PNA, renal failure, Crohns disease, PE, and colectomy. In 2010 she had a T6 compression fracture due to her osteoporosis, and since has been semi bed-ridden. Pt is a smoker. She denies taking chronic pain medications. - History of Current Complaint Chief Complaint: EDBackInjuryPain Stated Complaint: BACK PAIN Time Seen by Provider: 09/08/17 16:11 Hx Obtained From: Patient Onset/Duration: Gradual Onset, Lasting Days - 4, Still Present Timing: Constant Back Pain Location: Is Discrete @ - T6 - sacrum, Radiates To - Hips Severity Initially: Moderate Pain Intensity: 7 - 8/10 with coughing, 15/10 with movement Pain Scale Used: 0-10 Numeric Character: Sharp, Aching, Throbbing Aggravating Symptom(s): Movement, Cough, Other - Deep breathing Alleviating Symptom(s): Rest - Allergies/Home Medications Allergies/Adverse Reactions: Allergies Allergy/AdvReac Type Severity Reaction Status Date / Time daptomycin Allergy See Comment Verified 05/17/17 13:46 doxycycline Allergy Vomiting Verified 05/17/17 13:46 epinephrine Allergy See Comment Verified 05/17/17 13:46 infliximab [From Remicade] Allergy Swelling Verified 05/17/17 13:46 levofloxacin [From Levaquin] Allergy Rash Verified 05/17/17 13:46 tetanus toxoid, adsorbed Allergy Swelling Verified 05/17/17 13:46 vancomycin Allergy Wheezing Verified 05/17/17 13:46 eggplant Allergy Mild Difficulty Uncoded 01/22/17 23:59 Breathing PMH/Surg Hx/FS Hx/Imm Hx Endocrine/Hematology History: Reports: Hx Anticoagulant Therapy - coumadin Denies: Hx Diabetes Cardiovascular History: Reports: Hx Angina, Hx Deep Vein Thrombosis, Hx Embolism - PE, Hx Hypotension, Hx Hypertension, Hx Syncope, 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 RUL CA. GI History: Reports: Hx Crohn's Disease, Hx Ileostomy, Other GI Disorders - Ileostomy placement History: Reports: Hx Acute Renal Failure, Hx Chronic Renal Failure, Other Problems/Disorders - Renal deficit per Dr Whittaker Denies: Hx Dialysis, Hx Renal Disease Musculoskeletal History: Reports: Hx Back Problems, Hx Osteoporosis, Hx Scoliosis - lumbar disc problems; scoliosis Sensory History: Reports: Hx Cataracts, Hx Contacts or Glasses, Hx Hearing Problem Denies: Hx Hearing Aid Opthamlomology History: Reports: Hx Cataracts, Hx Contacts or Glasses Neurological History: Reports: Hx Headaches, Hx Nerve Disease - neuropathy, 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 SEVERAL BOWEL RESECTIONS AND FISTULA, [facility] Hx Anesthesia Reactions: Yes - LOW BP - Immunization History Date of Tetanus Vaccine: utd Date of Influenza Vaccine: utd Immunizations Up to Date: Yes Infectious Disease History: No Infectious Disease History: Reports: Hx of Known/Suspected MRSA Denies: Traveled Outside the [place] in Last 30 Days - Family History Known Family History: Positive: Other - Crohn's Disease - Social History Alcohol Use: None Alcohol Amount: 1 Q 2-3 MONTHS Hx Substance Use: No Substance Use Type: Reports: Marijuana Substance Use Comment - Amount & Last Used: prescribed opium Hx Tobacco Use: Yes Smoking Status (MU): Current Every Day Smoker Type: Cigarettes Amount Used/How Often: 3 cigarettes per day Length of Time of Smoking/Using Tobacco: 53 years Have You Smoked in the Last Year: Yes Review of Systems Positive: Other - Dehyrdated Positive: Cough Positive: Myalgia - Back pain All Other Systems Reviewed And Are Negative: Yes Physical Exam - Summary Physical Exam Summary: Appearance: Chronically ill appearing, mild pain distress, pain with movement, lays on left side Skin: warm, dry, reflects adequate perfusion Head/face: normal Eyes: EOMI, RUMA ENT: normal Neck: supple, non-tender Respiratory: breath sounds present, scattered wheezes Cardiovascular: RRR, pulses symmetrical, no LE edema Abdomen: non-tender, soft, ileostomy. Midline tenderness in the upper lumbar area. Some minimal muscular tenderness in paralumbar spine. Bowel Sounds: present Musculoskeletal: normal, strength/ROM intact Neuro: normal, sensory motor intact, A&Ox3 Triage Information Reviewed: Yes Vital Signs On Initial Exam: Initial Vitals Temp Pulse Resp BP Pulse Ox 97.6 F 70 20 127/71 97 09/08/17 15:41 09/08/17 15:41 09/08/17 15:41 09/08/17 15:41 09/08/17 15:41 Vital Signs Reviewed: Yes Diagnostics - Vital Signs Vital Signs Temp Pulse Resp BP Pulse Ox 09/08/17 15:41 97.6 F 70 20 127/71 97 - Laboratory Result Diagrams: 09/08/17 17:12 09/08/17 17:12 Lab Statement: Any lab studies that have been ordered have been reviewed, and results considered in the medical decision making process. Back Pain Course/Dx - Course Course Of Treatment: Patient with a history of lung cancer who presents with back pain that is atraumatic. She does have a history of being largely bedridden with her multiple issues. She has no abdominal pain or pulsatile abdominal mass. She does have an ileostomy and no blood in it. Her hemoglobin is stable and she is fairly comfortable appearing. She has no pain radiating down her legs. A CT of the lumbar area where her pain is shows no metastatic lesions or acute disc. There is no fracture in the area. She is treated symptomatically with improvement. She also has a history of renal insufficiency with elevated creatinine over baseline today. She was given IV fluids. She'll follow closely with her doctor tomorrow. She is on outpatient path program for COPD and is considering hospice care. It is suggested that she talk to her doctor about home health nurse, PT. - Diagnoses Differential Diagnosis/HQI/PQRI: Positive: Other - Lumbar fracture, metastatic lung cancer, acute disc, muscular sprain strain, AAA, acute on chronic renal failure Provider Diagnoses: Dehydration, Acute on chronic renal failure, Mass of upper lobe of right lung, Acute lumbar back pain - Critical Care Time Critical Care Time: 30-74 min - Critical care time is exclusive of separately billable procedures. Discharge - Sign-Out/Discharge Documenting (check all that apply): Sign-Out Patient Signing out patient TO: Jin Fermin - Discharge Plan Condition: Improved Disposition: HOME Prescriptions: Cyclobenzaprine (NF) [Cyclobenzaprine 5 MG (NF)] 5 mg PO TID PRN #15 tab PRN Reason: muscle pain Docusate Sodium [Colace] 100 mg PO BID #30 capsule Hydrocodone/Acetaminophen [Hydrocodone-Acetamin 5-325 mg] 1 each PO TID PRN #15 tablet MDD 3 PRN Reason: Severe Pain Patient Education Materials: Acute Low Back Pain (ED) Referrals: Suzette France MD [Primary Care Provider] - Additional Instructions: Stay well-hydrated. Call your doctor first thing in the morning to follow-up. Make sure you take Colace along with the pain medications as these can make you constipated. Return with belly pain, fever, numbness or weakness, new symptoms or other concerns as discussed. - Billing Disposition and Condition Condition: IMPROVED Disposition: Home
[2017-09-08] MEDS ORDERED: NS 0.9% 1000 ML* 1,000 ML IV ONE (16:41)
[2017-09-08] MEDS ORDERED: Morphine VIAL* 4 MG/ML VIAL (1 ml vial) IV ONE (16:42)
[2017-09-08] MEDS ORDERED: Bupivacaine 0.5%* 50 ML VIAL INJ ONE (16:42)
[2017-09-08] MEDS ORDERED: Ondansetron INJ* 2 MG/ML VIAL IV ONE (16:42)
[2017-09-08 17:23] LABS: Hematocrit 39 % (35-47); Hemoglobin 12.9 g/dl (12.0-16.0); Mean Corpuscular HGB Conc 33 g/dl (31-36); Mean Corpuscular Hemoglobin 31 pg (27-31); Mean Corpuscular Volume 95 fL (80-97); Mean Platelet Volume 7.4 um3 (7.4-10.4); Platelet Count 260 10^3/ul (150-450); Red Blood Count 4.14 10^6/ul (4.00-5.40); Red Cell Distribution Width 16 % (10.5-15); White Blood Count 11.1 10^3/ul (3.5-10.8)
[2017-09-08 17:40] LABS: INR 1.94 (0.77-1.02)
[2017-09-08 17:57] LABS: ABS Basophils 0 10^3/ul (0-0.2); ABS Neutrophils 8.3 10^3/ul (1.5-7.7); ABS Neutrophils 8.8 10^3/ul (1.5-7.7); Monocytes % 4 % (0-7)
--- NOTE | 2017-09-08 18:55 | RAD ---
INDICATION: Atraumatic back pain COMPARISON: CT abdomen pelvis May 17, 2017 TECHNIQUE: Noncontrast axial source images was performed from the thoracolumbar junction to the sacrum. Coronal and and sagittal reformatted images were generated. FINDINGS: Vertebrae: There is no fracture or acute focal bony lesion. Alignment: The lumbar vertebrae are normally aligned. Central Canal: There is minor central canal stenosis at L4-L5 secondary to mild bulging the disc with facet and ligamentous overgrowth. The nerve roots exit without direct impingement. MR imaging is a more sensitive method to evaluate the canal and foramina. Intervertebral disc spaces: The disc spaces are maintained. Soft tissues: The paravertebral soft tissues are normal. Other: There are aortic and iliac calcifications IMPRESSION: MINOR DEGENERATIVE CHANGES AT L4-L5 WITH MINOR CENTRAL CANAL STENOSIS. NO ACUTE BONY FINDINGS.
--- NOTE | 2017-09-08 19:00 | RAD ---
INDICATION: Right upper lobe lung carcinoma COMPARISON: Chest x-ray June 16, 2017 TECHNIQUE: An AP portable view obtained at 1859 hours is submitted. FINDINGS: Bones/Soft Tissues: There are no acute bony findings. There are small metallic radiodensities projected over the right upper chest consistent with previous surgery. Cardiomediastinal: The cardiomediastinal silhouette is unchanged.. Lungs: There is a right suprahilar mass abutting the mediastinum unchanged from prior imaging. There are chronic interstitial changes with hyperinflation Pleura: There are no pleural effusions. Other: None IMPRESSION: NO ACUTE CHANGES. RIGHT SUPRAHILAR MASS. HYPERINFLATION.
[2017-09-08] MEDS ORDERED: HYDROcodone/ACETAMIN 5-325 MG* 1 TAB PO ONE (19:13)
[2017-09-08] MEDS ORDERED: Cyclobenzaprine TAB* 10 MG PO ONE (19:13)
[2017-09-08 20:10] VITALS: BP 140/75
--- NOTE | 2017-09-08 20:44 | ED ---
Progress - Progress Note Progress Note: CXR: No acute changes. Right suprahilar mass. Hyperinflation. This report was reviewed by ED physician. CT lumbar spine: Minor degenerative changes at L4-L5 with minor central canal stenosis. No acute bony findings. This report was reviewed by ED physician. Course/Dx - Course Course Of Treatment: Patient with a history of lung cancer who presents with back pain that is atraumatic. She does have a history of being largely bedridden with her multiple issues. She has no abdominal pain or pulsatile abdominal mass. She does have an ileostomy and no blood in it. Her hemoglobin is stable and she is fairly comfortable appearing. She has no pain radiating down her legs. A CT of the lumbar area where her pain is shows no metastatic lesions or acute disc. There is no fracture in the area. She is treated symptomatically with improvement. She also has a history of renal insufficiency with elevated creatinine over baseline today. She was given IV fluids. She'll follow closely with her doctor tomorrow. She is on outpatient path program for COPD and is considering hospice care. It is suggested that she talk to her doctor about home health nurse, PT. - Diagnoses Provider Diagnoses: Dehydration, Acute on chronic renal failure, Mass of upper lobe of right lung, Acute lumbar back pain - Critical Care Time Critical Care Time: 30-74 min - Critical care time is exclusive of separately billable procedures. Discharge - Discharge Plan Condition: Improved Disposition: HOME Prescriptions: Cyclobenzaprine (NF) [Cyclobenzaprine 5 MG (NF)] 5 mg PO TID PRN #15 tab PRN Reason: muscle pain Docusate Sodium [Colace] 100 mg PO BID #30 capsule Hydrocodone/Acetaminophen [Hydrocodone-Acetamin 5-325 mg] 1 each PO TID PRN #15 tablet MDD 3 PRN Reason: Severe Pain Patient Education Materials: Acute Low Back Pain (ED) Referrals: Suzette France MD [Primary Care Provider] - Additional Instructions: Stay well-hydrated. Call your doctor first thing in the morning to follow-up. Make sure you take Colace along with the pain medications as these can make you constipated. Return with belly pain, fever, numbness or weakness, new symptoms or other concerns as discussed.
== END 2017-09-08 20:10 | disposition home or self-care (01) ==
LOC: ED 15:32
DX: E86.0 Dehydration (principal); N17.9 Acute kidney failure, unspecified; N18.9 Chronic kidney disease, unspecified; R91.8 Other nonspecific abnormal finding of lung field; M54.5 Low back pain; R79.89 Other specified abnormal findings of blood chemistry; J44.9 Chronic obstructive pulmonary disease, unspecified; K50.90 Crohn's disease, unspecified, without complications; F17.210 Nicotine dependence, cigarettes, uncomplicated; Z85.118 Personal history of other malignant neoplasm of bronchus and lung; Z87.01 Personal history of pneumonia (recurrent); Z86.711 Personal history of pulmonary embolism; Z90.49 Acquired absence of other specified parts of digestive tract; Z86.718 Personal history of other venous thrombosis and embolism; Z99.81 Dependence on supplemental oxygen; Z93.2 Ileostomy status; Z79.01 Long term (current) use of anticoagulants; Z88.3 Allergy status to other anti-infective agents; Z88.8 Allergy status to other drugs, medicaments and biological substances; Z88.7 Allergy status to serum and vaccine
CPT/HCPCS: 36415; 71045; 72131; 80053; 83605; 85025; 85060; 85610; 96361; 96374; 96375; 99284; A9270-GY; J2270; J2405

== ENCOUNTER 2017-12-18 18:34 | Emergency (ER) | payer MEDICARE ==
[2017-12-18 20:09] LABS: Hematocrit 41 % (35-47); Hemoglobin 13.5 g/dl (12.0-16.0); Mean Corpuscular HGB Conc 33 g/dl (31-36); Mean Corpuscular Hemoglobin 32 pg (27-31); Mean Corpuscular Volume 95 fL (80-97); Mean Platelet Volume 7.8 um3 (7.4-10.4); Platelet Count 292 10^3/ul (150-450); Red Blood Count 4.28 10^6/ul (4.00-5.40); Red Cell Distribution Width 16 % (10.5-15); White Blood Count 10.3 10^3/ul (3.5-10.8)
[2017-12-18] MEDS ORDERED: Albuterol/Ipratropium NEB.SOL* Albuterol 2.5 MG/Ipratropium 0.5 MG 3 ML INH ONE (20:13)
[2017-12-18 20:24] LABS: EGFR Non-African American 29.8 (>60)
--- NOTE | 2017-12-18 20:25 | RAD ---
EXAM: CT Abdomen and Pelvis Without Intravenous Contrast EXAM DATE/TIME: 12/18/2017 7:40 PM CLINICAL HISTORY: 72 years old, female; Pain; Abdominal pain; Localized; Right lower quadrant (rlq); Additional info: RT hip pain, rlq pain TECHNIQUE: Axial computed tomography images of the abdomen and pelvis without intravenous contrast. All CT scans at this facility use at least one of these dose optimization techniques: automated exposure control; mA and/or kV adjustment per patient size (includes targeted exams where dose is matched to clinical indication); or iterative reconstruction. Coronal and sagittal reformatted images were created and reviewed. COMPARISON: A/P WO CT ABD/PEL W/O 05/17/2017 3:39 PM FINDINGS: Lower thorax: There is bibasilar atelectatic change or scarring. ABDOMEN: Liver: Normal. No mass. Gallbladder and bile ducts: Stable postoperative changes of cholecystectomy. Pancreas: Normal. No ductal dilation. Spleen: Normal. No splenomegaly. Adrenals: Normal. No mass. Kidneys and ureters: Stable 1.8 cm left renal cyst and 1.9 cm right renal cyst. Stomach and bowel: Stable likely postoperative changes of colectomy and partial small bowel resection and stable right lower quadrant ileostomy with no signs of bowel obstruction. Appendix: The appendix is likely surgically absent. PELVIS: Bladder: Unremarkable as visualized. Reproductive: Stable 3.7 cm left ovarian cyst. ABDOMEN and PELVIS: Intraperitoneal space: Normal. No free air. No significant fluid collection. Bones/joints: Stable diffuse osteopenia and degenerative changes of the spine. Soft tissues: Unremarkable. Vasculature: There are stable atherosclerotic aortic and iliac and femoral artery calcifications. Lymph nodes: Normal. No enlarged lymph nodes. IMPRESSION: 1. Stable 3.7 cm left ovarian cyst. 2. Stable likely postoperative changes of colectomy and partial small bowel resection and stable right lower quadrant ileostomy with no signs of bowel obstruction. 3. No other acute CT pathology. To contact [employer] with a general question: Operations Center - [phone] For direct physician to physician contact: Physician Hotline - [phone] [facility] ([facility] Facility ID #[id number])
[2017-12-18] MEDS ORDERED: Ipratropium 0.5MG/2.5ML NEB* 0.5 MG/2.5 ML NEB.SOLN ONE (20:27)
[2017-12-18] MEDS ORDERED: Levalbuterol 1.25MG/0.5ML NEB ONE (20:27)
[2017-12-18] MEDS ORDERED: Levalbuterol 1.25MG/0.5ML NEB INH ONE (20:30)
[2017-12-18] MEDS ORDERED: Ipratropium 0.5MG/2.5ML NEB* 0.5 MG/2.5 ML NEB.SOLN INH ONE (20:31)
[2017-12-18 20:38] LABS: ABS Basophils 0.1 10^3/ul (0-0.2); ABS Neutrophils 7.3 10^3/ul (1.5-7.7); ABS Neutrophils 7.4 10^3/ul (1.5-7.7); Monocytes % 9 % (0-7)
[2017-12-18 20:40] LABS: Urine Appearance Clear; Urine Blood 1+ (Negative); Urine Color Yellow; Urine Ketones Negative (Negative); Urine Protein Negative (Negative); Urine Red Blood Cell 3+(>10/hpf) (Absent); Urine Specific Gravity 1.016 (1.010-1.030); Urine Urobilinogen Negative (Negative); Urine White Blood Cell 1+(6-10/hpf) (Absent)
[2017-12-18] MEDS ORDERED: Potassium Chlor TAB* 20 MEQ TAB.ER PO ONE (20:49)
--- NOTE | 2017-12-18 20:53 | ED ---
Lower Extremity - HPI Summary HPI Summary: Patient complains of right hip pain 1 week which is not improved. Patient states she turned over in bed and had sharp right hip pain that has been persistent since. Patient states progressive over the past 2 days, barely able to ambulate. Patient walks with walker at baseline. Denies trauma, fever, cough, sore throat, CP, SOB, N/V/V abdominal pain, change in urine, change in BM. Took hydrocodone at 8:30 AM this morning. Current pain rated 4/10 - History of Current Complaint Chief Complaint: EDExtremityLower Stated Complaint: RT SIDE HIP PAIN Time Seen by Provider: 12/18/17 19:13 Hx Obtained From: Patient, Family/[employer] Attorney Mechanism Of Injury: Unknown Onset of Pain: Immediate Onset/Duration: Days Severity Initially: Moderate Severity Currently: Moderate Pain Intensity: 4 Pain Scale Used: 0-10 Numeric Timing: Constant Location: Is Discrete @ Character Of Pain: Sharp, Aching Associated Signs And Symptoms: Positive: Negative Aggravating Factor(s): Standing, Ambulation, Movement, Weight Bearing Alleviating Factor(s): Rest - Allergies/Home Medications Allergies/Adverse Reactions: Allergies Allergy/AdvReac Type Severity Reaction Status Date / Time daptomycin Allergy See Comment Verified 12/18/17 18:51 doxycycline Allergy Vomiting Verified 12/18/17 18:51 epinephrine Allergy See Comment Verified 12/18/17 18:51 infliximab [From Remicade] Allergy Swelling Verified 12/18/17 18:51 levofloxacin [From Levaquin] Allergy Rash Verified 12/18/17 18:51 tetanus toxoid, adsorbed Allergy Swelling Verified 12/18/17 18:51 vancomycin Allergy Wheezing Verified 12/18/17 18:51 eggplant Allergy Mild Difficulty Uncoded 12/18/17 18:51 Breathing PMH/Surg Hx/FS Hx/Imm Hx Endocrine/Hematology History: Reports: Hx Anticoagulant Therapy - coumadin Denies: Hx Diabetes Cardiovascular History: Reports: Hx Angina, Hx Deep Vein Thrombosis, Hx Embolism - PE, Hx Hypotension, Hx Hypertension, Hx Syncope, 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 RUL CA. GI History: Reports: Hx Crohn's Disease, Hx Ileostomy, Other GI Disorders - Ileostomy placement History: Reports: Hx Acute Renal Failure, Hx Chronic Renal Failure, Other Problems/Disorders - Renal deficit per Dr Whittaker Denies: Hx Dialysis, Hx Renal Disease Musculoskeletal History: Reports: Hx Back Problems, Hx Osteoporosis, Hx Scoliosis - lumbar disc problems; scoliosis Sensory History: Reports: Hx Cataracts, Hx Contacts or Glasses, Hx Hearing Problem Denies: Hx Hearing Aid Opthamlomology History: Reports: Hx Cataracts, Hx Contacts or Glasses Neurological History: Reports: Hx Headaches, Hx Nerve Disease - neuropathy, 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 SEVERAL BOWEL RESECTIONS AND FISTULA, [facility] Hx Anesthesia Reactions: Yes - LOW BP - Immunization History Date of Tetanus Vaccine: utd Date of Influenza Vaccine: utd Immunizations Up to Date: Yes Infectious Disease History: Yes Infectious Disease History: Reports: Hx of Known/Suspected MRSA Denies: Traveled Outside the [place] in Last 30 Days - Family History Known Family History: Positive: Unknown - Parents very young., Other - Crohn's Disease - Social History Alcohol Use: None Alcohol Amount: 1 Q 2-3 MONTHS Hx Substance Use: No Substance Use Type: Reports: Marijuana Substance Use Comment - Amount & Last Used: prescribed opium Hx Tobacco Use: Yes Smoking Status (MU): Current Every Day Smoker Type: Cigarettes Amount Used/How Often: 3 cigarettes per day Length of Time of Smoking/Using Tobacco: 53 years Have You Smoked in the Last Year: Yes Review of Systems Constitutional: Negative Eyes: Negative ENT: Negative Cardiovascular: Negative Respiratory: Negative Gastrointestinal: Negative Genitourinary: Negative Positive: Arthralgia Skin: Negative Neurological: Negative Psychological: Normal All Other Systems Reviewed And Are Negative: Yes Physical Exam - Summary Physical Exam Summary: Minimal tenderness to palpation of right hip. Patient flexes and extends right hip and right knee with minimal indication of pain. MS intact distally. Mild tenderness right lower quadrant of abdomen. Physical exam otherwise unremarkable Triage Information Reviewed: Yes Vital Signs On Initial Exam: Initial Vitals Temp Pulse Resp BP Pulse Ox 98 F 84 20 123/75 97 12/18/17 18:43 12/18/17 18:43 12/18/17 18:43 12/18/17 18:43 12/18/17 18:43 Vital Signs Reviewed: Yes Appearance: Positive: Well-Appearing Skin: Positive: Warm Head/Face: Positive: Normal Head/Face Inspection Eyes: Positive: Normal Neck: Positive: Supple Respiratory/Lung Sounds: Positive: Clear to Auscultation Cardiovascular: Positive: Normal Abdomen Description: Positive: Other: Musculoskeletal: Positive: Normal Neurological: Positive: Normal Psychiatric: Positive: Normal AVPU Assessment: Alert - Lluvia Coma Scale Best Eye Response: 4 - Spontaneous Best Motor Response: 6 - Obeys Commands Best Verbal Response: 5 - Oriented Coma Scale Total: 15 Diagnostics - Vital Signs Vital Signs Temp Pulse Resp BP Pulse Ox 12/18/17 20:34 84 20 100 12/18/17 18:43 98 F 84 20 123/75 97 - Laboratory Lab Results: Lab Results 12/18/17 12/18/17 12/18/17 Range/Units 20:00 20:00 20:11 WBC 10.3 (3.5-10.8) 10^3/ul RBC 4.28 (4.00-5.40) 10^6/ul Hgb 13.5 (12.0-16.0) g/dl Hct 41 (35-47) % MCV 95 (80-97) fL MCH 32 H (27-31) pg MCHC 33 (31-36) g/dl RDW 16 H (10.5-15) % Plt Count 292 (150-450) 10^3/ul MPV 7.8 (7.4-10.4) um3 Neut % (Auto) Not Reportable Lymph % (Auto) Not Reportable Tyrrell % (Auto) Not Reportable Eos % (Auto) Not Reportable Baso % (Auto) Not Reportable Absolute Neuts (auto) 7.3 (1.5-7.7) 10^3/ul Absolute Lymphs (auto) Not Reportable Absolute Monos (auto) Not Reportable Absolute Eos (auto) Not Reportable Absolute Basos (auto) Not Reportable Absolute Nucleated RBC Not Reportable Neutrophils % 72 (38-83) % Lymphocytes % 17 L (25-47) % Monocytes % 9 H (0-7) % Eosinophils % 1 (0-6) % Basophils % 1 (0-2) % Nucleated RBC % Not Reportable Abs Neuts (Manual) 7.4 (1.5-7.7) 10^3/ul Abs Lymphs (Manual) 1.8 (1.0-4.8) 10^3/ul Abs Monocytes (Manual) 0.9 H (0-0.8) 10^3/ul Absolute Eos (Manual) 0.1 (0-0.6) 10^3/ul Abs Basophils (Manual) 0.1 (0-0.2) 10^3/ul Normal RBC Morphology Normal (Normal) Hem Pathologist Commnt Pending Sodium 137 (135-145) mmol/L Potassium 3.2 L (3.5-5.0) mmol/L Chloride 90 L (101-111) mmol/L Carbon Dioxide 36 H (22-32) mmol/L Anion Gap 11 (2-11) mmol/L BUN 35 H (6-24) mg/dL Creatinine 1.68 H (0.51-0.95) mg/dL Est GFR ( Amer) 36.0 (>60) Est GFR (Non-Af Amer) 29.8 (>60) BUN/Creatinine Ratio 20.8 H (8-20) Glucose 136 H (70-100) mg/dL Calcium 9.0 (8.6-10.3) mg/dL Total Bilirubin 0.30 (0.2-1.0) mg/dL AST 26 (13-39) U/L ALT 24 (7-52) U/L Alkaline Phosphatase 63 (34-104) U/L C-Reactive Protein 8.31 H (<8.01) mg/L Total Protein 6.7 (6.4-8.9) g/dL Albumin 3.7 (3.2-5.2) g/dL Globulin 3.0 (2-4) g/dL Albumin/Globulin Ratio 1.2 (1-3) Urine Color Yellow Urine Appearance Clear Urine pH 7.0 (5-9) Ur Specific [place] 1.016 (1.010-1.030) Urine Protein Negative (Negative) Urine Ketones Negative (Negative) Urine Blood 1+ A (Negative) Urine Nitrate Negative (Negative) Urine Bilirubin Negative (Negative) Urine Urobilinogen Negative (Negative) Ur Leukocyte Esterase 1+ A (Negative) Urine WBC (Auto) 1+(6-10/hpf) A (Absent) Urine RBC (Auto) 3+(>10/hpf) A (Absent) Ur Squamous Epith Cells Present A (Absent) Urine Bacteria Absent (Absent) Hyaline Casts Present A (Absent) Urine Glucose Negative (Negative) Urine Ascorbic Acid * A (Negative) Result Diagrams: 12/18/17 20:00 12/18/17 20:00 Lab Statement: Any lab studies that have been ordered have been reviewed, and results considered in the medical decision making process. - CT ab/pel CT Interpretation Completed By: Radiologist - Negative Lower Extremity Course/Dx - Course Course Of Treatment: Patient complains of right hip pain 1 week which is not improved. Patient states she turned over in bed and had sharp right hip pain that has been persistent since. Patient states progressive over the past 2 days , barely able to ambulate. Patient walks with walker at baseline. Denies trauma, fever, cough, sore throat, CP, SOB, N/V/V abdominal pain, change in urine, change in BM. Took hydrocodone at 8:30 AM this morning. Current pain rated 4/10. Physical exam:Minimal tenderness to palpation of right hip. Patient flexes and extends right hip and right knee with minimal indication of pain. MS intact distally. Mild tenderness right lower quadrant of abdomen. Physical exam otherwise unremarkable. Vital signs within normal limits. Labs the patient baseline. CT abdomen and pelvis without contrast unremarkable. Likely musculoskeletal strain. Follow-up with orthopedics for possible physical therapy. - Diagnoses Provider Diagnoses: Hip pain, Right sided abdominal pain, Hypokalemia Discharge - Sign-Out/Discharge Documenting (check all that apply): Patient Departure - Discharge Plan Condition: Stable Disposition: HOME Prescriptions: Cyclobenzaprine TAB* [Flexeril 10 MG TAB*] 10 mg PO TID PRN 3 Days #10 tab PRN Reason: Pain predniSONE TAB* [Deltasone 20 MG TAB*] 40 mg PO DAILY 5 Days #5 tab Tramadol HCl 50 mg PO TID 3 Days #8 tablet MDD 3 Patient Education Materials: Hypokalemia (ED), Musculoskeletal Pain (ED) Referrals: Suzette France MD [Primary Care Provider] - Sandy Harris MD [Medical Doctor] - Additional Instructions: Follow-up with primary care on Friday for potassium level checked. Follow-up with orthopedics for potential physical therapy. Return to the ED for any new or worsening symptoms - Billing Disposition and Condition Condition: STABLE Disposition: Home
[2017-12-18] MEDS ORDERED: predniSONE TAB* 20 MG PO ONE ×2 (21:02→21:04)
[2017-12-18 21:40] VITALS: BP 107/71
--- NOTE | 2017-12-21 06:39 | ED ---
Progress - Progress Note Progress Note: Patient's preliminary urine culture reveals 25-50,000 enterococcus faecalis. Patient was diagnosed with hypokalemia and muscle pain. No antibiotics were prescribed. Based on low bacterial count, would suggest reviewing the chart morein depth for possible link to early UTI once final results return as well as contacting the patient to see her symptoms are progressing. No further action at this time. Course/Dx - Course Course Of Treatment: Patient complains of right hip pain 1 week which is not improved. Patient states she turned over in bed and had sharp right hip pain that has been persistent since. Patient states progressive over the past 2 days , barely able to ambulate. Patient walks with walker at baseline. Denies trauma, fever, cough, sore throat, CP, SOB, N/V/V abdominal pain, change in urine, change in BM. Took hydrocodone at 8:30 AM this morning. Current pain rated 4/10. Physical exam:Minimal tenderness to palpation of right hip. Patient flexes and extends right hip and right knee with minimal indication of pain. MS intact distally. Mild tenderness right lower quadrant of abdomen. Physical exam otherwise unremarkable. Vital signs within normal limits. Labs the patient baseline. CT abdomen and pelvis without contrast unremarkable. Likely musculoskeletal strain. Follow-up with orthopedics for possible physical therapy. - Diagnoses Provider Diagnoses: Hip pain, Right sided abdominal pain, Hypokalemia Discharge - Sign-Out/Discharge Documenting (check all that apply): Post-Discharge Follow Up - Discharge Plan Condition: Stable Disposition: HOME Prescriptions: Cyclobenzaprine TAB* [Flexeril 10 MG TAB*] 10 mg PO TID PRN 3 Days #10 tab PRN Reason: Pain predniSONE TAB* [Deltasone 20 MG TAB*] 40 mg PO DAILY 5 Days #5 tab Tramadol HCl 50 mg PO TID 3 Days #8 tablet MDD 3 Patient Education Materials: Hypokalemia (ED), Musculoskeletal Pain (ED) Referrals: Suzette France MD [Primary Care Provider] - Sandy Harris MD [Medical Doctor] - Additional Instructions: Follow-up with primary care on Friday for potassium level checked. Follow-up with orthopedics for potential physical therapy. Return to the ED for any new or worsening symptoms - Billing Disposition and Condition Condition: STABLE Disposition: Home
--- NOTE | 2017-12-22 17:17 | ED ---
Progress - Progress Note Progress Note: Patient's preliminary urine culture reveals 25-50,000 enterococcus faecalis. Patient was diagnosed with hypokalemia and muscle pain. No antibiotics were prescribed. Based on low bacterial count, would suggest reviewing the chart morein depth for possible link to early UTI once final results return as well as contacting the patient to see her symptoms are progressing. No further action at this time. UPDATE: Discussed final results with patient who denies urinary symptoms - no fevers, chills, abdominal pain, flank pain, dysuria, urinary frequency, urinary hesitation, hematuria or vaginal irritation in general. She is not prone to UTI 's. She agrees to follow up with Dr. France regarding both her musculoskeletal issues as well as her urine findings before the end of the week (states she put a call into her today). Recommended Dr. France recheck her urine to make sure she is not developing more bacteria in this area as the week goes on. Also reviewed danger signs and symptoms of when to seek medical attention for potential UTI. Patient agrees with plan and does not want to start antibiotics at this time. Course/Dx - Course Course Of Treatment: Patient complains of right hip pain 1 week which is not improved. Patient states she turned over in bed and had sharp right hip pain that has been persistent since. Patient states progressive over the past 2 days , barely able to ambulate. Patient walks with walker at baseline. Denies trauma, fever, cough, sore throat, CP, SOB, N/V/V abdominal pain, change in urine, change in BM. Took hydrocodone at 8:30 AM this morning. Current pain rated 4/10. Physical exam:Minimal tenderness to palpation of right hip. Patient flexes and extends right hip and right knee with minimal indication of pain. MS intact distally. Mild tenderness right lower quadrant of abdomen. Physical exam otherwise unremarkable. Vital signs within normal limits. Labs the patient baseline. CT abdomen and pelvis without contrast unremarkable. Likely musculoskeletal strain. Follow-up with orthopedics for possible physical therapy. - Diagnoses Provider Diagnoses: Hip pain, Right sided abdominal pain, Hypokalemia Discharge - Sign-Out/Discharge Documenting (check all that apply): Post-Discharge Follow Up - Discharge Plan Condition: Stable Disposition: HOME Prescriptions: Cyclobenzaprine TAB* [Flexeril 10 MG TAB*] 10 mg PO TID PRN 3 Days #10 tab PRN Reason: Pain predniSONE TAB* [Deltasone 20 MG TAB*] 40 mg PO DAILY 5 Days #5 tab Tramadol HCl 50 mg PO TID 3 Days #8 tablet MDD 3 Patient Education Materials: Hypokalemia (ED), Musculoskeletal Pain (ED) Referrals: Suzette France MD [Primary Care Provider] - Sandy Harris MD [Medical Doctor] - Additional Instructions: Follow-up with primary care on Friday for potassium level checked. Follow-up with orthopedics for potential physical therapy. Return to the ED for any new or worsening symptoms - Billing Disposition and Condition Condition: STABLE Disposition: Home
== END 2017-12-18 21:48 | disposition home or self-care (01) ==
LOC: ED 18:34
DX: M25.551 Pain in right hip (principal); R10.9 Unspecified abdominal pain; E87.6 Hypokalemia; Z79.01 Long term (current) use of anticoagulants; F17.210 Nicotine dependence, cigarettes, uncomplicated
CPT/HCPCS: 36415; 74176; 80053; 81003; 81015; 85025; 85060; 86140; 87077; 87086; 87186; 99283; A9270-GY; J7512

== ENCOUNTER 2018-01-24 03:13 | Inpatient (IN) | payer MEDICARE ==
[2018-01-24] MEDS ORDERED: Ondansetron INJ* 2 MG/ML VIAL ONE (03:34)
[2018-01-24] MEDS ORDERED: Morphine VIAL* 4 MG/ML VIAL (1 ml vial) ONE (03:34)
[2018-01-24] MEDS ORDERED: Ondansetron INJ* 2 MG/ML VIAL IV ONE (03:36)
[2018-01-24] MEDS ORDERED: NS 0.9% 1000 ML* 1,000 ML IV ONE (03:36)
[2018-01-24] MEDS ORDERED: Morphine VIAL* 4 MG/ML VIAL (1 ml vial) IV ONE (03:37)
[2018-01-24 03:51] LABS: Hematocrit 41 % (35-47); Hemoglobin 13.5 g/dl (12.0-16.0); Mean Corpuscular HGB Conc 33 g/dl (31-36); Mean Corpuscular Hemoglobin 31 pg (27-31); Mean Corpuscular Volume 94 fL (80-97); Mean Platelet Volume 7.7 fL (7.4-10.4); Platelet Count 341 10^3/ul (150-450); Red Blood Count 4.32 10^6/ul (4.00-5.40); Red Cell Distribution Width 15 % (10.5-15); White Blood Count 17.5 10^3/ul (3.5-10.8)
[2018-01-24] MEDS ORDERED: HYDROmorphone INJ* 2 MG/ML CARPUJECT SYRINGE IV SLOW PU ONE ×2 (03:56→05:13)
[2018-01-24] MEDS ORDERED: HYDROmorphone INJ1* 1 MG/ML SYRINGE ONE (03:59)
[2018-01-24 04:00] LABS: Activated Partial Thrombo Time 38.9 seconds (26.0-36.3); INR 1.81 (0.77-1.02)
[2018-01-24 04:08] LABS: Albumin 3.7 g/dL (3.2-5.2); Albumin/Globulin Ratio 1.2 (1-3); BUN/Creatinine Ratio 18.2 (8-20); Calcium 9.1 mg/dL (8.6-10.3); EGFR Non-African American 20.1 (>60); Globulin 3.2 g/dL (2-4); Potassium 3.1 mmol/L (3.5-5.0); Total Bilirubin 0.4 mg/dL (0.2-1.0); Total Protein 6.9 g/dL (6.4-8.9)
[2018-01-24 04:14] LABS: ABS Basophils 0 10^3/ul (0-0.2); ABS Eosinophils 0.1 10^3/ul (0-0.6); ABS Lymphocytes 3.2 10^3/ul (1.0-4.8); ABS Monocytes 1.7 10^3/ul (0-0.8); ABS Neutrophils 12.5 10^3/ul (1.5-7.7); ABS Nucleated RBC 0 10^3/ul; Eosinophil % 0.8 %; Nucleated Red Blood Cells % 0
--- NOTE | 2018-01-24 04:26 | ED ---
Lower Extremity - HPI Summary HPI Summary: The patient is a 72 y/o F brought in by ambulance to [facility] with a chief complaint of sharp pain in the right hip starting six hours [employer]. She was using a walker when it came out from underneath her, causing her to fall; she lied in bed for six hours after falling. The pain is rated 10/10 in severity. She hit her head on a nearby space heater, but she denies LOC. She is unable to bear weight on the leg as ambulation and movement aggravate the pain. She uses O2 at home for COPD and lung cancer. She takes Coumadin. - History of Current Complaint Chief Complaint: EDHipPelvisInjury Stated Complaint: FALL, HIP PAIN Time Seen by Provider: 01/24/18 03:29 Hx Obtained From: Patient Mechanism Of Injury: Fall From A Standing Position - tripped over walker Onset of Pain: Immediate Onset/Duration: Still Present Severity Initially: Severe Severity Currently: Severe Pain Intensity: 10 Pain Scale Used: 0-10 Numeric Timing: Constant, Lasting Hours Location: Is Discrete @ - right hip Associated Signs And Symptoms: Positive: Other - NEGATIVE: LOC Aggravating Factor(s): Standing, Ambulation Alleviating Factor(s): Rest Able to Bear Weight: No - Allergies/Home Medications Allergies/Adverse Reactions: Allergies Allergy/AdvReac Type Severity Reaction Status Date / Time daptomycin Allergy See Comment Verified 01/24/18 03:55 doxycycline Allergy Vomiting Verified 01/24/18 03:55 epinephrine Allergy See Comment Verified 01/24/18 03:55 infliximab [From Remicade] Allergy Swelling Verified 01/24/18 03:55 levofloxacin [From Levaquin] Allergy Rash Verified 01/24/18 03:55 tetanus toxoid, adsorbed Allergy Swelling Verified 01/24/18 03:55 vancomycin Allergy Wheezing Verified 01/24/18 03:55 eggplant Allergy Mild Difficulty Uncoded 01/24/18 03:55 Breathing Home Medications: Home Medications predniSONE TAB* [Deltasone TAB*] 8 mg PO DAILY 01/24/18 [History Confirmed 01/24] PMH/Surg Hx/FS Hx/Imm Hx Endocrine/Hematology History: Reports: Hx Anticoagulant Therapy - coumadin Denies: Hx Diabetes Cardiovascular History: Reports: Hx Angina, Hx Deep Vein Thrombosis, Hx Embolism - PE, Hx Hypotension, Hx Hypertension, Hx Syncope, 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 RUL CA. GI History: Reports: Hx Crohn's Disease, Hx Ileostomy, Other GI Disorders - Ileostomy placement History: Reports: Hx Acute Renal Failure, Hx Chronic Renal Failure, Other Problems/Disorders - Renal deficit per Dr Whittaker Denies: Hx Dialysis, Hx Renal Disease Musculoskeletal History: Reports: Hx Back Problems, Hx Osteoporosis, Hx Scoliosis - lumbar disc problems; scoliosis Sensory History: Reports: Hx Cataracts, Hx Contacts or Glasses, Hx Hearing Problem Denies: Hx Hearing Aid Opthamlomology History: Reports: Hx Cataracts, Hx Contacts or Glasses Neurological History: Reports: Hx Headaches, Hx Nerve Disease - neuropathy, 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 SEVERAL BOWEL RESECTIONS AND FISTULA, [facility] Hx Anesthesia Reactions: Yes - LOW BP - Immunization History Date of Tetanus Vaccine: utd Date of Influenza Vaccine: utd Infectious Disease History: No Infectious Disease History: Reports: Hx of Known/Suspected MRSA Denies: Traveled Outside the [place] in Last 30 Days - Family History Known Family History: Positive: Other - Crohn's Disease - Social History Alcohol Use: None Alcohol Amount: 1 Q 2-3 MONTHS Hx Substance Use: No Substance Use Type: Reports: Marijuana Substance Use Comment - Amount & Last Used: prescribed opium Hx Tobacco Use: Yes Smoking Status (MU): Current Every Day Smoker Type: Cigarettes Amount Used/How Often: 3 cigarettes per day Length of Time of Smoking/Using Tobacco: 53 years Have You Smoked in the Last Year: Yes Review of Systems Positive: Other - pain in right hip Neurological: Other - NEGATIVE: LOC All Other Systems Reviewed And Are Negative: Yes Physical Exam - Summary Physical Exam Summary: Appearance: Well appearing, Skin: warm, dry, reflects adequate perfusion Head/face: normal Eyes: EOMI, RUMA ENT: normal Neck: supple, non-tender Respiratory: CTA, breath sounds present Cardiovascular: RRR, pulses symmetrical Abdomen: non-tender, soft, ileostomy in right abdomen Musculoskeletal: tenderness in right hip, restricted ROM in right leg, no neurovascular deficit Neuro: normal, sensory motor intact, A&Ox3 Triage Information Reviewed: Yes Vital Signs On Initial Exam: Initial Vitals Temp Pulse Resp BP Pulse Ox 97.5 F 93 18 115/79 99 01/24/18 03:18 01/24/18 03:18 01/24/18 03:18 01/24/18 03:18 01/24/18 03:18 Vital Signs Reviewed: Yes Diagnostics - Vital Signs Vital Signs Temp Pulse Resp BP Pulse Ox 01/24/18 04:02 28 01/24/18 03:40 28 01/24/18 03:18 97.5 F 93 18 115/79 99 - Laboratory Lab Results: Lab Results 01/24/18 01/24/18 01/24/18 Range/Units 03:44 03:44 03:44 WBC 17.5 H (3.5-10.8) 10^3/ul RBC 4.32 (4.00-5.40) 10^6/ul Hgb 13.5 (12.0-16.0) g/dl Hct 41 (35-47) % MCV 94 (80-97) fL MCH 31 (27-31) pg MCHC 33 (31-36) g/dl RDW 15 (10.5-15) % Plt Count 341 (150-450) 10^3/ul MPV 7.7 (7.4-10.4) fL Neut % (Auto) 71.0 % Lymph % (Auto) 18.0 % [place] % (Auto) 9.9 % Eos % (Auto) 0.8 % Baso % (Auto) 0.3 % Absolute Neuts (auto) 12.5 H (1.5-7.7) 10^3/ul Absolute Lymphs (auto) 3.2 (1.0-4.8) 10^3/ul Absolute Monos (auto) 1.7 H (0-0.8) 10^3/ul Absolute Eos (auto) 0.1 (0-0.6) 10^3/ul Absolute Basos (auto) 0 (0-0.2) 10^3/ul Absolute Nucleated RBC 0 10^3/ul Nucleated RBC % 0 INR (Anticoag Therapy) 1.81 H (0.77-1.02) APTT 38.9 H (26.0-36.3) seconds Sodium 137 (135-145) mmol/L Potassium 3.1 L (3.5-5.0) mmol/L Chloride 82 L (101-111) mmol/L Carbon Dioxide 41 H* (22-32) mmol/L Anion Gap 14 H (2-11) mmol/L BUN 43 H (6-24) mg/dL Creatinine 2.36 H (0.51-0.95) mg/dL Est GFR ( Amer) 24.3 (>60) Est GFR (Non-Af Amer) 20.1 (>60) BUN/Creatinine Ratio 18.2 (8-20) Glucose 138 H (70-100) mg/dL Lactic Acid (0.5-2.0) mmol/L Calcium 9.1 (8.6-10.3) mg/dL Total Bilirubin 0.40 (0.2-1.0) mg/dL AST 26 (13-39) U/L ALT 30 (7-52) U/L Alkaline Phosphatase 173 H (34-104) U/L Troponin I 0.04 H* (<0.04) ng/mL Total Protein 6.9 (6.4-8.9) g/dL Albumin 3.7 (3.2-5.2) g/dL Globulin 3.2 (2-4) g/dL Albumin/Globulin Ratio 1.2 (1-3) Blood Type Antibody Screen 01/24/18 01/24/18 Range/Units 03:44 03:44 WBC (3.5-10.8) 10^3/ul RBC (4.00-5.40) 10^6/ul Hgb (12.0-16.0) g/dl Hct (35-47) % MCV (80-97) fL MCH (27-31) pg MCHC (31-36) g/dl RDW (10.5-15) % Plt Count (150-450) 10^3/ul MPV (7.4-10.4) fL Neut % (Auto) % Lymph % (Auto) % [place] % (Auto) % Eos % (Auto) % Baso % (Auto) % Absolute Neuts (auto) (1.5-7.7) 10^3/ul Absolute Lymphs (auto) (1.0-4.8) 10^3/ul Absolute Monos (auto) (0-0.8) 10^3/ul Absolute Eos (auto) (0-0.6) 10^3/ul Absolute Basos (auto) (0-0.2) 10^3/ul Absolute Nucleated RBC 10^3/ul Nucleated RBC % INR (Anticoag Therapy) (0.77-1.02) APTT (26.0-36.3) seconds Sodium (135-145) mmol/L Potassium (3.5-5.0) mmol/L Chloride (101-111) mmol/L Carbon Dioxide (22-32) mmol/L Anion Gap (2-11) mmol/L BUN (6-24) mg/dL Creatinine (0.51-0.95) mg/dL Est GFR ( Amer) (>60) Est GFR (Non-Af Amer) (>60) BUN/Creatinine Ratio (8-20) Glucose (70-100) mg/dL Lactic Acid 3.7 H* (0.5-2.0) mmol/L Calcium (8.6-10.3) mg/dL Total Bilirubin (0.2-1.0) mg/dL AST (13-39) U/L ALT (7-52) U/L Alkaline Phosphatase (34-104) U/L Troponin I (<0.04) ng/mL Total Protein (6.4-8.9) g/dL Albumin (3.2-5.2) g/dL Globulin (2-4) g/dL Albumin/Globulin Ratio (1-3) Blood Type O Negative Antibody Screen Pending Result Diagrams: 01/24/18 03:44 01/24/18 03:44 Lab Statement: Any lab studies that have been ordered have been reviewed, and results considered in the medical decision making process. - Radiology Right Hip/Pelvis XR Radiology Interpretation Completed By: Radiologist Summary of Radiographic Findings: Findings are consistent with fracture of the right hip. ED physician has reviewed this report. CXR Radiology Interpretation Completed By: Radiologist Summary of Radiographic Findings: No acute findings. ED physician has reviewed this report. - EKG 03:23 Cardiac Rate: NL - 92 BPM EKG Rhythm: Sinus Rhythm Re-Evaluation - Re-Evaluation First Eval Re-Evaluation Time: 04:30 Change: Unchanged Comment: I spoke with the patient about admission to [facility]. Lower Extremity Course/Dx - Course Course Of Treatment: The patient is a 72 y/o F brought in by ambulance to [facility] with a chief complaint of sharp pain in the right hip starting six hours [employer]. She tripped over her walker, causing her to fall; she hit her head but denies LOC. Upon exam, the patient has tenderness in the right hip with restricted ROM and no neurological deficit. In the ED course, the patient was given Ns, Dilaudid, Morphine, Zofran, Flexeril, and Potassium Chloride. Bloodwork obtained. At [04:15], it was made aware that the pt's lactic acid was 3.7 and Trop was 0.04. EKG reveals NSR. CXR reveals no acute pathology. Hip/Pelvis XR reveals fractured rip hip. She is diagnosed with right hip fracture, ileostomy, and Chrohn's disease. Dr. Gross accepts the patient for admission at 04:15. Patient agrees with this plan and understands the need for admission to [facility]. - Diagnoses Differential Diagnosis/HQI/PQRI: Positive: Contusion, Fracture (Closed), Strain Provider Diagnoses: Closed right hip fracture, Ileostomy in place, Crohn's disease - Physician Notifications Discussed Care Of Patient With: Shadia Gross Time Discussed With Above Provider: 04:15 Instructed by Provider To: Other - Patient will be admitted to [facility] for further care by Dr. Gross at 04:15. I also spoke with golden Gardner, for consult with the pt's diagnosis. Admit/Transition Orders Completed By ED Provider: Yes - Critical Care Time Critical Care Time: 30-74 min Discharge - Sign-Out/Discharge Documenting (check all that apply): Patient Departure - Patient will be admitted to [facility] for further care by Dr. Gross at 04:15. - Discharge Plan Condition: Stable Disposition: ADMITTED TO [facility] Referrals: Suzette France MD [Primary Care Provider] - - Billing Disposition and Condition Condition: STABLE Disposition: Admitted to [facility] - Attestation Statements Document Initiated by Scribe: Yes Documenting Scribe: Asia Garrido Provider For Whom Elaina is Documenting (Include Credential): Dr. Juanjo Bergeron MD Scribe Attestation: I, rob Stallworthed for Dr. Juanjo Bergeron MD on 01/24/18 at 0633. Scribe Documentation Reviewed: Yes Provider Attestation: The documentation as recorded by the Asia ray accurately reflects the service I personally performed and the decisions made by me, Dr. Juanjo Bergeron MD Status of Scribe Document: Viewed
[2018-01-24] MEDS ORDERED: Potassium Chlor TAB* 20 MEQ TAB.ER PO ONE (04:41)
[2018-01-24] MEDS ORDERED: Cyclobenzaprine TAB* 10 MG PO ONE (05:14)
[2018-01-24] MEDS ORDERED: Cyclobenzaprine TAB* 10 MG ONE (05:16)
[2018-01-24] MEDS ORDERED: Al Hydrox/Mg Hydrox/Simet LIQ* 30 ML UDC PO PRN (07:15)
[2018-01-24] MEDS ORDERED: LORazepam TAB(*) 1 MG PO PRN (08:29)
[2018-01-24] MEDS ORDERED: HYDROmorphone INJ1* 1 MG/ML SYRINGE IV SLOW PU PRN (08:31)
[2018-01-24 08:46] LABS: Urine Appearance Cloudy; Urine Bilirubin Negative (Negative); Urine Blood Negative (Negative); Urine Color Yellow; Urine Glucose Negative (Negative); Urine Ketones Negative (Negative); Urine Nitrite Negative (Negative); Urine Protein Negative (Negative); Urine Specific Gravity 1.021 (1.010-1.030); Urine Urobilinogen Negative (Negative)
[2018-01-24] MEDS ORDERED: Cyanocobalamin INJ * 1,000 MCG/ML VIAL 1 ML VIAL IM SCH (09:00)
[2018-01-24] MEDS ORDERED: cefTRIAXone(*) 1 GM ADVAN/BAG ONE (09:36)
[2018-01-24] MEDS: cefTRIAXone(*) 1 GM in NS 0.9% 50 ML* 50 ML IVPB SCH (09:37)
[2018-01-24] MEDS: NS 0.9% 1000 ML* 1,000 ML IV SCH ×2 (11:29→21:14)
[2018-01-24] MEDS: KCL 20 MEQ/100 ML IVPREMIX* 20 MEQ/100 ML BAG IV SCH ×2 (11:30→15:19)
--- NOTE | 2018-01-24 11:48 | PN ---
Progress Note - Progress Note Date of Service: 01/24/18 Note: Pt seen and examined in ER and then again on floor. 72 yo F with multiple comorbidities essentially bed bound with displaced femoral neck fx. Offered both operative and nonoperative treatment. Recommended hospice for nonop treatment. Full note dictated. Pt unsure so will plan for hemiarthroplasty when optimized in case patient chooses to proceed. NPO after midnight
[2018-01-24] MEDS: Calcitriol CAP* 0.25 MCG PO SCH (12:22)
[2018-01-24] MEDS: Cinacalcet TAB* 30 MG PO SCH (12:22)
[2018-01-24] MEDS: Tiotropium CAP.INH* CAP.INH/18 MCG (USE ORDER SET !) INH SCH (12:22)
[2018-01-24] MEDS: predniSONE TAB* 1 MG PO SCH (12:23)
[2018-01-24] MEDS: predniSONE TAB* 5 MG PO SCH (12:23)
--- NOTE | 2018-01-24 14:15 | PN ---
Hospitalist Progress Note Date of Service: 01/24/18 I came back this afternoon to talk with Ricardo about her wishes and she is still too drowsy after receiving another dose of dilaudid. Requested that her RN Carlos A page me when she is more awake. I talked with Mathew again; she is leaning towards operative management but also has not been able to have a meaningful discussion with Ricardo.
[2018-01-24] MEDS ORDERED: Warfarin TAB(*) 2 MG PO SCH (17:00)
--- NOTE | 2018-01-24 17:03 | PN ---
Hospitalist Progress Note Date of Service: 01/24/18 I came back to attempt to talk with Ricardo about operative vs. nonoperative options, but again she is too sleepy. She awakes to voice, and answers simple questions, but falls back to sleep when I begin talking with her. Unfortunately we cannot proceed with a risk stratification without her participation. I am reducing her dilaudid dose and have asked Carlos A to give it to her only when she is awake for a sustained period of time and requesting pain meds. I am also getting a CT of her brain since she fell on coumadin. I have provided Mathew with Ricardo's NSQIP numbers. I explained that this is not a perfect calculator, but it helps us to stratify patients pre-opratively for their perioperative risk. Ricardo scores well above average risk for major cardiac event, pneumonia, poor wound healing, readmission, return to the OR, surgical site infection, and .
[2018-01-24] MEDS: PARoxetine HCL TAB* 10 MG PO SCH (18:00)
--- NOTE | 2018-01-24 20:23 | HP ---
ADDENDUM NOW INCLUDED ON THIS REPORT CC: Dr. Earl; Dr. France * HISTORY AND PHYSICAL: DATE OF ADMISSION: 01/24/18 TIME OF ADMISSION: 8 a.m. CHIEF COMPLAINT: Fall. HISTORY OF PRESENT ILLNESS: This is a 72-year-old lady with history of COPD, lung cancer, Crohn's disease, chronic kidney disease, and immobility, who presents to the emergency department after a mechanical fall at home last night. She was using her walker to go outside to smoke and when she was coming back into the house, her walker got caught on a lip in the doorway and she fell forward and onto her right side. Her called EMS, who came and put her back in her chair and they recommended transfer to the emergency department; however, she declined and said she felt okay. However a few hours later, she had worsening right hip pain and they elected to call EMS again around 2 a.m. When she got to the emergency department, she was found to have a right femoral neck fracture and we were asked to evaluate for admission. Pertinent to her history is given by her , Nikki, who reports that Pamela spends most of her day in bed for the past few months. A recent home visit note from Dr. France 3 days ago also described this history and comments on Pamela's lack of mobility and weakness over the past several months. Nikki says that she only gets out of bed to eat and smoke, which is approximately 4 times per day. Otherwise, she lies in bed and sleeps the rest of the time. Her course over the past few months has been complicated by worsening pain for which she has been started on hydrocodone, a pressure ulcer on her right arm which has since healed, and ongoing drowsiness. At this time, Pamela who goes by Ricardo is sleeping and most of the history is obtained from her . Her reports that her pain had been very difficult to control in the emergency department and she finally got some Dilaudid, which has given her some relief and she is resting. She does awake to voice and says she has pain in her hip, but otherwise has no complaints. After answering brief questions, she falls back to sleep. The last time Pamela walked a block was over the summer on a particularly cool day, she and Nikki took a slow walk, during which time she had no chest pain or shortness of breath; however, she got fatigued quickly as expected. Other than that, Nikki cannot give me a description of Pamela's functional capacity due to her recent immobility and even more chronically than the past 3 months, she has not been active. PAST MEDICAL HISTORY: 1. Chronic kidney disease. 2. Chronic hypoxic respiratory failure on 3 L [id number] and chronic steroids. 3. Lung cancer, status post radiation; however, she has forgone further treatment for this. 4. Crohn's disease with ileostomy. 5. History of high-output ostomy. 6. Chronic diastolic heart failure. 7. COPD. 8. Tobacco use. 9. History of DVT, on anticoagulation. HOME MEDICATIONS: This is from a list that Nikki brings in dated 12/18/17. 1. Aspirin 81 mg daily. 2. Calcitriol 0.25 mcg daily. 3. Prednisone 8 mg daily. 4. Lorazepam 0.5 mg b.i.d. p.r.n. anxiety. 5. Mucinex 600 mg p.r.n. congestion. 6. Spiriva inhaled daily. 7. Warfarin 2 mg daily. 8. Paxil 30 mg daily. 9. Sensipar 30 mg daily. 10. Opium tincture 0.6 mg 5 times a day as needed. This is the 10 mg/mL concentration. 11. Ipratropium nebulizer 3 to 4 times per day as needed. 12. B12 injections weekly. 13. CBD oil drop 1 ounce/30 mL p.r.n. pain. 14. Vitamin B complex daily. 15. Tylenol p.r.n. pain. ALLERGIES: REMICADE, TETANUS, EPINEPHRINE, VANCOMYCIN, DAPTOMYCIN, LEVOFLOXACIN , and DOXYCYCLINE. SOCIAL HISTORY: She lives at home with her , Nikki. They do have an aide who comes in overnight to help them. She is a current ongoing tobacco smoker. She does not drink alcohol or use any other illicit drugs. REVIEW OF SYSTEMS: Nikki also comments on Pamela's decreased appetite over the past few days. She has reported nausea and early satiety. She has had decreased ostomy output, which has been more liquid like than usual. She denies any fevers. She does not get chest pain. She has not been more short of breath than usual and she has not had to turn off her oxygen. Remainder of the 14-point review of systems is negative other than in the HPI. PHYSICAL EXAMINATION GENERAL: This is an elderly ill-appearing female who is in no distress. She awakes to voice and answers simple questions but falls back to sleep quickly. VITAL SIGNS: Temperature 97.5, heart rate 92, respiratory rate 14, pulse ox 92 % on 3 L, blood pressure 118/79. HEENT: Her pupils are 1-mm bilaterally. Her oral mucosa is very dry. She has an ecchymosis on her chin. NECK: No JVP or adenopathy. LUNGS: Sound congested in the upper airways on visualization and her lungs are clear anteriorly, but she is unable to roll for me to listen posteriorly. CHEST: She is in a regular rate and rhythm. I cannot hear any murmurs. ABDOMEN: She has laparotomy incision and an ostomy in the mid abdomen. EXTREMITIES: Her extremities are warm. Her pulses are 2+. She is able to move her right hip but points to the right hip where her pain is. Her pulses are 2+. She had no ulcers or rashes. NEUROLOGIC: She is drowsy but follows simple commands. Her strength is equal on both sides. Her face is symmetric. DIAGNOSTIC STUDIES/LAB DATA: Chest x-ray shows a right suprahilar mass unchanged and a small left basilar infiltrate. Hip and pelvis x-ray shows displaced right subcapital femoral neck fracture. White blood cells 17.5, hemoglobin 13.5, platelets 341. INR 1.81. Sodium 137, potassium 3.1, chloride 82, bicarb 41, BUN 43, creatinine 2.36, glucose 138, lactic acid 3.7. Troponin 0.04. EKG shows normal sinus rhythm with left axis deviation, a PVC, no Q waves, a long QTc, and no ST or T-wave changes. ASSESSMENT AND PLAN: This is a 72-year-old female, who is very ill at baseline and immobile, who presents to the emergency department after a mechanical fall and is found to have a right femoral neck fracture. 1. Right femoral neck fracture. I have discussed surgical options with Nikki at length. Unfortunately, Pamela is too sleepy to appropriately participate with conversation and I will need to come back and speak with her more about it. I explained the risks of operating and of not operating and the challenging decision that we face. Certainly Pamela has very elevated perioperative risk for all kinds of complications and Nikki has a good understanding of this. Given her immobility and that the purpose of operating would be to restore mobility, the risks of surgery may not be acceptable. I explained that not operating would make her bed bound; however, this may not be far from her baseline. Nikki's major concern is chronic pain. Dr. Earl came in and did elaborate on the difference in the pain between operating and not operating and explained that while acutely after a fracture if it is managed nonoperatively, she certainly will have pain but that it can heal a little bit on its own and pain can sometimes resolve after about 6 weeks. Certainly, at this moment, Pamela is too elevated medical risk for surgery and I think it is worthwhile to continue this conversation as Nikki and Pamela have been through hospice discussions multiple times in the past and have a good grasp of its purpose. I think hospice would be a reasonable decision for her at this time but I will come back and discuss with them both when Pamela is more awake and able to participate. 2. Acute kidney injury. Given Nikki's report of decreased appetite, nausea, and decreased ostomy output, I suspect this is prerenal in nature. I am going to hydrate her and encourage p.o. intake as able. 3. Lactic acidosis. This may be in response to the fall; however, I cannot rule out an infection. I am doing an infectious workup, hydrating her, and rechecking a lactic acid in 3 hours. 4. Leukocytosis. Can be a response to her fracture but again I would like to rule out the infection as mentioned above, which may have contributed to her fall as well. 5. Mechanical fall. This may be attributable to her overall deconditioning and weakness, but we will rule out metabolic or infectious etiology as well. 6. Elevated troponin. This was likely demand in the setting of acute illness. Her EKG does not show any ischemic changes. I will continue to trend her troponins and put her on telemetry. 7. Chronic hypoxic respiratory failure. She is on her home O2 requirement of 3 L. We will continue this. 8. Left basilar infiltrate. She may have an underlying pneumonia that was causing her increased weakness or fall and some of the lab abnormalities we are seeing. Clinically, it is difficult to tell I do not think she has even the respiratory reserve to produce an effective cough, so I think it is reasonable to treat her for a community-acquired pneumonia at this time. 9. History of deep venous thrombosis, on warfarin. Her INR is subtherapeutic at 1.81. We should put her on heparin since she is subtherapeutic and maybe going to the OR, but I will discuss this more with them as if they decide on hospice, I would avoid anticoagulation altogether. 10. Chronic diastolic heart failure. Her volume exam is extremely challenging but I think she is actually dry at this time, so I am hydrating her as mentioned above. 11. Chronic obstructive pulmonary disease. She is on daily prednisone, which also puts her at high risk of poor healing and certainly speaks to her poor respiratory reserve. 12. Long QTc. It is prudent that all QT-prolonging medications are avoided. She should not have any antiemetics. 13. Immobility. This has been ongoing and discussed above certainly puts her elevated risk for surgery and I am not sure at this point that she is a surgical candidate, but I will discuss this further with Dr. Earl. DISPOSITION: Ms. Tovar is being admitted to the medical service with an orthopedic consult. I will put her on unrestricted diet until a surgical decision is made and no DVT prophylaxis given her elevated INR. ADDENDUM: Nikki reports that Pamela wishes to be DNR/DNI and she will bring her MOLST in later today. [id number] #: [id number] #: [id number] ANI
[2018-01-24] MEDS: LORazepam TAB(*) 0.5 MG PO SCH (20:33)
[2018-01-24] MEDS: Acetaminophen TAB* 325 MG PO PRN (20:33)
--- NOTE | 2018-01-24 20:56 | CONS ---
CC: PCP CONSULTATION REPORT: DATE OF CONSULT: 01/24/18 ATTENDING PHYSICIAN: Sunitha Earl MD CHIEF COMPLAINT: Right hip pain. HISTORY OF PRESENT ILLNESS: Briefly, Pamela Tovar is a 72-year-old female, who presents with ri ght hip pain. She was using a walker when she sustained a mechanical fall. She lied in bed for 6 ho urs after falling, she had significant severe pain, 9-10/10. She hit her head on the space heater. She is unable to bear weight, has pain with movement and ambulation. She uses O2 at home for COPD an d lung cancer. She has had 2 treatments with radiation. She is currently not being treated for that for her lung cancer. She takes Coumadin. She is present with her . She is currently sleepy, a lot of history is coming from previous notes as well as her spouse. PAST MEDICAL HISTORY: Significant for Crohn's disease; history of DVT and PE; COPD, on continuous ox ygen; current tobacco abuse; history of lung cancer, status post radiation; anxiety; depression; rest less legs syndrome; T6 compression fracture; chronic kidney disease, stage 3. PAST SURGICAL HISTORY: Significant for colectomy, ileostomy in April of 2010; appendectomy; cholecys tectomy; cataracts bilaterally; several bowel resections; AV fistulas. MEDICATIONS: 1. Tylenol. 2. Maalox. 3. DuoNeb. 4. Rocaltrol. 5. Sensipar. 6. Vitamin B12. 7. Tiotropium. 8. Mucinex. 9. Dilaudid. 10. Atrovent. 11. Lorazepam. 12. Opium tincture. 13. Paroxetine. 14. KCl. 15. Prednisone. 16. Spiriva. 17. Coumadin. ALLERGIES: To EGGPLANT, VANCOMYCIN, TETANUS, LEVOFLOXACIN, REMICADE, EPINEPHRINE, DOXYCYCLINE, and D APTOMYCIN. FAMILY HISTORY: Significant for heart disease. Paternal grandmother had diabetes. SOCIAL HISTORY: She is a long-time smoker, smoked for 60 years. Denies alcohol use. Her partner, Nirmal Desir, is her healthcare proxy. She ambulates with a walker, but she is mostly bed-bound and li es in bed. REVIEW OF SYSTEMS: Significant for hip pain, COPD, shortness of breath, lung cancer. Negative for f tavares or chills. 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 She mann s hypersensitivity to heat or cold. PHYSICAL EXAM: She is ill-appearing, in no acute distress. She is quiet. She will respond if I ask her numerous questions, but overall she is mildly uncomfortable and she did receive her recent pain medication. Vitals: Temperature of 97.5, pulse of 84, respiratory rate 17, O2 is 94% on 5 L of oxyg en, blood pressure 132/71. She is lying quietly in the bed. She will respond to questions. She is a ble to flex and extend her toes. Dorsiflex and plantar flex her ankle. She is sensate to light touch grossly distally, but has some hypersensitivity. She has 2+ DP and PT pulse. Her calf is soft and nontender. The skin is otherwise intact. EOMI when she opens her eyes. Chest: She does not have l abored breathing. Abdomen is soft. She has an ileostomy that is present. Heart: Regular rate and r hythm. DIAGNOSTIC STUDIES/LAB DATA: Labs obtained today demonstrates a white count of 17.5, her hematocrit of 41, platelet count of 341. INR of 1.81. Sodium 137; potassium 3.1; chloride 82; carbon dioxide 4 1; BUN 43; creatinine 2.36; glucose 138; lactic acid 3.7, recheck later was 2.2. Troponin 0.04. Alk phos 173. UA was negative. X-rays of the hip and full length femur films demonstrate no mass identified, but she does have a dis placed femoral neck fracture of the right hip. ASSESSMENT AND PLAN: She has a complicated medical history with limited functionality. At this poin t, we talked about options with the right hip hemiarthroplasty. She is not currently medically optim ized for this. We also talked about other options. Non-operative treatment was discussed; this is s omething that they were considering, but I would recommend hospice care if that is the case as it roberto l be painful. We talked about the surgery can help with mobilization, turning in the bed, with pain, and allowing her to sit up, but there are risks associated with surgery. There are also risks assoc iated with conservative treatment including bedsores, pneumonia, risk of DVT. For now, the patient i s not sure how she would like to proceed, so we will keep her n.p.o. after midnight. If she is optim ized, we can take her as early as tomorrow for right hip hemiarthroplasty. Alternatively, if they ch oose not to proceed with surgery, we would recommend hospice care. [id number]/[facility] #: [id number]
[2018-01-24] MEDS: HYDROmorphone INJ1* 1 MG/ML SYRINGE IV SLOW PU PRN (23:35)
[2018-01-25] MEDS: Acetaminophen TAB* 325 MG PO PRN ×3 (02:23→18:43)
[2018-01-25] MEDS: Albuterol/Ipratropium NEB.SOL* Albuterol 2.5 MG/Ipratropium 0.5 MG 3 ML INH PRN ×2 (02:59→22:48)
[2018-01-25] MEDS: HYDROmorphone INJ1* 1 MG/ML SYRINGE IV SLOW PU PRN ×5 (04:33→23:07)
[2018-01-25 05:55] LABS: Hematocrit 33 % (35-47); Hemoglobin 10.9 g/dl (12.0-16.0); Mean Corpuscular HGB Conc 33 g/dl (31-36); Mean Corpuscular Hemoglobin 32 pg (27-31); Mean Corpuscular Volume 96 fL (80-97); Mean Platelet Volume 7.8 fL (7.4-10.4); Platelet Count 246 10^3/ul (150-450); Red Cell Distribution Width 16 % (10.5-15); White Blood Count 12.1 10^3/ul (3.5-10.8)
[2018-01-25 06:04] LABS: INR 2.38 (0.77-1.02)
[2018-01-25 06:11] LABS: BUN/Creatinine Ratio 16.8 (8-20); Calcium 8.1 mg/dL (8.6-10.3); EGFR Non-African American 24.1 (>60); Potassium 4.1 mmol/L (3.5-5.0)
[2018-01-25 06:34] LABS: ABS Basophils 0.1 10^3/ul (0-0.2); ABS Eosinophils 0.1 10^3/ul (0-0.6); ABS Lymphocytes 1.7 10^3/ul (1.0-4.8); ABS Monocytes 1.2 10^3/ul (0-0.8); ABS Nucleated RBC 0 10^3/ul
[2018-01-25 06:39] LABS: Lymphocytes % 9 %; Monocytes % 6 %; Neutrophil % 84 %
[2018-01-25 06:49] LABS: ABS Eosinophils 0.1 10^3/ul (0-0.6); ABS Neutrophils 10.2 10^3/ul (1.5-7.7)
[2018-01-25] MEDS: Calcitriol CAP* 0.25 MCG PO SCH ×2 (08:00→10:52)
[2018-01-25] MEDS: Cinacalcet TAB* 30 MG PO SCH ×2 (08:00→10:53)
[2018-01-25] MEDS: predniSONE TAB* 5 MG PO SCH ×2 (08:01→10:53)
[2018-01-25] MEDS: LORazepam TAB(*) 0.5 MG PO SCH ×3 (08:01→21:28)
[2018-01-25] MEDS: predniSONE TAB* 1 MG PO SCH ×2 (08:02→10:53)
[2018-01-25] MEDS: cefTRIAXone(*) 1 GM in NS 0.9% 50 ML* 50 ML IVPB SCH (08:28)
--- NOTE | 2018-01-25 08:41 | PN ---
Progress Note - Progress Note Date of Service: 01/25/18 SOAP: Subjective: Pt awake and alert today. Pain medication was decreased overnight. Pt in significant discomfort with spasms during interview. at bedside. Objective: Temp Pulse Resp BP Pulse Ox 98.3 F 85 18 136/94 92 01/25/18 04:31 01/25/18 04:31 01/25/18 05:47 01/25/18 04:31 01/25/18 04:31 NAD. shaking in bed. Alert and responsive. Conversant. RLE: skin intact. Able to dorsiflex/plantarflex ankle. flex/ext toes. SILT about 1st dws, dorsal, plantar, medial, and lateral. 2+ PT pulse. Laboratory Results - last 24 hr 01/24/18 01/24/18 01/24/18 03:44 08:39 08:55 WBC RBC Hgb Hct MCV MCH MCHC RDW Plt Count MPV Neut % (Auto) Lymph % (Auto) [place] % (Auto) Eos % (Auto) Baso % (Auto) Absolute Neuts (auto) Absolute Lymphs (auto) Absolute Monos (auto) Absolute Eos (auto) Absolute Basos (auto) Absolute Nucleated RBC Neutrophils % Lymphocytes % Monocytes % Eosinophils % Nucleated RBC % Abs Neuts (Manual) Abs Lymphs (Manual) Abs Monocytes (Manual) Absolute Eos (Manual) Normal RBC Morphology INR (Anticoag Therapy) Sodium 137 Potassium 3.1 L Chloride 82 L Carbon Dioxide 41 H* Anion Gap 14 H BUN 43 H Creatinine 2.36 H Est GFR ( Amer) 24.3 Est GFR (Non-Af Amer) 20.1 BUN/Creatinine Ratio 18.2 Glucose 138 H Lactic Acid 2.2 H* Calcium 9.1 Total Bilirubin 0.40 AST 26 ALT 30 Alkaline Phosphatase 173 H Total Creatine Kinase 55 Troponin I 0.04 H* Total Protein 6.9 Albumin 3.7 Globulin 3.2 Albumin/Globulin Ratio 1.2 Urine Color Yellow Urine Appearance Cloudy Urine pH 6.0 Ur Specific [place] 1.021 Urine Protein Negative Urine Ketones Negative Urine Blood Negative Urine Nitrate Negative Urine Bilirubin Negative Urine Urobilinogen Negative Ur Leukocyte Esterase Negative Urine Glucose Negative Urine Ascorbic Acid * A 01/24/18 01/24/18 01/25/18 11:38 15:52 05:41 WBC 12.1 H RBC 3.40 L Hgb 10.9 L Hct 33 L MCV 96 MCH 32 H MCHC 33 RDW 16 H Plt Count 246 MPV 7.8 Neut % (Auto) Not Reportable Lymph % (Auto) Not Reportable [place] % (Auto) Not Reportable Eos % (Auto) Not Reportable Baso % (Auto) Not Reportable Absolute Neuts (auto) 9.0 H Absolute Lymphs (auto) 1.7 Absolute Monos (auto) 1.2 H Absolute Eos (auto) 0.1 Absolute Basos (auto) 0.1 Absolute Nucleated RBC 0 Neutrophils % 84 Lymphocytes % 9 Monocytes % 6 Eosinophils % 1 Nucleated RBC % Not Reportable Abs Neuts (Manual) 10.2 H Abs Lymphs (Manual) 1.1 Abs Monocytes (Manual) 0.7 Absolute Eos (Manual) 0.1 Normal RBC Morphology Normal INR (Anticoag Therapy) Sodium Potassium Chloride Carbon Dioxide Anion Gap BUN Creatinine Est GFR ( Amer) Est GFR (Non-Af Amer) BUN/Creatinine Ratio Glucose Lactic Acid Calcium Total Bilirubin AST ALT Alkaline Phosphatase Total Creatine Kinase Troponin I 0.03 0.03 Total Protein Albumin Globulin Albumin/Globulin Ratio Urine Color Urine Appearance Urine pH Ur Specific [place] Urine Protein Urine Ketones Urine Blood Urine Nitrate Urine Bilirubin Urine Urobilinogen Ur Leukocyte Esterase Urine Glucose Urine Ascorbic Acid 01/25/18 01/25/18 01/25/18 05:41 05:41 05:41 WBC RBC Hgb Hct MCV MCH MCHC RDW Plt Count MPV Neut % (Auto) Lymph % (Auto) [place] % (Auto) Eos % (Auto) Baso % (Auto) Absolute Neuts (auto) Absolute Lymphs (auto) Absolute Monos (auto) Absolute Eos (auto) Absolute Basos (auto) Absolute Nucleated RBC Neutrophils % Lymphocytes % Monocytes % Eosinophils % Nucleated RBC % Abs Neuts (Manual) Abs Lymphs (Manual) Abs Monocytes (Manual) Absolute Eos (Manual) Normal RBC Morphology INR (Anticoag Therapy) 2.38 H Sodium 139 Potassium 4.1 Chloride 97 L Carbon Dioxide 33 H Anion Gap 9 BUN 34 H Creatinine 2.02 H Est GFR ( Amer) 29.1 Est GFR (Non-Af Amer) 24.1 BUN/Creatinine Ratio 16.8 Glucose 105 H Lactic Acid 0.9 Calcium 8.1 L Total Bilirubin AST ALT Alkaline Phosphatase Total Creatine Kinase Troponin I Total Protein Albumin Globulin Albumin/Globulin Ratio Urine Color Urine Appearance Urine pH Ur Specific [place] Urine Protein Urine Ketones Urine Blood Urine Nitrate Urine Bilirubin Urine Urobilinogen Ur Leukocyte Esterase Urine Glucose Urine Ascorbic Acid Assessment: 72 yo with multiple medical problems and right displaced femoral neck fracture. Plan: Pt with limited functionality at baseline and this qualifies for a lou. Discussed with patient and her about options. Reviewed risks and benefits including mortalitiy risk with surgery. Pt and her will discuss with medicine team. Not optimized today as her INR is 2.38. Would treat and check tomorrow. If pt interested tomorrow, will set up for lou with one of my partners. NPO after midnight tonight if decides to proceed with surgery.
[2018-01-25] MEDS ORDERED: Spiriva Inhaler DEVICE* 1 EACH DEVICE INH ONE (09:00)
[2018-01-25] MEDS: Ipratropium 0.5MG/2.5ML NEB* 0.5 MG/2.5 ML NEB.SOLN INH PRN ×3 (09:57→19:55)
[2018-01-25] MEDS: Tiotropium CAP.INH* CAP.INH/18 MCG (USE ORDER SET !) INH SCH (09:58)
[2018-01-25] MEDS: guaiFENesin ER TAB 600 MG PO PRN (10:53)
[2018-01-25] MEDS: NS 0.9% 1000 ML* 1,000 ML IV SCH (10:55)
[2018-01-25] MEDS: Opium Tincture* 6 MG/0.6 ML ORAL.LIQ SYRINGE PO PRN ×2 (11:10→18:44)
[2018-01-25] MEDS ORDERED: HYDROmorphone INJ* 1 MG/ML CARPUJECT SYRINGE IV SLOW PU ONE (17:19)
--- NOTE | 2018-01-25 17:21 | PN ---
Subjective Date of Service: 01/25/18 Interval History: This morning I came to see Ricardo and she would not talk with me until Mathew arrived. I just went to talk to them both, and she won't talk to me until she received pain medication. She has just received dilaudid and agrees to talk with me. She is wishing to do surgery. I have recommended against surgery given her elevated risk of , cardiac event, need for return to OR, pneumonia, surgical site infection. I have explained all of this to both Ricardo and Mathew. Still, they wish to proceed in order to reduce her pain. Mobility is not their goal. Objective Active Medications: Acetaminophen (Tylenol Tab*) 650 mg PO Q4H PRN PRN Reason: FEVER/PAIN Last Admin: 01/25/18 09:14 Dose: 650 mg Al Hydrox/Mg Hydrox/Simethicone (Maalox Plus*) 30 ml PO Q6H PRN PRN Reason: INDIGESTION Albuterol/Ipratropium (Duoneb (Albuterol 2.5 Mg/Ipratropium 0.5 Mg)) 1 neb INH [id number] AWAKE PRN PRN Reason: sob/wheexing Last Admin: 01/25/18 02:59 Dose: 1 neb Calcitriol (Rocaltrol Cap*) 0.25 mcg PO DAILY [facility] Last Admin: 01/25/18 10:52 Dose: 0.25 mcg Cinacalcet (Sensipar Tab*) 30 mg PO DAILY HANK Last Admin: 01/25/18 10:53 Dose: 30 mg Cyanocobalamin (Vitamin B12 Inj *) 1,000 mcg IM Th@0900 [facility] Guaifenesin (Mucinex*) 600 mg PO BID PRN PRN Reason: CONGESTION Last Admin: 01/25/18 10:53 Dose: 600 mg Hydromorphone HCl (Dilaudid Inj1s*) 0.5 mg IV SLOW PU Q4H PRN PRN Reason: PAIN Last Admin: 01/25/18 14:50 Dose: 0.5 mg Ceftriaxone Sodium 1 gm/ (Sodium Chloride) 50 mls @ 200 mls/hr IVPB Q24H HANK Last Admin: 01/25/18 08:28 Dose: 200 mls/hr Sodium Chloride (Ns 0.9% 1000 Ml*) 1,000 mls @ 75 mls/hr IV PER RATE [facility] Last Admin: 01/25/18 10:55 Dose: 75 mls/hr Ipratropium [place] (Atrovent 0.5 Mg Neb.[place]*) 0.5 mg INH Q6HR PRN PRN Reason: WHEEZING Last Admin: 01/25/18 14:39 Dose: 0.5 mg Lorazepam (Ativan Tab(*)) 0.5 mg PO BID [facility] Last Admin: 01/25/18 09:12 Dose: 0.5 mg Opium Tincture (Opium Tincture*) 6 mg PO QID PRN PRN Reason: LOOSE STOOL/DIARRHEA Last Admin: 01/25/18 11:10 Dose: 6 mg Paroxetine HCl (Paxil Tab*) 30 mg PO QPM [facility] Last Admin: 01/24/18 18:00 Dose: Not Given Prednisone (Deltasone Tab*) 5 mg PO QAM [facility] Last Admin: 01/25/18 10:53 Dose: 5 mg Prednisone (Deltasone Tab*) 3 mg PO QAM [facility] Last Admin: 01/25/18 10:53 Dose: 3 mg Tiotropium [place] (Spiriva Cap.Inh*) 1 cap INH DAILY [facility] Last Admin: 01/25/18 09:58 Dose: 1 cap Vital Signs - 8 hr 01/25/18 01/25/18 01/25/18 09:59 10:48 11:10 Temperature Pulse Rate 78 Respiratory 20 18 16 Rate Blood Pressure (mmHg) O2 Sat by Pulse 92 Oximetry 01/25/18 01/25/18 01/25/18 11:21 14:40 14:50 Temperature 98.0 F Pulse Rate 93 80 Respiratory 24 20 18 Rate Blood Pressure 117/42 (mmHg) O2 Sat by Pulse 93 91 Oximetry 01/25/18 01/25/18 15:28 16:38 Temperature 98.3 F Pulse Rate 85 Respiratory 16 Rate Blood Pressure 111/50 (mmHg) O2 Sat by Pulse 93 91 Oximetry Oxygen Devices in Use Now: Nasal Cannula Appearance: drowsy, alerts to voice, answers my questions Eyes: No Scleral Icterus Ears/Nose/Mouth/Throat: - - dry mucosa Neck: NL Appearance and Movements; NL JVP Respiratory: Symmetrical Chest Expansion and Respiratory Effort, - - wet cough Cardiovascular: NL Sounds; No Murmurs; No JVD, RRR Abdominal: NL Sounds; No Tenderness; No Distention, - - ostomy and hernia to right of ostomy Lymphatic: No Cervical Adenopathy Extremities: No Edema Skin: - - echymosis on chin and hands Neurological: Alert and Oriented x 3 Result Diagrams: 01/25/18 05:41 01/25/18 05:41 Additional Lab and Data: Lab Results 01/24/18 01/24/18 01/24/18 Range/Units 03:44 03:44 03:44 WBC 17.5 H (3.5-10.8) 10^3/ul RBC 4.32 (4.00-5.40) 10^6/ul Hgb 13.5 (12.0-16.0) g/dl Hct 41 (35-47) % MCV 94 (80-97) fL MCH 31 (27-31) pg MCHC 33 (31-36) g/dl RDW 15 (10.5-15) % Plt Count 341 (150-450) 10^3/ul MPV 7.7 (7.4-10.4) fL Neut % (Auto) 71.0 % Lymph % (Auto) 18.0 % Saline % (Auto) 9.9 % Eos % (Auto) 0.8 % Baso % (Auto) 0.3 % Absolute Neuts (auto) 12.5 H (1.5-7.7) 10^3/ul Absolute Lymphs (auto) 3.2 (1.0-4.8) 10^3/ul Absolute Monos (auto) 1.7 H (0-0.8) 10^3/ul Absolute Eos (auto) 0.1 (0-0.6) 10^3/ul Absolute Basos (auto) 0 (0-0.2) 10^3/ul Absolute Nucleated RBC 0 10^3/ul Nucleated RBC % 0 INR (Anticoag Therapy) 1.81 H (0.77-1.02) APTT 38.9 H (26.0-36.3) seconds Sodium 137 (135-145) mmol/L Potassium 3.1 L (3.5-5.0) mmol/L Chloride 82 L (101-111) mmol/L Carbon Dioxide 41 H* (22-32) mmol/L Anion Gap 14 H (2-11) mmol/L BUN 43 H (6-24) mg/dL Creatinine 2.36 H (0.51-0.95) mg/dL Est GFR ( Amer) 24.3 (>60) Est GFR (Non-Af Amer) 20.1 (>60) BUN/Creatinine Ratio 18.2 (8-20) Glucose 138 H (70-100) mg/dL Lactic Acid (0.5-2.0) mmol/L Calcium 9.1 (8.6-10.3) mg/dL Total Bilirubin 0.40 (0.2-1.0) mg/dL AST 26 (13-39) U/L ALT 30 (7-52) U/L Alkaline Phosphatase 173 H (34-104) U/L Troponin I 0.04 H* (<0.04) ng/mL Total Protein 6.9 (6.4-8.9) g/dL Albumin 3.7 (3.2-5.2) g/dL Globulin 3.2 (2-4) g/dL Albumin/Globulin Ratio 1.2 (1-3) Blood Type Antibody Screen 01/24/18 01/24/18 Range/Units 03:44 03:44 WBC (3.5-10.8) 10^3/ul RBC (4.00-5.40) 10^6/ul Hgb (12.0-16.0) g/dl Hct (35-47) % MCV (80-97) fL MCH (27-31) pg MCHC (31-36) g/dl RDW (10.5-15) % Plt Count (150-450) 10^3/ul MPV (7.4-10.4) fL Neut % (Auto) % Lymph % (Auto) % Saline % (Auto) % Eos % (Auto) % Baso % (Auto) % Absolute Neuts (auto) (1.5-7.7) 10^3/ul Absolute Lymphs (auto) (1.0-4.8) 10^3/ul Absolute Monos (auto) (0-0.8) 10^3/ul Absolute Eos (auto) (0-0.6) 10^3/ul Absolute Basos (auto) (0-0.2) 10^3/ul Absolute Nucleated RBC 10^3/ul Nucleated RBC % INR (Anticoag Therapy) (0.77-1.02) APTT (26.0-36.3) seconds Sodium (135-145) mmol/L Potassium (3.5-5.0) mmol/L Chloride (101-111) mmol/L Carbon Dioxide (22-32) mmol/L Anion Gap (2-11) mmol/L BUN (6-24) mg/dL Creatinine (0.51-0.95) mg/dL Est GFR ( Amer) (>60) Est GFR (Non-Af Amer) (>60) BUN/Creatinine Ratio (8-20) Glucose (70-100) mg/dL Lactic Acid 3.7 H* (0.5-2.0) mmol/L Calcium (8.6-10.3) mg/dL Total Bilirubin (0.2-1.0) mg/dL AST (13-39) U/L ALT (7-52) U/L Alkaline Phosphatase (34-104) U/L Troponin I (<0.04) ng/mL Total Protein (6.4-8.9) g/dL Albumin (3.2-5.2) g/dL Globulin (2-4) g/dL Albumin/Globulin Ratio (1-3) Blood Type O Negative Antibody Screen Pending Assess/Plan/Problems-Billing Assessment: This is a 72 year old chronically ill, immobile woman who presented to the ED after a fall and was found to have a right femoral neck fracture. - Patient Problems (1) Fracture of femoral neck, right Current Visit: Yes Status: Acute Code(s): S72.001A - FRACTURE OF UNSP PART OF NECK OF RIGHT FEMUR, INIT SNOMED Code(s): 2556222 Comment: She is very elevated risk for perioperative complications. Her RCRI is 2, placing her at 6.6% risk of MACE, and NSQIP puts her 3.6% risk of MACE, but 30.5% risk of serious complication, 13.6% change of pneumonia, 2.1 % change of surgical site infection, 21% change of readmission, and 16% chance of . These are all well above average. Based on these findings, I recommended against surgery to Ricardo and Mathew. Still, they wish to accept those risks with the hope that she may get pain relief. They understand these risks well and express good comprehension and wish to proceed. I will contact Dr. Earl about this update. Her INR is >2 today, so I am giving her vitamin k to reverse the INR. The indication for warfarin was a remote DVT (2010) so will hold off on heparin (2) Acute on chronic renal failure Current Visit: No Status: Acute Priority: High Onset Date: 01/10/14 Code (s): N17.9 - ACUTE KIDNEY FAILURE, UNSPECIFIED; N18.9 - CHRONIC KIDNEY DISEASE, UNSPECIFIED SNOMED Code(s): 358178944 Comment: Improving with IVF, continue as still not at baseline (3) Pneumonia Current Visit: Yes Status: Acute Code(s): J18.9 - PNEUMONIA, UNSPECIFIED ORGANISM SNOMED Code(s): 508741206 Comment: with sepsis present at admission, sepsis now resolved continue ceftriaxone (4) Elevated troponin Current Visit: Yes Status: Acute Code(s): R74.8 - ABNORMAL LEVELS OF OTHER SERUM ENZYMES SNOMED Code(s): 976886622 Comment: likely demand but ekg was poor baseline, will repeat tomorrow morning pre-op (5) COPD (chronic obstructive pulmonary disease) Current Visit: No Status: Chronic Priority: Medium Code(s): J44.9 - CHRONIC OBSTRUCTIVE PULMONARY DISEASE, UNSPECIFIED SNOMED Code(s): 33541964 Comment: Continue home O2 and home prednisone (6) History of DVT (deep vein thrombosis) Current Visit: No Status: Chronic Priority: High Code(s): Z86.718 - PERSONAL HISTORY OF OTHER VENOUS THROMBOSIS AND EMBOLISM SNOMED Code(s): 039512032 Comment: remote warfarin on hold for surgery (7) Chronic steroid use Current Visit: Yes Status: Acute Code(s): PHQ5274 - SNOMED Code(s): 078362909 Comment: raises risk for perioperative complications (8) Anxiety Current Visit: No Status: Acute Priority: High Code(s): F41.9 - ANXIETY DISORDER, UNSPECIFIED SNOMED Code(s): 01664611 Comment: continue ativan
[2018-01-25] MEDS ORDERED: HYDROmorphone INJ1* 1 MG/ML SYRINGE IV SLOW PU ONE (17:45)
[2018-01-25] MEDS ORDERED: Phytonadione Oral Solution* 5 MG/25 ML UDC PO ONE (18:01)
[2018-01-25] MEDS: PARoxetine HCL TAB* 10 MG PO SCH (18:45)
[2018-01-26] MEDS ORDERED: HYDROmorphone INJ1* 1 MG/ML SYRINGE IV SLOW PU ONE (00:23)
[2018-01-26] MEDS: NS 0.9% 1000 ML* 1,000 ML IV SCH ×4 (00:29→23:14)
[2018-01-26] MEDS: HYDROmorphone INJ1* 1 MG/ML SYRINGE IV SLOW PU PRN ×7 (02:53→21:34)
--- NOTE | 2018-01-26 03:58 | HP ---
HISTORY AND PHYSICAL: ADDENDUM: Nikki reports that Pamela wishes to be DNR/DNI and she will bring her MOLST in later today. [id number]/[facility] #: [id number] [facility]
[2018-01-26] MEDS: Albuterol/Ipratropium NEB.SOL* Albuterol 2.5 MG/Ipratropium 0.5 MG 3 ML INH PRN ×3 (03:59→11:15)
[2018-01-26] MEDS: Acetaminophen TAB* 325 MG PO PRN (04:13)
[2018-01-26 06:45] LABS: ABS Basophils 0.1 10^3/ul (0-0.2); ABS Eosinophils 0.3 10^3/ul (0-0.6); ABS Monocytes 1.4 10^3/ul (0-0.8); ABS Neutrophils 9.7 10^3/ul (1.5-7.7); ABS Nucleated RBC 0 10^3/ul; Eosinophil % 1.9 %; Hematocrit 34 % (35-47); Hemoglobin 10.9 g/dl (12.0-16.0); Lymphocyte % 14.5 %; Mean Corpuscular HGB Conc 33 g/dl (31-36); Mean Corpuscular Hemoglobin 32 pg (27-31); Mean Corpuscular Volume 98 fL (80-97); Mean Platelet Volume 7.8 fL (7.4-10.4); Nucleated Red Blood Cells % 0; Platelet Count 250 10^3/ul (150-450); Red Blood Count 3.45 10^6/ul (4.00-5.40); Red Cell Distribution Width 16 % (10.5-15); White Blood Count 13.4 10^3/ul (3.5-10.8)
[2018-01-26 06:52] LABS: INR 1.74 (0.77-1.02)
[2018-01-26 06:59] LABS: BUN/Creatinine Ratio 15.1 (8-20); Calcium 8.2 mg/dL (8.6-10.3); EGFR Non-African American 31.7 (>60); Potassium 4.1 mmol/L (3.5-5.0)
[2018-01-26] MEDS: Tiotropium CAP.INH* CAP.INH/18 MCG (USE ORDER SET !) INH SCH (07:23)
[2018-01-26] MEDS: Calcitriol CAP* 0.25 MCG PO SCH (07:35)
[2018-01-26] MEDS: Cinacalcet TAB* 30 MG PO SCH (07:35)
[2018-01-26] MEDS: Opium Tincture* 6 MG/0.6 ML ORAL.LIQ SYRINGE PO PRN ×2 (07:35→13:59)
[2018-01-26] MEDS: predniSONE TAB* 1 MG PO SCH (07:37)
[2018-01-26] MEDS: predniSONE TAB* 5 MG PO SCH (07:38)
[2018-01-26] MEDS: cefTRIAXone(*) 1 GM in NS 0.9% 50 ML* 50 ML IVPB SCH (07:38)
[2018-01-26] MEDS: LORazepam TAB(*) 0.5 MG PO SCH ×2 (07:38→22:56)
[2018-01-26] MEDS ORDERED: HYDROmorphone INJ1* 1 MG/ML SYRINGE IV SLOW PU PRN (09:00)
--- NOTE | 2018-01-26 13:31 | PN ---
Subjective Date of Service: 01/26/18 Interval History: Pt's tremor that had been ongoing for "several weeks " has increased today. As per pt's , its likely due to pain, which had been difficult to control this AM and Dilaudid had been increased. Pt has been less coherent due to the narcotic pain meds provided. No new complaints apart for r hip pain. Poor appetite Objective Active Medications: Acetaminophen (Tylenol Tab*) 650 mg PO Q4H PRN PRN Reason: FEVER/PAIN Last Admin: 01/26/18 04:13 Dose: 650 mg Al Hydrox/Mg Hydrox/Simethicone (Maalox Plus*) 30 ml PO Q6H PRN PRN Reason: INDIGESTION Albuterol/Ipratropium (Duoneb (Albuterol 2.5 Mg/Ipratropium 0.5 Mg)) 1 neb INH [id number] AWAKE PRN PRN Reason: sob/wheexing Last Admin: 01/26/18 11:15 Dose: 1 neb Calcitriol (Rocaltrol Cap*) 0.25 mcg PO DAILY [facility] [place] Last Admin: 01/26/18 07:35 Dose: 0.25 mcg Cinacalcet (Sensipar Tab*) 30 mg PO DAILY [facility] [place] Last Admin: 01/26/18 07:35 Dose: 30 mg Cyanocobalamin (Vitamin B12 Inj *) 1,000 mcg IM Th@0900 [facility] [place] Guaifenesin (Mucinex*) 600 mg PO BID PRN PRN Reason: CONGESTION Last Admin: 01/25/18 10:53 Dose: 600 mg Hydromorphone HCl (Dilaudid Inj1s*) 1 mg IV SLOW PU Q2H PRN PRN Reason: PAIN Last Admin: 01/26/18 11:35 Dose: 1 mg Ceftriaxone Sodium 1 gm/ (Sodium Chloride) 50 mls @ 200 mls/hr IVPB Q24H [facility] [place] Last Admin: 01/26/18 07:38 Dose: 200 mls/hr Sodium Chloride (Ns 0.9% 1000 Ml*) 1,000 mls @ 100 mls/hr IV PER RATE [facility] [place] Last Admin: 01/26/18 13:20 Dose: 100 mls/hr Ipratropium [place] (Atrovent 0.5 Mg Neb.Vesna*) 0.5 mg INH Q6HR PRN PRN Reason: WHEEZING Last Admin: 01/25/18 19:55 Dose: 0.5 mg Lorazepam (Ativan Tab(*)) 0.5 mg PO BID [facility] [place] Last Admin: 01/26/18 07:38 Dose: 0.5 mg Opium Tincture (Opium Tincture*) 6 mg PO QID PRN PRN Reason: LOOSE STOOL/DIARRHEA Last Admin: 01/26/18 07:35 Dose: 6 mg Paroxetine HCl (Paxil Tab*) 30 mg PO QPM [facility] [place] Last Admin: 01/25/18 18:45 Dose: 30 mg Prednisone (Deltasone Tab*) 5 mg PO QAM [facility] [place] Last Admin: 01/26/18 07:38 Dose: 5 mg Prednisone (Deltasone Tab*) 3 mg PO QAM [facility] [place] Last Admin: 01/26/18 07:37 Dose: 3 mg Tiotropium [place] (Spiriva Cap.Inh*) 1 cap INH DAILY [facility] [place] Last Admin: 01/26/18 07:23 Dose: 1 cap Vital Signs - 8 hr 01/26/18 01/26/18 01/26/18 06:23 06:31 07:27 Temperature Pulse Rate 95 Respiratory 19 19 17 Rate Blood Pressure (mmHg) O2 Sat by Pulse 92 Oximetry 01/26/18 01/26/18 01/26/18 07:35 07:38 08:00 Temperature Pulse Rate Respiratory 20 20 20 Rate Blood Pressure (mmHg) O2 Sat by Pulse Oximetry 01/26/18 01/26/18 01/26/18 08:05 09:29 09:55 Temperature 98.1 F Pulse Rate 102 Respiratory 22 18 18 Rate Blood Pressure 116/47 (mmHg) O2 Sat by Pulse 93 Oximetry 01/26/18 01/26/18 01/26/18 11:15 11:18 11:19 Temperature Pulse Rate 92 94 Respiratory 20 18 20 Rate Blood Pressure (mmHg) O2 Sat by Pulse 93 93 Oximetry 01/26/18 01/26/18 11:35 11:43 Temperature 98.4 F Pulse Rate 79 Respiratory 20 22 Rate Blood Pressure 111/50 (mmHg) O2 Sat by Pulse 91 Oximetry Oxygen Devices in Use Now: Nasal Cannula Appearance: 72 yo F in NAD, aAOx2 Eyes: No Scleral Icterus, PERRLA Ears/Nose/Mouth/Throat: NL Teeth, Lips, Gums, Mucous Membranes Moist Neck: NL Appearance and Movements; NL JVP, Trachea Midline Respiratory: Symmetrical Chest Expansion and Respiratory Effort, - - rhonchi at LLL Cardiovascular: NL Sounds; No Murmurs; No JVD, RRR Abdominal: NL Sounds; No Tenderness; No Distention, No Hepatosplenomegaly Lymphatic: No Cervical Adenopathy Extremities: No Clubbing, Cyanosis, - - R leg rotated and appears shortened c/w left Skin: No Nodules or Sclerosis, - - chin abrasion noted Neurological: - - diffuse intentional fine tremor noted mostly in b/l UE's Result Diagrams: 01/26/18 06:12 01/26/18 06:12 Additional Lab and Data: Lab Results 01/24/18 01/24/18 01/24/18 Range/Units 03:44 03:44 03:44 WBC 17.5 H (3.5-10.8) 10^3/ul RBC 4.32 (4.00-5.40) 10^6/ul Hgb 13.5 (12.0-16.0) g/dl Hct 41 (35-47) % MCV 94 (80-97) fL MCH 31 (27-31) pg MCHC 33 (31-36) g/dl RDW 15 (10.5-15) % Plt Count 341 (150-450) 10^3/ul MPV 7.7 (7.4-10.4) fL Neut % (Auto) 71.0 % Lymph % (Auto) 18.0 % [place] % (Auto) 9.9 % Eos % (Auto) 0.8 % Baso % (Auto) 0.3 % Absolute Neuts (auto) 12.5 H (1.5-7.7) 10^3/ul Absolute Lymphs (auto) 3.2 (1.0-4.8) 10^3/ul Absolute Monos (auto) 1.7 H (0-0.8) 10^3/ul Absolute Eos (auto) 0.1 (0-0.6) 10^3/ul Absolute Basos (auto) 0 (0-0.2) 10^3/ul Absolute Nucleated RBC 0 10^3/ul Nucleated RBC % 0 INR (Anticoag Therapy) 1.81 H (0.77-1.02) APTT 38.9 H (26.0-36.3) seconds Sodium 137 (135-145) mmol/L Potassium 3.1 L (3.5-5.0) mmol/L Chloride 82 L (101-111) mmol/L Carbon Dioxide 41 H* (22-32) mmol/L Anion Gap 14 H (2-11) mmol/L BUN 43 H (6-24) mg/dL Creatinine 2.36 H (0.51-0.95) mg/dL Est GFR ( Amer) 24.3 (>60) Est GFR (Non-Af Amer) 20.1 (>60) BUN/Creatinine Ratio 18.2 (8-20) Glucose 138 H (70-100) mg/dL Lactic Acid (0.5-2.0) mmol/L Calcium 9.1 (8.6-10.3) mg/dL Total Bilirubin 0.40 (0.2-1.0) mg/dL AST 26 (13-39) U/L ALT 30 (7-52) U/L Alkaline Phosphatase 173 H (34-104) U/L Troponin I 0.04 H* (<0.04) ng/mL Total Protein 6.9 (6.4-8.9) g/dL Albumin 3.7 (3.2-5.2) g/dL Globulin 3.2 (2-4) g/dL Albumin/Globulin Ratio 1.2 (1-3) Blood Type Antibody Screen 01/24/18 01/24/18 Range/Units 03:44 03:44 WBC (3.5-10.8) 10^3/ul RBC (4.00-5.40) 10^6/ul Hgb (12.0-16.0) g/dl Hct (35-47) % MCV (80-97) fL MCH (27-31) pg MCHC (31-36) g/dl RDW (10.5-15) % Plt Count (150-450) 10^3/ul MPV (7.4-10.4) fL Neut % (Auto) % Lymph % (Auto) % [place] % (Auto) % Eos % (Auto) % Baso % (Auto) % Absolute Neuts (auto) (1.5-7.7) 10^3/ul Absolute Lymphs (auto) (1.0-4.8) 10^3/ul Absolute Monos (auto) (0-0.8) 10^3/ul Absolute Eos (auto) (0-0.6) 10^3/ul Absolute Basos (auto) (0-0.2) 10^3/ul Absolute Nucleated RBC 10^3/ul Nucleated RBC % INR (Anticoag Therapy) (0.77-1.02) APTT (26.0-36.3) seconds Sodium (135-145) mmol/L Potassium (3.5-5.0) mmol/L Chloride (101-111) mmol/L Carbon Dioxide (22-32) mmol/L Anion Gap (2-11) mmol/L BUN (6-24) mg/dL Creatinine (0.51-0.95) mg/dL Est GFR ( Amer) (>60) Est GFR (Non-Af Amer) (>60) BUN/Creatinine Ratio (8-20) Glucose (70-100) mg/dL Lactic Acid 3.7 H* (0.5-2.0) mmol/L Calcium (8.6-10.3) mg/dL Total Bilirubin (0.2-1.0) mg/dL AST (13-39) U/L ALT (7-52) U/L Alkaline Phosphatase (34-104) U/L Troponin I (<0.04) ng/mL Total Protein (6.4-8.9) g/dL Albumin (3.2-5.2) g/dL Globulin (2-4) g/dL Albumin/Globulin Ratio (1-3) Blood Type O Negative Antibody Screen Pending Assess/Plan/Problems-Billing Assessment: This is a 72 year old chronically ill, immobile woman who presented to the ED after a fall and was found to have a right femoral neck fracture. - Patient Problems (1) Fracture of femoral neck, right Comment: She is very elevated risk for perioperative complications. Her RCRI is 2, placing her at 6.6% risk of MACE, and NSQIP puts her 3.6% risk of MACE, but 30.5% risk of serious complication, 13.6% change of pneumonia, 2.1 % change of surgical site infection, 21% change of readmission, and 16% chance of . These are all well above average. Based on these findings,it was recommended against surgery to [facility]. Still, they wish to accept those risks with the hope that she may get pain relief. They understand these risks well and express good comprehension and wish to proceed. Her INR is >1.7 today. The indication for warfarin was a remote DVT (2010) so will hold off on heparin (2) Chronic steroid use Comment: raises risk for perioperative complications due to pt's overal increased surgical risk will tx with stress dose steroids to begin on 01/27/18 (3) Elevated troponin Comment: likely demand (4) Pneumonia Comment: with sepsis present at admission, sepsis now resolved continue ceftriaxone (5) Acute on chronic renal failure Comment: Improving with IVF, continue due to poor PO intake (6) DVT prophylaxis Comment: INR 1.7 today, coumadin on hold SCD's (7) COPD (chronic obstructive pulmonary disease) Comment: Continue home O2 and home prednisone (8) History of DVT (deep vein thrombosis) Comment: remote warfarin on hold for surgery Status and Disposition: inpatient
--- NOTE | 2018-01-26 14:29 | PN ---
Progress Note - Progress Note Date of Service: 01/26/18 Note: Patient seen by Dr. Arrieta this morning and discussed nature of her hip fracture and options. She is at very high risk for surgery per Dr. Valle and Dr. Kasper. The patient and would like to pursue surgical intervention for pain management as the patient is non ambulatory. Her INR was still elevated at 1.74 this morning, therefore surgery postponed. [place] procedure to be done per Dr. Arrieta once medically optimized, possibly 01/27. Coumadin held. A/P: Displaced right femoral neck fracture in high risk non ambulator, G[place] procedure once medically optimized, NPO after MN tonight. Check INR am /4.
[2018-01-26] MEDS: PARoxetine HCL TAB* 10 MG PO SCH (19:16)
[2018-01-27] MEDS: HYDROmorphone INJ1* 1 MG/ML SYRINGE IV SLOW PU PRN ×8 (00:59→23:54)
[2018-01-27] MEDS: Albuterol/Ipratropium NEB.SOL* Albuterol 2.5 MG/Ipratropium 0.5 MG 3 ML INH PRN ×3 (03:08→20:33)
[2018-01-27 05:50] LABS: ABS Basophils 0.1 10^3/ul (0-0.2); ABS Eosinophils 0.3 10^3/ul (0-0.6); ABS Lymphocytes 1.8 10^3/ul (1.0-4.8); ABS Monocytes 1.3 10^3/ul (0-0.8); ABS Neutrophils 9.1 10^3/ul (1.5-7.7); ABS Nucleated RBC 0 10^3/ul; Eosinophil % 2.3 %; Hematocrit 32 % (35-47); Hemoglobin 10.7 g/dl (12.0-16.0); Lymphocyte % 14.3 %; Mean Corpuscular HGB Conc 33 g/dl (31-36); Mean Corpuscular Hemoglobin 32 pg (27-31); Mean Corpuscular Volume 96 fL (80-97); Mean Platelet Volume 7.7 fL (7.4-10.4); Nucleated Red Blood Cells % 0; Platelet Count 248 10^3/ul (150-450); Red Blood Count 3.36 10^6/ul (4.00-5.40); Red Cell Distribution Width 16 % (10.5-15); White Blood Count 12.6 10^3/ul (3.5-10.8)
[2018-01-27 05:54] LABS: INR 1.11 (0.77-1.02)
[2018-01-27 07:08] LABS: BUN/Creatinine Ratio 13.7 (8-20); Calcium 7.8 mg/dL (8.6-10.3); EGFR Non-African American 42.3 (>60); Magnesium 1.3 mg/dL (1.9-2.7); Potassium 3.9 mmol/L (3.5-5.0)
[2018-01-27] MEDS: Hydrocortisone INJ* 100 MG VIAL IV SCH ×3 (07:32→22:40)
[2018-01-27] MEDS: Cinacalcet TAB* 30 MG PO SCH (08:01)
[2018-01-27] MEDS: LORazepam TAB(*) 0.5 MG PO SCH ×2 (08:01→20:30)
[2018-01-27] MEDS: Calcitriol CAP* 0.25 MCG PO SCH (08:01)
[2018-01-27] MEDS: cefTRIAXone(*) 1 GM in NS 0.9% 50 ML* 50 ML IVPB SCH (08:08)
[2018-01-27] MEDS: Tiotropium CAP.INH* CAP.INH/18 MCG (USE ORDER SET !) INH SCH (08:25)
[2018-01-27] MEDS: Ipratropium 0.5MG/2.5ML NEB* 0.5 MG/2.5 ML NEB.SOLN INH PRN (08:36)
[2018-01-27] MEDS: LORazepam INJ* 2 MG/ML 1 ML VIAL IV PUSH PRN ×2 (09:03→17:31)
[2018-01-27] MEDS ORDERED: Magnesium Sulf 4 GM/100 ML IV* 4,000 MG/100 ML BAG IVPB ONE (09:11)
[2018-01-27] MEDS: Opium Tincture* 6 MG/0.6 ML ORAL.LIQ SYRINGE PO PRN (10:26)
--- NOTE | 2018-01-27 10:56 | PN ---
Subjective Date of Service: 01/27/18 Interval History: Pt appears anxious and tremulous again, but more cheerful and awake than yesterday. Lorazepam IV "helped a lot". Awaiting OR at 4PM Objective Active Medications: Acetaminophen (Tylenol Tab*) 650 mg PO Q4H PRN PRN Reason: FEVER/PAIN Last Admin: 01/26/18 04:13 Dose: 650 mg Al Hydrox/Mg Hydrox/Simethicone (Maalox Plus*) 30 ml PO Q6H PRN PRN Reason: INDIGESTION Albuterol/Ipratropium (Duoneb (Albuterol 2.5 Mg/Ipratropium 0.5 Mg)) 1 neb INH [id number] AWAKE PRN PRN Reason: sob/wheexing Last Admin: 01/27/18 03:08 Dose: 1 neb Calcitriol (Rocaltrol Cap*) 0.25 mcg PO DAILY [facility] Last Admin: 01/27/18 08:01 Dose: Not Given Cinacalcet (Sensipar Tab*) 30 mg PO DAILY [facility] Last Admin: 01/27/18 08:01 Dose: Not Given Cyanocobalamin (Vitamin B12 Inj *) 1,000 mcg IM Th@0900 [facility] Guaifenesin (Mucinex*) 600 mg PO BID PRN PRN Reason: CONGESTION Last Admin: 01/25/18 10:53 Dose: 600 mg Hydrocortisone Sodium Succinate (Solu-Cortef*) 50 mg IV Q8H [facility] Last Admin: 01/27/18 07:32 Dose: 50 mg Hydromorphone HCl (Dilaudid Inj1s*) 1 mg IV SLOW PU Q2H PRN PRN Reason: PAIN Last Admin: 01/27/18 10:21 Dose: 1 mg Ceftriaxone Sodium 1 gm/ (Sodium Chloride) 50 mls @ 200 mls/hr IVPB Q24H [facility] Last Admin: 01/27/18 08:08 Dose: 200 mls/hr Sodium Chloride (Ns 0.9% 1000 Ml*) 1,000 mls @ 100 mls/hr IV PER RATE [facility] Last Admin: 01/26/18 23:14 Dose: 100 mls/hr Magnesium Sulfate (Magnesium Sulf 4 Gm/100 Ml Iv*) 4,000 mg in 100 mls @ 33.333 mls/hr IVPB ONCE ONE Stop: 01/27/18 12:10 Last Admin: 01/27/18 10:21 Dose: 33.333 mls/hr Ipratropium [place] (Atrovent 0.5 Mg Neb.Vesna*) 0.5 mg INH Q6HR PRN PRN Reason: WHEEZING Last Admin: 01/27/18 08:36 Dose: 0.5 mg Lorazepam (Ativan Tab(*)) 0.5 mg PO BID [facility] Last Admin: 01/27/18 08:01 Dose: Not Given Lorazepam (Ativan Inj*) 0.5 mg IV PUSH Q4H PRN PRN Reason: ANXIETY Last Admin: 01/27/18 09:03 Dose: 0.5 mg Opium Tincture (Opium Tincture*) 6 mg PO QID PRN PRN Reason: LOOSE STOOL/DIARRHEA Last Admin: 01/27/18 10:26 Dose: 6 mg Paroxetine HCl (Paxil Tab*) 30 mg PO QPM [facility] Last Admin: 01/26/18 19:16 Dose: 30 mg Tiotropium [place] (Spiriva Cap.Inh*) 1 cap INH DAILY [facility] Last Admin: 01/27/18 08:25 Dose: 1 cap Vital Signs - 8 hr 01/27/18 01/27/18 01/27/18 03:01 03:10 06:09 Temperature 98.5 F Pulse Rate 90 70 Respiratory 20 16 23 Rate Blood Pressure 152/86 (mmHg) O2 Sat by Pulse 94 98 Oximetry 01/27/18 01/27/18 01/27/18 07:47 07:57 08:08 Temperature 99.0 F Pulse Rate 84 Respiratory 20 20 18 Rate Blood Pressure 118/50 (mmHg) O2 Sat by Pulse 92 Oximetry 01/27/18 01/27/18 01/27/18 08:37 09:03 10:21 Temperature Pulse Rate 75 Respiratory 20 18 18 Rate Blood Pressure (mmHg) O2 Sat by Pulse 92 Oximetry 01/27/18 10:26 Temperature Pulse Rate Respiratory 18 Rate Blood Pressure (mmHg) O2 Sat by Pulse Oximetry Oxygen Devices in Use Now: Nasal Cannula Appearance: 72 yo F in nAD, AAOx2 Eyes: No Scleral Icterus, PERRLA Ears/Nose/Mouth/Throat: NL Teeth, Lips, Gums, Mucous Membranes Moist Neck: NL Appearance and Movements; NL JVP, Trachea Midline Respiratory: Symmetrical Chest Expansion and Respiratory Effort, - - scant b/l mid lung wheezes Cardiovascular: NL Sounds; No Murmurs; No JVD, RRR Abdominal: NL Sounds; No Tenderness; No Distention, No Hepatosplenomegaly, - - colostomy in place Lymphatic: No Cervical Adenopathy Extremities: No Edema, No Clubbing, Cyanosis Skin: No Nodules or Sclerosis, - - chin abrasion noted Neurological: - - diffuse intentional tremor mostly in UE's noted-improved from yesterday, motor 5/5 b/l apart for R hip- ROM not checked due to fx and pain Result Diagrams: 01/27/18 05:33 01/27/18 05:33 Additional Lab and Data: Lab Results 01/24/18 01/24/18 01/24/18 Range/Units 03:44 03:44 03:44 WBC 17.5 H (3.5-10.8) 10^3/ul RBC 4.32 (4.00-5.40) 10^6/ul Hgb 13.5 (12.0-16.0) g/dl Hct 41 (35-47) % MCV 94 (80-97) fL MCH 31 (27-31) pg MCHC 33 (31-36) g/dl RDW 15 (10.5-15) % Plt Count 341 (150-450) 10^3/ul MPV 7.7 (7.4-10.4) fL Neut % (Auto) 71.0 % Lymph % (Auto) 18.0 % [place] % (Auto) 9.9 % Eos % (Auto) 0.8 % Baso % (Auto) 0.3 % Absolute Neuts (auto) 12.5 H (1.5-7.7) 10^3/ul Absolute Lymphs (auto) 3.2 (1.0-4.8) 10^3/ul Absolute Monos (auto) 1.7 H (0-0.8) 10^3/ul Absolute Eos (auto) 0.1 (0-0.6) 10^3/ul Absolute Basos (auto) 0 (0-0.2) 10^3/ul Absolute Nucleated RBC 0 10^3/ul Nucleated RBC % 0 INR (Anticoag Therapy) 1.81 H (0.77-1.02) APTT 38.9 H (26.0-36.3) seconds Sodium 137 (135-145) mmol/L Potassium 3.1 L (3.5-5.0) mmol/L Chloride 82 L (101-111) mmol/L Carbon Dioxide 41 H* (22-32) mmol/L Anion Gap 14 H (2-11) mmol/L BUN 43 H (6-24) mg/dL Creatinine 2.36 H (0.51-0.95) mg/dL Est GFR ( Amer) 24.3 (>60) Est GFR (Non-Af Amer) 20.1 (>60) BUN/Creatinine Ratio 18.2 (8-20) Glucose 138 H (70-100) mg/dL Lactic Acid (0.5-2.0) mmol/L Calcium 9.1 (8.6-10.3) mg/dL Total Bilirubin 0.40 (0.2-1.0) mg/dL AST 26 (13-39) U/L ALT 30 (7-52) U/L Alkaline Phosphatase 173 H (34-104) U/L Troponin I 0.04 H* (<0.04) ng/mL Total Protein 6.9 (6.4-8.9) g/dL Albumin 3.7 (3.2-5.2) g/dL Globulin 3.2 (2-4) g/dL Albumin/Globulin Ratio 1.2 (1-3) Blood Type Antibody Screen 01/24/18 01/24/18 Range/Units 03:44 03:44 WBC (3.5-10.8) 10^3/ul RBC (4.00-5.40) 10^6/ul Hgb (12.0-16.0) g/dl Hct (35-47) % MCV (80-97) fL MCH (27-31) pg MCHC (31-36) g/dl RDW (10.5-15) % Plt Count (150-450) 10^3/ul MPV (7.4-10.4) fL Neut % (Auto) % Lymph % (Auto) % [place] % (Auto) % Eos % (Auto) % Baso % (Auto) % Absolute Neuts (auto) (1.5-7.7) 10^3/ul Absolute Lymphs (auto) (1.0-4.8) 10^3/ul Absolute Monos (auto) (0-0.8) 10^3/ul Absolute Eos (auto) (0-0.6) 10^3/ul Absolute Basos (auto) (0-0.2) 10^3/ul Absolute Nucleated RBC 10^3/ul Nucleated RBC % INR (Anticoag Therapy) (0.77-1.02) APTT (26.0-36.3) seconds Sodium (135-145) mmol/L Potassium (3.5-5.0) mmol/L Chloride (101-111) mmol/L Carbon Dioxide (22-32) mmol/L Anion Gap (2-11) mmol/L BUN (6-24) mg/dL Creatinine (0.51-0.95) mg/dL Est GFR ( Amer) (>60) Est GFR (Non-Af Amer) (>60) BUN/Creatinine Ratio (8-20) Glucose (70-100) mg/dL Lactic Acid 3.7 H* (0.5-2.0) mmol/L Calcium (8.6-10.3) mg/dL Total Bilirubin (0.2-1.0) mg/dL AST (13-39) U/L ALT (7-52) U/L Alkaline Phosphatase (34-104) U/L Troponin I (<0.04) ng/mL Total Protein (6.4-8.9) g/dL Albumin (3.2-5.2) g/dL Globulin (2-4) g/dL Albumin/Globulin Ratio (1-3) Blood Type O Negative Antibody Screen Pending Assess/Plan/Problems-Billing Assessment: This is a 72 year old chronically ill, immobile woman who presented to the ED after a fall and was found to have a right femoral neck fracture. - Patient Problems (1) Fracture of femoral neck, right Comment: She is very elevated risk for perioperative complications. Her RCRI is 2, placing her at 6.6% risk of MACE, and NSQIP puts her 3.6% risk of MACE, but 30.5% risk of serious complication, 13.6% change of pneumonia, 2.1 % change of surgical site infection, 21% change of readmission, and 16% chance of . These are all well above average. Based on these findings,it was recommended against surgery to [facility]. Still, they wish to accept those risks with the hope that she may get pain relief. They understand these risks well and express good comprehension and wish to proceed. . The indication for warfarin was a remote DVT (2010) so will hold off on heparin (2) Chronic steroid use Comment: raises risk for perioperative complications due to pt's overal increased surgical risk will tx with stress dose steroids to begin on 01/27/18 (3) Elevated troponin Comment: likely demand (4) Pneumonia Comment: with sepsis present at admission, sepsis now resolved continue ceftriaxone (5) Acute on chronic renal failure Comment: Improving with IVF, continue due to poor PO intake (6) DVT prophylaxis Comment: INR 1.1 today, coumadin on hold SCD's (7) COPD (chronic obstructive pulmonary disease) Comment: Continue home O2 and home prednisone (8) History of DVT (deep vein thrombosis) Comment: remote warfarin on hold for surgery Status and Disposition: inpatient
[2018-01-27] MEDS ORDERED: Buffered Lidocaine 0.9% SYRIN* 5 ML/SYR SYRINGE INTRADERM ONE (11:35)
[2018-01-27] MEDS ORDERED: Propofol* 500 MG/50 ML BTL ONE (11:47)
[2018-01-27] MEDS ORDERED: Propofol* 10 MG/ML 20 ML BTL ONE (11:47)
[2018-01-27] MEDS ORDERED: Lidocaine 2% PF * 5 ML VIAL ONE ×2 (11:47→11:50)
[2018-01-27] MEDS ORDERED: ROPIVACAINE 5 MG/ML 30 ML BTL (0.5%) ONE (11:47)
[2018-01-27] MEDS ORDERED: SODIUM CHLORIDE 0.9% ONE (11:47)
[2018-01-27] MEDS ORDERED: fentaNYL* 50 MCG/ML 2 ML VIAL (100 MCG VIAL) ONE (11:50)
[2018-01-27] MEDS ORDERED: Bupivacaine 0.5% SDV PF* 30ML VIAL ONE (11:50)
[2018-01-27] MEDS ORDERED: EPINEPHRINE 1 MG/ML 1 ML VIAL ONE (11:52)
[2018-01-27] MEDS ORDERED: Lactated Ringers 1000 ML Bag* 1,000 ML IV SCH (12:00)
[2018-01-27] MEDS ORDERED: Albuterol/Ipratropium NEB.SOL* Albuterol 2.5 MG/Ipratropium 0.5 MG 3 ML ONE ×2 (13:24→16:29)
[2018-01-27] MEDS ORDERED: ceFAZolin 2 GM PREMIX in ORs 2 GM/50 ML BAG IVPB ONE (14:01)
[2018-01-27] MEDS ORDERED: Midazolam* 1 MG/ML 5 ML VIAL (5 MG) ONE (16:09)
[2018-01-27] MEDS ORDERED: Phytonadione Oral Solution* 5 MG/25 ML UDC PO ONE (17:18)
[2018-01-27] MEDS ORDERED: Phytonadione IV (Adult)* 10 MG/ML 1 ML AMP IV ONE (17:18)
[2018-01-27] MEDS ORDERED: HYDROmorphone INJ1* 1 MG/ML SYRINGE ONE (18:08)
[2018-01-27] MEDS: PARoxetine HCL TAB* 10 MG PO SCH (18:42)
--- NOTE | 2018-01-27 20:11 | CONSULT ---
Consult Consult: Pamela Tovar is a 72yo woman with PMH significant for end stage lung CA, post operative PE, multiple DVTs for which she was on coumadin, and COPD who was admitted on 01/23/18 after a right femur fracture and found to be septic 2/ 2 a PNA. She presented to the OR today for a right hemiarthroplasty. While waiting for the procedure she was having multiple oxygen desaturations into the mid 80s. A CXR was done at that time, which did not show worsening PNA. However, given her clinical picture and her slightly elevated INR her case was cancelled. The pt and her are quite clear about the risks of surgery and would like to proceed despite the high risks including CV events, stroke, and . They see the surgery as palliative. Ideally, to minimize risk, it would be best to proceed with a spinal anesthetic. Hospitals that utilize higher rates of spinal anesthetics for hip fracture patients are associated with increased rates of patient survival (Ashlyn et al Anesthesiology April 2017). However, her INR is slightly elevated. And given her current oxygen desaturations, I do not think that she would tolerate the sedation that should be coupled with a spinal anesthetic. It would be best to proceed once her INR is within our laboratory's normal range , <1.02. Please give vitamin K and recheck her INR in the AM. Also, given her O2 desaturations in pre-op she may benefit from another day of antibiotics for her PNA. Please encourage duonebs and incentive spirometry. Thank you very much for your care. I will reevaluate her in the AM. - Meaghan Valdez,
[2018-01-27] MEDS: Acetaminophen TAB* 325 MG PO PRN (22:39)
[2018-01-28] MEDS ORDERED: NS 0.9% 1000 ML* 1,000 ML IV SCH (03:45)
[2018-01-28] MEDS: Albuterol/Ipratropium NEB.SOL* Albuterol 2.5 MG/Ipratropium 0.5 MG 3 ML INH PRN ×2 (07:09→15:25)
[2018-01-28] MEDS: Tiotropium CAP.INH* CAP.INH/18 MCG (USE ORDER SET !) INH SCH (07:15)
[2018-01-28] MEDS: Calcitriol CAP* 0.25 MCG PO SCH (08:01)
[2018-01-28 08:18] LABS: ABS Basophils 0 10^3/ul (0-0.2); ABS Eosinophils 0 10^3/ul (0-0.6); ABS Lymphocytes 1.2 10^3/ul (1.0-4.8); ABS Monocytes 0.8 10^3/ul (0-0.8); ABS Neutrophils 10.7 10^3/ul (1.5-7.7); ABS Nucleated RBC 0 10^3/ul; Eosinophil % 0.4 %; Hematocrit 31 % (35-47); Hemoglobin 10.2 g/dl (12.0-16.0); Lymphocyte % 9.6 %; Mean Corpuscular HGB Conc 33 g/dl (31-36); Mean Corpuscular Hemoglobin 32 pg (27-31); Mean Corpuscular Volume 97 fL (80-97); Mean Platelet Volume 7.8 fL (7.4-10.4); Nucleated Red Blood Cells % 0; Platelet Count 287 10^3/ul (150-450); Red Blood Count 3.21 10^6/ul (4.00-5.40); Red Cell Distribution Width 16 % (10.5-15); White Blood Count 12.8 10^3/ul (3.5-10.8)
[2018-01-28 08:22] LABS: INR 0.94 (0.77-1.02)
[2018-01-28] MEDS: Cinacalcet TAB* 30 MG PO SCH (08:23)
[2018-01-28] MEDS: LORazepam TAB(*) 0.5 MG PO SCH ×3 (08:23→23:41)
[2018-01-28] MEDS: cefTRIAXone(*) 1 GM in NS 0.9% 50 ML* 50 ML IVPB SCH (08:28)
[2018-01-28] MEDS: Hydrocortisone INJ* 100 MG VIAL IV SCH ×2 (08:28→16:59)
[2018-01-28 08:33] LABS: BUN/Creatinine Ratio 15.9 (8-20); EGFR Non-African American 33.7 (>60); Magnesium 2.4 mg/dL (1.9-2.7); Potassium 3.7 mmol/L (3.5-5.0)
[2018-01-28] MEDS: LORazepam INJ* 2 MG/ML 1 ML VIAL IV PUSH PRN ×3 (08:41→23:55)
[2018-01-28] MEDS: HYDROmorphone INJ1* 1 MG/ML SYRINGE IV SLOW PU PRN ×6 (08:41→21:53)
[2018-01-28] MEDS: Opium Tincture* 6 MG/0.6 ML ORAL.LIQ SYRINGE PO PRN (08:42)
--- NOTE | 2018-01-28 14:48 | PN ---
Progress Note - Progress Note Date of Service: 01/28/18 SOAP: Subjective: Pt in bed. Confused. Dozing and then talking. at bedside. No acute events. INR normal. HD#5 Objective: Temp Pulse Resp BP Pulse Ox 98.1 F 83 18 97/53 94 01/28/18 11:30 01/28/18 11:30 01/28/18 13:27 01/28/18 11:30 01/28/18 11:30 NAD. Alert when woken up. Confused however. Oriented to self and . Spontaneously moves extremities. Leg warm and well perfused. Sensate. Calf soft. Laboratory Results - last 24 hr 01/28/18 01/28/18 01/28/18 07:28 07:28 07:28 WBC 12.8 H RBC 3.21 L Hgb 10.2 L Hct 31 L MCV 97 MCH 32 H MCHC 33 RDW 16 H Plt Count 287 MPV 7.8 Neut % (Auto) 83.3 Lymph % (Auto) 9.6 [place] % (Auto) 6.3 Eos % (Auto) 0.4 Baso % (Auto) 0.4 Absolute Neuts (auto) 10.7 H Absolute Lymphs (auto) 1.2 Absolute Monos (auto) 0.8 Absolute Eos (auto) 0 Absolute Basos (auto) 0 Absolute Nucleated RBC 0 Nucleated RBC % 0 INR (Anticoag Therapy) 0.94 Sodium 138 Potassium 3.7 Chloride 101 Carbon Dioxide 24 Anion Gap 13 H BUN 24 Creatinine 1.51 H Est GFR ( Amer) 40.8 Est GFR (Non-Af Amer) 33.7 BUN/Creatinine Ratio 15.9 Glucose 146 H Calcium 8.0 L Magnesium 2.4 Assessment: 72 yo F with multiple medical problems and right femoral neck fracture Plan: After discussiong with multiple orthopedic surgeons in our group as well as several anesthesiologists, and the medicine team, I saw with patient and her to discuss options. Recommended against surgical treatment due to the increased risk of mortality with surgery. understood. Patient agreed but then was confused again. We will not proceed with any surgical intervention. Recommend pain management with palliative care. Appreciate consult. Will sign off for now.
--- NOTE | 2018-01-28 16:13 | PN ---
Subjective Date of Service: 01/28/18 Interval History: After talking with Dr. Earl .Pt and her agreed with palliative approach. Pt feels a little better now. Discussed all the options with pt and and a female friend. Pt would like to go to [facility] and her stated "I can't take her home like this". they requested for pt to have Ativan HANK and to start morphine concentrate in addition to IV Dilaudid and Ativan that will be unchanged. Mcgill to stay in foe comfort. also inquired if pt's midline IV can stay at d/c which could be possible after discussion with hospice They're OK with discontinuation of Coumadin, but requests all other meds to be continued for now. Objective Active Medications: Acetaminophen (Tylenol Tab*) 650 mg PO Q4H PRN PRN Reason: FEVER/PAIN Last Admin: 01/27/18 22:39 Dose: 650 mg Al Hydrox/Mg Hydrox/Simethicone (Maalox Plus*) 30 ml PO Q6H PRN PRN Reason: INDIGESTION Albuterol/Ipratropium (Duoneb (Albuterol 2.5 Mg/Ipratropium 0.5 Mg)) 1 neb INH Q2H PRN PRN Reason: SOB/WHEEZING Last Admin: 01/28/18 15:25 Dose: 1 neb Calcitriol (Rocaltrol Cap*) 0.25 mcg PO DAILY [facility] Last Admin: 01/28/18 08:01 Dose: Not Given Cinacalcet (Sensipar Tab*) 30 mg PO DAILY [facility] Last Admin: 01/28/18 08:23 Dose: Not Given Cyanocobalamin (Vitamin B12 Inj *) 1,000 mcg IM Th@0900 [facility] Guaifenesin (Mucinex*) 600 mg PO BID PRN PRN Reason: CONGESTION Last Admin: 01/25/18 10:53 Dose: 600 mg Hydrocortisone Sodium Succinate (Solu-Cortef*) 50 mg IV Q8H [facility]ANK Last Admin: 01/28/18 08:28 Dose: 50 mg Hydromorphone HCl (Dilaudid Inj1s*) 1 mg IV SLOW PU Q2H PRN PRN Reason: PAIN Last Admin: 01/28/18 13:26 Dose: 1 mg Ceftriaxone Sodium 1 gm/ (Sodium Chloride) 50 mls @ 200 mls/hr IVPB Q24H [facility] Last Admin: 01/28/18 08:28 Dose: 200 mls/hr Ipratropium [place] (Atrovent 0.5 Mg Neb.Vesna*) 0.5 mg INH Q6HR PRN PRN Reason: WHEEZING Last Admin: 01/27/18 08:36 Dose: 0.5 mg Lorazepam (Ativan Tab(*)) 0.5 mg PO BID [facility] Last Admin: 01/28/18 08:23 Dose: Not Given Lorazepam (Ativan Inj*) 0.5 mg IV PUSH Q4H PRN PRN Reason: ANXIETY Last Admin: 01/28/18 13:27 Dose: 0.5 mg Opium Tincture (Opium Tincture*) 6 mg PO QID PRN PRN Reason: LOOSE STOOL/DIARRHEA Last Admin: 01/28/18 08:42 Dose: 6 mg Paroxetine HCl (Paxil Tab*) 30 mg PO QPM [facility] Last Admin: 01/27/18 18:42 Dose: 30 mg Tiotropium [place] (Spiriva Cap.Inh*) 1 cap INH DAILY [facility] Last Admin: 01/28/18 07:15 Dose: 1 cap Vital Signs - 8 hr 01/28/18 01/28/18 01/28/18 08:41 08:42 09:59 Temperature Pulse Rate Respiratory 18 18 16 Rate Blood Pressure (mmHg) O2 Sat by Pulse Oximetry 01/28/18 01/28/18 01/28/18 10:47 10:50 11:30 Temperature 98.1 F Pulse Rate 83 Respiratory 18 18 24 Rate Blood Pressure 97/53 (mmHg) O2 Sat by Pulse 94 Oximetry 01/28/18 01/28/18 01/28/18 13:26 13:27 15:11 Temperature Pulse Rate Respiratory 18 18 18 Rate Blood Pressure (mmHg) O2 Sat by Pulse Oximetry 01/28/18 01/28/18 15:12 15:25 Temperature Pulse Rate 86 Respiratory 18 Rate Blood Pressure (mmHg) O2 Sat by Pulse Oximetry Oxygen Devices in Use Now: Nasal Cannula Appearance: 72 yo F in nAD, AAOx3, mild lethargy noted, intermittent confusion Eyes: No Scleral Icterus, PERRLA Ears/Nose/Mouth/Throat: NL Teeth, Lips, Gums, Mucous Membranes Moist Neck: NL Appearance and Movements; NL JVP, Trachea Midline Respiratory: - - scattered rhonchi b/l mid lungs Cardiovascular: NL Sounds; No Murmurs; No JVD, RRR Abdominal: NL Sounds; No Tenderness; No Distention, No Hepatosplenomegaly Lymphatic: No Cervical Adenopathy Extremities: No Edema, No Clubbing, Cyanosis, - Skin: No Nodules or Sclerosis, - - abrasion on chin, ecchymoses on b/l forearms Neurological: NL Muscle Strength and Tone Result Diagrams: 01/28/18 07:28 01/28/18 07:28 Additional Lab and Data: Lab Results 01/24/18 01/24/18 01/24/18 Range/Units 03:44 03:44 03:44 WBC 17.5 H (3.5-10.8) 10^3/ul RBC 4.32 (4.00-5.40) 10^6/ul Hgb 13.5 (12.0-16.0) g/dl Hct 41 (35-47) % MCV 94 (80-97) fL MCH 31 (27-31) pg MCHC 33 (31-36) g/dl RDW 15 (10.5-15) % Plt Count 341 (150-450) 10^3/ul MPV 7.7 (7.4-10.4) fL Neut % (Auto) 71.0 % Lymph % (Auto) 18.0 % [place] % (Auto) 9.9 % Eos % (Auto) 0.8 % Baso % (Auto) 0.3 % Absolute Neuts (auto) 12.5 H (1.5-7.7) 10^3/ul Absolute Lymphs (auto) 3.2 (1.0-4.8) 10^3/ul Absolute Monos (auto) 1.7 H (0-0.8) 10^3/ul Absolute Eos (auto) 0.1 (0-0.6) 10^3/ul Absolute Basos (auto) 0 (0-0.2) 10^3/ul Absolute Nucleated RBC 0 10^3/ul Nucleated RBC % 0 INR (Anticoag Therapy) 1.81 H (0.77-1.02) APTT 38.9 H (26.0-36.3) seconds Sodium 137 (135-145) mmol/L Potassium 3.1 L (3.5-5.0) mmol/L Chloride 82 L (101-111) mmol/L Carbon Dioxide 41 H* (22-32) mmol/L Anion Gap 14 H (2-11) mmol/L BUN 43 H (6-24) mg/dL Creatinine 2.36 H (0.51-0.95) mg/dL Est GFR ( Amer) 24.3 (>60) Est GFR (Non-Af Amer) 20.1 (>60) BUN/Creatinine Ratio 18.2 (8-20) Glucose 138 H (70-100) mg/dL Lactic Acid (0.5-2.0) mmol/L Calcium 9.1 (8.6-10.3) mg/dL Total Bilirubin 0.40 (0.2-1.0) mg/dL AST 26 (13-39) U/L ALT 30 (7-52) U/L Alkaline Phosphatase 173 H (34-104) U/L Troponin I 0.04 H* (<0.04) ng/mL Total Protein 6.9 (6.4-8.9) g/dL Albumin 3.7 (3.2-5.2) g/dL Globulin 3.2 (2-4) g/dL Albumin/Globulin Ratio 1.2 (1-3) Blood Type Antibody Screen 01/24/18 01/24/18 Range/Units 03:44 03:44 WBC (3.5-10.8) 10^3/ul RBC (4.00-5.40) 10^6/ul Hgb (12.0-16.0) g/dl Hct (35-47) % MCV (80-97) fL MCH (27-31) pg MCHC (31-36) g/dl RDW (10.5-15) % Plt Count (150-450) 10^3/ul MPV (7.4-10.4) fL Neut % (Auto) % Lymph % (Auto) % [place] % (Auto) % Eos % (Auto) % Baso % (Auto) % Absolute Neuts (auto) (1.5-7.7) 10^3/ul Absolute Lymphs (auto) (1.0-4.8) 10^3/ul Absolute Monos (auto) (0-0.8) 10^3/ul Absolute Eos (auto) (0-0.6) 10^3/ul Absolute Basos (auto) (0-0.2) 10^3/ul Absolute Nucleated RBC 10^3/ul Nucleated RBC % INR (Anticoag Therapy) (0.77-1.02) APTT (26.0-36.3) seconds Sodium (135-145) mmol/L Potassium (3.5-5.0) mmol/L Chloride (101-111) mmol/L Carbon Dioxide (22-32) mmol/L Anion Gap (2-11) mmol/L BUN (6-24) mg/dL Creatinine (0.51-0.95) mg/dL Est GFR ( Amer) (>60) Est GFR (Non-Af Amer) (>60) BUN/Creatinine Ratio (8-20) Glucose (70-100) mg/dL Lactic Acid 3.7 H* (0.5-2.0) mmol/L Calcium (8.6-10.3) mg/dL Total Bilirubin (0.2-1.0) mg/dL AST (13-39) U/L ALT (7-52) U/L Alkaline Phosphatase (34-104) U/L Troponin I (<0.04) ng/mL Total Protein (6.4-8.9) g/dL Albumin (3.2-5.2) g/dL Globulin (2-4) g/dL Albumin/Globulin Ratio (1-3) Blood Type O Negative Antibody Screen Pending Assess/Plan/Problems-Billing Assessment: This is a 72 year old chronically ill, immobile woman who presented to the ED after a fall and was found to have a right femoral neck fracture. - Patient Problems (1) Fracture of femoral neck, right Comment: She is very elevated risk for perioperative complications. Based on these findings,it was recommended against surgery to [facility]. After d/w DR. Earl today they agreed to palliative approach. Palliative consult in place. will start morphine oral concentrate adn lorazepam PO HANK (2) Chronic steroid use Comment: Cont home prednisone (3) Elevated troponin Comment: likely demand (4) Pneumonia Comment: continue ceftriaxone (5) Acute on chronic renal failure Comment: Improving (6) DVT prophylaxis Comment: coumadin d/c'd due to comfort care (7) COPD (chronic obstructive pulmonary disease) Comment: Continue home O2 and home prednisone (8) History of DVT (deep vein thrombosis) Comment: remote warfarin d/c'd Status and Disposition: inpatient
[2018-01-28] MEDS ORDERED: Morphine ORAL CONCENTRATE* 5 MG/0.25 ML ORAL.SYRIN PO PRN (16:20)
[2018-01-28] MEDS: Opium Tincture* 6 MG/0.6 ML ORAL.LIQ SYRINGE PO SCH ×2 (16:49→22:02)
[2018-01-28] MEDS: Nystatin SUSPENSION* 100000 UNITS/ML 5 ML UDC PO SCH ×3 (17:26→23:27)
[2018-01-28] MEDS: PARoxetine HCL TAB* 10 MG PO SCH (18:07)
[2018-01-28] MEDS: guaiFENesin ER TAB 600 MG PO PRN (18:09)
[2018-01-29] MEDS: HYDROmorphone INJ1* 1 MG/ML SYRINGE IV SLOW PU PRN ×9 (00:02→21:32)
[2018-01-29] MEDS: LORazepam INJ* 2 MG/ML 1 ML VIAL IV PUSH PRN ×4 (05:16→16:41)
[2018-01-29] MEDS: LORazepam TAB(*) 0.5 MG PO SCH ×4 (05:47→21:30)
[2018-01-29] MEDS: Albuterol/Ipratropium NEB.SOL* Albuterol 2.5 MG/Ipratropium 0.5 MG 3 ML INH PRN (07:56)
[2018-01-29 08:23] VITALS: BP 101/59
[2018-01-29] MEDS: Tiotropium CAP.INH* CAP.INH/18 MCG (USE ORDER SET !) INH SCH ×2 (08:56→12:04)
[2018-01-29] MEDS ORDERED: Cyanocobalamin INJ * 1,000 MCG/ML VIAL 1 ML VIAL IM SCH (09:00)
[2018-01-29] MEDS ORDERED: predniSONE TAB* 1 MG PO SCH (09:00)
[2018-01-29] MEDS ORDERED: predniSONE TAB* 5 MG PO SCH (09:00)
[2018-01-29] MEDS: cefTRIAXone(*) 1 GM in NS 0.9% 50 ML* 50 ML IVPB SCH (09:47)
[2018-01-29] MEDS: Calcitriol CAP* 0.25 MCG PO SCH (09:56)
[2018-01-29] MEDS: Nystatin SUSPENSION* 100000 UNITS/ML 5 ML UDC PO SCH ×2 (09:56→12:44)
[2018-01-29] MEDS: Cinacalcet TAB* 30 MG PO SCH (09:56)
[2018-01-29] MEDS: Opium Tincture* 6 MG/0.6 ML ORAL.LIQ SYRINGE PO SCH ×4 (09:57→23:10)
[2018-01-29] MEDS: Ipratropium 0.5MG/2.5ML NEB* 0.5 MG/2.5 ML NEB.SOLN INH PRN (12:03)
--- NOTE | 2018-01-29 12:37 | PN ---
Subjective Date of Service: 01/29/18 Interval History: Pt was in more distress today in AM, anxious and tachypneic. now seen after a dose of Dilaudid and Ativan, sedated, nods head in response, eyes closed Objective Active Medications: Acetaminophen (Tylenol Tab*) 650 mg PO Q4H PRN PRN Reason: FEVER/PAIN Last Admin: 01/27/18 22:39 Dose: 650 mg Al Hydrox/Mg Hydrox/Simethicone (Maalox Plus*) 30 ml PO Q6H PRN PRN Reason: INDIGESTION Albuterol/Ipratropium (Duoneb (Albuterol 2.5 Mg/Ipratropium 0.5 Mg)) 1 neb INH Q2H PRN PRN Reason: SOB/WHEEZING Last Admin: 01/29/18 07:56 Dose: 1 neb Calcitriol (Rocaltrol Cap*) 0.25 mcg PO DAILY [facility] Last Admin: 01/29/18 09:56 Dose: Not Given Cinacalcet (Sensipar Tab*) 30 mg PO DAILY [facility] Last Admin: 01/29/18 09:56 Dose: Not Given Cyanocobalamin (Vitamin B12 Inj *) 1,000 mcg IM Th@0900 [facility] Last Admin: 01/29/18 09:56 Dose: Not Given Guaifenesin (Mucinex*) 600 mg PO BID PRN PRN Reason: CONGESTION Last Admin: 01/28/18 18:09 Dose: 600 mg Hydromorphone HCl (Dilaudid Inj1s*) 1 mg IV SLOW PU Q2H PRN PRN Reason: PAIN Last Admin: 01/29/18 11:55 Dose: 1 mg Ceftriaxone Sodium 1 gm/ (Sodium Chloride) 50 mls @ 200 mls/hr IVPB Q24H [facility] Last Admin: 01/29/18 09:47 Dose: 200 mls/hr Ipratropium [place] (Atrovent 0.5 Mg Neb.Vesna*) 0.5 mg INH Q6HR PRN PRN Reason: WHEEZING Last Admin: 01/29/18 12:03 Dose: 0.5 mg Lorazepam (Ativan Inj*) 0.5 mg IV PUSH Q4H PRN PRN Reason: ANXIETY Last Admin: 01/29/18 11:55 Dose: 0.5 mg Lorazepam (Ativan Tab(*)) 0.5 mg PO Q6H [facility] Last Admin: 01/29/18 10:57 Dose: Not Given Morphine Sulfate (Morphine Oral Concentrate*) 5 mg PO Q2H PRN PRN Reason: PAIN Nystatin (Nystatin Suspension*) 200,000 units PO QID [facility] Last Admin: 01/29/18 09:56 Dose: Not Given Opium Tincture (Opium Tincture*) 6 mg PO QID [facility] Last Admin: 01/29/18 09:57 Dose: Not Given Paroxetine HCl (Paxil Tab*) 30 mg PO QPM [facility] Last Admin: 01/28/18 18:07 Dose: 30 mg Prednisone (Deltasone Tab*) 5 mg PO DAILY [facility] Last Admin: 01/29/18 09:57 Dose: Not Given Prednisone (Deltasone Tab*) 3 mg PO DAILY [facility] Last Admin: 01/29/18 09:57 Dose: Not Given Tiotropium [place] (Spiriva Cap.Inh*) 1 cap INH DAILY [facility] Last Admin: 01/29/18 12:04 Dose: 1 cap Vital Signs - 8 hr 01/29/18 01/29/18 01/29/18 04:37 05:16 05:47 Pulse Rate Respiratory 18 18 18 Rate Blood Pressure (mmHg) O2 Sat by Pulse Oximetry 01/29/18 01/29/18 01/29/18 05:51 06:11 07:51 Pulse Rate 158 Respiratory 18 18 Rate Blood Pressure (mmHg) O2 Sat by Pulse 86 Oximetry 01/29/18 01/29/18 01/29/18 07:57 07:59 08:00 Pulse Rate 110 Respiratory 18 28 22 Rate Blood Pressure (mmHg) O2 Sat by Pulse 87 Oximetry 01/29/18 01/29/18 01/29/18 08:05 08:21 08:23 Pulse Rate 116 Respiratory 28 22 22 Rate Blood Pressure 101/59 (mmHg) O2 Sat by Pulse Oximetry 01/29/18 01/29/18 01/29/18 09:57 10:58 11:55 Pulse Rate Respiratory 18 14 28 Rate Blood Pressure (mmHg) O2 Sat by Pulse Oximetry 01/29/18 12:04 Pulse Rate 132 Respiratory 20 Rate Blood Pressure (mmHg) O2 Sat by Pulse 80 Oximetry Oxygen Devices in Use Now: Nasal Cannula Appearance: 72 yo F tachypneic, nonverbal, alert, eyes closed Eyes: No Scleral Icterus, PERRLA Ears/Nose/Mouth/Throat: NL Teeth, Lips, Gums, Mucous Membranes Moist, - - dry mucosa Neck: NL Appearance and Movements; NL JVP, Trachea Midline Respiratory: Symmetrical Chest Expansion and Respiratory Effort, - - diffuse rhonchi b/l, prolonged exp phase Cardiovascular: NL Sounds; No Murmurs; No JVD, RRR Abdominal: NL Sounds; No Tenderness; No Distention, No Hepatosplenomegaly, - - colostomy in place Lymphatic: No Cervical Adenopathy Extremities: No Clubbing, Cyanosis, - - trace edema in feet and hands Skin: - - abrasion on chin and ecchymoses on b/l shoulders Neurological: - - deferred due to comfort care Result Diagrams: 01/28/18 07:28 01/28/18 07:28 Additional Lab and Data: Lab Results 01/24/18 01/24/18 01/24/18 Range/Units 03:44 03:44 03:44 WBC 17.5 H (3.5-10.8) 10^3/ul RBC 4.32 (4.00-5.40) 10^6/ul Hgb 13.5 (12.0-16.0) g/dl Hct 41 (35-47) % MCV 94 (80-97) fL MCH 31 (27-31) pg MCHC 33 (31-36) g/dl RDW 15 (10.5-15) % Plt Count 341 (150-450) 10^3/ul MPV 7.7 (7.4-10.4) fL Neut % (Auto) 71.0 % Lymph % (Auto) 18.0 % [place] % (Auto) 9.9 % Eos % (Auto) 0.8 % Baso % (Auto) 0.3 % Absolute Neuts (auto) 12.5 H (1.5-7.7) 10^3/ul Absolute Lymphs (auto) 3.2 (1.0-4.8) 10^3/ul Absolute Monos (auto) 1.7 H (0-0.8) 10^3/ul Absolute Eos (auto) 0.1 (0-0.6) 10^3/ul Absolute Basos (auto) 0 (0-0.2) 10^3/ul Absolute Nucleated RBC 0 10^3/ul Nucleated RBC % 0 INR (Anticoag Therapy) 1.81 H (0.77-1.02) APTT 38.9 H (26.0-36.3) seconds Sodium 137 (135-145) mmol/L Potassium 3.1 L (3.5-5.0) mmol/L Chloride 82 L (101-111) mmol/L Carbon Dioxide 41 H* (22-32) mmol/L Anion Gap 14 H (2-11) mmol/L BUN 43 H (6-24) mg/dL Creatinine 2.36 H (0.51-0.95) mg/dL Est GFR ( Amer) 24.3 (>60) Est GFR (Non-Af Amer) 20.1 (>60) BUN/Creatinine Ratio 18.2 (8-20) Glucose 138 H (70-100) mg/dL Lactic Acid (0.5-2.0) mmol/L Calcium 9.1 (8.6-10.3) mg/dL Total Bilirubin 0.40 (0.2-1.0) mg/dL AST 26 (13-39) U/L ALT 30 (7-52) U/L Alkaline Phosphatase 173 H (34-104) U/L Troponin I 0.04 H* (<0.04) ng/mL Total Protein 6.9 (6.4-8.9) g/dL Albumin 3.7 (3.2-5.2) g/dL Globulin 3.2 (2-4) g/dL Albumin/Globulin Ratio 1.2 (1-3) Blood Type Antibody Screen 01/24/18 01/24/18 Range/Units 03:44 03:44 WBC (3.5-10.8) 10^3/ul RBC (4.00-5.40) 10^6/ul Hgb (12.0-16.0) g/dl Hct (35-47) % MCV (80-97) fL MCH (27-31) pg MCHC (31-36) g/dl RDW (10.5-15) % Plt Count (150-450) 10^3/ul MPV (7.4-10.4) fL Neut % (Auto) % Lymph % (Auto) % [place] % (Auto) % Eos % (Auto) % Baso % (Auto) % Absolute Neuts (auto) (1.5-7.7) 10^3/ul Absolute Lymphs (auto) (1.0-4.8) 10^3/ul Absolute Monos (auto) (0-0.8) 10^3/ul Absolute Eos (auto) (0-0.6) 10^3/ul Absolute Basos (auto) (0-0.2) 10^3/ul Absolute Nucleated RBC 10^3/ul Nucleated RBC % INR (Anticoag Therapy) (0.77-1.02) APTT (26.0-36.3) seconds Sodium (135-145) mmol/L Potassium (3.5-5.0) mmol/L Chloride (101-111) mmol/L Carbon Dioxide (22-32) mmol/L Anion Gap (2-11) mmol/L BUN (6-24) mg/dL Creatinine (0.51-0.95) mg/dL Est GFR ( Amer) (>60) Est GFR (Non-Af Amer) (>60) BUN/Creatinine Ratio (8-20) Glucose (70-100) mg/dL Lactic Acid 3.7 H* (0.5-2.0) mmol/L Calcium (8.6-10.3) mg/dL Total Bilirubin (0.2-1.0) mg/dL AST (13-39) U/L ALT (7-52) U/L Alkaline Phosphatase (34-104) U/L Troponin I (<0.04) ng/mL Total Protein (6.4-8.9) g/dL Albumin (3.2-5.2) g/dL Globulin (2-4) g/dL Albumin/Globulin Ratio (1-3) Blood Type O Negative Antibody Screen Pending Assess/Plan/Problems-Billing Assessment: This is a 72 year old chronically ill, immobile woman who presented to the ED after a fall and was found to have a right femoral neck fracture. - Patient Problems (1) Fracture of femoral neck, right Comment: She is very elevated risk for perioperative complications. Based on these findings,it was recommended against surgery to [facility]. After d/w DR. Earl on 01/28/18 they agreed to palliative approach. Palliative consult in place. Cont morphine oral concentrate and lorazepam PO HANK (2) Chronic steroid use Comment: Cont home prednisone (3) Elevated troponin Comment: likely demand (4) Pneumonia Comment: continue ceftriaxone (5) Acute on chronic renal failure Comment: Improving (6) DVT prophylaxis Comment: coumadin d/c'd due to comfort care (7) COPD (chronic obstructive pulmonary disease) Comment: Continue home O2 and home prednisone (8) History of DVT (deep vein thrombosis) Comment: remote warfarin d/c'd Status and Disposition: inpatient
[2018-01-29] MEDS: PARoxetine HCL TAB* 10 MG PO SCH (17:22)
[2018-01-29] MEDS: Morphine ORAL CONCENTRATE* 5 MG/0.25 ML ORAL.SYRIN PO PRN ×2 (21:25→23:19)
[2018-01-29] MEDS ORDERED: HYDROmorphone INJ1* 1 MG/ML SYRINGE IV SLOW PU ONE (21:32)
--- NOTE | 2018-01-29 22:31 | PN ---
Hospitalist Progress Note Date of Service: 01/29/18 HOSPITALIST ADDENDUM CAT called at 9:30PM due to severe respiratory distress. Mrs Tovar is a 72yo F with multiple medical problems including lung CA, Crohn 's with brendan output ostomy, diastolic CHF, admitted with right hip fracture, deemed to be too high risk for surgical repair. Patient and her elected comfort care measures only earlier today. As per RN, patient was comfortable at change of shift, but around 9:30 became severely tachypneic. On arrival at bedside, she was in severe respiratory distress, with accessory muscle use and nasal flaring. Complained of pain and feeling "panicky". Lung sounds where coarse with diffuse rhonchi. She received Dilaudid 1mg x 2, Ativan 0.5mg IV x 1, and SL Morphine 5mg. After medications she calmed down and appears to be comfortable. Her arrived and we had a long conversation about what comfort care entails and her very poor prognosis. She understands she may need high doses of pain/ anxiety meds to be kept comfortable and this will decreased her level of consciousness and PO intake. I explained IVF will not add to her comfort as she already appears to be fluid overloaded and has a h/o CHF. Will resume her steroids IV as she may become uncomfortable without it, but if the plan is to go to [facility], the understands we'll have to stop IV meds and manage with PO/SL meds. If her condition continues to decline, she may be better served with inpatient hospice. 45 minutes critical care time.
[2018-01-29] MEDS: methylPREDNISolone SOD 40 MG* 1 ML VIAL IV SCH (23:19)
[2018-01-30] MEDS: HYDROmorphone INJ1* 1 MG/ML SYRINGE IV SLOW PU PRN ×8 (00:47→22:54)
[2018-01-30] MEDS: Morphine ORAL CONCENTRATE* 5 MG/0.25 ML ORAL.SYRIN PO PRN ×2 (02:26→09:40)
[2018-01-30] MEDS: LORazepam INJ* 2 MG/ML 1 ML VIAL IV PUSH PRN ×5 (02:43→22:53)
[2018-01-30] MEDS: LORazepam TAB(*) 0.5 MG PO SCH ×4 (05:19→22:55)
[2018-01-30] MEDS: Tiotropium CAP.INH* CAP.INH/18 MCG (USE ORDER SET !) INH SCH (07:45)
[2018-01-30] MEDS: methylPREDNISolone SOD 40 MG* 1 ML VIAL IV SCH (08:43)
[2018-01-30] MEDS: Opium Tincture* 6 MG/0.6 ML ORAL.LIQ SYRINGE PO SCH ×4 (08:47→21:03)
--- NOTE | 2018-01-30 12:05 | CONSULT ---
Palliative / Hospice Consult Ordering Provider: Kadi Kasper - Dr. France is PCP - Subjective Code Status: DNR Advance Directives Location: In Chart MOLST Part A Completed: Yes - completed with Mathew Okeefe Date: 01/30/18 MOLST Part E Completed:: Yes - completeed with Mathew Okeefe Date: 01/30/18 HCP Completed: Yes - Mathew Okeefe - History or Present Illness History or Present Illness: 72 yo female who fell with her walker while walking into the house. She had gone out to smoke a cigarette. She fell on her R side. She called an ambulance due to pain and had trouble getting up but she declined to go ER. Later because of increasing pain she called ambulance again and was taken to the ER. 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 She has been lying in her bed and sleeping most of the day . Will get up to eat or smoke. She was enrolled in hospice in the past for her lung cancer and currently is in the [facility] program. Lab Values: Laboratory Last Values WBC 12.8 10^3/ul (3.5-10.8) H 01/28/18 07:28 RBC 3.21 10^6/ul (4.00-5.40) L 01/28/18 07:28 Hgb 10.2 g/dl (12.0-16.0) L 01/28/18 07:28 Hct 31 % (35-47) L 01/28/18 07:28 MCV 97 fL (80-97) 01/28/18 07:28 MCH 32 pg (27-31) H 01/28/18 07:28 MCHC 33 g/dl (31-36) 01/28/18 07:28 RDW 16 % (10.5-15) H 01/28/18 07:28 Plt Count 287 10^3/ul (150-450) 01/28/18 07:28 MPV 7.8 fL (7.4-10.4) 01/28/18 07:28 Neut % (Auto) 83.3 % 01/28/18 07:28 Lymph % (Auto) 9.6 % 01/28/18 07:28 [place] % (Auto) 6.3 % 01/28/18 07:28 Eos % (Auto) 0.4 % 01/28/18 07:28 Baso % (Auto) 0.4 % 01/28/18 07:28 Absolute Neuts (auto) 10.7 10^3/ul (1.5-7.7) H 01/28/18 07:28 Absolute Lymphs (auto) 1.2 10^3/ul (1.0-4.8) 01/28/18 07:28 Absolute Monos (auto) 0.8 10^3/ul (0-0.8) 01/28/18 07:28 Absolute Eos (auto) 0 10^3/ul (0-0.6) 01/28/18 07:28 Absolute Basos (auto) 0 10^3/ul (0-0.2) 01/28/18 07:28 Absolute Nucleated RBC 0 10^3/ul 01/28/18 07:28 Neutrophils % 84 % 01/25/18 05:41 Lymphocytes % 9 % 01/25/18 05:41 Monocytes % 6 % 01/25/18 05:41 Eosinophils % 1 % 01/25/18 05:41 Nucleated RBC % 0 01/28/18 07:28 Abs Neuts (Manual) 10.2 10^3/ul (1.5-7.7) H 01/25/18 05:41 Abs Lymphs (Manual) 1.1 10^3/ul (1.0-4.8) 01/25/18 05:41 Abs Monocytes (Manual) 0.7 10^3/ul (0-0.8) 01/25/18 05:41 Absolute Eos (Manual) 0.1 10^3/ul (0-0.6) 01/25/18 05:41 Normal RBC Morphology Normal (Normal) 01/25/18 05:41 Hem Pathologist Commnt 01/25/18 05:41 INR (Anticoag Therapy) 0.94 (0.77-1.02) 01/28/18 07:28 APTT 38.9 seconds (26.0-36.3) H 01/24/18 03:44 Sodium 138 mmol/L (135-145) 01/28/18 07:28 Potassium 3.7 mmol/L (3.5-5.0) 01/28/18 07:28 Chloride 101 mmol/L (101-111) 01/28/18 07:28 Carbon Dioxide 24 mmol/L (22-32) 01/28/18 07:28 Anion Gap 13 mmol/L (2-11) H 01/28/18 07:28 BUN 24 mg/dL (6-24) 01/28/18 07:28 Creatinine 1.51 mg/dL (0.51-0.95) H 01/28/18 07:28 Est GFR ( Amer) 40.8 (>60) 01/28/18 07:28 Est GFR (Non-Af Amer) 33.7 (>60) 01/28/18 07:28 BUN/Creatinine Ratio 15.9 (8-20) 01/28/18 07:28 Glucose 146 mg/dL (70-100) H 01/28/18 07:28 Lactic Acid 1.3 mmol/L (0.5-2.0) 01/26/18 11:49 Calcium 8.0 mg/dL (8.6-10.3) L 01/28/18 07:28 Magnesium 2.4 mg/dL (1.9-2.7) 01/28/18 07:28 Total Bilirubin 0.40 mg/dL (0.2-1.0) 01/24/18 03:44 AST 26 U/L (13-39) 01/24/18 03:44 ALT 30 U/L (7-52) 01/24/18 03:44 Alkaline Phosphatase 173 U/L (34-104) H 01/24/18 03:44 Total Creatine Kinase 55 U/L (10-223) 01/24/18 03:44 Troponin I 0.03 ng/mL (<0.04) 01/24/18 15:52 Total Protein 6.9 g/dL (6.4-8.9) 01/24/18 03:44 Albumin 3.7 g/dL (3.2-5.2) 01/24/18 03:44 Globulin 3.2 g/dL (2-4) 01/24/18 03:44 Albumin/Globulin Ratio 1.2 (1-3) 01/24/18 03:44 Urine Color Yellow 01/24/18 08:39 Urine Appearance Cloudy 01/24/18 08:39 Urine pH 6.0 (5-9) 01/24/18 08:39 Ur Specific [place] 1.021 (1.010-1.030) 01/24/18 08:39 Urine Protein Negative (Negative) 01/24/18 08:39 Urine Ketones Negative (Negative) 01/24/18 08:39 Urine Blood Negative (Negative) 01/24/18 08:39 Urine Nitrate Negative (Negative) 01/24/18 08:39 Urine Bilirubin Negative (Negative) 01/24/18 08:39 Urine Urobilinogen Negative (Negative) 01/24/18 08:39 Ur Leukocyte Esterase Negative (Negative) 01/24/18 08:39 Urine Glucose Negative (Negative) 01/24/18 08:39 Urine Ascorbic Acid * (Negative) A 01/24/18 08:39 Blood Type O Negative 01/24/18 03:44 Antibody Screen Negative 01/24/18 03:44 - Objective Active Medications: Acetaminophen (Tylenol Tab*) 650 mg PO Q4H PRN PRN Reason: FEVER/PAIN Last Admin: 01/27/18 22:39 Dose: 650 mg Al Hydrox/Mg Hydrox/Simethicone (Maalox Plus*) 30 ml PO Q6H PRN PRN Reason: INDIGESTION Albuterol/Ipratropium (Duoneb (Albuterol 2.5 Mg/Ipratropium 0.5 Mg)) 1 neb INH Q2H PRN PRN Reason: SOB/WHEEZING Last Admin: 01/29/18 07:56 Dose: 1 neb Hydromorphone HCl (Dilaudid Inj1s*) 1 mg IV SLOW PU Q1H PRN PRN Reason: PAIN Last Admin: 01/30/18 07:20 Dose: 1 mg Ipratropium [place] (Atrovent 0.5 Mg Neb.Vesna*) 0.5 mg INH Q6HR PRN PRN Reason: WHEEZING Last Admin: 01/29/18 12:03 Dose: 0.5 mg Lorazepam (Ativan Tab(*)) 0.5 mg PO Q6H [facility] Last Admin: 01/30/18 11:55 Dose: Not Given Lorazepam (Ativan Inj*) 0.5 mg IV PUSH Q2H PRN PRN Reason: ANXIETY Last Admin: 01/30/18 10:50 Dose: 0.5 mg Methylprednisolone Sodium Succinate (Solu-Medrol 40 Mg) 10 mg IV DAILY [facility] Last Admin: 01/30/18 08:43 Dose: 10 mg Morphine Sulfate (Morphine Oral Concentrate*) 5 mg PO Q1H PRN PRN Reason: Pain/RR>24 Last Admin: 01/30/18 09:40 Dose: 5 mg Opium Tincture (Opium Tincture*) 6 mg PO QID [facility] Last Admin: 01/30/18 08:47 Dose: 6 mg Paroxetine HCl (Paxil Tab*) 30 mg PO QPM [facility] Last Admin: 01/29/18 17:22 Dose: Not Given Tiotropium [place] (Spiriva Cap.Inh*) 1 cap INH DAILY [facility] Last Admin: 01/30/18 07:45 Dose: 1 cap Vital Signs: Vital Signs: Temp Pulse Resp BP Pulse Ox 99.1 F 132 15 101/59 92 01/29/18 00:41 01/29/18 12:04 01/30/18 11:56 01/29/18 08:23 01/29/18 15:30 Patient Weight: Weight 56.699 kg Intake and Output: Intake & Output 01/28/18 01/29/18 01/30/18 01/31/18 06:59 06:59 06:59 06:59 Intake Total 80 976 75 Output Total 1250 1050 200 Balance -1170 -74 75 -200 Intake: IV Fluids 736 20 NS (0.9%) 736 20 IVPB 50 Vitamin K 50 Medicated IV 55 ceftriaxone 55 Oral 30 240 0 Output: Mcgill 375 450 Colostomy 200 100 Ileostomy 675 500 200 Other: # Bowel Movements 0 # Voids 0 ADLs: Meal Record Start: 01/24/18 09: 43 Freq: Status: Active Protocol: Created 01/24/18 09:43 System (Rec: 01/24/18 09:43 System [id number]) Document 01/26/18 11:05 [id number] (Rec: 01/26/18 11:06 [id number] SSU-C19) Document 01/26/18 13:59 [id number] (Rec: 01/26/18 14:01 [id number] U-C19) Document 01/27/18 13:29 [id number] (Rec: 01/27/18 13:29 [id number] SSU-C09) Document 01/28/18 13:30 [id number] (Rec: 01/28/18 13:30 [id number] SSU-C02) Intake and Output Start: 01/24/18 03: 22 Freq: Status: Active Protocol: Created 01/24/18 03:22 System (Rec: 01/24/18 03:22 System [id number]) Intake and Output Start: 01/24/18 09: 43 Freq: DAILY@0600,1400,2200 Status: Active Protocol: Created 01/24/18 09:43 System (Rec: 01/24/18 09:43 System SSU-M14) Document 01/24/18 16:13 [id number] (Rec: 01/24/18 16:15 [id number] SSU-M14) Document 01/24/18 22:33 [id number] (Rec: 01/24/18 22:37 [id number] SSU-M15) Document 01/25/18 02:40 [id number] (Rec: 01/25/18 02:55 [id number] [facility] Document 01/25/18 05:35 [id number] (Rec: 01/25/18 05:37 [id number] SSU-M18) Document 01/25/18 06:42 [id number] (Rec: 01/25/18 06:42 [id number] SSU-M17) Document 01/25/18 13:23 [id number] (Rec: 01/25/18 13:24 [id number] SSU-C03) Document 01/25/18 17:05 [id number] (Rec: 01/25/18 17:06 [id number] SSU-M17) Document 01/25/18 22:08 [id number] (Rec: 01/25/18 22:09 [id number] SSU-M17) Document 01/26/18 05:13 [id number] (Rec: 01/26/18 05:17 [id number] SSU-L02) Document 01/26/18 14:52 [id number] (Rec: 01/26/18 14:52 [id number] SSU-C19) Document 01/26/18 21:58 [id number] (Rec: 01/26/18 21:59 [id number] SSU-C19) Document 01/27/18 03:17 [id number] (Rec: 01/27/18 03:18 [id number] SSU-L02) Document 01/27/18 03:58 [id number] (Rec: 01/27/18 03:59 [id number] SSU-M06) Document 01/27/18 05:44 [id number] (Rec: 01/27/18 05:45 [id number] SSU-L02) Document 01/27/18 22:26 [id number] (Rec: 01/27/18 22:30 [id number] SSU-C05) Document 01/28/18 05:39 [id number] (Rec: 01/28/18 05:40 [id number] SSU-C02) Document 01/28/18 13:46 [id number] (Rec: 01/28/18 13:47 [id number] SSU-C02) Document 01/28/18 23:00 [id number] (Rec: 01/28/18 23:00 [id number] U-C19) Document 01/28/18 23:30 [id number] (Rec: 01/29/18 04:00 [id number] SSU-C05) Document 01/29/18 06:00 [id number] (Rec: 01/29/18 06:26 [id number] SSU-M07) Document 01/29/18 22:00 [id number] (Rec: 01/29/18 22:25 [id number] MED-C11) Document 01/30/18 05:56 [id number] (Rec: 01/30/18 05:57 [id number] MED-C11) Document 01/30/18 07:29 [id number] (Rec: 01/30/18 07:29 [id number] MED-M11) Head: Normal Eyes: No Scleral Icterus, PERRLA Ears/Nose/Mouth/Throat: NL Teeth, Lips, Gums, Mucous Membranes Moist, - - dry mucosa Neck: NL Appearance and Movements; NL JVP, Trachea Midline Cardiovascular: NL Sounds; No Murmurs; No JVD, RRR Abdominal: NL Sounds; No Tenderness; No Distention, No Hepatosplenomegaly, - - colostomy in place Extremities: No Clubbing, Cyanosis, - - trace edema in feet and hands Neurological: - - deferred due to comfort care Other Findings: Opened eyes to name being called. - Assessment Assessment: 72yo female with new R hip fracture not a surgical candidate because of her lung status requiring IV medication for pain control and poor intake. - Plan Consult Plan (MU): Hospice Plan: 1. Pamela is a candidate for hospice. Her MOSLT was updated with her Mathew. She is in chronic pain due to her hip fracture but is not a surgical candidate because of her COPD. Her oral intake has decreased and on this trajectory which her has been told she may in the next 48 hours. At this time she does not want to move her. If she has not she is a candidate for hospice because of her advanced COPD and unrepaired hip fracture and will pursue that path. Currently her pain is controlled with IV dilaudid and IV steriods. All of the discussion has been with the because Kalyan has been sedated . Thank you for this consult. - Time On Unit Date of Evaluation: 01/30/18 Hospice Consult Time in: 11:00 Hospice Consult Time Out: 12:30 Hospice Consult Time Total: 90 > 50% of Time Spend In Counseling or Coordinating Care: Yes
--- NOTE | 2018-01-30 12:25 | PN ---
Subjective Date of Service: 01/30/18 Interval History: Pt was in distress last night, placed on Dilaudid 1 mg IV Q1H and Solu Medrol. Now calm, awakes to voice, but minimally verbal Objective Active Medications: Acetaminophen (Tylenol Tab*) 650 mg PO Q4H PRN PRN Reason: FEVER/PAIN Last Admin: 01/27/18 22:39 Dose: 650 mg Al Hydrox/Mg Hydrox/Simethicone (Maalox Plus*) 30 ml PO Q6H PRN PRN Reason: INDIGESTION Albuterol/Ipratropium (Duoneb (Albuterol 2.5 Mg/Ipratropium 0.5 Mg)) 1 neb INH Q2H PRN PRN Reason: SOB/WHEEZING Last Admin: 01/29/18 07:56 Dose: 1 neb Hydromorphone HCl (Dilaudid Inj1s*) 1 mg IV SLOW PU Q1H PRN PRN Reason: PAIN Last Admin: 01/30/18 07:20 Dose: 1 mg Ipratropium [place] (Atrovent 0.5 Mg Neb.Vesna*) 0.5 mg INH Q6HR PRN PRN Reason: WHEEZING Last Admin: 01/29/18 12:03 Dose: 0.5 mg Lorazepam (Ativan Tab(*)) 0.5 mg PO Q6H [facility] Last Admin: 01/30/18 11:55 Dose: Not Given Lorazepam (Ativan Inj*) 0.5 mg IV PUSH Q2H PRN PRN Reason: ANXIETY Last Admin: 01/30/18 10:50 Dose: 0.5 mg Methylprednisolone Sodium Succinate (Solu-Medrol 40 Mg) 10 mg IV DAILY [facility] Last Admin: 01/30/18 08:43 Dose: 10 mg Morphine Sulfate (Morphine Oral Concentrate*) 5 mg PO Q1H PRN PRN Reason: Pain/RR>24 Last Admin: 01/30/18 09:40 Dose: 5 mg Opium Tincture (Opium Tincture*) 6 mg PO QID [facility] Last Admin: 01/30/18 08:47 Dose: 6 mg Paroxetine HCl (Paxil Tab*) 30 mg PO QPM [facility] Last Admin: 01/29/18 17:22 Dose: Not Given Tiotropium [place] (Spiriva Cap.Inh*) 1 cap INH DAILY [facility] Last Admin: 01/30/18 07:45 Dose: 1 cap Vital Signs - 8 hr 01/30/18 01/30/18 01/30/18 04:29 05:18 07:20 Respiratory 15 12 14 Rate 01/30/18 01/30/18 01/30/18 08:00 08:41 08:47 Respiratory 14 14 14 Rate 01/30/18 01/30/18 01/30/18 09:40 10:50 11:55 Respiratory 20 14 15 Rate 01/30/18 11:56 Respiratory 15 Rate Oxygen Devices in Use Now: Simple Face Mask Appearance: 72 yo F in nAD, lethargic, awakes to voice, orineted x 2 Eyes: No Scleral Icterus, PERRLA Ears/Nose/Mouth/Throat: - - dry mucosa Neck: NL Appearance and Movements; NL JVP Respiratory: Symmetrical Chest Expansion and Respiratory Effort, - - diffuse b/ l rhonchi Cardiovascular: NL Sounds; No Murmurs; No JVD, RRR Abdominal: NL Sounds; No Tenderness; No Distention, No Hepatosplenomegaly, - - colostomy in place Lymphatic: No Cervical Adenopathy Extremities: No Clubbing, Cyanosis, - - b/l UE's edema R>L Skin: No Nodules or Sclerosis, - - ebrasion on chin, ecchymoses on b/l arms Neurological: - - deferred due to comfort care Result Diagrams: 01/28/18 07:28 01/28/18 07:28 Additional Lab and Data: Lab Results 01/24/18 01/24/18 01/24/18 Range/Units 03:44 03:44 03:44 WBC 17.5 H (3.5-10.8) 10^3/ul RBC 4.32 (4.00-5.40) 10^6/ul Hgb 13.5 (12.0-16.0) g/dl Hct 41 (35-47) % MCV 94 (80-97) fL MCH 31 (27-31) pg MCHC 33 (31-36) g/dl RDW 15 (10.5-15) % Plt Count 341 (150-450) 10^3/ul MPV 7.7 (7.4-10.4) fL Neut % (Auto) 71.0 % Lymph % (Auto) 18.0 % [place] % (Auto) 9.9 % Eos % (Auto) 0.8 % Baso % (Auto) 0.3 % Absolute Neuts (auto) 12.5 H (1.5-7.7) 10^3/ul Absolute Lymphs (auto) 3.2 (1.0-4.8) 10^3/ul Absolute Monos (auto) 1.7 H (0-0.8) 10^3/ul Absolute Eos (auto) 0.1 (0-0.6) 10^3/ul Absolute Basos (auto) 0 (0-0.2) 10^3/ul Absolute Nucleated RBC 0 10^3/ul Nucleated RBC % 0 INR (Anticoag Therapy) 1.81 H (0.77-1.02) APTT 38.9 H (26.0-36.3) seconds Sodium 137 (135-145) mmol/L Potassium 3.1 L (3.5-5.0) mmol/L Chloride 82 L (101-111) mmol/L Carbon Dioxide 41 H* (22-32) mmol/L Anion Gap 14 H (2-11) mmol/L BUN 43 H (6-24) mg/dL Creatinine 2.36 H (0.51-0.95) mg/dL Est GFR ( Amer) 24.3 (>60) Est GFR (Non-Af Amer) 20.1 (>60) BUN/Creatinine Ratio 18.2 (8-20) Glucose 138 H (70-100) mg/dL Lactic Acid (0.5-2.0) mmol/L Calcium 9.1 (8.6-10.3) mg/dL Total Bilirubin 0.40 (0.2-1.0) mg/dL AST 26 (13-39) U/L ALT 30 (7-52) U/L Alkaline Phosphatase 173 H (34-104) U/L Troponin I 0.04 H* (<0.04) ng/mL Total Protein 6.9 (6.4-8.9) g/dL Albumin 3.7 (3.2-5.2) g/dL Globulin 3.2 (2-4) g/dL Albumin/Globulin Ratio 1.2 (1-3) Blood Type Antibody Screen 01/24/18 01/24/18 Range/Units 03:44 03:44 WBC (3.5-10.8) 10^3/ul RBC (4.00-5.40) 10^6/ul Hgb (12.0-16.0) g/dl Hct (35-47) % MCV (80-97) fL MCH (27-31) pg MCHC (31-36) g/dl RDW (10.5-15) % Plt Count (150-450) 10^3/ul MPV (7.4-10.4) fL Neut % (Auto) % Lymph % (Auto) % [place] % (Auto) % Eos % (Auto) % Baso % (Auto) % Absolute Neuts (auto) (1.5-7.7) 10^3/ul Absolute Lymphs (auto) (1.0-4.8) 10^3/ul Absolute Monos (auto) (0-0.8) 10^3/ul Absolute Eos (auto) (0-0.6) 10^3/ul Absolute Basos (auto) (0-0.2) 10^3/ul Absolute Nucleated RBC 10^3/ul Nucleated RBC % INR (Anticoag Therapy) (0.77-1.02) APTT (26.0-36.3) seconds Sodium (135-145) mmol/L Potassium (3.5-5.0) mmol/L Chloride (101-111) mmol/L Carbon Dioxide (22-32) mmol/L Anion Gap (2-11) mmol/L BUN (6-24) mg/dL Creatinine (0.51-0.95) mg/dL Est GFR ( Amer) (>60) Est GFR (Non-Af Amer) (>60) BUN/Creatinine Ratio (8-20) Glucose (70-100) mg/dL Lactic Acid 3.7 H* (0.5-2.0) mmol/L Calcium (8.6-10.3) mg/dL Total Bilirubin (0.2-1.0) mg/dL AST (13-39) U/L ALT (7-52) U/L Alkaline Phosphatase (34-104) U/L Troponin I (<0.04) ng/mL Total Protein (6.4-8.9) g/dL Albumin (3.2-5.2) g/dL Globulin (2-4) g/dL Albumin/Globulin Ratio (1-3) Blood Type O Negative Antibody Screen Pending Assess/Plan/Problems-Billing Assessment: This is a 72 year old chronically ill, immobile woman who presented to the ED after a fall and was found to have a right femoral neck fracture. - Patient Problems (1) Fracture of femoral neck, right Comment: She had very elevated risk for perioperative complications. Based on these findings,it was recommended against surgery to [facility] and Mathew. After d/w DR. Earl on 01/28/18 they agreed to palliative approach. Palliative consult in place. Family was offered hospice residence but would prefer to "see how she does" for the next 2 days (2) Chronic steroid use Comment: Cont Solu Medrol IV (3) Elevated troponin Comment: likely demand (4) Pneumonia Comment: antibiotics discontinued for comfort care (5) Acute on chronic renal failure Comment: not adressed today due to comfort care measures (6) DVT prophylaxis Comment: coumadin d/c'd due to comfort care (7) COPD (chronic obstructive pulmonary disease) Comment: with acute hypoxemic resp failure omn chronic resp failure, cont supportive 02 for now Prednisone switched to IV solu Medrol as per family's request to improve comfort in pt unable to swallow tabs for now (8) History of DVT (deep vein thrombosis) Comment: remote warfarin d/c'd Status and Disposition: inpatient
[2018-01-30] MEDS: PARoxetine HCL TAB* 10 MG PO SCH (18:27)
[2018-01-31] MEDS: HYDROmorphone INJ1* 1 MG/ML SYRINGE IV SLOW PU PRN ×6 (03:28→22:09)
[2018-01-31] MEDS: LORazepam TAB(*) 0.5 MG PO SCH ×4 (05:21→22:30)
[2018-01-31] MEDS: LORazepam INJ* 2 MG/ML 1 ML VIAL IV PUSH PRN ×4 (05:22→21:07)
[2018-01-31] MEDS: Tiotropium CAP.INH* CAP.INH/18 MCG (USE ORDER SET !) INH SCH (07:39)
[2018-01-31] MEDS: methylPREDNISolone SOD 40 MG* 1 ML VIAL IV SCH (08:58)
[2018-01-31] MEDS: Opium Tincture* 6 MG/0.6 ML ORAL.LIQ SYRINGE PO SCH ×4 (08:58→21:05)
[2018-01-31] MEDS: Morphine ORAL CONCENTRATE* 5 MG/0.25 ML ORAL.SYRIN PO PRN ×6 (10:56→19:59)
[2018-01-31] MEDS: Ipratropium 0.5MG/2.5ML NEB* 0.5 MG/2.5 ML NEB.SOLN INH PRN (11:35)
[2018-01-31] MEDS: PARoxetine HCL TAB* 10 MG PO SCH (17:05)
--- NOTE | 2018-01-31 18:04 | PN ---
Subjective Date of Service: 01/31/18 Interval History: Snoring loudly today on exam, Not responding to moderate volume voice. Friend Blossom at bedside. Sometimes raising hands above head, perhaps involuntarily per Denies. Per RN no signs of acute discomfort. Did say "thank you" earlier today not eating or taking other pills. taking oral concentrate morphine and IV prn ativan frequently. decreasing uop. Objective Active Medications: Acetaminophen (Tylenol Tab*) 650 mg PO Q4H PRN PRN Reason: FEVER/PAIN Last Admin: 01/27/18 22:39 Dose: 650 mg Al Hydrox/Mg Hydrox/Simethicone (Maalox Plus*) 30 ml PO Q6H PRN PRN Reason: INDIGESTION Albuterol/Ipratropium (Duoneb (Albuterol 2.5 Mg/Ipratropium 0.5 Mg)) 1 neb INH Q2H PRN PRN Reason: SOB/WHEEZING Last Admin: 01/29/18 07:56 Dose: 1 neb Hydromorphone HCl (Dilaudid Inj1s*) 1 mg IV SLOW PU Q1H PRN PRN Reason: PAIN Last Admin: 01/31/18 14:25 Dose: 1 mg Ipratropium [place] (Atrovent 0.5 Mg Neb.Vesna*) 0.5 mg INH Q6HR PRN PRN Reason: WHEEZING Last Admin: 01/31/18 11:35 Dose: 0.5 mg Lorazepam (Ativan Tab(*)) 0.5 mg PO Q6H [facility] Last Admin: 01/31/18 17:03 Dose: Not Given Lorazepam (Ativan Inj*) 0.5 mg IV PUSH Q2H PRN PRN Reason: ANXIETY Last Admin: 01/31/18 16:59 Dose: 0.5 mg Methylprednisolone Sodium Succinate (Solu-Medrol 40 Mg) 10 mg IV DAILY [facility] Last Admin: 01/31/18 08:58 Dose: 10 mg Morphine Sulfate (Morphine Oral Concentrate*) 5 mg PO Q1H PRN PRN Reason: Pain/RR>24 Last Admin: 01/31/18 17:45 Dose: 5 mg Opium Tincture (Opium Tincture*) 6 mg PO QID [facility] Last Admin: 01/31/18 17:03 Dose: Not Given Paroxetine HCl (Paxil Tab*) 30 mg PO QPM [facility] Last Admin: 01/31/18 17:05 Dose: Not Given Tiotropium [place] (Spiriva Cap.Inh*) 1 cap INH DAILY [facility] Last Admin: 01/31/18 07:39 Dose: 1 cap Vital Signs - 8 hr 01/31/18 01/31/18 01/31/18 10:19 10:20 10:56 Pulse Rate Respiratory 18 18 24 Rate O2 Sat by Pulse Oximetry 01/31/18 01/31/18 01/31/18 11:36 11:39 12:09 Pulse Rate 105 Respiratory 18 20 22 Rate O2 Sat by Pulse 80 Oximetry 01/31/18 01/31/18 01/31/18 12:34 13:05 13:40 Pulse Rate Respiratory 18 18 22 Rate O2 Sat by Pulse Oximetry 01/31/18 01/31/18 01/31/18 14:25 15:44 15:50 Pulse Rate Respiratory 22 20 22 Rate O2 Sat by Pulse Oximetry 01/31/18 01/31/18 01/31/18 16:59 17:16 17:17 Pulse Rate Respiratory 20 20 20 Rate O2 Sat by Pulse Oximetry 01/31/18 17:45 Pulse Rate Respiratory 22 Rate O2 Sat by Pulse Oximetry Oxygen Devices in Use Now: Nasal Cannula Appearance: Chronically ill appearing. Somnolent. Eyes: No Scleral Icterus Respiratory: - - anteriorly clear to ausculatation w/o wheezing, rales or rhonchi. Snoring loudly. Cardiovascular: NL Sounds; No Murmurs; No JVD Abdominal: NL Sounds; No Tenderness; No Distention Extremities: - - right arm slightly edematous. trace edema LE. Skin: - - bruise on chin. Neurological: - - snoring. not responsive to voice. Result Diagrams: 01/28/18 07:28 01/28/18 07:28 Assess/Plan/Problems-Billing Assessment: 72 year old PMH COPD, chronic hypoxic respiratory failure, steroid dependant , Lung Cancer, Crohn's s/p ileostomy, FTT for several months, immobile woman who presented to the ED after a fall and was found to have a right femoral neck fracture. Now on (mostly) comfort measures with addtional therapies being supplemental oxygen, IV steroids. - Patient Problems (1) Fracture of femoral neck, right Current Visit: Yes Status: Acute Code(s): S72.001A - FRACTURE OF UNSP PART OF NECK OF RIGHT FEMUR, INIT SNOMED Code(s): 6143918 Comment: She had very elevated risk for perioperative complications. Based on these findings,it was recommended against surgery to [facility] and Mathew. After d/w DR. Earl on 01/28/18 they agreed to palliative approach. Appreciate Palliative recs. Family was offered hospice residence but would prefer to "see how she does" over the weekend. getting scheduled ativan 0.5mg IV q2h prn and 0.5 mg po q6h standing, morphine oral concentrate 5mg q1h prn (2) Chronic respiratory failure with hypoxia Current Visit: No Status: Acute Comment: - Currently 4L NC. - Continue Oral morphine and atvian prn (3) Chronic steroid use Current Visit: Yes Status: Acute Code(s): EFL5215 - SNOMED Code(s): 611647615 Comment: patient is getting Solu Medrol IV, consider stopping depending on goals of care. (4) DNR (do not resuscitate) Current Visit: No Status: Acute Priority: Medium (5) Lung cancer Current Visit: No Status: Acute Code(s): C34.90 - MALIGNANT NEOPLASM OF UNSP PART OF UNSP BRONCHUS OR LUNG SNOMED Code(s): 022022068 Comment: now on comfort measures. Status and Disposition: medicine inpatient,
[2018-02-01] MEDS: LORazepam INJ* 2 MG/ML 1 ML VIAL IV PUSH PRN ×7 (00:54→21:19)
[2018-02-01] MEDS: HYDROmorphone INJ1* 1 MG/ML SYRINGE IV SLOW PU PRN ×11 (00:54→21:17)
[2018-02-01] MEDS: Morphine ORAL CONCENTRATE* 5 MG/0.25 ML ORAL.SYRIN PO PRN ×6 (01:01→21:18)
[2018-02-01] MEDS: LORazepam TAB(*) 0.5 MG PO SCH ×4 (04:31→21:02)
[2018-02-01] MEDS: Tiotropium CAP.INH* CAP.INH/18 MCG (USE ORDER SET !) INH SCH (07:40)
[2018-02-01] MEDS: methylPREDNISolone SOD 40 MG* 1 ML VIAL IV SCH (07:40)
[2018-02-01] MEDS: Opium Tincture* 6 MG/0.6 ML ORAL.LIQ SYRINGE PO SCH ×4 (07:41→21:02)
[2018-02-01] MEDS: PARoxetine HCL TAB* 10 MG PO SCH (17:03)
--- NOTE | 2018-02-01 18:34 | PN ---
Subjective Date of Service: 02/01/18 Interval History: medicated frequently with IV ativan and po concentrated morphine with intermittent IV dialudid. Occasionally reaching above head. Nikki at bedside, she explains that there had been a hospicare bed available friday but they appealed discharge. I later Talked to VANESSA Whitfield and that was still pending resolution. not responding to voice or squeeze of hands. not taking anything po other than morphine. Objective Active Medications: Acetaminophen (Tylenol Tab*) 650 mg PO Q4H PRN PRN Reason: FEVER/PAIN Last Admin: 01/27/18 22:39 Dose: 650 mg Al Hydrox/Mg Hydrox/Simethicone (Maalox Plus*) 30 ml PO Q6H PRN PRN Reason: INDIGESTION Albuterol/Ipratropium (Duoneb (Albuterol 2.5 Mg/Ipratropium 0.5 Mg)) 1 neb INH Q2H PRN PRN Reason: SOB/WHEEZING Last Admin: 01/29/18 07:56 Dose: 1 neb Hydromorphone HCl (Dilaudid Inj1s*) 1 mg IV SLOW PU Q1H PRN PRN Reason: PAIN Last Admin: 02/01/18 18:20 Dose: 1 mg Ipratropium [place] (Atrovent 0.5 Mg Neb.Vesna*) 0.5 mg INH Q6HR PRN PRN Reason: WHEEZING Last Admin: 01/31/18 11:35 Dose: 0.5 mg Lorazepam (Ativan Tab(*)) 0.5 mg PO Q6H [facility] Last Admin: 02/01/18 15:02 Dose: Not Given Lorazepam (Ativan Inj*) 0.5 mg IV PUSH Q2H PRN PRN Reason: ANXIETY Last Admin: 02/01/18 16:47 Dose: 0.5 mg Methylprednisolone Sodium Succinate (Solu-Medrol 40 Mg) 10 mg IV DAILY [facility] Last Admin: 02/01/18 07:40 Dose: 10 mg Morphine Sulfate (Morphine Oral Concentrate*) 5 mg PO Q1H PRN PRN Reason: Pain/RR>24 Last Admin: 02/01/18 18:23 Dose: 5 mg Opium Tincture (Opium Tincture*) 6 mg PO QID [facility] Last Admin: 02/01/18 15:02 Dose: Not Given Paroxetine HCl (Paxil Tab*) 30 mg PO QPM [facility] Last Admin: 02/01/18 17:03 Dose: Not Given Tiotropium [place] (Spiriva Cap.Inh*) 1 cap INH DAILY [facility] Last Admin: 02/01/18 07:40 Dose: Not Given Vital Signs - 8 hr 02/01/18 02/01/18 02/01/18 11:00 11:26 12:16 Respiratory 26 22 20 Rate 02/01/18 02/01/18 02/01/18 12:17 13:08 14:59 Respiratory 14 26 20 Rate 02/01/18 02/01/18 02/01/18 15:02 15:06 16:31 Respiratory 22 22 22 Rate 02/01/18 02/01/18 02/01/18 16:47 16:48 18:20 Respiratory 26 26 16 Rate 02/01/18 02/01/18 18:23 18:30 Respiratory 16 22 Rate Oxygen Devices in Use Now: Nasal Cannula Appearance: NAD, snoring loudly, some belly breathing. Eyes: No Scleral Icterus, - - PERRL, does not track when eyes opened. Ears/Nose/Mouth/Throat: NL Teeth, Lips, Gums Neck: NL Appearance and Movements; NL JVP Respiratory: - - rhonchrous snoring. no wheezing or rales anteriorly Cardiovascular: NL Sounds; No Murmurs; No JVD Abdominal: NL Sounds; No Tenderness; No Distention Extremities: - - 1+ swelling right arm. no LE edema. Neurological: - - not responsive to moderate voice, squeezing of hands. Per report [facility] Result Diagrams: 01/28/18 07:28 01/28/18 07:28 Additional Lab and Data: Lab Results 01/24/18 01/24/18 01/24/18 Range/Units 03:44 03:44 03:44 WBC 17.5 H (3.5-10.8) 10^3/ul RBC 4.32 (4.00-5.40) 10^6/ul Hgb 13.5 (12.0-16.0) g/dl Hct 41 (35-47) % MCV 94 (80-97) fL MCH 31 (27-31) pg MCHC 33 (31-36) g/dl RDW 15 (10.5-15) % Plt Count 341 (150-450) 10^3/ul MPV 7.7 (7.4-10.4) fL Neut % (Auto) 71.0 % Lymph % (Auto) 18.0 % [place] % (Auto) 9.9 % Eos % (Auto) 0.8 % Baso % (Auto) 0.3 % Absolute Neuts (auto) 12.5 H (1.5-7.7) 10^3/ul Absolute Lymphs (auto) 3.2 (1.0-4.8) 10^3/ul Absolute Monos (auto) 1.7 H (0-0.8) 10^3/ul Absolute Eos (auto) 0.1 (0-0.6) 10^3/ul Absolute Basos (auto) 0 (0-0.2) 10^3/ul Absolute Nucleated RBC 0 10^3/ul Nucleated RBC % 0 INR (Anticoag Therapy) 1.81 H (0.77-1.02) APTT 38.9 H (26.0-36.3) seconds Sodium 137 (135-145) mmol/L Potassium 3.1 L (3.5-5.0) mmol/L Chloride 82 L (101-111) mmol/L Carbon Dioxide 41 H* (22-32) mmol/L Anion Gap 14 H (2-11) mmol/L BUN 43 H (6-24) mg/dL Creatinine 2.36 H (0.51-0.95) mg/dL Est GFR ( Amer) 24.3 (>60) Est GFR (Non-Af Amer) 20.1 (>60) BUN/Creatinine Ratio 18.2 (8-20) Glucose 138 H (70-100) mg/dL Lactic Acid (0.5-2.0) mmol/L Calcium 9.1 (8.6-10.3) mg/dL Total Bilirubin 0.40 (0.2-1.0) mg/dL AST 26 (13-39) U/L ALT 30 (7-52) U/L Alkaline Phosphatase 173 H (34-104) U/L Troponin I 0.04 H* (<0.04) ng/mL Total Protein 6.9 (6.4-8.9) g/dL Albumin 3.7 (3.2-5.2) g/dL Globulin 3.2 (2-4) g/dL Albumin/Globulin Ratio 1.2 (1-3) Blood Type Antibody Screen 01/24/18 01/24/18 Range/Units 03:44 03:44 WBC (3.5-10.8) 10^3/ul RBC (4.00-5.40) 10^6/ul Hgb (12.0-16.0) g/dl Hct (35-47) % MCV (80-97) fL MCH (27-31) pg MCHC (31-36) g/dl RDW (10.5-15) % Plt Count (150-450) 10^3/ul MPV (7.4-10.4) fL Neut % (Auto) % Lymph % (Auto) % [place] % (Auto) % Eos % (Auto) % Baso % (Auto) % Absolute Neuts (auto) (1.5-7.7) 10^3/ul Absolute Lymphs (auto) (1.0-4.8) 10^3/ul Absolute Monos (auto) (0-0.8) 10^3/ul Absolute Eos (auto) (0-0.6) 10^3/ul Absolute Basos (auto) (0-0.2) 10^3/ul Absolute Nucleated RBC 10^3/ul Nucleated RBC % INR (Anticoag Therapy) (0.77-1.02) APTT (26.0-36.3) seconds Sodium (135-145) mmol/L Potassium (3.5-5.0) mmol/L Chloride (101-111) mmol/L Carbon Dioxide (22-32) mmol/L Anion Gap (2-11) mmol/L BUN (6-24) mg/dL Creatinine (0.51-0.95) mg/dL Est GFR ( Amer) (>60) Est GFR (Non-Af Amer) (>60) BUN/Creatinine Ratio (8-20) Glucose (70-100) mg/dL Lactic Acid 3.7 H* (0.5-2.0) mmol/L Calcium (8.6-10.3) mg/dL Total Bilirubin (0.2-1.0) mg/dL AST (13-39) U/L ALT (7-52) U/L Alkaline Phosphatase (34-104) U/L Troponin I (<0.04) ng/mL Total Protein (6.4-8.9) g/dL Albumin (3.2-5.2) g/dL Globulin (2-4) g/dL Albumin/Globulin Ratio (1-3) Blood Type O Negative Antibody Screen Pending Assess/Plan/Problems-Billing Assessment: 72 year old PMH COPD, chronic hypoxic respiratory failure, steroid dependant , Lung Cancer, Crohn's s/p ileostomy, FTT for several months, immobile woman who presented to the ED after a fall and was found to have a right femoral neck fracture. Now on (mostly) comfort measures with additional therapies being supplemental oxygen, IV steroids. - Patient Problems (1) Fracture of femoral neck, right Current Visit: Yes Status: Acute Code(s): S72.001A - FRACTURE OF UNSP PART OF NECK OF RIGHT FEMUR, INIT SNOMED Code(s): 5302298 Comment: She had very elevated risk for perioperative complications. Based on these findings,it was recommended against surgery to [place]. After d/w DR. Earl on 01/28/18 they agreed to palliative approach. Appreciate Palliative recs. Family was offered hospice residence but would prefer to "see how she does" over the weekend. Mathew now clarifies that they appealed discharge on to [facility] on Friday. getting scheduled ativan 0.5mg IV q2h prn and 0.5 mg po q6h standing, morphine oral concentrate 5mg q1h prn (2) Chronic respiratory failure with hypoxia Current Visit: No Status: Acute Comment: - Currently 4L NC. - Continue Oral morphine and atvian prn (3) Chronic steroid use Current Visit: Yes Status: Acute Code(s): ZIX4190 - SNOMED Code(s): 798427559 Comment: patient is getting Solu Medrol IV, consider stopping depending on goals of care. (4) DNR (do not resuscitate) Current Visit: No Status: Acute Priority: Medium (5) Lung cancer Current Visit: No Status: Acute Code(s): C34.90 - MALIGNANT NEOPLASM OF UNSP PART OF UNSP BRONCHUS OR LUNG SNOMED Code(s): 558730744 Comment: now on comfort measures. Status and Disposition: medicine inpatient, likely transfer to [facility] vs stay hospice as an inpatient.
[2018-02-02] MEDS: Morphine ORAL CONCENTRATE* 5 MG/0.25 ML ORAL.SYRIN PO PRN ×4 (02:40→08:38)
[2018-02-02] MEDS: LORazepam INJ* 2 MG/ML 1 ML VIAL IV PUSH PRN ×9 (02:41→23:18)
[2018-02-02] MEDS: HYDROmorphone INJ1* 1 MG/ML SYRINGE IV SLOW PU PRN ×7 (04:28→23:18)
[2018-02-02] MEDS: LORazepam TAB(*) 0.5 MG PO SCH ×4 (05:51→23:10)
[2018-02-02] MEDS ORDERED: Scopolamine 1.5 mg* PATCH TRANSDERM SCH (06:00)
[2018-02-02] MEDS: Tiotropium CAP.INH* CAP.INH/18 MCG (USE ORDER SET !) INH SCH (07:20)
[2018-02-02] MEDS: methylPREDNISolone SOD 40 MG* 1 ML VIAL IV SCH (07:30)
[2018-02-02] MEDS: Opium Tincture* 6 MG/0.6 ML ORAL.LIQ SYRINGE PO SCH ×4 (07:33→21:47)
[2018-02-02] MEDS ORDERED: Calcium Gluconate INJ* 1 GM in NS 0.9% 50 ML* 50 ML IVPB ONE (09:00)
--- NOTE | 2018-02-02 12:58 | PN ---
Progress Note - Progress Note Date of Service: 02/02/18 Note: Asked to see patient as she has now been denied Medicare coverage for continued hospitalization. She has been taking nothing po for several days, getting minimal IV fluid for flushes, has severely declining urine output, and no ileostomy output. She has been unresponsive. She has upper airway " rattle ", rhonchorous lungs and I:E ratio is 1:3. I suspect she will in a day or two. We would be able to admit her to the [facility] [place] residence tomorrow, if desired. It might be beneficial to decrease her IV Dilaudid to minimize fluid administration which will prolong the process of her dying. She gets 5 cc per flush and can be getting up to 120 cc per day if given hourly.
[2018-02-02] MEDS ORDERED: Morphine ORAL CONCENTRATE* 5 MG/0.25 ML ORAL.SYRIN PO PRN (14:00)
--- NOTE | 2018-02-02 15:30 | PN ---
Subjective Date of Service: 02/02/18 Interval History: Pt seen and examined. Meds and labs reviewed. CC: N/A ROS: Could not be reliably assesed PHYSICAL EXAM: GEN APPEARANCE: Asleep, nonresponsive, slightly tachypnic HEENT: NC/AT, PERRLA, moist oral mucosa, (-) throat erythema NECK: Soft, supple, (-) cervical LAD, (-)JVD HEART: S1S2 WNL, RRR, No MRG CHEST: CTA, BL, GAE, No W/R/R ABD: Soft, ND/NT, NABS 4x Q EXT: No C/C/E SKIN: Warm to touch PSYCH: Could not be assessed Objective Active Medications: Acetaminophen (Tylenol Tab*) 650 mg PO Q4H PRN PRN Reason: FEVER/PAIN Last Admin: 01/27/18 22:39 Dose: 650 mg Al Hydrox/Mg Hydrox/Simethicone (Maalox Plus*) 30 ml PO Q6H PRN PRN Reason: INDIGESTION Albuterol/Ipratropium (Duoneb (Albuterol 2.5 Mg/Ipratropium 0.5 Mg)) 1 neb INH Q2H PRN PRN Reason: SOB/WHEEZING Last Admin: 01/29/18 07:56 Dose: 1 neb Hydromorphone HCl (Dilaudid Inj1s*) 1 mg IV SLOW PU Q2H PRN PRN Reason: PAIN Ipratropium [place] (Atrovent 0.5 Mg Neb.Vesna*) 0.5 mg INH Q6HR PRN PRN Reason: WHEEZING Last Admin: 01/31/18 11:35 Dose: 0.5 mg Lorazepam (Ativan Tab(*)) 0.5 mg PO Q6H [facility] Last Admin: 02/02/18 10:42 Dose: Not Given Lorazepam (Ativan Inj*) 0.5 mg IV PUSH Q2H PRN PRN Reason: ANXIETY Last Admin: 02/02/18 13:27 Dose: 0.5 mg Morphine Sulfate (Morphine Oral Concentrate*) 20 mg PO Q2H PRN PRN Reason: Pain/RR>24 Last Admin: 02/02/18 13:29 Dose: 20 mg Morphine Sulfate (Morphine Oral Concentrate*) 10 mg SL Q1H PRN PRN Reason: Pain/SOB/Anxiety/Resp dist Opium Tincture (Opium Tincture*) 6 mg PO QID [facility] Last Admin: 02/02/18 12:52 Dose: Not Given Paroxetine HCl (Paxil Tab*) 30 mg PO QPM [facility] Last Admin: 02/01/18 17:03 Dose: Not Given Pharmacy Profile Note (Scopolamine Patch Remove*) 1 note PATCH OFF 0530 [facility] Scopolamine (Transderm-Scop 1.5 Mg Patch*) 1 patch TRANSDERM Q72H [facility] Last Admin: 02/02/18 07:01 Dose: 1 patch Tiotropium [place] (Spiriva Cap.Inh*) 1 cap INH DAILY [facility] Last Admin: 02/02/18 07:20 Dose: Not Given Vital Signs - 8 hr 02/02/18 02/02/18 02/02/18 07:30 07:31 07:33 Respiratory 30 30 30 Rate 02/02/18 02/02/18 02/02/18 07:36 07:38 08:38 Respiratory 30 30 16 Rate 02/02/18 02/02/18 02/02/18 10:32 10:34 10:41 Respiratory 24 22 22 Rate 02/02/18 02/02/18 02/02/18 11:42 11:43 13:27 Respiratory 20 20 34 Rate 02/02/18 02/02/18 02/02/18 13:29 15:02 15:06 Respiratory 38 22 22 Rate Oxygen Devices in Use Now: Nasal Cannula Result Diagrams: 01/28/18 07:28 01/28/18 07:28 Additional Lab and Data: Lab Results 01/24/18 01/24/18 01/24/18 Range/Units 03:44 03:44 03:44 WBC 17.5 H (3.5-10.8) 10^3/ul RBC 4.32 (4.00-5.40) 10^6/ul Hgb 13.5 (12.0-16.0) g/dl Hct 41 (35-47) % MCV 94 (80-97) fL MCH 31 (27-31) pg MCHC 33 (31-36) g/dl RDW 15 (10.5-15) % Plt Count 341 (150-450) 10^3/ul MPV 7.7 (7.4-10.4) fL Neut % (Auto) 71.0 % Lymph % (Auto) 18.0 % [place] % (Auto) 9.9 % Eos % (Auto) 0.8 % Baso % (Auto) 0.3 % Absolute Neuts (auto) 12.5 H (1.5-7.7) 10^3/ul Absolute Lymphs (auto) 3.2 (1.0-4.8) 10^3/ul Absolute Monos (auto) 1.7 H (0-0.8) 10^3/ul Absolute Eos (auto) 0.1 (0-0.6) 10^3/ul Absolute Basos (auto) 0 (0-0.2) 10^3/ul Absolute Nucleated RBC 0 10^3/ul Nucleated RBC % 0 INR (Anticoag Therapy) 1.81 H (0.77-1.02) APTT 38.9 H (26.0-36.3) seconds Sodium 137 (135-145) mmol/L Potassium 3.1 L (3.5-5.0) mmol/L Chloride 82 L (101-111) mmol/L Carbon Dioxide 41 H* (22-32) mmol/L Anion Gap 14 H (2-11) mmol/L BUN 43 H (6-24) mg/dL Creatinine 2.36 H (0.51-0.95) mg/dL Est GFR ( Amer) 24.3 (>60) Est GFR (Non-Af Amer) 20.1 (>60) BUN/Creatinine Ratio 18.2 (8-20) Glucose 138 H (70-100) mg/dL Lactic Acid (0.5-2.0) mmol/L Calcium 9.1 (8.6-10.3) mg/dL Total Bilirubin 0.40 (0.2-1.0) mg/dL AST 26 (13-39) U/L ALT 30 (7-52) U/L Alkaline Phosphatase 173 H (34-104) U/L Troponin I 0.04 H* (<0.04) ng/mL Total Protein 6.9 (6.4-8.9) g/dL Albumin 3.7 (3.2-5.2) g/dL Globulin 3.2 (2-4) g/dL Albumin/Globulin Ratio 1.2 (1-3) Blood Type Antibody Screen 01/24/18 01/24/18 Range/Units 03:44 03:44 WBC (3.5-10.8) 10^3/ul RBC (4.00-5.40) 10^6/ul Hgb (12.0-16.0) g/dl Hct (35-47) % MCV (80-97) fL MCH (27-31) pg MCHC (31-36) g/dl RDW (10.5-15) % Plt Count (150-450) 10^3/ul MPV (7.4-10.4) fL Neut % (Auto) % Lymph % (Auto) % [place] % (Auto) % Eos % (Auto) % Baso % (Auto) % Absolute Neuts (auto) (1.5-7.7) 10^3/ul Absolute Lymphs (auto) (1.0-4.8) 10^3/ul Absolute Monos (auto) (0-0.8) 10^3/ul Absolute Eos (auto) (0-0.6) 10^3/ul Absolute Basos (auto) (0-0.2) 10^3/ul Absolute Nucleated RBC 10^3/ul Nucleated RBC % INR (Anticoag Therapy) (0.77-1.02) APTT (26.0-36.3) seconds Sodium (135-145) mmol/L Potassium (3.5-5.0) mmol/L Chloride (101-111) mmol/L Carbon Dioxide (22-32) mmol/L Anion Gap (2-11) mmol/L BUN (6-24) mg/dL Creatinine (0.51-0.95) mg/dL Est GFR ( Amer) (>60) Est GFR (Non-Af Amer) (>60) BUN/Creatinine Ratio (8-20) Glucose (70-100) mg/dL Lactic Acid 3.7 H* (0.5-2.0) mmol/L Calcium (8.6-10.3) mg/dL Total Bilirubin (0.2-1.0) mg/dL AST (13-39) U/L ALT (7-52) U/L Alkaline Phosphatase (34-104) U/L Troponin I (<0.04) ng/mL Total Protein (6.4-8.9) g/dL Albumin (3.2-5.2) g/dL Globulin (2-4) g/dL Albumin/Globulin Ratio (1-3) Blood Type O Negative Antibody Screen Pending Assess/Plan/Problems-Billing Assessment: 72 year old PMH COPD, chronic hypoxic respiratory failure, steroid dependant , Lung Cancer, Crohn's s/p ileostomy, FTT for several months, immobile woman who presented to the ED after a fall and was found to have a right femoral neck fracture. Now on (mostly) comfort measures with additional therapies being supplemental oxygen, IV steroids. - Patient Problems (1) Fracture of femoral neck, right Current Visit: Yes Status: Acute Code(s): S72.001A - FRACTURE OF UNSP PART OF NECK OF RIGHT FEMUR, INIT SNOMED Code(s): 1471814 Comment: -Based on her high perioperative risk, it was recommended against surgery to [facility]. After d/w DR. Earl on 01/28/18 they agreed to palliative approach. -Appreciate Dr. Win re-eval and will continue to monitor pt given poor PO intake and pt more unresponsive today with decreasing UO. Pt may pass soon, however, may be D/Cd tomorrow if pt still stable by AM -Pt comfort measures only (2) Chronic respiratory failure with hypoxia Current Visit: No Status: Acute Comment: - Continue Oral morphine and atvian prn -Per Dr. Win reccs, increased interval between Dilaudid dosing and placed on PRN SL Morphine for breakthroughs (3) Chronic steroid use Current Visit: Yes Status: Acute Code(s): OTW1583 - SNOMED Code(s): 039621142 Comment: -D/C low dose IV Solumedrol given goal of care is [employer] (4) Lung cancer Current Visit: No Status: Acute Code(s): C34.90 - MALIGNANT NEOPLASM OF UNSP PART OF UNSP BRONCHUS OR LUNG SNOMED Code(s): 383989639 Comment: now on comfort measures. Status and Disposition: -Continue to observe o/n and [facility]
[2018-02-02] MEDS: PARoxetine HCL TAB* 10 MG PO SCH (16:36)
[2018-02-02] MEDS: Morphine ORAL CONCENTRATE* 5 MG/0.25 ML ORAL.SYRIN SL PRN ×3 (17:40→21:48)
[2018-02-03] MEDS: Morphine ORAL CONCENTRATE* 5 MG/0.25 ML ORAL.SYRIN SL PRN ×4 (00:18→06:30)
[2018-02-03] MEDS: HYDROmorphone INJ1* 1 MG/ML SYRINGE IV SLOW PU PRN ×3 (01:21→05:43)
[2018-02-03] MEDS: LORazepam INJ* 2 MG/ML 1 ML VIAL IV PUSH PRN ×3 (01:22→05:43)
[2018-02-03] MEDS: LORazepam TAB(*) 0.5 MG PO SCH (05:36)
--- NOTE | 2018-02-03 15:43 | DS ---
DATE OF ADMISSION: 01/24/2018. DATE OF : 02/03/2018. DISCHARGE DIAGNOSES: 1. Fracture of the right femoral neck. 2. Chronic respiratory failure with hypoxia, history of. 3. History of chronic steroid use. HISTORY OF PRESENT ILLNESS/HOSPITAL COURSE: The patient is a 72-year-old lady with a history of COPD, lung cancer, and Crohn's disease who presented to the emergency department on 01/24/2018 after a mechanical fall at home the night before. She mentioned that she was using her walker to go outside and smoke and when she came back into the house, her walker got caught on the lip of the doorway and fell forward onto her right side. She then subsequently sustained a right femoral neck fracture. Unfortunately, given she has high perioperative risk, surgery was not recommended after being seen by Dr. Earl. By 01/28/2018 , the patient and family had agreed with palliative approach and was then subsequently made comfort measures only. She has been evaluated by Dr. Quintana who deemed her appropriate for [facility]; however, she deteriorated at the time of her planned transfer to [facility] and hence we kept her in the hospital to continue her end of life hospice care. She ; per nursing documentation she on 02/03/2018 at 6:30 a.m. Apical and radial pulses were noted to be absent for one full minute. Dr. Felder was notified and the certificate has been completed. [id number]/[facility] #: [id number] MTDD
[2018-02-05] MEDS ORDERED: Scopolamine PATCH Remove* 1 NOTE MISC PATCH OFF SCH (05:30)
== END 2018-02-03 06:30 | disposition expired | DRG 535 ==
LOC: ED 03:13 → SSU 07:15 → MED 01-29 15:40
PROVIDERS: ADMIT Internal Medicine; ATTEND Student in an Organized Health Care Education/Training Program
DX: S72.001A Fracture of unspecified part of neck of right femur, initial encounter for closed fracture (principal); A41.9 Sepsis, unspecified organism; J18.9 Pneumonia, unspecified organism; J96.21 Acute and chronic respiratory failure with hypoxia; K50.90 Crohn's disease, unspecified, without complications; I50.32 Chronic diastolic (congestive) heart failure; I13.0 Hypertensive heart and chronic kidney disease with heart failure and stage 1 through stage 4 chronic kidney disease, or unspecified chronic kidney disease; N17.9 Acute kidney failure, unspecified; E87.2 Acidosis; C34.11 Malignant neoplasm of upper lobe, right bronchus or lung; Z51.5 Encounter for palliative care; Z66 Do not resuscitate; J44.9 Chronic obstructive pulmonary disease, unspecified; W01.198A Fall on same level from slipping, tripping and stumbling with subsequent striking against other object, initial encounter; J45.20 Mild intermittent asthma, uncomplicated; G47.30 Sleep apnea, unspecified; N18.9 Chronic kidney disease, unspecified; M81.0 Age-related osteoporosis without current pathological fracture; M41.9 Scoliosis, unspecified; G89.29 Other chronic pain; G62.9 Polyneuropathy, unspecified; F41.9 Anxiety disorder, unspecified; F32.9 Major depressive disorder, single episode, unspecified; F17.210 Nicotine dependence, cigarettes, uncomplicated; Y92.009 Unspecified place in unspecified non-institutional (private) residence as the place of occurrence of the external cause; R74.8 Abnormal levels of other serum enzymes; R79.1 Abnormal coagulation profile; I45.81 Long QT syndrome; R25.1 Tremor, unspecified; S00.81XA Abrasion of other part of head, initial encounter; R58 Hemorrhage, not elsewhere classified; R62.7 Adult failure to thrive; Z83.3 Family history of diabetes mellitus; Z88.1 Allergy status to other antibiotic agents; Z88.8 Allergy status to other drugs, medicaments and biological substances; Z88.7 Allergy status to serum and vaccine; Z86.718 Personal history of other venous thrombosis and embolism; Z86.711 Personal history of pulmonary embolism; Z99.81 Dependence on supplemental oxygen; Z93.2 Ileostomy status; Z90.49 Acquired absence of other specified parts of digestive tract; Z98.42 Cataract extraction status, left eye; Z98.41 Cataract extraction status, right eye; Z86.14 Personal history of Methicillin resistant Staphylococcus aureus infection; Z83.79 Family history of other diseases of the digestive system; Z72.89 Other problems related to lifestyle; Z74.01 Bed confinement status; Z79.52 Long term (current) use of systemic steroids; Z92.3 Personal history of irradiation; Z82.49 Family history of ischemic heart disease and other diseases of the circulatory system
CPT/HCPCS: 31622; 36415; 70450; 71045; 80048; 80053; 81003; 82550; 83605; 83735; 84484; 85025; 85060; 85610; 85730; 86850; 86900; 86901; 93005; 94640; 99285; A9270-GY; J0610; J0690; J0696; J1170; J1720; J2060; J2250; J2270; J2405; J2704; J2795; J2920; J3010; J3420; J3430; J3475; J3480; J7512